=== PATIENT | male | born 1955 | race African-American/Black ===

== ENCOUNTER 2018-08-25 11:50 | Inpatient (IN) ==
[2018-08-25] MEDS ORDERED: LASIX IV ONE (16:14)
--- NOTE | 2018-08-25 17:03 | Diag Imaging Result Doc PS360 ---
EXAM: CHEST-2 VIEWS INDICATION: edema TECHNIQUE: 2 views COMPARISON: 08/16/2018 FINDINGS: The right pleural effusion has increased during the interval. It is now moderate to large in size. There is worsened atelectasis and/or infiltrate at the right lung base. No other new consolidations are identified. Cardiac silhouette is stable. IMPRESSION: Interval redevelopment of the right pleural effusion with adjacent atelectasis and/or infiltrate. Electronically signed by Matthew Loyd 08/25/2018 5:01 PM
[2018-08-25 17:15] LABS: BASO# 0.01 X1000 (0.0-0.2); BASO% 0.2 % (0.0-0.8); EOS# 0.03 X1000 (0.0-0.7); EOS% 0.6 % (0.0-10.0); HEMATOCRIT 39.6 % (42.0-52.0); HEMOGLOBIN 12.4 g/dL (14.0-18.0); LYMPH# 1.21 X1000 (1.2-3.4); LYMPH% 25.5 % (20.5-51.1); MCH 28.5 PG (27-31); MCHC 31.3 g/dL (33-37); MONO% 10.5 % (1.7-9.3); MPV 11.1 FL (7.4-10.4); NEUT% 63.2 % (42.2-75.2); PLT 203 X1000 (130-400); RBC 4.35 XMIL (4.7-6.1); RDW 17.4 % (11.5-14.5); WBC 4.75 X1000 (4.8-10.8)
[2018-08-25 17:35] LABS: ALB/GLOB RATIO 0.6; ALBUMIN 2.7 g/dL (3.5-5.0); CALCIUM 8.6 mg/dL (8.8-10.2); POTASSIUM 4.3 mmol/L (3.5-5.1); TOTAL BILIRUBIN 0.55 mg/dL (0.20-1.00); TOTAL PROTEIN 7.2 g/dL (6.3-8.3)
[2018-08-25 21:09] LABS: INR 0.98; PROTIME 13.8 Seconds (11.0-16.0)
[2018-08-25 21:11] LABS: MAGNESIUM 2.5 mg/dL (1.5-2.7)
[2018-08-25 21:12] LABS: HEMOGLOBIN A1C 6.4 % (4.8-6.0)
[2018-08-25 21:20] LABS: PTT 46.3 Seconds (22.3-41.8)
--- NOTE | 2018-08-25 22:46 | HISTORY AND PHYSICAL ---
CHIEF COMPLAINT: Swelling in lower extremities. HISTORY OF PRESENT ILLNESS: Patient is a 62-year-old male who presented to [facility] Emergency Department noting he is having increased bilateral lower extremity edema. Unfortunately Mr. Stewart is an extremely poor historian, very difficult to answer the questions that were asked. Does states he has been having swelling off and on since his cardiac arrest months ago. Notes that he was seen on the for swelling but states that it has gotten worse. States he was on Lasix but thinks Dr. Quintanilla stopped this 2 or 3 weeks ago. Is unclear as to when the swelling got worse, unclear if he had swelling when he was on Lasix, unclear how much worse the swelling has gotten although he does state that now he has shortness of breath with activity, does appears though he is having orthopnea and unable to lie flat in the bed as when asked a question he said shoo man. REVIEW OF SYSTEMS: Positive shortness of breath, increased work of breathing, dyspnea on exertion, extreme swelling in his bilateral lower extremities to above his knee. Denies any fevers, chills, denies cough, congestion, denies chest pain, palpitations. Denies abdominal pain, diarrhea, nausea, vomiting, dysuria, frequency, urgency. Denies melena, hematochezia, hemoptysis, hematemesis. Does not check his weight on any regular basis. ALLERGIES: No known drug allergies. MEDICATIONS: Atorvastatin 80 at bedtime, Brilinta 90 b.i.d., insulin, hydralazine, isosorbide ER 60 mg daily, albuterol, aspirin, Lasix 40, Coreg 12.5 although unclear as to when he actually took any of these. FAMILY HISTORY: Noncontributory. SOCIAL HISTORY: Patient stopped smoking greater than year ago. Does have a history of alcohol abuse although states he does not drink currently. PHYSICAL EXAM: Temperature 97.3, pulse 89, respiratory 20, BP 147/86. GENERAL: Patient is awake, alert, currently he is in no respiratory distress, he is quite pleasant to talk with, he is sitting up in the chair. HEENT: Normocephalic. NECK: Supple. CV: Regular rate. No murmurs. CHEST: Decreased breath sounds bilaterally. Positive rhonchi throughout, no wheezing. ABDOMEN: Soft, nondistended, nontender. EXTREMITIES: Moves all extremities well. He has 3+ pitting edema bilateral lower extremities to his midthigh. SKIN: Warm, dry. LABS: CBC essentially normal. CMP with a BUN at 31, creatinine 2.0, glucose 212. Chest x-ray demonstrates a right pleural effusion. ASSESSMENT: 1. Congestive heart failure with exacerbation with marked edema in his lower extremities. 2. Diabetes. 3. Known coronary artery disease . 4. Marked swelling his lower extremities. PLAN: We will admit patient the hospital, place on sliding scale insulin, will restart his home medications once the doses have been confirmed exactly what he is taking. Will place him on Lasix and will follow. Further orders as needed. cc: Lio Sunshine MD
[2018-08-25] MEDS ORDERED: ZOFRAN IV PRN (22:54)
[2018-08-25] MEDS ORDERED: TYLENOL PO PRN (22:54)
[2018-08-25] MEDS: LASIX IV SCH (23:41)
[2018-08-26] MEDS ORDERED: ASPIRIN PO ONE (02:41)
[2018-08-26] MEDS ORDERED: LOVENOX 1 MG/KG SUBQ SCH (02:45)
[2018-08-26 03:34] LABS: BASO# 0.01 X1000 (0.0-0.2); BASO% 0.2 % (0.0-0.8); EOS# 0.04 X1000 (0.0-0.7); EOS% 0.8 % (0.0-10.0); HEMATOCRIT 36.4 % (42.0-52.0); HEMOGLOBIN 11.2 g/dL (14.0-18.0); LYMPH% 30.5 % (20.5-51.1); MCH 27.8 PG (27-31); MCHC 30.8 g/dL (33-37); MCV 90.3 FL (81-99); MONO# 0.56 X1000 (0.11-0.59); MONO% 10.7 % (1.7-9.3); MPV 11.1 FL (7.4-10.4); NEUT# 3.03 X1000 (1.4-6.5); NEUT% 57.8 % (42.2-75.2); PLT 212 X1000 (130-400); RBC 4.03 XMIL (4.7-6.1); RDW 17.2 % (11.5-14.5); WBC 5.24 X1000 (4.8-10.8)
[2018-08-26 03:56] LABS: ALB/GLOB RATIO 0.8; ALBUMIN 2.7 g/dL (3.5-5.0); CALCIUM 8.1 mg/dL (8.8-10.2); CREATININE 2.3 mg/dL (0.7-1.2); POTASSIUM 4.4 mmol/L (3.5-5.1); TOTAL BILIRUBIN 0.52 mg/dL (0.20-1.00); TOTAL PROTEIN 6.2 g/dL (6.3-8.3)
[2018-08-26] MEDS: LOVENOX SUBQ SCH ×2 (05:00→20:47)
[2018-08-26] MEDS: HUMALOG SUBQ SCH ×4 (06:35→20:48)
--- NOTE | 2018-08-26 08:37 | EKG Report ---
Test Performed on : 08/26/2018 01:54:40 AM Test Reason : Elevated Troponin, Poss. NSTEMI Blood Pressure : / mmHG Vent. Rate : 088 BPM Atrial Rate : 088 BPM P-R Int : 106 ms QRS Dur : 112 ms QT Int : 404 ms P-R-T Axes : 006 -07 212 degrees QTc Int : 488 ms Sinus rhythm. with short [place] Voltage criteria for left ventricular hypertrophy Cannot rule out Inferior infarct , age undetermined ST & T wave abnormality, consider lateral ischemia Abnormal ECG When compared with ECG of 16-AUG-2018 13:14, (Unconfirmed) T wave inversion more evident in Inferior leads Confirmed by Devaughn RAYMOND, Randall Darnell ([id number]) on 08/26/2018 1:12:37 PM
--- NOTE | 2018-08-26 09:42 | PROGRESS NOTE ---
DATE: 08/26/2018 OVERNIGHT EVENTS: Mr. Stewart was admitted for worsening bilateral lower extremity edema and shortness of breath on exertion, who was admitted for intravenous diuresis for acute exacerbation of chronic systolic congestive heart failure. He did not have chest pain or palpitation on admission. Overnight when his blood tests were drawn, his troponins came out to be elevated to 8. Repeat troponin 3 hours later was 7. During this entire episode, he did not have chest pain. He was given 325 mg of aspirin and was started on therapeutic doses of enoxaparin. SUBJECTIVE: In the morning when I saw the patient, he is lying in the bed comfortably. Denies any chest pain, palpitation. He feels a little short of breath when he tries to do physical exertion. Otherwise, denies shortness of breath. He is most worried about his lower extremity edema. He states that he had multiple thoracenteses in the past; the most recent one was 1 week ago. Since then, he denies any chest pain or palpitation. However, he did have an episode of nausea one time. We discussed about his elevated troponin and, considering his previous history of heart attack, we discussed with him about transferring him to [facility]. I answered all of his questions. OBJECTIVE: Vital signs: Temperature 99.4 degrees, pulse 86, blood pressure 143 /93, saturating 100% on room air. General examination: Physical examination reveals he does not appear in any acute distress. Appears a little tachypneic. Ears/nose/throat: Oral cavity is moist. Lungs: Air entry bilaterally equal in suprascapular region. Significantly decreased air entry in the right infrascapular region. Cardiovascular: S1, S2 normal. No murmur, rub, or gallop. Abdomen: Soft, nontender. Extremities: Edema affecting bilateral lower extremities 3 + extending up to the distal thighs. LABS: Suggestive of no leukocytosis. Hemoglobin, hematocrit, and platelets within acceptable range. Normal coagulation. Normal chemistry, except baseline chronic kidney disease stage III. Elevated troponins 8.1 on initial troponin, going down to 7.1 on repeat troponin examination. X-RAYS: EKG: At nighttime, the EKG did have anterolateral T-wave inversions which were more or less similar to previous EKG, which were obtained in March and May of this year. However, I could see new Q-waves in lead 3, which I did not see in the previous EKG when I compared. ASSESSMENT AND PLAN: 1. Acute on chronic systolic congestive heart failure due to dietary indiscretion, suspected medication noncompliance and inadequate Lasix dosing. Considering his elevated troponin, he might have had myocardial infarction, but currently the Q-wave suggests that his infarction might have become complete. Continue intravenous Lasix with close input and output monitoring. I will start his home carvedilol. 2. History of coronary artery disease, non-ST segment elevation myocardial infarction in 2016 and right coronary artery stent in July 2017 with now elevated troponins and Q waves in lead 3. This could be in the setting of acute coronary syndrome that might have happened recently. Continue patient on aspirin, high-dose statin, and enoxaparin therapeutic doses. Cardiology has been consulted. I will appreciate recommendation about starting Brilinta in future, which is his home medication. 3. History of insulin-dependent diabetes mellitus. Continue fingersticks, close blood sugar monitoring, and add sliding scale insulin as needed. 4. Recurrent right-sided pleural effusion. Continue intravenous Lasix. Depending on his course, will consult surgical team to see if he could be a candidate for surgical intervention considering his multiple recurrent pleural effusions on the right side. 5. Hyperlipidemia. Continue high-dose statin. 6. Hypertension. Continue Coreg. I will add his home isosorbide and hydralazine as tolerated. 7. CKD stage 3: Aware. Follow up frequent BMP. 7. Disposition: Patient remains inside the hospital. I will transfer patient to [facility]. Plan of care discussed with the patient. All of his questions have been answered. cc: MD PILO Marcus
[2018-08-26] MEDS: LIPITOR PO SCH ×2 (09:53→10:03)
[2018-08-26] MEDS: COREG PO SCH ×2 (09:53→20:47)
[2018-08-26] MEDS: ASPIRIN PO SCH (09:53)
[2018-08-26] MEDS: LASIX IV SCH ×2 (11:31→20:50)
--- NOTE | 2018-08-26 14:06 | CARDIOLOGY CONSULTATION ---
DATE: 08/26/2018 CHIEF COMPLAINT ON PRESENTATION: Shortness of breath. HISTORY OF PRESENT ILLNESS: Mr. Stewart is a 62-year-old black male with a history of ischemic cardiomyopathy. He is an extremely difficult patient to question. It seems that this has been going off and on for years but has worsened over the last few days. Per evaluation of the patient's history, he has not been compliant with his medications. He denies any overt orthopnea. He has not had any recent bouts of any chest pain. He seems to endorse some history of a cardiac arrest but I cannot find it on review of our notes in the office. PAST MEDICAL HISTORY: 1. Coronary disease. His last cardiac catheterization was in July of 2017 demonstrating a left main 30% lesion, LAD had a mid 50% lesion, distal 50% lesion, circumflex 20% lesion, marginal 60%, and RCA was a dominant vessel with an in-stent stenosis in the mid segment that was treated with a PCI at the time. 2. Ischemic cardiomyopathy. Most recent ejection fraction demonstrated in the 20 to 25% range. 3. Pneumonia. 4. Hypertension. 5. Hyperlipidemia. 6. Diabetes. 7. Tobacco abuse. 8. Chronic kidney disease. 9. Alcohol abuse. 10. Peripheral vascular disease. 11. Long history of noncompliance. SOCIAL HISTORY: Quit smoking greater than a year ago. Reportedly he is not currently drinking alcohol. FAMILY HISTORY: Significant for hypertension. REVIEW OF SYSTEMS: A 10 system review of systems is negative except for those things mentioned in HPI. PHYSICAL EXAMINATION: Vital signs: The patient is afebrile. His heart rate is 83. His blood pressure is 116/65. General: He is in no acute distress. HEENT: Oropharynx is moist. He has poor dentition. His eye examination shows pink conjunctivae, white sclerae. Neck: Examination shows no obvious thyromegaly or thyroid tenderness. Cardiovascular: He sounds to be in a regular rate and rhythm. He has no obvious murmurs. He has marked bilateral lower extremity edema and warm and well perfused lower extremities. Chest: Clear bilaterally with the exception of reduced breath sounds in the right base. Abdomen: Soft, nontender, nondistended. He has no obvious organomegaly. Skin: Warm and dry throughout without any rashes. Neurological: He is moving all extremities well. He has no lateralizing deficits. Psychiatric: He is alert, oriented, pleasant. Normal mood and affect. PERTINENT DATA: His chest x-ray shows interval redevelopment of a significant right-sided pleural effusion. His electrocardiogram previously at his office visit in June of 2018 demonstrated sinus rhythm, rate of 64 beats per minute. Diffuse ST-segment changes throughout. No clear evidence of significant Q-waves. His most recent EKG suggested inferior Q-waves with again diffuse ST-T segment changes. No ST elevation was identified. His EKG from August 16 demonstrates again Q-waves inferiorly. ST-segment changes diffusely. His lab data demonstrates a white count of 5.2, hematocrit 36, platelet count of 212,000. His sodium is 140, potassium 4.4, BUN 32, creatinine is 2.3. His troponin initially was 8.17 and since has come down to 6.1. He did have an enzyme of 0.068 back in July. His proBNP is greater than 35,000. ASSESSMENT: Mr. Stewart is a 62-year-old black male who was an extremely difficult historian with an ischemic cardiomyopathy. PLAN: He presents with medication noncompliance, no complaints of chest pain, and an EKG that does not appear to have changed much since his last 1 in the hospitalization. His lab abnormalities suggest florid volume overload. We have reinstitute his medications. We have limited I O data at this time but we will continue him on his current med regimen. I agree with having him on Lovenox as he currently is on. I would continue on aspirin, statin, and the Coreg. We will check an echo tomorrow if not already done. We will try to diurese the patient and consider potential re-ischemia evaluation, likely with a nuclear scan initially. cc: Ld Ortiz MD
[2018-08-26] MEDS: APRESOLINE PO SCH ×2 (14:11→17:16)
[2018-08-26] MEDS: MIRALAX PO SCH (20:47)
[2018-08-27] MEDS: LASIX IV SCH ×2 (01:38→22:07)
[2018-08-27 05:42] LABS: CREATININE 2.3 mg/dL (0.7-1.2); POTASSIUM 4.2 mmol/L (3.5-5.1)
[2018-08-27] MEDS: HUMALOG SUBQ SCH ×4 (06:15→22:09)
[2018-08-27] MEDS: COREG PO SCH ×2 (08:36→22:08)
[2018-08-27] MEDS: APRESOLINE PO SCH ×3 (08:36→16:51)
[2018-08-27] MEDS: ASPIRIN PO SCH (08:36)
[2018-08-27] MEDS: LIPITOR PO SCH (08:37)
[2018-08-27] MEDS: MIRALAX PO SCH ×2 (08:37→22:09)
[2018-08-27] MEDS: LOVENOX SUBQ SCH ×2 (08:37→22:08)
[2018-08-27] MEDS ORDERED: LASIX IV SCH ×2 (11:30)
--- NOTE | 2018-08-27 11:57 | PROGRESS NOTE ---
DATE: 08/27/2018 OVERNIGHT: No acute events. His troponins were trending down. He did not have acute event. Cardiology had evaluated the patient, and it was suggested that he was on an appropriate regimen. SUBJECTIVE: He is denying any chest pain. His shortness of breath is a little better. He did not collect his urine appropriately, and he might have not appropriate urine charting. We discussed about his heart condition, possible heart attack intervention. I answered all of his questions. OBJECTIVE: Vital Signs: Temperature 97.6, pulse 69, blood pressure 120/60, saturating 100% on room air. PHYSICAL EXAMINATION: He does not appear in any acute distress. Not tachypneic. Oral cavity is moist. No pallor, cyanosis, clubbing or icterus. Air entry is bilaterally equal in suprascapular region significantly decreased air entry in the right infrascapular region. Cardiovascular: S1, S2 normal. No murmur, rub, or gallop. Abdomen soft, nontender. Extremities: Edema affecting the bilateral lower extremities up to distal thigh. LABORATORY DATA: Labs today suggestive of normal electrolytes, stable BUN and creatinine and what appears to be CKD stage 3. No new imaging today. ASSESSMENT AND PLAN: 1. [id number] systolic congestive heart failure due to dietary indiscretions. Suspected medication noncompliance, inadequate Lasix dosing, suspected new acute coronary syndrome event. Continue intravenous Lasix with close input and output monitoring. He did not have good urine output yesterday, and I am going to increase his Lasix dosing in frequency today and will follow up BMP tomorrow. 2. History of coronary artery disease, non-segment elevation myocardial infarction in 2016 and right coronary artery stent in July, with elevated troponin on presentation and Q- waves in lead III could be in the setting off an ischemic acute coronary syndrome event before hospitalization. Continue aspirin, high-dose statin, enoxaparin at therapeutic doses. Cardiology on board. We appreciate recommendation about restarting Brilinta infusion. 3. History of insulin-dependent diabetes mellitus. Continue fingersticks, close blood sugar monitoring and sliding scale insulin. 4. Recurrent right pleural effusion. Continue intravenous Lasix. I will follow up with chest x- ray on 08/28/2017. If he does not respond to intravenous Lasix, I will consider surgical consultation considering his recurrent pleural effusion to see if would need further surgical intervention. 5. Hyperlipidemia. Continue high-dose statin. 6. Hypertension. Continue Coreg and hydralazine. I will add isosorbide as tolerated. 7. Chronic kidney disease, stage 3, aware. Follow up frequent BMP. It could be related to long- standing hypertension and diabetes and follow up with hemoglobin A1c. Apparently, the patient gave a vague history which could suggest suspected renal artery stenosis. 8. Severe peripheral artery disease with significant decreased bilateral radial pulses. He also had bilateral lower extremity edema. So, pedal pulses could not be assessed. Continue aspirin and statin. DISPOSITION: Patient remains inside [facility]. cc: Jaime Greene MD
--- NOTE | 2018-08-27 14:07 | CARDIOLOGY PROGRESS NOTE ---
DATE: 08/27/2018 SUBJECTIVE: Mr. Stewart continues to complain of shortness of breath as well as lower extremity edema. PHYSICAL EXAMINATION: Vital Signs: He is afebrile. Heart rate is 68. His blood pressure is 126/72. General: He is in no acute distress. Cardiovascular: He sounds to be in a regular rate and rhythm. He has no obvious murmurs. His neck veins do appear distended. He has 2+ bilateral lower extremity edema and warm and well perfused lower extremities. Chest/Lungs: His chest exam has reduced breath sounds at the bases. No increased work of breathing. PERTINENT DATA: Sodium 141, potassium 4.2, BUN 37, creatinine 2.3 which is roughly stable from yesterday. ASSESSMENT: Mr. Stewart is a 62-year-old male with ischemic cardiomyopathy. PLAN: I will give him a 5 mg dose of metolazone in the morning. Reduce his Lasix to b.i.d. dosing. In addition, I have also added back in his ISDN at 10 t.i.d. We will ensure he has laboratories in the morning including a BMP and a proBNP as well as a magnesium. We will check his lipids. I will order a rest perfusion scan in the morning and try to compare this to other studies with his. cc: Ld Ortiz MD
--- NOTE | 2018-08-27 14:21 | ECHO REPORT ---
ORDER DATE: 08/27/2018 INDICATION: Congestive heart failure. FINDINGS: 1. The right atrium appears moderately enlarged at 5.1 cm. 2. Mild tricuspid regurgitation. RV systolic pressure of 43 mmHg. 3. Mild right ventricular enlargement with moderate right ventricular systolic dysfunction. 4. Mild pulmonic insufficiency. 5. Severe left atrial enlargement with volume index of 47. 6. No mitral valve prolapse. Mild mitral regurgitation. 7. Left ventricle was dilated with an end-diastolic dimension of 6 cm. Mild left ventricular hypertrophy with a posterior and interventricular septal wall thickness of 1.4 and 1.3 cm respectively. Severe reduction in LV systolic function with an estimated EF in the 15% to 20% range. 8. There is severe global hypokinesis. 9. Aortic valve opens well. It is trileaflet. No evidence of stenosis or insufficiency. 10. Aorta appears normal on visualized segments. 11. No pericardial effusion seen. cc: Ld Ortiz MD
[2018-08-27] MEDS: ISORDIL PO SCH ×2 (16:51→16:52)
--- NOTE | 2018-08-27 19:52 | PROGRESS NOTE ---
DATE: 08/27/2018 SUBJECTIVE: I was informed that Mr. Stewart has not been collecting his urine in the urinal and had been going inside the bathroom so we have not been able to monitor his urine output. I was also informed that there has been bedcrunch and however suggested if any of my patients was stable I should transfer them out of [facility]. Mr. Stewart has not had any telemetry events since his admission, has been almost 36 hours. He denies any chest pain or shortness of breath. He is on a stable regimen and hemodynamically stable, so I will transfer him out of [facility] to medical floor with telemetry. cc: Jaime Greene MD MTDD
[2018-08-28] MEDS: HUMALOG SUBQ SCH ×4 (06:27→20:58)
--- NOTE | 2018-08-28 06:57 | Diag Imaging Result Doc PS360 ---
EXAM: CHEST-PORTABLE HISTORY: Follow up right pleural effusion TECHNIQUE: Portable chest, single view COMPARISON: 08/25/2018 FINDINGS: There is a moderate-sized right-sided pleural effusion. There are infiltrates and atelectasis within the right lung. The left lung remains clear. Heart is borderline mildly prominent. No left pleural effusion. IMPRESSION: Mild worsening in the infiltrates and atelectasis within the right lung with a moderate-sized pleural effusion. Electronically signed by Juan Henderson 08/28/2018 6:55 AM
[2018-08-28 07:41] LABS: CALCIUM 8.8 mg/dL (8.8-10.2); CREATININE 2.4 mg/dL (0.7-1.2); MAGNESIUM 2.1 mg/dL (1.5-2.7); POTASSIUM 4.1 mmol/L (3.5-5.1)
[2018-08-28 08:51] LABS: HDL 31 mg/dL (35-55); TRIGLYCERIDES 117 mg/dL (39-160); VLDL 23 mg/dL
[2018-08-28] MEDS ORDERED: ZAROXOLYN PO SCH (09:00)
[2018-08-28 09:36] LABS: CHOLESTEROL 181 mg/dL (0-200); LDL 126 mg/dL
[2018-08-28 09:39] LABS: RISK RATIO 5.83
--- NOTE | 2018-08-28 11:42 | EKG Report ---
Test Performed on : 08/26/2018 07:36:42 AM Test Reason : Elevated Troponin,CHF Blood Pressure : / mmHG Vent. Rate : 087 BPM Atrial Rate : 087 BPM P-R Int : 104 ms QRS Dur : 110 ms QT Int : 388 ms P-R-T Axes : 027 -04 244 degrees QTc Int : 466 ms Sinus rhythm. with short [place] Voltage criteria for left ventricular hypertrophy ST & T wave abnormality, consider inferolateral ischemia Abnormal ECG When compared with ECG of 26-AUG-2018 07:31, (Unconfirmed) No significant change was found Confirmed by Gucci RAYMOND, Jamal Oakley ([id number]) on 08/28/2018 7:14:56 PM
--- NOTE | 2018-08-28 13:38 | Diag Imaging Result Doc PS360 ---
EXAM: US THORACENTESIS W/IMAGE GUIDE HISTORY: large R pleural effusion TECHNIQUE: Ultrasound-guided thoracentesis COMPARISON: None. FINDINGS: Prior to the procedure I discussed the risk and benefits with the patient. Primary risks include bleeding, infection, and pneumothorax. Questions were answered. Consent was given. The permit was signed. Ultrasound was used to localize the largest fluid collection in the right chest. This area was cleaned and draped in the normal fashion. Lidocaine was used as a local anesthetic. Needle and catheter were advanced into the fluid collection on the first attempt without difficulty. The needle was withdrawn. The catheter was hooked to hand suction. Approximately 1.5 L of straw-colored fluid were withdrawn without difficulty. The catheter was then withdrawn. No immediate postprocedural complications. IMPRESSION: Ultrasound-guided thoracentesis with no immediate complication. Electronically signed by Juan Henderson 08/28/2018 1:36 PM
[2018-08-28] MEDS: APRESOLINE PO SCH ×3 (13:42→17:34)
[2018-08-28] MEDS: ISORDIL PO SCH ×2 (13:42→13:49)
--- NOTE | 2018-08-28 13:46 | Diag Imaging Result Doc PS360 ---
EXAM: CHEST-2 VIEWS HISTORY: POST RIGHT THORA TECHNIQUE: Inspiratory and expiratory chest, two views COMPARISON: 5:40 AM FINDINGS: Interval decrease in the size of the right-sided pleural effusion following the thoracentesis. No pneumothorax. There is atelectasis and/or infiltrates which remain in the right lung base. The left lung remains clear. IMPRESSION: No postprocedural pneumothorax. Electronically signed by Juan Henderson 08/28/2018 1:43 PM
[2018-08-28] MEDS: COREG PO SCH ×2 (13:48→20:57)
[2018-08-28] MEDS: ASPIRIN PO SCH (13:48)
[2018-08-28] MEDS: LOVENOX SUBQ SCH ×2 (13:49→20:57)
[2018-08-28] MEDS: MIRALAX PO SCH ×2 (13:49→20:57)
[2018-08-28] MEDS: LIPITOR PO SCH (13:49)
[2018-08-28] MEDS: LASIX IV SCH ×2 (14:29→20:57)
[2018-08-28 15:59] LABS: LDH BODY FLUID 104 U/L; TOTAL PROT BODY FLUID 1.2 g/dL
--- NOTE | 2018-08-28 16:10 | Diag Imaging Result Document ---
PROCEDURE NAME: MYOCARDIAL PERFU SCAN, REST - 08/28/2018 RESTING MYOCARDIAL PERFUSION SCAN: TECHNIQUE AND FINDINGS: 36.7 mCi of Cardiolite was injected. Gated SPECT images were obtained in standard views. Images reveal left ventricle is dilated. There is a large-sized defect in the inferior wall, inferoapical wall, inferolateral and inferoseptal wall. Left ventricular ejection fraction by gated SPECT was 20%. There is global hypokinesis. CONCLUSIONS: Dilated left ventricle. This is a resting myocardial perfusion scan with large- sized defect, severe grade, in the inferior wall, inferoseptal, inferolateral and inferoapical wall. Left ventricular ejection fraction 20%. cc: MD Ld Ortega MD
--- NOTE | 2018-08-29 04:32 | CARDIOLOGY PROGRESS NOTE ---
DATE: 08/28/2018 SUBJECTIVE: Mr. Stewart reports he feels better. He underwent a right-sided thoracentesis today with removal of around a liter and a half. He has no complaints of chest pain. PHYSICAL EXAMINATION: Vital signs: He is afebrile. Heart rate is 72, blood pressure 118/70. His intake and output continues to be negative, but there is some question of accuracy as the patient has not had good recording of his oral intake nor has he had adequate output recording. General: He is in no acute distress. Cardiovascular: He sounds to be in a regular rate and rhythm. He has no obvious murmurs. He has no S3. He has marked bilateral lower extremity edema. He continues to appear to have elevation of his JVP. He has warm and well perfused extremities. Chest exam: Notable for mild reduction in breath sounds on the right base although they appear somewhat improved. He has no increased work of breathing. Abdomen: Soft, nontender. PERTINENT DATA: Sodium 137 potassium 4.1, BUN 37, creatinine 2.4. ProBNP is 31 ,009, which is down from his initial greater than 35,000. ASSESSMENT: Mr. Stewart is a 62-year-old gentleman with ischemic cardiomyopathy. PLAN: The patient seems to be diuresing, however, our ability to assess this is somewhat compromised secondary to the patient's uncooperativeness with measuring his intake and output. His proBNP does seem to be coming down. We have made significant adjustments in his medications with the advancement of his ISDN and hydralazine. Also, the patient was not compliant with these medications, so likely we are initiating essentially new medications for him at this time. We will continue to check his labs. A BMP has been ordered for the morning. I will recheck a proBNP as well as a magnesium. cc: Ld Ortiz MD [facility]
[2018-08-29] MEDS: HUMALOG SUBQ SCH ×5 (06:01→21:28)
[2018-08-29 07:50] LABS: CALCIUM 8.5 mg/dL (8.8-10.2); CREATININE 2.3 mg/dL (0.7-1.2); MAGNESIUM 1.9 mg/dL (1.5-2.7); TOTAL PROTEIN 5.5 g/dL (6.3-8.3)
[2018-08-29] MEDS: LOVENOX SUBQ SCH (08:39)
[2018-08-29] MEDS: APRESOLINE PO SCH ×3 (08:39→17:06)
[2018-08-29] MEDS: LIPITOR PO SCH (08:39)
[2018-08-29] MEDS: COREG PO SCH ×2 (08:40→21:36)
[2018-08-29] MEDS: ISORDIL PO SCH ×3 (08:40→17:06)
[2018-08-29] MEDS: LASIX IV SCH ×2 (08:40→21:37)
[2018-08-29] MEDS: ASPIRIN PO SCH (08:40)
[2018-08-29] MEDS: MIRALAX PO SCH ×2 (08:40→21:37)
--- NOTE | 2018-08-29 08:58 | PROGRESS NOTE ---
DATE: 08/28/2018 INTERVAL HISTORY: The patient with some diuresis on high-dose Lasix. Some difficulty measuring intake and output as the patient has not been compliant with using the urinal. Discussed with patient. Still some dyspnea especially with activity, but does seem to be improving slowly. Cardiology following and planning for perfusion scan today. Given ongoing large volume pleural effusion, also planning on thoracentesis later today. No new complaints. No acute events overnight. REVIEW OF SYSTEMS: A 12-point review of systems is negative except as per interval history. LABORATORY DATA: BUN 37, creatinine 2.4, glucose 128. BNP 31,000. Basic metabolic panel, otherwise, unremarkable. IMAGING: Chest x-ray showing [id number] right pleural effusion and slight worsening of atelectasis in the right lung. VITAL SIGNS: T-max 98.7, pulse 70, blood pressure 124/69, O2 sat 99% on room air. PHYSICAL EXAMINATION: General: In no acute distress. HEENT: Normocephalic, atraumatic, moist mucous membranes. No cervical adenopathy. Cardiovascular: Regular rate and rhythm. No rubs or gallops noted. Pulmonary: Good air entry. Decreased at the right base, otherwise, largely clear. Abdomen soft, nontender, nondistended. Bowel sounds positive. Extremities: Peripheral pulses decreased but intact. Significant bilateral lower extremity edema remains. Neurologic: Cranial nerves 2-12 grossly intact. No focal motor or sensory deficits. Psychiatric: Normal mood and affect. Asleep but easily arousable and oriented x3. Skin: No new rashes or lesions noted. ASSESSMENT AND PLAN: 1. [id number] congestive heart failure, likely with medical noncompliance. Given significant elevated troponin on admission may also have had a new cardiac event. Going for continuing Lasix and going for perfusion scan today to clarify status and determine the need for cardiac cath. 2. Coronary artery disease, Non-ST elevation myocardial infarction. Patient with elevated troponin on presentation, which did trend down. Continuing aspirin, statin, Lovenox. Cardiology is on board and planning for perfusion testing to determine the need for further intervention. 3. Diabetes, reasonable control. Sugars were all on current sliding scale insulin. Continue to monitor. 4. Right pleural effusion related to systolic congestive heart failure. A little improvement with Lasix. We will get a thoracentesis today, primarily for therapeutic relief. 5. Hyperlipidemia. Continue statin. 6. Hypertension, reasonable control with Coreg, hydralazine, isosorbide dinitrate and Lasix. 7. Chronic kidney disease, 3, bordering on 4. Some slight up trend in creatinine but, overall, pretty stable. Continue to monitor kidney function in a setting of progressive diuresis. 8. Peripheral arterial disease. Continue aspirin and statin as above. 9. Deep venous thrombosis prophylaxis; Lovenox.
--- NOTE | 2018-08-29 21:08 | PROGRESS NOTE ---
DATE: 08/29/2018 INTERVAL HISTORY: The patient with some further diuresis. Dyspnea largely resolved and saturating well on room air. Still some lower extremity edema but states this is markedly improved from previous. No new complaints, no acute events overnight. Status post successful right thoracentesis yesterday with 1.5 L out. REVIEW OF SYSTEMS: Twelve point review of systems negative except as per interval history. LABS: Bicarb 23, BUN 38, creatinine 2.3, glucose 135, alkaline phosphatase 282, total protein 5.5, pleural fluid total protein 1.2, pleural fluid LDH 104, serum LDH 282. VITALS: T-max 98.7 degrees, pulse 75, respirations 20, blood pressure 132/78, O2 saturation 99% on room air. PHYSICAL EXAMINATION: General: No acute distress. Vitals as above. HEENT: Normocephalic, atraumatic. Moist mucous membranes. No cervical adenopathy. Cardiovascular: Regular rate and rhythm. No murmur, murmurs, rubs, or gallops noted. Pulmonary: Good air entry, still slightly decreased at right base but much less than previous otherwise clear to auscultation. Abdomen: Soft, nontender, nondistended. Bowel sounds positive. Extremities: Peripheral pulses decreased but intact, bilateral lower extremity edema 1 to 2+ unchanged. Neurologic: Cranial nerves 2-12 grossly intact. No focal motor sensory deficits. Psychiatric: Normal mood and affect. Awake, alert, oriented x3. Skin: No new rashes or lesions noted. ASSESSMENT AND PLAN: 1. Acute on systolic congestive heart failure likely medical noncompliance. Significantly elevated troponin on admission. Perfusion scan yesterday showing significant defect but previous scan not available to me. Awaiting cardiology evaluation of current versus previous scan to see if any further evaluation or treatment is needed for this. Acute congestive heart failure essentially resolved at this point, still some changes on x-ray but oxygenating well. Dyspnea essentially resolved and lower extremity edema markedly improved. Likely approaching maximum benefit of hospitalization at this point. Awaiting final Cardiology recs. 2. Coronary artery disease, non-ST segment elevation myocardial infarction: Patient with elevated troponin on admission which did trend down, continuing aspirin, statin, Lovenox. Awaiting final Cardiology recs as above. 3. Diabetes reasonable control of glucose on current sliding scale insulin, continue to monitor. 4. Right pleural effusion: Related to congestive heart failure as above. Status post thoracentesis 08/28/2018 with 1.5 L removed, pleural fluid studies consistent with transudate which is consistent with his heart failure. 5. Hyperlipidemia. Continue statin. 6. Hypertension reasonable control with Coreg, hydralazine, isosorbide and Lasix. 7. Chronic kidney disease 3 border on 4 very slight up trend in creatinine but overall stable, continue monitoring kidney function. 8. Peripheral arterial disease, continue aspirin and statin as above. 9. Deep vein thrombosis prophylaxis Lovenox. 10. Disposition. Respiratory status stable, lower extremity edema markedly improved, pleural effusion drained. Plan for discharge home once he is cleared by Cardiology.
[2018-08-30] MEDS: HUMALOG SUBQ SCH ×4 (05:20→21:56)
[2018-08-30] MEDS: ULTRAM PO PRN (08:26)
[2018-08-30] MEDS: LIPITOR PO SCH (08:26)
[2018-08-30] MEDS: PLAVIX PO SCH (08:26)
[2018-08-30] MEDS: COREG PO SCH ×2 (08:26→22:58)
[2018-08-30] MEDS: ISORDIL PO SCH ×3 (08:26→16:28)
[2018-08-30] MEDS: APRESOLINE PO SCH ×3 (08:26→16:29)
[2018-08-30] MEDS: LASIX IV SCH (08:27)
[2018-08-30] MEDS: MIRALAX PO SCH ×2 (08:28→21:56)
[2018-08-30] MEDS ORDERED: LOVENOX SUBQ SCH (09:00)
[2018-08-30] MEDS: ASPIRIN PO SCH (09:27)
[2018-08-30 10:11] LABS: CALCIUM 8.5 mg/dL (8.8-10.2); CREATININE 2.5 mg/dL (0.7-1.2)
--- NOTE | 2018-08-30 10:12 | Diag Imaging Result Doc PS360 ---
EXAM: CHEST-2 VIEWS 08/30/2018 HISTORY: dyspnea, pleural effusion TECHNIQUE: PA and lateral chest COMMENT: There is elevation of the left hemidiaphragm and blunting the costophrenic angle which may indicate pleural effusion. The atelectasis present in the right middle and lower lobes at the time the previous examination of 08/28/2018 has diminished. The left lung is stable in appearance. The heart size is at the upper limits of normal. IMPRESSION: Improved right basilar atelectasis. Right pleural effusion. Electronically signed by Chan Abdi 08/30/2018 10:10 AM
[2018-08-30] MEDS ORDERED: LIDODERM TOP ONE (10:40)
--- NOTE | 2018-08-30 12:23 | PROGRESS NOTE ---
DATE: 08/30/2018 SUBJECTIVE: This patient has been complaining of nose bleed. I have stopped the Lovenox but I will continue with aspirin and Plavix since this patient has an ischemic cardiomyopathy, non- STEMI. Cardiology department on board. I have requested to the nurse to notify the Cardiology aitchbone breaker today about the nosebleed. On the other hand, I will continue with the same management. He is complaining of back pain. He got a thoracentesis done on 08/28/2018 and that area is sore. I will put a patch of lidocaine and I will continue with the tramadol. OBJECTIVE: Vital Signs: Temperature 97.5 degrees, pulse 60, respiratory rate 18, blood pressure 109/48, oxygen saturation 100% on room air. HEENT: Head normocephalic. No trauma. PERRLA. Neck: Supple. No JVD. No masses. Central trachea. Chest: Clear to auscultation. Some crepitus and rales at the bases, mostly on the right side. Abdomen: Soft, nontender, nondistended. No hepatosplenomegaly. Extremities: 2+ lower extremity edema. No clubbing. No cyanosis. Neurological: The patient is alert and oriented x3. No focal deficits. LABORATORY: Sodium 134, potassium 4, chloride 97, bicarbonate 27, BUN 41, creatinine 2.5, glucose 109, calcium 8.5. ProBNP 24,278. ASSESSMENT AND PLAN: 1. Acute on chronic systolic heart failure likely due to medical noncompliance. We will continue with the same management. Cardiology Department on board. Continue with diuresis. We have been getting a negative balance for the past few days, ProBNP lower compared with admission but still elevated at 24,000. 2. Ischemic cardiomyopathy, likely non ST elevation myocardial infarction. Continue this patient on Plavix, aspirin, and statin. I will continue following the Cardiology recommendations. 3. Type 2 diabetes. Continue with the same management of sliding scale insulin and pattern of blood sugar. 4. Right pleural effusion status post thoracentesis on 08/28/2018, 1.5 L of fluid has been removed. This is a transudate which is consistent with heart failure. He is complaining of pain in the area of the thoracentesis. I will put a patch of lidocaine. 5. Hyperlipidemia. Continue with statins. 6. Hypertension. Continue with same management. 7. Chronic kidney disease, stage 3 to 4. Continue to monitor. He is getting diuretics. We will monitor this closely. 8. Peripheral arterial disease. Continue with aspirin, Plavix. 9. Deep vein thrombosis prophylaxis. I will hold the Lovenox because this patient is having a nose bleed. I will continue aspirin and Plavix. 10. Nosebleed. Will hold the Lovenox and put some pressure in that area and at the moment of my physical exam, it has already stopped. DISPOSITION: He seems to be getting better. We will continue following the recommendation of Cardiology Department and I will discharge this patient home once he is cleared by Cardiology. cc: Rigo Franco MD
--- NOTE | 2018-08-30 16:59 | PROGRESS NOTE ---
DATE: 08/30/2018 SUBJECTIVE: Patient continues without shortness of breath or chest discomfort on room air. He has been bothered with nose bleed today. Lovenox has been discontinued. He relates some problems with left lower extremity edema prior to coming into the hospital. There has been no angina or chest pain. Chief complaint has been pretty much shortness of breath prior to coming to the hospital. OBJECTIVE: Blood pressure 107/80, heart rate 70, oxygen saturation 100% on room air. There is no significant jugular venous distention.Chest: Reveals significant diminished breath sounds in the right base and minimally diminished breath sounds in the most basal part of the left posterior chest. Cardiac: Reveals a regular rate and rhythm without appreciable murmur or gallop. Extremities: Demonstrate mild edema a little worse on the left side. LABORATORY DATA: Includes sodium 134, potassium 4.0, chloride 97, carbon dioxide 27, BUN 41, creatinine 2.5, glucose 109. Repeat chest x-ray today shows elevated right hemidiaphragm suspicious for subpulmonic effusion on the right. Mild cardiomegaly demonstrated. IMPRESSION: 1. Acute on chronic systolic heart failure with prominent pleural effusions mostly on the right side which has been recurrent. Patient improved with diuresis and thoracentesis. 2. Ischemic cardiomyopathy, severe. 3. Lower extremity swelling, rule out DVT. 4. Type 2 diabetes mellitus. 5. Hypertension. 6. Hyperlipidemia. 7. Chronic kidney disease stage 3 to stage 4. RECOMMENDATIONS: 1. Continue diuresis at more cautious rate. 2. Venous Doppler study of the lower extremities. 3. Pulmonary toilet/incentive spirometry. 4. Noncontrast chest CT scan tomorrow to further assess unresolved pleural effusion and unrelenting atelectasis of right lower lung segments. cc: Eldon Robins MD
--- NOTE | 2018-08-30 17:54 | Diag Imaging Result Doc PS360 ---
EXAM: CT THORAX W/O CONTRAST 08/30/2018 HISTORY: persistent atelectasis right lower lobe TECHNIQUE: This exam was performed using automated exposure control, adjustment of mA or kV according to patient size, and/or use of iterative reconstruction technique. COMMENT: There is a large pleural effusion on the right. This was also the case on 04/17/2018. The pleural effusion which was present on the left side is essentially resolved. The appearance of the mediastinum has not changed significantly since the previous study. There is somewhat improved atelectasis of the right lower lobe and a markedly improved atelectasis in the right middle lobe. There is a groundglass opacity demonstrated best on image 34 in the right upper lobe which was not clearly present on the previous examination. This is associated with a small nodular opacity on image 33. There is also groundglass opacity in the left upper lobe on image 36, also not present at the time the previous study, and focal emphysematous change laterally in the left upper lobe which was present at the time the previous study. There is some groundglass opacity on image 53 in the superior segment of the left lower lobe which was not previously present. There is improved atelectasis in the posterior costophrenic sulcus of the left lower lobe. IMPRESSION: Improved right pleural effusion and right middle and lower lobe atelectasis. New groundglass opacities bilaterally which may indicate minimal pneumonia. Advise follow-up CT examination in six months. Electronically signed by Chan Abdi 08/30/2018 5:52 PM
[2018-08-31] MEDS: HUMALOG SUBQ SCH ×4 (06:02→20:57)
[2018-08-31 07:18] LABS: BASO# 0.01 X1000 (0.0-0.2); BASO% 0.2 % (0.0-0.8); EOS# 0.04 X1000 (0.0-0.7); EOS% 0.8 % (0.0-10.0); HEMATOCRIT 27.6 % (42.0-52.0); HEMOGLOBIN 8.4 g/dL (14.0-18.0); LYMPH# 1.32 X1000 (1.2-3.4); LYMPH% 26.7 % (20.5-51.1); MCH 27.4 PG (27-31); MCHC 30.4 g/dL (33-37); MCV 89.9 FL (81-99); MONO# 0.64 X1000 (0.11-0.59); MONO% 12.9 % (1.7-9.3); MPV 11.6 FL (7.4-10.4); NEUT# 2.94 X1000 (1.4-6.5); NEUT% 59.4 % (42.2-75.2); PLT 183 X1000 (130-400); RBC 3.07 XMIL (4.7-6.1); RDW 16.8 % (11.5-14.5); WBC 4.95 X1000 (4.8-10.8)
[2018-08-31 07:45] LABS: CREATININE 2.7 mg/dL (0.7-1.2); MAGNESIUM 1.9 mg/dL (1.5-2.7); POTASSIUM 3.9 mmol/L (3.5-5.1)
[2018-08-31] MEDS ORDERED: LIDODERM TOP ONE (08:21)
--- NOTE | 2018-08-31 09:30 | PROGRESS NOTE ---
DATE: 08/31/2018 SUBJECTIVE: This patient is feeling a little bit better. He had some nosebleed yesterday during the day but not during the night or today. I will continue with the same management Cardiology department on board. They have adjusted some of the medications including his Lasix. OBJECTIVE: Vital Signs: Temperature 98.4 degrees, pulse 80, respiratory rate 14, blood pressure 116/67, oxygen saturation 100% on room air. HEENT: Head normocephalic. No trauma. PERRLA. Neck: Supple. No JVD. No masses. Central trachea. Chest: Clear to auscultation. Some crepitus and rales at the bases, mostly on the right side. Abdomen: Soft, nontender, nondistended. No hepatosplenomegaly. Extremities: There is 1+ lower extremity edema. No clubbing. No cyanosis. Neurological Examination: Alert and oriented x3. No focal deficits. Laboratory: WBC 4.9, hemoglobin 8.4, hematocrit 27.6, platelets 183,000. Sodium 139, potassium 3.9, chloride 101, bicarbonate 28, BUN 46, creatinine 2.7, glucose 136, calcium 8, magnesium 1.9. ASSESSMENT AND PLAN: 1. Acute on chronic systolic heart failure, likely due to medical noncompliance. Continue with the same management. Cardiology department on board. Continue with diuresis which has been decreased a little bit due to his kidney dysfunction. 2. Ischemic cardiomyopathy, likely non-ST elevation myocardial infarction. Continue with Plavix, aspirin, and statin. Continue following cardiology recommendations. 3. Type 2 diabetes. Continue with the same management, sliding-scale insulin and pattern of blood sugar. 4. Right pleural effusion, status post thoracentesis on 08/28/2018. There has 1.5 L of fluid removed, likely transudate. I will continue using a lidocaine patch at the thoracentesis area due to pain. 5. Hyperlipidemia. Continue with statins. 6. Hypertension. Continue with the same management. Stable. 7. Chronic kidney disease stage 3 to 4. Continue to monitor. He is getting diuretics. We need to monitor this closely. The dose of the diuretics has been decreased, and the BUN and creatinine increased a little bit compared with yesterday. Urine output has been stable though. 8. Peripheral arterial disease. Continue with aspirin and Plavix. 9. Deep vein thrombosis prophylaxis. I held his Lovenox because this patient has been having a nosebleed. The hemoglobin dropped to 8.4 down from 11. We will continue to monitor this patient closely. 10. Nosebleed. No bleeding during the night or during the day today. We will monitor this closely. cc: Rigo Franco MD
[2018-08-31] MEDS: PLAVIX PO SCH (11:07)
[2018-08-31] MEDS: LIPITOR PO SCH (11:07)
[2018-08-31] MEDS: ISORDIL PO SCH ×3 (11:07→16:58)
[2018-08-31] MEDS: ASPIRIN PO SCH (11:07)
[2018-08-31] MEDS: LEVAQUIN PO SCH (11:07)
[2018-08-31] MEDS: APRESOLINE PO SCH ×3 (11:07→16:58)
[2018-08-31] MEDS: COREG PO SCH ×2 (11:08→21:54)
[2018-08-31] MEDS: ULTRAM PO PRN (11:08)
[2018-08-31] MEDS: MIRALAX PO SCH ×2 (11:11→20:58)
[2018-08-31] MEDS: LASIX IV SCH (11:11)
[2018-09-01] MEDS: HUMALOG SUBQ SCH ×4 (05:59→21:33)
[2018-09-01 07:09] LABS: BASO# 0.01 X1000 (0.0-0.2); BASO% 0.2 % (0.0-0.8); EOS# 0.04 X1000 (0.0-0.7); EOS% 0.8 % (0.0-10.0); HEMATOCRIT 27.2 % (42.0-52.0); HEMOGLOBIN 8.2 g/dL (14.0-18.0); LYMPH# 1.13 X1000 (1.2-3.4); LYMPH% 23.2 % (20.5-51.1); MCH 27.2 PG (27-31); MCHC 30.1 g/dL (33-37); MCV 90.1 FL (81-99); MONO# 0.66 X1000 (0.11-0.59); MONO% 13.6 % (1.7-9.3); MPV 11.7 FL (7.4-10.4); NEUT# 3.03 X1000 (1.4-6.5); NEUT% 62.2 % (42.2-75.2); PLT 161 X1000 (130-400); RBC 3.02 XMIL (4.7-6.1); RDW 16.4 % (11.5-14.5); WBC 4.87 X1000 (4.8-10.8)
[2018-09-01 08:07] LABS: CALCIUM 8.4 mg/dL (8.8-10.2); CREATININE 2.5 mg/dL (0.7-1.2); POTASSIUM 4.1 mmol/L (3.5-5.1)
[2018-09-01] MEDS: LASIX IV SCH (08:14)
[2018-09-01] MEDS: ULTRAM PO PRN (08:15)
[2018-09-01] MEDS: ASPIRIN PO SCH (08:15)
[2018-09-01] MEDS: LEVAQUIN PO SCH (08:15)
[2018-09-01] MEDS: PLAVIX PO SCH (08:15)
[2018-09-01] MEDS: APRESOLINE PO SCH ×3 (08:15→17:20)
[2018-09-01] MEDS: LIPITOR PO SCH (08:15)
[2018-09-01] MEDS: COREG PO SCH ×2 (08:15→21:26)
[2018-09-01] MEDS: ISORDIL PO SCH ×3 (08:15→17:21)
[2018-09-01] MEDS: MIRALAX PO SCH ×2 (08:16→21:26)
[2018-09-01] MEDS ORDERED: AFRIN NASAL SPRAY NAS ONE (15:14)
--- NOTE | 2018-09-01 15:55 | PROGRESS NOTE ---
DATE: 09/01/2018 SUBJECTIVE: This patient is still having nosebleed, yesterday he did not have any bleeding but today he started having again, I think he started bleeding 3 or 4 days ago on and off. He was on Lovenox which has been on hold and will continue treating this patient with aspirin and Plavix which of course can be causing this problem. In the other hand this patient has an ischemic cardiomyopathy likely a NSTEMI and we need to continue with Plavix and aspirin as soon as we can, will request an evaluation by ENT to see if we can cauterize the vessel, the case has been discussed with the upper cutter machine nurse practitioner. OBJECTIVE: Vital Signs: Temperature 98.4 degrees, pulse 77, respiratory rate 16, blood pressure 112/57, oxygen saturation 97 on room air. HEENT: Head normocephalic. No trauma. PERRLA. There is blood coming out from his nose. Neck supple. No JVD. Central trachea. Chest: Clear to auscultation. Some crepitus at the bases with some rales as well mostly on the right side. Abdomen: Soft, nontender, nondistended. No hepatosplenomegaly. Extremities: 1 to 2+ lower extremity edema. No clubbing. No cyanosis. Neurological: The patient is alert and oriented x3. No focal deficits. LABORATORY: WBC 4.8, hemoglobin 8.2, hematocrit 27.2, platelets 161,000, sodium 136, potassium 4.1, chloride 98, bicarbonate 27, BUN 40, creatinine 2.5, glucose 181, calcium 8.4. ProBNP 20,844. ASSESSMENT AND PLAN: 1. Acute on chronic systolic heart failure likely due to medical noncompliance. Continue to monitor, Cardiology Department on board. Due to his continuous nosebleed I have placed on hold the aspirin and Plavix, I already put on hold the Lovenox, I have requested an evaluation by ENT. 2. Ischemic cardiomyopathy, likely known non-ST segment elevation myocardial infarction . Like I mentioned before I will stop the Plavix and aspirin, continue with statins, he is having a nosebleed that has been having this problem for a few days. 3. Nosebleed, he stopped bleeding yesterday and I think he has been bleeding for 3 or 4 days now, he started bleeding again today and the aspirin and Plavix has been held today, I held the Lovenox 2 or 3 days ago as well, the problem is that this patient has a ischemic cardiomyopathy and likely we need to put this patient back on antiplatelet medication. 4. Right pleural effusion status post thoracentesis on 08/28/2018, 1.5 L fluid has been removed likely transudate, I have placed this patient on lidocaine patch at the thoracentesis area due to pain. 5. Type 2 diabetes. Continue with same management. Sliding-scale insulin and pattern of blood sugar. 6. Hyperlipidemia. Continue with statins. 7. Hypertension. Continue with same management, stable. 8. Chronic kidney disease stage 3 to 4, continue to monitor. He is getting diuretics, BUN and creatinine looks a little bit better compared with yesterday. Will monitor the urine output. 9. Peripheral arterial disease, will continue to monitor, we are holding aspirin and Plavix for now due to nosebleed. 10. Deep vein thrombosis prophylaxis. I have placed this patient on SCDs. cc: Rigo Franco MD
[2018-09-01] MEDS: LIDODERM TOP SCH (16:23)
--- NOTE | 2018-09-01 18:57 | CARDIOLOGY PROGRESS NOTE ---
DATE: 09/01/2018 SUBJECTIVE: Mr. Stewart reports no issues with chest pain. His shortness of breath has improved. He is not having any orthopnea. His lower extremity edema has improved. He has developed a nose bleed which has been nagging going on for several hours today he received some Afrin nasal spray for. PHYSICAL: Afebrile. Heart rate 77, blood pressure 112/57. General: He is in no acute distress. Cardiovascular: He sounds to be in a regular rate and rhythm. He does not have any murmurs. He has 1+ bilateral lower extremity edema and warm, well perfused extremities. That has improved significantly since last I saw him on Saturday. His chest exam sounds clear. He has no increased work of breathing. Abdomen: Soft, nontender. HEENT: He has dried blood in his left naris along with multiple bloods splatters over his hospital gown. PERTINENT DATA: White count 4.8, hematocrit 27, platelet count is 161,000. His sodium is 136, potassium 4.1, BUN 40, creatinine 2.5. His proBNP is 20,000 which is down from greater than 35,000 at presentation. ASSESSMENT: Mr. Stewart is a 62-year-old gentleman with a history of systolic heart failure. PLAN: At this point from a cardiovascular standpoint, I believe he is on appropriate therapy. He is on Lasix 80 mg IV daily. In addition, his home medications have been restarted and titrated up. I believe a appropriate home discharge regimen would be what he currently is on in addition to up titrating his Lasix to 80 mg orally daily. I believe it would be reasonable to continue to hold aspirin and Plavix based on his recent nosebleed. He did have a PCI done 1 year ago and has exceeded his time requiring continuous Plavix so continued holding of the medication would be reasonable. We will check a BMP and a proBNP in the morning. If these are reasonable then I think it would be okay for him to be discharged and continue recovering at home with continued diuresis and hopefully he continues to adhere to his medication regimen. cc: Ld Ortiz MD
--- NOTE | 2018-09-01 19:07 | PROVIDER DOCUMENTATION ---
This chart was entered by Lis Velez Scribe, acting as scribe for Obey Grijalva MD. HPI-General Adult - General Chief Complaint: Edema Stated Complaint: EDEMA Time Seen by Provider: 08/25/18 15:54 Source: patient Allergies/Adverse Reactions: Patient Allergies Allergy/AdvReac Type Severity Reaction Status Date / Time No Known Allergies Allergy Verified 08/16/18 13:58 Home Medications: Home Medication List Medication Instructions Recorded Confirmed Last Taken Type Atorvastatin Calcium 80 mg PO HS 02/25/16 08/25/18 06/04/18 20:00 History Ticagrelor [Brilinta] 90 mg PO BID 02/25/16 08/25/18 06/05/18 07:00 History Hum Insulin NPH/Reg Insulin Hm 8 unit SQ HS 01/29/18 08/25/18 06/04/18 20:00 History [Novolin 70-30 100 Unit/ml Vial] Hydralazine [Apresoline] 100 mg PO TID 01/29/18 08/25/18 06/05/18 07:00 History Isosorbide Dinitrate [Isosorbide 60 mg PO DAILY 01/29/18 08/25/18 06/05/18 07: 00 History Dinitrate ER] Albuterol 2.5MG/Ipratrop 0.5MG 3 ml INH Q4H PRN PRN #20 neb 04/22/18 08/25/18 Unknown Rx [Duoneb (A & A)] Aspirin 81 mg PO DAILY chewtab 04/22/18 08/25/18 06/05/18 07:00 Rx Folic Acid 1 mg PO DAILY tablet 04/22/18 08/25/18 06/05/18 07:00 Rx Furosemide 40 mg PO DAILY #90 tab 04/22/18 08/25/18 06/05/18 07:00 Rx Polyethylene Glycol 3350 [Miralax] 17 gm PO BID powder, packet 04/22/1806/05/18 07:00 Rx Benzonatate [Tessalon] 100 mg PO TID@0900,1500,2100 #15 06/12/18 08/25/18 Unknown Rx cap Carvedilol 12.5 mg PO BID #60 tab 10/18/18 12/31/18 Unknown Rx - History of Present Illness -Gen Adult Nature of Presenting Problems: 62 y/o male presents to ED with bilateral lower extremity edema. Pt reports he has been having this problem since his cardiac arrest months ago. Pt states he was seen on 08/15/18 for swelling and it has only returned since then. Pt is alert and oriented. Location of Pain/Injury: reports: lower extremity Pain Radiation: reports: no radiation Quality of Pain: reports: fullness Severity: reports: moderate Onset/Duration: reports: unsure Timing: reports: still present Context/Activities at Onset: reports: none Modifying Factors: improves with: nothing Associated Symptoms: reports: other (bilateral lower extremity edema) Similar Symptoms Previously?: Yes Recently seen or treated by another doctor?: Yes (08/15/18 for same) Review of Systems - Adult - REVIEW OF SYSTEMS - ADULT Constitutional: denies: chills, fever Eyes: reports: no symptoms reported Ears, Nose, Mouth & Throat: reports: no symptoms reported Cardiovascular: denies: chest pain, palpitations Respiratory: denies: cough, shortness of breath Gastrointestinal: denies: abdominal pain, diarrhea, nausea, vomiting Genitourinary: reports: no symptoms reported Musculoskeletal: reports: other (bilateral lower extremity edema). denies: back pain, joint pain Integumentary: reports: no symptoms reported Neurological: denies: dizziness/vertigo, seizure Psychiatric: reports: no symptoms reported Endocrine: reports: no symptoms reported Hematologic/Lymphatic: reports: no symptoms reported Allergic/Immunologic: reports: no symptoms reported All Other Systems: Reviewed and Negative Past History - Adult - PAST MEDICAL HISTORY-ADULT Review of Records: reports: Old Records Reviewed, Nursing Assessment Review, Medications Reviewed Major Childhood Illnesses: reports: denies history Cardiovascular: reports: CAD, CHF, HTN, hyperlipidemia Respiratory: reports: denies history, COPD Gastrointestinal: reports: denies history Obstetrical/Gynecological: reports: denies history Genitourinary: reports: denies history Musculoskeletal: reports: denies history Neurological: reports: denies history, CVA Endocrine/Immune: reports: Diabetes Other Conditions: reports: denies history - PRIOR SURGERIES/PROCEDURES Surgical/Procedure History: reports: appendectomy, CABG, cholecystectomy, cardiac stent - IMMUNIZATION STATUS Childhood Immunizations: See Nurse Assessment Flu Vaccine: See Nurse Assessment - FAMILY HISTORY Family History: reviewed, not pertinent - SOCIAL HISTORY Smoking: quit greater than 1 year Substance Use: none presently/history of abuse, alcohol Alcohol Use Frequency: sober (former use) Living Situation: family Physical Exam-General - PHYSICAL EXAM-ADULT Initial Vital Signs Reviewed: Yes - CONSTITUTIONAL General Appearance: appears well, alert, no apparent distress - EYES Eyes: PERRL/EOMI, pink conjunctivae - HEAD, EARS, NOSE, MOUTH & THROAT HENMT: normocephalic/atraumatic, moist mucous membranes, normal ENT inspection - NECK Neck: non-tender, full range of motion - RESPIRATORY Respiratory: chest non-tender, lungs clear, normal breath sounds - CARDIOVASCULAR Cardiovascular: normal peripheral pulses, regular rate, rhythm - GASTROINTESTINAL (ABDOMEN) Abdominal Exam: normal bowel sounds, soft, tenderness (epigastric) - MUSCULOSKELETAL Back Exam: normal inspection, no CVA tenderness Extremity: normal range of motion, non-tender, normal gait, swelling (3 plus pitting edema of bilateral lower extremities up to mid thigh), other (fungus to soles of feet) - SKIN Integumentary: normal color, warm/dry - NEUROLOGIC Neurologic: grossly normal - PSYCHIATRIC Psych/Mental Status: normal mood/affect, normal thought content, normal thought process Progress - PLAN OF CARE/RESULTS Progress/Plan/Lab Results: Vital Signs - 8 hr 08/25/18 12:22 Temperature 97.3 F L Pulse Rate 89 Respiratory Rate 20 Blood Pressure 147/86 Laboratory Tests 08/25/18 08/25/18 16:37 17:08 WBC 4.75 L RBC 4.35 L Hgb 12.4 L Hct 39.6 L MCV 91.0 MCH 28.5 MCHC 31.3 L RDW Std Deviation 17.4 H Plt Count 203 MPV 11.1 H Immature Gran % (Auto) 0.0 Neut % (Auto) 63.2 Lymph % (Auto) 25.5 [place] % (Auto) 10.5 H Eos % (Auto) 0.6 Baso % (Auto) 0.2 Immature Gran # (Auto) 0.00 Neut # (Auto) 3.00 Lymph # (Auto) 1.21 [place] # (Auto) 0.50 Eos # (Auto) 0.03 Baso # (Auto) 0.01 Sodium 141 Potassium 4.3 Chloride 102 Carbon Dioxide 26 Anion Gap 13 BUN 31 H Creatinine 2.0 H Estimated GFR/1.73 m2 41 BUN/Creatinine Ratio 16 Glucose 212 H Calculated Osmolality 294 Calcium 8.6 L Total Bilirubin 0.55 AST 28 ALT 81 H Alkaline Phosphatase 153 H Total Protein 7.2 Albumin 2.7 L Globulin 4.5 Albumin/Globulin Ratio 0.6 Result Diagrams: 09/01/18 06:37 09/01/18 06:37 - XRAY 1 XRAY Study: Chest Impression: Abnormal (FINDINGS: The right pleural effusion has increased during the interval. It is now moderate to large in size. There is worsened atelectasis and/or infiltrate at the right lung base. No other new consolidations are identified. Cardiac silhouette is stable. IMPRESSION: Interval redevelopment of the right pleural effusion with adjacent atelectasis and/or infiltrate. Electronically signed by Matthew Loyd 08/25/2018 5:01 PM) - CONSULTS/PCP/HOSPITALIST Notification #1 *Consult/PCP/Hospitalist*: Dr Greene Time Discussed: 18:38 (cont with IV diuresis ) Consult Disposition: Admit Departure - Departure Date of Disposition Decision: 08/25/18 Time of Disposition Decision: 18:39 DIAGNOSIS: Lower extremity edema Disposition: ADMITTED INPATIENT 09 Certified Medical Emergency: Emergent Condition: Fair - Critical Care Note This patient required my direct & personal management of CC.: No Attestation - Physician/ EUGENIO Attestation Patient care was provided by Advanced Practice Provider:: No The physician spent face to face time with patient:: Yes Advanced Practice Provider documentation review:: Supervising physician onsite and consulted in the evaluation and care of this patient. The physician did have a face to face encounter with the patient. This chart was documented by the indicated scribe, (Lis Velez Scribe) and accurately reflects the services I performed and decisions made by me, Obey Grijalva MD, as attested by the provider's signature.
[2018-09-02 07:59] LABS: CREATININE 2.3 mg/dL (0.7-1.2); MAGNESIUM 1.7 mg/dL (1.5-2.7); POTASSIUM 4.2 mmol/L (3.5-5.1)
[2018-09-02] MEDS: HUMALOG SUBQ SCH ×4 (08:09→23:11)
[2018-09-02] MEDS: LIDODERM TOP SCH (08:53)
[2018-09-02] MEDS: ISORDIL PO SCH ×3 (08:54→17:31)
[2018-09-02] MEDS: COREG PO SCH ×2 (08:54→20:11)
[2018-09-02] MEDS: APRESOLINE PO SCH ×5 (08:54→17:33)
[2018-09-02] MEDS: LASIX IV SCH (08:54)
[2018-09-02] MEDS: LEVAQUIN PO SCH (08:54)
[2018-09-02] MEDS: LIPITOR PO SCH (08:54)
[2018-09-02] MEDS: MIRALAX PO SCH ×2 (08:55→20:11)
[2018-09-02] MEDS ORDERED: SAMSCA PO ONE (09:10)
--- NOTE | 2018-09-02 13:04 | PROGRESS NOTE ---
DATE: 09/02/2018 SUBJECTIVE: Today, this patient seems to be feeling a little bit better. He is not having any nasal bleed. Yesterday, the ENT doctor evaluated this patient and did a procedure at the bedside. The aspirin and Plavix has been stopped. Cardiology department following this patient closely. OBJECTIVE: Vital Signs: Temperature 98.1 degrees, pulse 84, respiratory rate 20, blood pressure 138/71, oxygen saturation 99 on room air. HEENT: Head normocephalic. No trauma. PERRLA. Neck: Supple. No JVD. No masses. Central trachea. Chest: Clear to auscultation. Some crepitus at the bases with some rales at the bases, mostly on the right side. Abdomen: Soft, nontender, nondistended. No hepatosplenomegaly. Extremities: One to 2+ lower extremity edema. No clubbing. No cyanosis. Neurological: The patient is alert and oriented x3. No focal deficits. LABORATORY: Sodium 133, potassium 4.2, chloride 97, bicarbonate 27, BUN 38, creatinine 2.3, glucose 149, calcium 9. BNP 24,148. ASSESSMENT AND PLAN: 1. Acute on chronic systolic heart failure likely due to medical noncompliance, continue to monitor. He is getting diuretics. Cardiology on board. 2. Ischemic cardiomyopathy likely due to an [id number] myocardial infarction. Aspirin and Plavix has been stopped because of the nosebleed. Cardiology department on board. We will follow their recommendations. 3. Nosebleed, as above. 4. Right pleural effusion status post thoracentesis on 08/28/2018, 1.5 L of fluid has been removed, and this is likely a transudate. I have placed this patient on lidocaine patch at the thoracentesis area due to pain. 5. Type 2 diabetes, controlled. 6. Hyperlipidemia. Continue with statins. 7. Hypertension, stable. 8. Chronic kidney disease, stage 3 to 4. Continue to monitor. BUN and creatinine has been stable for the past few days. 9. Peripheral arterial disease. Continue to monitor. We are holding aspirin and Plavix for now, due to nosebleed. 10. Deep venous thrombosis prophylaxis. Continue with sequential compression devices. cc: Rigo Franco MD
--- NOTE | 2018-09-02 13:12 | Extremity Venous Study ---
PROCEDURE NAME: Venous U/S Bilateral Legs - 08/30/2018 BILATERAL LOWER EXTREMITY VENOUS ULTRASOUND: TENTERER: Julienne. REQUESTING PHYSICIAN: Gavin. INDICATIONS: Edema and pain in the legs. COMPARISON: 07/31/2013. FINDINGS: The deep and superficial veins of the bilateral lower extremities are visualized along their course. All veins appeared compressible with forward flow and no evidence of intraluminal thrombus. SUMMARY: No deep or superficial venous thrombosis seen in the bilateral lower extremities. cc: MD Eldon Reinoso MD
[2018-09-02] MEDS: ULTRAM PO PRN (20:11)
[2018-09-03] MEDS: HUMALOG SUBQ SCH ×2 (06:35→11:33)
[2018-09-03 07:47] LABS: BASO# 0.01 X1000 (0.0-0.2); BASO% 0.1 % (0.0-0.8); EOS# 0.01 X1000 (0.0-0.7); EOS% 0.1 % (0.0-10.0); HEMATOCRIT 27.2 % (42.0-52.0); HEMOGLOBIN 8.3 g/dL (14.0-18.0); LYMPH# 0.78 X1000 (1.2-3.4); LYMPH% 10.9 % (20.5-51.1); MCH 27.5 PG (27-31); MCHC 30.5 g/dL (33-37); MCV 90.1 FL (81-99); MONO# 1.09 X1000 (0.11-0.59); MONO% 15.2 % (1.7-9.3); MPV 11.4 FL (7.4-10.4); NEUT# 5.28 X1000 (1.4-6.5); NEUT% 73.7 % (42.2-75.2); PLT 162 X1000 (130-400); RBC 3.02 XMIL (4.7-6.1); RDW 16.4 % (11.5-14.5); WBC 7.17 X1000 (4.8-10.8)
--- NOTE | 2018-09-03 07:54 | Diag Imaging Result Doc PS360 ---
EXAM: CHEST-PORTABLE INDICATION: dyspnea TECHNIQUE: One view COMPARISON: 08/30/2018 FINDINGS: There has been an increase in size of the small right pleural effusion since the previous study. There is increasing opacity at the right lower lung zone suggesting worsening atelectasis and/or infiltrate. There is minimal linear atelectasis at the left costophrenic angle. There is stable cardiomegaly. IMPRESSION: Increasing small right pleural effusion with worsening adjacent atelectasis and/or infiltrate. Electronically signed by Matthew Loyd 09/03/2018 7:51 AM
[2018-09-03 08:09] LABS: CALCIUM 9.1 mg/dL (8.8-10.2); CREATININE 2.2 mg/dL (0.7-1.2); POTASSIUM 4.4 mmol/L (3.5-5.1)
[2018-09-03] MEDS ORDERED: SAMSCA PO ONE (08:38)
[2018-09-03 08:43] VITALS: BP 129/76
[2018-09-03] MEDS ORDERED: LASIX IV SCH (09:00)
[2018-09-03] MEDS: MIRALAX PO SCH (09:26)
[2018-09-03] MEDS: LIDODERM TOP SCH (09:26)
[2018-09-03] MEDS: APRESOLINE PO SCH (09:27)
[2018-09-03] MEDS: COREG PO SCH (09:27)
[2018-09-03] MEDS: ISORDIL PO SCH (09:27)
[2018-09-03] MEDS: LIPITOR PO SCH (09:27)
[2018-09-03] MEDS: LEVAQUIN PO SCH (09:27)
--- NOTE | 2018-09-04 05:38 | DISCHARGE SUMMARY ---
ADMISSION DATE: 08/25/2018 DISCHARGE DATE: 09/03/2018 DISCHARGE DIAGNOSES: 1. Acute on chronic systolic heart failure. 2. Severe ischemic cardiomyopathy with elevated troponins and likely [id number] myocardial infarction. 3. Nosebleed. 4. Right pleural effusion, status post thoracentesis on 08/28/2018. 5. Type 2 diabetes. 6. Hyperlipidemia. 7. Hypertension. 8. Chronic kidney disease, stage 3 to 4. 9. Peripheral arterial disease. HOSPITAL COURSE: A 62-year-old male presented to [facility] emergency department on 08/25/2018. Patient admitted because of a swelling in the lower extremities. Unfortunately, Mr. Stewart is an extremely poor historian and very difficult to answer the questions that were asked. He states that he has been having swelling on and off since his cardiac arrest months ago, and has been progressively getting worse. States that he was on Lasix, but he thinks Dr. Quintanilla has stopped this medication 2 or 3 before of admission. Like I said, he is a poor historian. It does appear though, he is having orthopnea and unable to lie flat in bed. He was admitted because of CHF exacerbation with marked edema in the lower extremities, diabetes, known history of coronary artery disease, and he was hospitalized. We basically restarted his home medications. Cardiology Department was consulted, and the plan from Cardiology in this patient with medication noncompliance and not complaining of chest pain, and in an EKG that does not appear to have changed much since his previous hospitalization, abnormalities suggesting an increase of fluid overload, they arranged to institute his medications, limited in and out, continue with anticoagulation, aspirin, statin, and Coreg. Basically, the plan was to diurese this patient and consider for potential re-ischemia evaluation. Echocardiogram was echocardiogram was performed, and showed a severe left ventricular systolic function with an estimated ejection fraction of 15% to 20% range, also right ventricular pressure of 43 mmHg, severe left atrial enlargement, mild right ventricular enlargement, with moderate right ventricular systolic dysfunction. So we will continue with diuresis. We tried to maximize his medical management. X-ray showed a right pleural effusion, and a thoracentesis was performed on 08/28/2018, where around 1.5 L of fluid has been removed. Patient has been improving on a daily basis. His troponin and proBNP were elevated. Kidney function has been always at baseline. Re-evaluated multiple times by Cardiology Department, and he was placed on aspirin, Plavix, and also low dose of Lovenox. But at some point of his hospitalization, he started having severe nosebleeds to the point that we called the ENT to handle that at the bedside. All of the treatments including Plavix, aspirin, and Lovenox was held and since he did have a PCI done 1 year ago and has exceeded his time requiring continuous Plavix, we decided to stop it and continue with just aspirin upon discharge. His nosebleed improved after being treated by the ENT doctor. Today, this patient is feeling much better. He is able to lay flat completely without symptoms. He still has some lower extremity swelling, but compared with admission, is much better. So he will be discharged home and hopefully, he will be more compliant with the medications. He needs to follow up with Dr. Ortiz on 10/06/2018 at 10:30 a.m. Also follow with his primary care physician on 09/22/2018. This has been explained to the patient. This has been already set up. At the moment of discharge, this patient was tolerating, p.o. ambulating, and completely alert and oriented x3. PHYSICAL EXAM: Vital signs: Temperature 98.6 degrees, pulse 75, respiratory rate 14, blood pressure 129/76, oxygen saturation 99 on room air. HEENT: Head normocephalic. No trauma. PERRLA. Neck: Supple. No JVD. Central trachea. Chest: Some rales at the bases. Decreased breath sounds, also mostly on the right side. Cardiovascular: RRR. First sound is present. Abdomen: Soft, nontender, and nondistended. No hepatosplenomegaly. Extremities: 2+ lower extremity edema. No clubbing. No cyanosis. Neurological: The patient is alert and oriented x3. No focal deficits. LABORATORY: WBC 7.1, hemoglobin 8.3, hematocrit 27.2, platelets 162,000. Sodium 133, potassium 4.4, chloride 96, bicarbonate 26, BUN 36, creatinine 2.2, glucose 193, calcium 9.1. DISCHARGE MEDICATIONS: MiraLAX 17 grams p.o. b.i.d., hydralazine 100 mg p.o. t.i.d. Novolin 70/30 at 8 units subcutaneous at bedtime, folic acid 1 mg p.o. daily, carvedilol 12.5 mg p.o. b.i.d., atorvastatin 80 mg p.o. at bedtime, aspirin 81 mg p.o. daily, tramadol 50 mg p.o. b.i.d. as needed, isosorbide dinitrate 20 mg p.o. t.i.d., furosemide 80 mg p.o. daily, and DuoNeb 3 mL inhaler every 4 hours as needed for shortness of breath. TIME DISCHARGING THIS PATIENT: 45 minutes. cc: Rigo Franco MD
[2018-09-04] MEDS ORDERED: LASIX PO SCH (09:00)
== END 2018-09-03 14:17 | disposition home health service (06) | DRG 280 ==
LOC: ED 11:50 → 4N 21:20 → SUATTDRO 21:20 → 3S 08-26 09:28 → 3N 08-27 18:14
PROVIDERS: ATTEND Internal Medicine
CPT/HCPCS: 32421; 32555; 71010; 71020; 71045; 71046; 71250; 78451; 80048; 80053; 80061; 82550; 82948; 83036; 83615; 83735; 83880; 84155; 84157; 84443; 84484; 85025; 85610; 85730; 87070; 93005; 93010; 93306; 93970; 94761; 94799; 99285; A9270; A9500; J1650; J1815; J1940; XXXXX

== ENCOUNTER 2018-10-02 11:13 | Inpatient (IN) ==
[2018-10-02] MEDS ORDERED: LASIX IV ONE (13:06)
[2018-10-02] MEDS ORDERED: PROTONIX 80 MG in NS 80 ML IV ONE (13:06)
--- NOTE | 2018-10-02 13:09 | EKG Report ---
Test Performed on : 10/02/2018 11:57:16 AM Test Reason : shortness of breath Blood Pressure : / mmHG Vent. Rate : 080 BPM Atrial Rate : 080 BPM P-R Int : 122 ms QRS Dur : 108 ms QT Int : 420 ms P-R-T Axes : 002 -29 179 degrees QTc Int : 484 ms Sinus rhythm. with occasional premature ventricular complexes. Inferior infarct , age undetermined ST & T wave abnormality, consider lateral ischemia Abnormal ECG When compared with ECG of 26-AUG-2018 07:36, premature ventricular complexes. are now present Inferior infarct is now present T wave inversion no longer evident in Inferior leads T wave inversion more evident in Lateral leads Unconfirmed Result
--- NOTE | 2018-10-02 13:32 | Diag Imaging Result Doc PS360 ---
EXAM: CHEST-PORTABLE INDICATION: sob TECHNIQUE: One view COMPARISON: 09/03/2018 FINDINGS: The right basilar pleural effusion seen on the previous study is again identified. It appears to have increased in size. It is at least moderate in size on the current study. There is adjacent atelectasis and/or infiltrate at the right lung base similar to the previous study. The left lung appears to be clear. There is stable cardiomegaly. IMPRESSION: Left basilar pleural effusion with adjacent atelectasis and/or infiltrate that appears to have increased during the interval. Electronically signed by Matthew Loyd 10/02/2018 1:29 PM
[2018-10-02] MEDS ORDERED: PROTONIX 80 MG in NS 80 ML IV SCH (14:00)
[2018-10-02 14:49] LABS: BASO# 0.01 X1000 (0.0-0.2); BASO% 0.2 % (0.0-0.8); EOS# 0.01 X1000 (0.0-0.7); EOS% 0.2 % (0.0-10.0); HEMATOCRIT 37.4 % (42.0-52.0); HEMOGLOBIN 11.6 g/dL (14.0-18.0); LYMPH# 1.18 X1000 (1.2-3.4); LYMPH% 25.6 % (20.5-51.1); MCH 27.2 PG (27-31); MCV 87.6 FL (81-99); MONO# 0.44 X1000 (0.11-0.59); MONO% 9.5 % (1.7-9.3); MPV 11.6 FL (7.4-10.4); NEUT# 2.97 X1000 (1.4-6.5); NEUT% 64.5 % (42.2-75.2); PLT 236 X1000 (130-400); RBC 4.27 XMIL (4.7-6.1); RDW 19.5 % (11.5-14.5); WBC 4.61 X1000 (4.8-10.8)
[2018-10-02 14:54] LABS: INR 1.1; PROTIME 15.1 Seconds (11.0-16.0)
[2018-10-02 14:56] LABS: PTT 53.6 Seconds (22.3-41.8)
[2018-10-02 15:09] LABS: ALB/GLOB RATIO 0.7; ALBUMIN 2.9 g/dL (3.5-5.0); CREATININE 2.1 mg/dL (0.7-1.2); POTASSIUM 4.8 mmol/L (3.5-5.1); TOTAL BILIRUBIN 0.56 mg/dL (0.20-1.00); TOTAL PROTEIN 6.9 g/dL (6.3-8.3)
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
--- NOTE | 2018-10-02 18:46 | HISTORY AND PHYSICAL ---
ADDENDUM: This is an addendum to the history and physical dictated by the nurse practitioner. In brief Mr. Stewart is a 62-year-old man with a previous history of coronary artery disease, myocardial infarction, congestive heart failure with reduced EF, medical non- compliance, multiple admissions for acute heart failure exacerbation, comes in with complaints of bilateral lower extremity swelling and inability to walk. In the emergency room he was found to have an SpO2 of 86%. However, at the time of my evaluation, he was breathing more than 90% SpO2 on 2 L and was not in any acute distress. On physical exam S1, S2 was normal without murmur, rub, or gallop. He did have decreased air entry in the right lower lobe and bilateral lower extremity swelling, extending up to bilateral thighs. My plan is to start him on intravenous Lasix. Continue his home aspirin, statin , carvedilol, and hydralazine. He had an extensive workup done recently including extremity venous study, thoracenteses, and myocardial perfusion with echocardiogram, in which it was found that he had severe LV dysfunction with an estimated ejection fraction of 15 to 20%. So, I will admit him in the telemetry unit and start him on IV diuretics. cc: Jaime Greene MD MTDKarishma
--- NOTE | 2018-10-02 19:11 | HISTORY AND PHYSICAL ---
FUN HOUSE ATTENDANT: Dr. Ld Ortiz. CHIEF COMPLAINT: Shortness of breath and worsening edema. HISTORY OF PRESENT ILLNESS: Mr. Stewart is a 62-year-old male who is well known to our service. He has a history of severe ischemic cardiomyopathy, systolic congestive heart failure, ckd and recurrent pleural effusion. He also has a history of polysubstance dependence and medical noncompliance. He presents to our facility today with complaints of progressive dyspnea and lower extremity edema since his last admission, roughly one month ago. He denies any chest pain, fever or chills or cough with mucopurulent sputum production. He reports compliance with his medications. His cardiac workup last month revealed an EF of 20%, stress test was negative for active ischemia (large, fixed defect was noted). He also had a thoracentesis done which was largely transudative. Today, when he got to the ER, his chest x-ray showed right basilar pleural effusion with adjacent atelectasis, which appears to have increased since the last admission. Lab work is unremarkable for anything acute and his vitals are stable. Will admit him for further treatment and evaluation. PAST MEDICAL HISTORY: 1. Severe ischemic cardiomyopathy / systolic CHF with ejection fraction of 20%. 3. Severe coronary artery disease. 4. Hypertension. 5. Hyperlipidemia. 6. Type 2 diabetes. 7. Medical noncompliance. 8. Polysubstance dependence with a history of positive cocaine drug screens on multiple occasions. PAST SURGICAL HISTORY: He has had right foot surgery, coronary stenting on multiple occasions, thoracentesis. SOCIAL HISTORY: He smokes a cigarette per day, per his report. He was very avoidant when talking about alcohol and drugs. FAMILY HISTORY: Significant for CAD. ALLERGIES: No known drug allergies. HOME MEDICATIONS: Have not been reconciled at this time, but a list of discharge medications from last medication shows tramadol 50 mg twice a day, Isordil 20 mg three times a day, atorvastatin 80 mg at bedtime, hydralazine 100 mg p.o. three times a day, insulin Novolin 70/30 8 units subcutaneously at bedtime, folic acid 1 mg daily, polyethylene glycol 17 grams twice a day, aspirin 81 mg daily, Albuterol inhaled as needed, carvedilol 12.5 mg twice daily , Lasix 80 mg daily. REVIEW OF SYSTEMS: A 14-point review of systems obtained and found to be negative with the exception of the HPI. PHYSICAL EXAMINATION: VITAL SIGNS: Blood pressure is 137/84, heart rate 82, respiratory rate 21, O2 saturation 86% on room air, and temperature is 97.1. GENERAL: This is a well developed, well nourished, male lying in hospital bed in no acute distress. NEUROLOGIC: He is awake, alert, and oriented. Follows commands without focal deficits. HEENT: The head is atraumatic and normocephalic. His pupils are equal, round, and reactive to light. Oral mucosa is moist. NECK: Trachea is midline. There is no JVD. CHEST: Diminished over the right lung base. CV: Regular rate. S1, S2 is noted. GI: Soft and nondistended. Nontender. Bowel sounds are positive. EXTREMITIES: 2+ pitting edema with diminished pulses bilaterally. IMAGING: Chest x-ray shows large right pleural effusion and stable cardiomegaly. EKG shows sinus rhythm with PVCs and diffuse nonspecific ST and T changes. LABORATORY DATA: WBC 4.61, hemoglobin 11.6, hematocrit 37.4, platelet count 236 ,000. INR 1.1. Sodium 138, potassium 4.8, chloride 102, CO2 21, anion gap 15, BUN 36, creatinine 2.1, glucose 181, calcium 9, AST 17, ALT 21, alkaline phosphatase 165, proBNP greater than 35,000. Albumin 2.9. Alcohol level 0. ASSESSMENT AND PLAN: 1. Acute on chronic systolic heart failure/ CAD / ICMP: We will admit the patient with intravenous diuresis. Trend enzymes. Continue all of his home medications. Follow strict ins and outs, daily weights. We will continue ASA, beta surya and statin, monitor telemetry. 2. Significant Pleural Effusion: Likely transudative due to CHF, will try to diurese him, if that is insufficient, he may need repeat thoracentesis. 3. Chronic kidney disease, stage 3 to 4: Baseline creatinine noted. Will continue to monitor. 4. Diabetes mellitus: Add PBS, sliding scale insulin. 5. Anemia: Will make sure his iron studies are up to date, treat accordingly. 6. Polysubstance dependence/medical noncompliance: We have advised the patient the importance of continuing with his medical treatment as prescribed by his grant writer, taking his medications, avoiding excessive sodium and fluids. We have also explained to him the extensive risk with alcohol, tobacco, and drug use. Deep venous thrombosis prophylaxis with sequential compressive devices. Apparently the patient had a significant nosebleed last month. Further recommendations to follow. Dictated by CLAY Hernandez for Jaime Greene MD cc: CLAY Hernandez MD I agree with most of the components of history, physical, assessment and plan. A separate addendum has been dictated. MTDKarishma
[2018-10-02] MEDS: LIPITOR PO SCH (20:50)
[2018-10-02] MEDS: COREG PO SCH (20:51)
[2018-10-02] MEDS: APRESOLINE PO SCH (20:51)
[2018-10-02 22:33] LABS: URINE SOURCE CLEAN CATCH
[2018-10-02 22:49] LABS: UR AMPHETAMINES QUAL NONE DETECTED (NONE DETECT); UR BARBITUATES QUAL NONE DETECTED (NONE DETECT); UR BENZODIAZEPIN QUAL NONE DETECTED (NONE DETECT); UR CANNABINOIDS QUAL NONE DETECTED (NONE DETECT); UR COCAINE QUAL PRESUMPTIVE POSITIVE (NONE DETECT); UR METHADONE QUAL NONE DETECTED (NONE DETECT); UR OPIATES QUAL NONE DETECTED (NONE DETECT); UR OXYCODONE QUAL NONE DETECTED (NONE DETECT); UR PCP QUAL NONE DETECTED (NONE DETECT)
[2018-10-02 23:13] LABS: BILIRUBIN URINE NEGATIVE (NEGATIVE); BLOOD URINE SMALL (NEGATIVE); COLOR YELLOW; GLUCOSE URINE NEGATIVE (NEGATIVE); KETONE URINE NEGATIVE (NEGATIVE); LEUKOCYTES URINE NEGATIVE (NEGATIVE); NITRITE URINE NEGATIVE (NEGATIVE); PROTEIN URINE 200 mg/dL (NEGATIVE); SP GRAVITY URINE 1.002; TURBIDITY URINE CLEAR (CLEAR); UR EPITHELIAL CELLS <10 /HPF (<10); URINE BACTERIA NEGATIVE /HPF; URINE RBC <10 /HPF (<10); URINE WBC <10 /HPF (<10); UROBILINOGEN URINE NORMAL (NORMAL)
[2018-10-03] MEDS: PRILOSEC PO SCH (06:02)
[2018-10-03 06:05] LABS: HEMATOCRIT 34.1 % (42.0-52.0); HEMOGLOBIN 10.4 g/dL (14.0-18.0); MCHC 30.5 g/dL (33-37); MCV 88.6 FL (81-99); MPV 11.3 FL (7.4-10.4); RBC 3.85 XMIL (4.7-6.1); RDW 19.5 % (11.5-14.5); WBC 4.71 X1000 (4.8-10.8)
[2018-10-03 06:39] LABS: CALCIUM 8.5 mg/dL (8.8-10.2); CREATININE 2.3 mg/dL (0.7-1.2); MAGNESIUM 1.9 mg/dL (1.5-2.7); POTASSIUM 4.5 mmol/L (3.5-5.1)
[2018-10-03] MEDS ORDERED: LASIX IV SCH (09:00)
[2018-10-03] MEDS: LASIX IV SCH ×2 (09:24→21:23)
[2018-10-03] MEDS: NICODERM PATCH TD SCH (09:25)
[2018-10-03] MEDS: APRESOLINE PO SCH ×3 (09:25→21:24)
[2018-10-03] MEDS: COREG PO SCH ×2 (09:25→21:24)
[2018-10-03] MEDS: ASPIRIN PO SCH (09:25)
--- NOTE | 2018-10-03 14:08 | PROGRESS NOTE ---
DATE: 10/03/2018 INTERVAL HISTORY: No acute overnight events. He is unclear if his urine was collected appropriately or not, but is only charted to be 600 mL. His urine toxicology was positive for cocaine. SUBJECTIVE: The patient continues to have bilateral lower extremity swelling. He has not been able to walk because of the extreme swelling of his lower extremities. We discussed about stopping cocaine use. I answered all of his questions currently. PHYSICAL EXAMINATION: General: Does not appear in any acute distress. Oral cavity is moist. Air entry bilaterally equal with decreased air entry in right infrascapular region. No wheeze or rhonchi. No crackles. Vitals: Detect temperature of 98.3 degrees, pulse 74, blood pressure 120/88, saturating 98% on room air. Cardiovascular: S1, S2 normal. No rub or gallop or murmur. Abdomen: Soft, nontender, bilateral lower extremity edema extending up to distal thighs. LABORATORIES: Suggestive of acceptable range of hemoglobin, hematocrit, and platelet count. Normal electrolytes. Chronic kidney disease stage 3. Blood sugars have been in acceptable range largely. His troponins were showing that trend. MICROBIOLOGY: Stool occult blood test was negative. Influenza screen on admission was negative. ASSESSMENT AND PLAN: 1. Acute on chronic congestive systolic heart failure, because of ischemic cardiomyopathy and history of coronary artery disease with ejection fraction of only 15 to 20 percent based on echo in August 2018. Continue intravenous Lasix at 60 mg IV b.i.d. dosing and adjust dose according to urine output and kidney function. Continue home aspirin, high-dose statin, carvedilol and hydralazine. 2. History of essential hypertension. Continue carvedilol, hydralazine. Increase hydralazine dose and add isosorbide as tolerated. 3. History of chronic constipation. Continue MiraLAX, home medication. 4. Substance use disorder. Cocaine use disorder. Extensively counseled him about adverse effect of cocaine on his cardiovascular health and health in general and I answered all of his questions. I encouraged him to quit and also seek medical attention outpatient to help him quit. 5. Normocytic anemia. Fecal occult blood test negative. I will just monitor it. 6. History of insulin-dependent diabetes mellitus type 2. Continue current sliding scale insulin dose. 7. Chronic kidney disease stage 3, aware. We will monitor with frequent CBC, BMP. 8. Disposition. Patient remains inside the hospital for intravenous diuresis. I tried to reach out to his mother who is a surrogate decision maker, next of kin. However, the contact information does not seem to be correct. I have informed the nursing team about getting the correct contact information. cc: Jaime Greene MD
[2018-10-03] MEDS: MIRALAX PO SCH ×2 (15:10→21:23)
[2018-10-03] MEDS: LIPITOR PO SCH (21:23)
[2018-10-04] MEDS: PRILOSEC PO SCH (06:23)
[2018-10-04 06:59] LABS: CALCIUM 8.5 mg/dL (8.8-10.2); MAGNESIUM 1.8 mg/dL (1.5-2.7); POTASSIUM 4.3 mmol/L (3.5-5.1)
[2018-10-04 07:03] LABS: HEMATOCRIT 31.6 % (42.0-52.0); HEMOGLOBIN 9.5 g/dL (14.0-18.0); MCH 27.1 PG (27-31); MCHC 30.1 g/dL (33-37); MCV 90.3 FL (81-99); MPV 11.3 FL (7.4-10.4); RBC 3.5 XMIL (4.7-6.1); RDW 19.8 % (11.5-14.5); WBC 4.18 X1000 (4.8-10.8)
[2018-10-04] MEDS: LASIX IV SCH ×3 (08:27→16:48)
[2018-10-04] MEDS: COREG PO SCH ×2 (08:27→21:14)
[2018-10-04] MEDS: APRESOLINE PO SCH ×3 (08:28→21:14)
[2018-10-04] MEDS: FOLIC ACID PO SCH (08:28)
[2018-10-04] MEDS: ASPIRIN PO SCH (08:28)
[2018-10-04] MEDS: NICODERM PATCH TD SCH (08:28)
[2018-10-04] MEDS: MIRALAX PO SCH ×2 (08:29→21:14)
--- NOTE | 2018-10-04 09:38 | Diag Imaging Result Doc PS360 ---
CHEST-PORTABLE - 10/04/2018 INDICATION: Follow up right pleural effusion COMPARISON: 10/02/2018 FINDINGS: There is worsening infiltrate or atelectasis in the right upper lobe. Stable moderate right basilar pleural effusion with adjacent infiltrate. Stable cardiomegaly and pulmonary vascular congestion. Heart size remains enlarged. IMPRESSION: Worsening atelectasis or infiltrate in the right upper lobe. Electronically signed by Power Peralta 10/04/2018 9:36 AM
--- NOTE | 2018-10-04 13:17 | PROGRESS NOTE ---
DATE: 10/04/2018 INTERVAL HISTORY: No overnight events. SUBJECTIVE: Patient is feeling the same. Has been complaining of bilateral lower extremity pain. I discussed with him that I am ordering physical therapy evaluation and he should start moving around. I also discussed with him about lung x-ray and lung exam findings. I answered all of his questions. He is denying chest pain. He is denying undue shortness of breath, except mild shortness of breath. However, he has been pretty much bed ridden. Denies nausea, vomiting, abdominal pain. Continues to have lower extremity edema. OBJECTIVE: Vital Signs: Temperature 98, pulse 69, respiratory rate 16, blood pressure of 130/78, saturating 90 to 99 percent on room air. General: On physical examination, he does not appear in any acute distress. HEENT: Oral cavity is moist. Lungs: Decreased air entry in right infrascapular region which is more decreased than previous examination. No wheeze or rhonchi. Adequate air entry on left hemithorax. Abdomen: Soft, right upper quadrant tenderness, likely because of congestive hepatitis and congestive hepatomegaly. Bowel sounds active. Extremities: Bilateral lower extremities edema upto knees. Neck: He has marked jugular venous distention. Skin: He has edema extending up to the thighs. LABS: Influenza screen has been negative. Stool occult blood test has been negative. Imaging: Chest x-ray read is pending. On my evaluation, he has worsening edema and right hemithorax as compared to previous. He has persistent right sided pleural effusion which appears worse to me. ASSESSMENT AND PLAN: 1. Acute on chronic congestive systolic heart failure, because of ischemic cardiomyopathy and history of coronary artery disease. Has ejection fraction of about 15 to 20 percent in August 2018. Continue intravenous Lasix 60 mg IV b.i.d. with close monitoring of input, output, kidney function. Continue home aspirin, high-dose statin, carvedilol and hydralazine. 2. History of essential hypertension. Continue carvedilol, hydralazine and add isosorbide as tolerated. 3. Right-sided pleural effusion with worsening edema, likely because of his systolic heart failure. He has had multiple thoracenteses. The most recent one in August 2018 was suggestive of transudative effusion. He is not in any respiratory compromise. I will keep a close eye over it and accordingly we will consult Pulmonology about need for repeat thoracentesis versus need for surgical procedure in the future. 4. Continue MiraLAX for chronic constipation, sliding scale insulin for history of insulin- dependent diabetes mellitus. 5. History of anemia of chronic disease. Continue patient on folic acid. 6. Polysubstance use disorder. Continue nicotine patch. I counseled patient against use of any substances. 7. Chronic kidney disease stage 3, aware. Monitor CBC, BMP frequently. 8. Disposition: Patient remains inside the hospital for management of his heart failure. Plan of care were discussed with him. All of his questions have been answered. I had updated nursing team about updating his mother's contact information and chart. cc: Jaime Greene MD MTDD
[2018-10-04] MEDS: HUMALOG SUBQ SCH ×3 (17:00→22:52)
[2018-10-04] MEDS: LIPITOR PO SCH (21:14)
[2018-10-05] MEDS: PRILOSEC PO SCH (06:25)
[2018-10-05 06:52] LABS: HEMATOCRIT 33.9 % (42.0-52.0); HEMOGLOBIN 10.3 g/dL (14.0-18.0); MCH 27.1 PG (27-31); MCHC 30.4 g/dL (33-37); MCV 89.2 FL (81-99); MPV 11.8 FL (7.4-10.4); RBC 3.8 XMIL (4.7-6.1); RDW 19.9 % (11.5-14.5); WBC 4.02 X1000 (4.8-10.8)
[2018-10-05 07:13] LABS: CALCIUM 8.1 mg/dL (8.8-10.2); CREATININE 2.1 mg/dL (0.7-1.2); MAGNESIUM 1.8 mg/dL (1.5-2.7); POTASSIUM 4.4 mmol/L (3.5-5.1)
--- NOTE | 2018-10-05 07:59 | Diag Imaging Result Doc PS360 ---
CHEST-1 VIEW - 10/05/2018 INDICATION: Follow up right pleural effusion COMPARISON: 10/04/2018 FINDINGS: There has been improvement in the right upper lobe opacification probably atelectasis. There has been decrease in the right basilar pleural effusion with improved aeration of the lung bases. The left lung remains clear. Heart size and pulmonary vascularity remains somewhat enlarged. IMPRESSION: Significantly improved aeration of the right lung with decrease in the right pleural effusion. Electronically signed by Power Peralta 10/05/2018 7:57 AM
[2018-10-05] MEDS: HUMALOG SUBQ SCH ×4 (08:16→22:08)
[2018-10-05] MEDS: COREG PO SCH ×2 (09:56→22:08)
[2018-10-05] MEDS: FOLIC ACID PO SCH (09:56)
[2018-10-05] MEDS: ASPIRIN PO SCH (09:56)
[2018-10-05] MEDS: LASIX IV SCH ×3 (09:56→16:41)
[2018-10-05] MEDS: APRESOLINE PO SCH ×3 (09:56→22:08)
[2018-10-05] MEDS: MIRALAX PO SCH ×2 (09:57→22:09)
[2018-10-05] MEDS: NICODERM PATCH TD SCH (09:57)
--- NOTE | 2018-10-05 13:31 | PROGRESS NOTE ---
DATE: 10/05/2018 INTERVAL HISTORY: Yesterday night, the patient had fallen down when he went to the bathroom at around midnight to have a bowel movement. When he was trying to get up, his legs gave out. He did not lose consciousness. Did not hit his head. He was helped by the tech to come back to the bed. I strongly advise him that he should not come out of bed without anyone's help. I discussed with him about better chest x-ray finding. I discussed with her about stopping polysubstance. The patient's sister is at bedside. Plan of care was discussed with her. VITALS: Currently, vitals reveal temperature 98.1 degrees, pulse 67 per minute , blood pressure 135/79, saturating 99% on room air. PHYSICAL EXAMINATION: General: Does not appear in any acute distress. HEENT: Oral cavity is moist. Lungs: Decreased air entry in right infrascapular region, better than yesterday. No wheeze or rhonchi. Adequate air entry. Left hemithorax. Heart: S1, S2 normal. No murmur, rub, or gallop. Abdomen: Soft, nontender. Bowel sounds are active. Extremities: Bilateral lower extremity edema extending up to knees. He has marked jugular venous distention. He has edema extending up to the thighs. Input and output suggests -1.7 L yesterday, -1.3 L today so far. LABS: Suggestive of acceptable range of hemoglobin, hematocrit, and platelet. Normal electrolytes. Chronic kidney disease stage III. Blood sugars in acceptable range. MICROBIOLOGY: No new microbiological data. IMAGING: Suggests improved aeration of the right lung as compared to yesterday. ASSESSMENT AND PLAN: 1. Acute on chronic congestive systolic heart failure because of ischemic cardiomyopathy and history of coronary artery disease with ejection fraction of 20% in August 2018. Continue intravenous Lasix at increased dose of 60 mg intravenous three times a day with close monitoring of input and output and kidney function. Continue home aspirin, high-dose statin, carvedilol, hydralazine. 2. History of essential hypertension. Continue carvedilol, hydralazine and isosorbide will be added as tolerated. 3. Recurrent Right-sided pleural effusion. Previous pleural fluid studies in August had suggested transudative effusion. This is likely because of acute systolic congestive heart failure exacerbation. Continue intravenous Lasix. He does not have any respiratory compromise. Depending on his course, I might consider thoracenteses in future or will consider consulting Pulmonology for definitive surgical procedure considering this is recurrent. 4. Chronic constipation. Continue MiraLAX and continue sliding scale insulin for insulin- dependent diabetes mellitus. 5. Continue folic acid for history of anemia of chronic disease. Continue nicotine patch for tobacco abuse. 6. Cocaine abuse and Polysubstance use disorder. I counseled patient against that. 7. Chronic kidney disease stage III, aware. 8. Disposition: I will have physical therapy evaluate the patient. The patient remains inside the hospital for need for intravenous diuresis. Plan of care was discussed with him and his sister at bedside. All of their questions have been answered adequately. cc: Jaime Greene MD MTDD
[2018-10-05] MEDS: LIPITOR PO SCH (22:08)
[2018-10-06] MEDS: PRILOSEC PO SCH ×2 (05:36→07:29)
[2018-10-06 06:39] LABS: HEMATOCRIT 32.2 % (42.0-52.0); HEMOGLOBIN 9.7 g/dL (14.0-18.0); MCH 27.4 PG (27-31); MCHC 30.1 g/dL (33-37); MPV 11.5 FL (7.4-10.4); RBC 3.54 XMIL (4.7-6.1); WBC 5.03 X1000 (4.8-10.8)
[2018-10-06 07:01] LABS: CALCIUM 8.9 mg/dL (8.8-10.2); CREATININE 2.6 mg/dL (0.7-1.2); MAGNESIUM 1.7 mg/dL (1.5-2.7); POTASSIUM 4.1 mmol/L (3.5-5.1)
[2018-10-06] MEDS: HUMALOG SUBQ SCH ×4 (07:29→22:34)
[2018-10-06] MEDS: ASPIRIN PO SCH (09:39)
[2018-10-06] MEDS: MIRALAX PO SCH ×2 (09:39→22:33)
[2018-10-06] MEDS: APRESOLINE PO SCH ×3 (09:39→22:33)
[2018-10-06] MEDS: FOLIC ACID PO SCH (09:39)
[2018-10-06] MEDS: LASIX IV SCH ×3 (09:39→17:42)
[2018-10-06] MEDS: COREG PO SCH ×2 (09:39→22:33)
[2018-10-06] MEDS: NICODERM PATCH TD SCH (09:40)
--- NOTE | 2018-10-06 16:56 | PROGRESS NOTE ---
DATE: 10/06/2018 INTERVAL HISTORY: No acute overnight events. SUBJECTIVE: The patient is a poor historian. However, he denies chest pain. His shortness of breath is not present at rest. He is complaining of left-sided foot pain, which has been ongoing for a few days, and he thinks that he is not able to put his foot down because of that. We discussed about his kidney function and need of more Lasix and more diuresis. I answered all of his questions. OBJECTIVE: Vital Signs: Temperature 97.9 degrees. Pulse is reported to be 41. However, his pulse has mostly been in the 70s to 60s. Blood pressure 137/83. Saturating 95% on room air. General: He does not appear in any acute distress. Input and output suggests he was -700 mL yesterday. HEENT: Oral cavity is moist. Neck: He has jugular venous distention. Lungs: Decreased air entry in the right infrascapular region. No wheeze or rhonchi. Adequate air entry on the left hemithorax. Cardiovascular: S1, S2 normal. No murmur or gallop. Abdomen: Soft, nontender. Extremities: Bilateral lower extremity edema extending up to the thighs. LABORATORY DATA: Labs suggestive of stable hemoglobin, hematocrit, and platelet count. Normal electrolytes. Elevated BUN and creatinine. Hyperglycemia in acceptable range. No microbiological data. DIAGNOSTIC STUDIES: No new imaging. ASSESSMENT AND PLAN: 1. Acute on chronic congestive systolic heart failure because of ischemic cardiomyopathy and history of coronary artery disease with ejection fraction of 20% in August 2018. Cause of current exacerbation is the patient's noncompliance with medication and continued use of recreational substances. Continue intravenous Lasix and add metolazone. Continue close input and output monitoring and kidney function. Continue home aspirin, high-dose statin, carvedilol, and hydralazine. Follow up proBNP, daily weight, and chest x-ray 2. Essential hypertension. Continue carvedilol and hydralazine. Add isosorbide as tolerated. 3. Recurrent right-sided pleural effusion. Previous pleural fluid studies in August had suggested transudative effusion, and cytology in March 2018 was negative for malignancy. This is likely related to acute systolic congestive heart failure exacerbation. Follow up with serial chest x-ray and depending on his course, he may need future thoracenteses. Currently stable. 4. Chronic constipation. Continue MiraLAX. 5. Continue sliding scale insulin for insulin-dependent diabetes mellitus. 6. Continue folic acid for anemia of chronic disease. 7. Continue nicotine patch for tobacco abuse. 8. Chronic kidney disease stage 3. Follow up with frequent BMP. 9. Cocaine use and polysubstance use disorder. I had counseled the patient against use of these substances. 10. Left foot pain. I will get an x-ray of his left foot tomorrow. cc: Jaime Greene MD
[2018-10-06] MEDS: LIPITOR PO SCH (22:33)
[2018-10-07] MEDS: PRILOSEC PO SCH (06:22)
[2018-10-07] MEDS: HUMALOG SUBQ SCH ×4 (06:48→21:39)
[2018-10-07 07:45] LABS: CALCIUM 7.9 mg/dL (8.8-10.2); CREATININE 2.7 mg/dL (0.7-1.2)
--- NOTE | 2018-10-07 07:50 | Diag Imaging Result Doc PS360 ---
FOOT 2 VIEWS LEFT - 10/07/2018 INDICATION: Rule out metatarsal fracture. TECHNIQUE: COMPARISON: 03/09/2015 FINDINGS: There is a new bony erosion at the distal tip of the great toe, involving the tuft of the distal phalanx. No metatarsal fractures. There is some pedal edema. There is mild vascular disease.. IMPRESSION: New bony erosion at the tip of the great toe consistent with chronic trauma, avascular necrosis, or osteomyelitis. Correlate clinically. Electronically signed by Power Peralta 10/07/2018 7:48 AM
--- NOTE | 2018-10-07 07:53 | Diag Imaging Result Doc PS360 ---
CHEST-1 VIEW - 10/07/2018 INDICATION: Follow up right pleural effusion COMPARISON: 10/05/2018 FINDINGS: There is little change in the moderate right basilar pleural effusion. Stable cardiomegaly. Stable pulmonary vascular congestion. There is some worsening infiltrate or atelectasis in the right upper lobe. IMPRESSION: Worsening infiltrate or atelectasis in the right upper lobe. Electronically signed by Power Peralta 10/07/2018 7:51 AM
[2018-10-07] MEDS ORDERED: ZAROXOLYN PO ONE (08:26)
[2018-10-07] MEDS: MIRALAX PO SCH ×2 (09:32→21:39)
[2018-10-07] MEDS: FOLIC ACID PO SCH (09:32)
[2018-10-07] MEDS: NICODERM PATCH TD SCH (09:32)
[2018-10-07] MEDS: LASIX IV SCH ×3 (09:32→16:56)
[2018-10-07] MEDS: ASPIRIN PO SCH (09:32)
[2018-10-07] MEDS: APRESOLINE PO SCH ×3 (09:32→21:38)
[2018-10-07] MEDS: COREG PO SCH ×2 (09:32→21:38)
[2018-10-07] MEDS: LIPITOR PO SCH (21:38)
[2018-10-08 06:28] LABS: EOS# 0.02 X1000 (0.0-0.7); EOS% 0.4 % (0.0-10.0); HEMATOCRIT 33.8 % (42.0-52.0); HEMOGLOBIN 10.1 g/dL (14.0-18.0); LYMPH# 1.31 X1000 (1.2-3.4); LYMPH% 23.1 % (20.5-51.1); MCH 26.9 PG (27-31); MCHC 29.9 g/dL (33-37); MCV 89.9 FL (81-99); MONO# 0.66 X1000 (0.11-0.59); MONO% 11.6 % (1.7-9.3); MPV 11.6 FL (7.4-10.4); NEUT# 3.68 X1000 (1.4-6.5); NEUT% 64.9 % (42.2-75.2); PLT 139 X1000 (130-400); RBC 3.76 XMIL (4.7-6.1); RDW 19.9 % (11.5-14.5); WBC 5.67 X1000 (4.8-10.8)
[2018-10-08] MEDS: PRILOSEC PO SCH (06:34)
[2018-10-08] MEDS: HUMALOG SUBQ SCH ×4 (06:34→22:30)
[2018-10-08] MEDS: FOLIC ACID PO SCH (08:46)
[2018-10-08] MEDS: APRESOLINE PO SCH ×3 (08:46→22:27)
[2018-10-08] MEDS: COREG PO SCH ×2 (08:46→22:27)
[2018-10-08] MEDS: MIRALAX PO SCH ×2 (08:46→22:30)
[2018-10-08] MEDS: LASIX IV SCH ×4 (08:46→16:17)
[2018-10-08] MEDS: NICODERM PATCH TD SCH (08:46)
[2018-10-08] MEDS: ASPIRIN PO SCH (08:46)
[2018-10-08] MEDS ORDERED: ZAROXOLYN PO ONE (12:10)
--- NOTE | 2018-10-08 12:43 | PROGRESS NOTE ---
DATE: 10/08/2018 INTERVAL HISTORY: No acute overnight events. His foot x-ray yesterday had suggested chronic trauma or suspected osteomyelitis. However, his foot pain that he is pointing towards is at the fifth metatarsal bone rather than the first phalanx. We discussed about continuing plan. We discussed about getting a chest x-ray. I answered all of his questions. He does not appear to be in any acute distress. VITALS: Temperature 98.2 degrees, pulse 78, blood pressure 135/79, respiratory rate of 20, saturating 99% on room air. Input and output suggests yesterday -4 L. Today, it has been -2 L. PHYSICAL EXAMINATION: General: Does not appear in acute distress. Oral cavity moist. Jugular venous distention is present. Respiratory: Decreased air entry, right infrascapular region, without wheeze and rhonchi. Adequate air entry on left hemithorax. Cardiovascular: S1, S2 normal. No murmur, rub, or gallop. Jugular venous distention is present of about 10 cm. Abdomen: Soft, nontender. Extremities: Bilateral lower extremity edema extending up to the thigh is decreasing. His daily weight suggests progressively declining trend. LABS: No new labs today. I will follow up with [facility] tomorrow. DIAGNOSTIC IMAGING: Chest x-ray yesterday had suggested worsening infiltrate or atelectasis of right upper lobe. Foot x-ray yesterday had suggested bony erosion of the tip of the great toe, consistent with chronic trauma, avascular necrosis, or osteomyelitis. ASSESSMENT AND PLAN: 1. Acute on chronic congestive systolic heart failure because of ischemic cardiomyopathy and history of coronary artery disease with ejection fraction of 20% on a August 2018 echocardiogram. Because this patient is noncompliant with home medications and continued use of recreational substances, continue intravenous Lasix and add metolazone according to daily kidney function. Continue close input and output monitoring and kidney function. Continue home aspirin, high-dose statin, carvedilol, hydralazine. He continues to have very high proBNP. 2. Essential hypertension. Continue carvedilol and hydralazine. I will add isosorbide in the future as tolerated. 3. Recurrent right pleural effusion with pleural fluid analysis in August suggestive of transudative effusion and cytology in March 2018 was negative for malignancy , likely related to his acute systolic congestive heart failure exacerbation. He is not in any acute distress and depending on his course, I will consider getting additional chest x-ray. He may need future thoracenteses and pulmonology consult for evaluation. 4. Continue MiraLAX for chronic constipation, sliding scale insulin for history of insulin- dependent diabetes mellitus, folic acid for anemia of chronic disease, nicotine patch for tobacco abuse. 5. Chronic kidney disease stage 3 appears to be stable. Follow up with [facility] tomorrow. 6. Cocaine use and polysubstance use disorder. I have already counseled him multiple times about stopping these substances. 7. Chronic left foot pain. X-ray suggests bony erosion on the left great toe. However, the patient's tenderness is on the left fifth metatarsal base. I will consult orthopedics since the patient has not been able to ambulate because of that pain. 8. Disposition. The patient remains inside the hospital for continued need of intravenous Lasix. Plan of care was discussed with him. My goal is to decrease his left lower extremity swelling so as to facilitate his ambulation. At that point, I will consider changing his Lasix to oral and discharge him. I anticipate discharge later during the week. cc: Jaime Greene MD MTDD
--- NOTE | 2018-10-08 21:40 | CONSULTATION ---
DATE OF CONSULTATION: 10/08/2018 REASON FOR CONSULTATION: Left foot pain. HISTORY OF PRESENT ILLNESS: Mr. Castro is a 62-year-old male with a past medical history of diabetes mellitus type 2, peripheral neuropathy, heart failure, primary essential hypertension, chronic constipation, chronic kidney disease stage 3, polysubstance abuse, and chronic left foot pain. The patient was originally admitted for an acute on chronic systolic heart failure exacerbation. Apparently, he was requiring large doses of IV Lasix. He still does have a lot of lower extremity swelling. While he has been in the hospital, he has been complaining of some chronic left foot pain. He states that this has been bothering him for over a year, but over the last several days it has really increased. It has started to affect his ability to walk. Looking back, it does look like he has had some chronic osteo at some point of the great toe. However, this is not where his pain is. Mr. Stewart is starting to really have some trouble mobilizing so Orthopedics was consulted for management of the left foot pain. PAST MEDICAL HISTORY: 1. Severe ischemic cardiomyopathy. 2. Systolic congestive heart failure with ejection fraction of 20%. 3. Severe coronary artery disease. 4. Primary essential hypertension. 5. Hyperlipidemia. 6. Type 2 diabetes. 7. Polysubstance abuse. PAST SURGICAL HISTORY: 1. Right foot surgery. 2. Coronary stenting. 3. Thoracentesis. SOCIAL HISTORY: He does smoke about a pack of cigarettes a day for multiple years. He denies alcohol use; however, he does admit to some polysubstance abuse. FAMILY HISTORY: Noncontributory. ALLERGIES: No known drug allergies. HOME MEDICATIONS: Atorvastatin 80 mg at bedtime, Apresoline 100 mg p.o. t.i.d., Humalog insulin NPH 8 units subcu h.s., folic acid 1 mg p.o. daily, MiraLAX 17 g p.o. b.i.d., aspirin 81 mg daily, Coreg 12.5 mg p.o. b.i.d., Ultram 50 mg p.o. b.i.d., Imdur 20 mg p.o. t.i.d., Lasix 80 mg p.o. daily, albuterol 3 mL inhaled q.4 hours p.r.n. REVIEW OF SYSTEMS: A 10-point review of systems completed and negative, except what was mentioned in the HPI. PHYSICAL EXAMINATION: Current Vital Signs: Temperature is 98.2, pulse 83, respirations 20, blood pressure is 129/71, he is 100% on room air. General: This is a 62-year-old male in no acute distress. He is complaining of left foot pain. Neurologic: He is alert and orient x 3 with no focal deficits. HEENT: Head is atraumatic, normocephalic. Pupils are equal, round, reactive to light. Cardiovascular: Regular rate and rhythm. Pulmonary: Breathing is even and nonlabored. Abdomen: Appears nondistended. Extremities: Left lower extremity exam: There are no skin ulcerations or abrasions. He does have very dry skin. He is very tender plantarly under the 5th metatarsal. There is a callus there. I do not feel any area of fluctuance that might suggest an abscess or anything. He does have significant edema to the foot. This is bilateral to both lower extremities. He does have decreased sensation to the foot, but he can feel. He has a 1+ pedal pulse. IMAGING: A foot x-ray shows some chronic changes to the great toe. I do not see anything at the 5th metatarsal. I do not see any fractures. ASSESSMENT: Left foot pain. PLAN: Mr. Stewart does have an area of callus plantarly at the 5th metatarsal. I do think this is a pressure area for him. There is a little bit of a callus. There is really nothing to debride. Since he is having some much pain with ambulating, I am going to try and put him in an orthopedic boot to see if this can calm things down. We will do this for a couple of weeks to see if we can calm things down. Eventually, we need to work toward getting him some diabetic shoes as well as diabetic accommodative inserts. I think if we can help off-load that area under the 5th metatarsal that could really help his pain. He may begin some sort of stress reaction over there as well just from the way he walks. If we cannot improve his pain with the boot, we may end up getting an MRI just to rule out any sort of stress fracture type picture. We will get him the boot today and he can follow up with Dr. Erwin in the office once he is discharged from the hospital. Should you need anything else, we would be happy to see him in house. Dictated by CLAY Mazariegos for Rui Tineo MD cc: LCAY Mazariegos MD
[2018-10-08] MEDS: LIPITOR PO SCH (22:27)
[2018-10-09] MEDS: HUMALOG SUBQ SCH ×3 (07:12→17:20)
[2018-10-09] MEDS: PRILOSEC PO SCH (07:12)
--- NOTE | 2018-10-09 07:15 | Diag Imaging Result Doc PS360 ---
EXAM: CHEST-1 VIEW INDICATION: Follow up right pleural effusion TECHNIQUE: One view COMPARISON: 10/07/2018 FINDINGS: The right pleural effusion and adjacent atelectasis and/or infiltrate at the right lung base is approximately stable. Pulmonary venous congestion is stable. No new consolidation is identified. Cardiac silhouette is stable. IMPRESSION: Stable chest. Electronically signed by Matthew Loyd 10/09/2018 7:13 AM
[2018-10-09 07:41] LABS: CALCIUM 8.5 mg/dL (8.8-10.2); CREATININE 2.4 mg/dL (0.7-1.2); POTASSIUM 3.9 mmol/L (3.5-5.1)
[2018-10-09] MEDS: LASIX IV SCH ×3 (09:24→17:16)
[2018-10-09] MEDS: COREG PO SCH (09:24)
[2018-10-09] MEDS: ASPIRIN PO SCH (09:24)
[2018-10-09] MEDS: FOLIC ACID PO SCH (09:24)
[2018-10-09] MEDS: APRESOLINE PO SCH ×2 (09:24→14:54)
[2018-10-09] MEDS: MIRALAX PO SCH (09:24)
[2018-10-09] MEDS: NICODERM PATCH TD SCH (09:25)
[2018-10-09] MEDS: DUONEB (A & A) INH PRN (16:02)
--- NOTE | 2018-10-09 19:49 | PROGRESS NOTE ---
DATE: 10/09/2018 SUBJECTIVE: The patient has no focal complaints. OBJECTIVE: Vital Signs: Blood pressure is 131/84, heart rate of 86, respiratory rate of 20, temperature 98.8, 96% on room air. Cardiovascular: Regular rate and rhythm. Pulmonary: Bilateral breath sounds. Clear to auscultation. Gastrointestinal: Soft, nontender, nondistended. Bowel sounds are positive. Extremities: Still have 1 to 2+ edema, worse on the left than the right. LABORATORY DATA: BUN and creatinine are 43 and 2.4, which is kind of close to baseline for him. PROBLEM LIST: 1. Acute systolic congestive heart failure exacerbation, EF around 20% with issues of noncompliance and illicit substances. He uses cocaine, which he is 62 and has heart failure, which is just a lethal combination. In any case, he is on multiple medicines. He is on very high dose Lasix and has been for several days and still diuresing. We will continue to follow. 2. He had plain films which showed possibly a new area of osteo, which I am not sure, I think they consulted Dr. Erwin and they have evaluated him, but we will continue to follow. I am not sure if they completely focused. We will have to have a discussion real quick about that. We may just get a bone scan and call it a day. We will do that tomorrow. 3. Disposition: I think he may need another day or two of diuresis. We will continue to follow. cc: Allen Miranda MD
[2018-10-10] MEDS: COREG PO SCH ×3 (00:59→23:33)
[2018-10-10] MEDS: LIPITOR PO SCH ×2 (00:59→23:33)
[2018-10-10] MEDS: MIRALAX PO SCH ×3 (00:59→23:46)
[2018-10-10] MEDS: APRESOLINE PO SCH ×4 (00:59→23:33)
[2018-10-10] MEDS: HUMALOG SUBQ SCH ×5 (00:59→23:34)
[2018-10-10] MEDS: PRILOSEC PO SCH (07:34)
[2018-10-10 07:42] LABS: BASO# 0.01 X1000 (0.0-0.2); BASO% 0.2 % (0.0-0.8); EOS# 0.03 X1000 (0.0-0.7); EOS% 0.5 % (0.0-10.0); HEMOGLOBIN 8.5 g/dL (14.0-18.0); LYMPH# 1.12 X1000 (1.2-3.4); LYMPH% 18.8 % (20.5-51.1); MCH 26.6 PG (27-31); MCHC 30.4 g/dL (33-37); MCV 87.5 FL (81-99); MONO# 0.92 X1000 (0.11-0.59); MONO% 15.5 % (1.7-9.3); NEUT# 3.87 X1000 (1.4-6.5); PLT 116 X1000 (130-400); RDW 19.2 % (11.5-14.5); WBC 5.95 X1000 (4.8-10.8)
[2018-10-10 08:05] LABS: CALCIUM 8.6 mg/dL (8.8-10.2); CREATININE 2.4 mg/dL (0.7-1.2); POTASSIUM 3.6 mmol/L (3.5-5.1)
[2018-10-10] MEDS: ASPIRIN PO SCH (09:28)
[2018-10-10] MEDS: NICODERM PATCH TD SCH (09:28)
[2018-10-10] MEDS: LASIX IV SCH ×3 (09:28→16:37)
[2018-10-10] MEDS: FOLIC ACID PO SCH (09:28)
--- NOTE | 2018-10-10 13:21 | PROGRESS NOTE ---
DATE: 10/10/2018 SUBJECTIVE: Mr. Stewart got the 1st part of his 3 phase bone scan today. He has complained of pain mainly underneath that 5th metatarsal head area and 5th metatarsal shaft, that is where most of his pain is. He gives a history of infection in the great toe last year. He was seeing Dr. Mascorro for that and he says that it was cleared up some. He is still a little bit sensitive there but not much at all. He says it has not drained in months. OBJECTIVE: Left lower extremity exam, he really does not have much tenderness to palpation at all to the great toe. There are no open areas to the great toe. He has got a lot of dry skin all over the whole foot ankle and leg. He has got tenderness palpation underneath that 5th metatarsal head and shaft. There is not really any swelling in that area. No skin, ulcerations or abrasions anywhere. RADIOGRAPHS: Two view left foot shows some bony erosion of the distal phalanx of the great toe. ASSESSMENT: Left foot pain. PLAN: I discussed with Mr. Stewart about his foot. That great toe he is not really having any pain on it at this point. He has had a history of infection there in the past but it sounds like it has cleared up. That was treated by Dr. Mascorro. Most his pain now is under this 5th metatarsal which may end up being a stress reaction. I think he is getting pain from overloading, so we are going to use the boot on that side when he is up and walking. We will see how everything turns out from the three-phase bone scan and he will follow up with me in clinic when he is out of the hospital. cc: Delfino Erwin MD
--- NOTE | 2018-10-10 15:05 | Diag Imaging Result Doc PS360 ---
EXAM: 3 PHASE BONE SCAN INDICATION: r/o osteo TECHNIQUE: 27.8 mCi of technetium 99 MDP was administered intravenously and three phase images of the feet were obtained in usual fashion post administration. COMPARISON: Plain radiograph of the left foot dated 10/07/2018. No prior bone scan is available for comparison. FINDINGS: There is no abnormal uptake associated with the left great toe to correspond to the erosion seen on the recent plain radiograph indicating that it is chronic. There is mild increased activity at the undersurface of both calcanei, more prominent on the right, that probably relates to mild calcaneal bone spurring. No other significant abnormal uptake is appreciated. IMPRESSION: Minimal increased uptake associated with the calcanei that probably relates to mild bone spurring. No abnormal uptake is associated with the great toes. Electronically signed by Matthew Loyd 10/10/2018 3:03 PM
--- NOTE | 2018-10-10 18:48 | PROGRESS NOTE ---
DATE: 10/10/2018 SUBJECTIVE: The patient is kind of semi-sleeping but no major complaints. OBJECTIVE: Vital Signs: Blood pressure 132/66, heart rate of 81, respiratory rate 18, temperature 98.3 degrees 98% on room air. Cardiovascular: Regular rate and rhythm. Pulmonary: Bilateral breath sounds. Clear to auscultation. Gastrointestinal: Abdominal was soft, nontender, nondistended. He still has some edema 1+ in both legs. LABORATORY DATA: White count is 5, hemoglobin and hematocrit 8 and 28, platelets 116,000. Creatinine is 2.4. Bone scan did not show osteomyelitis. ASSESSMENT/PLAN: 1. Left foot swelling. History of infection but there is no osteo. There may be a stress fracture, but again no evidence of stress fracture based on the bone scan either. Abnormal uptake is in the calcaneus but is felt to be chronic. They were recommending a boot as an outpatient. Follow up with Orthopedics. At this point, there is really no other treatment options. PT, today, he refused to participate in. 2. Heart failure, congestive heart failure exacerbation with poor compliance. He is on Lasix. I think we will probably discharge him on 80 b.i.d. I may just go ahead and convert him to that, cut down to b.i.d. on his Lasix and then discharge on 80 b.i.d. His renal insufficiency is stable. He seems to be doing okay from that standpoint. We will just encourage compliance. 3. Hypertension appears to be stable on current medications. 4. Pleural effusion is overall stable as well. He had a pretty decent which I think he has actually underwent thoracentesis but did not show significant change. Now it is definitely decreased in size from the 12th. There is definitely less evidence of effusions so I think the diuresis is working. 5. Constipation. We will continue bowel regimen. 6. Chronic renal failure stage 3. Kidney function has been stable despite diuresis. DISPOSITION: We will continue diuresis and follow. Hopefully discharge in the next 1 to 2 days pending his clinical status. cc: Allen Miranda MD
[2018-10-11] MEDS: PRILOSEC PO SCH (06:26)
[2018-10-11] MEDS: HUMALOG SUBQ SCH ×4 (06:27→23:21)
[2018-10-11 06:32] LABS: BASO# 0.01 X1000 (0.0-0.2); BASO% 0.1 % (0.0-0.8); EOS# 0.02 X1000 (0.0-0.7); EOS% 0.3 % (0.0-10.0); HEMATOCRIT 30.5 % (42.0-52.0); HEMOGLOBIN 9.3 g/dL (14.0-18.0); LYMPH# 0.98 X1000 (1.2-3.4); LYMPH% 14.1 % (20.5-51.1); MCH 26.6 PG (27-31); MCHC 30.5 g/dL (33-37); MCV 87.4 FL (81-99); MONO# 1.14 X1000 (0.11-0.59); MONO% 16.4 % (1.7-9.3); MPV 12.4 FL (7.4-10.4); NEUT# 4.82 X1000 (1.4-6.5); NEUT% 69.1 % (42.2-75.2); PLT 133 X1000 (130-400); RBC 3.49 XMIL (4.7-6.1); RDW 19.4 % (11.5-14.5); WBC 6.97 X1000 (4.8-10.8)
[2018-10-11 06:53] LABS: CALCIUM 8.3 mg/dL (8.8-10.2); CREATININE 2.2 mg/dL (0.7-1.2); MAGNESIUM 1.5 mg/dL (1.5-2.7); POTASSIUM 3.4 mmol/L (3.5-5.1)
[2018-10-11] MEDS: APRESOLINE PO SCH ×3 (09:24→23:16)
[2018-10-11] MEDS: FOLIC ACID PO SCH (09:24)
[2018-10-11] MEDS: ASPIRIN PO SCH (09:24)
[2018-10-11] MEDS: NICODERM PATCH TD SCH (09:25)
[2018-10-11] MEDS: COREG PO SCH ×2 (09:25→23:16)
[2018-10-11] MEDS: LASIX IV SCH ×2 (09:25→23:16)
[2018-10-11] MEDS: MIRALAX PO SCH ×2 (09:27→23:17)
[2018-10-11] MEDS: DUONEB (A & A) INH PRN (16:27)
[2018-10-11] MEDS ORDERED: KLOR-CON PO ONE (16:53)
--- NOTE | 2018-10-11 19:14 | PROGRESS NOTE ---
DATE: 10/11/2018 SUBJECTIVE: The patient has no major complaints. He feels he cannot bear weight on his foot, but there is no evidence of fracture. We did a bone scan looking for osteoporosis, and that was really unremarkable. There is just no evidence of infection or fracture, but he claims he still cannot bear weight. I am not sure if this may be some sort of neuropathy. I am going to start a little bit of Neurontin. That may help a bit. ASSESSMENT: 1. Left foot swelling. We will continue the boot. Orthopedics will continue to follow. He does have heart failure which we are addressing, but he is stable for discharge. 2. Heart failure, congestive heart failure, systolic. We will continue Lasix and follow closely. Renal function is stable. 3. Pleural effusion, improving with diuresis. We will continue to monitor. 4. Constipation. He is on a bowel regimen. 5. Chronic renal failure stage 3. We will continue to monitor while on diuretics. DISPOSITION: I think he is probably okay to go home soon. Will anticipate discharge tomorrow. I am going to check a venous Doppler just to be complete, make sure there is nothing from that perspective going on, although curiously, he is not on any antiplatelet medication. We will continue to follow. cc: Allen Miranda MD
[2018-10-11] MEDS: LIPITOR PO SCH (23:16)
[2018-10-11] MEDS: NEURONTIN PO SCH (23:20)
[2018-10-12] MEDS: LOVENOX SUBQ SCH (06:26)
[2018-10-12 06:40] LABS: BASO# 0.01 X1000 (0.0-0.2); BASO% 0.1 % (0.0-0.8); EOS# 0.01 X1000 (0.0-0.7); EOS% 0.1 % (0.0-10.0); HEMATOCRIT 29.5 % (42.0-52.0); HEMOGLOBIN 8.9 g/dL (14.0-18.0); LYMPH# 1.21 X1000 (1.2-3.4); LYMPH% 17.4 % (20.5-51.1); MCH 26.5 PG (27-31); MCHC 30.2 g/dL (33-37); MCV 87.8 FL (81-99); MONO# 0.92 X1000 (0.11-0.59); MONO% 13.2 % (1.7-9.3); MPV 11.8 FL (7.4-10.4); NEUT% 69.2 % (42.2-75.2); PLT 147 X1000 (130-400); RBC 3.36 XMIL (4.7-6.1); RDW 19.4 % (11.5-14.5); WBC 6.95 X1000 (4.8-10.8)
[2018-10-12] MEDS: PRILOSEC PO SCH (06:53)
[2018-10-12] MEDS: HUMALOG SUBQ SCH ×4 (06:54→22:44)
[2018-10-12 07:08] LABS: CALCIUM 8.6 mg/dL (8.8-10.2); CREATININE 2.5 mg/dL (0.7-1.2); POTASSIUM 3.6 mmol/L (3.5-5.1)
[2018-10-12] MEDS: DUONEB (A & A) INH PRN ×3 (08:35→16:21)
[2018-10-12] MEDS: LASIX IV SCH ×2 (10:04→22:45)
[2018-10-12] MEDS: NEURONTIN PO SCH ×2 (10:04→22:44)
[2018-10-12] MEDS: MIRALAX PO SCH ×2 (10:04→22:44)
[2018-10-12] MEDS: APRESOLINE PO SCH ×3 (10:04→22:43)
[2018-10-12] MEDS: COREG PO SCH ×2 (10:04→22:43)
[2018-10-12] MEDS: FOLIC ACID PO SCH (10:04)
[2018-10-12] MEDS: ASPIRIN PO SCH (10:04)
[2018-10-12] MEDS: NICODERM PATCH TD SCH (10:05)
--- NOTE | 2018-10-12 16:20 | Diag Imaging Result Doc PS360 ---
EXAM: CHEST-PORTABLE - 10/12/2018 HISTORY: dyspnea TECHNIQUE: Portable chest COMPARISON: 10/09/2018 FINDINGS: There is dense right basilar opacity likely represents some combination of pleural fluid and atelectasis similar to the prior exam. The more ill-defined right mid to lower lung opacity has decreased compared to the prior exam. The left lung remains mostly clear. There is no pneumothorax identified. The right heart border is largely obscured the heart size appears grossly stable. IMPRESSION: Overall mild improvement on the right compared to prior. Electronically signed by Jony Jc 10/12/2018 4:18 PM
--- NOTE | 2018-10-12 17:27 | PROGRESS NOTE ---
DATE: 10/12/2018 SUBJECTIVE: Patient has no major complaints. He is still very short of breath. In any case, the patient has been stabilized. OBJECTIVE DATA: Vital Signs: Blood pressure is 130/75, heart rate of 87, respiratory rate 16, temperature 97.8, 100% on room air. Cardiovascular: Regular rate and rhythm. Pulmonary: Bilateral breath sounds. Clear to auscultation. Gastrointestinal: Soft, nontender, nondistended. Bowel sounds are positive. Extremity: No clubbing or cyanosis. Lymphatic: No peripheral edema. Neurologic: Nonfocal. LABORATORY DATA: White count is 6, hemoglobin and hematocrit 8 and 29, platelets 147,000. BUN and creatinine are 49 and 2.5. PROBLEM LIST: 1. Left foot swelling, pain, still very unclear, but he does not have any evidence of any major issues. He does have some blackened discoloration of his toes, which I am not sure if that is considering to be ischemia. I am just going to make sure he does not have significant PVD prior to discharge. Supposedly did a Doppler today, but I am not sure if that has been completed yet. In any case, there is no evidence of fracture or osteo at this time. 2. Congestive heart failure, acute CHF. He is on IV Lasix. Renal function is stable. He is slowly improving. 3. Persistent right pleural effusion. Unclear if this is loculated. The last time he underwent thoracentesis was in August, but he has had separate in March, May, July and August, and it is fairly recurrent. His fluid looks a little bit better today, but it is still persistent infiltrate at the right. Will pursue CT and Pulmonary consult. Clinically, he is improved. As far as I can tell, I cannot see if clearly been seen by a vial gauger. 4. Disposition: Anticipate he can go home. We will continue to follow. cc: Allen Miranda MD
[2018-10-12] MEDS: LIPITOR PO SCH (22:43)
[2018-10-13] MEDS: PRILOSEC PO SCH (06:43)
[2018-10-13 06:45] LABS: BASO# 0.01 X1000 (0.0-0.2); BASO% 0.2 % (0.0-0.8); EOS# 0.05 X1000 (0.0-0.7); EOS% 0.9 % (0.0-10.0); HEMATOCRIT 30.8 % (42.0-52.0); HEMOGLOBIN 9.2 g/dL (14.0-18.0); LYMPH# 1.25 X1000 (1.2-3.4); LYMPH% 22.1 % (20.5-51.1); MCH 26.3 PG (27-31); MCHC 29.9 g/dL (33-37); MONO# 0.71 X1000 (0.11-0.59); MONO% 12.5 % (1.7-9.3); MPV 11.4 FL (7.4-10.4); NEUT# 3.64 X1000 (1.4-6.5); NEUT% 64.3 % (42.2-75.2); PLT 150 X1000 (130-400); RDW 19.5 % (11.5-14.5); WBC 5.66 X1000 (4.8-10.8)
[2018-10-13] MEDS: LOVENOX SUBQ SCH (06:45)
[2018-10-13] MEDS: HUMALOG SUBQ SCH ×4 (06:47→22:48)
[2018-10-13 07:15] LABS: CALCIUM 8.9 mg/dL (8.8-10.2); CREATININE 2.5 mg/dL (0.7-1.2); POTASSIUM 3.7 mmol/L (3.5-5.1)
--- NOTE | 2018-10-13 08:18 | Diag Imaging Result Doc PS360 ---
CT THORAX W/O CONTRAST - 10/13/2018 INDICATION: persistent effusion COMPARISON: 08/30/2018 FINDINGS: There is been slight increase in the moderately large right pleural effusion that is probably about 60% of the hemithorax. There is some collapse of the right lung base. There is moderate cardiomegaly. Trace pericardial effusion. The left lung is well-expanded and clear with no effusion. There is mild COPD. There are couple of small stones in the kidneys. Otherwise upper abdominal images are unremarkable. There is moderate body wall edema. There are moderate degenerative changes of the spine. No acute or suspicious bony lesion. IMPRESSION: Increase in size of the right pleural effusion. Other findings are stable. This exam was performed using automated exposure control, adjustment of mA or kV according to patient size, and/or use of iterative reconstruction technique Electronically signed by Power Peralta 10/13/2018 8:15 AM
[2018-10-13] MEDS: COREG PO SCH ×2 (10:03→22:13)
[2018-10-13] MEDS: NEURONTIN PO SCH ×2 (10:03→22:12)
[2018-10-13] MEDS: ASPIRIN PO SCH (10:03)
[2018-10-13] MEDS: APRESOLINE PO SCH ×3 (10:03→22:13)
[2018-10-13] MEDS: MIRALAX PO SCH ×2 (10:03→22:20)
[2018-10-13] MEDS: FOLIC ACID PO SCH (10:03)
[2018-10-13] MEDS: LASIX IV SCH ×2 (10:03→22:13)
--- NOTE | 2018-10-13 13:33 | PROGRESS NOTE ---
DATE: 10/13/2018 SUBJECTIVE: This morning Mr. Stewart referred to be doing fairly okay. He was actually lying very comfortably in his bed. He denies any complaints. OBJECTIVE: Vitals: Blood pressure is 120/61, pulse is 83, respiration is 15, temperature is 98.6 degrees, the patient was saturating 100% on room air. General: Mr. Stewart 62-year-old gentleman he was in bed, no distress. Mucosa is pink and moist. Anicteric. Acyanotic. Neck: Supple. There is positive JVD. Chest: Air entry is bilaterally reduced, more so to the left posterior lung field. There is diffuse bilateral crackles. Cardiovascular: Regular rate and rhythm. There is a questionable S3. Abdomen: Soft, nontender. Bowel sounds present. Extremities: About 2 to 3+ pedal edema. PEDIATRICIAN/MEDICAL DOCTOR: Patient is awake, alert, and oriented. LABORATORY DATA: WBC is 5.66, hemoglobin is 9.2, platelet count of 150,000. Sodium is 138, potassium is 3.7, chloride 94, bicarb is 30, creatinine is 2.5 which is fairly patient baseline. CURRENT MEDICATIONS: Have also been reviewed. 1. Patient is on aspirin 81 mg daily. 2. Atorvastatin 80 mg at bedtime. 3. Carvedilol 12.5 b.i.d. 4. Lovenox. 5. Folic acid 1 mg daily. 6. Furosemide 60 mg IV b.i.d. 7. Gabapentin 300 b.i.d. 8. Hydralazine 50 mg 3 times per day. 9. Omeprazole 40 mg daily. 10. Tramadol. IMAGING STUDIES: A CT scan of the chest shows increase in size of the right pleural effusion. ASSESSMENT: 1. Hypoxemic respiratory failure on presentation secondary to pulmonary edema and pleural effusions currently improving. 2. Bilateral pleural effusion left more than right secondary to congestive heart failure. Will continue with the diuretic therapy. 3. Congestive heart failure with ejection fraction of 15 to 20 percent. Cardiology is on board. Recent echocardiogram shows global hypokinesis. 4. Dilated ischemic cardiomyopathy. 5. Severe peripheral vascular disease. Still pending the official report on the arterial ultrasound but from preliminary report it appears this is severe. We will wait for the report and then get vascular surgeon on board. 6. Bilateral feet swelling left more than right. I think this is just due to the general anasarca from the congestive heart failure. Doppler was negative for any clots. cc: Sanjay Cronin MD
--- NOTE | 2018-10-13 19:09 | CONSULTATION ---
DATE OF CONSULTATION: 10/13/2018 REQUESTING PROVIDER: Allen Miranda MD REASON FOR CONSULTATION: Persistent pleural effusion. HISTORY OF PRESENT ILLNESS: This is a 62-year-old male with a medical history of severe ischemic cardiomyopathy, systolic congestive heart failure, severe coronary artery disease, recurrent right pleural effusion, chronic cough secondary to chronic bronchitis, chronic kidney disease, hypertension, hyperlipidemia, diabetes, tobacco abuse, polysubstance abuse and medical noncompliance. He presented to the ER on 10/02/2018 with fluid overload, rectal bleeding, and acute hypoxemic respiratory failure. Chest x-ray in the ER revealed worsened moderate left basilar pleural effusion with adjacent atelectasis +/- infiltrate. He has been admitted with congestive heart failure exacerbation and significant pleural effusion. At the time of my examination, the patient is lying quietly in bed with a blanket covering him from head to toe. He becomes agitated as the nurse wakes him up for medication. He reports chronic ongoing shortness of breath with exertion, paroxysmal nocturnal dyspnea and cough. He denies wheezing, fever, chills, chest pain or palpitation. PAST MEDICAL AND SURGICAL HISTORY: 1. Severe ischemic cardiomyopathy. 2. Systolic congestive heart failure. Biventricular, right greater than left, with recurrent right pleural effusion and peripheral edema and elevated neck veins. Left ventricular ejection fraction of 15 to 20 percent with global setting of high hypokinesis. 3. Severe coronary artery disease status post coronary stent stenting x5 4. recurrent right pleural effusion status post thoracocentesis x4 since 2018 with 1.5 L to 2.1 L of fluid removed separately. Last thoracentesis on 08/28/2018. 5. Chronic cough secondary to chronic bronchitis. 6. Chronic kidney disease, stage 3 to 4. 7. Hypertension. 8. Hyperlipidemia. 9. Diabetes mellitus type 2, insulin dependent. 10. Tobacco abuse, chronic and ongoing. 11. Polysubstance abuse. 12. Medical noncompliance. 13. Right foot surgery. SOCIAL HISTORY: The patient lives with family. He reports he used to smoke about 1 pack per day for many years and has been weaning down a lot in the past year. He drinks alcohol occasionally. He has history of polysubstance abuse. FAMILY HISTORY: Positive for coronary artery disease. ALLERGIES: No known drug allergies. REVIEW OF SYSTEMS: A 10 point review of systems was conducted and the pertinent was listed within the HPI, otherwise noncontributory. PHYSICAL EXAMINATION: Vital Signs: Temperature 98.2 degrees, blood pressure 136/87, pulse 78, respiratory rate 17, oxygen saturation 97% at room air. General: Chronic ill appealing, malnourished, older than stated age, lying in bed with a blanket/towel from head to toe. The patient is agitated as the nurse wakes him up for medicines. HEENT: Atraumatic trachea midline. Mucosa pink and slightly dry. Respiratory: Chest expansion equal bilaterally. Diminished breathing sounds bibasilarly with early inspiratory crackles on the right middle and right lower lung zones. Cardiovascular: Regular rate and rhythm without murmur. Gastrointestinal: Bowel sounds normoactive in all 4 quadrants. Soft, nontender, nondistended. Extremities: Pedal edema 2 to 3+ bilaterally with left lower extremity worse than right lower extremity. Left lower extremity cool and tender on touch. Dorsalis pedis 1+ bibasilarly. Neurologic : The patient is alert and oriented x3. Answers questions appropriately. LABORATORY DATA: White blood cells 5.66, hemoglobin 9.2, hematocrit 30.8, platelet 150,000. Sodium 138, potassium 3.7, chloride 94, carbon dioxide 30, BUN 47, creatinine 2.5, glucose 152. IMAGING DATA: CT thorax without contrast revealed increase in size of the right pleural effusion. Otherwise, other findings stable. ASSESSMENT: This is a 62-year-old male with medical history of severe ischemic cardiomyopathy, systolic congestive heart failure, severe coronary artery disease, recurrent right pleural effusion, chronic cough, chronic bronchitis, chronic kidney disease, hypertension, hyperlipidemia, diabetes mellitus type 2 tobacco abuse, polysubstance abuse and medical noncompliance. He has been admitted since 10/02/2018 with congestive heart failure exacerbation and recurrent significant pleural effusion. He is clinically improving. He is consulted with us for further evaluation and management of persistent significant right pleural effusion: 1. Hypoxemic respiratory failure, improving, currently tolerates room air. 2. Congestive heart failure exacerbation. 3. Persistent significant right pleural effusion. The patient has been on very high dose Lasix daily since admission. CT today shows slight increase in the moderately large right pleural effusion that is probably around about 60% of the hemithorax. There is some collapse of the right lung base. The left lung is well expanded and clear with no effusion. Pleural fluid analyses in August 2018 suggestive of transudative fluid. 4. left foot swelling and pain. PLAN: 1. Continue diuretic and bronchodilators. 2. Continue physical therapy. Encourage deep breath and cough. 3. Chest CT done today; will evaluate the need to repeat thoracentesis or other more definitive surgical procedure. 4. Supplemental oxygen as needed. 5. Follow up with chest x-ray and BNP. 6. Continue GI and DVT prophylaxis. Thank you for the courtesy of this consultation. Dictated by CLAY Mcneal for Gayla Mccracken MD cc: CLAY Mcneal MD [facility]
[2018-10-13] MEDS: LIPITOR PO SCH (22:13)
[2018-10-14] MEDS: HUMALOG SUBQ SCH ×4 (06:59→22:57)
[2018-10-14 07:00] LABS: BASO# 0.01 X1000 (0.0-0.2); BASO% 0.1 % (0.0-0.8); EOS# 0.03 X1000 (0.0-0.7); EOS% 0.4 % (0.0-10.0); HEMOGLOBIN 8.6 g/dL (14.0-18.0); LYMPH# 0.93 X1000 (1.2-3.4); LYMPH% 12.3 % (20.5-51.1); MCH 26.1 PG (27-31); MCHC 29.7 g/dL (33-37); MCV 88.1 FL (81-99); MONO% 11.9 % (1.7-9.3); MPV 11.7 FL (7.4-10.4); NEUT# 5.71 X1000 (1.4-6.5); NEUT% 75.3 % (42.2-75.2); PLT 155 X1000 (130-400); RBC 3.29 XMIL (4.7-6.1); RDW 19.5 % (11.5-14.5); WBC 7.58 X1000 (4.8-10.8)
[2018-10-14] MEDS: LOVENOX SUBQ SCH (07:00)
[2018-10-14] MEDS: PRILOSEC PO SCH (07:00)
[2018-10-14 07:20] LABS: ALB/GLOB RATIO 0.5; ALBUMIN 2.3 g/dL (3.5-5.0); CALCIUM 8.5 mg/dL (8.8-10.2); CREATININE 2.8 mg/dL (0.7-1.2); POTASSIUM 3.9 mmol/L (3.5-5.1); TOTAL BILIRUBIN 0.33 mg/dL (0.20-1.00); TOTAL PROTEIN 6.9 g/dL (6.3-8.3)
[2018-10-14] MEDS: ASPIRIN PO SCH (10:04)
[2018-10-14] MEDS: NEURONTIN PO SCH ×2 (10:04→22:56)
[2018-10-14] MEDS: APRESOLINE PO SCH ×3 (10:04→22:58)
[2018-10-14] MEDS: COREG PO SCH ×2 (10:04→22:56)
[2018-10-14] MEDS: FOLIC ACID PO SCH (10:04)
[2018-10-14] MEDS: LASIX IV SCH ×2 (10:05→22:56)
[2018-10-14] MEDS: MIRALAX PO SCH ×2 (10:10→22:56)
[2018-10-14] MEDS: LEVAQUIN 500 MG/D5W 500 MG/100 ML IVPB IV SCH (16:00)
--- NOTE | 2018-10-14 16:13 | PROGRESS NOTE ---
DATE: 10/14/2018 SUBJECTIVE: Today Mr. Stewart refers to be doing fairly okay. He actually denies any complaint. OBJECTIVE: Vital signs: Blood pressure is 101/57, pulse is 88, respiration is 20, temperature is 99.4 degrees. The patient was saturating 97% on room air. However, his temperature was 100.9. General: Mr. Stewart is a 62-year-old gentleman. He was in bed, not in any cardiopulmonary distress. HEENT: Mucosa is pink and moist. Anicteric. Acyanotic. Neck: Supple. The patient also is positive for JVD. Chest: Air entry is bilaterally reduced. There are still some posterior crackles diffusely. Cardiovascular: Regular rate and rhythm. Abdomen: Soft, slightly distended, but nontender. Extremities: About 1+ pedal edema. Central nervous system: Patient is awake, alert, and oriented. DIAGNOSTIC STUDIES: WBC is 7.59, hemoglobin is 8.6, platelet count of 155. Chemistry is also reviewed. Creatinine is 2.8. The patient's baseline is around that same number. There are no imaging studies today. MEDICATION: I have reviewed the patient's current medication list as well. ASSESSMENT: 1. Acute hypoxemic respiratory failure on presentation secondary to pulmonary edema and pleural effusion. Continues to improve. 2. Bilateral pleural effusion, left greater than right. We think it is all related to congestive heart failure. The patient is on diuretic therapy. 3. Congestive heart failure in exacerbation with ejection fraction of 15% to 20%. Cardiology is on board. Recent echocardiogram shows global hypokinesis. 4. Severe dilated ischemic cardiomyopathy. We will continue with beta surya, statin, and aspirin. 5. Severe peripheral vascular disease. Noted. 6. Mild fever of unclear source, presumed that the pleural effusion could potentially be infected. I am not sure. We will repeat a chest x-ray. Patient's white cell count seems to be normal. Other parameters in terms of his vitals are stable, so I will repeat a chest x-ray and then go from there. Pulmonary has prophylactically started the patient on antibiotics. cc: Sanjay Cronin MD
[2018-10-14] MEDS: LIPITOR PO SCH (22:56)
[2018-10-15 06:18] LABS: BASO# 0.01 X1000 (0.0-0.2); BASO% 0.2 % (0.0-0.8); EOS# 0.02 X1000 (0.0-0.7); EOS% 0.3 % (0.0-10.0); HEMATOCRIT 28.2 % (42.0-52.0); HEMOGLOBIN 8.4 g/dL (14.0-18.0); LYMPH# 1.24 X1000 (1.2-3.4); LYMPH% 18.6 % (20.5-51.1); MCHC 29.8 g/dL (33-37); MCV 87.3 FL (81-99); MONO# 0.86 X1000 (0.11-0.59); MONO% 12.9 % (1.7-9.3); MPV 11.2 FL (7.4-10.4); NEUT# 4.52 X1000 (1.4-6.5); PLT 157 X1000 (130-400); RBC 3.23 XMIL (4.7-6.1); RDW 19.6 % (11.5-14.5); WBC 6.65 X1000 (4.8-10.8)
[2018-10-15 06:35] LABS: ALBUMIN 2.2 g/dL (3.5-5.0); CALCIUM 8.4 mg/dL (8.8-10.2); PHOSPHORUS 3.9 mg/dL (2.7-4.5); POTASSIUM 3.8 mmol/L (3.5-5.1)
[2018-10-15] MEDS: HUMALOG SUBQ SCH ×4 (06:53→23:06)
[2018-10-15] MEDS: PRILOSEC PO SCH (06:53)
[2018-10-15] MEDS: LOVENOX SUBQ SCH (06:54)
--- NOTE | 2018-10-15 08:08 | Diag Imaging Result Doc PS360 ---
CHEST-2 VIEWS - 10/15/2018 INDICATION: hypoxia COMPARISON: 10/12/2018 FINDINGS: There is stable opacification of the right lung base most likely a moderately large pleural effusion. This occupies about 40-50% of the right hemithorax. There is cardiomegaly and pulmonary vascular congestion similar to prior. No significant infiltrates on the left side. IMPRESSION: No change from prior. Moderate right basilar pleural effusion. Electronically signed by Power Peralta 10/15/2018 8:06 AM
[2018-10-15] MEDS: FOLIC ACID PO SCH (09:49)
[2018-10-15] MEDS: COREG PO SCH ×2 (09:49→23:08)
[2018-10-15] MEDS: APRESOLINE PO SCH ×3 (09:49→23:08)
[2018-10-15] MEDS: LASIX IV SCH (09:49)
[2018-10-15] MEDS: NEURONTIN PO SCH ×2 (09:50→23:08)
[2018-10-15] MEDS: MIRALAX PO SCH ×2 (09:50→23:07)
[2018-10-15] MEDS: LEVAQUIN 500 MG/D5W 500 MG/100 ML IVPB IV SCH (09:50)
[2018-10-15] MEDS: ALBUMIN 25% IV SCH (11:00)
[2018-10-15] MEDS: ULTRAM PO PRN ×2 (16:49→23:07)
--- NOTE | 2018-10-15 17:09 | PROGRESS NOTE ---
DATE: 10/15/2018 SUBJECTIVE: This morning Mr. Stewart refers to be doing fairly okay. Still has some residual shortness of breath, but otherwise no major problem. OBJECTIVELY: Vitals: Blood pressure is 120/77, pulse is 61, respirations 18, temperature is 98.3 degrees. General: Mr. Stewart is a 62-year-old gentleman. He was in bed. No distress. HEENT: Mucosa is pink and moist. Anicteric. Acyanotic. Neck: Supple. There is positive JVD. Chest: Air entry is bilaterally reduced, some crackles posteriorly. Cardiovascular: Regular rate and rhythm. No murmurs, no rubs, no gallops. Gastrointestinal: Abdomen is soft, slightly distended but nontender. Bowel sounds present. Extremities: About 2+ pedal edema. Central nervous system: Patient is awake, alert, and oriented. Total intake and output: Urine output was 800. The patient is still negative balance of 10, 348. Weight: His weight is 176 from 203 on admission. LABORATORY DATA: WBC is 6.65, hemoglobin is 8.4, platelet count of 157,000. Chemistry is also reviewed, creatinine is up to 3.0, BUN is 67, the patient's albumin is 3.3. ASSESSMENT: 1. Acute hypoxemic respiratory failure on presentation secondary to pulmonary edema and pleural effusion. The patient continues to be improving. 2. Bilateral pleural effusion, right greater than left, likely due to congestive heart failure. We are going to continue with the diuretic therapy at the lower dose. The patient has indication for thoracentesis. 3. Acute on chronic congestive heart failure with ejection fraction of 15% to 20 %. Cardiology is on board. 4. Severe dilated ischemic cardiomyopathy. We will continue with the patient's current medications, including beta surya, statin, and aspirin. 5. Severe peripheral vascular disease. Noted. 6. Fever of unclear source, resolved. 7. Acute on chronic renal failure, presumably cardiorenal in etiology. Creatinine continues to climb up. Patient's albumin is low. He is currently over 10,000 mL fluid behind. I think we probably might have reduced the intravascular volume and compromised the kidneys more. We would therefore reduce the dose of the Lasix and give the patient albumin to help with the intravascular space volume. cc: MD PILO Isabel
[2018-10-15] MEDS: LIPITOR PO SCH (23:08)
[2018-10-16] MEDS: ULTRAM PO PRN ×2 (05:11→11:49)
[2018-10-16] MEDS: HUMALOG SUBQ SCH ×4 (06:52→21:58)
[2018-10-16] MEDS: PRILOSEC PO SCH (06:53)
[2018-10-16 06:55] LABS: INR 1.11; PROTIME 15.2 Seconds (11.0-16.0)
[2018-10-16 06:57] LABS: PTT 59.3 Seconds (22.3-41.8)
[2018-10-16 07:12] LABS: CALCIUM 9.7 mg/dL (8.8-10.2); CREATININE 3.5 mg/dL (0.7-1.2); POTASSIUM 4.4 mmol/L (3.5-5.1)
[2018-10-16] MEDS: ALBUMIN 25% IV SCH (08:33)
[2018-10-16] MEDS: COREG PO SCH ×2 (08:34→21:26)
[2018-10-16] MEDS: LASIX IV SCH (08:34)
[2018-10-16] MEDS: APRESOLINE PO SCH ×3 (08:35→21:25)
[2018-10-16] MEDS: NEURONTIN PO SCH ×2 (08:35→21:26)
[2018-10-16] MEDS: FOLIC ACID PO SCH (08:35)
[2018-10-16] MEDS: MIRALAX PO SCH ×2 (08:35→21:26)
[2018-10-16] MEDS: LEVAQUIN 500 MG/D5W 500 MG/100 ML IVPB IV SCH (08:35)
--- NOTE | 2018-10-16 11:19 | Diag Imaging Result Doc PS360 ---
CHEST-2 VIEWS - 10/16/2018 INDICATION: POST THORACENTESIS INSPIRATION/EXPIRATION COMPARISON: 10/15/2018 FINDINGS: There has been successful drainage of the right basilar pleural effusion. There is no pneumothorax. There is cardiomegaly and pulmonary vascular congestion. IMPRESSION: No complication. Electronically signed by Power Peralta 10/16/2018 11:16 AM
--- NOTE | 2018-10-16 11:34 | Diag Imaging Result Doc PS360 ---
US THORACENTESIS W/IMAGE GUIDE - 10/16/2018 INDICATION: Diagnostic and therapeutic TECHNIQUE: The risks and benefits of the procedure were discussed with the patient. All questions were answered. Written and verbal informed consent was obtained. Overlying skin was prepped and draped in sterile fashion. Anesthesia was achieved with injection of 10 cc of 1% lidocaine. COMPARISON: CT from 10/13/2018 FINDINGS: The right basilar pleural effusion was successfully drained. 1.9 L was removed. The patient reported no symptoms. Postprocedural chest x-rays were normal. IMPRESSION: Successful and uncomplicated ultrasound-guided right thoracentesis. Electronically signed by Power Peralta 10/16/2018 11:32 AM
--- NOTE | 2018-10-16 11:54 | Diag Imaging Result Doc PS360 ---
US RENAL 2 (RETROPER) COMPLETE - 10/16/2018 INDICATION: obdulia/arf TECHNIQUE: COMPARISON: 02/03/2018 FINDINGS: The kidneys are diffusely hyperechogenic compatible with chronic medical renal disease. No obstruction. There is a right renal cyst measuring 4 cm. There is a nonobstructing stone in the upper pole of the left kidney measuring 9 x 4 mm. There is a trace amount of free fluid in the pelvis. The urinary bladder is collapsed and otherwise unremarkable. IMPRESSION: 1. No renal obstruction. Hyperechoic kidneys compatible with chronic medical renal disease. 2. Right renal cyst. 3. Nonobstructing left renal stone. 4. Trace free fluid in the pelvis. Electronically signed by Power Peralta 10/16/2018 11:51 AM
[2018-10-16 12:02] LABS: BODY FLUID SOURCE PLEURAL FLUID
[2018-10-16 12:03] LABS: SPECIMEN PLEURAL FLUID
[2018-10-16 12:17] LABS: WBC BF 144 /cumm
[2018-10-16 12:18] LABS: AMYLASE BODY FLUID 99 U/L; GLUCOSE BODY FLUID 216 mg/dL; LDH BODY FLUID 76 U/L; TOTAL PROT BODY FLUID 1.9 g/dL
[2018-10-16 12:46] LABS: MONOS 66 %; POLYS 34 %
--- NOTE | 2018-10-16 16:17 | PROGRESS NOTE ---
DATE: 10/16/2018 SUBJECTIVE: This morning Mr. Stewart refers to be doing fairly okay. Denies any complaints OBJECTIVE: Vitals: Blood pressure is 117/71, pulse is 74, respirations 18, temperature 97.6 degrees, the patient was saturating about 97% on room air. General: Mr. Stewart is a 62-year-old gentleman. He is in bed. He is not in any cardiopulmonary distress. HEENT: Mucosa is pink and moist. Anicteric. Acyanotic. Neck: Neck is supple. There is still positive JVD. Chest: Air entry is bilaterally reduced. There are crackles posteriorly. Cardiovascular: Regular rate and rhythm. No murmurs, no rubs, no gallops. Gastrointestinal: Abdomen is soft, nontender. Bowel sounds present. Extremities: About 2+ pedal edema bilateral. Central nervous system: Patient is awake, alert, and oriented. Intake and output: Urine output was 200. The patient is still negative balance of 9788. He did have some a thoracentesis done this morning, and 1.9 L was removed from the right hemithorax. DIAGNOSTIC STUDIES: Gram stain from the fluid only shows few white cells. The fluid analysis is consistent with a transudative fluid. ASSESSMENT: 1. Acute hypoxemic respiratory failure on presentation secondary to pulmonary edema and pleural effusion. Patient is improving. 2. Bilateral pleural effusions, right greater than left. Patient is now status post right-side thoracentesis, and 1.9 L was removed. Fluid analysis is consistent with a transudative fluid, which we think is due to the congestive heart failure. 3. Acute on chronic systolic heart failure with ejection fraction of 15% to 20%. Cardiology is on board. 4. Severe dilated ischemic cardiomyopathy, stable. 5. Severe peripheral vascular disease. Noted. 6. Acute on chronic renal failure, presumably cardiorenal in etiology. The patient is still with fluid about 2+ fluid overload in the lower extremities. However, the creatinine continues to go up. His albumin is about 2.2, so we are going to give him some albumin to help pull some of the fluid into the intravascular space. I have also ordered a renal ultrasound and renal urinary studies and will get Nephrology to see him. cc: Sanjay Cronin MD
--- NOTE | 2018-10-16 16:19 | VASCULAR LAB ---
PROCEDURE NAME: Arterial Bilateral Legs - 10/13/2018 REFERRING PHYSICIAN: Liam Miranda MD. INDICATIONS: Bilateral lower extremity claudication. The patient has known coronary artery disease. He is a diabetic and has high blood pressure. FINDINGS: Systolic brachial blood pressure on the right is 117 mmHg, on the left 126 mmHg. Right high thigh 250 mmHg, left high thigh 91 mmHg. Right low thigh 162 mmHg. Left low thigh 63 mmHg. Right calf 82 mmHg. Left calf 56 mmHg. Right ankle 87 mmHg. Left ankle 57 mmHg. There is diminished pulsatile flow in both feet left worse than right. There is diminished pulsatile flow in the right great toe. There is no pulsatile flow in the left great toe. At rest, the right ankle-brachial index is 0.69. Left ankle-brachial index is 0.45. INTERPRETATION: Significant bilateral femoral popliteal arterial disease left worse than right, which is severe enough to cause claudication symptoms. cc: MD Allen Downing MD
--- NOTE | 2018-10-16 16:41 | NEPHROLOGY CONSULTATION ---
DATE: 10/16/2018 REASON FOR ADMISSION: Increased work of breathing with worsening edema. REASON FOR CONSULT: Acute kidney injury on chronic kidney disease stage 3. CONSULTING PHYSICIAN: Sanjay Cronin MD HISTORY OF PRESENT ILLNESS: Mr. Stewart is a 62-year-old male, who has actually been seen by our practice in the past during a previous hospitalization on 01/29. At that time, he had the same presenting symptoms of shortness of breath with acute on chronic congestive heart failure, COPD, and CKD stage 3. The patient at that time had been followed by Cardiology, noted to be noncompliant, continued to smoke, had a history of vascular disease with a history of myocardial infarction, coronary artery stenting, and cardiomyopathy with systolic congestive heart failure and pulmonary hypertension. During this hospitalization, it revealed that his last ejection fraction was 20% performed by Cardiology. He had had a previous stress test that was negative for any active ischemia. He does have a fixed defect that was noted. The patient has had 2 thoracenteses, one performed this a.m., another performed prior to his admission, showing largely transudative. In the emergency room on admission, chest x-ray showed that he had right basilar pleural effusions with adjacent atelectasis. Current chest x-ray shows that this has not improved. The patient had a thoracentesis this a.m., CT guided. No specific drainage noted on the report. The patient is slightly confused, more than likely possibly secondary to having some sedation for his a.m. procedure when seen. He is a poor historian. He does relate that he has continued lower extremity swelling. This is from lower extremity up into the hip region. He does not complain of any increased work of breathing, though he is on oxygen. He denies any chest pain, nonspecific to nausea/ vomiting, or diarrhea. During his hospitalization , patient has had a consult with Pulmonary secondary to his continued right pleural effusion that had worsened, over 60% of his hemothorax on the right. He had a consult per Dr. Erwin for complains of 5th metatarsal pain. The patient had a renal ultrasound this morning. This has not been completed or interpreted at the time, though current readings now indicate no measurement of the right, though there is a 4 cm cyst present, left measuring 9 with a nonobstructing small stone in the mid upper pole. PAST MEDICAL HISTORY: Positive for hypertension, coronary artery disease, NV with stenting, hyperlipidemia, diabetes mellitus type 2, systolic heart failure, COPD, chronic smoker, possible chronic kidney disease stage 3, hyperlipidemia, polysubstance dependence with a history of positive cocaine drug use documented on multiple occasions, and medical noncompliance. He also has a noted ejection fraction of 20% per Dr. Ortiz. PAST SURGICAL HISTORY: Right foot surgery per Dr. Pride, coronary artery stenting with multiple occasions, and a thoracentesis in the past, now most recent as of this a.m. SOCIAL HISTORY: Unable to determine if patient lives with family. Continues to smoke. Previous documentation states that he is retired. No alcohol or illicit drug use recent. CURRENT ALLERGIES: Listed as no known drug allergies. HOME MEDICATIONS: Have yet to be reconciled, though it appears that he has been on tramadol, Isordil, atorvastatin, hydralazine, Novolin, folic acid, polyethylene glycol, aspirin, albuterol inhaler, carvedilol, Lasix. REVIEW OF SYSTEMS: Times 10, best obtained per patient and per previous several charts and consults during this admission. VITAL SIGNS: The patient's most recent vital signs temperature 98.7 degrees, blood pressure 113/65, heart rate 80. He is currently on room air, last recorded saturation is 94% INTAKE AND OUTPUT: He has had 1060 in, 200 mL out to void. DIAGNOSTIC STUDIES: Patient has pleural fluid to be evaluated. Sodium is 134, potassium 4.4, chloride 92, CO2 of 31, BUN 73, creatinine is 3.5 , glucose of 193, the patient has an anion gap of 11, calcium of 9.7. Previous albumin of 2.2 yesterday. White count yesterday was 6.65 with a hemoglobin of 8.4, platelet count 157,000. Urinalysis on admission was small hematuria and proteinuria, negative for leukocytes. His pro-time this morning was 15.2 with an INR of 1.11, PTT of 59.3. We currently have urine electrolytes pending. PHYSICAL EXAMINATION: General: This is a 62-year-old male, resting quietly in bed. He is somewhat confused. He is a poor historian. Skin: Warm and dry. HEENT: Normocephalic, atraumatic. Conjunctiva is pale. He has LYNDA. Mucous membranes are dry. Neck: Supple. Trachea midline. Unable to determine JVD in his upright positioning. Cardiovascular: He has regular rate and rhythm. No murmur or gallop was appreciated. Lungs: Basically clear to auscultation bilateral. Poor inspiratory effort. He is on room air. Abdomen: Slightly distended. Positive bowel sounds. No tenderness on palpation. Genitourinary: Not inspected. Patient has been voiding adequate amount. Extremities: The patient has 2+ edema up into the mid hip region. Neurological: He is awake and alert to person. ASSESSMENT AND PLAN: 1. Acute kidney injury. The patient has had multiple CT scans and an MRI during his hospitalization, it appears without contrast, except for his MRI. He continues with lower extremity swelling. He has been receiving Lasix daily since his admission. No improvement to his lower extremity edema. Urine electrolytes are currently pending. No indications of mass or hydronephrosis on his renal ultrasound. He is currently on renal dosed antibiotics. We will continue to observe patient's labs, monitoring his intake and output, and await pending findings of his urine electrolytes. No indications for intervention at this time. 2. Electrolytes and acid-base balance. These are acceptable. 3. Anemia. This is stable. 4. Status post thoracentesis. Pleural fluid is still pending. To be monitored by the primary care and Pulmonology. I would like to thank you for allowing us to follow with this patient. Dictated by CLAY Gary for Baron Lemon MD cc: CLAY Gary MD [facility]
--- NOTE | 2018-10-16 17:25 | Extremity Venous Study ---
PROCEDURE NAME: Venous U/S Left Leg - 10/13/2018 STUDY: Left lower extremity venous duplex, and color flow imaging study using the GE vivid E9 ultrasound System with a 9L-D transducer. REFERRING PHYSICIAN: Allen Miranda MD AGE/SEX: A 62-year-old male. SOLUTION ANALYST: Honey Alonso RVT. INDICATIONS: Left lower extremity pain and edema suggestive of deep venous thrombosis. FINDINGS: The left common femoral vein and its branches, deep and superficial femoral veins were satisfactorily imaged. They had flow through them and were compressible. Left popliteal vein and the deep veins below the left knee were all compressible and had flow through them. The superficial veins of the left lower extremity were compressible throughout their length. INTERPRETATION: No evidence of acute deep or superficial venous thrombosis left lower extremity. cc: MD Allen Downing MD
[2018-10-16] MEDS: DUONEB (A & A) INH PRN (19:17)
[2018-10-16] MEDS: LIPITOR PO SCH (21:25)
[2018-10-17] MEDS: ULTRAM PO PRN ×3 (05:12→20:15)
[2018-10-17 06:31] LABS: ALBUMIN 2.9 g/dL (3.5-5.0); CALCIUM 9.3 mg/dL (8.8-10.2); CREATININE 3.8 mg/dL (0.7-1.2); PHOSPHORUS 5.1 mg/dL (2.7-4.5); POTASSIUM 4.5 mmol/L (3.5-5.1)
[2018-10-17] MEDS: HUMALOG SUBQ SCH ×4 (06:31→17:14)
[2018-10-17] MEDS: LOVENOX SUBQ SCH (06:44)
[2018-10-17] MEDS: PRILOSEC PO SCH (06:44)
[2018-10-17 07:06] LABS: UR CREAT RANDOM 102.2 mg/dL (14-26); UR SODIUM < 10 mmoll; UR UREA NITROGEN RANDOM 362 mg/dL
[2018-10-17] MEDS: DUONEB (A & A) INH PRN ×2 (07:44→15:43)
[2018-10-17] MEDS: ALBUMIN 25% IV SCH (08:15)
[2018-10-17] MEDS: COREG PO SCH ×2 (08:26→20:18)
[2018-10-17] MEDS: NEURONTIN PO SCH ×2 (08:26→20:14)
[2018-10-17] MEDS: FOLIC ACID PO SCH (08:26)
[2018-10-17] MEDS: APRESOLINE PO SCH ×3 (08:26→20:18)
[2018-10-17] MEDS: ASPIRIN PO SCH (09:20)
[2018-10-17] MEDS: LEVAQUIN 250 MG/D5W 250 MG/50 ML IVPB IV SCH (10:19)
[2018-10-17 11:00] LABS: UR CREAT RANDOM 108.3 mg/dL (14-26)
[2018-10-17 11:04] LABS: UR PROT RANDOM 528.4 mg/dL
[2018-10-17 11:41] LABS: MAGNESIUM 1.5 mg/dL (1.5-2.7)
[2018-10-17] MEDS: MIRALAX PO SCH ×2 (12:21→20:19)
[2018-10-17] MEDS ORDERED: MAGNESIUM SULFATE 4 GM/S.W.I. 4 GM/100 ML IVPB IV ONE (14:24)
[2018-10-17] MEDS: ISORDIL PO SCH ×2 (14:42→20:16)
[2018-10-17] MEDS: COLCRYS PO SCH ×2 (14:50→20:15)
--- NOTE | 2018-10-17 15:36 | PROGRESS NOTE ---
DATE: 10/17/2018 SUBJECTIVE: This morning Mr. Stewart refers to be doing fairly okay. He was complaining that he has not been making adequate urine since his Lasix was discontinued. OBJECTIVE: Vital signs: Blood pressure is 133/93, pulse is 71, respiration is 20, temperature is 98.1 degrees. General exam: Mr. Stewart is a 72-year-old gentleman. He is in bed in no distress. HEENT: Mucosa is pink and moist. Anicteric. Acyanotic. Neck: Supple. There is positive JVD. Chest: Air entry is bilaterally reduced. There are still some crackles posteriorly. Cardiovascular: Regular rate and rhythm. No murmurs, no rubs, no gallops. GI: Abdomen is soft, minimally distended, but nontender. There is no hepatosplenomegaly. Extremities: 2+ pedal edema. 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 LABORATORY DATA: Sodium is 131, potassium is 4.5, chloride is 90, bicarbonate is 24. BUN has gone up to 79, creatinine is 3.8. Urine sodium is less than 10. ASSESSMENT: 1. Acute hypoxemic respiratory failure on presentation secondary to pulmonary edema and pleural effusion. The patient is status post right thoracentesis. Breathing has significantly improved. 2. Bilateral pleural effusions, right greater than left. The patient is status post right-sided thoracentesis, 1.9 liters was removed. Fluid analysis is consistent with transudative fluid secondary to congestive heart failure. 3. Acute on chronic systolic heart failure ejection fraction of 15 to 20 percent. Cardiology is on board. The patient is on Isordil with hydralazine, carvedilol. 4. Severe dilated ischemic cardiomyopathy noted. 5. Acute on chronic renal failure, presumably cardiorenal in etiology. However, renal function continues to be worsened. Patient's urine sodium is less than 10, which is indicative of prerenal or intravascular depletion likely due to over diuresis. Patient is currently negative balance, over 9000. Diuretic therapy has been withheld by Nephrology today. The patient continues to be on albumin. cc: Sanjay Cronin MD
--- NOTE | 2018-10-17 16:30 | NEPHROLOGY PROGRESS NOTE ---
DATE: 10/17/2018 SUBJECTIVE: He states he is not much better today, lying in bed. No nausea or vomiting. Shortness of breath is minimal at this point. He still has pain in the chest. OBJECTIVE: Blood pressure is 124/79, heart rate 80, respirations 16, afebrile. Intake is 500 mL, output 800 mL. Chronically ill-appearing man in no acute distress. I am not able to appreciate his neck veins. Trachea is midline. Heart is regular, distant. Lungs are equal. No crackles appreciated. Abdomen is soft, nontender. Bowel sounds present. Extremities with 2+ edema. No clubbing or cyanosis. IMPRESSION: Acute kidney injury overlying chronic kidney disease. Baseline creatinine is approximately 2.5, and this is worsened with diuresis. He still has some evidence of volume overload today. He is some albuminemia and has proteinuria as well, at least by dipstick this morning. We will perform a spot urine to creatinine ratio. I will put his diuretics on hold. I have discussed the case with Dr. Palencia, and he will decide whether the patient is a candidate for any further therapy from a Cardiology standpoint. cc: Baron Lemon MD
--- NOTE | 2018-10-17 19:58 | CARDIOLOGY CONSULTATION ---
DATE: 10/17/2018 REQUESTING PHYSICIANS: Nephrology service and the hospitalists. REASON FOR CONSULTATION: Congestive heart failure, advanced. CHIEF COMPLAINT: Swelling and dyspnea, pain in the right side, and pain in the legs. HISTORY OF PRESENT ILLNESS: Mr. Stewart is an unfortunate 62-year-old black male who is normally followed by Dr. Mcdonald from Internal Medicine and Dr. Quintanilla from Cardiology. He was seen last time by Dr. Quintanilla on 07/11/2018. This patient has been admitted to the hospital twice on August 25 through September 03, and then on October 02 until this time, when I just got consulted. The patient presented on October 02 to the ER with increasing dyspnea and swelling of the legs. They found that he has a large right pleural effusion, and during this admission they have performed thoracentesis, removing yesterday about 1.9 L of fluid. The patient has been treated with diuretics, and during this admission he has developed progressive azotemia with a BUN that started at 36 at the time of admission on the , and today, October 17, is 79 mg/dL. His creatinine had started out on the day of admission at 2.1 and right now is 3.8. The patient is sitting upright. He is talking without any distress. His main issue is that his legs are still swollen, and he is not comfortable about that. He is also having some pain in the right side of the chest after they did the thoracentesis. His past history is basically very extensive. He has had myocardial infarctions, and he has had coronary artery disease. He has required intervention in 2013, when they put a stent in the right coronary artery. The LAD and circumflex were free of any critical lesions. Then he had re- stenosis in May 2015, and they had to go back in and do another intervention. His imaging studies have shown that his ejection fraction is very low in the 20% to 25% range. He has an extensive inferior defect. He has a history of chronic kidney disease. He has diabetes mellitus type 2, hypertension and hyperlipidemia. He has had surgical procedures in the past, including cholecystectomy, hemorrhoid surgery, cyst removal and toe surgery. SOCIAL HISTORY: He is and lives by himself; however, 1 daughter goes to see him often. The patient has been found to have been using cocaine on several of his hospital admissions, including the current one. He is on disability. REVIEW OF SYSTEMS: He has had multiple hospital admissions for exacerbation of heart failure throughout the course of 2018: Between January 29 and February 03, April 17 through April 22, and then June 05 through June 12 with heart failure, and then the last 2 admissions within the past 6 weeks. The patient is really having issues with medical compliance. He has limited financial resources to purchase his medications. He also lives by himself, and he is not very well into following the medical regimen strictly. He has not had any recent bouts of angina pectoris, syncope or palpitations. PHYSICAL EXAMINATION: VITAL SIGNS: Today blood pressure is 120/82, temperature 98.1, pulse 78, respirations 20. GENERAL: He is awake, alert and oriented. HEENT: Shows prominent jugular venous distention all the way up to the angle of the jaw. CHEST: Diminished breath sounds especially in the right lung with dullness to percussion. CARDIOVASCULAR: Heart sounds regular and rhythmic. There is a question of a 3rd heart sound. DIAGNOSTICS: The EKG that they did on the , the only one that we have in the chart, shows sinus rhythm with PACs with diffuse T-wave abnormality. His most recent chest x-ray that was done after the thoracentesis shows no pneumothorax, cardiomegaly with pulmonary congestion. His hemoglobin is 8.4. White cell count is 2350. His magnesium last time it was checked was 1.5. This was on the . IMPRESSION: 1. Patient with advanced class IV congestive heart failure. He is decompensated. He is probably in a [id number] state. 2. Severe coronary heart disease. Previous stent and myocardial infarction to right coronary artery. 3. Medical noncompliance and use of cocaine. 4. Diabetes mellitus type 2. 5. History of hypertension. 6. History of hyperlipidemia. RECOMMENDATIONS: At this point in time we will try to make some adjustments to his medications, including cutting down on carvedilol and putting him on a combination of isosorbide dinitrate with hydralazine. This patient's prognosis is really very poor, especially because of the use of cocaine, which is essentially a deadly habit for this patient. He really needs to be counseled intensively and maybe get a wellness specialist to help him deal with it. We will give further recommendations depending on his clinical course. cc: Irwin Palencia MD
[2018-10-17] MEDS: LIPITOR PO SCH (20:14)
--- NOTE | 2018-10-17 23:55 | PULMONOLOGY PROGRESS NOTE ---
DATE: 10/17/2018 SUBJECTIVE: Patient is awake, alert, and conversant. He reports he feels better. He appears to be fluid positive over the last 24 hours. OBJECTIVE: Vital Signs: The patient has been afebrile for the last 24 hours. Blood pressure 146/72, heart rate 82, respiratory rate 18, oxygen saturation 96% on room air. HEENT: Pupils are equal and reactive. Oropharynx appears clear. Neck: Is supple. Chest: Reveals good air entry bilaterally without wheezing or rhonchi. Cardiac: S1-S2 . Abdomen: Is soft. Extremities: Without edema. LABORATORIES: Chest x-ray post thoracentesis reveals good drainage. Pleural fluid cultures are negative. Cytology is pending. Pleural fluid is transudative. IMPRESSION: 62-year-old with renal failure, cardiomyopathy with severe reduction in systolic ejection fraction, transudative pleural effusions. RECOMMENDATIONS: 1. Continue to manage heart failure and renal failure. 2. Following along with you. cc: Evan Del Rosario MD
[2018-10-18] MEDS: HUMALOG SUBQ SCH ×6 (00:25→22:39)
[2018-10-18] MEDS: LOVENOX SUBQ SCH (06:16)
[2018-10-18] MEDS: PRILOSEC PO SCH (06:17)
[2018-10-18 07:21] LABS: ALBUMIN 3.1 g/dL (3.5-5.0); CALCIUM 9.5 mg/dL (8.8-10.2); CREATININE 4.2 mg/dL (0.7-1.2); PHOSPHORUS 5.5 mg/dL (2.7-4.5); POTASSIUM 4.2 mmol/L (3.5-5.1)
[2018-10-18] MEDS: DUONEB (A & A) INH PRN ×2 (08:30→16:19)
[2018-10-18] MEDS: MIRALAX PO SCH ×2 (10:11→22:43)
[2018-10-18] MEDS: COREG PO SCH ×2 (10:14→22:40)
[2018-10-18] MEDS: ISORDIL PO SCH ×3 (10:14→22:40)
[2018-10-18] MEDS: ASPIRIN PO SCH (10:14)
[2018-10-18] MEDS: NEURONTIN PO SCH ×2 (10:14→22:40)
[2018-10-18] MEDS: COLCRYS PO SCH ×2 (10:14→22:39)
[2018-10-18] MEDS: APRESOLINE PO SCH ×3 (10:15→22:40)
[2018-10-18] MEDS: LEVAQUIN 250 MG/D5W 250 MG/50 ML IVPB IV SCH (10:15)
[2018-10-18] MEDS: FOLIC ACID PO SCH (10:15)
--- NOTE | 2018-10-18 10:33 | Diag Imaging Result Doc PS360 ---
EXAM: FOOT COMPLETE LEFT HISTORY: left foot pain and swelling TECHNIQUE: Left foot, three views COMPARISON: 10/07/2018 FINDINGS: Bone erosion to the distal portion of the distal phalanx of the great toe. Mild narrowing to the first metatarsal phalangeal joint. Tiny inferior calcaneal bone spur. No fracture. No dislocation. IMPRESSION: No interval change. Electronically signed by Juan Henderson 10/18/2018 10:31 AM
--- NOTE | 2018-10-18 13:53 | PROGRESS NOTE ---
DATE: 10/18/2018 SUBJECTIVE: This morning Mr. Stewart referred to be doing for the most part the same time. He complains of some pain in the feet. He also looks remarkably swollen. OBJECTIVE: Vital signs: Blood pressure is 118/62, pulse is 76, respirations 16, temperature is 98.3 degrees. The patient is saturating 95% on room air. General: Mr. Stewart is a 62-year-old male. He is in bed. He is not in any cardiopulmonary distress. Mucosa is pink and moist. Anicteric. Acyanotic. Neck: Supple. Positive JVD. Chest: Air entry is bilaterally reduced. There are some crackles in both posterior lung rawls. Cardiovascular: Regular rate and rhythm. No murmurs, no rubs, no gallops. GI: Abdomen is soft, distended, minimally tender in the right upper quadrant. There is positive hepatojugular reflex. There is fluid around the lateral aspect of the abdominal wall. Extremities: About 3+ pedal edema bilateral. 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 LABORATORY DATA: Sodium is 131, potassium is 4.2, chloride is 89, bicarb is 21, BUN went up to 86, creatinine is up to 4.2. A1c 7.0. Phosphorus is elevated. CURRENT MEDICATIONS: Have also been reviewed. X-ray of the foot, which was done this morning, shows no interval change. The patient's current medications have also been reviewed. ASSESSMENT: 1. Acute hypoxemic respiratory failure on presentation secondary to pulmonary edema and pleural effusion. Patient is status post right thoracentesis 1.9. Fluid was removed. Breathing seems to be slightly better. He is currently not on any oxygen therapy. He is breathing ambient air. 2. Bilateral pleural effusions, right greater than left. Fluid analysis is suggestive of transudative fluid secondary to congestive heart failure. 3. Acute on chronic systolic heart failure, ejection fraction of 15% to 20%. The patient is currently on heart medications. Cardiology is on board. 4. Severe dilated ischemic cardiomyopathy. 5. Acute on chronic renal failure. The patient's urine output has been remarkably marginal. Diuretics have been withheld. He is currently negative balance of [id number]. However, he still looks fluid overloaded. The patient is being evaluated by both Cardiology and Nephrology. We are going to put in a Diallo catheter to have more precise urine output. The patient did have a kidney ultrasound which did not show any obstruction. There was hyperechoic kidneys compatible with chronic renal disease, unsure if this is just the continued worsening of patient's renal disease. 6. Hyperuricemia. At this point, Mr. Stewart is not complaining of any acute joint pains. He, however, did refer for some discomfort under the foot bottom. I see he has been started on colchicine by Cardiology team. We will follow along. cc: Sanjay Cronin MD
--- NOTE | 2018-10-18 14:56 | CONSULTATION ---
DATE OF CONSULTATION: 10/18/2018 CHIEF COMPLAINT: Left foot pain. HISTORY OF PRESENT ILLNESS: This is a 62-year-old male, who has been having some left foot pain and swelling. He is talking of difficulty with ambulation. PAST MEDICAL HISTORY, PAST SURGICAL HISTORY, MEDICINES, ALLERGIES: See admission history and physical. ROS: Positive for left foot pain. All others negative. PHYSICAL EXAMINATION: General: Reveals a well-developed, well-nourished male. He is alert, oriented, and cooperative with exam. Extremities: Exam of his leg does reveal swelling, tenderness over his foot. There is no crepitus. His foot appears neurovascularly intact. ASSESSMENT: Left foot swelling and pain. PLAN: We will get x-rays of his foot and re-evaluate him once those are obtained. cc: Crow Augustine MD MTDD
--- NOTE | 2018-10-18 15:00 | NEPHROLOGY PROGRESS NOTE ---
DATE: 10/18/2018 SUBJECTIVE: He thinks he may be hallucinating. He describes seeing things and limb movement during sleep. OBJECTIVE: Vital Signs: Blood pressure 103/78, heart rate recorded at 30 but was not 30 at the time of my exam, respirations 16, afebrile. Generally: No acute distress. Skin: Warm and dry. Neck: Neck veins are distended. Trachea is midline. Heart: Regular with a gallop. Lungs: Have equal breath sounds. No crackles. Abdomen: Soft, nontender. Extremities: Have 2+ edema. No clubbing or cyanosis. IMPRESSION AND PLAN: Acute kidney injury secondary to prerenal factors and diuretic use. He is on a diuretic holiday. Urine output has fallen. He is in positive fluid balance in the last 24 hours but overall net negative 8.7 L. Continue to hold Lasix if okay with Cardiology. cc: Baron Lemon MD
[2018-10-18] MEDS: LIPITOR PO SCH (22:40)
[2018-10-18] MEDS: ZYLOPRIM PO SCH (22:40)
[2018-10-18] MEDS: ULTRAM PO PRN (22:50)
[2018-10-18] MEDS ORDERED: TUMS PO ONE (23:35)
[2018-10-19 06:53] LABS: BASO# 0.01 X1000 (0.0-0.2); BASO% 0.2 % (0.0-0.8); EOS# 0.02 X1000 (0.0-0.7); EOS% 0.4 % (0.0-10.0); HEMATOCRIT 24.7 % (42.0-52.0); HEMOGLOBIN 7.7 g/dL (14.0-18.0); LYMPH# 0.82 X1000 (1.2-3.4); LYMPH% 17.1 % (20.5-51.1); MCH 26.1 PG (27-31); MCHC 31.2 g/dL (33-37); MCV 83.7 FL (81-99); MONO# 0.61 X1000 (0.11-0.59); MONO% 12.7 % (1.7-9.3); MPV 11.9 FL (7.4-10.4); NEUT# 3.33 X1000 (1.4-6.5); NEUT% 69.6 % (42.2-75.2); PLT 131 X1000 (130-400); RBC 2.95 XMIL (4.7-6.1); WBC 4.79 X1000 (4.8-10.8)
[2018-10-19] MEDS: PRILOSEC PO SCH (06:56)
[2018-10-19] MEDS: LOVENOX SUBQ SCH (06:56)
[2018-10-19] MEDS: HUMALOG SUBQ SCH ×4 (06:56→23:33)
[2018-10-19 06:59] LABS: URINE SOURCE CATH
[2018-10-19 07:41] LABS: CALCIUM 9.2 mg/dL (8.8-10.2); CREATININE 4.4 mg/dL (0.7-1.2); POTASSIUM 4.5 mmol/L (3.5-5.1)
[2018-10-19] MEDS: DUONEB (A & A) INH PRN (07:47)
[2018-10-19 07:51] LABS: BILIRUBIN URINE NEGATIVE (NEGATIVE); BLOOD URINE MODERATE (NEGATIVE); COLOR ORANGE; GLUCOSE URINE NEGATIVE (NEGATIVE); KETONE URINE NEGATIVE (NEGATIVE); LEUKOCYTES URINE TRACE (NEGATIVE); NITRITE URINE NEGATIVE (NEGATIVE); PROTEIN URINE 600 mg/dL (NEGATIVE); SP GRAVITY URINE 1.013; TURBIDITY URINE TURBID (CLEAR); UR EPITHELIAL CELLS <10 /HPF (<10); URINE BACTERIA NEGATIVE /HPF; URINE RBC TNTC /HPF (<10); URINE WBC <10 /HPF (<10); UROBILINOGEN URINE NORMAL (NORMAL)
[2018-10-19 08:10] LABS: RETIC% 0.93 % (0.8-2.1); RETIC-HE 22.8 PG (28.2-36.6)
[2018-10-19 08:22] LABS: CALCIUM 8.6 mg/dL (8.8-10.2)
[2018-10-19 08:24] LABS: IRON SATURATION 16 %; TIBC 174 ug/dL; TOTAL IRON 28 ug/dL (53-167); UNBOUND IRON 146 ug/dL (112-346)
[2018-10-19 08:43] LABS: FERRITIN 594 ng/mL (30-400)
[2018-10-19] MEDS: ZYLOPRIM PO SCH ×2 (09:41→23:29)
[2018-10-19] MEDS: APRESOLINE PO SCH ×2 (09:41→16:17)
[2018-10-19] MEDS: ISORDIL PO SCH ×3 (09:41→23:29)
[2018-10-19] MEDS: COLCRYS PO SCH ×2 (09:41→23:29)
[2018-10-19] MEDS: COREG PO SCH ×2 (09:41→23:29)
[2018-10-19] MEDS: ASPIRIN PO SCH (09:41)
[2018-10-19] MEDS: FOLIC ACID PO SCH (09:41)
[2018-10-19] MEDS: MIRALAX PO SCH ×2 (09:42→23:33)
[2018-10-19] MEDS: NEURONTIN PO SCH ×2 (09:44→23:29)
--- NOTE | 2018-10-19 10:10 | Diag Imaging Result Doc PS360 ---
EXAM: CHEST-2 VIEWS - 10/19/2018 HISTORY: abnormal exam TECHNIQUE: Chest two views COMPARISON: 10/16/2018 FINDINGS: There is increased opacity at the lower right chest. The prior. This may relate to moderate pleural effusion or possibly a smaller right pleural effusion with elevation of the right hemidiaphragm. There is a tiny left pleural effusion. There is mild prominence of vascular markings. There is no pneumothorax identified. The right heart border is largely obscured the heart size appears grossly stable. IMPRESSION: Moderate pleural effusion versus smaller pleural effusion with elevated hemidiaphragm on the right. Electronically signed by Jony Jc 10/19/2018 10:08 AM
--- NOTE | 2018-10-19 12:05 | PROGRESS NOTE ---
DATE: 10/19/2018 SUBJECTIVE: Patient continues without shortness of breath on room air. There has been no chest pain. He reports discomfort in both feet related to swelling. OBJECTIVE: Vital Signs: Blood pressure 125/88, heart rate 103, oxygen saturation 93% to 97% on room air. Neck: Jugular venous distention is prominent, consistent with significantly elevated central venous pressure. Lungs: Auscultation chest reveals diminished breath sounds in the right base posteriorly to about [facility] up. No rales could be appreciated. Cardiac: Reveals a regular rate and rhythm without appreciable murmur or gallop. Extremities: Demonstrate moderate pretibial pitting edema. LABORATORY DATA: Includes a white blood cell count 4.79, hematocrit 24.7, hemoglobin 7.7, platelet count 131,000. Sodium 127, potassium 4.5, chloride 86, carbon dioxide 23, BUN 91, creatinine 4.4, glucose 193. IMPRESSION: 1. Acute on chronic systolic heart failure. The patient continues to manifest markedly elevated central venous pressure with reaccumulation of right pleural effusion despite recent thoracentesis, and significant pedal edema. 2. Severe ischemic cardiomyopathy. 3. Acute on chronic renal failure. 4. Diabetes mellitus, type 2. 5. Hypertension. 6. Hyperlipidemia. RECOMMENDATIONS: 1. Continue Coreg at current dose. 2. We will gently increase hydralazine further as tolerated. 3. The patient currently on Lasix holiday per Nephrology. It appears that his renal function is not any better, and he manifests evidence of significant volume overload. Volume removal might help if he does have a component of cardiorenal syndrome; however, I suspect that he has crossed the threshold of requiring dialysis. cc: Eldon Robins MD
--- NOTE | 2018-10-19 13:18 | PROGRESS NOTE ---
DATE: 10/19/2018 SUBJECTIVE: Lyndon Stewart is a patient I am seeing for left foot pain. Dr. Tineo saw him earlier in the month. OBJECTIVE: On physical exam, it is unchanged from yesterday. RADIOLOGY DATA: His x-rays are unchanged from his previous consultation by Dr. Tineo. ASSESSMENT: Stable left foot. PLAN: He will continue the postoperative care as outlined in Dr. Tineo note. We will be available as needed. cc: Crow Augustine MD
[2018-10-19] MEDS ORDERED: VITAMIN D PO SCH (14:15)
--- NOTE | 2018-10-19 14:54 | PROGRESS NOTE ---
DATE: 10/19/2018 SUBJECTIVE: This morning Mr. Stewart refers to be doing fairly the same. He complains to be slightly weaker than days before. OBJECTIVE: Vital signs: Blood pressure is 124/88, pulse is 103, respirations 20, temperature 98.8 degrees. The patient was saturating about 93 to 97 on room air. General: Mr. Stewart is a 62- year-old gentleman. He is in bed, no distress. HEENT: Mucosa is pink and moist. Anicteric. Acyanotic. Neck: Supple. Chest: Good air entry bilaterally. There are still some crackles posteriorly. Cardiovascular: Regular rate and rhythm. No murmurs. No rubs. No gallops. GI: Abdomen is soft, distended, minimally tender in the right upper quadrant. There is positive hepatojugular reflux. There is also positive JVD. There is fluid at the lateral aspect of the abdominal wall. Extremities: About 3+ pedal edema extending all the way to the thighs. L[employer] SU[employer] SPECIALIST: Patient is awake, alert, oriented. He seems to have asterixis. His mentation this morning seems to be a little slower in response to days before. LABORATORY DATA: WBC is 4.79, hemoglobin is 7.7, platelet count of 131,000. Chemistry is also reviewed. Sodium is 127, potassium is 4.5, chloride is 87, bicarb is 23, BUN is up to 91, creatinine is 4.4, BUN creatinine ratio is 21, calcium is 8.6, phosphorus is 6.0, ferritin level is 594. Vitamin D is less than 5. A chest x-ray this morning shows moderate pleural effusion versus small pleural effusion with elevated hemidiaphragm. ASSESSMENT: 1. Acute hypoxemic respiratory failure on presentation secondary to pulmonary edema and pleural effusion. The patient got a right-sided thoracentesis, 1.9 L was removed from the right lung on October 16, 2018. However, x-ray this morning continues to show reaccumulation. 2. Bilateral pleural effusion, right greater than left. Fluid analysis is suggestive of transudative fluid secondary to congestive heart failure. This seems to have reaccumulated after the thoracentesis. 3. Acute on chronic systolic heart failure, ejection fraction of 15% to 20%. Cardiology is on board. We will continue titrating his medication for optimum cardiac management. 4. Severe dilated ischemic cardiomyopathy, noted. 5. Acute on chronic renal failure. Patient's creatinine continues to worsen, as well as the BUN. His urine output was just marginal, 500 yesterday. Diuretics continue to be on hold. The patient still has a lot of fluid in the lower extremities. He seems to be slightly slower in his mentation and there is asterixis which is concerning that the patient is getting near the need for dialysis. We will wait for Nephrology to evaluate the patient and then go from there. 6. Hyperuricemia. The patient is on allopurinol. Cardiology had started the patient on colchicine. However, with the worsening of his renal function, I think the doses need to be readjusted. We will wait for them to evaluate the patient and make it accordingly. 7. Left foot pain. This has been evaluated by Orthopedics. X-ray of the foot yesterday shows mild narrowing to the first metatarsophalangeal joint. I think this is all musculoskeletal pain. We will continue addressing with adequate pain management and physical therapy. Orthopedics is on board. PLAN: So in general, Mr. Stewart is a 62-year-old gentleman who is known to have advanced, severe dilated ischemic cardiomyopathy. He was discharged from the hospital early last month and came back on October 02, 2018 mainly because of shortness of breath and worsening edema. Today is day 17 in the hospital. Mr. Stewart was making adequate urine with diuretic therapy. However, his kidney function has continued to decline throughout the hospital stay, to the point where today his BUN is 91 and his creatinine is up to 4.4, has marginal oliguric picture urine output. He is being evaluated by multiple subspecialties. We are pending Nephrology and Cardiology evaluation today. I think Mr. Stewart is heading towards probable renal replacement sooner than we thought. We will await Nephrology's recommendations. Disposition is going to depend on the rest of his hospital course. cc: Sanjay Cronin MD
[2018-10-19] MEDS: PHOSLO PO SCH (16:18)
--- NOTE | 2018-10-19 18:32 | PULMONOLOGY PROGRESS NOTE ---
DATE: 10/19/2018 SUBJECTIVE: The patient reports mild dyspnea on exertion. He is without other complaints. OBJECTIVE: Vital signs: BP 125/88, heart rate 103, respiratory rate 20, oxygen saturation 93% on room air. HEENT: Pupils are equal and reactive. Oropharynx is clear. Neck: Supple. Chest: Reveals decreased breath sounds right base. Cardiac exam: S1, S2. Regular rate and rhythm. Abdomen: Soft with good bowel sounds. Extremities: Reveal 2+ pretibial edema. LABORATORIES: Chest x-ray reveals reaccumulation of fluid in the right hemithorax. IMPRESSIONS: This is a 62-year-old with: 1. Recurrent transudative pleural effusion. 2. Cardiomyopathy with severe reduction in ejection fraction. 3. Renal failure. RECOMMENDATIONS: 1. I agree with plans for fluid restriction and diuretics as you are doing. 2. Prognosis is guarded with significant heart and kidney dysfunction. cc: Evan Del Rosario MD
[2018-10-19] MEDS: LIPITOR PO SCH (23:29)
[2018-10-20] MEDS: APRESOLINE PO SCH ×4 (04:17→21:50)
[2018-10-20] MEDS: PRILOSEC PO SCH (06:13)
[2018-10-20] MEDS: LOVENOX SUBQ SCH (06:13)
[2018-10-20 06:14] LABS: BASO# 0.01 X1000 (0.0-0.2); BASO% 0.2 % (0.0-0.8); EOS# 0.05 X1000 (0.0-0.7); HEMATOCRIT 24.9 % (42.0-52.0); HEMOGLOBIN 7.8 g/dL (14.0-18.0); IMM GRAN# 0.04 X1000 (0.0-0.04); IMM GRAN% 0.8 % (0.0-0.5); LYMPH# 0.93 X1000 (1.2-3.4); LYMPH% 18.6 % (20.5-51.1); MCHC 31.3 g/dL (33-37); MONO# 0.66 X1000 (0.11-0.59); MONO% 13.2 % (1.7-9.3); MPV 11.9 FL (7.4-10.4); NEUT% 66.2 % (42.2-75.2); PLT 124 X1000 (130-400); RDW 18.8 % (11.5-14.5); WBC 4.99 X1000 (4.8-10.8)
[2018-10-20] MEDS: HUMALOG SUBQ SCH ×4 (06:30→23:31)
[2018-10-20 06:52] LABS: CREATININE 4.5 mg/dL (0.7-1.2); PHOSPHORUS 5.9 mg/dL (2.7-4.5); POTASSIUM 4.3 mmol/L (3.5-5.1)
[2018-10-20] MEDS: COLCRYS PO SCH ×2 (08:26→21:50)
[2018-10-20] MEDS: ZYLOPRIM PO SCH ×2 (08:26→21:50)
[2018-10-20] MEDS: PHOSLO PO SCH ×3 (08:26→16:13)
[2018-10-20] MEDS: FOLIC ACID PO SCH (08:26)
[2018-10-20] MEDS: ASPIRIN PO SCH (08:26)
[2018-10-20] MEDS: NEURONTIN PO SCH ×2 (08:26→21:50)
[2018-10-20] MEDS: COREG PO SCH ×2 (08:26→21:50)
[2018-10-20] MEDS: ISORDIL PO SCH ×3 (08:26→21:50)
[2018-10-20] MEDS: MIRALAX PO SCH ×2 (08:27→23:32)
--- NOTE | 2018-10-20 14:40 | NEPHROLOGY PROGRESS NOTE ---
DATE: 10/20/2018 SUBJECTIVE: Patient is sitting up in bed. He is complaining that no one has done anything about his left foot that is causing him pain. He states he understands that he has fluid on. He had a Diallo placed last night. OBJECTIVE: Vital Signs: Temperature 98.8 degrees, pulse 81, respiratory rate 20, blood pressure 136/69. Intake and output: Intake 168 mL. Output 725 mL. General: A middle-aged gentleman, sitting up in bed. Awake and alert. He is in no acute distress, although he is somewhat aggravated. HEENT: Normocephalic, atraumatic. LYNDA. Oral mucosa moist. Neck : Supple. He has positive JVD. Cardiovascular: Regular rate and rhythm. Gallop noted. Pulmonary: Clear bilaterally. No wheeze or rhonchi. No rales. Abdomen: Soft. Positive bowel sounds. Genitourinary: He has 2+ edema. He does have some wrinkling to the skin noted. The sole of the left foot has coarse calluses to it. He does have some vascular changes noted bilateral lower extremities. Integumentary: Skin is warm and dry otherwise. LABORATORY DATA: WBC of 4.9, hemoglobin 7.8. Sodium 128 potassium 4.3, CO2 of 23, creatinine 4.5 (4.4), BUN 93 (91), albumin 3.0. ASSESSMENT AND PLAN: 1. Acute kidney injury secondary to prerenal factors and diuretics. The patient does remain on a diuretic holiday. He did make almost 1 L urine yesterday. He had a Diallo catheter. He has greater than 500 mL out already this morning. The patient has no indications for intervention, other than his current treatment plan. We will continue to follow closely. 2. Pain to the foot. He is being followed by Orthopedics. Dictated by CLAY Waldron for Baron Lemon MD Face to face encounter, data reviewed, discussed with Pradeep Kiran on 10/20/18. I agree with the above assessment and plan of care. cc: Baron Lemon MD [facility]
--- NOTE | 2018-10-20 16:07 | PROGRESS NOTE ---
DATE: 10/20/2018 INTERVAL HISTORY: The patient's dyspnea largely resolved. Now off oxygen. Complaining of some left foot pain, which is largely chronic and imaging showing only arthritis. REVIEW OF SYSTEMS: A 12 point review of systems was negative except as per Interval History. LABORATORY DATA: WBC 4.9, hemoglobin 7.8, hematocrit 24.9, platelets 124,000. Sodium 128, potassium 4.3, chloride 88, bicarbonate 23, BUN 93, creatinine 4.5, glucose 158, albumin 3.0. Phosphorus 5.9. A1c 7.0 VITALS: T-max 98.8, pulse 81, respirations 20, blood pressure 136/69, O2 saturation 98% on room air. PHYSICAL EXAMINATION: General: No acute distress. Vitals: As above. HEENT: Normocephalic, atraumatic. Moist mucous membranes. Neck: No cervical adenopathy. Cardiovascular: Regular rate and rhythm. No murmurs, rubs, or gallops. Pulmonary: Largely clear to auscultation bilaterally with only very faint basilar crackles posteriorly. Abdomen: Soft, nontender, nondistended. Bowel sounds positive. Extremities: Peripheral pulses decreased, but intact. Still with 3+ lower extremity edema bilaterally. Neurological: Cranial nerves grossly intact. No focal deficits identified. Psychiatric: Initially asleep, but was arousable, and after a few moments became coherent, oriented x3. Normal mood and affect. ASSESSMENT AND PLAN: 1. Acute hypoxic respiratory failure secondary to acute on chronic systolic congestive heart failure: Last known ejection fraction 15-20. Patient presented with some fairly mild pulmonary edema, effusions, and O2 saturation down to 86%. The patient is status post right- sided thoracentesis with almost 2 L removed. Was initially dialyzed aggressively with improvement in respiratory status, but has had worsening acute kidney injury on CKD 3. The patient has been on diuretic holiday for the last few days, but creatinine has continued to increase slowly. No urgent need for dialysis, but suspect he will end up needing dialysis in the near future. Continue to monitor respiratory status off of diuretics. 2. Dilated ischemic cardiomyopathy. Noted. 3. Acute kidney injury (JOURDAN) on chronic kidney disease (CKD) stage 3. Creatinine worsening as above. Remains off diuretics. Awaiting further Nephrology recommendations. 4. Hyperuricemia. Continue allopurinol. If kidney function continues to worsen, then may need to decrease to daily but okay for now. 5. Left foot pain. X-ray just showed arthritis. No major pathology. No erythema or evidence of infection. We will treat symptomatically. 6. Deep vein thrombosis (DVT) prophylaxis. Meir.
[2018-10-20] MEDS: LIPITOR PO SCH (21:50)
[2018-10-21] MEDS: ULTRAM PO PRN (05:47)
[2018-10-21] MEDS: PRILOSEC PO SCH ×2 (05:48→05:59)
[2018-10-21] MEDS: LOVENOX SUBQ SCH (05:51)
[2018-10-21] MEDS: HUMALOG SUBQ SCH ×3 (06:08→16:04)
[2018-10-21 07:16] LABS: ALBUMIN 3.1 g/dL (3.5-5.0); CALCIUM 8.4 mg/dL (8.8-10.2); CREATININE 4.6 mg/dL (0.7-1.2); PHOSPHORUS 5.2 mg/dL (2.7-4.5); POTASSIUM 3.7 mmol/L (3.5-5.1)
[2018-10-21] MEDS: FOLIC ACID PO SCH (08:23)
[2018-10-21] MEDS: COREG PO SCH (08:23)
[2018-10-21] MEDS: NEURONTIN PO SCH (08:24)
[2018-10-21] MEDS: ASPIRIN PO SCH (08:24)
[2018-10-21] MEDS: ZYLOPRIM PO SCH (08:24)
[2018-10-21] MEDS: PHOSLO PO SCH ×3 (08:25→16:01)
[2018-10-21] MEDS ORDERED: COLCRYS PO SCH (09:00)
[2018-10-21] MEDS: APRESOLINE PO SCH ×2 (09:11→16:00)
[2018-10-21] MEDS: ISORDIL PO SCH ×2 (09:12→16:00)
[2018-10-21 11:01] LABS: UR AMPHETAMINES QUAL NONE DETECTED (NONE DETECT); UR BARBITUATES QUAL NONE DETECTED (NONE DETECT); UR BENZODIAZEPIN QUAL NONE DETECTED (NONE DETECT); UR CANNABINOIDS QUAL NONE DETECTED (NONE DETECT); UR COCAINE QUAL NONE DETECTED (NONE DETECT); UR METHADONE QUAL NONE DETECTED (NONE DETECT); UR OPIATES QUAL NONE DETECTED (NONE DETECT); UR OXYCODONE QUAL NONE DETECTED (NONE DETECT); UR PCP QUAL NONE DETECTED (NONE DETECT)
[2018-10-21] MEDS: MIRALAX PO SCH (11:25)
[2018-10-21 12:04] VITALS: BP 133/71
--- NOTE | 2018-10-21 13:07 | NEPHROLOGY PROGRESS NOTE ---
DATE: 10/21/2018 SUBJECTIVE: The patient is sitting up in bed. He has a nosebleed. He remains somewhat agitated. OBJECTIVE: Vital Signs: Temperature 98.3 degrees, pulse 79, respiratory rate 20, blood pressure 110/71. Intake 864 mL, output 1.7 L. General: This is a middle-aged gentleman , sitting up in bed. He is in no acute distress. HEENT: Normocephalic. LYNDA. Oral mucosa is moist. He has a nosebleed, primarily from the left naris. Neck: Supple. He has some trace JVD. Cardiovascular: Regular rate and rhythm with a gallop. Pulmonary: Clear bilaterally. He is currently on room air. There is no increased work of breathing. Abdomen: Soft with positive bowel sounds. : He continues with 2+ edema, although this does appear softer than yesterday. Integumentary: Skin is warm and dry. Vascular changes noted to bilateral lower extremities. LABORATORY DATA: Sodium 129, potassium 3.7, CO2 of 22, BUN 93, creatinine 4.6 ( 4.5). Phosphorus 5.2. Albumin 3.1. ASSESSMENT AND PLAN: 1. Acute kidney injury secondary to prerenal issues and diuretic requirements. The patient is in negative fluid territory overnight. He does remain on a diuretic holiday and fluid restriction. Renal function with no significant change. I will continue to monitor closely. 2. Electrolytes and acid-base balance and hyponatremia. His sodium had reached 127 on 10/19/2018. It is slowly climbing. It is 129 today. Continue to monitor. 3. Hyperuricemia. He remains on allopurinol at appropriate dose. Will not change this at this time. Dictated by CLAY Waldron for Baron Lemon MD Face to face encounter, data reviewed, discussed with Pradeep Kiran on 10/21/18. I agree with the above assessment and plan of care. cc: MD PILO Marcum
--- NOTE | 2018-10-22 06:11 | DISCHARGE SUMMARY ---
ADMISSION DATE: 10/02/2018 DISCHARGE DATE: 10/21/2018 CONSULTATIONS: 1. Dr. Mccracken with Pulmonology. 2. Dr. Palencia with Cardiology. 3. Dr. Augustine with Orthopedics. 4. Dr. Lemon with Nephrology. PERTINENT PROCEDURES: 1. Initial chest x-ray showed left basilar pleural effusion with adjacent atelectasis and/or infiltrates that appears to be increased during interval. 2. Foot x-ray showed new bony erosion at the tip of the great toe consistent with chronic trauma, avascular necrosis or osteomyelitis. 3. Nuclear bone scan showed minimal increased uptake associated with calcanei that probably relates to mild bone spurring. 4. Extremity venous Doppler showed no evidence of acute deep or superficial venous thrombosis to the left lower extremity. 5. Chest CT increase in the size of the right pleural effusion. 6. Arterial study showed significant bilateral femoral popliteal arterial disease, left is worse than right, which is severe enough to cause claudication symptoms. 7. Ultrasound-guided thoracentesis where they removed 1.9 L. 8. Renal ultrasound showed no renal obstructive obstruction. Right renal cyst nonobstructing. Left renal stone, trace free fluid in the pelvis. 9. Final chest x-ray showed moderate pleural effusions versus smaller pleural effusions with elevated hemidiaphragm on the right. DISCHARGE DIAGNOSES: 1. Acute hypoxemic respiratory failure secondary to acute on chronic systolic congestive heart failure with last known EF 15 to 20 percent. The patient presented with mild pulmonary edema and bilateral effusions. O2 saturations that were 86%. He is status post right-sided thoracentesis where 1.9 L were removed. He was initially dialyzed aggressively with improvement in his respiratory status, but then continued having worsening acute kidney injury. He was initially aggressively diuresed with improvement in respiratory status, but have worsening of acute kidney injury on chronic kidney disease stage 3. The patient has been on a diuretic holiday for the last few days. His creatinine has continued to increase slowly. He has had no urgent need for dialysis, but they suspect he will end up needing dialysis in the near future. He remains in negative fluid territory, and will be on a diuretic holiday as well as fluid restriction. 2. Acute kidney injury on chronic kidney disease. Again, he remains on a diuretic holiday as well as fluid restriction. He will continue to be monitored closely by Nephrology. His electrolytes and acid base are stable. He has had some hyponatremia that is slowly climbing up. 3. Dilated ischemic cardiomyopathy aware. 4. Hyperuricemia. Patient will continue on Allopurinol. 5. Left foot pain. X-ray just shows arthritis. No major pathology. He was evaluated by Dr. Augustine with Orthopedics. 6. Bilateral pleural effusions, right greater than left and status post right thoracentesis. HOSPITAL COURSE: Briefly, Mr. Stewart is a 62-year-old gentleman who is known to have advanced severe dilated ischemic cardiomyopathy. He was discharged from the hospital early last month. He came back on 10/02 mainly because of shortness of breath and worsening edema. He came back on 10/02 mainly because of shortness of breath and worsening edema. However, his kidney function continued to decline throughout his hospital stay secondary to aggressive diuresis. He has been evaluated by multiple subspecialty including Orthopedics, Nephrology, and Cardiology. He was continued on his Coreg and increased his hydralazine as tolerated. He had to be placed on a Lasix holiday per Nephrology given his worsening renal function and continued on fluid restrictions. He did have some reaccumulation of his fluid despite his thoracentesis as well as aggressive diuretics. He has no urgent need for dialysis, but they suspect he will end up needing dialysis in the near future. He will continue to be monitored by Nephrology as well as Cardiology, and will resume p.o. Lasix at home. Continue strict input and output, and daily weights. VITAL SIGNS: Temperature is 97.5 degrees, heart rate 76, respirations 20, blood pressure 133/71, and O2 is 100% on room air. DISCHARGE DIET: Healthy heart 1200 mL fluid restriction. DISCHARGE MEDICATIONS: 1. Rosuvastatin calcium 80 mg p.o. at bedtime. 2. Novolin 70/30 8 units subcutaneous at bedtime. 3. DuoNeb 3 mL inhaled q.4 hours p.r.n. 4. Zyloprim 100 mg p.o. b.i.d. 5. Aspirin 81 mg p.o. daily. 6. PhosLo 667 mg p.o. t.i.d. 7. Carvedilol 12.5 mg p.o. b.i.d. 8. Colcrys 0.3 mg p.o. daily. 9. Vitamin D 38753 units p.o. 7 days. 10. Folic Acid 1 mg p.o. daily. 11. Lasix 80 mg p.o. daily. 12. Neurontin 100 mg p.o. b.i.d. 13. Apresoline 75 mg p.o. t.i.d. 14. Isosorbide dinitrate 60 mg p.o. 3 times a day. 15. MiraLAX 17 g p.o. b.i.d. 16. Ultram 50 mg p.o. b.i.d. p.r.n. FOLLOWUP: Mr. Stewart is being discharged home with self care. He is to take all medications as prescribed. He is to continue to follow up with Dr. Lemon, cardiology and his PCP Dr. Mcdonald. He can return to the ED or call 911 for any worsening of symptoms. Dictated by CLAY Riley for Ezio Rodriguez MD Addendum: Patient seen and examined by myself. Agree with CLAY note. It reflects my assessment and plan. Patient is being discharged from hospital in stable condition. Will be seen by primary care physician in a week. cc: MD Irwin Gallagher MD Reginald D. Gladish, MD Dr. Ball Cesar Garcia-Rodriguez, MD MTDD
== END 2018-10-21 16:41 | disposition home health service (06) | DRG 291 ==
LOC: ED 11:13 → 4N 18:23 → SUATTDRO 18:23
PROVIDERS: ATTEND Internal Medicine
CPT/HCPCS: 32421; 32555; 71010; 71020; 71045; 71046; 71250; 73620; 73630; 76770; 78315; 80048; 80053; 80069; 80101; 80301; 80307; 80320; 80324; 80345; 80346; 80353; 80358; 80361; 80365; 81001; 82055; 82150; 82270; 82306; 82310; 82550; 82570; 82607; 82728; 82746; 82945; 82948; 83036; 83540; 83550; 83615; 83735; 83880; 83970; 83986; 83992; 84100; 84156; 84157; 84300; 84484; 84540; 84550; 85025; 85027; 85045; 85610; 85730; 86850; 86900; 86901; 87070; 87088; 87102; 87116; 87147; 87205; 87206; 87275; 87276; 87804; 88112; 88305; 89050; 89051; 93005; 93923; 93971; 94640; 94761; 94799; 96365; 96375; 97162; 97530; 99284; A9270; A9503; C9113; G0431; G0434; G0479; G0480; G6040; J1650; J1815; J1940; J1956; J3475; P9047; S0164; XXXXX

== ENCOUNTER 2018-11-05 13:00 | Inpatient (IN) ==
[2018-11-05] MEDS ORDERED: SOLU-MEDROL IV ONE (14:53)
[2018-11-05] MEDS ORDERED: DUONEB (A & A) INH ONE (14:53)
--- NOTE | 2018-11-05 14:59 | EKG Report ---
Test Performed on : 11/05/2018 2:11:03 PM Test Reason : SOB Blood Pressure : / mmHG Vent. Rate : 098 BPM Atrial Rate : 098 BPM P-R Int : 138 ms QRS Dur : 108 ms QT Int : 366 ms P-R-T Axes : 035 -30 189 degrees QTc Int : 467 ms Normal sinus rhythm. Left axis deviation Inferior infarct (cited on or before 02-OCT-2018) ST & T wave abnormality, consider lateral ischemia Abnormal ECG When compared with ECG of 02-OCT-2018 11:57, (Unconfirmed) premature ventricular complexes. are no longer present Unconfirmed Result
--- NOTE | 2018-11-05 15:27 | Diag Imaging Result Doc PS360 ---
EXAM: CHEST-1 VIEW INDICATION: SOB, abdominal distention, hx of CHF TECHNIQUE: One view COMPARISON: 10/19/2018 FINDINGS: There is stable elevation of the right hemidiaphragm. There is a small to moderate-sized right pleural effusion with adjacent right basilar atelectasis and/or infiltrate. Is similar to the previous study. The left costophrenic angle is out of the [id number]. The cardiac silhouette is prominent but stable. IMPRESSION: Right basilar atelectasis and/or infiltrate and suggestion of a pleural effusion. Electronically signed by Matthew Loyd 11/05/2018 3:25 PM
[2018-11-05 15:29] LABS: BASO# 0.01 X1000 (0.0-0.2); BASO% 0.2 % (0.0-0.8); EOS# 0.06 X1000 (0.0-0.7); EOS% 1.1 % (0.0-10.0); HEMATOCRIT 29.2 % (42.0-52.0); HEMOGLOBIN 8.4 g/dL (14.0-18.0); LYMPH# 1.62 X1000 (1.2-3.4); LYMPH% 28.8 % (20.5-51.1); MCH 26.2 PG (27-31); MCHC 28.8 g/dL (33-37); MONO# 0.57 X1000 (0.11-0.59); MONO% 10.1 % (1.7-9.3); NEUT# 3.37 X1000 (1.4-6.5); NEUT% 59.8 % (42.2-75.2); PLT 194 X1000 (130-400); RBC 3.21 XMIL (4.7-6.1); RDW 22.4 % (11.5-14.5); WBC 5.63 X1000 (4.8-10.8)
[2018-11-05 15:46] LABS: URINE SOURCE CLEAN CATCH
[2018-11-05 15:49] LABS: BILIRUBIN URINE NEGATIVE (NEGATIVE); BLOOD URINE SMALL (NEGATIVE); COLOR YELLOW; GLUCOSE URINE NEGATIVE (NEGATIVE); KETONE URINE NEGATIVE (NEGATIVE); LEUKOCYTES URINE NEGATIVE (NEGATIVE); NITRITE URINE NEGATIVE (NEGATIVE); PH URINE 6.5; PROTEIN URINE 600 mg/dL (NEGATIVE); SP GRAVITY URINE 1.014; TURBIDITY URINE CLEAR (CLEAR); UROBILINOGEN URINE NORMAL (NORMAL)
[2018-11-05 15:50] LABS: UR EPITHELIAL CELLS <10 /HPF (<10); URINE BACTERIA NEGATIVE /HPF; URINE WBC <10 /HPF (<10)
[2018-11-05 15:53] LABS: ALLEN TEST NO; BE 0.1 mmoll (-3.0-3.0); BLOOD TYPE ARTERIAL; METHB 0.9 % (0.0-1.5); O2(CT) 11.8 mL/dL (15.0-23.0); O2HB 95.8 % (95.0-99.0); PCO2(98.6) 39 mmHg (35-45); PO2(98.6) 146 mmHg (60-100); SAMPLE BLOOD; SAO2 100.3 % (95.0-100.0); THB 8.5 g/dL (11.5-17.4); pH(98.6) 7.41 (7.35-7.45)
[2018-11-05] MEDS ORDERED: LASIX IV ONE (15:54)
[2018-11-05 15:56] LABS: MODALITY CANNULA
[2018-11-05 15:59] LABS: ALB/GLOB RATIO 0.8; ALBUMIN 3.2 g/dL (3.5-5.0); CALCIUM 8.6 mg/dL (8.8-10.2); CREATININE 2.2 mg/dL (0.7-1.2); MAGNESIUM 1.8 mg/dL (1.5-2.7); POTASSIUM 5.9 mmol/L (3.5-5.1); TOTAL BILIRUBIN 0.39 mg/dL (0.20-1.00); TOTAL PROTEIN 7.2 g/dL (6.3-8.3)
[2018-11-05] MEDS ORDERED: KAYEXALATE PO ONE (16:26)
[2018-11-05] MEDS ORDERED: ALBUTEROL 0.5% INH CONC FOR HYPERKALEMIA INH ONE (16:26)
[2018-11-05] MEDS ORDERED: LASIX ONE (16:29)
--- NOTE | 2018-11-05 17:21 | PROVIDER DOCUMENTATION ---
This chart was entered by Lis Velez Scribe, acting as scribe for Sam Mitchell CRNP. HPI-Respiratory General - General Chief Complaint: Shortness of Breath Stated Complaint: SOB, CHF, Edema Time Seen by Provider: 11/05/18 14:34 Source: patient Allergies/Adverse Reactions: Patient Allergies Allergy/AdvReac Type Severity Reaction Status Date / Time No Known Allergies Allergy Verified 10/02/18 12:44 Home Medications: Home Medication List Medication Instructions Recorded Confirmed Last Taken Type Atorvastatin Calcium 80 mg PO HS 02/25/16 10/02/18 06/04/18 20:00 History Hum Insulin NPH/Reg Insulin Hm 8 unit SQ HS 01/29/18 10/02/18 06/04/18 20:00 History [Novolin 70-30 100 Unit/ml Vial] Aspirin 81 mg PO DAILY chewtab 04/22/18 10/02/18 06/05/18 07:00 Rx Folic Acid 1 mg PO DAILY tablet 04/22/18 10/02/18 06/05/18 07:00 Rx Polyethylene Glycol 3350 [Miralax] 17 gm PO BID powder, packet 04/22/18 10/02/18 06/05/18 07:00 Rx Carvedilol 12.5 mg PO BID #60 tab 06/12/18 10/02/18 Unknown Rx Albuterol 2.5MG/Ipratrop 0.5MG 3 ml INH Q4H PRN PRN #30 neb 09/03/18 10/02/18 Unknown Rx [Duoneb (A & A)] Furosemide 80 mg PO DAILY #90 tab 09/03/18 10/02/18 Unknown Rx Tramadol [Ultram] 50 mg PO BID PRN PRN #20 tab 09/03/18 10/02/18 Unknown Rx Allopurinol [Zyloprim] 100 mg PO BID #60 tab 10/21/18 Unknown Rx Calcium Acetate [Phoslo] 667 mg PO TID CC #90 tab 10/21/18 Unknown Rx Colchicine [Colcrys] 0.3 mg PO DAILY #60 tab 10/21/18 Unknown Rx Ergocalciferol (Vitamin D2) 50,000 unit PO Q7D #30 cap 10/21/18 Unknown Rx [Vitamin D] Gabapentin [Neurontin] 100 mg PO BID #60 cap 10/21/18 Unknown Rx Hydralazine [Apresoline] 75 mg PO 0900,1500,2100 #90 tab 10/21/18 Unknown Rx Isosorbide Dinitrate [Isordil] 60 mg PO 0900,1500,2100 #90 tab 10/21/18 Unknown Rx - History of Present Illness-Resp Nature of Presenting Problem: 62 y/o male presents to ED with SOB, bilateral lower leg swelling, and abdominal swelling that began today. Pt reports he was discharged from the hospital 1 week ago. Pt is alert and oriented and non-toxic in appearance. Den ies chest pain, fever, or SOB. Quality of Pain: reports: none Severity in ED: reports: mild Onset/Duration: reports: unsure Timing: reports: still present Context: reports: other (CHF) Exposure: reports: other (CHF) Cough Quality/Degree: reports: no cough Episode Frequency: chronic episodes (CHF) Current Respiratory Medication Therapy: Initiated see nurses note Modifying Factors: improves with: nothing Associated Symptoms: reports: shortness of breath, short of breath, other (leg swelling; abdominal bloating) Similar Symptoms Previously?: No Recently seen or treated by another doctor?: No Review of Systems - Adult - REVIEW OF SYSTEMS - ADULT Constitutional: denies: chills, fever Eyes: reports: no symptoms reported Ears, Nose, Mouth & Throat: reports: no symptoms reported Cardiovascular: denies: chest pain, palpitations Respiratory: reports: shortness of breath. denies: cough Gastrointestinal: reports: other (abdominal bloating). denies: abdominal pain, diarrhea, nausea, vomiting Genitourinary: reports: no symptoms reported Musculoskeletal: reports: other (leg swelling). denies: back pain, joint pain Integumentary: reports: no symptoms reported Neurological: denies: dizziness/vertigo, seizure Psychiatric: reports: no symptoms reported Endocrine: reports: no symptoms reported Hematologic/Lymphatic: reports: no symptoms reported Allergic/Immunologic: reports: no symptoms reported All Other Systems: Reviewed and Negative Past History - Adult - PAST MEDICAL HISTORY-ADULT Review of Records: reports: Old Records Reviewed, Nursing Assessment Review, Medications Reviewed Major Childhood Illnesses: reports: denies history Cardiovascular: reports: CAD, CHF, HTN, hyperlipidemia Respiratory: reports: denies history, COPD Gastrointestinal: reports: denies history Obstetrical/Gynecological: reports: denies history Genitourinary: reports: denies history Musculoskeletal: reports: denies history Neurological: reports: CVA Endocrine/Immune: reports: Diabetes Other Conditions: reports: denies history - PRIOR SURGERIES/PROCEDURES Surgical/Procedure History: reports: appendectomy, CABG, cholecystectomy, cardiac stent - IMMUNIZATION STATUS Childhood Immunizations: See Nurse Assessment Flu Vaccine: See Nurse Assessment - FAMILY HISTORY Family History: reviewed, not pertinent - SOCIAL HISTORY Smoking: quit less than 1 year Substance Use: none presently/history of abuse, alcohol Alcohol Use Frequency: sober (former use) Living Situation: family Physical Exam-General - PHYSICAL EXAM-ADULT Initial Vital Signs Reviewed: Yes - CONSTITUTIONAL General Appearance: alert, mild distress. negative: lethargic, slow to respond - EYES Eyes: PERRL/EOMI, pink conjunctivae - HEAD, EARS, NOSE, MOUTH & THROAT HENMT: normocephalic/atraumatic, moist mucous membranes, normal ENT inspection - NECK Neck: non-tender, full range of motion, supple, normal inspection - RESPIRATORY Respiratory: chest non-tender, lungs clear, no pleuratic chest pain, no respiratory distress, no accessory muscle use, other (Lung sounds diminshed bilaterally.) - CARDIOVASCULAR Cardiovascular: normal peripheral pulses, regular rate, rhythm, no gallop, no murmur, JVD, other (3+ pitting edema bilateral lower extremities noted on exam. Legs not weeping at this time.) - GASTROINTESTINAL (ABDOMEN) Abdominal Exam: normal bowel sounds, soft, no organomegaly, distended, tender ness (diffuse) - MUSCULOSKELETAL Back Exam: normal inspection, no CVA tenderness Extremity: normal range of motion, non-tender, normal capillary refill, swelling (bilateral lower extremities). negative: calf tenderness, slow capillary refill Peripheral Pulses: radial (R): 3+, radial (L): 3+, dorsalis-pedis (R): 2+, dorsalis-pedis (L): 2+ - SKIN Integumentary: normal color, warm/dry. negative: cyanosis, diaphoresis, jaundice, mottled, pallor - NEUROLOGIC Neurologic: grossly normal, no motor/sensory deficits - PSYCHIATRIC Psych/Mental Status: normal mood/affect, normal thought content, normal thought process, oriented x 3 - HEART Score HEART Score: History: Moderately Suspicious HEART Score: ECG: Non-Specific Repolarization Disturbance/LBBB/PM HEART Score: Age: 45-65 Years HEART Score: Risk Factors for Atherosclerotic Disease: > or = 3 Risk Factors or History of Atherosclerotic Disease HEART Score: Troponin: < or = Normal Limit Total HEART Score:: 5 Progress - PLAN OF CARE/RESULTS Progress/Plan/Lab Results: Vital Signs - 8 hr 11/05/18 13:27 11/05/18 13:32 11/05/18 14:30 Temperature 97.4 F L Pulse Rate 110 H 98 H 98 H Respiratory Rate 23 19 23 Blood Pressure 152/93 152/93 O2 Sat by Pulse Oximetry 100 11/05/18 14:40 11/05/18 15:40 11/05/18 15:47 Temperature Pulse Rate 98 H 97 H 98 H Respiratory Rate 29 H 15 28 H Blood Pressure O2 Sat by Pulse Oximetry 100 Laboratory Results - last 24 hr 11/05/18 11/05/18 11/05/18 13:29 14:20 14:20 WBC RBC Hgb Hct MCV MCH MCHC RDW Std Deviation Plt Count MPV Immature Gran % (Auto) Neut % (Auto) Lymph % (Auto) [place] % (Auto) Eos % (Auto) Baso % (Auto) Immature Gran # (Auto) Neut # (Auto) Lymph # (Auto) [place] # (Auto) Eos # (Auto) Baso # (Auto) Specimen Type Sample Site pH pCO2 pO2 HCO3 Base Excess Oxyhemoglobin ABG O2 Sat (Calculated) ABG O2 Saturation ABG Carboxyhemoglobin ABG Methemoglobin Randall Test A-a O2 Difference Total Hemoglobin Lactate Liter Flow Blood Gas Modality FiO2 % Sodium 144 Potassium 5.9 H Chloride 109 H Carbon Dioxide 22 L Anion Gap 13 BUN 38 H Creatinine 2.2 H Estimated GFR/1.73 m2 37 BUN/Creatinine Ratio 17 Glucose 148 H Calculated Osmolality 299 Calcium 8.6 L Magnesium 1.8 Total Bilirubin 0.39 AST 21 ALT 19 Alkaline Phosphatase 203 H Creatine Kinase 84 Troponin T 0.082 Ebq-S-[id number] Pept Total Protein 7.2 Albumin 3.2 L Globulin 4.0 Albumin/Globulin Ratio 0.8 Urine Source CLEAN CATCH Urine Color YELLOW Urine Turbidity CLEAR Urine pH 6.5 Ur Specific [place] 1.014 Urine Protein 600 A Ur Glucose (Stick) NEGATIVE Ur Ketones (Stick) NEGATIVE Urine Blood SMALL A Urine Nitrite NEGATIVE Urine Bilirubin NEGATIVE Urobilinogen Dipstick NORMAL Urine Leukocytes NEGATIVE Urine WBC (Auto) <10 Urine RBC (Auto) 10-20 A U Epithel Cells (Auto) <10 Urine Bacteria (Auto) NEGATIVE 11/05/18 11/05/18 11/05/18 14:20 14:20 14:45 WBC 5.63 RBC 3.21 L Hgb 8.4 L Hct 29.2 L MCV 91.0 MCH 26.2 L MCHC 28.8 L RDW Std Deviation 22.4 H Plt Count 194 MPV 12.0 H Immature Gran % (Auto) 0.0 Neut % (Auto) 59.8 Lymph % (Auto) 28.8 [place] % (Auto) 10.1 H Eos % (Auto) 1.1 Baso % (Auto) 0.2 Immature Gran # (Auto) 0.00 Neut # (Auto) 3.37 Lymph # (Auto) 1.62 [place] # (Auto) 0.57 Eos # (Auto) 0.06 Baso # (Auto) 0.01 Specimen Type ARTERIAL Sample Site L BRACHIAL pH 7.41 pCO2 39 pO2 146 H HCO3 25.0 Base Excess 0.1 Oxyhemoglobin 95.8 ABG O2 Sat (Calculated) 11.8 L ABG O2 Saturation 100.3 H ABG Carboxyhemoglobin 3.60 H ABG Methemoglobin 0.9 Randall Test NO A-a O2 Difference 19.0 Total Hemoglobin 8.5 L Lactate 0.90 Liter Flow 2.5 Blood Gas Modality [place] FiO2 % 30.0 Sodium Potassium Chloride Carbon Dioxide Anion Gap BUN Creatinine Estimated GFR/1.73 m2 BUN/Creatinine Ratio Glucose Calculated Osmolality Calcium Magnesium Total Bilirubin AST ALT Alkaline Phosphatase Creatine Kinase Troponin T [id number]-Mypnnvvjlef Pept > 77414 H Total Protein Albumin Globulin Albumin/Globulin Ratio Urine Source Urine Color Urine Turbidity Urine pH Ur Specific [place] Urine Protein Ur Glucose (Stick) Ur Ketones (Stick) Urine Blood Urine Nitrite Urine Bilirubin Urobilinogen Dipstick Urine Leukocytes Urine WBC (Auto) Urine RBC (Auto) U Epithel Cells (Auto) Urine Bacteria (Auto) Orders Category Date Time Status Cardiac Monitoring DIRECTED Care 11/05/18 14:53 Active Vital Signs Order Q30M Care 11/05/18 14:53 Active CHEST-1 VIEW [RAD] Stat Exams 11/05/18 14:53 Completed ABG [RESP] Routine Lab 11/05/18 14:45 Completed CBC WITH DIFF [HEME] Stat Lab 11/05/18 14:20 Completed CK PROFILE [SP CHEM] Stat Lab 11/05/18 14:20 Completed COMPREHENSIVE METABOLIC PANEL [CHEM] Stat Lab 11/05/18 14:20 Completed MAGNESIUM [CHEM] Stat Lab 11/05/18 14:20 Completed PRO B-NATRIURETIC PEPTIDE Stat Lab 11/05/18 14:20 Completed TROPONIN T Stat Lab 11/05/18 14:20 Completed UA NIMS W/REFLEX CULT [URINALYSIS] Stat Lab 11/05/18 13:29 Completed Albuterol 0.5% INH Conc [Albuterol 0.5% INH Conc For Med 11/05/18 16:26 Discontinued Hyperkalemia] 25 mg INH NOW ONE Albuterol 2.5MG/Ipratrop 0.5MG [Duoneb (A & A)] Med 11/05/18 14:53 Discontinued 3 ml INH NOW ONE Furosemide [Lasix] Med 11/05/18 16:29 Discontinued 40 mg .ROUTE .STK-MED ONE Furosemide [Lasix] Med 11/05/18 15:54 Discontinued 40 mg IV NOW ONE Methylprednisolone Sod Succ [Solu-Medrol] Med 11/05/18 14:53 Discontinued 125 mg IV NOW ONE Sodium Polystyrene [Kayexalate] Med 11/05/18 16:26 Discontinued 15 gm PO NOW ONE Aerosol Treatments Routine Oth 11/05/18 14:53 Completed Aerosol Treatments Routine Oth 11/05/18 16:27 Completed Aerosol Treatments Stat Oth 11/05/18 14:53 Completed Aerosol Treatments Stat Oth 11/05/18 16:27 Completed EKG [EKG] Stat Ther 11/05/18 14:51 Draft Anemia stable as compared to prior. 1633- Admitting HPS paged. 1708- HPS re-paged for admission. 1719- Spoke with Clarita and discussed possibility of pneumonia versus edema due to CHF on chest x ray. Pt denies cough or fever, WBC count wnl. Will not order blood cultures or abx at this time. Result Diagrams: 11/05/18 14:20 11/05/18 14:20 - EKG 1 Time of EKG reading by physician:: 14:11 EKG Read and Signed by:: Rui Koehler EKG Interpretation (*Must complete 3 of following elements*): Abnormal Rate: 98 Rhythm: NSR [place]: normal QRS: other (inferior infarct) OR Interval: normal ST Wave: non-specific ST changes (consider lateral ischemia) - XRAY 1 XRAY Study: Chest Impression: Abnormal (FINDINGS: There is stable elevation of the right hemidiaphragm. There is a small to moderate-sized right pleural effusion with adjacent right basilar atelectasis and/or infiltrate. Is similar to the previous study. The left costophrenic angle is out of the [id number]. The cardiac silhouette is prominent but stable. IMPRESSION: Right basilar atelectasis and/or infiltrate and suggestion of a pleural effusion. Electronically signed by Matthew Loyd 11/05/2018 3:25 PM) - CONSULTS/PCP/HOSPITALIST Notification #1 *Consult/PCP/Hospitalist*: CLAY Otto for hospitalist Time Discussed: 17:15 Consult Disposition: Admit (No further orders recommended at this time.) Departure - Departure Date of Disposition Decision: 11/05/18 Time of Disposition Decision: 17:20 DIAGNOSIS: SOB (shortness of breath), Abdominal distention, Hypoxia CHF exacerbation Qualifiers: Heart failure type: unspecified Qualified Code(s): I50.9 - Heart failure, unspecified Edema Qualifiers: Edema type: unspecified Qualified Code(s): R60.9 - Edema, unspecified Disposition: ADMITTED INPATIENT 09 Certified Medical Emergency: Emergent Condition: Stable Referrals and Follow-Ups: Sanchez Mcdonald MD [Primary Care Provider] - - Critical Care Note This patient required my direct & personal management of CC.: No Attestation - Physician/ EUGENIO Attestation Patient care was provided by Advanced Practice Provider:: Yes Advanced Practice Provider:: Sam Mitchell Advanced Practice Provider documentation review:: The Mid-level provider documentation, treatment plan and medical decision making was reviewed by the physician who agrees with all treatment and medical decision making by the [facility]. The physician spent face to face time with patient:: No Advanced Practice Provider documentation review:: Supervising physician onsite and consulted in the evaluation and care of this patient. The physician did not have a face to face encounter with the patient. This chart was documented by the indicated scribe, (Lis Velez Scribe) and accurately reflects the services I performed and decisions made by me, Sam Mitchell CRNP, as attested by the provider's signature.
--- NOTE | 2018-11-05 19:19 | Diag Imaging Result Doc PS360 ---
CT THORAX W/O CONTRAST - 11/05/2018 INDICATION: sob; right pleural effusion COMPARISON: 10/13/2018 FINDINGS: There has been increase in size of the right pleural effusion which is rather large, measuring about 7.8 cm in depth at the ryan. There is severe cardiomegaly. Anemia is present. There is severe body wall edema. There is a trace left pleural effusion. There is mild interstitial pulmonary edema. There are moderate degenerative changes of the spine. No acute or suspicious bony lesion. IMPRESSION: 1. Slight increase in size of the large right pleural effusion. 2. Cardiomegaly and interstitial pulmonary edema. Trace left pleural effusion. Severe body wall edema. This exam was performed using automated exposure control, adjustment of mA or kV according to patient size, and/or use of iterative reconstruction technique Electronically signed by Power Peralta 11/05/2018 7:17 PM
[2018-11-05 19:27] LABS: UR AMPHETAMINES QUAL NONE DETECTED (NONE DETECT); UR BARBITUATES QUAL NONE DETECTED (NONE DETECT); UR BENZODIAZEPIN QUAL NONE DETECTED (NONE DETECT); UR CANNABINOIDS QUAL NONE DETECTED (NONE DETECT); UR COCAINE QUAL NONE DETECTED (NONE DETECT); UR METHADONE QUAL NONE DETECTED (NONE DETECT); UR OXYCODONE QUAL NONE DETECTED (NONE DETECT); UR PCP QUAL NONE DETECTED (NONE DETECT)
[2018-11-05 19:39] LABS: UR OPIATES QUAL NONE DETECTED (NONE DETECT)
[2018-11-05] MEDS: ROCEPHIN 1 GM in NS 50 ML IV SCH (20:10)
--- NOTE | 2018-11-05 21:23 | HISTORY AND PHYSICAL ---
PRIMARY CARE PROVIDER: Dr. Sanchez Mcdonald. PRIMARY TANBARK LABORER: Dr. Ld Ortiz. CHIEF COMPLAINT: Shortness of breath and worsening swelling of the abdomen and lower extremities. HISTORY OF PRESENT ILLNESS: Mr. Lyndon Stewart is a 62-year-old male with a medical history of severe ischemic cardiomyopathy and an ejection fraction of 15% to 20% per echocardiogram from August 2018, severe coronary artery disease, hypertension, hyperlipidemia, diabetes mellitus, medical noncompliance, history of cocaine abuse, and frequent thoracentesis of a right pleural effusion. He now presents with the same complaints that he presented with back in September of shortness of breath and worsening swelling in his abdomen and lower extremities. He states that he is not a person that weighs himself daily, but according to him he says he has gained 8-10 pounds over the last 2-3 days. Description of food that he takes in tends to be higher in sodium, like sausage and potato soup. He claims he is taking his medications as prescribed. He has not followed up with any physician since discharge. He has to sit in a chair for sleep at night. He does say he has a nonproductive cough with fever and chills. Although white blood cell count is normal, there is imaging that could question some infiltrates in the right base. Will admit to the medical floor with acute congestive heart failure and right pleural effusion that is back. Will consult Cardiology. He did have some mild hypoxemia with O2 saturation in the 86% range on room air, and was placed on 2 liters nasal cannula, which brought him back up to the 90s on his saturation. He is sitting comfortably in bed. He previously was sitting on the side of the bed after having a bowel movement. He does have JVD, a significant amount of edema in the abdomen and lower extremities, and he has decreased breath sounds on the right, so we will admit to monitor and treat. PAST MEDICAL HISTORY: 1. Severe ischemic cardiomyopathy with systolic congestive heart failure and ejection fraction of 25% to 20%. 2. Severe CAD. 3. Hypertension. 4. Hyperlipidemia. 5. Diabetes mellitus type 2. 6. Medical noncompliance. 7. History of cocaine abuse. 8. Recurrent right pleural effusions that have required thoracenteses. 9. Gout. 10.Folic acid deficiency. 11.Constipation. 12.COPD. 13.CKD stage 3. PAST SURGICAL HISTORY: 1. Multiple thoracenteses. In reviewing how many, he had one in March 2018, May 2018, July 2018, August 2018, and again in September 2018. 2. Coronary stenting on multiple occasions. 3. Right foot surgery. SOCIAL HISTORY: He quit smoking in 2018. Prior to that he smoked 1 pack per day for several years. Denies alcohol or illicit drug use. FAMILY HISTORY: Positive for CAD. ALLERGIES: No known drug allergies. HOME MEDICATIONS: Not fully verified, but what is listed from September discharge was: 1. Atorvastatin 80 mg p.o. nightly. 2. NovoLog 70/30, 8 units subcutaneously nightly. 3. Apresoline 75 mg p.o. t.i.d. 4. Aspirin 81 mg p.o. daily. 5. Coreg 12.5 p.o. twice daily. 6. Colchicine 0.3 mg p.o. daily. 7. Albuterol/Atrovent nebulizers every 4 hours p.r.n. 8. Folic acid 1 mg p.o. daily. 9. Furosemide 80 mg p.o. daily. 10.Isosorbide dinitrate 60 mg p.o. 3 times a day. 11.MiraLAX 17 grams p.o. twice daily 12.Neurontin 100 mg p.o. twice daily 13.Phos-Lo 667 mg p.o. t.i.d. 14.Ultram 50 mg p.o. twice daily p.r.n. 15.Vitamin D2 at 50,000 units p.o. every 7 days. 16.Allopurinol 100 mg p.o. twice daily. REVIEW OF SYSTEMS: A 14-point review of systems was completed and was all negative except for those mentioned above in the HPI. He is difficult to get information from. PHYSICAL EXAMINATION: VITAL SIGNS: Temperature 97.4, heart rate 98, respiratory rate 15, blood pressure 152/93, O2 saturation 100% on 2.5 L nasal cannula. GENERAL: Mr. Lyndon Stewart is a 62-year-old male. He is in no acute distress. He is able to answer questions appropriately. HEENT: Atraumatic, normocephalic. Pupils equal, round, and reactive to light. Extraocular movements intact. Mucous membranes are moist. NECK: Trachea midline. CARDIOVASCULAR: S1 and S2, regular rate and rhythm. No rubs, gallops or murmurs. He has +1 dorsalis pedis pulses plus radial pulses. Positive JVD. Negative for carotid bruits. He has lower extremity edema that is about a 3, also with abdomen edema as well. PULMONARY: Clear to auscultate. Mild fine crackles in the bases. Decreased in the right base anteriorly with mild shortness of breath with speech, tolerating 2.5 L. GI: Soft and tender in all four quadrants to palpation. Positive bowel sounds x4. EXTREMITIES: Moves all four extremities equally. Decreased range of motion. Decreased strength, but generalized has more of a 4 strength in all extremities, almost to 5. NEUROLOGIC: Alert and oriented x3. Follows commands. Decreased sensory in the lower extremities. SKIN: Warm, dry and intact. Peeling feet and a little bit of ooze on the left vazquez. LABORATORY DATA: White blood cells 5000, hemoglobin 8, hematocrit 29, platelet count 194. ABGs on 2.5 L showed a pH of 7.41, pCO2 of 39, pO2 of 146, bicarb 25, base excess 0.1, saturation 100%. Lactate 0.9. Sodium 144, potassium 5.9, BUN 38, creatinine 2.2, glucose 148. Calcium 8.6, magnesium 1.8. Bilirubin 0.39, AST 21, ALT 19. CK 84, troponin 0.082, ProBNP greater than 35,000. Albumin 3.2. Urinalysis: 600 protein, small blood, 10-20 red blood cells. IMAGING: Chest x-ray: Right basilar atelectasis and/or infiltrates, and has a pleural effusion that is moderate in size. EKG: Normal sinus rhythm, rate 98, QTc 467. ASSESSMENT/PLAN: 1. Acute on chronic systolic congestive heart failure with severe ischemic cardiomyopathy and an ejection fraction of 15% to 20%, in combination with noncompliance with diet and possibly even medication. Continues to have a right pleural effusion. He has received 40 of IV Lasix in the emergency room. Will continue with 40 IV twice a day. Will consult Cardiology. Decrease his beta surya from Coreg 12.5 to 6.25 twice a day. 2. History of severe coronary artery disease but denies any chest pain. 3. Recurrent right pleural effusion with multiple thoracenteses. Chest x-ray shows a moderate size. Will get a chest CT to fully evaluate if there is a need for thoracentesis. 4. Mild hypoxemic respiratory failure/insufficiency with history of chronic obstructive pulmonary disease. No home O2. Saturations were mid-80s on room air, and improved immediately with oxygen. He does complain of some subjective fever and chills, although white count is normal. There are some questionable infiltrates, so we will go ahead and do Rocephin. Will end nebulizers. I will consult Dr. Mccracken, as he does continue to have a recurrent pleural effusion on the right. 5. Hypertension. Continue medications. 6. Hyperlipidemia. Continue statin. 7. Diabetes mellitus type 2. Will do pattern blood glucoses and sliding-scale insulin. 8. Chronic kidney disease stage 3. Creatinine is 2.2, which is actually better than September, when he was up in the 4s. He was followed by Dr. Lemon at that time. Will continue to monitor. 9. Hyperkalemia. Again got Lasix. He also got Kayexalate, and will do a potassium recheck later. 10.Folic acid deficiency. Continue with folic acid. 11.Gout. Continue colchicine and allopurinol. May have to stop it given the kidney function, if it worsens. 12.Constipation history. He has been on MiraLAX, and he actually had a bowel movement on admission. 13.Had a new bony erosion at the tip of the great toe consistent with chronic trauma, avascular necrosis or osteomyelitis on his last visit. This is not evident now on the left foot, but he was seen by Orthopaedics, Dr. Augustine, on his last admission for it. 14.Deep venous thrombosis prophylaxis, heparin 5000 units subcutaneously twice a day. Dictated by CLAY Resendiz for Vipin Zhao MD cc: CLAY Resendiz MD Hiteshri S. Bhavsar, MD Peter Johnson, MD Patient seen and examined . I agree with the assessment and plan of the CLAY. Dr. Zhao. [facility]
[2018-11-05] MEDS ORDERED: INSULIN PEN NEEDLES ONE (22:10)
[2018-11-05] MEDS: MIRALAX PO SCH (22:25)
[2018-11-05] MEDS: ZYLOPRIM PO SCH (22:26)
[2018-11-05] MEDS: APRESOLINE PO SCH (22:26)
[2018-11-05] MEDS: COREG PO SCH (22:26)
[2018-11-05] MEDS: ISORDIL PO SCH (22:26)
[2018-11-05] MEDS: LIPITOR PO SCH (22:27)
[2018-11-05] MEDS: NEURONTIN PO SCH (22:27)
[2018-11-05] MEDS: LASIX IV SCH (22:27)
[2018-11-05] MEDS: HEPARIN SUBQ SCH (22:27)
[2018-11-05] MEDS: HUMULIN 70/30 SUBQ SCH (22:27)
[2018-11-05] MEDS: VITAMIN D PO SCH (22:27)
[2018-11-05] MEDS: HUMULIN R SUBQ SCH (22:28)
[2018-11-05] MEDS: DUONEB (A & A) INH SCH (22:51)
[2018-11-05] MEDS: PULMICORT INH SCH (22:52)
[2018-11-06] MEDS: DUONEB (A & A) INH SCH ×4 (03:15→22:56)
[2018-11-06] MEDS: ULTRAM PO PRN (03:21)
[2018-11-06] MEDS: HUMULIN R SUBQ SCH ×4 (06:46→21:01)
--- NOTE | 2018-11-06 07:38 | EKG Report ---
Test Performed on : 11/06/2018 07:22:41 AM Test Reason : chf Blood Pressure : / mmHG Vent. Rate : 079 BPM Atrial Rate : 079 BPM P-R Int : 110 ms QRS Dur : 108 ms QT Int : 420 ms P-R-T Axes : 009 -18 198 degrees QTc Int : 481 ms Sinus rhythm. with short OK Cannot rule out Inferior infarct (cited on or before 02-OCT-2018) T wave abnormality, consider lateral ischemia Abnormal ECG When compared with ECG of 05-NOV-2018 14:11, (Unconfirmed) No significant change was found Unconfirmed Result
[2018-11-06 08:02] LABS: INR 1.14; PROTIME 15.5 Seconds (11.0-16.0)
[2018-11-06 08:03] LABS: PTT 55.5 Seconds (22.3-41.8)
[2018-11-06 08:19] LABS: EOS# 0.04 X1000 (0.0-0.7); EOS% 1.1 % (0.0-10.0); HEMATOCRIT 28.6 % (42.0-52.0); HEMOGLOBIN 8.1 g/dL (14.0-18.0); LYMPH# 0.56 X1000 (1.2-3.4); LYMPH% 15.8 % (20.5-51.1); MCH 25.9 PG (27-31); MCHC 28.3 g/dL (33-37); MCV 91.4 FL (81-99); MONO# 0.12 X1000 (0.11-0.59); MONO% 3.4 % (1.7-9.3); MPV 11.7 FL (7.4-10.4); NEUT# 2.82 X1000 (1.4-6.5); NEUT% 79.7 % (42.2-75.2); PLT 163 X1000 (130-400); RBC 3.13 XMIL (4.7-6.1); RDW 22.4 % (11.5-14.5); WBC 3.54 X1000 (4.8-10.8)
[2018-11-06 08:20] LABS: ALB/GLOB RATIO 0.8; CALCIUM 8.9 mg/dL (8.8-10.2); CREATININE 2.2 mg/dL (0.7-1.2); MAGNESIUM 1.6 mg/dL (1.5-2.7); TOTAL BILIRUBIN 0.41 mg/dL (0.20-1.00)
[2018-11-06] MEDS: ISORDIL PO SCH ×3 (08:27→20:57)
[2018-11-06] MEDS: PHOSLO PO SCH ×3 (08:27→17:30)
[2018-11-06] MEDS: COLCRYS PO SCH (08:27)
[2018-11-06] MEDS: COREG PO SCH ×2 (08:28→20:58)
[2018-11-06] MEDS: NEURONTIN PO SCH ×2 (08:29→21:01)
[2018-11-06] MEDS: ZYLOPRIM PO SCH ×2 (08:29→20:58)
[2018-11-06] MEDS: APRESOLINE PO SCH ×3 (08:30→20:58)
[2018-11-06] MEDS: ASPIRIN PO SCH (08:30)
[2018-11-06] MEDS: HEPARIN SUBQ SCH ×2 (08:31→20:56)
[2018-11-06] MEDS: FOLIC ACID PO SCH (08:31)
[2018-11-06 08:48] LABS: LYMPHS 28 % (21-51); SEGS 72 % (42-75)
[2018-11-06 09:07] LABS: POTASSIUM 5.6 mmol/L (3.5-5.1)
--- NOTE | 2018-11-06 09:37 | Diag Imaging Result Doc PS360 ---
CHEST-2 VIEWS - 11/06/2018 INDICATION: sob; chf COMPARISON: 11/05/2018 FINDINGS: There is a moderately large right basilar pleural effusion essentially stable from prior. No new findings. IMPRESSION: Moderately large right basilar pleural effusion. Electronically signed by Power Peralta 11/06/2018 9:35 AM
[2018-11-06] MEDS ORDERED: KAYEXALATE PO ONE ×2 (09:47→13:25)
[2018-11-06] MEDS: MIRALAX PO SCH ×2 (10:08→21:02)
[2018-11-06] MEDS: PULMICORT INH SCH ×2 (11:05→22:57)
[2018-11-06] MEDS: LASIX IV SCH ×2 (11:59→20:56)
--- NOTE | 2018-11-06 13:44 | PROGRESS NOTE ---
DATE: 11/06/2018 SUBJECTIVE: The patient is resting comfortable in bed. Not in any obvious distress. OBJECTIVE: Vital Signs: Temperature is 98.4 degrees, pulse 77, respiratory rate is 17, blood pressure is 132/66, oxygen pressure is 99%. HEENT: Atraumatic, normocephalic. Neck: She has jugular venous distention. Cardiovascular: S1, S2. Respiratory System: Clear to auscultation. Abdomen: Full, distended. No masses felt. Extremities: She has 2 to 3+ edema in both lower extremities. Central Nervous System: No obvious focal deficit noted. LABS: WBC is 3.54, hematocrit 28.6, with a platelet count of 160,000. Sodium is 141, potassium 5.6, chloride is 102, bicarb is 23, BUN is 40, creatinine is 2.2. IMAGING: X-ray chest shows a moderately large right basilar pleural effusion. ASSESSMENT AND PLAN: 1. Acute systolic congestive heart failure. Maintain patient on diuretics. Monitor intakes and outputs as well as daily weights. Cardiology already consulted. 2. Coronary artery disease. Asymptomatic. Continue aspiri, beta surya with statin. 3. Right pleural effusion. Consult with Pulmonology. 4. Hypertension. Continue current regimen. 5. Hyperlipidemia. Continue statin. 6. Diabetes mellitus type 2. Monitor blood sugar levels. Maintain patient on sliding scale insulin. 7. Chronic kidney disease. Consult with Nephrology. 8. Hyperkalemia. Will give a dose of Kayexalate now and repeat potassium level. 9. Folic acid deficiency. Continue folate. 10. Gout. Maintain patient on allopurinol with dose adjusted for renal function. 11. Deep vein thrombosis prophylaxis. Heparin. cc: Vipin Zhao MD [facility]
[2018-11-06] MEDS ORDERED: DOBUTAMINE 500/D5W 500 MG/250 ML IV.SOLN IV SCH (14:00)
--- NOTE | 2018-11-06 14:51 | CARDIOLOGY CONSULTATION ---
DATE: 11/06/2018 SUBJECTIVE: Patient is admitted with congestive heart failure. He has severe LV dysfunction, ejection fraction of 15 to 20 percent. He was recently admitted and discharged. He has undergone thoracentesis right-sided as well. Patient comes with complaints of increasing shortness of breath, pedal edema and orthopnea. The patient was admitted. He has history of noncompliance as well. However he has gained about 8 to 10 pounds in weight. He also has been noncompliant as far as his sodium intake is concerned. However he states that he has been taking his medications regularly. He denies chest pain, complains of significant shortness of breath. Since being admitted to the hospital he has improved. He does not complain of any palpitations. There is no dizziness or syncope. PAST MEDICAL HISTORY: 1. Severe ischemic cardiomyopathy ejection fraction of 20% to 25%. 2. Coronary artery disease, PCI and drug-eluting stent to the right coronary artery 08/07/2017. 3. Old myocardial infarction. 4. Thoracentesis right-sided 2 L removed. 5. Hypertension. 6. Hyperlipidemia. 7. Diabetes. 8. Chronic renal insufficiency. 9. Peripheral vascular disease, history of stenting to the right superficial femoral artery. 10. The patient has multiple paracentesis in March 2018, May 2018, July 2018, August and September 2018. 11. He quit smoking 2017, used to smoke a pack of cigarettes for many years. HOME MEDICATIONS: Insulin 70/30, 8 units at night, hydralazine 75 mg p.o. t.i.d., aspirin 81, Coreg 12.5 b.i.d., colchicine 0.3, Lasix 80 mg a day, isosorbide dinitrate 60 t.i.d., Ultram, vitamin D, allopurinol. REVIEW OF SYSTEMS: Fourteen point review of system was done.GI: There is no history of nausea, vomiting, diarrhea. There is no history of hematemesis or melena. Central nervous system: No focal weakness to suggest a CVA or TIA. Her blood pressure was 150/90. Jugular venous pressure was elevated. First and second heart sounds were heard. There was S3 gallop. Respiratory: Dullness right side with inspiratory crackles. Abdomen: Obese, soft. There was no guarding or rigidity. Bowel sounds were heard. Central nervous system: Alert, oriented and was moving all 4 extremities. Extremities: Revealed bilateral pitting edema up to his knees. DATA: Chest CT revealed large right pleural effusion in addition to heart failure. ASSESSMENT AND PLAN: Mr. Lyndon Stewart is 62-year-old -Chinese gentleman with ischemic cardiomyopathy, recurrent congestive heart failure, hypertension, diabetes coronary artery disease status post stent placement to right coronary artery in the past comes in with complaints of increasing pedal edema, orthopnea and anasarca. The patient has chronic renal insufficiency as well. Creatinine around 2. PLAN: 1. We will set him up for a thoracentesis of his right pleural effusion. 2. As far as medications are concerned, he is on Coreg 12.5 mg, in addition to hydralazine 75 t.i.d. and isosorbide dinitrate. We have not added NAM inhibitors in the past given his chronic renal insufficiency. However I will try him on Entresto and we will see what his renal function does. If his renal function is stable we will continue that. 3. He is on Lasix 80 mg twice a day. I have not made any changes at the present time. 4. Diabetes, continue with his current medications. 5. He has severe nonischemic cardiomyopathy. His electrocardiogram revealed normal sinus rhythm, nonspecific ST-T changes. There was no acute changes to suggest ischemia or infarction. There was no change from previous electrocardiogram. The patient will be a candidate for automatic implanted cardioverter-defibrillator placement as an outpatient. cc: Joseph Quintanilla MD
[2018-11-06] MEDS: ENTRESTO 24 MG-26 MG TABLET PO SCH ×2 (15:18→20:58)
[2018-11-06 15:53] LABS: UR CREAT RANDOM 65.2 mg/dL (14-26); UR PROT RANDOM 235.8 mg/dL
--- NOTE | 2018-11-06 16:17 | NEPHROLOGY CONSULTATION ---
DATE: 11/06/2018 REASON FOR ADMISSION: Increased work of breathing with lower extremity swelling and abdominal distention. REASON FOR CONSULTATION: Acute kidney injury with decreased urinary output with chronic kidney disease stage III. CONSULTING PHYSICIAN: Dr. Zhao. HISTORY OF PRESENT ILLNESS: Mr. Stewart is a 62-year-old male, who had been seen by our practice on his last 2 admissions in August and September. The patient was subsequently discharged at the end of September. He was admitted with ischemic cardiomyopathy and ejection fraction of 15 to 20 percent on an echocardiogram from August's admission of 2018. The patient had problems with increased work of breathing, worsening of swelling in his abdomen and lower extremities. He has been unable to weigh himself, though it appears that he has gained 8 to 10 pounds again leading to his current admission. His description of food on his previous history stated that he eats a lot of foods containing high sodium and potassium. States that he is taking his medications. He does not have any family members in the room at this time. He is slightly confused as to most recent events. He has a family friend who is at the bedside. The patient is denying any chest pain, no increased work of breathing. He denies any nausea, vomiting, or diarrhea. Patient has received 1 dose of Kayexalate already during his hospitalization for hyperkalemia. He has not had any urine output, except 100 mL documented according to his nurse. His most recent labs indicate his creatinine is at 2.2, which is close to his baseline over the last 6 months. He does have a BNP greater than 35,000. Cardiology has been consulted. They have set up for a thoracentesis in the a.m. on the right side. The patient is known to have severe LV dysfunction. He does have 2+ to 3+ lower extremity edema, positive JVD. PAST MEDICAL HISTORY: Positive for hypertension, coronary artery disease, ND with stenting, hyperlipidemia, diabetes mellitus type 2, systolic heart failure, diastolic heart failure, COPD, chronic smoker, possible chronic kidney disease stage III, baseline creatinine of 2.2 over the last 6 months. He has a history of polysubstance dependence with a history of positive cocaine drug documentation on previous admissions. He has medical noncompliance documented on previous admissions. Last ejection fraction was 15 [address] Ortiz in 2018. PAST SURGICAL HISTORY: Right foot surgery per Dr. Pride, coronary artery stenting with multiple occasions, and a thoracentesis in the past. Most recently it was done on 10/16/2018. SOCIAL HISTORY: We are unable to determine if he lives with family. His friend, who is at his bedside, states that she is attempting to get hold of his family members to assist with his care. He does have a mother according to the family member, but she has not been up to see him at this time. He continues to smoke. Previous documentation that he is retired. No alcohol. Positive illicit drug use has been mentioned on previous admissions. CURRENT ALLERGIES: Listed as no known drug allergies. PREVIOUS HOME MEDICATIONS: Though this has not been yet reconciled, it is tramadol, Isordil, atorvastatin, hydralazine, Novolin, folic acid, polyethylene glycol, aspirin, albuterol inhaler, carvedilol and Lasix. The patient has received an extra dose of Lasix and has been started back on his Coreg. He is to be sent to [facility]. REVIEW OF SYSTEMS: Unable to obtain from patient. Patient is confused as to most recent events. He does state that he has had a stenting to his kidneys in the past, though none of this is mentioned. More than likely he is confused with his cardiac status. Currently denies chest pain, increased work of breathing. Positive for lower extremity swelling. Negative for nausea, vomiting, or diarrhea. No fever or chills that he is aware of. THE PATIENT'S MOST RECENT VITAL SIGNS: His last temperature 98.4 degrees, blood pressure 132/66, heart rate 77, respirations are 17. He is on 3 L nasal cannula; last recorded saturation is 99%. Again, patient has 200 mL out today; so far only 80 mL in the last 24 hours documented this a.m. THE PATIENT'S MOST RECENT LABS: Sodium 141, potassium 5.6, chlorides are at 106, CO2 is 23. BUN 40, creatinine 2.2, glucose of 152. His anion gap is 12. His calcium is 8.9, magnesium 1.6, albumin is 3. BNP greater than 35,000. Troponin is normal. Negative creatine kinase for MB. The patient has a white count of 3.54, hemoglobin 8.1, hematocrit 28.6, with a platelet count of 163. His pro time is 15.5, INR 1.14, PTT 55.5. ABGs yesterday afternoon upon admission showed a pH of 7.4, CO2 39, PO2 146, bicarbonate 25 on 2.5 L. Urinalysis is positive for proteinuria, positive for hematuria, negative for leukocytes. Toxicology shows none detected on urinalysis. X-RAYS: The patient has had a chest x-ray this a.m. indicating moderate to large right basilar pleural effusion with a scheduled thoracentesis in the a.m. The patient had a chest CT without contrast indicating slight increase in size of the large right pleural effusion, cardiomegaly, interstitial pulmonary edema, trace left pleural effusion, severe body wall edema. Renal ultrasound is currently pending. The patient has an echocardiogram that is currently pending. PHYSICAL EXAMINATION: General: This is a 62-year-old male. He is sitting up in bed. He appears chronically ill. There is no acute distress noted. Skin: Warm and dry. HEENT: He is normocephalic, atraumatic. Conjunctiva is pale and slightly reddened. Mucous membranes are dry. Neck: Supple. Trachea midline. He has positive JVD. Cardiovascular: Regular rate and rhythm. S1, S2 noted. Possible systolic murmur. He does have 2 to 3+ lower extremity edema up into the abdominal wall. Pulmonary: Clear to auscultation anterior. Equal excursion. Fine crackles posterior bases. He is on O2. Right is greater than left. Abdomen: This is slightly distended, nontender. Positive bowel sounds. Genitourinary: Not inspected. Patient has had minimal urine out. We will place a Diallo catheter to assist with his total fluid volume. Neurological: Patient is confused today to most recent events. This has been clarified with his family friend who is at his bedside. Integumentary: Warm and dry. He does have some abrasion with some bruising noted to his left vazquez. ASSESSMENT AND PLAN: 1. Acute on chronic kidney disease. The patient is actually close to his historical baseline, though he has had decreased urinary output since his admission. We will place a Diallo catheter. We will check urine electrolytes. We will determine if this is more than likely prerenal or intrarenal. Renal ultrasound is currently pending. There are no indications for intervention today. 2. Electrolytes. Patient is mildly hyperkalemic. He is receiving a second dose of Kayexalate at this time. There is lab ordered later to check his potassium level, followed by the primary care. 3. Acid-base balance. The patient is mildly hypoxemic. He has a history of respiratory failure insufficiency. He is currently on O2. Dr. Mccracken has been consulted. 4. Fluid volume overload. Again, we will place the patient's Diallo catheter in place. The patient is also scheduled for a right thoracentesis by Cardiology in the a.m. We will follow with current labs. I would like to thank you for allowing us to follow with this patient. Dictated by CLAY Gary for Baron Lemon MD cc: CLAY Gary MD
--- NOTE | 2018-11-06 16:31 | Diag Imaging Result Doc PS360 ---
US RENAL 2 (RETROPER) COMPLETE - 11/06/2018 INDICATION: decreased renal function TECHNIQUE: COMPARISON: 10/16/2018 FINDINGS: There is a small amount of ascites. The kidneys are hyperechoic similar to prior. Stable right renal cyst. No hydronephrosis. Urinary bladder is obscured. IMPRESSION: Very small amount of ascites. No change in the urinary tract. Electronically signed by Power Peralta 11/06/2018 4:29 PM
[2018-11-06 16:38] LABS: ALLEN TEST NO; BE 2.2 mmoll (-3.0-3.0); BLOOD TYPE ARTERIAL; HCO3-(ACT) 26.6 mmoll (20.0-26.0); O2(CT) 11.2 mL/dL (15.0-23.0); O2HB 95.8 % (95.0-99.0); PCO2(98.6) 39 mmHg (35-45); PO2(98.6) 87 mmHg (60-100); SAMPLE BLOOD; SAO2 98.5 % (95.0-100.0); THB 8.2 g/dL (11.5-17.4); pH(98.6) 7.44 (7.35-7.45)
[2018-11-06 16:39] LABS: MODALITY ROOM AIR
[2018-11-06] MEDS: TYLENOL PO PRN (17:29)
[2018-11-06] MEDS: ROCEPHIN 1 GM in NS 50 ML IV SCH (17:30)
--- NOTE | 2018-11-06 19:02 | CONSULTATION ---
DATE OF CONSULTATION: 11/06/2018 REQUESTING PROVIDER: CLAY Resendiz REASON FOR CONSULTATION: Recurrent and persistent right pleural effusion, hypoxia. HISTORY OF PRESENT ILLNESS: This is a 62-year-old male with an extensive medical history including severe ischemic cardiomyopathy; systolic congestive heart failure; severe coronary artery disease; recurrent right pleural effusion; COPD; chronic kidney disease; diabetes mellitus type 2; hypertension; hyperlipidemia; and gout. He presented to the ER yesterday with shortness of breath and worsening swelling of the abdomen and lower extremities. Initial workup in the ER revealed [id number] systolic congestive heart failure, recurrent right pleural effusion and mild hypoxemic respiratory failure. He has been admitted to the medical floor for further evaluation and management. At the time of my examination, the patient has been transferred to the [facility]. The patient is resting in bed comfortably with no acute respiratory distress noted. The patient is a poor historian. He apparently has a hard time to focus on answering my question, but keeps talking something else not related. He states he was feeling fine until yesterday morning. He does has cough. He is complaining of heart burn with discomfort in the mid-chest at this time. The nurse is in the room, too. He eventually gets agitated and keeps saying that I need pain medicine. PAST MEDICAL AND SURGICAL HISTORY: 1. Severe ischemic cardiomyopathy 2. Systolic congestive heart failure. Biventricular, right greater than left, with recurrent right pleural effusions, peripheral edema and elevated neck veins. Left ventricular EF of 15-20% based on echocardiogram on 08/27/2018. 3. Severe coronary artery disease with myocardial infarction multiple times status post coronary stenting x5. 4. Recurrent right pleural effusion status post thoracentesis 5 times since 04/21/2018; last thoracentesis on 10/16/2018 with 1.9L fluid withdrawn. 5. COPD 6. Chronic kidney disease, Stage III-IV 7. Diabetes mellitus type 2, insulin dependent 8. Hypertension 9. Hyperlipidemia 10. Gout 11. Folic acid deficiency 12. Tobacco abuse, chronic and ongoing 13. Polysubstance abuse with a history of positive cocaine drug screens on multiple occasions. 14. Medical noncompliance 15. Cholecystectomy 16. Hemorrhoid surgery 17. Cyst removal 18. Right foot surgery SOCIAL HISTORY: The patient lives with family. He used to smoke about 1 pack per day for many years and has been weaning down a lot in the past year. He drinks alcohol occasionally. He has history of polysubstance abuse. FAMILY HISTORY: Positive for coronary artery disease. ALLERGIES: No known drug allergies. REVIEW OF SYSTEMS: Difficult to be obtained. PHYSICAL EXAMINATION: Vital signs: Temperature 98.4 degrees, blood pressure 132/85, pulse 76, respiratory rate 17, oxygen saturation 100% on room air. General: Chronically ill appearing, malnourished, older than stated age, lying in bed. No acute distress noted. The patient is very easily agitated as the nurse is trying to give him medicine. HEENT atraumatic. Trachea midline. Mucosa pink and dry. Respiratory: Chest expansion equal bilaterally. Diminished breathing sounds bilaterally with crackles bibasilarly. Cardiovascular: Regular rate and rhythm without murmur. Gastrointestinal: Normoactive bowel sounds in 4 quadrants. Semi-firm, mildly distended, nontender. Extremities: Pedal edema 2+ bilaterally. BLE cool and tender on touch. Dorsalis pedis diminished bilaterally. Neurologic: Alert and oriented x3. Have trouble focusing on details; very easy to get anxious and agitated. LABORATORY DATA: White blood cells 7.54, hemoglobin 8.1, hematocrit 28.6, platelets 163,000. Sodium 141, potassium 5.6, chloride 106, carbon dioxide 23, BUN 40, creatinine 2.2, glucose 152. ProBNP over 45,000. PTT 55.5. ASSESSMENT: This is a 62-year-old male with an extensive medical history including severe ischemic cardiomyopathy; systolic congestive heart failure; severe coronary artery disease; recurrent right pleural effusion; COPD; chronic kidney disease; diabetes mellitus type 2; hypertension; hyperlipidemia; and gout. He has been admitted with acute systolic congestive heart failure, recurrent right pleural effusion, mild hypoxemic respiratory failure. 1. Respiratory distress. Improving; on room air now. 2. Yqahm-[id number] systolic congestive heart failure. 3. Recurrent right pleural effusion. 4. Yxbtd-jn-oldrick kidney disease. PLAN: 1. Continue supplemental oxygen as needed. 2. Continue diuretic, antibiotic and bronchodilators. 3. Start BiPAP at bedtime and as needed. 4. Thoracentesis in plan. 5. Follow up with chest x-ray, CBC, BMP and ABG. 6. Continue GI and DVT prophylaxis. 7. Further recommendations pending hospital course. Thank you for the courtesy of this consult. Dictated by CLAY Mcneal for Gayla Mccracken MD cc: CLAY Mcneal MD [facility]
[2018-11-06] MEDS: LIPITOR PO SCH (20:57)
[2018-11-06] MEDS: HUMULIN 70/30 SUBQ SCH (21:00)
[2018-11-07] MEDS: DUONEB (A & A) INH SCH ×4 (03:30→22:57)
[2018-11-07 05:55] LABS: BASO# 0.01 X1000 (0.0-0.2); BASO% 0.2 % (0.0-0.8); EOS# 0.02 X1000 (0.0-0.7); EOS% 0.3 % (0.0-10.0); HEMATOCRIT 28.3 % (42.0-52.0); HEMOGLOBIN 8.2 g/dL (14.0-18.0); LYMPH# 1.53 X1000 (1.2-3.4); LYMPH% 26.7 % (20.5-51.1); MCH 26.2 PG (27-31); MCV 90.4 FL (81-99); MONO# 0.45 X1000 (0.11-0.59); MONO% 7.9 % (1.7-9.3); MPV 11.4 FL (7.4-10.4); NEUT# 3.71 X1000 (1.4-6.5); NEUT% 64.9 % (42.2-75.2); PLT 179 X1000 (130-400); RBC 3.13 XMIL (4.7-6.1); RDW 22.4 % (11.5-14.5); WBC 5.72 X1000 (4.8-10.8)
[2018-11-07] MEDS: HUMULIN R SUBQ SCH ×4 (06:08→20:01)
[2018-11-07 06:45] LABS: ALB/GLOB RATIO 0.7; ALBUMIN 2.7 g/dL (3.5-5.0); CALCIUM 8.4 mg/dL (8.8-10.2); CREATININE 2.4 mg/dL (0.7-1.2); PHOSPHORUS 4.5 mg/dL (2.7-4.5); POTASSIUM 3.9 mmol/L (3.5-5.1); TOTAL BILIRUBIN 0.33 mg/dL (0.20-1.00); TOTAL PROTEIN 6.6 g/dL (6.3-8.3)
--- NOTE | 2018-11-07 06:52 | EKG Report ---
Test Performed on : 11/06/2018 5:22:05 PM Test Reason : CP Blood Pressure : / mmHG Vent. Rate : 081 BPM Atrial Rate : 081 BPM P-R Int : 110 ms QRS Dur : 102 ms QT Int : 424 ms P-R-T Axes : 014 -13 167 degrees QTc Int : 492 ms Sinus rhythm. with short NV with premature supraventricular complexes. Inferior infarct (cited on or before 02-OCT-2018) ST & T wave abnormality, consider lateral ischemia Abnormal ECG When compared with ECG of 06-NOV-2018 07:22, (Unconfirmed) premature supraventricular complexes. are now present Unconfirmed Result
--- NOTE | 2018-11-07 07:32 | Diag Imaging Result Doc PS360 ---
CHEST-1 VIEW - 11/07/2018 INDICATION: SOB COMPARISON: 11/06/2018 FINDINGS: Stable moderate to large right basilar pleural effusion. No infiltrates or change from prior. IMPRESSION: Right basilar pleural effusion. Electronically signed by Power Peralta 11/07/2018 7:29 AM
--- NOTE | 2018-11-07 08:46 | Diag Imaging Result Doc PS360 ---
US THORACENTESIS W/IMAGE GUIDE - 11/07/2018 INDICATION: recurrent large right pleural effusion, dyspnea TECHNIQUE: The risks and benefits of the procedure were discussed with the patient. All questions were answered. Written and verbal informed consent was obtained. Overlying skin was prepped and draped in sterile fashion. Anesthesia was achieved with injection of 10 cc of 1% lidocaine. COMPARISON: 11/05/2018 FINDINGS: The large right pleural effusion was drained without difficulty. 2 L was removed. The patient reported no symptoms from the procedure. IMPRESSION: Successful and uncomplicated ultrasound-guided right thoracentesis. Electronically signed by Power Peralta 11/07/2018 8:44 AM
[2018-11-07] MEDS: HEPARIN SUBQ SCH ×2 (09:45→20:00)
[2018-11-07] MEDS: FOLIC ACID PO SCH (09:45)
[2018-11-07] MEDS: COREG PO SCH ×2 (09:45→20:00)
[2018-11-07] MEDS: LASIX IV SCH ×2 (09:45→20:00)
[2018-11-07] MEDS: MIRALAX PO SCH ×2 (09:45→20:01)
[2018-11-07] MEDS: ISORDIL PO SCH (09:46)
[2018-11-07] MEDS: APRESOLINE PO SCH (09:46)
[2018-11-07] MEDS: ENTRESTO 24 MG-26 MG TABLET PO SCH ×2 (09:46→20:01)
[2018-11-07] MEDS: ZYLOPRIM PO SCH ×2 (09:46→20:00)
[2018-11-07] MEDS: ASPIRIN PO SCH (09:46)
[2018-11-07] MEDS: COLCRYS PO SCH (09:46)
[2018-11-07] MEDS: NEURONTIN PO SCH ×2 (09:46→20:00)
[2018-11-07] MEDS: PHOSLO PO SCH ×3 (09:48→17:16)
[2018-11-07] MEDS: PULMICORT INH SCH ×2 (09:55→22:56)
--- NOTE | 2018-11-07 09:58 | NEPHROLOGY PROGRESS NOTE ---
DATE: 11/07/2018 SUBJECTIVE: Patient is sitting up in bed eating breakfast. He is immediately status post thoracentesis to the right. OBJECTIVE: Vital Signs: Temperature 98 degrees, pulse 77, respiratory rate 17, blood pressure 122/67, intake 600 mL, output 1.5 L via catheter. General: This is a middle-aged gentleman sitting up in bed. He is awake and alert. He is in no acute distress. HEENT: Normocephalic, atraumatic. LYNDA. His oral mucosa is moist. Neck: Supple with trace JVD. Cardiovascular: Regular rate and rhythm with a murmur. Pulmonary: He is clear to the left. He has significantly decreased breath sounds on the right. Remains on O2 supplementation via nasal cannula. Abdomen: Soft, with positive bowel sounds. : Diallo catheter. Extremities: He has 2+ edema up to the thighs and waist. Integumentary: Skin is dry with abrasions noted. LAB DATA: WBC of 5.7, hemoglobin 8.2. Sodium 143, potassium 3.9, CO2 25, creatinine 2.4. ASSESSMENT AND PLAN: 1. Acute on chronic kidney disease. His baseline creatinine looks like it is somewhere between 2 and 2.5. He remains fairly stable. It is noted that he had Entresto started by Cardiology yesterday. We agree with this. We are acceptable with a modest increase in creatinine from a medication effect secondary to the cardiac benefit this patient will receive. The patient has excellent urine output at this time and no indications otherwise for intervention. Will continue to monitor closely. It is noted that he had significantly low fractional excretion of urea nitrogen (FEUN), so some of his issues may be prerenal secondary to his large pleural effusion with fluid just simply not being intravascularly present. 2. Electrolytes, acid-base balance. These are acceptable. Potassium is down to 3.9 today. 3. Fluid overload. Patient is in negative territory overnight. Continue on current treatment plan. Continue to follow closely. Dictated by CLAY Waldron for Baron Lemon MD cc: Baron Lemon MD
--- NOTE | 2018-11-07 12:00 | PROGRESS NOTE ---
DATE: 11/07/2018 SUBJECTIVE: The patient is resting comfortable in bed. Not in any obvious distress. OBJECTIVE: Vital Signs: Vital signs are as follows: Temperature 98 degrees, pulse 97, respiratory 17, blood pressure 122/67, oxygen saturation 99%. HEENT: Atraumatic, normocephalic. Cardiovascular system: S1, S2. Respiratory system: Good air entry bilaterally. Abdomen: Soft. Nontender. No masses felt. Extremities: Have 2+ to 3+ edema in the lower extremities. Central nervous system: No obvious focal deficits noted. LABS: WBC is 5.72, hematocrit is 28.3 with platelet count of 179. Sodium is 143, potassium 3.9, chloride is 105, bicarbonate 25. BUN is 45, creatinine is 2.48. X-RAYS: X-ray of the chest shows right basilar pleural effusion. ASSESSMENT AND PLAN: 1. Acute systolic heart failure. Continue diuretics. Monitor intakes and outputs, as well as daily weights. Cardiology following. 2. Coronary artery disease. Asymptomatic. Continue aspirin, beta surya, as well as a statin. 3. Right pleural effusion. Status post thoracocentesis. Pulmonology consulted. 4. Hypertension. Continue current regimen. 5. Hyperlipidemia. Continue statin. 6. Diabetes mellitus. Continue blood sugar monitoring, as well as sliding scale insulin. 7. Chronic kidney disease. Nephrology consulted. 8. Hyperkalemia. Resolved. 9. Folic acid deficiency. Continue folate replacement. 10. Gout. Maintain on allopurinol. Adjust dose for renal function. 11. Deep vein thrombosis prophylaxis. Heparin. cc: Vipin Zhao MD MTDD
[2018-11-07] MEDS: BIDIL PO SCH ×2 (15:56→20:00)
[2018-11-07] MEDS ORDERED: LASIX IV ONE (16:48)
[2018-11-07] MEDS: ROCEPHIN 1 GM in NS 50 ML IV SCH (17:16)
[2018-11-07] MEDS: LIPITOR PO SCH (20:01)
[2018-11-07] MEDS: HUMULIN 70/30 SUBQ SCH (20:01)
[2018-11-07] MEDS ORDERED: TUMS PO ONE (20:30)
[2018-11-08] MEDS: DUONEB (A & A) INH SCH ×4 (04:32→22:20)
[2018-11-08 05:33] LABS: ALBUMIN 2.3 g/dL (3.5-5.0); CREATININE 2.1 mg/dL (0.7-1.2); PHOSPHORUS 4.1 mg/dL (2.7-4.5); POTASSIUM 3.4 mmol/L (3.5-5.1)
[2018-11-08] MEDS: HUMULIN R SUBQ SCH ×4 (06:00→20:51)
[2018-11-08] MEDS: PROTONIX PO SCH (06:00)
[2018-11-08] MEDS: LASIX IV SCH ×3 (09:48→20:50)
[2018-11-08] MEDS: HEPARIN SUBQ SCH ×2 (09:48→20:50)
[2018-11-08] MEDS: COLCRYS PO SCH (09:49)
[2018-11-08] MEDS: BIDIL PO SCH ×3 (09:49→20:52)
[2018-11-08] MEDS: ENTRESTO 24 MG-26 MG TABLET PO SCH ×2 (09:49→20:50)
[2018-11-08] MEDS: MIRALAX PO SCH ×2 (09:49→20:49)
[2018-11-08] MEDS: FOLIC ACID PO SCH (09:49)
[2018-11-08] MEDS: NEURONTIN PO SCH ×2 (09:49→20:52)
[2018-11-08] MEDS: ASPIRIN PO SCH (09:49)
[2018-11-08] MEDS: ZYLOPRIM PO SCH ×2 (09:49→20:52)
[2018-11-08] MEDS: COREG PO SCH ×2 (09:49→20:52)
[2018-11-08] MEDS: PHOSLO PO SCH ×3 (09:51→16:16)
[2018-11-08] MEDS: PULMICORT INH SCH ×2 (10:16→20:35)
[2018-11-08] MEDS: ZOFRAN IV PRN (10:29)
[2018-11-08] MEDS ORDERED: ALBUMIN 25% IV ONE (12:26)
--- NOTE | 2018-11-08 12:54 | NEPHROLOGY PROGRESS NOTE ---
DATE: 11/08/2018 SUBJECTIVE: Patient is sitting up in bed. He states that his breathing is a little better today. OBJECTIVE: Vital Signs: Temperature 98.1 degrees, pulse 88, respiratory rate 15, blood pressure 114/64, intake 1.5 L, output 2.3 L. Also he had 2 L removed on thoracentesis yesterday. General: This is a middle-aged gentleman sitting up in bed in no acute distress. HEENT: Normocephalic, atraumatic. LYNDA. Oral mucosa moist. Neck: Supple. Trace JVD. Cardiovascular: Regular rate and rhythm with a murmur. Pulmonary: Continues with decreased breath sounds to the right. He is on room air today. Abdomen: Soft, with positive bowel sounds. : Not inspected. Extremities: 2+ edema. Integumentary: Skin is warm and dry. LAB DATA: Potassium 3.49, CO2 27, creatinine 2.1 (2.4). ASSESSMENT AND PLAN: 1. Acute on chronic kidney disease. Renal function remains in his historic baseline. He has some improvement with creatinine even with in the initiation of Entresto. No changes need to be made to his current treatment plan. It is noted he is on dobutamine and understand that this will likely be discontinued at the first of the week and see where his renal function and cardiac issues stand at that point. Cardiology following. Has albumin ordered today. 2. Fluid volume overload. Remains in negative territory. 3. Electrolytes, acid-base balance anemia. These have been stable. Dictated by CLAY Waldron for Baron Lemon MD cc: Baron Lemon MD [facility]
--- NOTE | 2018-11-08 14:22 | CARDIOLOGY PROGRESS NOTE ---
DATE: 11/08/2018 SUBJECTIVE: Mr. Stewart reports he feels a little bit better today. His shortness of breath has improved. PHYSICAL EXAMINATION: Vital Signs: Afebrile. Heart rate 85, blood pressure 118/62. His I's and O's are overall negative for the course of the hospitalization but he was only -720 mL yesterday, so far 550 mL today. General: No acute distress. Cardiovascular: He is in a regular rate and rhythm. He has distended neck veins, 2 to 3+ bilateral lower extremity edema. Warm and well perfused extremities. Chest: Exam is clear bilaterally. No increased work of breathing. Abdomen: Soft, nontender. PERTINENT DATA: His sodium is 144, potassium 3.4, BUN 46, creatinine is 2.1 which is relatively stable for him. His albumin level is 2.3. ASSESSMENT: Mr. Stewart is a 62-year-old gentleman with a history of chronic kidney disease, congestive heart failure. PLAN: I will continue him on the dobutamine for the time being. I have increased his Lasix to 60 IV q.8. We will continue to try to diurese him. Notably his albumin levels are on the low side. I will try to give him a little bit of albumin today too. We will continue him on the current medications other than those adjustments listed above. cc: Ld Ortiz MD
--- NOTE | 2018-11-08 15:08 | PROGRESS NOTE ---
DATE: 11/08/2018 SUBJECTIVE: Patient notes he is feeling a lot better. Still tired, fatigued, still short of breath with any activity. Still having swelling of lower extremities. Denies any chest pain, palpitations. PHYSICAL EXAMINATION: 98.1 degrees, pulse 88, respiratory 18, BP 114/64.General: Patient is awake. He is currently in no respiratory distress. Very pleasant to talk with. HEENT: Normocephalic. Neck: Supple. Cardiovascular: Regular rate. Chest: Decreased but equal breath sounds bilaterally. Abdomen: Soft, nondistended. Extremities: He has 2+ edema of bilateral lower extremities. The patient notes has improved. Neurologic: No focal neurologic changes. Skin: Warm dry no rashes. Neurologic: No focal neurologic changes. ASSESSMENT: 1. Acute systolic congestive heart failure, currently is on Entresto and seems to be improving. 2. Chronic renal failure. Creatinine baseline around 2 to 2.5. He appears to be at his baseline at 2.1. 3. Hypokalemia. 4. Pleural effusion. 5. Hyperlipidemia. 6. Hypertension. PLAN: We will continue patient in the hospital. Continue Entresto, symptomatic treatment and we will follow. cc: Lio Sunshine MD
--- NOTE | 2018-11-08 16:06 | PULMONOLOGY PROGRESS NOTE ---
DATE: 11/08/2018 SUBJECTIVE: The patient is awake, alert, and conversant. He is sitting in his bedside chair. He reports his shortness of breath has diminished. OBJECTIVE: Vital Signs: BP 118/62, heart rate 85, respiratory rate 16, oxygen saturation 99% on room air. HEENT: Pupils are equal and reactive. Oropharynx is clear. Neck: Supple. Chest: Reveals diminished breath sounds at the right base. Cardiac exam: S1, S2. Abdomen: Soft. Extremities: Reveal trace edema. LABORATORIES: Sodium 144, potassium 3.4, chloride 104 bicarbonate 27. BUN 46, creatinine 2.1. IMPRESSION: A 62 year old with recurrent pleural effusion which has been transudative in the past on 2 separate thoracenteses. He has had an additional thoracentesis this admission, severe ischemic cardiomyopathy with ejection fraction of 20 to 25 percent, acute on chronic renal disease, and fluid overload. RECOMMENDATIONS: 1. Continue to treat heart failure as outlined by Cardiology. 2. Attempt to maintain negative fluid balance. 3. Overall prognosis is guarded given recurrent admissions to the hospital with heart failure. cc: Evan Del Rosario MD
[2018-11-08] MEDS: ROCEPHIN 1 GM in NS 50 ML IV SCH (20:49)
[2018-11-08] MEDS: LIPITOR PO SCH (20:50)
[2018-11-08] MEDS: HUMULIN 70/30 SUBQ SCH (20:51)
[2018-11-09] MEDS: DUONEB (A & A) INH SCH ×4 (03:32→22:52)
[2018-11-09] MEDS: LASIX IV SCH ×4 (05:15→20:47)
[2018-11-09 05:54] LABS: ALBUMIN 2.5 g/dL (3.5-5.0); CREATININE 2.1 mg/dL (0.7-1.2); PHOSPHORUS 4.3 mg/dL (2.7-4.5); POTASSIUM 3.6 mmol/L (3.5-5.1)
[2018-11-09] MEDS: HUMULIN R SUBQ SCH ×4 (06:02→20:48)
[2018-11-09] MEDS: PROTONIX PO SCH (06:10)
[2018-11-09] MEDS: PULMICORT INH SCH ×2 (07:40→19:36)
[2018-11-09] MEDS: HEPARIN SUBQ SCH ×2 (08:03→20:48)
[2018-11-09] MEDS: PHOSLO PO SCH ×3 (08:03→17:17)
[2018-11-09] MEDS: NEURONTIN PO SCH ×2 (08:03→20:46)
[2018-11-09] MEDS: COLCRYS PO SCH (08:04)
[2018-11-09] MEDS: FOLIC ACID PO SCH (08:04)
[2018-11-09] MEDS: MIRALAX PO SCH ×3 (08:04→20:52)
[2018-11-09] MEDS: ZYLOPRIM PO SCH ×2 (08:04→20:47)
[2018-11-09] MEDS: COREG PO SCH ×2 (08:04→20:47)
[2018-11-09] MEDS: ASPIRIN PO SCH (08:04)
[2018-11-09] MEDS: BIDIL PO SCH ×3 (08:04→20:47)
[2018-11-09] MEDS: ENTRESTO 24 MG-26 MG TABLET PO SCH ×2 (08:11→20:47)
--- NOTE | 2018-11-09 13:20 | CARDIOLOGY PROGRESS NOTE ---
DATE: 11/09/2018 SUBJECTIVE: Mr. Stewart is sitting up in bed. He reports continued stable shortness of breath with continued significant lower extremity edema. OBJECTIVE: Vitals: Patient is afebrile. Heart rate of 87, his blood pressure is 133/67. Generally: He is in no acute distress. Cardiovascular: He sounds to be in a regular rate and rhythm. No obvious murmurs. He has marked bilateral lower extremity edema and warm and well- perfused extremities. Chest exam: Sounds clear bilaterally. No increased work of breathing. Abdomen: Soft, nontender. PERTINENT DATA: His sodium is 142, potassium 3.6, BUN 43, creatinine 2.1 which has been stable for several days. His proBNP is greater than 35,000. His input and output are more significantly negative over the last 24 hours at -1.5 L. ASSESSMENT: Mr. Stewart is a 62-year-old gentleman with a history of systolic heart failure. PLAN: We escalated his diuretics to 60 IV q.8 yesterday. I would recommend continuing on the dobutamine for the time being. His extremities are still markedly edematous and he continues to have significant distention of his neck veins. Does seem to be diuresing better on the current regimen. cc: Ld Ortiz MD
[2018-11-09] MEDS: TYLENOL PO PRN (14:01)
--- NOTE | 2018-11-09 15:24 | PROGRESS NOTE ---
DATE: 11/09/2018 SUBJECTIVE: Patient is resting comfortably in bed. Not in any obvious distress. OBJECTIVE: Vital Signs: Temperature 98.6 degrees, pulse 70, respiratory rate 16, blood pressure 130/67, oxygen saturation is 100%. HEENT: Head atraumatic and normocephalic. Cardiovascular System: S1 and S2. Respiratory System: Good air entry bilaterally. Abdomen: Soft, nontender. No masses felt. Extremities: He has 2+ edema in the lower extremities. Central Nervous System: No obvious focal deficit noted. Labs: Sodium 142, potassium 3.6, chloride 102, bicarb 28, BUN is 43, creatinine 2.1. ASSESSMENT AND PLAN: 1. Acute systolic heart failure. Continue diuretics. Monitor intakes and outputs, as well as daily weights. Cardiology following. 2. Coronary artery disease. Asymptomatic. Continue aspirin, beta surya, as well as a statin. 3. Right pleural effusion, status post thoracocentesis. Pulmonology was consulted. 4. Hypertension. Continue current regimen. 5. Hyperlipidemia. Continue statin. 6. Diabetes mellitus. Continue blood sugar monitoring as well as sliding scale insulin. 7. Chronic kidney disease. Follow up on renal function. Avoid nephrotoxic agents. Nephrology consulted. 8. Folic acid deficiency. Continue folate replacement. 9. Gout. Continue allopurinol. 10. Deep vein thrombosis prophylaxis. Heparin. cc: Vipin Zhao MD
--- NOTE | 2018-11-09 15:47 | PULMONOLOGY PROGRESS NOTE ---
DATE: 11/09/2018 SUBJECTIVE: The patient is awake, alert, and conversant. He denies shortness of breath at rest but does get short of breath with any movement. He is currently on a dobutamine drip and appears to be diuresing. He has been initiated on Entresto. OBJECTIVE: Vital Signs: BP 133/67, heart rate 87, respiratory rate 16, oxygen saturation 100%. HEENT: Pupils are equal and reactive. Oropharynx is clear. Neck: Supple with mild JVD. Chest: Reveals decreased breath sounds at the right base. Cardiac Examination: S1 and S2 without definite S3. Abdomen: Soft. Extremities: Reveal peripheral edema. Laboratories: BUN 43 which is stable, creatinine 2.1 which is stable. ProBNP is markedly elevated at greater than 35,000. IMPRESSION: A 62-year-old with systolic heart failure, transudative pleural effusion, dyspnea, acute on chronic renal failure with fluid overload. RECOMMENDATION: 1. Continue treatment for heart failure as outlined by cardiology. 2. We will follow up with a chest x-ray tomorrow morning. cc: Evan Del Rosario MD
[2018-11-09] MEDS: LIPITOR PO SCH (20:46)
[2018-11-09] MEDS: HUMULIN 70/30 SUBQ SCH (20:48)
[2018-11-09] MEDS: ROCEPHIN 1 GM in NS 50 ML IV SCH (20:48)
[2018-11-10] MEDS: DUONEB (A & A) INH SCH ×4 (03:25→22:55)
[2018-11-10] MEDS: PROTONIX PO SCH ×2 (05:16→06:27)
[2018-11-10] MEDS: LASIX IV SCH ×3 (05:17→20:31)
[2018-11-10 05:40] LABS: BASO# 0.01 X1000 (0.0-0.2); BASO% 0.3 % (0.0-0.8); EOS# 0.08 X1000 (0.0-0.7); HEMATOCRIT 25.7 % (42.0-52.0); HEMOGLOBIN 7.5 g/dL (14.0-18.0); LYMPH# 1.42 X1000 (1.2-3.4); LYMPH% 35.7 % (20.5-51.1); MCH 26.1 PG (27-31); MCHC 29.2 g/dL (33-37); MCV 89.5 FL (81-99); MONO% 12.6 % (1.7-9.3); MPV 10.8 FL (7.4-10.4); NEUT# 1.97 X1000 (1.4-6.5); NEUT% 49.4 % (42.2-75.2); PLT 176 X1000 (130-400); RBC 2.87 XMIL (4.7-6.1); WBC 3.98 X1000 (4.8-10.8)
[2018-11-10 05:50] LABS: ALBUMIN 2.4 g/dL (3.5-5.0); CALCIUM 7.9 mg/dL (8.8-10.2); CREATININE 2.5 mg/dL (0.7-1.2); PHOSPHORUS 3.5 mg/dL (2.7-4.5); POTASSIUM 3.8 mmol/L (3.5-5.1)
[2018-11-10] MEDS: HUMULIN R SUBQ SCH ×4 (06:27→20:30)
[2018-11-10] MEDS: COLCRYS PO SCH ×2 (07:37→08:04)
[2018-11-10] MEDS: MIRALAX PO SCH ×3 (07:37→20:25)
[2018-11-10] MEDS: COREG PO SCH ×3 (07:37→20:31)
[2018-11-10] MEDS: PHOSLO PO SCH ×3 (07:37→16:37)
[2018-11-10] MEDS: NEURONTIN PO SCH ×3 (07:37→20:31)
[2018-11-10] MEDS: HEPARIN SUBQ SCH ×3 (07:37→20:30)
[2018-11-10] MEDS: FOLIC ACID PO SCH ×2 (07:37→08:05)
[2018-11-10] MEDS: ASPIRIN PO SCH ×2 (07:38→08:04)
[2018-11-10] MEDS: ENTRESTO 24 MG-26 MG TABLET PO SCH ×3 (07:38→20:32)
[2018-11-10] MEDS: BIDIL PO SCH ×4 (07:38→20:31)
[2018-11-10] MEDS: ZYLOPRIM PO SCH ×3 (07:38→20:31)
--- NOTE | 2018-11-10 07:38 | Diag Imaging Result Doc PS360 ---
CHEST-PORTABLE - 11/10/2018 INDICATION: abnormal exam COMPARISON: 11/07/2018 FINDINGS: Stable cardiomegaly and pulmonary vascular congestion. There has been decrease in the right basilar pleural effusion which is now small in size. There is also decrease in the faint atelectasis at the right lung base. IMPRESSION: Improved aeration of the right lung base. Stable cardiomegaly and significant pulmonary vascular congestion. Electronically signed by Power Peralta 11/10/2018 7:35 AM
[2018-11-10] MEDS: PULMICORT INH SCH (11:18)
--- NOTE | 2018-11-10 11:57 | NEPHROLOGY PROGRESS NOTE ---
DATE: 11/10/2018 TIME SEEN: 0710 SUBJECTIVE: Mr. Stewart is resting quietly in bed. States that he is feeling much better. No increased work of breathing. OBJECTIVE: His most recent vital signs: Temperature 98.6 degrees, blood pressure 106/54, heart rate 86, respirations 18. He is on room air; last recorded saturation is 98%. Intake and output: The patient has had 850 in, 1650 out documented to Diallo catheter. LABORATORY DATA: Sodium is 146, potassium 3.8, chloride 107, CO2 of 27, BUN 44, creatinine 2.5, glucose 111, the patient's anion gap is 12, his calcium is 7.9, phosphorus 3.5, albumin is 2.4. White count 3.98, hemoglobin 7.5, hematocrit 25.7, platelet count is 176,000. PHYSICAL EXAMINATION: General: This is a 62-year-old male, resting quietly in bed. Skin: Warm and dry. HEENT: Normocephalic, atraumatic. Conjunctiva is pale. He has LYNDA. Mucous membranes are dry. Neck: Supple. Trachea midline. He does have positive JVD in the upright position. Cardiovascular: Regular rate and rhythm. S4 is present. Lungs: Clear to auscultation bilateral with equal excursion on room air. Abdomen: Soft, nontender. Positive bowel sounds. Genitourinary: Not inspected. Patient has had adequate urine output in response to his Lasix 60 mg every 8 hours. Extremities: Continues with 1+ edema. No clubbing or cyanosis. He does have some dry skin with some callus to his left outer aspect of his left foot. Integumentary: Warm and dry. Neurological: Alert to person and to place. ASSESSMENT AND PLAN: 1. Acute on chronic kidney disease. Patient's renal function has remained at his historical baseline. We will check a 24- hour urine. He does continue on his Entresto. Adequate urine output is documented. No indications for dialysis intervention. 2. Electrolytes and acid-base balance. These are acceptable. 3. Anemia. This is acceptable. 4. Fluid volume overload. The patient is in a negative fluid balance. I would like to thank you for allowing us to follow with this patient. Dictated by CLAY Gary for Baron Lemon MD Face to face encounter, data reviewed, discussed with Amaris Grissom on 11/10/18. I agree with the above assessment and plan of care. cc: CLAY Gary MD [facility]
--- NOTE | 2018-11-10 14:00 | PROGRESS NOTE ---
DATE: 11/10/2018 SUBJECTIVE: Patient resting comfortable in bed. Not in any obvious distress. OBJECTIVE: Vital signs: Temperature is 98.7 degrees, pulse 83, respirations 16, blood pressure 100/51, oxygen saturation 97%. HEENT: Atraumatic normocephalic. Neck: No jugular venous distention. Cardiovascular: S1, S2. Respiratory system: Has evidence of good air entry bilaterally. Abdomen: Soft, nontender. No masses felt. Extremities: Has about 2+ edema in both lower extremities. Central nervous system: No obvious focal deficit noted. LABORATORY DATA: WBC is 32.9, hematocrit 25.7 with a platelet count of 176,000. Sodium is 146, potassium 3.8, chloride is 107, bicarb 27, BUN is 44, creatinine 2.5. X-ray chest shows improved aeration right lung base. Stable cardiomegaly with significant pulmonary vascular condition. ASSESSMENT AND PLAN: 1. Acute systolic heart failure. Continue diuretics. Monitor intake and output and was as well as daily weights. Cardiology is following. 2. Coronary artery disease. The patient is asymptomatic. Continue aspirin and beta suyra, as well as statin. 3. Hypertension. Continue current antihypertensive regimen. 4. Hyperlipidemia. Continue statin. 5. Diabetes mellitus. Continue blood sugar monitoring as well as sliding scale insulin. 6. Acute kidney injury superimposed on chronic kidney disease. Follow up on renal function. Avoid nephrotoxic agent. Nephrology following. 7. Folic acid deficiency. Continue folate replacement. 8. Gout. Continue allopurinol. 9. Deep vein thrombosis prophylaxis. Heparin. cc: Vipin Zhao MD
[2018-11-10 14:15] LABS: IRON SATURATION 12 %; TIBC 200 ug/dL; TOTAL IRON 24 ug/dL (53-167); UNBOUND IRON 176 ug/dL (112-346)
[2018-11-10 14:28] LABS: FERRITIN 190 ng/mL (30-400)
[2018-11-10] MEDS: ROCEPHIN 1 GM in NS 50 ML IV SCH (20:31)
[2018-11-10] MEDS: HUMULIN 70/30 SUBQ SCH (20:31)
[2018-11-10] MEDS: LIPITOR PO SCH (20:31)
[2018-11-11] MEDS: PULMICORT INH SCH ×2 (00:23→10:52)
--- NOTE | 2018-11-11 01:06 | PULMONOLOGY PROGRESS NOTE ---
DATE: 11/10/2018 SUBJECTIVE: The patient reports his breathing has improved. He is without specific complaints today. OBJECTIVE: Vital Signs: The patient has been afebrile for the last 24 hours. He is on room air. BP 128/61, respiratory rate 12, oxygen saturation 95%. HEENT: Pupils are equal and reactive. Oropharynx is clear. Neck: Supple. Chest: Reveals diminished breath sounds right base. Cardiac: S1, S2. Abdomen: Soft. Extremities: Reveal trace to 1+ peripheral edema. LABORATORIES: Chest x-ray reveals cardiomegaly with mild vascular congestion with improved aeration at the right lung base. IMPRESSION: A 62-year-old with 1. Recurrent transudative pleural effusion. 2. Dyspnea on exertion. 3. Systolic heart failure. 4. Total body fluid overload. 5. Acute on chronic renal failure. RECOMMENDATIONS: 1. Continue Entresto for his heart failure. 2. Fluid restriction as ordered. 3. Follow up renal profile tomorrow morning. cc: Evan DelR osario MD
[2018-11-11] MEDS: LASIX IV SCH ×2 (03:28→04:31)
[2018-11-11] MEDS: DUONEB (A & A) INH SCH ×4 (04:01→22:50)
[2018-11-11] MEDS: HUMULIN R SUBQ SCH ×4 (06:19→22:44)
[2018-11-11] MEDS: PROTONIX PO SCH (06:33)
[2018-11-11 06:44] LABS: ALBUMIN 2.6 g/dL (3.5-5.0); CALCIUM 8.1 mg/dL (8.8-10.2); CREATININE 2.6 mg/dL (0.7-1.2); PHOSPHORUS 3.4 mg/dL (2.7-4.5); POTASSIUM 3.9 mmol/L (3.5-5.1)
[2018-11-11] MEDS ORDERED: LASIX IV SCH (07:11)
[2018-11-11] MEDS: LASIX 200 MG in NS 25 ML IV SCH ×3 (08:55→23:17)
[2018-11-11] MEDS: COREG PO SCH ×2 (08:56→23:04)
[2018-11-11] MEDS: MIRALAX PO SCH ×2 (08:56→23:02)
[2018-11-11] MEDS: ASPIRIN PO SCH (08:56)
[2018-11-11] MEDS: BIDIL PO SCH ×3 (08:56→23:03)
[2018-11-11] MEDS: FOLIC ACID PO SCH (08:56)
[2018-11-11] MEDS: NEURONTIN PO SCH ×2 (08:56→23:04)
[2018-11-11] MEDS: ZYLOPRIM PO SCH ×2 (08:56→23:04)
[2018-11-11] MEDS: COLCRYS PO SCH (08:57)
[2018-11-11] MEDS: PHOSLO PO SCH ×3 (09:00→17:26)
[2018-11-11] MEDS: HEPARIN SUBQ SCH ×2 (09:00→23:04)
--- NOTE | 2018-11-11 09:10 | NEPHROLOGY PROGRESS NOTE ---
DATE: 11/11/2018 TIME SEEN: 0645. SUBJECTIVE: Mr. Stewart is resting quietly in bed. His head of the bed is elevated. He states that he is breathing much better. OBJECTIVE: Vital Signs: His last set of vital signs, temperature 98.4 degrees, blood pressure 128/62, heart rate 87 respirations 16 he is on room air last recorded saturation is 99%. General: This is a 62-year-old male. He is currently resting in bed. He appears chronically ill, no acute distress. Skin: Warm and dry. HEENT: Normocephalic, atraumatic. Conjunctiva is pale. He has LYNDA. Mucous membranes are dry. Neck: Supple. Trachea midline. He does have positive JVD. Cardiovascular: He is regular rate and rhythm. He has an S4 that is present. Lungs: Clear to auscultation bilaterally. Equal excursion. He remains on room air. Abdomen: Soft, nontender, positive bowel sounds. Genitourinary: Diallo catheter is in place. The patient is complaining of some urine around his catheter. This was inspected. There is no wetness noted to the skin or in his bed. We have discussed that this may be pressure. Extremities: Patient does have 1+ lower extremity edema. No clubbing or cyanosis. Neurological: He is alert to person and place. INPUT AND OUTPUT: The patient has had 0 recorded in, he has had 2475 mL out to Diallo catheter. LABORATORY DATA: Sodium 144, potassium 3.9, chloride 107, CO2 28, BUN 48, creatinine 2.6, glucose 140. His anion gap is 9, calcium 8.1, phosphorus 3.4, albumin 2.6. White count 3.98, hemoglobin 7.5, hematocrit 25.7, platelet count is 176,000. ASSESSMENT AND PLAN: 1. Acute on chronic kidney disease. The patient creatinine remains at his historical baseline of 2.2 to 2.4. He continues to receive 60 mg of Lasix q.8 hours. He continues with JVD. Secondary to these findings we will increase his Lasix to 200 mg every 8 hours over the next 48 hours and evaluate if this is of any assistance or not. We have spoken to him in regards with possible dialysis on an outpatient basis to assist him with his fluid volume overload secondary to his frequency of admissions due to increased work of breathing and fluid volume overload. The patient is unsure of this at this time. 2. Electrolytes and acid-base balance. These are acceptable. 3. Anemia. This is low. We will defer to the primary care team. 4. Fluid volume overload. Again, the patient is in a negative fluid balance. We have discussed giving him 200 mg of Lasix q.8 hours and evaluating the patient's response. I would like to thank you for allowing us to follow with this patient. Dictated by CLAY Gary for Baron Lemon MD Face to face encounter, data reviewed, discussed with Amaris Grissom on 11/11/18. I agree with the above assessment and plan of care. cc: CLAY Gary MD [facility]
[2018-11-11] MEDS: ENTRESTO 24 MG-26 MG TABLET PO SCH ×2 (11:14→23:02)
--- NOTE | 2018-11-11 11:55 | PROGRESS NOTE ---
DATE: 11/11/2018 SUBJECTIVE: The patient is resting in bed not in any obvious distress. OBJECTIVE: Vital Signs: Temperature 98 degrees, pulse 90 respirations 18, blood pressure 142/61, and oxygen saturation is 96%. HEENT: Atraumatic and normocephalic. Cardiovascular: S1, S2. Respiratory: There is evidence of good air entry bilaterally. Abdomen: Soft and nontender. No masses felt. Extremities: 1 to 2+ edema present in both lower extremities. Central nervous system: No obvious focal deficit noted. LABORATORY DATA: Sodium 144, potassium 3.9, chloride 107, bicarb 28, BUN is 48, and creatinine is 2.6. Glucose is 140. Serum iron is 26. A chest x-ray on 11/10/2018 shows improved aeration in the right lung base. There is still evidence of cardiomegaly as well as a significant pulmonary vascular congestion. ASSESSMENT AND PLAN: 1. Acute systolic heart failure. Continue diuretics. Monitor intakes and outputs as well as daily weights. Cardiology is following. 2. Coronary artery disease. Asymptomatic. Continue aspirin , beta surya and statin. 3. Hypertension. Continue current antihypertensive regimen. 4. Hyperlipidemia. Continue statin. 5. Diabetes mellitus. Continue blood sugar monitoring as well as sliding scale insulin. 6. Acute kidney injury superimposed on chronic kidney disease. Follow up on renal function. Avoid nephrotoxic agents. Nephrology is following. 7. Folic acid deficiency. Maintain patient on fluid replacement. 8. Anemia of chronic disease. Follow up on hemoglobin and hematocrit. Transfuse packed red blood cells if needed. Replace iron as well as folate. 9. Gout. Continue allopurinol. 10. Deep vein thrombosis prophylaxis. Heparin. 11. Gastrointestinal prophylaxis. PPI. cc: Vipin Zhao MD [facility]
[2018-11-11] MEDS: ICAR-C PO SCH (12:20)
[2018-11-11] MEDS: ULTRAM PO PRN (15:00)
[2018-11-11 15:19] LABS: UR CREATININE 35.2 mg/dL (14-26); UR PROTEIN 60.5 mg/dL
[2018-11-11 15:57] LABS: UR CREATININE TOTAL 985.6 mg/24 (800-1800)
[2018-11-11 15:58] LABS: CREATININE 2.6 mg/dL (0.7-1.2)
[2018-11-11] MEDS: HUMULIN 70/30 SUBQ SCH (23:03)
[2018-11-11] MEDS: LIPITOR PO SCH (23:04)
[2018-11-12] MEDS: ULTRAM PO PRN ×2 (01:15→09:27)
[2018-11-12] MEDS: DUONEB (A & A) INH SCH ×4 (03:45→21:37)
[2018-11-12] MEDS: HUMULIN R SUBQ SCH ×4 (06:29→21:44)
[2018-11-12] MEDS: PROTONIX PO SCH (06:30)
[2018-11-12] MEDS: PULMICORT INH SCH ×3 (06:54→21:37)
[2018-11-12 07:18] LABS: ALBUMIN 2.5 g/dL (3.5-5.0); CALCIUM 8.4 mg/dL (8.8-10.2); CREATININE 2.4 mg/dL (0.7-1.2); POTASSIUM 3.7 mmol/L (3.5-5.1)
--- NOTE | 2018-11-12 08:51 | NEPHROLOGY PROGRESS NOTE ---
DATE: 11/12/2018 Seen 11/12/2018, time seen 06:45. SUBJECTIVE: Mr. Stewart is sitting up in bed. States that he felt like he has gone to the bathroom quite a bit though he has a Diallo catheter that is in place. He denies any increased work of breathing. OBJECTIVE: Vital Signs: Temperature is 98.7 degrees, blood pressure 141/71, heart rate is 92, respirations 18. He is currently on room air. Last recorded saturation 99%. He has had 870 in, 2095 out to Diallo catheter. LABS: His sodium is 140, potassium 3.7, chloride 103, CO2 26, BUN 50, creatinine 2.4, glucose is 125. His anion gap is 11. His calcium is 8.4, phosphorus 3, albumin is 2.5. The patient had a previous hemoglobin of 7.5 on the . PHYSICAL EXAM: General: This is a 62-year-old male. He is resting quietly in bed. He appears chronically ill with no acute distress. Skin: Warm and dry. HEENT: Normocephalic, atraumatic. Conjunctiva is pale pink. LYNDA. Mucous membranes are dry. Neck: Supple. Trachea midline. He does continue with positive JVD. Cardiovascular: Regular rate and rhythm. He has an S4 that is present. Lungs: Clear to auscultation anteriorly, equal excursion. He remains on room air. Abdomen: Soft, nontender, positive bowel sounds. Genitourinary: Diallo catheter is in place. Extremities: He continues with 2 to 3+ lower extremity edema up into the hip region. Neurological: He is alert and oriented x3. ASSESSMENT AND PLAN: 1. Acute on chronic kidney disease. Patient's BUN and creatinine have remained stable in spite of increasing his Lasix to 200 mg every 8 hours. Due to his modest urinary output, we will add Zaroxolyn 10 mg daily for next 48 hours and we will re-evaluate the patient's volume status. No indications for further intervention at this time. 2. Electrolytes and acid-base balance. These are acceptable. 3. Anemia, this is low. We will check a CBC on his labs in the morning. 4. Fluid volume overload. Patient remains on 200 mg of Lasix q.8 hours. We will add Zaroxolyn 10 mg daily and will re-evaluate in 48 hours to monitor his fluid volume status. I would like to thank you for allowing us to follow with this patient. Dictated by CLAY Gary for Baron Lemon MD Face to face encounter, data reviewed, discussed with Amaris Grissom on 11/12/18. I agree with the above assessment and plan of care. cc: CLAY Gary MD [facility]
[2018-11-12] MEDS: PHOSLO PO SCH ×4 (09:07→17:35)
[2018-11-12] MEDS: ENTRESTO 24 MG-26 MG TABLET PO SCH ×2 (09:07→21:45)
[2018-11-12] MEDS: ASPIRIN PO SCH (09:07)
[2018-11-12] MEDS: COLCRYS PO SCH (09:07)
[2018-11-12] MEDS: COREG PO SCH ×2 (09:07→21:45)
[2018-11-12] MEDS: NEURONTIN PO SCH ×2 (09:07→21:45)
[2018-11-12] MEDS: ICAR-C PO SCH (09:07)
[2018-11-12] MEDS: ZYLOPRIM PO SCH ×2 (09:08→21:45)
[2018-11-12] MEDS: HEPARIN SUBQ SCH ×2 (09:08→21:45)
[2018-11-12] MEDS: FOLIC ACID PO SCH (09:08)
[2018-11-12] MEDS: LASIX 200 MG in NS 25 ML IV SCH ×3 (09:08→23:18)
[2018-11-12] MEDS: BIDIL PO SCH ×3 (09:08→21:45)
[2018-11-12] MEDS: MIRALAX PO SCH ×2 (09:09→21:47)
[2018-11-12] MEDS: ZAROXOLYN PO SCH (09:27)
--- NOTE | 2018-11-12 13:51 | EKG Report ---
Test Performed on : 11/12/2018 1:45:27 PM Test Reason : Irregular heart rhythm Blood Pressure : / mmHG Vent. Rate : 092 BPM Atrial Rate : 092 BPM P-R Int : 106 ms QRS Dur : 108 ms QT Int : 376 ms P-R-T Axes : 012 -08 184 degrees QTc Int : 464 ms Sinus rhythm. with short [place] with frequent premature ventricular complexes. Inferior infarct (cited on or before 02-OCT-2018) ST & T wave abnormality, consider lateral ischemia Abnormal ECG When compared with ECG of 12-NOV-2018 13:44, (Unconfirmed) Previous ECG has undetermined rhythm, needs review Serial changes of Inferior infarct present Unconfirmed Result
--- NOTE | 2018-11-12 14:00 | PROGRESS NOTE ---
DATE: 11/12/2018 INTERVAL HISTORY: No acute events overnight. His vitals were unremarkable. SUBJECTIVE: The patient is denying any complaints. Continues to have anasarca. His monitor is on hold for which I have placed order to hook his monitor back. We discussed about his clinical condition, substance abuse, heart failure, and chronic kidney disease. The patient's mother and father at bedside. They have been told about the patient's condition including heart failure and chronic kidney disease, and multiple comorbidities. I counseled him about the fact that his condition is really critical. A lot of patients with chronic heart disease and chronic kidney disease, they are at increased risk of morbidity and mortality. All of their questions have been answered. VITAL SIGNS: Currently, vitals temperature 97.8 degrees, pulse 94, respiratory rate 18, blood pressure 137/61, and saturating 98% on room air.General: Does not appear in any acute distress. Oral cavity is moist. Air entry decreased in right infrascapular region. Adequate air entry on left hemithorax. Heart: S1, S2 normal. No murmur, rub, or gallop. Abdomen: Soft. Distended. Appears to have some ascites. Extremities: Bilateral lower extremity edema extending up to bilateral thighs. DIAGNOSTIC: His heart rhythm appears irregularly irregular at the moment. EKG on 11/06 showed to have a sinus rhythm so I am ordering an EKG to make sure he does not have atrial fibrillation. ASSESSMENT AND PLAN: 1. Acute on chronic systolic congestive heart failure with ejection fraction of 15 to 20 percent due to medication and dietary noncompliance complicated by chronic kidney disease stage 3 to stage 4. Continue intravenous Lasix 200 mg q.8 hours and metolazone as per Nephrology's recommendation. Continue carvedilol and Entresto. If the patient does not have adequate urine output, he may eventually need to go on dialysis. He currently does not appear to be in respiratory distress. 2. History of coronary artery disease and right coronary artery stent in the past. Continue aspirin, high-dose statin with hydralazine isosorbide dinitrate. 3. Chronic kidney disease stage 4 to stage 3. Continue him on management as per Nephrology team including calcium acetate. 4. Others: Continue albuterol ipratropium nebulization for shortness of breath with budesonide. Continue colchicine for history of gout. Continue iron carbonyl, ascorbic acid and folic acid for anemia of chronic disease. Continue gabapentin for chronic pain with tramadol. Continue insulin for history of insulin-dependent diabetes mellitus DISPOSITION: Patient remains inside the hospital as we manage, and he needs intravenous diuresis. Plan of care is discussed with the patient and his mother and father at bedside. All of their questions have been answered. cc: Jaime Greene MD MTDD
[2018-11-12] MEDS: VITAMIN D PO SCH ×2 (15:40→17:36)
[2018-11-12] MEDS: HUMULIN 70/30 SUBQ SCH (21:44)
[2018-11-12] MEDS: LIPITOR PO SCH (21:45)
--- NOTE | 2018-11-12 21:59 | PULMONOLOGY PROGRESS NOTE ---
DATE: 11/12/2018 SUBJECTIVE: The patient reports he has been having a good day. He denies shortness of breath. Ends and outs appear to be negative. OBJECTIVE: Vital signs: Blood pressure 117/58, heart rate 91, respiratory rate 18, oxygen saturation 94% on room air. HEENT: Pupils are equal and reactive. Oropharynx is clear. Neck: Supple. Chest: Reveals diminished breath sounds right base. Cardiac exam: S1, S2 without definite murmur or rub. Abdomen: Soft. Extremities: Reveal trace to 1+ peripheral edema. LABORATORIES: White blood count 3.98, hemoglobin 7.5, platelet count 176,000, sodium 140, potassium 3.7, chloride 103, bicarbonate 26, BUN 50, creatinine 2.4. IMPRESSION: A 62-year-old with: 1. Recurrent transudative effusion. 2. Dyspnea on exertion. 3. Systolic heart failure. 4. Total body fluid overload. 5. Acute on chronic renal failure, which is stable with current diuresis regimen. RECOMMENDATIONS: 1. Continue diuresis as tolerated. 2. Continue Entresto for heart failure. 3. Continue fluid restriction. 4. Follow up chest x-ray tomorrow morning. cc: Evan Del Rosario MD
[2018-11-13] MEDS: DUONEB (A & A) INH SCH ×4 (03:41→21:39)
[2018-11-13] MEDS: PROTONIX PO SCH ×2 (05:29→06:38)
[2018-11-13] MEDS: HUMULIN R SUBQ SCH ×4 (06:38→21:42)
[2018-11-13 06:42] LABS: BASO# 0.01 X1000 (0.0-0.2); BASO% 0.3 % (0.0-0.8); EOS# 0.11 X1000 (0.0-0.7); HEMOGLOBIN 7.7 g/dL (14.0-18.0); LYMPH# 1.61 X1000 (1.2-3.4); LYMPH% 43.4 % (20.5-51.1); MCH 26.8 PG (27-31); MCHC 29.6 g/dL (33-37); MCV 90.6 FL (81-99); MONO# 0.68 X1000 (0.11-0.59); MONO% 18.3 % (1.7-9.3); MPV 11.4 FL (7.4-10.4); PLT 155 X1000 (130-400); RBC 2.87 XMIL (4.7-6.1); RDW 21.7 % (11.5-14.5); WBC 3.71 X1000 (4.8-10.8)
[2018-11-13 07:03] LABS: ALBUMIN 2.6 g/dL (3.5-5.0); CALCIUM 8.8 mg/dL (8.8-10.2); CREATININE 2.5 mg/dL (0.7-1.2); MAGNESIUM 1.2 mg/dL (1.5-2.7); PHOSPHORUS 3.9 mg/dL (2.7-4.5); POTASSIUM 3.9 mmol/L (3.5-5.1)
--- NOTE | 2018-11-13 07:39 | Diag Imaging Result Doc PS360 ---
CHEST-2 VIEWS - 11/13/2018 INDICATION: abnormal exam COMPARISON: 11/10/2018 FINDINGS: There is continued increase in size of the right basilar pleural effusion which is now moderate in size. There is a trace left pleural effusion as well. The pulmonary vascular congestion however has resolved. Stable cardiomegaly. IMPRESSION: Mixed changes from prior. Electronically signed by Power Peralta 11/13/2018 7:36 AM
[2018-11-13] MEDS: ICAR-C PO SCH (08:18)
[2018-11-13] MEDS: COLCRYS PO SCH (08:18)
[2018-11-13] MEDS: ENTRESTO 24 MG-26 MG TABLET PO SCH ×2 (08:18→21:38)
[2018-11-13] MEDS: ZYLOPRIM PO SCH ×2 (08:18→21:38)
[2018-11-13] MEDS: COREG PO SCH ×2 (08:18→21:38)
[2018-11-13] MEDS: ASPIRIN PO SCH (08:18)
[2018-11-13] MEDS: HEPARIN SUBQ SCH ×2 (08:18→21:39)
[2018-11-13] MEDS: LASIX 200 MG in NS 25 ML IV SCH ×3 (08:18→23:51)
[2018-11-13] MEDS: PHOSLO PO SCH ×3 (08:18→16:40)
[2018-11-13] MEDS: NEURONTIN PO SCH ×2 (08:18→21:38)
[2018-11-13] MEDS: FOLIC ACID PO SCH (08:18)
[2018-11-13] MEDS: BIDIL PO SCH ×3 (08:19→21:38)
[2018-11-13] MEDS: ZAROXOLYN PO SCH (08:19)
[2018-11-13] MEDS: MIRALAX PO SCH ×2 (08:19→21:42)
[2018-11-13] MEDS: PULMICORT INH SCH ×2 (09:53→21:39)
[2018-11-13] MEDS: MAGNESIUM SULFATE 2 GM/S.W.I. 2 GM/50 ML IVPB IV SCH ×2 (10:42→14:37)
[2018-11-13] MEDS: MAG-OX PO SCH ×2 (10:43→21:38)
--- NOTE | 2018-11-13 15:08 | NEPHROLOGY PROGRESS NOTE ---
DATE: 11/13/2018 DATE AND TIME: Date seen , time seen 0645. SUBJECTIVE: Mr. Stewart is sitting up in bed. States that he is feeling just a little bit better. States that he is going to the bathroom quite frequently secondary to his increased Lasix. OBJECTIVE: Vital Signs: His most recent vital signs: His last temperature 98.3, blood pressure 126/56, heart rate 88, respirations 16. He is on room air. Last recorded saturation is 100%. He has had 1400 in, he has had 2300 out to void. LABS: Sodium is 143, potassium 3.9, chloride 103, CO2 28, BUN 51, creatinine 2.5, glucose is 109. The patient has an anion gap of 12. His calcium is 8.8, phosphorus 3.9, magnesium 1.2, with an albumin of 2.6. The patient has a white count of 3.71, hemoglobin 7.7, hematocrit 26, platelet count 155,000. PHYSICAL EXAMINATION: General: This is a 62-year-old male resting quietly in bed. He appears chronically ill. No acute distress. Skin: Warm and dry. HEENT: Normocephalic, atraumatic. Conjunctivae pale. He has LYNDA. Mucous membranes are dry. Neck: Supple. Trachea midline. He continues with positive JVD in the upright position. Cardiovascular: Regular rate and rhythm. He has an S4 present. Lungs: Clear to auscultation anterior. Equal excursion, now on room air. Abdomen: Soft, nontender. Positive bowel sounds. Genitourinary: Diallo catheter has been removed. Patient is voiding adequate amounts. Extremities: Continues with 2 to 3+ lower extremity edema. This is not changed over the last 2 to 3 days with his increased Lasix and addition of Zaroxolyn. This edema goes up into his hip regions. Neurologic: He is alert and oriented x 3. ASSESSMENT AND PLAN: 1. Acute on chronic kidney disease. Patient's BUN and creatinine have remained fairly stable in spite of the addition of Zaroxolyn to his Lasix regimen. He has had adequate urine output. We will continue to monitor. 2. Electrolytes, acid-base balance. These are acceptable. 3. Anemia. This is low, but stable. 4. Fluid volume overload. The patient has had a good response to his Lasix and Zaroxolyn, though no actual increase in comparison to the day before. He remains with positive JVD. He continues with lower extremity edema up into his mid hip region and his chest x-ray shows continued worsening of his pulmonary effusions. I would like to thank you for allowing us to follow with this patient. Dictated by CLAY Gary for Baron Lemon MD Face to face encounter, data reviewed, discussed with Amaris Grissom on 11/14/18. I agree with the above assessment and plan of care. cc: CLAY Gary MD [facility]
--- NOTE | 2018-11-13 15:59 | PROGRESS NOTE ---
DATE: 11/13/2018 INTERVAL HISTORY: There was one report of his heart rate being 40 in the chart. However, I called the telemetry, and I was informed there was no such event. The patient did have some disturbance in the leads, which might be recorded as a low heart rate. SUBJECTIVE: Patient feels the same. Denies worsening shortness of breath. He was able to work out with physical therapy and also come out of bed and walked through the hallway. However, he was feeling weak. OBJECTIVE: Vital Signs: Temperature 97.6 degrees, pulse of 89 per minute, respiratory rate 20 per minute, blood pressure 112/54, saturating 100% on room air. General: Does not appear in any acute distress. HEENT: Oral cavity is moist. Lungs: Air entry decreased in right infrascapular region, which is worse today than yesterday. Adequate air entry on left hemithorax. Heart: S1, S2 normal. No murmur, rub, or gallop. Abdomen: Soft, distended. He does have shifting dullness. Extremities: Bilateral lower extremity edema, extending up to bilateral distal thighs. Input and output: Suggest in the last 24 hours he had 2.3 L of urine with a minimal net negative of -1 L. LABORATORIES: Suggestive of WBC count of 3.7, hemoglobin of 7.7, platelet of 155,000. He does have elevated BUN and creatinine with chronic kidney disease in stage 3 to stage 4 level. I will follow up with a proBNP tomorrow. IMAGING: He got chest x-ray today, which suggests that his pleural effusion on the right side is worsening from previous examination. ASSESSMENT AND PLAN: 1. Acute on chronic systolic congestive heart failure with ejection fraction of 15% to 20% due to medication and dietary noncompliance, cocaine use disorder and cocaine abuse, chronic kidney disease (CKD) stage 3 to stage 4. Continue intravenous Lasix 200 mg IV q.8 h. with metolazone as per Nephrology recommendation. Continue carvedilol, Entresto, isosorbide dinitrate, and hydralazine with metolazone. He does not have any hemodynamic instability at the moment. 2. History of coronary artery disease status post right coronary artery stent in the past. Continue aspirin, high-dose statin. 3. Chronic kidney disease, stage 3 to stage 4, in the setting of possible hypertensive nephropathy or cardiorenal syndrome. Follow up with urine electrolytes. Nephrology on board. Continue calcium acetate for hyperphosphatemia and continue magnesium supplements for hypomagnesemia. 4. Recurrent right side transudative pleural effusion. Not in any respiratory distress. We will continue to monitor. Pulmonology on board. 5. Anemia of chronic disease. Continue iron carbonyl, ascorbic acid, and folic acid. 6. Others: Continue albuterol/ipratropium nebulization for shortness of breath with budesonide. Continue colchicine for gout. Continue gabapentin with tramadol for chronic pain. Continue insulin for history of insulin-dependent diabetes mellitus. DISPOSITION: Patient remains inside the hospital for need for intravenous diuresis. Plan of care discussed with the patient. All of his questions have been answered. cc: Jaime Greene MD
[2018-11-13] MEDS: LIPITOR PO SCH (21:38)
[2018-11-13] MEDS: HUMULIN 70/30 SUBQ SCH (21:38)
[2018-11-14] MEDS: DUONEB (A & A) INH SCH ×4 (04:37→21:17)
[2018-11-14] MEDS: PROTONIX PO SCH (06:25)
[2018-11-14] MEDS: HUMULIN R SUBQ SCH ×4 (06:43→21:26)
[2018-11-14 07:16] LABS: ALBUMIN 2.6 g/dL (3.5-5.0); CALCIUM 8.6 mg/dL (8.8-10.2); CREATININE 2.8 mg/dL (0.7-1.2)
[2018-11-14] MEDS: PULMICORT INH SCH ×2 (09:39→21:17)
[2018-11-14] MEDS: LASIX 200 MG in NS 25 ML IV SCH ×2 (11:26→18:05)
[2018-11-14] MEDS: ENTRESTO 24 MG-26 MG TABLET PO SCH ×2 (11:27→21:22)
[2018-11-14] MEDS: ZAROXOLYN PO SCH (11:27)
[2018-11-14] MEDS: ZYLOPRIM PO SCH ×2 (11:27→21:23)
[2018-11-14] MEDS: PHOSLO PO SCH ×3 (11:27→18:06)
[2018-11-14] MEDS: MAG-OX PO SCH ×2 (11:28→21:23)
[2018-11-14] MEDS: COLCRYS PO SCH (11:30)
[2018-11-14] MEDS: NEURONTIN PO SCH ×2 (11:31→21:22)
[2018-11-14] MEDS: ASPIRIN PO SCH (11:31)
[2018-11-14] MEDS: COREG PO SCH ×2 (11:31→21:23)
[2018-11-14] MEDS: ICAR-C PO SCH (11:31)
[2018-11-14] MEDS: FOLIC ACID PO SCH (11:32)
[2018-11-14] MEDS: HEPARIN SUBQ SCH ×2 (11:32→21:22)
[2018-11-14] MEDS: BIDIL PO SCH ×3 (11:32→21:23)
[2018-11-14] MEDS: MIRALAX PO SCH ×3 (11:33→21:22)
[2018-11-14] MEDS: ULTRAM PO PRN (11:41)
--- NOTE | 2018-11-14 15:03 | PROGRESS NOTE ---
DATE: 11/14/2018 INTERVAL HISTORY: No acute events overnight. The patient did have episode of hypoglycemia overnight with blood sugars in 60s. He was asymptomatic. He ate something, after which his hypoglycemia has improved. Discussed about his clinical findings. The patient's family including mother, father and significant other at bedside. I discussed with him about the patient's course and answered all of the questions. I discussed with them about increasing serum creatinine and persistently elevated proBNP. The patient denies any chest pain or shortness of breath. OBJECTIVE: Vital signs: Temperature 99.1 degrees, pulse 90, respiratory rate 18, blood pressure 100/62, saturating 96% on room air. General: On physical examination, he does not appear in any acute distress. Mouth: Oral cavity is moist. Lungs: Decreased air entry in the right infrascapular region. Adequate air entry on left hemithorax. Heart: S1, S2 normal. No murmur, rub or gallop. Abdomen: Soft, nondistended with shifting dullness. Extremities: Bilateral lower extremity edema extending up to thigh. Input and output suggest he had 1.5 L yesterday and only 200 mL so far charted. LAB DATA: Today suggestive of BUN of 57 and creatinine of 2.8. Blood sugars 205. His proBNP is still more than 35,000. MICROBIOLOGY: No new microbiological data. IMAGING: No new imaging, except chest x-ray yesterday which had suggested reaccumulation of right- sided pleural effusion. ASSESSMENT AND PLAN: 1. Acute on chronic systolic congestive heart failure with ejection fraction of 20% due to medication and dietary noncompliance. 2. Cocaine use disorder with cocaine abuse. 3. Chronic kidney disease stage III to stage IV. Continue intravenous Lasix 200 mg intravenous every 8 hours with metolazone as per Nephrology recommendation. Continue carvedilol, Entresto, isosorbide dinitrate and hydralazine. He is not in hemodynamic instability at the moment. He may eventually need hemodialysis with ultrafiltration considering his urine output has not been adequate considering his volume status. I will appreciate Nephrology recommendation. 4. History of coronary artery disease, status post right coronary artery stent in the past. Continue aspirin, high-dose statin. 5. Chronic kidney disease stage III to stage IV in the setting of hypertensive nephropathy, cardiorenal syndrome. Urine electrolytes suggest proteinuria of more than 1 gram, though it is in sub nephrotic range and elevated urine creatinine. Continue calcium acetate for hyperphosphatemia and magnesium supplements for hypomagnesemia. I will follow up with magnesium level tomorrow. 6. Recurrent right-sided transudative pleural effusion, not in any respiratory distress. I will avoid any thoracenteses since he is not in any distress. 7. Anemia of chronic disease. Continue iron carbonyl, ascorbic acid and folic acid. 8. Continue albuterol ipratropium nebulization for shortness of breath with budesonide, colchicine for gout, tramadol and gabapentin for chronic pain, insulin for history of insulin- dependent diabetes mellitus. DISPOSITION: The patient remains inside the hospital for need for intravenous diuretics. Plan has been discussed with the patient, his mother and father. All of their questions have been answered satisfactorily. I will continue heparin subcutaneous for DVT prophylaxis. cc: Jaime Greene MD
--- NOTE | 2018-11-14 18:07 | NEPHROLOGY PROGRESS NOTE ---
DATE: 11/14/2018 SUBJECTIVE: He is sitting up. He is in good spirits. He thinks his swelling is improving. Minimal shortness of breath. OBJECTIVE: Vital Signs: Blood pressure 93/49, heart rate 94, respiration 18, afebrile. Intake 1.4 L. Output 1.5 L. General: No acute distress. Chronically ill. Skin: Warm and dry. HEENT: Conjunctivae are pink. Oropharynx is dry. Neck: Neck veins are distended. Heart: Regular. No gallops. Lungs: Equal. No crackles. Abdomen: Soft, nontender. Distended. Bowel sounds present. Extremities: 2 to 3+ edema. No clubbing or cyanosis. IMPRESSION: Cardiorenal syndrome. His kidney function is essentially unchanged but his urine output is low despite aggressive diuretic therapy with 200 mg of Lasix 3 times daily and Zaroxolyn 10 mg daily. I had another long discussion with him regarding his kidney disease, his heart disease, and the role of his medications as well as dialysis in the management of his illness. We will continue his current treatment with a plan to consider dialysis on Saturday if he is not improved. cc: Baron Lemon MD
--- NOTE | 2018-11-14 18:27 | PULMONOLOGY PROGRESS NOTE ---
DATE: 11/14/2018 SUBJECTIVE: The patient reports he had a rough day yesterday due to hypoglycemia. He reports his shortness of breath is at baseline. OBJECTIVE: Vital Signs: The patient has been afebrile for the last 24 hours. BP 93/49, heart rate 94, respiratory rate 18, oxygen saturation 95% on room air. HEENT: Pupils are equal and reactive. Oropharynx is clear . Neck: Is supple. Chest: Reveals decreased breath sounds right base. Cardiac exam: S1-S2. Abdomen: Is soft. Extremities: Reveal trace edema. LABORATORIES: Chest x-ray reveals increasing effusion on the right with small effusion on the left. Vascular congestion has diminished. ProBNP is greater than 35,000. It has been greater than 35,000 during this entire hospitalization. Sodium 144, potassium 4.0, chloride 103, bicarbonate 28, BUN 57, creatinine 2.8. IMPRESSION: A 62-year-old with 1. Congestive heart failure, systolic in nature. 2. Recurrent transudative effusion. 3. Dyspnea on exertion. 4. Total body fluid over. 5. Acute on chronic renal insufficiency/renal failure with slight worsening in parameters. RECOMMENDATION: 1. Continue current medicines for heart failure. 2. Continue fluid restriction. 3. Thoracentesis p.r.n. If he requires frequent thoracentesis then a PleurX catheter might be considered. cc: Evan Del Rosario MD
[2018-11-14] MEDS: LIPITOR PO SCH (21:22)
[2018-11-14] MEDS: HUMULIN 70/30 SUBQ SCH (21:22)
[2018-11-14] MEDS ORDERED: INSULIN PEN NEEDLES ONE (21:44)
[2018-11-15] MEDS: LASIX 200 MG in NS 25 ML IV SCH ×3 (00:42→16:15)
[2018-11-15 00:53] LABS: URINE SOURCE VOIDED
[2018-11-15 00:59] LABS: BILIRUBIN URINE NEGATIVE (NEGATIVE); BLOOD URINE NEGATIVE (NEGATIVE); COLOR YELLOW; GLUCOSE URINE NEGATIVE (NEGATIVE); KETONE URINE NEGATIVE (NEGATIVE); LEUKOCYTES URINE NEGATIVE (NEGATIVE); NITRITE URINE NEGATIVE (NEGATIVE); PH URINE 5.5; PROTEIN URINE 30 mg/dL (NEGATIVE); TURBIDITY URINE CLEAR (CLEAR); UR EPITHELIAL CELLS <10 /HPF (<10); URINE BACTERIA NEGATIVE /HPF; URINE RBC <10 /HPF (<10); URINE WBC <10 /HPF (<10); UROBILINOGEN URINE NORMAL (NORMAL)
[2018-11-15 01:39] LABS: UR AMPHETAMINES QUAL NONE DETECTED (NONE DETECT); UR BARBITUATES QUAL NONE DETECTED (NONE DETECT); UR BENZODIAZEPIN QUAL NONE DETECTED (NONE DETECT); UR CANNABINOIDS QUAL NONE DETECTED (NONE DETECT); UR COCAINE QUAL NONE DETECTED (NONE DETECT); UR METHADONE QUAL NONE DETECTED (NONE DETECT); UR OPIATES QUAL NONE DETECTED (NONE DETECT); UR OXYCODONE QUAL NONE DETECTED (NONE DETECT); UR PCP QUAL NONE DETECTED (NONE DETECT)
[2018-11-15] MEDS ORDERED: NS 250 ML IV ONE (03:06)
[2018-11-15] MEDS: DUONEB (A & A) INH SCH ×3 (03:13→21:00)
[2018-11-15] MEDS ORDERED: NS 1,000 ML ONE (03:24)
[2018-11-15] MEDS ORDERED: DOPAMINE 800 MG/D5W 800 MG/500 ML IV.SOLN IV SCH (04:15)
[2018-11-15] MEDS: PROTONIX PO SCH (06:22)
[2018-11-15] MEDS: HUMULIN R SUBQ SCH (06:22)
[2018-11-15 07:29] LABS: ALBUMIN 2.7 g/dL (3.5-5.0); CREATININE 3.1 mg/dL (0.7-1.2); PHOSPHORUS 4.5 mg/dL (2.7-4.5); POTASSIUM 4.2 mmol/L (3.5-5.1)
[2018-11-15 08:10] LABS: BASO# 0.02 X1000 (0.0-0.2); BASO% 0.4 % (0.0-0.8); EOS% 1.8 % (0.0-10.0); HEMATOCRIT 25.2 % (42.0-52.0); HEMOGLOBIN 7.4 g/dL (14.0-18.0); LYMPH% 32.7 % (20.5-51.1); MCHC 29.4 g/dL (33-37); MCV 88.4 FL (81-99); MONO# 0.65 X1000 (0.11-0.59); MONO% 11.8 % (1.7-9.3); MPV 10.9 FL (7.4-10.4); NEUT# 2.94 X1000 (1.4-6.5); NEUT% 53.3 % (42.2-75.2); PLT 151 X1000 (130-400); RBC 2.85 XMIL (4.7-6.1); RDW 21.5 % (11.5-14.5); WBC 5.51 X1000 (4.8-10.8)
[2018-11-15] MEDS: ICAR-C PO SCH (08:39)
[2018-11-15] MEDS: COREG PO SCH ×2 (08:39→20:56)
[2018-11-15] MEDS: COLCRYS PO SCH (08:39)
[2018-11-15] MEDS: ZAROXOLYN PO SCH (08:39)
[2018-11-15] MEDS: PHOSLO PO SCH ×3 (08:39→16:15)
[2018-11-15] MEDS: NEURONTIN PO SCH ×2 (08:39→20:57)
[2018-11-15] MEDS: MAG-OX PO SCH ×2 (08:40→20:58)
[2018-11-15] MEDS: ASPIRIN PO SCH (08:40)
[2018-11-15] MEDS: ZYLOPRIM PO SCH ×2 (08:40→20:57)
[2018-11-15] MEDS: FOLIC ACID PO SCH (08:40)
[2018-11-15] MEDS: HEPARIN SUBQ SCH ×2 (08:40→20:56)
[2018-11-15] MEDS: ENTRESTO 24 MG-26 MG TABLET PO SCH ×2 (08:41→20:57)
[2018-11-15] MEDS: MIRALAX PO SCH ×2 (08:41→20:58)
--- NOTE | 2018-11-15 09:30 | Diag Imaging Result Doc PS360 ---
EXAM: CT HEAD W/O CONTRAST INDICATION: AMS TECHNIQUE: This exam was performed using automated exposure control, adjustment of mA or kV according to patient size, and/or use of iterative reconstruction technique. COMPARISON: None. FINDINGS: There is mild diffuse brain atrophy. There is patchy low attenuation in the periventricular and subcortical white matter suggesting at least moderate microangiopathy. There is no definite acute infarct given the limited sensitivity of CT versus MRI. There is no discrete intracranial mass, mass effect, or intracranial hemorrhage. The surrounding soft tissues and bony structures are essentially unremarkable. IMPRESSION: Chronic appearing changes as described. No definite acute intracranial pathology by CT. Electronically signed by Matthew Loyd 11/15/2018 9:27 AM
[2018-11-15] MEDS: PULMICORT INH SCH ×2 (09:52→21:00)
--- NOTE | 2018-11-15 10:29 | PROGRESS NOTE ---
DATE: 11/15/2018 INTERVAL HISTORY: Overnight, the patient had started becoming more confused. His blood pressure was hypotensive with systolic blood pressure of 78, diastolic of 36. The patient was confused and he was telling that he is not feeling good. Considering his profound hypotension, a dopamine drip was ordered and patient was transferred to ICU. CT scan and EKG where ordered and the patient was transferred to ICU. However, he was never started on dopamine drip because the patient's blood pressure had normalized by the time he reached ICU. CT scan head was unremarkable for any acute pathology. EKG had suggested sinus rhythm. He did have old ST changes with frequent premature ventricular contractions. OBJECTIVE: General: Patient is feeling fine in the morning. Denies chest pain, shortness of breath, palpitation and dizziness. He is alert oriented x3. We discussed about possible hypotension contributing to his altered mental status and multiple medications contributing to his hypotension. I answered all of his questions currently. Vital signs: Temperature of 99 degrees, pulse of 104, respiratory rate 12, blood pressure 110/76, saturating 91% on room air. PHYSICAL EXAMINATION: General: Does not appear in any acute distress. Oral cavity is moist. Lungs: Decreased air entry in right infrascapular region. No wheeze or rhonchi. Adequate air entry on left hemithorax without wheeze, rhonchi, or crackles. Cardiovascular: S1, S2 normal. On monitor he had frequent premature ventricular contractions. No murmur, rub, or gallop. Abdomen: Soft, distended with shifting dullness. Extremities: Bilateral lower extremity edema extending up to thigh. Input and output suggests that he had only 4.75 mL urine charted. He has had a bowel movement yesterday. LABORATORY DATA: Suggestive of hemoglobin of 7.4, platelet of 151,000. Normal electrolytes, elevated BUN and creatinine with chronic kidney disease stage 4, which is which has been worsening since his admission due to Lasix. His blood sugars are mostly in acceptable range currently, except a blood sugar of 79. He his troponin has been showing flat trend with 0.09 of 1st troponin. The next troponin was 0.08. His urine toxicology analysis was repeated overnight which did not detect any recreational substances. ASSESSMENT AND PLAN: 1. Acute encephalopathy. This was likely in the setting of hypotension. It is resolved now. CT scan head was unremarkable. EKG had old ST changes with frequent premature ventricular contractions. Troponins have been negative. Continue to monitor patient inside ICU for another 24 hours. 2. Profound hypotension, symptomatic, likely in the setting of multiple antihypertensive and diuretic drugs. I stopped Isosorbide/hydralazine. Continue him on carvedilol, furosemide, metolazone, and Entresto. He didn't actually require Dopamine. 3. Acute on chronic systolic congestive heart failure with ejection fraction of 20%. His acute exacerbation is likely in the setting of medication and dietary noncompliance and intermittent cocaine abuse. Continue Lasix at current dose of 200 mg intravenous q.8 hours with metolazone. He would likely require hemodialysis with ultrafiltration considering his profound volume overload. Currently, he is not in respiratory distress. 4. Chronic kidney disease stage II I to stage IV due to hypertensive and diabetic nephropathy with cardiorenal syndrome. Continue diuretic as per Nephrology recommendation. Continue calcium acetate for hyperphosphatemia and daily magnesium supplement. 5. History of coronary artery disease status post right coronary artery stent in the past. Continue aspirin, high-dose statin. 7. Recurrent right-sided transudative pleural effusion, currently not in any respiratory distress. Follow up with chest x-ray on October 20, he may eventually need a PleurX catheter considering he has been requiring multiple thoracenteses. 8. Anemia of chronic kidney disease. Continue iron carbonyl, ascorbic acid and folic acid. 9. Others. Continue albuterol ipratropium nebulization for shortness of breath with budesonide, colchicine for gout, tramadol and gabapentin for chronic pain, decrease the dose of insulin considering his hypoglycemic episodes. DISPOSITION: More than 30 minutes of critical care time was spent in taking care of this patient. The patient was profoundly hypotensive and was started was ordered dopamine drip. I will monitor him in ICU for 24 hours to make sure his blood pressure remains stable and his mental status remains stable. All of his questions have been answered. Yesterday I had discussed plan of care with the patient's mother and father at bedside. cc: Jaime Greene MD MTDD
[2018-11-15] MEDS: HUMALOG SUBQ SCH ×4 (10:50→20:55)
--- NOTE | 2018-11-15 15:24 | PULMONOLOGY PROGRESS NOTE ---
DATE: 11/15/2018 INTERIM HISTORY: Patient was transferred down to the ICU for confusion. He currently is awake, alert, conversant, and does not appear significantly different at this juncture than he did yesterday or the day before. OBJECTIVE: PHYSICAL EXAMINATION: General: Reveals a well-developed, well-nourished black male who is conversant with slightly pressured speech, in no distress bleed. Vital signs: blood pressure 101/64, heart rate 83, respiratory rate 22, oxygen saturation 94% on room air. HEENT: Pupils are equal and reactive. Oropharynx appears clear. Neck: Supple. Chest: Reveals diminished breath sounds, right base. Cardiac Exam: S1, S2. Abdomen: Soft. Extremities: Reveal trace edema. LABORATORY DATA: CT scan of the brain without acute changes. White blood count 5.51, hemoglobin 7.4, platelet count 151,000. Sodium 139, potassium 4.2, chloride 97, bicarbonate 29, BUN 63, creatinine 3.1. IMPRESSION: A 62-year-old with: 1. Congestive heart failure, systolic. 2. Recurrent transudative effusion. 3. Transient altered mental status, possible related to hypotension. 4. Total body fluid overload. RECOMMENDATION: 1. Continue to diurese if tolerated per Nephrology recommendation. 2. Dialysis is being considered for cardiorenal syndrome. 3. Overall prognosis is guarded to poor. cc: Evan Del Rosario MD
--- NOTE | 2018-11-15 19:37 | CARDIOLOGY PROGRESS NOTE ---
DATE: 11/15/2018 CHIEF COMPLAINT: Confusion, shortness of breath, hypotension. SUBJECTIVE: Mr. Stewart had an episode of confusion last night on the 4th floor. Then he complained of chest pain. His blood pressure dropped. They became concerned and decided to bring the patient to the ICU for observation. Over here, he has stabilized. They were thinking about putting him on dopamine; however, they never started it. OBJECTIVE: Vital Signs: Now his blood pressure is back up to 126/58. His pulse is 82. He has trigeminy/PVCs. Respirations 13. His temperature is 98.4. General: He is not in any discomfort. HEENT: Unremarkable. Chest: Diminished breath sounds at bases. No rales. Cardiovascular: Heart sounds regular with PVCs or extrasystoles. Abdomen: Nontender. Extremities: Showed no edema. Neurological: Follows commands. Move all 4 extremities. BLOOD WORK: Sodium 139, potassium 4.2, BUN 63, creatinine 3.1. His hemoglobin is 7.4, hematocrit 25.2, white cell count 5,510, platelet count 151,000. IMPRESSION: 1. Patient who has chronic systolic heart failure. 2. Hypotension. 3. Chronic kidney disease. 4. Severe coronary heart disease with previous stent to right coronary artery. 5. Peripheral vascular disease. 6. Diabetes mellitus. RECOMMENDATIONS: At this time the patient appears to be stable. The reason for the chest pain and the hypotension is unclear. His troponin levels are really for the most part unchanged. His troponins were 0.082 and 0.057 on November 05 and . Then last night at 3:20 in the morning it was 0.099 and then 0.084. No big change. His 12-lead ECG shows sinus rhythm with PVCs, T-wave inversion in lateral leads, which has been present before. There is really no significant change on his EKG. His most recent chest x-ray from the showed mixed changes, bibasilar pleural effusions, and trace left pleural effusion. Head CT yesterday showed chronic-appearing changes. At this time we do not have any specific suggestions. We can put on hold the isosorbide dinitrate and hydralazine as long as his blood pressure is low. I agree with observation for the next 24 hours in the ICU, and then he can go back to the 3rd or 4th floor to continue his progress and management. cc: Irwin Palencia MD
[2018-11-15] MEDS: LIPITOR PO SCH (20:57)
[2018-11-15] MEDS ORDERED: HUMULIN 70/30 SUBQ SCH (21:00)
--- NOTE | 2018-11-15 21:52 | NEPHROLOGY PROGRESS NOTE ---
DATE: 11/15/2018 SUBJECTIVE: He was moved down to the intensive care unit because of altered mental status. Today he is awake, alert, appropriate and interacts with me. OBJECTIVE: Vital Signs: Blood pressure 92/52, heart rate 89, respirations 16, afebrile. Intake 400 mL, output 475 mL. General: No acute distress. Skin: Warm and dry. Neck: Neck veins are distended. Heart: Regular. Lungs: Equal. Extremities: Have 3+ edema. No clubbing or cyanosis. IMPRESSION: Cardiorenal syndrome. No improvement. Continue furosemide and metolazone. We will make a decision about dialysis on Saturday. cc: Baron Lemon MD
[2018-11-16] MEDS: LASIX 200 MG in NS 25 ML IV SCH ×4 (00:39→23:04)
[2018-11-16] MEDS: DUONEB (A & A) INH SCH ×5 (03:42→21:51)
[2018-11-16] MEDS: HUMALOG SUBQ SCH ×4 (06:08→21:57)
[2018-11-16] MEDS: PROTONIX PO SCH (06:13)
[2018-11-16 07:31] LABS: ALBUMIN 2.8 g/dL (3.5-5.0); CALCIUM 8.7 mg/dL (8.8-10.2); CREATININE 2.8 mg/dL (0.7-1.2); PHOSPHORUS 4.2 mg/dL (2.7-4.5); POTASSIUM 4.3 mmol/L (3.5-5.1)
--- NOTE | 2018-11-16 07:54 | Diag Imaging Result Doc PS360 ---
EXAM: CHEST-PORTABLE INDICATION: abnormal exam TECHNIQUE: One view COMPARISON: 11/13/2018 FINDINGS: The moderate-sized right pleural effusion on the right with adjacent atelectasis and/or infiltrate is stable. The trace left effusion has grossly resolved by plain radiograph. No new consolidation appreciated. Cardiac silhouette is stable. IMPRESSION: Gross resolution of the trace left effusion. The larger right effusion is essentially stable. Electronically signed by Matthew Loyd 11/16/2018 7:51 AM
[2018-11-16] MEDS: HEPARIN SUBQ SCH ×3 (08:42→21:57)
[2018-11-16] MEDS: PHOSLO PO SCH ×3 (08:43→16:49)
[2018-11-16] MEDS: MAG-OX PO SCH ×3 (08:43→21:57)
[2018-11-16] MEDS: ASPIRIN PO SCH (08:43)
[2018-11-16] MEDS: ZYLOPRIM PO SCH ×3 (08:43→21:57)
[2018-11-16] MEDS: COREG PO SCH ×3 (08:43→21:56)
[2018-11-16] MEDS: ZAROXOLYN PO SCH (08:43)
[2018-11-16] MEDS: ICAR-C PO SCH (08:43)
[2018-11-16] MEDS: COLCRYS PO SCH (08:43)
[2018-11-16] MEDS: NEURONTIN PO SCH ×3 (08:43→21:57)
[2018-11-16] MEDS: FOLIC ACID PO SCH (08:43)
[2018-11-16] MEDS: ENTRESTO 24 MG-26 MG TABLET PO SCH ×3 (08:44→21:56)
[2018-11-16] MEDS: MIRALAX PO SCH ×3 (08:44→21:57)
--- NOTE | 2018-11-16 10:29 | PROGRESS NOTE ---
DATE: 11/16/2018 INTERVAL HISTORY: No acute events overnight. SUBJECTIVE: The patient is feeling fine. Denies any complaints. We again discussed with him about his heart failure, kidney dysfunction. I answered all of his questions. We discussed with him about Nephrology planning potentially dialysis catheter, and the decision will be made on Saturday. OBJECTIVE: Current Vital Signs: Temperature 98.2 degrees, pulse 90 per minute, blood pressure 120/67, saturating 94% on room air, respiratory rate of 12. General: Does not appear in any acute distress. No pallor, cyanosis, clubbing, or icterus. HEENT: Oral cavity moist. Lungs: Air entry decreased in right infrascapular region with mild inspiratory crackles. No wheeze or rhonchi. Heart: S1, S2 normal. No murmur, rub, or gallop. His PVCs are significantly diminished on monitor today. Abdomen: Soft, distended with distinct dullness. Extremities: He had decreased radial pulses bilaterally. Bilateral lower extremity edema extending up to thigh level. Input and output suggest he is making minimal amount of urine. LABORATORY DATA: Labs today are suggestive of BUN of 66, creatinine of 2.8, with what appears to be CKD stage 4, acceptable range of hyperglycemia. His calcium is 8.7. His phosphorus was 4.2. He continues to have low albumin. MICROBIOLOGY: No data. IMAGING: Chest x-ray today suggests gross resolution of trace left pleural effusion. Large right effusion is essentially stable. ASSESSMENT AND PLAN: 1. 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 CT scan of head was unremarkable. Troponins were showing flat trend. Electrocardiogram did not have new ST-T changes. This was likely drug- induced hypotension because of multiple antihypertensive and diuretic medication causing his encephalopathy. 2. Acute on chronic systolic congestive heart failure with ejection fraction of 20%. His acute exacerbation is likely in the setting of medication and dietary noncompliance and intermittent cocaine abuse. Continue current dose of Lasix with metolazone. Nephrology on board, and the decision regarding dialysis will be made early next week. The patient is in agreement. 3. Chronic kidney disease stage 3 to stage 4 due to hypertensive and diabetic nephropathy with current cardiorenal syndrome, stable. Continue diuretics as per Nephrology. Plan for hemodialysis sometime next week according to Nephrology. Discussing with the patient. 4. Recurrent right-sided transudative pleural effusion in the setting of congestive heart failure, stable. The patient is not in any acute distress. 5. History of coronary artery disease, status post right coronary artery stent in the past. Continue aspirin, high-dose statin. 6. Anemia of chronic disease. Continue iron carbonyl, ascorbic acid, folic acid. Currently stable. 7. Others. Continue albuterol/ipratropium nebulization. Shortness of breath, budesonide for history of chronic obstructive pulmonary disease. Colchicine for gout. Tramadol and gabapentin for chronic pain. Currently, his blood sugars are better on only sliding scale insulin. 8. Disposition. I will transfer the patient out of the intensive care unit to routine medical floor. Plan of care discussed with him. All of his questions have been answered. cc: Jaime Greene MD MTDD
[2018-11-16] MEDS: PULMICORT INH SCH ×2 (11:23→20:33)
--- NOTE | 2018-11-16 11:31 | PULMONOLOGY PROGRESS NOTE ---
DATE: 11/16/2018 SUBJECTIVE: The patient is awake, alert, and conversant. He is anxious to leave the ICU. He remains reluctant to consider dialysis. OBJECTIVE: Vital Signs: Blood pressure 115/56, heart rate 93, respiratory rate 19 and unlabored. Oxygen saturation 93% on room air. HEENT: Pupils are equal and reactive. Oropharynx is clear. Neck: Supple. Chest: Reveals diminished breath sounds right base. Cardiac exam: S1-S2. Abdomen: Soft. Extremities: Reveal trace edema. LABORATORIES: Sodium 140, potassium 4.3, chloride 98, bicarbonate 29, BUN 26, creatinine 2.8, albumin 2.8. IMAGING: Chest x-ray reveals moderate right-sided pleural effusion with resolution of left-sided pleural effusion. Right-sided effusion is stable. IMPRESSION: A 62-year-old with: 1. Recurrent transudative pleural effusion. 2. Congestive heart failure which is systolic in nature. 3. Acute on chronic kidney disease. RECOMMENDATIONS: 1. Continue bronchial hygiene. 2. Continue to balance intake and output. 3. Overall prognosis is guarded to poor. cc: Evan Del Rosario MD
[2018-11-16] MEDS: LIPITOR PO SCH ×2 (19:53→21:57)
[2018-11-16] MEDS: ULTRAM PO PRN (19:53)
[2018-11-17] MEDS: ZOFRAN IV PRN (02:13)
[2018-11-17] MEDS: DUONEB (A & A) INH SCH ×4 (03:44→21:48)
[2018-11-17] MEDS: PROTONIX PO SCH (06:02)
[2018-11-17] MEDS: HUMALOG SUBQ SCH ×4 (06:06→22:00)
[2018-11-17 06:43] LABS: BASO# 0.01 X1000 (0.0-0.2); BASO% 0.2 % (0.0-0.8); EOS# 0.04 X1000 (0.0-0.7); EOS% 0.6 % (0.0-10.0); HEMATOCRIT 24.9 % (42.0-52.0); HEMOGLOBIN 7.3 g/dL (14.0-18.0); IMM GRAN# 0.02 X1000 (0.0-0.04); IMM GRAN% 0.3 % (0.0-0.5); LYMPH# 1.98 X1000 (1.2-3.4); LYMPH% 30.5 % (20.5-51.1); MCH 26.2 PG (27-31); MCHC 29.3 g/dL (33-37); MCV 89.2 FL (81-99); MONO# 0.81 X1000 (0.11-0.59); MONO% 12.5 % (1.7-9.3); MPV 10.6 FL (7.4-10.4); NEUT# 3.64 X1000 (1.4-6.5); NEUT% 55.9 % (42.2-75.2); PLT 143 X1000 (130-400); RBC 2.79 XMIL (4.7-6.1); RDW 21.3 % (11.5-14.5)
--- NOTE | 2018-11-17 08:14 | EKG Report ---
Test Performed on : 11/15/2018 03:13:29 AM Test Reason : chest pain Blood Pressure : / mmHG Vent. Rate : 089 BPM Atrial Rate : 089 BPM P-R Int : 080 ms QRS Dur : 110 ms QT Int : 422 ms P-R-T Axes : 084 004 226 degrees QTc Int : 513 ms Sinus rhythm. with short VA with frequent premature ventricular complexes. Cannot rule out Inferior infarct (cited on or before 02-OCT-2018) ST & T wave abnormality, consider lateral ischemia Prolonged QT Abnormal ECG When compared with ECG of 12-NOV-2018 13:45, No significant change was found Unconfirmed Result
[2018-11-17 08:40] LABS: ALBUMIN 2.9 g/dL (3.5-5.0); CALCIUM 9.4 mg/dL (8.8-10.2); CREATININE 3.2 mg/dL (0.7-1.2); PHOSPHORUS 4.9 mg/dL (2.7-4.5); POTASSIUM 4.7 mmol/L (3.5-5.1)
[2018-11-17] MEDS: LASIX 200 MG in NS 25 ML IV SCH ×2 (09:10→17:04)
[2018-11-17] MEDS: MIRALAX PO SCH ×2 (09:39→22:01)
[2018-11-17] MEDS: ZAROXOLYN PO SCH (09:42)
[2018-11-17] MEDS: PHOSLO PO SCH ×3 (09:42→17:04)
[2018-11-17] MEDS: ICAR-C PO SCH (09:42)
[2018-11-17] MEDS: COLCRYS PO SCH (09:43)
[2018-11-17] MEDS: ZYLOPRIM PO SCH ×2 (09:43→22:00)
[2018-11-17] MEDS: ASPIRIN PO SCH (09:44)
[2018-11-17] MEDS: FOLIC ACID PO SCH (09:44)
[2018-11-17] MEDS: NEURONTIN PO SCH ×2 (09:44→21:59)
[2018-11-17] MEDS: HEPARIN SUBQ SCH ×2 (09:44→22:00)
[2018-11-17] MEDS: ENTRESTO 24 MG-26 MG TABLET PO SCH ×2 (09:44→21:59)
[2018-11-17] MEDS: MAG-OX PO SCH ×2 (09:44→21:59)
[2018-11-17] MEDS: COREG PO SCH ×2 (09:44→22:00)
[2018-11-17] MEDS: PULMICORT INH SCH ×2 (10:56→21:48)
--- NOTE | 2018-11-17 11:38 | NEPHROLOGY PROGRESS NOTE ---
DATE: 11/17/2018 SUBJECTIVE: Patient is sitting up in bed. OBJECTIVE: Vital Signs: Temperature 98.9 degrees, pulse 85, respiratory rate 20, blood pressure 117/69. Intake and output: Intake 950 mL. Output 1.5 L. General: This is a middle-aged gentleman resting in bed. He is awake and alert. He is appropriate today. HEENT: Normocephalic, atraumatic. Oral mucosa moist. Neck: Supple with JVD. Cardiovascular: Regular rate and rhythm. Pulmonary: He has no increased work of breathing. He is clear bilaterally today. Genitourinary: Not inspected. Extremities: 2 to 3+ edema. Tender to touch. No clubbing or cyanosis. Integumentary: Skin is warm and dry. LABORATORY DATA: WBC of 6.5, hemoglobin 7.3. Chemistries yesterday: Sodium 140, potassium 4.3, CO2 of 29, creatinine 2.8 (3.1). ASSESSMENT AND PLAN: 1. Cardiorenal syndrome. His creatinine with ever so slight improvement, but really if you look at a trend overall, he has been fairly stable pretty much at this level over the weekend. 2. Urine output: He does remain in negative fluid territory by perhaps 0.5 L per day. We will continue his diuretics, and a further decision will be made later on today regarding whether we will need to utilize dialysis on this gentleman. Unfortunately, it is noted that he has an ejection fraction of 20%. Further orders to follow. 3. Electrolytes, acid-base balance, anemia. These have been stable. Anemia followed by primary. Transfuse as warranted. The patient will likely require diuretics with transfusions so he does not become overloaded again. I will discuss dialysis with him. Unfortunately it does not seem like his insight into his problem is adequate. rg Dictated by CLAY Waldron for Baron Lemon MD Face to face encounter, data reviewed, discussed with Pradeep Kiran on 11/17/18. I agree with the above assessment and plan of care. rg cc: Baron Lemon MD [facility]
--- NOTE | 2018-11-17 16:46 | PROGRESS NOTE ---
DATE: 11/17/2018 INTERVAL HISTORY: No acute events. The patient was transferred from ICU to routine medical floor. He did not have any acute overnight events. The patient is very sleepy right now. Does not appear in any distress. Denies new complaints. He states Nephrology is discussing about whether to get him on dialysis or not. OBJECTIVE: Vital Signs: Currently, temperature of 100.2 degrees, pulse of 83, respiratory rate 20, blood pressure 110/64. He is saturating 92% on room air. General: Not in any acute distress. HEENT: Oral cavity is moist. Lungs: Air entry bilaterally equal. No wheeze, rhonchi, or crackles. Cardiovascular: S1, S2 normal. No murmur, rub, or gallop. Abdomen: Soft. He has a bilateral flank tenderness. He also has shifting dullness. Respiratory: On referred examination, his air entry is significantly decreased in right infrascapular region with inspiratory crackles. Extremities: He has bilateral lower extremity edema extending up to thigh level. Genitourinary: Input and output suggests he is making inadequate urine with regards to the amount of edema he has. LABORATORY DATA: Suggestive of persistent normocytic anemia. Normal electrolytes except elevated BUN and creatinine. Acceptable range of hyperphosphatemia and acceptable range of blood sugars. ASSESSMENT AND PLAN: 1. Acute on chronic systolic congestive heart failure with ejection fraction of 20%, likely in the setting of medication and dietary noncompliance and intermittent cocaine use. Continue current dose of Lasix with metolazone as per Nephrology recommendation. Ongoing discussion about likely to initiate dialysis with microfiltration. 2. Chronic kidney disease stage III to stage IV due to hypertensive and diabetic nephropathy with current cardiorenal syndrome, stable. Plan as mentioned above. 3. Recurrent right-sided transudative pleural effusion in the setting of congestive heart failure, stable. The patient is not in any respiratory distress. He may need a repeat thoracentesis in the future. 4. History of coronary artery disease status post right coronary stent in the past with congestive heart failure due to ischemic cardiomyopathy. Continue aspirin, high-dose statin, carvedilol, and Entresto. 5. Anemia of chronic disease plus anemia related to frequent blood draws. Continue iron carbonyl, ascorbic acid, folic acid. Follow up with CBC. Will transfuse with a goal of keeping hemoglobin more than 7. We will appreciate Nephrology recommendation in he would be a candidate of erythropoietin pretty soon. 6. Others: His acute encephalopathy and profound hypotension contributing to acute encephalopathy on 11/15/2018, related to multiple antihypertensive medication has resolved; continue albuterol ipratropium nebulization with budesonide for history of chronic obstructive pulmonary disease; colchicine and allopurinol for gout; tramadol and gabapentin for chronic pain; sliding scale insulin for history of diabetes. 7. Disposition: The patient remains inside the hospital as the need for intravenous diuretic. Plan of care discussed with the patient. All of his questions have been answered. cc: Jaime Greene MD
[2018-11-17] MEDS: TYLENOL PO PRN (17:09)
[2018-11-17] MEDS: LIPITOR PO SCH (21:59)
[2018-11-18] MEDS: LASIX 200 MG in NS 25 ML IV SCH (00:47)
[2018-11-18] MEDS: DUONEB (A & A) INH SCH ×4 (03:21→23:30)
[2018-11-18] MEDS: PROTONIX PO SCH (06:20)
[2018-11-18] MEDS: HUMALOG SUBQ SCH ×4 (06:21→21:38)
[2018-11-18 06:44] LABS: ALBUMIN 2.8 g/dL (3.5-5.0); CALCIUM 9.6 mg/dL (8.8-10.2); CREATININE 3.2 mg/dL (0.7-1.2); PHOSPHORUS 4.7 mg/dL (2.7-4.5); POTASSIUM 4.8 mmol/L (3.5-5.1)
[2018-11-18] MEDS: ULTRAM PO PRN (06:47)
[2018-11-18] MEDS: TYLENOL PO PRN ×2 (06:47→23:32)
--- NOTE | 2018-11-18 07:28 | NEPHROLOGY PROGRESS NOTE ---
DATE: 11/18/2018 SUBJECTIVE: He is sitting up on the side of the bed, complaining of pain in the left chest. He has no cough. Shortness of breath is not significant. No other new symptoms. OBJECTIVE: Vital Signs: Temperature 100.4 degrees, blood pressure 105/69, heart rate 76, respirations 16. Intake 500 mL. Output 1.3 L. Physical Examination: General: Sitting up, in discomfort but no obvious distress. Skin: Warm and dry. HEENT: Conjunctivae are pale. Neck: Neck veins are not visible in the erect position. Heart: Regular. No gallops. Lungs: Equal. No crackles or wheezes. Abdomen: Soft, nontender. Bowel sounds present. Extremities: Have 1+ edema. No clubbing or cyanosis. IMPRESSION: 1. Chest pain. Low-grade fever. We will check a chest x-ray to exclude pneumonia. He is receiving symptomatic therapy for his pain. 2. Acute kidney injury. Cardiorenal syndrome. His labs are about the same today as yesterday. His exam looks better from a volume standpoint. I had another conversation with him last night about dialysis but it is not clear at all to me that he understands the implications of dialysis. I will stop his metolazone and change his Lasix to 80 mg by mouth twice a day, and observe his volume status. If we can avoid hemodialysis, I think that would be preferable. cc: Baron Lemon MD
[2018-11-18] MEDS: ENTRESTO 24 MG-26 MG TABLET PO SCH ×2 (08:10→21:28)
[2018-11-18] MEDS: PHOSLO PO SCH ×3 (08:11→17:26)
[2018-11-18] MEDS: MAG-OX PO SCH ×2 (08:11→21:28)
[2018-11-18] MEDS: ASPIRIN PO SCH (08:11)
[2018-11-18] MEDS: NEURONTIN PO SCH ×2 (08:11→21:29)
[2018-11-18] MEDS: ZYLOPRIM PO SCH ×2 (08:11→21:28)
[2018-11-18] MEDS: ICAR-C PO SCH (08:11)
[2018-11-18] MEDS: FOLIC ACID PO SCH (08:11)
[2018-11-18] MEDS: LASIX PO SCH ×2 (08:12→21:29)
[2018-11-18] MEDS: COREG PO SCH ×2 (08:12→21:37)
[2018-11-18] MEDS: MIRALAX PO SCH ×2 (08:13→21:29)
[2018-11-18] MEDS: COLCRYS PO SCH (08:22)
[2018-11-18] MEDS: HEPARIN SUBQ SCH ×2 (08:22→21:28)
[2018-11-18] MEDS: PULMICORT INH SCH ×2 (09:30→20:15)
--- NOTE | 2018-11-18 10:02 | EKG Report ---
Test Performed on : 11/18/2018 09:48:50 AM Test Reason : H/o CAD. Chest pain. Blood Pressure : / mmHG Vent. Rate : 073 BPM Atrial Rate : 073 BPM P-R Int : 114 ms QRS Dur : 116 ms QT Int : 406 ms P-R-T Axes : 014 -06 237 degrees QTc Int : 447 ms Normal sinus rhythm. Inferior infarct (cited on or before 02-OCT-2018) T wave abnormality, consider lateral ischemia Abnormal ECG When compared with ECG of 15-NOV-2018 03:13, premature ventricular complexes. are no longer present QT has shortened Unconfirmed Result
--- NOTE | 2018-11-18 11:59 | Diag Imaging Result Doc PS360 ---
EXAM: CHEST-2 VIEWS HISTORY: left chest pain, sob TECHNIQUE: Chest two views COMPARISON: 11/16/2018 FINDINGS: There is atelectasis and possibly infiltrates in the lower right lung. There is also a small to moderate-sized right pleural effusion and a small left pleural effusion. The heart remains enlarged. These findings are similar to the prior exam. No pulmonary edema on the current study. IMPRESSION: Decreased pulmonary edema, otherwise stable exam. Electronically signed by Juan Henderson 11/18/2018 11:57 AM
--- NOTE | 2018-11-18 12:56 | PROGRESS NOTE ---
DATE: 11/18/2018 INTERVAL HISTORY: Patient had a low-grade fever yesterday. He is also complaining of some chest pain for which I have ordered EKG and troponins. SUBJECTIVE: He is a little sleepy today. He has eaten his entire breakfast, does not appear in acute distress though. VITALS: Temperature 97.9 degrees, pulse 77, respiratory rate 20, blood pressure 111/68, saturating 95% on room air. PHYSICAL EXAMINATION: General: Arousable. Complaining of some chest pain. EKG and troponins are pending. Mouth: Oral cavity is moist. Lungs: Air entry decreased in right infrascapular region with inspiratory crackles; otherwise, no wheeze or rhonchi bilaterally. Adequate air entry on left hemithorax. Heart: S1, S2 normal. No murmur or gallop. Abdomen: Soft. Extremities: Bilateral flank dullness to percussion and shifting dullness. He has active bilateral lower extremity edema extending up to thigh level. Genitourinary: Input and output suggests that he had -600 mL yesterday, -800 mL today since. LABS: No CBC today. BMP suggestive of elevated BUN and creatinine with GFR in CKD stage IV range. Hyperglycemia. Troponin is 0.09. No new microbiological data. IMAGING: Chest x-ray had suggested slight decrease in pulmonary edema, right-sided pleural effusion. ASSESSMENT AND PLAN: 1. Acute on chronic systolic congestive heart failure with ejection fraction of 20% in the setting of medication and dietary noncompliance and intermittent cocaine use. Continue oral Lasix 80 mg twice daily as per Nephrology recommendation. Continue Entresto, carvedilol. 2. Chronic kidney disease stage IV due to hypertensive diabetic nephropathy with cardiorenal syndrome type 1. Diuretic plan as mentioned above. Continue calcium acetate for hyperphosphatemia and renally-dosed medication as per Nephrology recommendation. He has poor understanding of dialysis. However, with significant leg edema, his ambulation is significantly impaired. 3. Recurrent right-sided transudative pleural effusion in the setting of congestive heart failure. He is not in any respiratory distress. Chest x-ray detects stable right-sided pleural effusion. 4. History of coronary artery disease status post right coronary stent in the past with congestive heart failure due to ischemic cardiomyopathy. Continue aspirin, high-dose statin, magnesium. 5. Anemia of chronic disease plus anemia related to frequent blood draws. Continue iron carbonyl ascorbic acid with folic acid, transfused with goal of keeping hemoglobin more than 7. 6. Others. His acute encephalopathy and profound hypotension contributing to acute encephalopathy on November 15 related to multiple antihypertensive medication use has resolved; continue albuterol ipratropium nebulization and budesonide for history of chronic obstructive pulmonary disease; continue colchicine and allopurinol for gout; tramadol, gabapentin for chronic pain; sliding scale insulin for history of diabetes. 7. Disposition: Patient remains on telemetry unit. Continue physical therapy. Continue heparin subcutaneous for deep vein thrombosis prophylaxis. I will initiate discussion about long-term acute care facility for the patient. Plan of care is discussed with him. All of his questions have been answered. I will keep nephrology team in the loop as well. cc: Jaime Greene MD
[2018-11-18] MEDS: LIPITOR PO SCH (21:28)
[2018-11-19] MEDS: DUONEB (A & A) INH SCH ×4 (03:39→23:53)
[2018-11-19] MEDS: TYLENOL PO PRN (04:33)
[2018-11-19 06:22] LABS: BASO# 0.02 X1000 (0.0-0.2); BASO% 0.2 % (0.0-0.8); EOS# 0.04 X1000 (0.0-0.7); EOS% 0.4 % (0.0-10.0); HEMATOCRIT 24.5 % (42.0-52.0); HEMOGLOBIN 7.3 g/dL (14.0-18.0); IMM GRAN# 0.02 X1000 (0.0-0.04); IMM GRAN% 0.2 % (0.0-0.5); LYMPH# 1.45 X1000 (1.2-3.4); LYMPH% 13.5 % (20.5-51.1); MCH 26.1 PG (27-31); MCHC 29.8 g/dL (33-37); MCV 87.5 FL (81-99); MONO# 1.05 X1000 (0.11-0.59); MONO% 9.8 % (1.7-9.3); MPV 12.1 FL (7.4-10.4); NEUT# 8.13 X1000 (1.4-6.5); NEUT% 75.9 % (42.2-75.2); PLT 151 X1000 (130-400); WBC 10.71 X1000 (4.8-10.8)
[2018-11-19] MEDS: HUMALOG SUBQ SCH ×4 (06:30→21:23)
[2018-11-19] MEDS: PROTONIX PO SCH (06:30)
[2018-11-19 06:36] LABS: ALBUMIN 2.7 g/dL (3.5-5.0); CALCIUM 9.2 mg/dL (8.8-10.2); MAGNESIUM 2.5 mg/dL (1.5-2.7); PHOSPHORUS 4.7 mg/dL (2.7-4.5); POTASSIUM 5.1 mmol/L (3.5-5.1)
[2018-11-19] MEDS: HEPARIN SUBQ SCH ×2 (09:03→21:23)
[2018-11-19] MEDS: COLCRYS PO SCH (09:04)
[2018-11-19] MEDS: ZYLOPRIM PO SCH ×2 (09:04→21:22)
[2018-11-19] MEDS: NEURONTIN PO SCH ×2 (09:05→21:23)
[2018-11-19] MEDS: FOLIC ACID PO SCH (09:05)
[2018-11-19] MEDS: ICAR-C PO SCH (09:05)
[2018-11-19] MEDS: COREG PO SCH ×2 (09:05→21:23)
[2018-11-19] MEDS: MAG-OX PO SCH ×2 (09:05→21:22)
[2018-11-19] MEDS: LASIX PO SCH ×2 (09:05→21:22)
[2018-11-19] MEDS: ASPIRIN PO SCH (09:05)
[2018-11-19] MEDS: ENTRESTO 24 MG-26 MG TABLET PO SCH ×2 (09:05→21:23)
[2018-11-19] MEDS: PHOSLO PO SCH ×3 (09:06→16:37)
[2018-11-19] MEDS: MIRALAX PO SCH ×2 (09:06→21:24)
[2018-11-19] MEDS: PULMICORT INH SCH ×2 (11:45→20:00)
[2018-11-19] MEDS: VITAMIN D PO SCH (16:37)
--- NOTE | 2018-11-19 18:45 | NEPHROLOGY PROGRESS NOTE ---
DATE: 11/19/2018 SUBJECTIVE: Patient is sitting up in bed. He has been able to eat without difficulty today. OBJECTIVE: Vital Signs: Temperature 98.2 degrees, pulse 78, respiratory rate 18, blood pressure 120/60, intake 300 mL. Output 1 L. PHYSICAL EXAMINATION: General: This is a middle-aged gentleman sitting up in bed. No acute distress. HEENT: Normocephalic, atraumatic. LYNDA. Neck: Supple without JVD. Cardiovascular: Regular rate and rhythm without murmur or gallop. Pulmonary: He is clear bilaterally. Abdomen: Soft, with positive bowel sounds. Genitourinary: Not inspected. Extremities: No clubbing cyanosis. Does have edema. Integumentary: Skin is warm and dry otherwise. LABORATORY DATA: WBC of 10.7, hemoglobin 7.3, sodium 135, potassium 5.1. CO2 28, creatinine 4.0. ASSESSMENT AND PLAN: Acute kidney injury, cardiorenal syndrome. We have held his metolazone and we are changing his Lasix to oral. Again if we can avoid hemodialysis this would be preferable in this gentleman. I am not at all confident that he understands the implications of the decision facing us and he has not clearly stated that he accepts it. Dictated by CLAY Waldron for Baron Lemon MD Data reviewed, discussed with Pradeep Kiran on 11/19/18. I agree with the above assessment and plan of care. cc: Baron Lemon MD [facility]
--- NOTE | 2018-11-19 21:12 | PROGRESS NOTE ---
DATE: 11/19/2018 INTERVAL HISTORY: Patient continues to have low-grade fever. He is drowsy. Does not complain of anything new. He appears a little confused. Denies any chest pain or shortness of breath. He states he ate his entire meal today, but he speaks sometimes with sentences that do not make much sense to me. PHYSICAL EXAMINATION: Vital Signs:: Temperature 97.9, pulse 80, respiratory rate 18, blood pressure 105/49, saturating 93% on room air. General: Does not appear in any acute distress. He follows simple commands like opening mouth. Oral cavity is moist. No pallor, cyanosis, clubbing, or icterus except mild conjunctival pallor. Lungs: Air entry decreased in right inframammary and infrascapular regions with mild inspiratory crackles. No wheeze or rhonchi. Adequate air entry on left hemithorax. Cardiovascular: S1, S2 normal. No murmur, rub, or gallop. Abdomen: Soft. He has bilateral flank dullness to percussion with shifting dullness. He has active bowel sounds. Extremities: He has lower extremity edema extending up to thigh level. His input and output suggests that he made 1.7 L urine so far with -1.2 L output. Neurologic: He is drowsy but arousable to strong painful stimuli and strong verbal stimuli. He is engaging in meaningful conversation only shortly and again starts speaking something which may not be understood appropriately and clearly. He is redirectable. When I ask him if he is having any confusion, he says that he does not know, and he states he wants to sleep. LABS: Currently suggestive of normocytic anemia. Normal platelet count, hyponatremia, hypochloremia, increasing BUN and creatinine, in CKD stage 4 range. MICROBIOLOGY: Blood culture and urinalysis with reflex culture has been ordered. ASSESSMENT AND PLAN: 1. Acute encephalopathy. The patient does use a jargon which is a little hard for me to understand; however, his drowsiness and some confusion are concerning. He also has had low- grade fever. I will get urinalysis with reflex culture and blood culture, and if he has further fever spikes, will consider starting him on an empiric antibiotic. His examination is nonfocal. I also discussed with the Nephrology team about potential uremia contributing to his acute encephalopathy, which appears global at the moment. 2. Acute on chronic systolic congestive heart failure with ejection fraction of 20% in the setting of medication and dietary noncompliance and intermittent cocaine use. Continue current oral Lasix dose as per Nephrology recommendation with Entresto and carvedilol. 3. Chronic kidney disease stage 4 due to hypertensive and diabetic nephropathy with cardiorenal syndrome type 1. Diuretic plan as mentioned above. Continue calcium acetate for hyperphosphatemia and renal dose medications as per Nephrology. He has very poor understanding of dialysis; however, if uremia is contributing to his symptoms, he might end up on dialysis for short time. Nephrology recommendation will be appreciated, 4. Recurrent right-sided transudative pleural effusion in setting of congestive heart failure. He is not in any acute respiratory distress. His pleural effusion is stable. 5. History of coronary artery disease, status post right coronary artery stent in the past and ischemic cardiomyopathy. Continue aspirin, high-dose statin, and magnesium. 6. Anemia of chronic disease plus anemia related to frequent blood draws. Continue iron carbonyl, ascorbic acid, and folic acid and transfuse with a goal of hemoglobin more than 7. 7. Others. He did have an episode of acute encephalopathy on November 15 related to hypotension, requiring ICU admission for 24 hours; however, he got better after that and was transferred to the floor; continue albuterol ipratropium nebulization with budesonide for COPD; colchicine and allopurinol for gout; tramadol and gabapentin for chronic pain, and sliding scale insulin for history of diabetes. I would consider discontinuing some of his pain medications, considering acute encephalopathy. DISPOSITION: The patient remains on the telemetry unit for persistent bilateral lower extremity edema and inability to ambulate. If his mental status improves, then he may eventually be able to go to rehab; however, he is at high risk of readmission. He does not have good understanding of dialysis at the moment, and he has been previously noncompliant as well. Once his mental status improves, I would consider discussing the option of a long-term acute care facility. The palliative care team is also on board. Previously, I had discussed plan of care with the patient's mother and father extensively about 2 days ago. cc: Jaime Greene MD MTDKarishma
[2018-11-19] MEDS: LIPITOR PO SCH (21:23)
[2018-11-20] MEDS: DUONEB (A & A) INH SCH ×4 (03:52→23:51)
[2018-11-20] MEDS: HUMALOG SUBQ SCH ×5 (06:31→21:25)
[2018-11-20] MEDS: PROTONIX PO SCH (06:31)
[2018-11-20 07:27] LABS: ALBUMIN 2.8 g/dL (3.5-5.0); CALCIUM 9.2 mg/dL (8.8-10.2); CREATININE 4.2 mg/dL (0.7-1.2)
[2018-11-20] MEDS: PULMICORT INH SCH ×2 (08:23→23:50)
[2018-11-20] MEDS: COLCRYS PO SCH (08:54)
[2018-11-20] MEDS: MAG-OX PO SCH (08:55)
[2018-11-20] MEDS: ICAR-C PO SCH (08:55)
[2018-11-20] MEDS: LASIX PO SCH ×2 (08:55→21:23)
[2018-11-20] MEDS: PHOSLO PO SCH ×3 (08:55→17:07)
[2018-11-20] MEDS: ZYLOPRIM PO SCH (08:55)
[2018-11-20] MEDS: ENTRESTO 24 MG-26 MG TABLET PO SCH ×2 (08:55→21:22)
[2018-11-20] MEDS: FOLIC ACID PO SCH (08:56)
[2018-11-20] MEDS: MIRALAX PO SCH ×2 (08:56→21:24)
[2018-11-20] MEDS: COREG PO SCH ×2 (08:56→21:24)
[2018-11-20] MEDS: HEPARIN SUBQ SCH ×2 (11:03→21:23)
[2018-11-20] MEDS: ASPIRIN PO SCH (11:03)
[2018-11-20] MEDS ORDERED: RISPERDAL M-TAB PO ONE (17:31)
--- NOTE | 2018-11-20 17:47 | PROGRESS NOTE ---
DATE: 11/20/2018 SUBJECTIVE: Patient seems very agitated. He talks very rapidly. The sentences I think it makes sense, per se. He does seem alert, oriented, but he is talking "a mile a minute" just continuously and tangential thinking almost like a manic or hypomanic episode. OBJECTIVE: Vital signs: Blood pressure 120/70, heart rate of 88, respiratory rate 20, temperature is 100.6 degrees. Cardiovascular: Regular rate and rhythm. Pulmonary: Bilateral breath sounds diminished at the bases. Gastrointestinal: Soft, nontender, nondistended. Bowel sounds are positive. LABORATORY DATA: No white count today. Creatinine 4.2, which has steadily deteriorated since admission. PROBLEM LIST: 1. Encephalopathy. I am not sure if this is related to azotemia or infection. He is still having fevers. We may need to get a neurological or psychiatric evaluation if he is not much improved. I am going to start some Risperdal and follow. 2. Acute on chronic congestive heart failure (CHF). He is on medications per Renal service. I guess they are trying to avoid pursuing dialysis, but he is certainly worsening. 3. Acute on chronic renal failure. He is stage 4. His kidney function continues to deteriorate. Nephrology is going to follow. 4. Recurrent pleural effusion. We have been working on trying to diurese that, but now his kidney function has deteriorated. 5. Coronary artery disease (CAD). Aware. We will continue his medications and follow. DISPOSITION: We need to kind of sort out his mental status and his ability to take care of himself, so we are going to continue to monitor. cc: Allen Miranda MD
--- NOTE | 2018-11-20 18:58 | NEPHROLOGY PROGRESS NOTE ---
DATE: 11/20/2018 SUBJECTIVE: He is awake, alert, a little bit agitated. His answers are incongruent. OBJECTIVE: Blood pressure 115/56, heart rate 77, respirations 14, temperature 99.1 degrees. Intake 800 mL, output 2.2 L. On physical exam, no acute distress. Skin is warm and dry. Conjunctivae are pink. Neck veins are distended. Heart is regular, with a murmur. Lungs are equal. No crackles. Abdomen soft, nontender. Bowel sounds present. Extremities have 2+ edema. No clubbing or cyanosis. IMPRESSION AND PLAN: Cardiorenal syndrome. BUN and creatinine are rising slowly. Electrolytes and acid-base are acceptable. Volume status remains hypervolemic, but significantly improved. He is now on furosemide 80 mg b.i.d. by mouth. We will continue to observe. If he remains in negative fluid balance, I will decrease this dose tomorrow. No changes otherwise. cc: Baron Lemon MD
[2018-11-20 19:38] LABS: URINE SOURCE CLEAN CATCH
[2018-11-20 19:42] LABS: BILIRUBIN URINE NEGATIVE (NEGATIVE); BLOOD URINE NEGATIVE (NEGATIVE); COLOR YELLOW; GLUCOSE URINE NEGATIVE (NEGATIVE); KETONE URINE NEGATIVE (NEGATIVE); LEUKOCYTES URINE NEGATIVE (NEGATIVE); NITRITE URINE NEGATIVE (NEGATIVE); PH URINE 6.5; PROTEIN URINE 100 mg/dL (NEGATIVE); SP GRAVITY URINE 1.008; TURBIDITY URINE CLEAR (CLEAR); UROBILINOGEN URINE NORMAL (NORMAL)
[2018-11-20 19:45] LABS: UR EPITHELIAL CELLS <10 /HPF (<10); URINE BACTERIA NEGATIVE /HPF; URINE RBC <10 /HPF (<10); URINE WBC <10 /HPF (<10)
[2018-11-20 19:52] LABS: URINE YEAST NONE SEEN
[2018-11-20] MEDS: LIPITOR PO SCH (21:22)
--- NOTE | 2018-11-20 22:05 | PULMONOLOGY PROGRESS NOTE ---
DATE: 11/20/2018 SUBJECTIVE: Patient unfortunately had a nosebleed earlier, but it has now stopped. He reports his breathing is doing okay. OBJECTIVE: Vital signs: He is having some low-grade fevers to 100.6. Blood pressure 116/70, heart rate 88, respiratory rate 20, oxygen saturation 98% on room air. HEENT: Pupils are equal and reactive. Oropharynx appears clear. Neck: Supple. Chest: Reveals decreased breath sounds right base. Cardiac exam: Regular rate. Normal S1, normal S2. Abdomen: Soft. Extremities: Trace edema. LABORATORIES: Blood cultures are pending. Chemistry: Sodium 134, potassium 5.0, chloride 93, bicarbonate 92, creatinine 4.2. Urinalysis appears clear. IMPRESSION: A 62-year-old with: 1. Recurrent transudative effusion. 2. Systolic heart failure. 3. Acute on chronic kidney disease, low-grade fever, possible component of dementia/lexis. Previous CT scan of the brain 5 days ago revealed diffuse brain atrophy with moderate microangiopathy. RECOMMENDATIONS: 1. Followup chest x-ray tomorrow. Additional diuresis will appear limited. 2. Will obtain sinus x-rays in the morning. He may have acute sinusitis. 3. Consider repeat thoracentesis given new fever, but I think a thoracentesis induced empyema would be unlikely. cc: Evan Del Rosario MD
[2018-11-21] MEDS: DUONEB (A & A) INH SCH ×4 (03:44→22:25)
[2018-11-21] MEDS ORDERED: AYR NASAL SPRAY NAS PRN (03:50)
[2018-11-21] MEDS ORDERED: NS 500 ML IV SCH (04:45)
[2018-11-21] MEDS: RISPERDAL M-TAB PO SCH ×3 (06:03→21:25)
[2018-11-21] MEDS: PROTONIX PO SCH (06:03)
[2018-11-21] MEDS: HUMALOG SUBQ SCH ×4 (06:12→21:24)
[2018-11-21] MEDS: MIRALAX PO SCH ×2 (08:39→21:25)
[2018-11-21] MEDS: COLCRYS PO SCH (08:40)
[2018-11-21] MEDS: FOLIC ACID PO SCH (08:41)
[2018-11-21] MEDS: ENTRESTO 24 MG-26 MG TABLET PO SCH ×2 (08:41→21:25)
[2018-11-21] MEDS: COREG PO SCH ×2 (08:42→21:25)
[2018-11-21] MEDS: ICAR-C PO SCH (08:42)
[2018-11-21] MEDS: PHOSLO PO SCH ×3 (08:42→17:19)
[2018-11-21] MEDS: LASIX PO SCH (08:42)
[2018-11-21] MEDS: HEPARIN SUBQ SCH ×2 (08:45→21:26)
[2018-11-21] MEDS: ASPIRIN PO SCH (08:45)
--- NOTE | 2018-11-21 09:55 | NEPHROLOGY PROGRESS NOTE ---
DATE: 11/21/2018 SUBJECTIVE: He is very somnolent today. With physical, tactile, and verbal stimuli, he will say yes and no but does not lift his head or look at me. OBJECTIVE: Vital Signs: Blood pressure 111/52, heart rate 78, respirations 16, afebrile. Intake 1.9 L, output 1.2 L. General: No acute distress. Skin: Warm and dry. He has blood on his clothing. Neck: Neck veins are distended. Heart: Regular. Lungs: Have equal breath sounds, shallow, no crackles. Abdomen: Soft, nontender. Bowel sounds present. Extremities: 2+ edema. No clubbing or cyanosis. IMPRESSION: Cardiorenal syndrome. Labs are still pending for today. His fluid balance has been net negative until the last 24 hours. He is on p.o. Lasix only at this time. I am going to go ahead and decrease that dose to once daily. His altered mental status is not likely related to his kidney disease. He is having acute blood loss that may explain some of those changes. Blood pressure is acceptable however. cc: Baron Lemon MD
--- NOTE | 2018-11-21 10:13 | Diag Imaging Result Doc PS360 ---
EXAM: SINUSES HISTORY: fever and nose bleed TECHNIQUE: Three views COMPARISON: None. FINDINGS: No sinus opacification. No air-fluid levels. No mucosal thickening. IMPRESSION: No sinusitis. Electronically signed by Juan Henderson 11/21/2018 10:11 AM
--- NOTE | 2018-11-21 10:18 | Diag Imaging Result Doc PS360 ---
EXAM: CHEST-2 VIEWS HISTORY: abnormal exam TECHNIQUE: Chest two views COMPARISON: 11/18/2018 FINDINGS: There are infiltrates and atelectasis in the mid and lower right lung. The heart remains enlarged with central vascular distention. There is a small to moderate-sized right pleural effusion with a small left pleural effusion. IMPRESSION: No interval improvement. Electronically signed by Juan Henderson 11/21/2018 10:15 AM
[2018-11-21 10:33] LABS: BASO# 0.01 X1000 (0.0-0.2); BASO% 0.1 % (0.0-0.8); EOS# 0.09 X1000 (0.0-0.7); EOS% 1.2 % (0.0-10.0); HEMATOCRIT 25.5 % (42.0-52.0); HEMOGLOBIN 7.8 g/dL (14.0-18.0); LYMPH# 1.17 X1000 (1.2-3.4); LYMPH% 15.3 % (20.5-51.1); MCH 26.8 PG (27-31); MCHC 30.6 g/dL (33-37); MCV 87.6 FL (81-99); MONO# 0.93 X1000 (0.11-0.59); MONO% 12.1 % (1.7-9.3); MPV 11.1 FL (7.4-10.4); NEUT# 5.47 X1000 (1.4-6.5); NEUT% 71.3 % (42.2-75.2); PLT 149 X1000 (130-400); RBC 2.91 XMIL (4.7-6.1); RDW 19.9 % (11.5-14.5); WBC 7.67 X1000 (4.8-10.8)
[2018-11-21] MEDS: PULMICORT INH SCH ×2 (11:00→22:25)
[2018-11-21 11:01] LABS: CALCIUM 8.6 mg/dL (8.8-10.2); CREATININE 3.7 mg/dL (0.7-1.2)
--- NOTE | 2018-11-21 17:13 | PULMONOLOGY PROGRESS NOTE ---
DATE: 11/21/2018 SUBJECTIVE: The patient is awake, alert, and conversant, although it is sometimes difficult to follow his logic. The patient is not does not have a nosebleed this morning. He denies dyspnea. He does state "what are we going to do today." OBJECTIVE: Vital Signs: he patient is has been afebrile since 4 p.m. yesterday afternoon. Blood pressure 126/73, heart rate 80, respiratory rate 18, oxygen saturation 94% on 2 L per nasal cannula. HEENT: Pupils are equal and reactive. Oropharynx is clear. Neck: Supple. Chest: Reveals decreased breath sounds right base. Cardiac: S1-S2. Abdomen: Soft. Extremities: Reveal trace edema. IMAGING: Sinus x-rays reveal no evidence of acute sinusitis. Chest x-ray reveals atelectasis/effusion right base with mild vascular distention without change from 11/18/2017. LABORATORIES: White blood count 7.67, hemoglobin 7.8, platelet count 149,000. Sodium 136, potassium 5.0, chloride 93, bicarbonate 30, BUN 94, creatinine 3.7. IMPRESSION: A 62-year-old with: 1. Hypoxemic respiratory failure. 2. Systolic heart failure. 3. Acute on chronic kidney disease. 4. Nose bleed with resolution. 5. Possible component of dementia/lexis. RECOMMENDATIONS: 1. Continue fluid management per Nephrology. 2. Hold additional thoracentesis unless he develops fevers or increasing shortness of breath. 3. Prognosis is guarded with both heart and kidney disease and the cardiorenal syndrome. cc: Evan Del Rosario MD
--- NOTE | 2018-11-21 18:13 | PROGRESS NOTE ---
DATE: 11/21/2018 SUBJECTIVE: Patient has no focal complaints. OBJECTIVE: Blood pressure is 112/58, heart rate 77, respiratory rate of 18, temperature 98.4 degrees, 97% on 3 L. A little bit of fever yesterday, 100.5, 100.6. Major issue is that he started having significant epistaxis. His hemoglobin and hematocrit, which was low yesterday but had been stable for several days dropped to 6.9 and 22.7, and he got transfused. PROBLEM LIST: 1. Encephalopathy. He seems more reasonable now. I did start some Risperdal yesterday, and that seems to be calming him down a little bit. We will continue to follow. It may be a component of withdrawal or low-level underlying dementia. 2. Congestive heart failure. We will continue his medications. Kidney function is worsening but stable. His creatinine actually came down a little bit yesterday. Nephrology is going to continue to follow. He is just on p.o. Lasix. 3. Recurrent pleural effusion. Continue diuretics and follow. 4. Coronary artery disease is stable. DISPOSITION: Patient is not ambulatory, but he refuses to go along with inpatient rehab. He really has nobody to care for him at home so we are going to have to look at things closely. cc: Allen Miranda MD
[2018-11-21] MEDS ORDERED: AFRIN NASAL SPRAY NAS PRN (19:43)
[2018-11-21] MEDS: LIPITOR PO SCH (21:25)
[2018-11-22] MEDS: DUONEB (A & A) INH SCH ×4 (03:58→21:15)
[2018-11-22] MEDS: HUMALOG SUBQ SCH ×4 (06:33→21:30)
[2018-11-22] MEDS: PROTONIX PO SCH (06:34)
[2018-11-22] MEDS: RISPERDAL M-TAB PO SCH (10:31)
[2018-11-22] MEDS: PHOSLO PO SCH ×3 (10:31→17:16)
[2018-11-22] MEDS: FOLIC ACID PO SCH (10:32)
[2018-11-22] MEDS: HEPARIN SUBQ SCH ×2 (10:32→21:31)
[2018-11-22] MEDS: ICAR-C PO SCH (10:32)
[2018-11-22] MEDS: LASIX PO SCH (10:32)
[2018-11-22] MEDS: MIRALAX PO SCH ×2 (10:32→21:31)
[2018-11-22] MEDS: ENTRESTO 24 MG-26 MG TABLET PO SCH ×2 (10:33→21:31)
[2018-11-22] MEDS: COLCRYS PO SCH (10:33)
[2018-11-22] MEDS: COREG PO SCH ×2 (10:33→21:30)
[2018-11-22] MEDS: ASPIRIN PO SCH (10:34)
[2018-11-22] MEDS: PULMICORT INH SCH ×2 (16:01→21:15)
[2018-11-22] MEDS ORDERED: RISPERDAL M-TAB PO PRN (16:27)
[2018-11-22 17:31] LABS: BASO# 0.02 X1000 (0.0-0.2); BASO% 0.3 % (0.0-0.8); EOS# 0.07 X1000 (0.0-0.7); EOS% 0.9 % (0.0-10.0); HEMATOCRIT 29.1 % (42.0-52.0); HEMOGLOBIN 8.9 g/dL (14.0-18.0); IMM GRAN# 0.02 X1000 (0.0-0.04); IMM GRAN% 0.3 % (0.0-0.5); LYMPH# 1.49 X1000 (1.2-3.4); LYMPH% 19.6 % (20.5-51.1); MCH 26.6 PG (27-31); MCHC 30.6 g/dL (33-37); MCV 86.9 FL (81-99); MONO# 1.03 X1000 (0.11-0.59); MONO% 13.5 % (1.7-9.3); MPV 11.5 FL (7.4-10.4); NEUT# 4.99 X1000 (1.4-6.5); NEUT% 65.4 % (42.2-75.2); PLT 141 X1000 (130-400); RBC 3.35 XMIL (4.7-6.1); RDW 20.9 % (11.5-14.5); WBC 7.62 X1000 (4.8-10.8)
--- NOTE | 2018-11-22 17:57 | PROGRESS NOTE ---
DATE: 11/22/2018 SUBJECTIVE: The patient has no focal complaints. He is very weak today, just kind of sleepy. No other major complaints. He is also kind of talking tangentially, but he has done that before. OBJECTIVE: Vital Signs: Blood pressure is 129/55, heart rate of 81, respiratory 16, temperature 98.7, 95% on room air. Cardiovascular: Regular rate and rhythm. Pulmonary: Bilateral breath sounds. Clear to auscultation. GI: Was soft, nontender, nondistended. Bowel sounds are positive. Extremity: Exam, no clubbing or cyanosis. Lymphatic exam: No peripheral edema. Neurological: Nonfocal. LABORATORY DATA: Unremarkable. I do not have any labs today. PROBLEM LIST: 1. Encephalopathy. He did seem to be improved. He is on Risperdal but now he is probably a little too sedated. I am going to cut down on the dosing and follow closely. Still unclear what the underlying etiology is per se versus possibly some vascular dementia. 2. Congestive heart failure. He is stable at this point. I think he is a bit on the overloaded side. He is on p.o. Lasix. 3. Recurrent pleural effusion. We will continue diuresis and follow. 4. Coronary artery disease. Stable on current measures. DISPOSITION: Pending clinical status. Anticipate discharge. He has agreed to rehab so we will look at that Saturday. cc: Allen Miranda MD
[2018-11-22 18:06] LABS: CREATININE 3.7 mg/dL (0.7-1.2); POTASSIUM 4.6 mmol/L (3.5-5.1)
[2018-11-22] MEDS: LIPITOR PO SCH (21:30)
[2018-11-23] MEDS: DUONEB (A & A) INH SCH ×3 (03:22→21:16)
[2018-11-23] MEDS: HUMALOG SUBQ SCH ×4 (06:25→22:02)
[2018-11-23] MEDS: PROTONIX PO SCH (06:26)
[2018-11-23 06:45] LABS: BASO# 0.01 X1000 (0.0-0.2); BASO% 0.1 % (0.0-0.8); EOS# 0.07 X1000 (0.0-0.7); EOS% 0.9 % (0.0-10.0); HEMATOCRIT 25.7 % (42.0-52.0); HEMOGLOBIN 7.7 g/dL (14.0-18.0); LYMPH# 1.61 X1000 (1.2-3.4); LYMPH% 21.4 % (20.5-51.1); MCH 26.2 PG (27-31); MCV 87.4 FL (81-99); MONO# 0.86 X1000 (0.11-0.59); MONO% 11.4 % (1.7-9.3); MPV 11.4 FL (7.4-10.4); NEUT# 4.98 X1000 (1.4-6.5); NEUT% 66.2 % (42.2-75.2); PLT 141 X1000 (130-400); RBC 2.94 XMIL (4.7-6.1); RDW 20.9 % (11.5-14.5); WBC 7.53 X1000 (4.8-10.8)
[2018-11-23 07:32] LABS: CALCIUM 8.7 mg/dL (8.8-10.2); CREATININE 3.7 mg/dL (0.7-1.2); POTASSIUM 4.3 mmol/L (3.5-5.1)
[2018-11-23] MEDS: PHOSLO PO SCH ×7 (10:58→17:05)
[2018-11-23] MEDS: MIRALAX PO SCH ×3 (10:58→22:01)
[2018-11-23] MEDS: LASIX PO SCH ×2 (10:58→11:10)
[2018-11-23] MEDS: HEPARIN SUBQ SCH ×3 (10:59→22:02)
[2018-11-23] MEDS: ICAR-C PO SCH (10:59)
[2018-11-23] MEDS: ENTRESTO 24 MG-26 MG TABLET PO SCH ×3 (11:00→22:00)
[2018-11-23] MEDS: COLCRYS PO SCH ×2 (11:00→11:12)
[2018-11-23] MEDS: FOLIC ACID PO SCH (11:00)
[2018-11-23] MEDS: COREG PO SCH ×3 (11:00→22:02)
[2018-11-23] MEDS: ASPIRIN PO SCH ×2 (11:01→11:11)
[2018-11-23] MEDS: PULMICORT INH SCH ×2 (16:11→21:16)
--- NOTE | 2018-11-23 19:21 | PROGRESS NOTE ---
DATE: 11/23/2018 SUBJECTIVE: The patient has no major complaints except he wants to get home or he wants some sort of resolution in what he is doing. I explained to him he is very weak and will likely need rehab. He seems amenable to that at this time. His PT note from yesterday does show some ambulation, but he is very unsteady on his feet with an ataxic gait. OBJECTIVE: Vital Signs: Blood pressure is 130/65, heart rate of 72, respiratory rate of 20, temperature was 97.6 degrees, and 95% on room air. Cardiovascular: Regular rate and rhythm. Pulmonary: Bilateral breath sounds. Clear to auscultation. GI: Soft, nontender, nondistended. Bowel sounds are positive. LABORATORY DATA: White count is 7. Hemoglobin and hematocrit have dropped to 7.7 and 25. There was a drop from yesterday, but it is essentially unchanged from the day before. He did get 2 units of blood on the . I do not think he has had any further bleeding, but we will monitor. ASSESSMENT AND PLAN: 1. Encephalopathy seems to be improved. I am going to leave him on the low-dose Risperdal at night and see how he does. 2. Congestive heart failure. We are going to continue to follow. He is fairly well compensated. He is on Entresto. Cardiology had been checking on him, but I do not think they have seen him in several days. He has been relatively stable. 3. Renal failure, cardiorenal syndrome. His BUN and creatinine are stable. They have been stable for the last several days, essentially since the . So, despite the diuretics he seems to be stable from that standpoint. 4. Recurrent pleural effusion. We will continue to monitor. His last chest x-ray showed persistence, but no big change. DISPOSITION: He has agreed to go to rehab. We will pursue that venue. Hopefully, he can be discharged soon. cc: Allen Miranda MD
[2018-11-23] MEDS: LIPITOR PO SCH (22:00)
[2018-11-23] MEDS: RISPERDAL M-TAB PO SCH (22:01)
[2018-11-24] MEDS: DUONEB (A & A) INH SCH ×3 (03:45→16:37)
[2018-11-24] MEDS: PROTONIX PO SCH (06:18)
[2018-11-24] MEDS: HUMALOG SUBQ SCH ×4 (06:19→23:01)
[2018-11-24 07:18] LABS: BASO# 0.02 X1000 (0.0-0.2); BASO% 0.3 % (0.0-0.8); EOS# 0.14 X1000 (0.0-0.7); EOS% 1.8 % (0.0-10.0); HEMATOCRIT 24.4 % (42.0-52.0); HEMOGLOBIN 7.2 g/dL (14.0-18.0); IMM GRAN# 0.02 X1000 (0.0-0.04); IMM GRAN% 0.3 % (0.0-0.5); LYMPH% 22.3 % (20.5-51.1); MCH 26.1 PG (27-31); MCHC 29.5 g/dL (33-37); MCV 88.4 FL (81-99); MONO% 14.4 % (1.7-9.3); MPV 11.5 FL (7.4-10.4); NEUT# 4.64 X1000 (1.4-6.5); NEUT% 60.9 % (42.2-75.2); PLT 166 X1000 (130-400); RBC 2.76 XMIL (4.7-6.1); RDW 20.8 % (11.5-14.5); WBC 7.62 X1000 (4.8-10.8)
--- NOTE | 2018-11-24 07:19 | Diag Imaging Result Doc PS360 ---
CHEST-1 VIEW - 11/24/2018 INDICATION: SOB COMPARISON: 11/21/2018 FINDINGS: Stable cardiomegaly and pulmonary vascular congestion. Stable moderate right pleural effusion. Slight worsening atelectasis or effusion at the left lung base as well. IMPRESSION: Stable moderate right pleural effusion. There is worsening small left pleural effusion versus basilar atelectasis. Electronically signed by Power Peralta 11/24/2018 7:16 AM
[2018-11-24 07:38] LABS: ALBUMIN 2.5 g/dL (3.5-5.0); CALCIUM 9.1 mg/dL (8.8-10.2); PHOSPHORUS 4.9 mg/dL (2.7-4.5)
[2018-11-24] MEDS: PULMICORT INH SCH (11:10)
[2018-11-24] MEDS: HEPARIN SUBQ SCH ×3 (11:14→23:01)
[2018-11-24] MEDS: COREG PO SCH ×2 (11:15→23:00)
[2018-11-24] MEDS: ICAR-C PO SCH (11:15)
[2018-11-24] MEDS: LASIX PO SCH (11:15)
[2018-11-24] MEDS: COLCRYS PO SCH (11:15)
[2018-11-24] MEDS: ASPIRIN PO SCH (11:16)
[2018-11-24] MEDS: ENTRESTO 24 MG-26 MG TABLET PO SCH ×2 (11:16→23:00)
[2018-11-24] MEDS: FOLIC ACID PO SCH (11:16)
[2018-11-24] MEDS: PHOSLO PO SCH ×3 (11:16→17:00)
[2018-11-24] MEDS: MIRALAX PO SCH ×2 (11:17→23:00)
--- NOTE | 2018-11-24 12:15 | NEPHROLOGY PROGRESS NOTE ---
DATE: 11/24/2018 TIME SEEN: 0745. SUBJECTIVE: Mr. Stewart is resting quietly in bed. He digresses off of his answers upon how he is feeling this morning. No acute distress. VITAL SIGNS: His most recent vital signs show his temperature is 99.3 degrees, blood pressure 135/65, heart rate 84, respirations 20. He is on room air. Last recorded saturation 100%. He has had 180 in. He has had 1000 out to void. LABS: Sodium 145, potassium 4, chloride 102, CO2 29, BUN 84, creatinine 3, glucose is 133. His anion gap is 14, calcium 9.1, phosphorus 4.9, albumin is 2.5. White count 7.62, hemoglobin 7.2, hematocrit 24.4, with a platelet count of 166,000. PHYSICAL EXAMINATION: General: This is a 62-year-old -[place] male who is resting quietly in bed. No acute distress. Skin: Warm and dry. HEENT: Normocephalic, atraumatic. Conjunctiva is pale. He is LYNDA. Mucous membranes are dry. Neck: Supple. Trachea midline. No evidence of JVD. Cardiovascular: He is regular rate and rhythm. Lungs: Clear to auscultation anteriorly. Equal excursion on room air. Abdomen: Soft, nontender, positive bowel sounds. Genitourinary: Not inspected. Patient has adequate urine out to void. Extremities: He currently has 1 to 2+ lower extremity edema. Neurological: Alert to person and to place, though he does not stay on one subject when questioned in regards with how he is feeling. ASSESSMENT AND PLAN: 1. Cardiorenal syndrome. The patient's labs indicate that his creatinine has remained stable with a creatinine of 3. His BUN does remain slightly elevated at 84. The patient has had adequate urine output. He continues in an 11 liter fluid negative balance since his hospitalization. No indications for further changes. 2. Electrolytes, acid-base balance and anemia. These are all acceptable. I would like to thank you for allowing us to follow with this patient. Dictated by CLAY Gary for Baron Lemon MD Face to face encounter, data reviewed, discussed with Amaris Grissom on 11/24/18. I agree with the above assessment and plan of care. cc: CLAY Gary Gladish, MD [facility]
--- NOTE | 2018-11-24 13:44 | PROGRESS NOTE ---
DATE: 11/24/2018 SUBJECTIVE: Mr. Stewart is sitting in bed, watching TV. He is in no acute distress. OBJECTIVE: Vital signs: Blood pressure is 120/60 with heart rate of 84, respirations are 16, temperature is 98 degrees with room air saturations 96% to 98%. Cardiovascular: Regular rate and rhythm. S1 and S2 appreciated. He does have some lower extremity edema. Peripheral pulses are palpable x4 extremities. Calves are nontender. Pulmonary: Breath sounds are clear with no increased work of breathing noted. Chest rises and falls symmetrically with respiration. Chest wall is nontender to palpation. Gastrointestinal: Soft, nontender, nondistended with bowel sounds in all 4 quadrants. Genitourinary: He denies any CVA or suprapubic tenderness. Skin: Warm and dry. Neurologic: He is alert and oriented to person and place. DIAGNOSTIC STUDIES: WBC is 7.6, hemoglobin 7.2, hematocrit 24.4, platelets 166,000. Sodium 145, potassium 4, BUN 84, creatinine 3, blood sugars ranging from 180 to 220, calcium 9.1, phosphorus of 4.9. Chest x-ray reveals stable moderate right pleural effusion with a worsening small left pleural effusion versus bibasilar atelectasis. ASSESSMENT AND PLAN: 1. Cardiorenal syndrome. Creatinine continues to remain stable at 3. He carries an 11 L negative fluid balance cumulative. He is being followed by Nephrology. 2. Encephalopathy. This seems to be improving. He is oriented to person and knows he is in a hospital. Rambles when asked questions. 3. Congestive heart failure. We will continue his medication regimen. 4. Recurrent pleural effusion. Continue diuresis, hemodialysis, and follow. 5. Coronary artery disease. We will continue with his current regimen. Dictated by CLAY Roman for Rigo Franco MD This chart was documented by, CLAY Roman and accurately reflects the services performed, treatment plan and medical decisions as attested by the providers signature Rigo Franco MD. cc: CLAY Roman MD [facility]
[2018-11-24] MEDS ORDERED: DUONEB (A & A) INH PRN (16:39)
[2018-11-24] MEDS: RISPERDAL M-TAB PO SCH (23:00)
[2018-11-24] MEDS: LIPITOR PO SCH (23:01)
[2018-11-25] MEDS: HUMALOG SUBQ SCH ×4 (06:23→23:48)
[2018-11-25] MEDS: PROTONIX PO SCH (06:24)
[2018-11-25 06:44] LABS: BASO# 0.01 X1000 (0.0-0.2); BASO% 0.1 % (0.0-0.8); EOS# 0.15 X1000 (0.0-0.7); EOS% 1.9 % (0.0-10.0); HEMATOCRIT 25.8 % (42.0-52.0); HEMOGLOBIN 7.7 g/dL (14.0-18.0); LYMPH% 21.5 % (20.5-51.1); MCHC 29.8 g/dL (33-37); MCV 87.2 FL (81-99); MONO# 0.92 X1000 (0.11-0.59); MONO% 11.6 % (1.7-9.3); MPV 11.1 FL (7.4-10.4); NEUT# 5.14 X1000 (1.4-6.5); NEUT% 64.9 % (42.2-75.2); PLT 169 X1000 (130-400); RBC 2.96 XMIL (4.7-6.1); RDW 20.8 % (11.5-14.5); WBC 7.92 X1000 (4.8-10.8)
[2018-11-25 07:04] LABS: ALBUMIN 2.5 g/dL (3.5-5.0); CALCIUM 9.2 mg/dL (8.8-10.2); CREATININE 2.7 mg/dL (0.7-1.2); PHOSPHORUS 4.3 mg/dL (2.7-4.5); POTASSIUM 4.3 mmol/L (3.5-5.1)
[2018-11-25] MEDS: FOLIC ACID PO SCH (09:48)
[2018-11-25] MEDS: PHOSLO PO SCH ×3 (09:48→20:02)
[2018-11-25] MEDS: COLCRYS PO SCH (09:48)
[2018-11-25] MEDS: ENTRESTO 24 MG-26 MG TABLET PO SCH ×2 (09:48→23:48)
[2018-11-25] MEDS: MIRALAX PO SCH ×2 (09:49→23:47)
[2018-11-25] MEDS: ICAR-C PO SCH (09:51)
[2018-11-25] MEDS: LASIX PO SCH (09:51)
[2018-11-25] MEDS: HEPARIN SUBQ SCH ×2 (09:51→23:48)
[2018-11-25] MEDS: COREG PO SCH ×2 (09:52→23:47)
[2018-11-25] MEDS: ASPIRIN PO SCH (09:53)
--- NOTE | 2018-11-25 15:59 | PROGRESS NOTE ---
DATE: 11/25/2018 SUBJECTIVE: Mr. Stewart is sitting in bed watching TV, in no acute distress. He is not complaining of chest pain or shortness of breath. He is complaining of lower extremity pain/burning sensation. His encephalopathy seems to be improving. He is oriented x2 and he is following commands. OBJECTIVE: Vital Signs: Temperature 98 degrees, pulse 85, respiratory rate 18, blood pressure 126/63, oxygen saturation 95% on room air. HEENT: Head normocephalic. No trauma. PERRLA. Neck: Supple. No JVD. No masses. Central trachea. Chest: Clear to auscultation. No wheezing. No rales. Abdomen: Soft, nontender, nondistended. Positive bowel sounds. Extremities: There is 1 to 2+ lower extremity edema. No clubbing. No cyanosis. Neurological: This patient is alert and oriented x2. He is not oriented to time. He is following commands and moving all 4 extremities, but he is weak. LABORATORY: WBC 7.9, hemoglobin 7.7, hematocrit 25.8, platelets 169,000. Sodium 144, potassium 4.3, chloride 103, bicarbonate 30, BUN 76, creatinine 2.7, glucose 82, calcium 9.2, albumin 2.5. ASSESSMENT AND PLAN: 1. Acute on chronic kidney disease, likely cardiorenal syndrome. Creatinine continues to remain stable and actually is trending down, as well as the BUN. His urine output is adequate and actually he has been having a negative balance. His total balance is negative at 11.9 L. Nephrology department on board. Will continue with the same management. 2. Encephalopathy, seems to be improving. He is oriented x2. He is following commands, but sometimes he rambles when asked questions. 3. Hypoxemic respiratory failure, resolved. Continue with the same management. 4. Chronic systolic heart failure. We have been diuresing this patient really well. Cardiology Department followed this patient already and like I said, we have a negative balance of almost 12 L. He is not having shortness of breath or chest pain at this moment. 5. Peripheral vascular disease and peripheral neuropathy. Aware. Continue to monitor. 6. Recurrent pleural effusion. Continue with diuresis. 7. Anemia has been stable for the past few days. We will just monitor. 8. History of coronary artery disease. No chest pain at this moment. He has a history of ischemic cardiomyopathy. 9. Type 2 diabetes, controlled. 10. Hyperlipidemia. Continue with Lipitor. 11. Physical deconditioning. This patient hopefully will go to a rehab center. cc: Rigo Franco MD
[2018-11-25] MEDS ORDERED: DULCOLAX PR SCH (21:00)
[2018-11-25] MEDS: RISPERDAL M-TAB PO SCH (23:47)
[2018-11-25] MEDS: LIPITOR PO SCH (23:48)
[2018-11-26] MEDS: PROTONIX PO SCH (06:10)
[2018-11-26] MEDS: HUMALOG SUBQ SCH ×2 (06:10→11:31)
[2018-11-26 06:54] LABS: BASO# 0.01 X1000 (0.0-0.2); BASO% 0.1 % (0.0-0.8); EOS# 0.13 X1000 (0.0-0.7); EOS% 1.8 % (0.0-10.0); HEMATOCRIT 25.9 % (42.0-52.0); HEMOGLOBIN 7.6 g/dL (14.0-18.0); LYMPH# 1.74 X1000 (1.2-3.4); LYMPH% 23.7 % (20.5-51.1); MCH 25.6 PG (27-31); MCHC 29.3 g/dL (33-37); MCV 87.2 FL (81-99); MONO% 10.9 % (1.7-9.3); MPV 11.2 FL (7.4-10.4); NEUT# 4.66 X1000 (1.4-6.5); NEUT% 63.5 % (42.2-75.2); PLT 188 X1000 (130-400); RBC 2.97 XMIL (4.7-6.1); RDW 20.9 % (11.5-14.5); WBC 7.34 X1000 (4.8-10.8)
[2018-11-26 07:35] LABS: ALBUMIN 2.7 g/dL (3.5-5.0); CALCIUM 9.4 mg/dL (8.8-10.2); CREATININE 2.4 mg/dL (0.7-1.2); PHOSPHORUS 4.2 mg/dL (2.7-4.5); POTASSIUM 4.6 mmol/L (3.5-5.1)
[2018-11-26] MEDS: HEPARIN SUBQ SCH (08:03)
[2018-11-26] MEDS: ENTRESTO 24 MG-26 MG TABLET PO SCH (08:03)
[2018-11-26] MEDS: MIRALAX PO SCH ×2 (08:05→11:26)
[2018-11-26] MEDS: COREG PO SCH (08:06)
[2018-11-26] MEDS: PHOSLO PO SCH ×2 (08:08→13:19)
[2018-11-26] MEDS: COLCRYS PO SCH (08:08)
[2018-11-26] MEDS: ASPIRIN PO SCH (08:09)
[2018-11-26] MEDS: LASIX PO SCH (08:10)
[2018-11-26] MEDS: FOLIC ACID PO SCH (08:10)
[2018-11-26] MEDS: ICAR-C PO SCH (08:11)
--- NOTE | 2018-11-26 08:15 | NEPHROLOGY PROGRESS NOTE ---
DATE: 11/26/2018 DATE AND TIME SEEN: 11/26/2018 at 0620. SUBJECTIVE: Mr. Stewart is resting quietly in bed. He states that he has been peeing all night long, just aches all over. Ready to go home. OBJECTIVE: MOST RECENT VITAL SIGNS: His last temperature 98.6 degrees, blood pressure 120/57, heart rate 69, respirations 18. He is on room air, last recorded saturation 98%. He has had 1260 in, 1150 out to void. LABORATORY DATA: Sodium 147, potassium 4.6, chloride 107, CO2 31, BUN 68, creatinine 2.4, glucose 148. His anion gap is 9. His calcium is 9.4, phosphorus 4.2, albumin is 2.7. White count 7.34, hemoglobin 7.6, hematocrit 25.9 with a platelet count of 188,000. PHYSICAL EXAMINATION: General: This is a 62-year-old male resting quietly in bed. Head of the bed is elevated. He is in no acute distress. Skin: Warm and dry. HEENT: Normocephalic, atraumatic. Conjunctiva is pale pink. He has LYNDA. Mucous membranes are dry. Neck: Supple. Trachea midline. No JVD. Cardiovascular: He is regular rate and rhythm. Lungs: Clear to auscultation anteriorly. Equal excursion on room air. Abdomen: Soft, nontender. Positive bowel sounds. Genitourinary: Not inspected. Patient has been voiding large amounts of urine in response to his diuretics. Extremities: Currently have only trace to 1+ lower extremity edema though these are non dependent. Neurological: He is alert to person and to place, though he does drift during conversations. ASSESSMENT AND PLAN: 1. Cardiorenal syndrome. The patient's labs indicate the creatinine has remained stable. It is actually down to 2.4 in spite of having his continued Lasix on board. Adequate urine output. No indications for intervention. 2. Electrolytes and acid-base balance and anemia. These are all low but acceptable. I would like to thank you for allowing us to follow with this patient. Dictated by CLAY Gary for Baron Lemon MD cc: CLAY Gary MD
[2018-11-26 11:23] VITALS: BP 126/65
--- NOTE | 2018-11-26 12:16 | DISCHARGE SUMMARY ---
ADMISSION DATE: 11/05/2018 DISCHARGE DATE: 11/26/2018 DIAGNOSES: 1. Ischemic cardiomyopathy with an ejection fraction of 15 to 20 percent. 2. Systolic heart failure. 3. History of coronary artery disease. 4. Recurrent right pleural effusion with multiple thoracenteses, with the last being 11/07/2018 for 2 L removed. 5. Hypoxic respiratory failure. 6. Chronic obstructive pulmonary disease exacerbation. 7. Cardiorenal syndrome. 8. Chronic kidney disease stage 3. 9. Diabetes mellitus type 2. 10. Hypertension. 11. Folic acid deficiency. CONSULTS: 1. Dr. Del Rosario, pulmonology. 2. Dr. Flavio Parish, general surgery. 3. Dr. Ilan Biswas. 4. Dr. Baron Lemon, nephrology. 5. Dr. Quintanilla, cardiology. PROCEDURES: Thoracentesis. IMAGIN. On 11/05/2018, chest x-ray revealed right basilar atelectasis, infiltrate, and right pleural effusion. 2. On 11/05/2018, CT of the chest revealed slight increase in the size of the large right pleural effusion, cardiomegaly, and interstitial pulmonary edema. 3. On 11/06/2018, renal ultrasound revealed very small amount of ascites. Kidneys are hyperechoic, similar to prior. Stable right renal cyst. No hydronephrosis. 4. On 11/07/2018, chest x-ray revealed right basilar pleural effusion. No infiltrates or change from prior. 5. On 11/10/2018, chest x-ray revealed improved aeration of the right lung base, stable cardiomegaly, and significant pulmonary vascular congestion. 6. On 11/13/2018, chest x-ray revealed pulmonary vascular congestion resolved, stable cardiomegaly, with trace left pleural effusion. 7. On 11/15/2018, CT of the head revealed chronic appearing changes. No definite acute intracranial pathology by CT. 8. On 11/18/2018, chest x-ray revealed decreased pulmonary edema, otherwise stable exam. 9. On 11/24/2018, chest x-ray revealed stable moderate right pleural effusion, worsening of the small left pleural effusion with basilar atelectasis. MICROBIOLOGY: 1. Blood cultures x2 revealed no growth after 5 days. 2. Stool for occult blood was negative. HOSPITAL COURSE: Mr. Stewart presented to the emergency room with shortness of breath and increasing swelling of the abdomen and lower extremities. He was found to be in acute systolic heart failure for which he was diuresed. Cardiology was consulted. He was placed on dobutamine. Medications were adjusted and this has remained stable. He does have a history of recurrent right pleural effusions, having multiple thoracenteses in the past. He did undergo a thoracentesis on 11/07/2018 which was ultrasound-guided for 2 L removed. He did have improved aeration of his lung. His COPD exacerbation was treated with DuoNebs. Blood sugars were monitored. He was treated with pattern of blood glucose with sliding scale insulin. Dr. Lemon followed the patient for chronic kidney disease stage 3 and cardiorenal syndrome. With diuresis, he had good urine output. He has been -12,000 cumulative this hospitalization. We trended electrolytes and repleted, and treated this with appropriate results. He was found to have folic acid deficiency, which we did supplement. He does have a history of gout for which we treated with colchicine. Thankfully, he has improved and he is ready to be discharged to rehab. DISCHARGE VITAL SIGNS: Blood pressure is 126/65, with a heart rate of 70, respirations are 18, temperature is 98.2 degrees, room air saturations are 96 to 100 percent. PHYSICAL EXAMINATION: Cardiovascular: Regular rate and rhythm. S1 and S2 are appreciated. He has no murmur. He has 1+ lower extremity edema bilateral. Calves are nontender to palpation. Pulmonary: Breath sounds are clear. Chest rises and falls symmetric with respiration. Chest wall is nontender to palpation. Gastrointestinal: Abdomen is soft, nontender, nondistended, with bowel sounds in all 4 quadrants. Neurologic: He is alert and oriented x2. He does follow commands. DISCHARGE MEDICATIONS: 1. Atorvastatin 80 mg p.o. at bedtime. 2. Novolin 70/30 with 8 units at bedtime. 3. Dulcolax 10 mg at bedtime. 4. Risperdal 0.25 p.o. at bedtime. 5. Aspirin 81 mg daily. 6. Colchicine 0.3 p.o. daily. 7. Carvedilol 6.25 daily. 8. DuoNebs q.4 hours p.r.n. wheezing. 9. Entresto one b.i.d. 10. Folic acid 1 mg daily. 11. Lasix 80 mg p.o. daily. 12. Icar-C 1 p.o. daily. 13. MiraLAX 17 g b.i.d. 14. PhosLo 667 mg p.o. t.i.d. with meals. 15. Ultram 50 mg p.o. b.i.d. p.r.n. pain. 16. Vitamin D2 50,000 units p.o. every 7 days. DISPOSITION: He is being discharged in transfer to rehab in stable condition with family members present. TIME SPENT: This is a greater than 30 minute discharge. Dictated by CLAY Roman for Rigo Franco MD This chart was documented by, CLAY Roman and accurately reflects the services performed, treatment plan and medical decisions as attested by the providers signature Rigo Franco MD. cc: CLAY Roman MD
== END 2018-11-26 13:59 | DRG 291 ==
LOC: SUPCPDRO → ED 13:00 → EDIPHOLD 19:28 → SUATTDRO 19:28 → 3N 19:57 → 3S 11-06 16:42 → 4N 11-10 17:49 → ICU 11-15 04:30 → 4N 11-16 12:35
PROVIDERS: ATTEND Internal Medicine
CPT/HCPCS: 32421; 32555; 36430; 70220; 70450; 71010; 71020; 71045; 71046; 71250; 76770; 80048; 80053; 80069; 80101; 80301; 80307; 80324; 80345; 80346; 80353; 80358; 80361; 80365; 81001; 81050; 82270; 82550; 82570; 82575; 82607; 82728; 82746; 82805; 82948; 83540; 83550; 83735; 83880; 83992; 84100; 84132; 84156; 84300; 84484; 85014; 85018; 85025; 85610; 85730; 86140; 86850; 86900; 86901; 86920; 87040; 93005; 93010; 94640; 94760; 94761; 94799; 96374; 96375; 97162; 97530; 99285; A9270; G0431; G0434; G0479; G0480; J0696; J1250; J1644; J1815; J1940; J2405; J2930; J3475; J7030; P9016; P9047; XXXXX

== ENCOUNTER 2019-01-20 18:41 | Inpatient (IN) ==
[2019-01-20 23:23] LABS: BASO# 0.01 X1000 (0.0-0.2); BASO% 0.2 % (0.0-0.8); EOS# 0.02 X1000 (0.0-0.7); EOS% 0.5 % (0.0-10.0); HEMATOCRIT 39.4 % (42.0-52.0); HEMOGLOBIN 12.4 g/dL (14.0-18.0); LYMPH# 1.65 X1000 (1.2-3.4); LYMPH% 40.8 % (20.5-51.1); MCH 28.5 PG (27-31); MCHC 31.5 g/dL (33-37); MCV 90.6 FL (81-99); MONO# 0.24 X1000 (0.11-0.59); MONO% 5.9 % (1.7-9.3); MPV 11.7 FL (7.4-10.4); NEUT# 2.12 X1000 (1.4-6.5); NEUT% 52.6 % (42.2-75.2); PLT 138 X1000 (130-400); RBC 4.35 XMIL (4.7-6.1); RDW 21.7 % (11.5-14.5); WBC 4.04 X1000 (4.8-10.8)
[2019-01-20 23:43] LABS: INR 0.95; PROTIME 13.5 Seconds (11.0-16.0)
[2019-01-20 23:44] LABS: PTT 42.5 Seconds (22.3-41.8)
[2019-01-21 00:32] LABS: ALB/GLOB RATIO 0.9; ALBUMIN 3.5 g/dL (3.5-5.0); CALCIUM 8.7 mg/dL (8.8-10.2); CREATININE 1.8 mg/dL (0.7-1.2); POTASSIUM 4.4 mmol/L (3.5-5.1); TOTAL BILIRUBIN 1.01 mg/dL (0.20-1.00); TOTAL PROTEIN 7.3 g/dL (6.3-8.3)
[2019-01-21] MEDS ORDERED: LASIX IV ONE (00:36)
[2019-01-21] MEDS ORDERED: TYLENOL PO PRN (04:34)
[2019-01-21] MEDS ORDERED: ZOFRAN IV PRN (04:34)
[2019-01-21] MEDS ORDERED: ULTRAM PO PRN (04:34)
[2019-01-21] MEDS: HUMALOG SUBQ SCH ×5 (04:34→23:38)
[2019-01-21] MEDS: DUONEB (A & A) INH PRN (05:33)
--- NOTE | 2019-01-21 05:37 | Diag Imaging Result Doc PS360 ---
EXAM: CHEST-2 VIEWS HISTORY: PLEURAL EFFUSION TECHNIQUE: Chest, three views COMPARISON: 12/10/2018 FINDINGS: There is a moderate to large right pleural effusion. There is atelectasis in the lower right lung. There may be underlying infiltrates as well. The heart is enlarged. The left lung is clear. IMPRESSION: Large right pleural effusion with right-sided atelectasis Electronically signed by Juan Henderson 01/21/2019 5:35 AM
[2019-01-21] MEDS ORDERED: VITAMIN D PO SCH (06:00)
--- NOTE | 2019-01-21 07:06 | EKG Report ---
Test Performed on : 01/20/2019 6:55:12 PM Test Reason : sob Blood Pressure : / mmHG Vent. Rate : 087 BPM Atrial Rate : 075 BPM P-R Int : 000 ms QRS Dur : 106 ms QT Int : 404 ms P-R-T Axes : 000 -40 140 degrees QTc Int : 486 ms Accelerated Junctional rhythm. Left axis deviation Inferior infarct (cited on or before 02-OCT-2018) T wave abnormality, consider lateral ischemia Abnormal ECG When compared with ECG of 10-DEC-2018 12:25, (Unconfirmed) Junctional rhythm. has replaced Sinus rhythm. Nonspecific T wave abnormality has replaced inverted T waves in Inferior leads Unconfirmed Result
--- NOTE | 2019-01-21 07:20 | HISTORY AND PHYSICAL ---
CHIEF COMPLAINT: Shortness of breath. HISTORY OF PRESENT ILLNESS: Mr. Stewart is a 63-year-old male. He was reportedly told to come 3 days ago for a thoracentesis by Dr. Quintanilla, I believe. He did not come and today started having increasing shortness of breath. X-ray was obtained which showed a large right pleural effusion as well as atelectasis. A CT of the chest is pending. He will be admitted for further evaluation and treatment. PAST MEDICAL HISTORY: 1. Severe ischemic cardiomyopathy with systolic congestive heart failure, ejection fraction 20- 25%. 2. Severe coronary artery disease. 3. Hypertension. 4. Hyperlipidemia. 5. Diabetes mellitus type 2. 6. Medical noncompliance. 7. History of cocaine abuse. 8. Recurrent right pleural effusion that has required thoracentesis. 9. Gout. 10.Folic acid deficiency. 11.Constipation. 12.COPD. 13.Chronic kidney disease stage 3. PREVIOUS SURGICAL HISTORY: 1. Multiple thoracenteses. 2. Coronary stenting on multiple occasions. 3. Right foot surgery. SOCIAL HISTORY: He quit smoking in 2018. Prior to that, he smoked a pack a day for several years. Denies any current illicit drugs. No alcohol. FAMILY HISTORY: Positive for coronary artery disease. ALLERGIES: No known drug allergies. HOME MEDICATIONS: List of home medications has not been reconciled. An order was placed for nursing to reconcile home medications. I believe the patient takes 1. Atorvastatin 80 mg p.o. daily. 2. NovoLog 70/30, 8 units subcu nightly. 3. Apresoline 75 mg p.o. t.i.d. 4. Aspirin 81 mg p.o. daily. 5. Coreg 6.25 mg p.o. twice a day. 6. Colchicine 0.3 mg p.o. daily. 7. DuoNeb. 8. Folic acid 1 mg p.o. daily. 9. Furosemide 80 mg p.o. daily. 10.Isosorbide 60 mg p.o. 3 times a day. 11.MiraLAX 17 grams p.o. twice a day. 12.Neurontin 100 mg p.o. twice a day. 13.PhosLo 667 mg p.o. t.i.d. 14.Ultram 50 mg p.o. twice a day p.r.n. 15.Vitamin D2 50,000 units p.o. every 7 days. 16.Allopurinol 100 mg p.o. twice a day. REVIEW OF SYSTEMS: Fourteen point review of systems conducted with the patient. Pertinent positives as listed above in the HPI. All other systems reviewed and found to be negative. PHYSICAL EXAMINATION: VITAL SIGNS: Temp 97.8 degrees, pulse 91, respirations 16, blood pressure 169/107, oxygen saturation 97% on room air. GENERAL: 63-year-old male lying in the ER stretcher. He is in mild respiratory distress. Answers all questions appropriately. HEENT: Head is atraumatic, normocephalic. Pupils equal, round and react to light. Extraocular eye movements intact. Sclerae nonicteric. Conjunctivae are mildly pale. Oral mucosa is moist. NECK: Supple. Mild JVD noted. Trachea midline. No cervical lymphadenopathy. CARDIAC: S1, S2 appreciated. No murmurs, gallops, rubs. 1+ pedal pulses bilaterally. LUNGS: Right is decreased, mild crepitations noted throughout the air rawls. No rhonchi. No wheezing. Symmetric rise and fall of respirations. ABDOMEN: Soft, nondistended, nontender. Bowel sounds present in all 4 quadrants. Normoactive. No pulsatile masses. No organomegaly. EXTREMITIES: No cyanosis, clubbing. Trace edema bilateral lower extremities. NEUROLOGICAL: Alert and oriented x3. No focal motor deficits. Otherwise nonfocal examination. GENITOURINARY: No bladder distention. The patient voids. Otherwise deferred. DIAGNOSTIC DATA: A chest x-ray shows a right pleural effusion and atelectasis. LABORATORY DATA: WBC 4.04, hemoglobin 12.4, hematocrit 39.4, platelet count 138,000. Sodium 146, potassium 4.4, chloride 108, carbon dioxide 25, BUN 20, creatinine 1.8, glucose 147. ProBNP greater than 35,000. ASSESSMENT AND PLAN: 1. Right pleural effusion. CT of the chest has been ordered. We will order an ultrasound-guided thoracentesis for this morning. 2. Systolic heart failure. Continue Lasix 40 mg IV q.12 hours. We will continue his Coreg at 6.25 b.i.d. 3. Hypoxic respiratory failure secondary to #1. Continue O2. 4. Hypertension. Continue home medications. 5. Hyperlipidemia. Continue statins. 6. Diabetes mellitus type 2. Sliding scale insulin with fingerstick blood sugars before meals and at bedtime. Further recommendations as per patient's clinical course. Dictated by CLAY Baum for Kumar Gordon MD I have performed a face to face diagnostic evaluation. Labs/ Xrays- reviewed. Exam- chest- rales, CV- regular A/P- Rt Pleural effusion- Admit- IR thoracentesis Dr. Gordon cc: CLAY Baum MD Hiteshri S. Bhavsar, MD Ashish K. Basu, MD [facility]IT[facility]ishma
--- NOTE | 2019-01-21 07:46 | Diag Imaging Result Doc PS360 ---
EXAM: CT THORAX W/O CONTRAST 01/21/2019 HISTORY: EMPYEMA TECHNIQUE: This exam was performed using automated exposure control, adjustment of mA or kV according to patient size, and/or use of iterative reconstruction technique. COMMENT: The current examination is compared with 11/05/2018. There is a large right pleural fluid collection which is slightly larger than on the previous study. There is considerable compressive atelectasis on the right. There is a small somewhat irregular opacity present posteriorly in the left lower lobe on image 79 which is slightly denser than on the previous examination. Some subsegmental atelectasis which was present previously in the lingula has resolved. There is apparent scarring associated with localized emphysematous change in the left upper lobe laterally around image 28 which has not changed appreciably since the previous study. There are also emphysematous changes in the right upper lobe adjacent to the pleura. There is anasarca similar to the previous study. There is ascites which was also apparently present on the previous study. There is no evidence of bronchial obstruction. There is some prevascular and precarinal adenopathy which has not changed significantly since the previous study. There is extensive coronary calcification. There are degenerative changes in the right acromioclavicular joint and mild spondylotic changes in the thoracic spine. No evidence of acute bony abnormality is present. IMPRESSION: Slightly worsened right pleural fluid collection. The CT density of this fluid collection is less than 10 Hounsfield units, consistent with a transudate. Compressive atelectasis of the right lung. Other nonacute findings as described above. Electronically signed by Chan Abdi 01/21/2019 7:43 AM
--- NOTE | 2019-01-21 09:22 | Diag Imaging Result Doc PS360 ---
EXAM: US THORACENTESIS W/IMAGE GUIDE HISTORY: right effusion TECHNIQUE: Ultrasound-guided thoracentesis COMPARISON: None. FINDINGS: Prior to the procedure I discussed the risk and benefits with the patient. Primary risks include bleeding, infection, and pneumothorax. Questions were answered. Consent was given. The permit was signed. Ultrasound was used to localize the largest fluid collection. This area was cleaned and draped in the normal fashion. Lidocaine was used as a local anesthetic. Needle and catheter were advanced into the fluid collection on the first attempt without difficulty. The needle was withdrawn. The catheter was hooked to hand suction. Approximately 1.5 L of thin yellowish fluid were withdrawn without difficulty. The catheter was then withdrawn. No immediate postprocedural complications. IMPRESSION: Ultrasound-guided thoracentesis with no immediate complication. Electronically signed by Juan Henderson 01/21/2019 9:20 AM
--- NOTE | 2019-01-21 09:31 | Diag Imaging Result Doc PS360 ---
EXAM: CHEST-2 VIEWS HISTORY: POST RIGHT THORA TECHNIQUE: Inspiratory and expiratory chest, two views COMPARISON: 10:55 AM on 01/20/2019 FINDINGS: Inspiratory and expiratory chest two views. Interval decrease in the size of the right pleural effusion. There has been partial reexpansion of the mid and lower right lung. A small effusion remains. No pneumothorax. The heart is enlarged. IMPRESSION: No postprocedural pneumothorax following the right sided thoracentesis. Follow-up films in four hours will be obtained. Electronically signed by Juan Henderson 01/21/2019 9:29 AM
[2019-01-21] MEDS: MIRALAX PO SCH ×2 (10:03→23:33)
[2019-01-21] MEDS: ICAR-C PO SCH (10:04)
[2019-01-21] MEDS: FOLIC ACID PO SCH (10:04)
[2019-01-21] MEDS: PHOSLO PO SCH ×3 (10:04→18:36)
[2019-01-21] MEDS: COREG PO SCH ×2 (10:05→23:33)
[2019-01-21] MEDS: COLCRYS PO SCH (10:05)
[2019-01-21] MEDS: ASPIRIN PO SCH (10:06)
[2019-01-21] MEDS: ENTRESTO 24 MG-26 MG TABLET PO SCH ×2 (10:59→23:34)
--- NOTE | 2019-01-21 13:18 | Diag Imaging Result Doc PS360 ---
EXAM: CHEST-2 VIEWS HISTORY: post throacentesis TECHNIQUE: Inspiratory and expiratory chest, two views COMPARISON: 9:20 AM FINDINGS: The appearance of the chest is unchanged from the films taken earlier. No postprocedural pneumothorax. Electronically signed by Juan Henderson 01/21/2019 1:16 PM
--- NOTE | 2019-01-21 14:41 | PROGRESS NOTE ---
DATE: 01/21/2019 SUBJECTIVE: Today, Mr. Stewart referred to be feeling a little better after he has had a right- sided thoracentesis whereby 1.5 L was removed. He still complains of edema almost everywhere else. OBJECTIVE: Vital Signs: His current vitals blood pressure is 153/118, pulse 84, respirations 24, and temperature 97.6 degrees. The patient was saturating 97% on room air. General: Mr. Stewart is a 63-year-old gentleman. He was in bed. He did not seem to be in any distress. HEENT: Mucosa is slightly pale but anicteric. Neck: Supple. There is positive JVD. Chest: Air entry is bilaterally reduced. There are crackles in posterior lung rawls, almost filling all the way up to the mid lung rawls. Cardiovascular: Regular rate and rhythm. Questionable positive S3. GI: Abdomen is soft, and is distended. There is positive edema on the lateral aspect of the abdominal wall. Extremities: About 4+ pedal edema. 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 LABORATORY DATA: Data has been reviewed. Chemistry shows a creatinine of 1.8 which is slightly better than the one we have. The latest we have, which was in November, and it was 2.1. A chest x- ray on admission did show a large right pleural effusion with right side atelectasis. CURRENT MEDICATIONS: Also have been reviewed. He is on IV Lasix at 40 q.12. He is also on Entresto and Coreg. ASSESSMENT: 1. Acute hypoxemic respiratory failure secondary to pleural effusions. 2. Acute on chronic systolic heart failure with the ejection fraction said to be 20% on a recent stress test. 3. Severe coronary artery disease status post stents, associated with ischemic cardiomyopathy. 4. Hypertension. We will continue to titrate home medications for adequate blood pressure control. 5. Diabetes mellitus controlled. 6. Medication non-compliance. Patient has been advised. cc: MD PILO Isabel
--- NOTE | 2019-01-21 14:43 | PROVIDER DOCUMENTATION ---
This chart was entered by Ludivina Loyd Scribe, acting as scribe for Altagracia Marinelli MD. HPI-General Adult - General Chief Complaint: Shortness of Breath Stated Complaint: FLUID Time Seen by Provider: 01/20/19 22:04 Source: patient Allergies/Adverse Reactions: Patient Allergies Allergy/AdvReac Type Severity Reaction Status Date / Time No Known Allergies Allergy Verified 12/10/18 12:03 Home Medications: Home Medication List Medication Instructions Recorded Confirmed Last Taken Type Atorvastatin Calcium 80 mg PO HS 02/25/16 11/05/18 06/04/18 20:00 History Hum Insulin NPH/Reg Insulin Hm 8 unit SQ HS 01/29/18 11/05/18 06/04/18 20:00 History [Novolin 70-30 100 Unit/ml Vial] Aspirin 81 mg PO DAILY chewtab 04/22/18 11/05/18 06/05/18 07:00 Rx Folic Acid 1 mg PO DAILY tablet 04/22/18 11/05/18 06/05/18 07:00 Rx Polyethylene Glycol 3350 [Miralax] 17 gm PO BID powder, packet 04/22/18 11/05/18 06/05/18 07:00 Rx Albuterol 2.5MG/Ipratrop 0.5MG 3 ml INH Q4H PRN PRN #30 neb 09/03/18 11/05/18 Unknown Rx [Duoneb (A & A)] Furosemide 80 mg PO DAILY #90 tab 09/03/18 11/05/18 Unknown Rx Calcium Acetate [Phoslo] 667 mg PO TID CC #90 tab 10/21/18 11/05/18 Unknown Rx Colchicine [Colcrys] 0.3 mg PO DAILY #60 tab 10/21/18 11/05/18 Unknown Rx Ergocalciferol (Vitamin D2) 50,000 unit PO Q7D #30 cap 10/21/18 11/05/18 Unknown Rx [Vitamin D] Bisacodyl [Dulcolax] 10 mg OR QHS supp 11/26/18 Unknown Rx Carvedilol [Coreg] 6.25 mg PO BID #90 tab 11/26/18 Unknown Rx Iron Carbonyl/Ascorbic Acid 1 ea PO DAILY #60 tab 11/26/18 Unknown Rx [Icar-C] Risperidone [Risperdal M-Tab] 0.25 mg PO QHS #30 tab.rapdis 11/26/18 Unknown Rx Sacubitril/Valsartan [Entresto 24 1 ea PO BID #60 tab 11/26/18 Unknown Rx mg-26 mg Tablet] Tramadol [Ultram] 50 mg PO BID PRN PRN #20 tab 11/26/18 Unknown Rx - History of Present Illness -Gen Adult Nature of Presenting Problems: 63 yom c/o bilat leg edema, dyspnea, and bloated. pt was sent to er [address] abrams for fluid build up and to have it drawn but pt did not come. pt sts he comes to dr to get fluid drawn every month. pt sts he isn't on o2 at home but will be soon. pt denies cp. Review of Systems - Adult - REVIEW OF SYSTEMS - ADULT Constitutional: reports: no symptoms reported. denies: chills, fever, fatique Eyes: reports: no symptoms reported Ears, Nose, Mouth & Throat: reports: no symptoms reported Cardiovascular: reports: no symptoms reported. denies: chest pain, edema, palpitations Respiratory: reports: see HPI, dyspnea on exertion. denies: cough, pleurisy, wheezing Gastrointestinal: reports: see HPI, other (bloating). denies: diarrhea, nausea, vomiting Genitourinary: reports: no symptoms reported Musculoskeletal: reports: no symptoms reported Integumentary: reports: no symptoms reported Neurological: reports: no symptoms reported Psychiatric: reports: no symptoms reported Endocrine: reports: no symptoms reported Hematologic/Lymphatic: reports: no symptoms reported Allergic/Immunologic: reports: no symptoms reported All Other Systems: Reviewed and Negative Past History - Adult - PAST MEDICAL HISTORY-ADULT Review of Records: reports: Old Records Reviewed, Nursing Assessment Review, Medications Reviewed, Social history reviewed & non-contributory. Major Childhood Illnesses: reports: denies history Cardiovascular: reports: CAD, CHF, HTN, hyperlipidemia Respiratory: reports: COPD Gastrointestinal: reports: denies history Obstetrical/Gynecological: reports: denies history Genitourinary: reports: denies history Musculoskeletal: reports: denies history Neurological: reports: CVA Endocrine/Immune: reports: Diabetes Other Conditions: reports: denies history - PRIOR SURGERIES/PROCEDURES Surgical/Procedure History: reports: appendectomy, CABG, cholecystectomy, cardiac stent - IMMUNIZATION STATUS Childhood Immunizations: See Nurse Assessment Flu Vaccine: See Nurse Assessment - FAMILY HISTORY Family History: reviewed, not pertinent - SOCIAL HISTORY Smoking: cigarettes, greater than 1 pack/day Provider spent 3-5 mins advising pt. on dangers of tobacco.: Discussed manners to quit use, and f/u contacts for add'l counseling. Substance Use: none/never Physical Exam-General - PHYSICAL EXAM-ADULT Initial Vital Signs Reviewed: Yes - CONSTITUTIONAL General Appearance: appears well, alert, no apparent distress - EYES Eyes: PERRL/EOMI, pink conjunctivae - HEAD, EARS, NOSE, MOUTH & THROAT HENMT: normocephalic/atraumatic, moist mucous membranes, normal ENT inspection - NECK Neck: non-tender, full range of motion, supple, normal inspection - RESPIRATORY Respiratory: chest non-tender, lungs clear, normal breath sounds - CARDIOVASCULAR Cardiovascular: normal peripheral pulses, regular rate, rhythm - GASTROINTESTINAL (ABDOMEN) Abdominal Exam: normal bowel sounds, non tender, soft, no organomegaly, no pulsatile mass. negative: distended, rebound, tenderness - LYMPHATIC Lymphatic: no adenopathy - MUSCULOSKELETAL Back Exam: normal inspection, no CVA tenderness, no vertebral tenderness Extremity: normal range of motion, non-tender, normal inspection, no calf tenderness, normal capillary refill, pedal edema (bilat 2+ up to thigh). negative: no pedal edema, deformity, erythema, inflammation Peripheral Pulses: radial (R): 2+, radial (L): 2+ - SKIN Integumentary: normal color, normal turgor, warm/dry - NEUROLOGIC Neurologic: grossly normal, no motor/sensory deficits - PSYCHIATRIC Psych/Mental Status: normal mood/affect, normal thought content, normal thought process, oriented x 3 Progress - PLAN OF CARE/RESULTS Progress/Plan/Lab Results: Vital Signs - 8 hr 01/20/19 18:47 01/20/19 22:26 01/20/19 22:27 Temperature 97.8 F Pulse Rate 87 92 H 91 H Respiratory Rate 18 25 H 4 L Blood Pressure 155/97 169/107 O2 Sat by Pulse Oximetry 100 97 Orders Category Date Time Status cxr [CHEST-2 VIEWS] [RAD] Stat Exams 01/20/19 22:35 Ordered CBC WITH ELECTRONIC DIFF [HEME] Stat Lab 01/20/19 22:35 Uncollected COMPREHENSIVE METABOLIC PANEL [CHEM] Stat Lab 01/20/19 22:35 Uncollected bnp [PRO B-NATRIURETIC PEPTIDE] Stat Lab 01/20/19 22:37 Uncollected EKG [EKG] Stat Ther 01/20/19 18:53 Ordered Result Diagrams: 01/20/19 23:15 01/20/19 23:15 - EKG 1 Time of EKG reading by physician:: 18:55 EKG Read and Signed by:: Altagracia Marinelli EKG Interpretation (*Must complete 3 of following elements*): Abnormal Rate: 87 (inferior infarct, age undetermined ) Rhythm: acclerated junctional rhythm [place]: left QRS: normal ST Wave: non-specific ST changes (t wave abnormality consider lateral ischemia) - XRAY 1 XRAY: Bilateral XRAY Study: Chest (Impression: 1. Large right pleural effusion w/likely component of loculation laterally. There is overlyng consolidation which likely represents atelectasis. Superimposed infection or aspiration could potentially also be present. 2. Cardiomegaly w/mild pulmonary edema.) Impression: Abnormal Comparison with other Films: no prior study - CONSULTS/PCP/HOSPITALIST Notification #1 *Consult/PCP/Hospitalist*: Dr. Gordon Time Discussed: 00:33 Reason/Comments: Admit pt Consult Disposition: Admit Departure - Departure Date of Disposition Decision: 01/21/19 Time of Disposition Decision: 00:34 DIAGNOSIS: CHF (congestive heart failure), Lower extremity edema, Pleural effusion Disposition: ADMITTED INPATIENT 09 Certified Medical Emergency: Emergent Condition: Stable Referrals and Follow-Ups: Sanchez Mcodnald MD [Primary Care Provider] - - Critical Care Note This patient required my direct & personal management of CC.: No Attestation - Physician/ EUGENIO Attestation Patient care was provided by Advanced Practice Provider:: No The physician spent face to face time with patient:: Yes Advanced Practice Provider documentation review:: Supervising physician onsite and consulted in the evaluation and care of this patient. The physician did have a face to face encounter with the patient. This chart was documented by the indicated scribe, (Ludivina Loyd Scribe) and accurately reflects the services I performed and decisions made by me, Yves,Altagracia Silva MD, as attested by the provider's signature.
[2019-01-21] MEDS: LASIX IV SCH ×2 (14:52→23:34)
[2019-01-21] MEDS: LIPITOR PO SCH (23:31)
[2019-01-21] MEDS: RISPERDAL M-TAB PO SCH (23:34)
[2019-01-22] MEDS: HUMALOG SUBQ SCH ×6 (01:31→22:54)
--- NOTE | 2019-01-22 07:21 | EKG Report ---
Test Performed on : 01/22/2019 07:09:14 AM Test Reason : chest pain Blood Pressure : / mmHG Vent. Rate : 067 BPM Atrial Rate : 067 BPM P-R Int : 118 ms QRS Dur : 112 ms QT Int : 472 ms P-R-T Axes : 040 -31 166 degrees QTc Int : 498 ms Normal sinus rhythm. Left axis deviation T wave abnormality, consider lateral ischemia Prolonged QT Abnormal ECG When compared with ECG of 20-JAN-2019 18:55, (Unconfirmed) Sinus rhythm. has replaced Junctional rhythm. Confirmed by Marko RAYMOND, Demetris Victoria ([id number]) on 01/22/2019 6:39:18 PM
--- NOTE | 2019-01-22 07:24 | Diag Imaging Result Doc PS360 ---
EXAM: CHEST-PORTABLE 01/22/2019 HISTORY: dyspnea TECHNIQUE: AP portable at 0559 COMMENT: There is pleural thickening and/or loculated effusion on the right. There is hazy alveolar opacity present in the parahilar portions of the right upper middle and lower lobes with volume loss and opacity in the right base. The left lung is relatively clear. The heart size is enlarged. Compared to the previous study of 01/21/2019, perihilar opacity on the right has worsened slightly. IMPRESSION: Worsened right pneumonia and atelectasis. Electronically signed by Chan Abdi 01/22/2019 7:22 AM
[2019-01-22 08:05] LABS: BASO# 0.01 X1000 (0.0-0.2); BASO% 0.3 % (0.0-0.8); EOS# 0.05 X1000 (0.0-0.7); EOS% 1.3 % (0.0-10.0); HEMATOCRIT 32.7 % (42.0-52.0); HEMOGLOBIN 10.1 g/dL (14.0-18.0); LYMPH# 1.48 X1000 (1.2-3.4); LYMPH% 38.6 % (20.5-51.1); MCH 28.1 PG (27-31); MCHC 30.9 g/dL (33-37); MCV 90.8 FL (81-99); MONO# 0.35 X1000 (0.11-0.59); MONO% 9.1 % (1.7-9.3); MPV 11.8 FL (7.4-10.4); NEUT# 1.94 X1000 (1.4-6.5); NEUT% 50.7 % (42.2-75.2); PLT 111 X1000 (130-400); RDW 21.3 % (11.5-14.5); WBC 3.83 X1000 (4.8-10.8)
[2019-01-22 08:14] LABS: CALCIUM 8.4 mg/dL (8.8-10.2); CREATININE 1.8 mg/dL (0.7-1.2); MAGNESIUM 1.8 mg/dL (1.5-2.7); POTASSIUM 3.8 mmol/L (3.5-5.1)
[2019-01-22] MEDS: PHOSLO PO SCH ×3 (09:05→18:48)
[2019-01-22] MEDS: COLCRYS PO SCH (09:06)
[2019-01-22] MEDS: COREG PO SCH ×2 (09:06→20:58)
[2019-01-22] MEDS: FOLIC ACID PO SCH (09:06)
[2019-01-22] MEDS: ENTRESTO 24 MG-26 MG TABLET PO SCH ×2 (09:06→20:58)
[2019-01-22] MEDS: ASPIRIN PO SCH (09:07)
[2019-01-22] MEDS: MIRALAX PO SCH ×2 (09:09→20:58)
[2019-01-22] MEDS: ICAR-C PO SCH (09:10)
[2019-01-22] MEDS: LASIX IV SCH (12:28)
--- NOTE | 2019-01-22 17:35 | PROGRESS NOTE ---
DATE: 01/22/2019 SUBJECTIVE: This morning Mr. Stewart refers to be doing a lot better. He was sitting up at the edge of the bed. Does not seem to be in any distress. OBJECTIVE: HEENT: Mucosa is pink and moist. Anicteric. Acyanotic. Neck: Supple. There is still positive JVD. Vital Signs: Blood pressure is 147/85, pulse of 69, respirations 16, temperature 97.8. Patient was saturating 100% on room air. Chest: Air entry was bilaterally reduced. There are still some crackles in the posterior lung rawls. Cardiovascular: Regular rate and rhythm. Did not hear any murmurs. Gastrointestinal: Abdomen is soft, distended, but nontender. There is a positive edema on the lateral aspect of the abdominal wall. Extremities about 3+ pedal edema. Central Nervous System: Patient is awake, alert and oriented. Patient I's and O's: Only 200 of urine is documented, but it looks like he has gotten more than that. His current weight is 101. PATIENT MEDICATIONS: Have all been reviewed. Discontinue on 40 mg of IV Lasix. ASSESSMENT: 1. Acute hypoxemic respiratory failure secondary to pleural effusions and pulmonary edema. 2. Acute on chronic systolic heart failure with ejection fraction of 20% on recent stress test. 3. Severe coronary artery disease status post multiple stents, associated with ischemic cardiomyopathy. 4. Hypertension, controlled. 5. Diabetes mellitus. 6. Medication noncompliance. Patient has been counseled. PLAN: So, in general, we are going to continue with the diuretic therapy. He seems to be diuresing adequately. I do not think it is well documented. Will request for strict I's and O's and proper documentation of the patient's urine output. cc: Sanjay Cronin MD
[2019-01-22] MEDS: LIPITOR PO SCH (20:58)
[2019-01-22] MEDS: RISPERDAL M-TAB PO SCH (22:54)
[2019-01-23] MEDS: HUMALOG SUBQ SCH ×4 (05:01→14:46)
[2019-01-23] MEDS: DUONEB (A & A) INH PRN (08:13)
[2019-01-23 08:24] VITALS: BP 132/60
[2019-01-23] MEDS: ENTRESTO 24 MG-26 MG TABLET PO SCH (09:46)
[2019-01-23] MEDS: FOLIC ACID PO SCH (09:46)
[2019-01-23] MEDS: PHOSLO PO SCH ×2 (09:46→14:46)
[2019-01-23] MEDS: ASPIRIN PO SCH (09:46)
[2019-01-23] MEDS: COREG PO SCH (09:46)
[2019-01-23] MEDS: ICAR-C PO SCH (09:46)
[2019-01-23] MEDS: COLCRYS PO SCH (09:46)
[2019-01-23] MEDS: MIRALAX PO SCH (09:49)
[2019-01-23] MEDS: LASIX IV SCH ×2 (14:46)
--- NOTE | 2019-01-24 15:46 | DISCHARGE SUMMARY ---
ADMISSION DATE: 01/21/2019 DISCHARGE DATE: 01/23/2019 DISPOSITION: Home. FOLLOW-UP: 1. Dr. Mcdonald. 2. Dr. Robins. CONSULTATION DURING ADMISSION: None. IMAGING STUDIES OF SIGNIFICANCE: 1. A chest x-ray initially did show a large right pleural effusion. 2. A CT scan of the chest shows slightly worsened right pleural effusion, compressive atelectasis. 3. Ultrasound-guided thoracentesis was done 1.5 thin yellowish fluid was withdrawn without difficulty. 4. Repeated chest x-ray showed some improvement. ADMISSION DIAGNOSES: 1. Right pleural effusion. 2. Systolic heart failure. 3. Hypoxemic respiratory failure. 4. Hypertension. DIAGNOSES AT TIME OF DISCHARGE: 1. Acute hypoxemic respiratory failure secondary to pleural effusion and pulmonary edema. 2. Acute on chronic systolic heart failure with ejection fraction of 20% on recent stress test. 3. Severe coronary artery disease status post multiple stents, associated with dilated ischemic cardiomyopathy. 4. Recurrent right pleural effusion status post ultrasound-guided thoracentesis. 5. Hypertension. 6. Diabetes mellitus. 7. Medication noncompliance. DISCHARGE MEDICATIONS: 1. Atorvastatin 80 mg p.o. at bedtime. 2. MiraLAX. 3. Risperdal 0.25 p.o. at bedtime. 4. Hydralazine 25 mg b.i.d. 5. Colchicine 0.3 mg p.o. daily. 6. Coreg 6.25 b.i.d. 7. Entresto 1 tablet b.i.d. 8. Furosemide 80 mg p.o. daily. 9. Gabapentin 100 mg b.i.d. 10. Imdur 20 mg 3 times per day. 11. Folic Acid 1 tab daily. PRESENTING COMPLAINT: Shortness of breath. HISTORY OF PRESENTING COMPLAINT: Mr. Stewart is a 63 years gentleman who is known to have severe congestive heart failure as a result of ischemic cardiomyopathy and drug related as well in the past who has had recurrent right pleural effusion requiring thoracentesis. He said he had run out of his medication for some time, and came into the emergency department and was found to be in congestive heart failure with pulmonary edema, and recurrent pleural effusions. The patient was admitted for further medical care. HOSPITAL COURSE: Mr. Stewart was admitted to the medical floor under tele monitoring. He was started on IV diuretic therapy, and thoracentesis was done. He felt better. We still thought that he could benefit a couple more days with IV diuretic therapy, but he was very adamant that he needed to be discharged because he has some business to take care of. He has been given a complete prescription for all of his medications, and he has been advised to be compliant with medications and with medical appointments. We also stressed about the need for a low-sodium diet. All the discharge instructions were discussed with Mr. Stewart, and he voiced understanding. TIME SPENT FOR DISCHARGE: 38 minutes. cc: MD Sanchez Isabel MD Ashish K. Basu, MD William D. Denney, MD
== END 2019-01-23 15:37 | disposition home health service (06) | DRG 291 ==
LOC: ED 18:41 → SUATTDRO 01-21 04:30 → EDIPHOLD 01-21 04:30 → 3N 01-21 11:46
PROVIDERS: ATTEND Internal Medicine
CPT/HCPCS: 32421; 32555; 71010; 71020; 71045; 71046; 71250; 80048; 80053; 82550; 82948; 83735; 83880; 84443; 84484; 85025; 85610; 85730; 93005; 93010; 94640; 96374; 99285; A9270; J1815; J1940; XXXXX

== ENCOUNTER 2019-04-16 13:30 | Inpatient (IN) ==
--- NOTE | 2019-04-16 13:41 | PROVIDER DOCUMENTATION ---
HPI-General Adult - General Chief Complaint: Extremity Pain Stated Complaint: LEFT FOOT PAIN Time Seen by Provider: 04/16/19 13:39 Source: patient Allergies/Adverse Reactions: Patient Allergies Allergy/AdvReac Type Severity Reaction Status Date / Time No Known Allergies Allergy Verified 04/16/19 15:45 Home Medications: Home Medication List Medication Instructions Recorded Confirmed Last Taken Type Divalproex E.r. [Depakote ER] 250 mg PO BID 01/21/19 01/21/19 Unknown History Ergocalciferol (Vitamin D2) 50,000 units PO Q7D 01/21/19 04/16/19 Unknown His tory [Vitamin D2] ATORVAstatin [Lipitor] 80 mg PO HS #120 tab 01/23/19 04/16/19 Unknown Rx Carvedilol [Coreg] 6.25 mg PO BID 120 Days #90 tab 01/23/19 04/16/19 Unknown Rx Colchicine [Colcrys] 0.3 mg PO DAILY #60 tab 01/23/19 04/16/19 Unknown Rx Folic Acid 1 mg PO DAILY #120 tab 01/23/19 04/16/19 Unknown Rx Furosemide 80 mg PO DAILY #90 tab 01/23/19 04/16/19 Unknown Rx Gabapentin 100 mg PO BID #60 cap 01/23/19 04/16/19 Unknown Rx Hydralazine [Apresoline] 25 mg PO BID #120 tab 01/23/19 04/16/19 Unknown Rx Iron Carbonyl/Ascorbic Acid 1 ea PO DAILY #60 tab 01/23/19 04/16/19 Unknown Rx [Icar-C] Isosorbide Mononitrate E.r. [Imdur] 20 mg PO TID #120 tab 01/23/19 04/16/19 Unknown Rx Polyethylene Glycol 3350 [Miralax] 17 gm PO BID #12 powder, packet 01/23/19 04/16/19 Unknown Rx Sacubitril/Valsartan [Entresto 24 1 ea PO BID #60 tab 01/23/19 04/16/19 Unknown Rx mg-26 mg Tablet] Tramadol [Ultram] 50 mg PO BID PRN PRN #20 tab 01/23/19 04/16/19 Unknown Rx - History of Present Illness -Gen Adult Nature of Presenting Problems: Pt. is 63 yom that presents with c/o left foot pain. He was sent in by his PCP for evaluation of possible gangrene to the left foot. Pt. does not want to be in the ED and is here reluctantly. Pt. denies any other complaint. Location of Pain/Injury: reports: feet (Left). denies: none, head, face, mouth, neck, chest, upper extremity, hand(s), abdomen, back, pelvis, genitalia, lower extremity, upper body, lower body, generalized, other Pain Radiation: reports: no radiation. denies: arm(s), back, buttocks, chest, epigastric, feet, groin, jaw, flank (L), legs (lower), LLQ, LUQ, neck, periumbilical, flank (R), RLQ, RUQ, shoulder(s), scapula, scrotal, sternal notch, suprapubic, legs (upper), urethral, vaginal, other Quality of Pain: reports: aching. denies: burning, cramping, pressure, stabbing, throbbing, tightness Severity: reports: moderate. denies: mild, severe Onset/Duration: reports: unsure, gradual Timing: reports: still present. denies: improving, intermittent, getting worse Context/Activities at Onset: reports: none. denies: light activity, moderate activity, vigorous activity, recent emotional stress, recent physical stress, recent trauma history, possible bad food, cold exposure, eating, out of country travel, rest, sleep, sexual activity, other Modifying Factors: improves with: nothing Associated Symptoms: reports: joint pain (Left foot). denies: denies symptoms, anxiety, arm pain, back/neck pain, chest pain, constipation, cough, diaphoresis, diarrhea, dizziness, EENT symptoms, fatigue, fever/chills, genitourinary problems, headaches, heartburn, loss of appetite, malaise, muscle aches, sinus congestion/drainage, nausea, rash, seizure, shortness of breath, sensory/motor loss, pain with inspiration, swelling/mass in abdomen, syncope, vomiting, weakness, trouble walking, other Similar Symptoms Previously?: Yes Recently seen or treated by another doctor?: Yes Review of Systems - Adult - REVIEW OF SYSTEMS - ADULT Constitutional: reports: no symptoms reported Eyes: reports: no symptoms reported Ears, Nose, Mouth & Throat: reports: no symptoms reported Cardiovascular: reports: no symptoms reported Respiratory: reports: no symptoms reported Gastrointestinal: reports: no symptoms reported Genitourinary: reports: no symptoms reported Musculoskeletal: reports: see HPI, joint pain (Left foot). denies: bone pain, frequent leg cramps, neck pain Integumentary: reports: see HPI, skin sores/ulcer (Left foot). denies: hair loss, itching, rash Neurological: reports: no symptoms reported Psychiatric: reports: no symptoms reported Past History - Adult - PAST MEDICAL HISTORY-ADULT Review of Records: reports: Old Records Reviewed, Nursing Assessment Review, Medications Reviewed, Social history reviewed & non-contributory. Major Childhood Illnesses: reports: denies history Cardiovascular: reports: CAD, CHF, HTN, hyperlipidemia Respiratory: reports: COPD Gastrointestinal: reports: denies history Obstetrical/Gynecological: reports: denies history Genitourinary: reports: denies history Musculoskeletal: reports: denies history Neurological: reports: CVA Endocrine/Immune: reports: Diabetes Other Conditions: reports: denies history - PRIOR SURGERIES/PROCEDURES Surgical/Procedure History: reports: appendectomy, CABG, cholecystectomy, cardiac stent - IMMUNIZATION STATUS Childhood Immunizations: See Nurse Assessment Flu Vaccine: See Nurse Assessment - FAMILY HISTORY Family History: reviewed, not pertinent - SOCIAL HISTORY Smoking: cigarettes, greater than 1 pack/day Provider spent 3-5 mins advising pt. on dangers of tobacco.: Discussed manners to quit use, and f/u contacts for add'l counseling. Physical Exam-General - PHYSICAL EXAM-ADULT Initial Vital Signs Reviewed: Yes - CONSTITUTIONAL General Appearance: alert, mild distress. negative: anxious, obtunded, combative - EYES Eyes: PERRL/EOMI, pink conjunctivae - HEAD, EARS, NOSE, MOUTH & THROAT HENMT: normocephalic/atraumatic, moist mucous membranes - NECK Neck: non-tender, full range of motion, supple, normal inspection - RESPIRATORY Respiratory: lungs clear, normal breath sounds - CARDIOVASCULAR Cardiovascular: normal peripheral pulses, regular rate, rhythm - GASTROINTESTINAL (ABDOMEN) Abdominal Exam: normal bowel sounds, non tender, soft - LYMPHATIC Lymphatic: no adenopathy - MUSCULOSKELETAL Back Exam: normal inspection, no CVA tenderness, no vertebral tenderness Extremity: swelling (Left foot), tenderness (Left foot), other (The left foot is mostly black with the left great toe moderately eroded away.). negative: deformity, erythema, inflammation Peripheral Pulses: radial (R): 2+, radial (L): 2+ - SKIN Integumentary: normal color, normal turgor, warm/dry - NEUROLOGIC Neurologic: grossly normal, no motor/sensory deficits - PSYCHIATRIC Psych/Mental Status: normal mood/affect, normal thought content, normal thought process, oriented x 3. negative: anxious, paranoid, tearful Progress - PLAN OF CARE/RESULTS Progress/Plan/Lab Results: Vital Signs - 8 hr 04/16/19 13:32 Temperature 98.2 F Pulse Rate 98 H Respiratory Rate 18 Blood Pressure 151/77 O2 Sat by Pulse Oximetry 97 Laboratory Tests 04/16/19 04/16/19 04/16/19 14:44 14:44 14:44 WBC 6.14 RBC 3.61 L Hgb 10.1 L Hct 32.6 L MCV 90.3 MCH 28.0 MCHC 31.0 L RDW Std Deviation 17.7 H Plt Count 140 MPV 12.0 H Immature Gran % (Auto) 0.3 Neut % (Auto) 70.0 Lymph % (Auto) 17.3 L [place] % (Auto) 11.9 H Eos % (Auto) 0.3 Baso % (Auto) 0.2 Immature Gran # (Auto) 0.02 Neut # (Auto) 4.30 Lymph # (Auto) 1.06 L [place] # (Auto) 0.73 H Eos # (Auto) 0.02 Baso # (Auto) 0.01 PT INR PTT (Actin FS) Sodium 144 Potassium 4.1 Chloride 106 Carbon Dioxide 28 Anion Gap 10 BUN 24 H Creatinine 2.2 H Estimated GFR/1.73 m2 37 BUN/Creatinine Ratio 11 Glucose 227 H Calculated Osmolality 298 Calcium 8.0 L Total Bilirubin 0.45 AST 10 ALT < 5 L Alkaline Phosphatase 186 H Creatine Kinase 141 Troponin T [id number] Pept > 67390 H Total Protein 6.3 Albumin 2.7 L Globulin 3.6 Albumin/Globulin Ratio 0.8 Urine Source Urine Color Urine Turbidity Urine pH Ur Specific [facility] Urine Protein Ur Glucose (Stick) Ur Ketones (Stick) Urine Blood Urine Nitrite Urine Bilirubin Urobilinogen Dipstick Urine Leukocytes Urine WBC (Auto) Urine RBC (Auto) U Epithel Cells (Auto) Urine Bacteria (Auto) 08/04/16/19 04/16/19 14:44 14:44 16:27 WBC RBC Hgb Hct MCV MCH MCHC RDW Std Deviation Plt Count MPV Immature Gran % (Auto) Neut % (Auto) Lymph % (Auto) [place] % (Auto) Eos % (Auto) Baso % (Auto) Immature Gran # (Auto) Neut # (Auto) Lymph # (Auto) [place] # (Auto) Eos # (Auto) Baso # (Auto) PT 15.9 INR 1.25 PTT (Actin FS) 45.7 H Sodium Potassium Chloride Carbon Dioxide Anion Gap BUN Creatinine Estimated GFR/1.73 m2 BUN/Creatinine Ratio Glucose Calculated Osmolality Calcium Total Bilirubin AST ALT Alkaline Phosphatase Creatine Kinase Troponin T 0.037 [id number] Pept Total Protein Albumin Globulin Albumin/Globulin Ratio Urine Source CLEAN CATCH Urine Color YELLOW Urine Turbidity CLEAR Urine pH 6.0 Ur Specific [facility] 1.008 Urine Protein 100 A Ur Glucose (Stick) NEGATIVE Ur Ketones (Stick) NEGATIVE Urine Blood TRACE A Urine Nitrite NEGATIVE Urine Bilirubin NEGATIVE Urobilinogen Dipstick NORMAL Urine Leukocytes NEGATIVE Urine WBC (Auto) <10 Urine RBC (Auto) <10 U Epithel Cells (Auto) <10 Urine Bacteria (Auto) NEGATIVE Discussed results and plan of care with patient. Patient agrees with plan and verbalizes understanding. Result Diagrams: 04/16/19 14:44 04/16/19 14:44 - XRAY 1 XRAY: Left XRAY Study: Foot [facility] - [address] , [address] [place], [place] [id number] [place] [address] [address] [place] [address] Department of Imaging Patient: AUDREY CLAY Date: 04/16/19MR#: [id number] : 1955DM Status: REG [facility]#: [id number] Age/Sex: 63/MRoom/Bed: Loc: ED Ordering Physician: Joseline Pereira Family Physician: Sanchez Mcdonald MD Reason for Procedure: infection Signed EXAM: FOOT COMPLETE LEFT 04/16/2019 HISTORY: infection TECHNIQUE: Left foot three views COMMENT: There is vascular calcification. There is erosion of the distal tuft of the great toe. This was also the case at the time the previous study of 10/18/2018. IMPRESSION: Erosion of the distal phalanx of the great toe which may indicate osteomyelitis. Electronically signed by Chan Abdi 04/16/2019 2:11 PM 04/16/19 1411 Interpreting Physician: Chan Abdi MD Dictated Date/Time: 04/16/19 1402 cc: Joseline Pereira; Sanchez Mcdonald MD) XRAY Interpretation: See note 2 XRAY Study: Chest ([facility] - [address] [place], [place] [id number] [place] [address] - [address] [place] [address] Department of Imaging Patient: AUDREY CLAY Date: 04/16/19#: [id number] : 1955DM Status: [facility]#: [id number] Age/Sex: 63/MRoom/Bed: Loc: ED Ordering Physician: Joseline Pereira Family Physician: Sanchez Mcdonald MD Reason for Procedure: wheezing Signed EXAM: CHEST-PORTABLE 04/16/2019 HISTORY: wheezing TECHNIQUE: AP portable semiupright chest at 1400 COMMENT: There is a pleural effusion on the right which may be loculated. There is left ventricular enlargement. There is ill- defined opacity in the right base which was also present at the time the previous study of 01/22/2019. The inspiration is actually less optimal but this may be slightly improved considering the degree of inspiration. IMPRESSION: Right pleural effusion and/or pleural thickening. Atelectasis versus pneumonia in the right upper, middle and lower lobes. Cardiomegaly. Electronically sign ed by Chan Abdi 04/16/2019 2:12 PM 04/16/19 1412 Interpreting Physician: Chan Abdi MD Dictated Date/Time: 04/16/19 1411 cc: Joseline Pereira; Sanchez Mcdonald MD) XRAY Interpretation: See note - CONSULTS/PCP/HOSPITALIST Notification #1 *Consult/PCP/Hospitalist*: Beth for Dr. Funk Time Discussed: 17:06 Reason/Comments: Admission Consult Disposition: Will see in ED, Admit Departure - Departure Date of Disposition Decision: 04/16/19 Time of Disposition Decision: 17:06 DIAGNOSIS: Renal insufficiency, Hyperglycemia due to type 1 diabetes mellitus Osteomyelitis Qualifiers: Osteomyelitis type: unspecified type Osteomyelitis location: foot Laterality: left Qualified Code(s): M86.9 - Osteomyelitis, unspecified Disposition: ADMITTED INPATIENT 09 Certified Medical Emergency: Emergent Condition: Stable Referrals and Follow-Ups: Sanchez Mcdonald MD [Primary Care Provider] - - Critical Care Note This patient required my direct & personal management of CC.: No Attestation - Physician/ EUGENIO Attestation Patient care was provided by Advanced Practice Provider:: Yes Advanced Practice Provider:: Joseline Pereira Advanced Practice Provider documentation review:: The Mid-level provider documentation, treatment plan and medical decision making was reviewed by the physician who agrees with all treatment and medical decision making by the MLP. The physician spent face to face time with patient:: No Advanced Practice Provider documentation review:: Supervising physician onsite and consulted in the evaluation and care of this patient. The physician did not have a face to face encounter with the patient.
--- NOTE | 2019-04-16 14:13 | Diag Imaging Result Doc PS360 ---
EXAM: FOOT COMPLETE LEFT 04/16/2019 HISTORY: infection TECHNIQUE: Left foot three views COMMENT: There is vascular calcification. There is erosion of the distal tuft of the great toe. This was also the case at the time the previous study of 10/18/2018. IMPRESSION: Erosion of the distal phalanx of the great toe which may indicate osteomyelitis. Electronically signed by Chan Abdi 04/16/2019 2:11 PM
--- NOTE | 2019-04-16 14:15 | Diag Imaging Result Doc PS360 ---
EXAM: CHEST-PORTABLE 04/16/2019 HISTORY: wheezing TECHNIQUE: AP portable semiupright chest at 1400 COMMENT: There is a pleural effusion on the right which may be loculated. There is left ventricular enlargement. There is ill-defined opacity in the right base which was also present at the time the previous study of 01/22/2019. The inspiration is actually less optimal but this may be slightly improved considering the degree of inspiration. IMPRESSION: Right pleural effusion and/or pleural thickening. Atelectasis versus pneumonia in the right upper, middle and lower lobes. Cardiomegaly. Electronically signed by Chan Abdi 04/16/2019 2:12 PM
[2019-04-16 15:36] LABS: BASO# 0.01 X1000 (0.0-0.2); BASO% 0.2 % (0.0-0.8); EOS# 0.02 X1000 (0.0-0.7); EOS% 0.3 % (0.0-10.0); HEMATOCRIT 32.6 % (42.0-52.0); HEMOGLOBIN 10.1 g/dL (14.0-18.0); IMM GRAN# 0.02 X1000 (0.0-0.04); IMM GRAN% 0.3 % (0.0-0.5); LYMPH# 1.06 X1000 (1.2-3.4); LYMPH% 17.3 % (20.5-51.1); MCV 90.3 FL (81-99); MONO# 0.73 X1000 (0.11-0.59); MONO% 11.9 % (1.7-9.3); PLT 140 X1000 (130-400); RBC 3.61 XMIL (4.7-6.1); RDW 17.7 % (11.5-14.5); WBC 6.14 X1000 (4.8-10.8)
[2019-04-16 15:43] LABS: INR 1.25; PROTIME 15.9 Seconds (11.0-16.0)
[2019-04-16 15:44] LABS: PTT 45.7 Seconds (22.3-41.8)
--- NOTE | 2019-04-16 16:10 | ED EKG INTERP ---
This chart was entered by Laura Lanier Scribe, acting as scribe for Liam Spence MD. EKG Interpretation - EKG Time of EKG reading by physician:: 15:59 EKG Read and Signed by:: Liam Spence EKG Interpretation (*Must complete 3 of following elements*): Abnormal (T wave abnormality, consider lateral ischemia) Rate: 67 Rhythm: sinus rhythm with marked sinus arrhythmia [place]: normal [place] Interval: normal Comments: inferior infarct, age undetermined; Attestation - Physician/ EUGENIO Attestation Patient care was provided by Advanced Practice Provider:: Yes Advanced Practice Provider:: Joseline Pereira Advanced Practice Provider documentation review:: The Mid-level provider documentation, treatment plan and medical decision making was reviewed by the physician who agrees with all treatment and medical decision making by the MLP. The physician spent face to face time with patient:: No Advanced Practice Provider documentation review:: Supervising physician onsite and consulted in the evaluation and care of this patient. The physician did not have a face to face encounter with the patient. This chart was documented by the indicated scribe, (Laura Lanier Scribe) and accurately reflects the services I performed and decisions made by me, Liam Spence MD, as attested by the provider's signature.
--- NOTE | 2019-04-16 16:16 | EKG Report ---
Test Performed on : 04/16/2019 3:59:39 PM Test Reason : admit Blood Pressure : / mmHG Vent. Rate : 067 BPM Atrial Rate : 067 BPM P-R Int : 128 ms QRS Dur : 112 ms QT Int : 440 ms P-R-T Axes : 019 -29 169 degrees QTc Int : 464 ms Sinus rhythm. with marked sinus arrhythmia. Inferior infarct , age undetermined T wave abnormality, consider lateral ischemia Abnormal ECG When compared with ECG of 22-JAN-2019 07:09, No significant change was found Unconfirmed Result
[2019-04-16 16:26] LABS: AGAP 10; ALB/GLOB RATIO 0.8; ALBUMIN 2.7 g/dL (3.5-5.0); ALKALINE PHOSPHATASE 186 U/L (32-122); BUN 24 mg/dL (8-22); CHLORIDE 106 mmol/L (98-107); CK PROFILE 141 U/L (24-204); COSMO 298; CREATININE 2.2 mg/dL (0.7-1.2); ESTIMATED GFR 37; GLUCOSE 227 mg/dL (70-104); GOT 10 U/L (10-34); GPT < 5 U/L (10-44); POTASSIUM 4.1 mmol/L (3.5-5.1); SODIUM 144 mmol/L (136-145); TCO2 28 mmol/L (25-35); TOTAL BILIRUBIN 0.45 mg/dL (0.20-1.00); TOTAL PROTEIN 6.3 g/dL (6.3-8.3)
[2019-04-16 16:42] LABS: URINE SOURCE CLEAN CATCH
[2019-04-16 16:48] LABS: BILIRUBIN URINE NEGATIVE (NEGATIVE); BLOOD URINE TRACE (NEGATIVE); COLOR YELLOW; GLUCOSE URINE NEGATIVE (NEGATIVE); KETONE URINE NEGATIVE (NEGATIVE); LEUKOCYTES URINE NEGATIVE (NEGATIVE); NITRITE URINE NEGATIVE (NEGATIVE); PROTEIN URINE 100 mg/dL (NEGATIVE); SP GRAVITY URINE 1.008; TURBIDITY URINE CLEAR (CLEAR); UROBILINOGEN URINE NORMAL (NORMAL)
[2019-04-16 16:50] LABS: UR EPITHELIAL CELLS <10 /HPF (<10); URINE BACTERIA NEGATIVE /HPF; URINE RBC <10 /HPF (<10); URINE WBC <10 /HPF (<10)
[2019-04-16] MEDS ORDERED: ROCEPHIN 1 GM in NS 50 ML IV ONE (17:03)
[2019-04-16] MEDS ORDERED: ZOFRAN IV PRN (19:09)
[2019-04-16] MEDS ORDERED: ULTRAM PO PRN (19:09)
[2019-04-16] MEDS ORDERED: DUONEB (A & A) INH PRN (19:09)
--- NOTE | 2019-04-16 19:22 | HISTORY AND PHYSICAL ---
PRIMARY CARE PROVIDER: Sanchez Mcdonald MD CHIEF COMPLAINT: Left foot pain. HISTORY OF PRESENT ILLNESS: Mr. Stewart is a 63-year-old male who carries an extensive past medical history for medical noncompliance; severe ischemic cardiomyopathy with systolic congestive heart failure, with an EF of 20% to 25%; severe coronary artery disease; hypertension; hyperlipidemia; type 2 diabetes; history of cocaine abuse; recurrent right pleural effusion that has required thoracentesis; gout; folic acid deficiency; constipation; COPD; chronic kidney disease stage 3. He reported to the ED with left foot pain. Workup in the ED showed erosion of the distal phalanx of the great toe, which may indicate osteomyelitis. His chest x-ray indicated a right pleural effusion and/or pleural thickening, atelectasis versus pneumonia in the right upper, middle and lower lobes, and cardiomegaly. He has a chronically elevated proBNP, greater than 35,000 since the beginning of the year. He does not appear to be any respiratory distress. His white count is normal. His creatinine appears to be at his baseline. We will admit him and start him on broad-spectrum antibiotics with Zyvox and cefepime, as well as consult Orthopedics, Wound Care and Infectious Disease. PAST MEDICAL HISTORY: As per HPI. PAST SURGICAL HISTORY: 1. Multiple thoracenteses. 2. Coronary stenting on multiple occasions. 3. Right foot surgery. SOCIAL HISTORY: He quit smoking in 2018. Prior to that he smoked a pack per day. History of cocaine abuse in the past, but no current illicit drug use. No alcohol. FAMILY HISTORY: Positive for coronary artery disease. ALLERGIES: No known drug allergies. HOME MEDICATIONS: Please see MAR. They have not all been reconciled. REVIEW OF SYSTEMS: Twelve-point review of systems completed and negative except for those mentioned in HPI. The patient denies any headache, fever, chills, chest pain, shortness of breath, nausea, vomiting or diarrhea. His main complaint was his left foot pain. PHYSICAL EXAMINATION: VITAL SIGNS: Temperature is 98.2 degrees, heart rate 98, respirations 18, blood pressure 151/77, O2 is 97% on room air. GENERAL: Mr. Stewart is a 63-year-old male who is sitting up on the stretcher in no acute distress. He is not requiring any supplemental O2. HEENT: Atraumatic, normocephalic. PERRL. NECK: Supple. Trachea midline. Mild JVD noted. Trachea midline. CARDIOVASCULAR: S1, S2 appreciated. No murmurs, gallops or rubs noted. He does have what appears to be chronically edematous lower extremities. LUNGS: He is decreased in the right base, with some mild crepitations, no rhonchi, no wheezes. ABDOMEN: Soft, nontender, nondistended. He did complain of some right upper quadrant tenderness with palpation. EXTREMITIES: No clubbing, no cyanosis. He does have what appears to be a left infected toe. It is dry on the top. It does appear to have a whitish appearance to the bottom of the great toe; however, I did not appreciate any oozing or malodor coming from that area. NEUROLOGIC: He is awake, alert and oriented. He does follow commands. He does answer questions; however, he does appear to repeat himself. I am not sure if there is a component of dementia that has not been diagnosed. DIAGNOSTIC DATA: Chest x-ray: Right pleural effusion and/or pleural thickening, atelectasis versus pneumonia in the right upper, middle and lower lobes. Left foot x-ray: Erosion of the distal phalanx of the great toe, which may indicate osteomyelitis. EKG: Sinus rhythm with a marked sinus arrhythmia at 67 beats per minute. LABORATORY DATA: White count 6, hemoglobin and hematocrit 10 and 32, platelet count is 140,000. Sodium 144, potassium 4.1, BUN 24, creatinine 2.2, blood glucose is 227. ProBNP was greater than 35,000. ASSESSMENT AND PLAN: 1. Left great toe with probable osteomyelitis. We will initiate on Zyvox and cefepime. We will consult Orthopedics, Infectious Disease and Wound care, and provide him with p.r.n. morphine for any pain. 2. Severe ischemic cardiomyopathy with systolic congestive heart failure, with an ejection fraction of 20% to 25%. He does appear to have chronic lower extremity edema. He does not appear to be in any acute fluid volume overload; however, he has had a proBNP that has been greater than 35,000 since August. He reports he has been taking his diuretics. 3. Diabetes mellitus type 2. Appears to be uncontrolled. We will continue with pattern blood sugars and sliding scale. 4. Recurrent right pleural effusions that have required thoracenteses in the past. He does sound decreased in the right base. We will continue to monitor. 5. Questionable upper, middle and right lower lobe pneumonia versus atelectasis. We will continue treatment with intravenous antibiotics to cover; however, he does not report any fever, chills or productive cough. 6. Chronic kidney disease stage 3. He appears to be at his baseline. 7. Hypertension. We will continue home medications. 8. Hyperlipidemia. We will continue Lipitor. 9. History of medical noncompliance and history of cocaine abuse. 10. Chronic obstructive pulmonary disease without exacerbation. 11. Constipation. We will continue MiraLAX. 12. Further recommendations to follow physician evaluation, laboratory and diagnostic data. Dictated by CLAY Riley for Becka Segovia MD cc: MD Sanchez Espinoza MD Leroy F. Harris, MD Dr. Real I performed a face to face encounter on the patient. I reviewed all labs and imaging on the patient. I agree with the H&P as dictated. MTDD
[2019-04-16] MEDS ORDERED: ZYVOX 600 MG/D5W 600 MG/300 ML IVPB IV SCH (20:00)
[2019-04-16] MEDS: MAXIPIME 1 GM in NS 50 ML IV SCH ×2 (21:46→21:48)
[2019-04-16] MEDS: MIRALAX PO SCH (21:47)
[2019-04-16] MEDS: LIPITOR PO SCH (21:47)
[2019-04-16] MEDS: HUMALOG SUBQ SCH ×2 (21:47→21:56)
[2019-04-16] MEDS: APRESOLINE PO SCH (21:47)
[2019-04-16] MEDS: HEPARIN SUBQ SCH (21:47)
[2019-04-16] MEDS: ENTRESTO 24 MG-26 MG TABLET PO SCH (21:47)
[2019-04-16] MEDS: COREG PO SCH (21:47)
[2019-04-16] MEDS: NEURONTIN PO SCH (21:47)
[2019-04-17] MEDS: HEPARIN SUBQ SCH ×3 (05:57→21:08)
[2019-04-17] MEDS: HUMALOG SUBQ SCH ×4 (06:03→21:08)
--- NOTE | 2019-04-17 06:37 | Diag Imaging Result Doc PS360 ---
CHEST-PORTABLE - 04/17/2019 INDICATION: follow up ? pna COMPARISON: 04/16/2019 FINDINGS: Stable cardiomegaly and pulmonary vascular congestion. There is a moderate right basilar pleural effusion, increase since prior. No dense consolidations. IMPRESSION: Enlarging moderate right basilar pleural effusion. Electronically signed by Power Peralta 04/17/2019 6:35 AM
[2019-04-17 06:39] LABS: BASO# 0.01 X1000 (0.0-0.2); BASO% 0.2 % (0.0-0.8); EOS# 0.05 X1000 (0.0-0.7); HEMATOCRIT 30.7 % (42.0-52.0); HEMOGLOBIN 9.3 g/dL (14.0-18.0); LYMPH# 1.34 X1000 (1.2-3.4); LYMPH% 26.9 % (20.5-51.1); MCH 27.1 PG (27-31); MCHC 30.3 g/dL (33-37); MCV 89.5 FL (81-99); MONO# 0.72 X1000 (0.11-0.59); MONO% 14.4 % (1.7-9.3); MPV 12.3 FL (7.4-10.4); NEUT# 2.87 X1000 (1.4-6.5); NEUT% 57.5 % (42.2-75.2); PLT 148 X1000 (130-400); RBC 3.43 XMIL (4.7-6.1); RDW 17.8 % (11.5-14.5); WBC 4.99 X1000 (4.8-10.8)
--- NOTE | 2019-04-17 07:00 | EKG Report ---
Test Performed on : 04/17/2019 06:26:42 AM Test Reason : chest pain Blood Pressure : / mmHG Vent. Rate : 064 BPM Atrial Rate : 064 BPM P-R Int : 114 ms QRS Dur : 110 ms QT Int : 432 ms P-R-T Axes : 008 -18 207 degrees QTc Int : 445 ms Normal sinus rhythm. T wave abnormality, consider lateral ischemia Abnormal ECG When compared with ECG of 16-APR-2019 15:59, (Unconfirmed) No significant change was found Confirmed by Mateo Klein MD ([id number]) on 04/20/2019 8:32:25 AM
[2019-04-17 07:01] LABS: ALB/GLOB RATIO 0.7; ALBUMIN 2.4 g/dL (3.5-5.0); CALCIUM 8.5 mg/dL (8.8-10.2); MAGNESIUM 1.9 mg/dL (1.5-2.7); POTASSIUM 3.9 mmol/L (3.5-5.1); TOTAL BILIRUBIN 0.38 mg/dL (0.20-1.00)
[2019-04-17] MEDS ORDERED: IMDUR PO SCH (09:00)
[2019-04-17] MEDS: MAXIPIME 1 GM in NS 50 ML IV SCH ×2 (09:45→21:07)
[2019-04-17] MEDS: COLCRYS PO SCH (09:46)
[2019-04-17] MEDS: ICAR-C PO SCH (09:46)
[2019-04-17] MEDS: COREG PO SCH ×2 (09:47→21:08)
[2019-04-17] MEDS: APRESOLINE PO SCH ×2 (09:47→21:08)
[2019-04-17] MEDS: FOLIC ACID PO SCH (09:47)
[2019-04-17] MEDS: NEURONTIN PO SCH ×2 (09:47→21:08)
[2019-04-17] MEDS: ENTRESTO 24 MG-26 MG TABLET PO SCH ×2 (09:47→21:08)
[2019-04-17] MEDS: ISORDIL PO SCH ×3 (09:47→17:10)
[2019-04-17] MEDS: ZYVOX PO SCH ×3 (09:48→21:08)
[2019-04-17] MEDS: MIRALAX PO SCH ×2 (09:52→21:08)
--- NOTE | 2019-04-17 10:25 | ORTHOPAEDICS CONSULTATION ---
DATE: 04/17/2019 HISTORY OF PRESENT ILLNESS: Mr. Stewart is a 63-year-old male. He presented to the emergency department with foot pain. He was admitted per the medicine service and orthopedics was consulted for a wound on his great toe on this left side. PAST MEDICAL HISTORY: Severe ischemic cardiomyopathy with congestive heart failure. Coronary artery disease, hypertension, hyperlipidemia, type 2 diabetes, history of cocaine abuse, COPD and chronic kidney disease. PAST SURGICAL HISTORY: Thoracentesis, coronary stenting and he has had a right foot surgery in the past. SOCIAL HISTORY: Says he quit smoking about 2018. FAMILY HISTORY: Positive for heart problems. ALLERGIES: No known drug allergies. HOME MEDICATIONS: Per the medical record. REVIEW OF SYSTEMS: Positive for left foot pain. PHYSICAL EXAMINATION: General: Mr. Stewart is lying in bed this morning. Complains of pain in his left foot. He is in no acute distress. Head and Neck: Normocephalic, atraumatic. Respirations: Nonlabored breathing. Cardiovascular: Regular pulse. Abdomen: Nondistended. Extremities: Left lower extremity exam: Looking at the great toe he does have a lot of necrotic looking tissue to the toe and it is woody be as well. There is not a lot of drainage there. He does have tenderness to palpation to the great toe. RADIOGRAPHS: Radiographs show some erosion of the distal phalanx of the great toe. ASSESSMENT: Left great toe dry gangrene with osteomyelitis. PLAN: I discussed with Mr. Stewart about his great toe. Unfortunately I think it is dying. What I would like to do is get an MRI to better evaluate the extent of his osteomyelitis. More than likely he will require an amputation of the great toe. He is high risk for surgery given his comorbidities. We will order the MRI and then I will make a final decision after that. cc: Delfino Erwin MD
--- NOTE | 2019-04-17 10:28 | Diag Imaging Result Doc PS360 ---
EXAM: MRI LOWER EXT JT W/O CON-LEFT 04/17/2019 HISTORY: possible osteomylitis left foot TECHNIQUE: Short axis proton density and T1, long axis water T1 and in phase T1, sagittal STIR, short axis TI fat sat, short axis STIR. COMMENT: There is no evidence of bone marrow edema in the great toe. There is some increased STIR signal intensity present in the proximal portion of the first metatarsal of uncertain significance. This was also seen in the base of the second and fifth metatarsals. There are apparent degenerative changes in the first metatarsophalangeal joint. There is erosion in the distal phalanx of the great toe which does not appear to be associated with marrow changes to suggest osteomyelitis. There is extensive subcutaneous edema particularly over the dorsum of the foot. IMPRESSION: No evidence of osteomyelitis. Electronically signed by Chan Abdi 04/17/2019 10:25 AM
--- NOTE | 2019-04-17 10:53 | INFECTIOUS DISEASE CONSULT REP ---
DATE: 04/17/2019 CONCLUSION: The patient is admitted to the hospital with infection primarily in his left great toe. On x-ray, there are signs to suggest that the patient has osteomyelitis of the great toe. The patient may have decreased arterial perfusion of his legs. One x-ray says that it is possible the patient has pneumonia. The other x-ray showed that it was pulmonary venous congestion and not pneumonia. I think that the patient does not have pneumonia and that the infiltrates seen on the chest x-ray are due to pulmonary venous congestion. In any event, I am also going to order a procalcitonin level to help differentiate between pneumonia and pulmonary venous congestion. RECOMMENDATIONS: I agree with treating the patient with Zyvox and cefepime. I have discontinued tramadol because it can interact with Zyvox, and I have also put that the patient should not have tramadol ordered as long as he is on Zyvox. An MRI has already been ordered of the patient's left foot, and I have ordered arterial studies of both legs. DISCUSSION: The patient was somewhat of a vague historian. He says that he in the past 4 to 5 weeks has developed progressive pain and swelling in his left foot, especially the left great toe. He has not had any fever or chills. He thinks he injured his left great toe when he had the toe hit a solid object. DIAGNOSTIC STUDIES: His current studies the show a CBC with a white count of 4990, hemoglobin 9.3, and platelet count 148,000. Creatinine is 2, GFR is 41, alkaline phosphatase is 170. Urinalysis did not show any white cells or bacteria. Blood cultures are pending. Chest x-ray shows cardiomegaly and pulmonary venous congestion. I doubt that pneumonia is present. X-ray of the left foot showed left great toe erosion compatible with osteomyelitis. An MRI is pending. I have taken a culture from the left great toe. PREVIOUS HOSPITALIZATIONS AND OPERATIONS: He has had stents placed in his coronary arteries. He has also had an appendectomy. MEDICAL DISEASES: Positive for diabetes mellitus, hypertension, coronary artery disease, gout, and hyperlipidemia. INFECTIOUS DISEASE HISTORY: Positive for pneumonia negative for UTI. FAMILY HISTORY: Positive for diabetes mellitus and hypertension. SOCIAL HISTORY: [place] He is . He has a dog as a pet. He stopped smoking 3 months ago. He does not abuse drugs or drink alcoholic beverages. HOME MEDICATIONS: Home medications include Lipitor, Coreg, colchicine, Depakote, furosemide, gabapentin, Isordil, Entresto, and tramadol. PHYSICAL EXAMINATION: Vital Signs: Temperature is 98.2 degrees, pulse 63, respirations 20, blood pressure is 152/67. Weight: The patient weighs 195 pounds. General: This is a somewhat ill- appearing, middle-aged male. He is in no acute distress. Head, Eyes, Ears, Nose, and Throat: He can hear my spoken words and see near objects. There is no drainage from his nose or ears. He does not have any white patches on his tongue. Neck: No meningismus. Lungs: Clear to auscultation. Cardiovascular: Heart rate is regular. Extremities: Both legs are edematous. The left great toe has dry necrotic tissues medially. It has purulent drainage with a foul odor. Abdomen: Soft and nontender. Neurologic: The patient is awake. He is able to ambulate, but it is difficult for me because his left toe hurts him a lot. There is no tremor. His memory as regarding his medical history is decreased. Integument: No rash noted. Thank you for the consult. cc: Jeffery Platt MD
[2019-04-17] MEDS: PERCOCET-5 PO PRN (10:59)
--- NOTE | 2019-04-17 13:08 | PROGRESS NOTE ---
DATE: 04/17/2019 SUBJECTIVE: The patient is sitting up eating breakfast. He complains of pain in his foot. OBJECTIVE: Vitals: Temperature 98.2 degrees, blood pressure 152/67, heart rate 63, respirations 20, O2 saturation 96% on room air. General: This is a chronically ill- appearing elderly male lying in bed in no acute distress. Heart: S1, S2 normal. Regular rate and rhythm. Lungs: Clear to auscultation bilaterally. Abdomen: Positive bowel sounds. Soft, nontender, nondistended. Extremities: Trace pedal edema. The patient has dry gangrene involving the left great toe. Neurologic: The patient is alert and oriented x3. LABORATORY DATA: White blood cell count 4.9, hemoglobin 9.3, hematocrit 30, platelets 148,000. Sodium 141, potassium 3.9, chloride 107, CO2 25, BUN 23, creatinine 2, glucose 123, calcium 8.5, magnesium 1.9, AST 11, ALT 6, alkaline phosphatase 107. ASSESSMENT AND PLAN: 1. Left great toe dry gangrene with possible osteomyelitis. Continue with antibiotic therapy as directed by Dr. Platt. Orthopedic Surgery is also following. 2. Chronic kidney disease stage 3. Stable. 3. Suspected peripheral arterial disease. The patient had arterial studies done on his legs today. Will await the results. 4. Hypertension. Continue on the current antihypertensive regimen. 5. History of gout. Continue on Colcrys. 6. Diabetes mellitus type 2. Continue with sliding scale insulin. 7. Chronic systolic congestive heart failure. Continue on Entresto and Coreg. 8. Constipation. Will start the patient on scheduled laxative therapy. 9. Deep vein thrombosis prophylaxis. Continue on heparin. cc: Becka Segovia MD MTDD
[2019-04-17] MEDS: LIPITOR PO SCH (21:08)
[2019-04-18] MEDS: HUMALOG SUBQ SCH ×4 (06:24→23:27)
[2019-04-18] MEDS: HEPARIN SUBQ SCH ×3 (06:27→23:24)
[2019-04-18 07:14] LABS: HEMATOCRIT 31.4 % (42.0-52.0); HEMOGLOBIN 9.5 g/dL (14.0-18.0); MCH 27.5 PG (27-31); MCHC 30.3 g/dL (33-37); MPV 12.3 FL (7.4-10.4); RBC 3.45 XMIL (4.7-6.1); RDW 17.9 % (11.5-14.5); WBC 5.39 X1000 (4.8-10.8)
[2019-04-18 07:34] LABS: CALCIUM 8.4 mg/dL (8.8-10.2); POTASSIUM 3.8 mmol/L (3.5-5.1)
[2019-04-18] MEDS: NEURONTIN PO SCH ×2 (08:41→23:23)
[2019-04-18] MEDS: FOLIC ACID PO SCH (08:41)
[2019-04-18] MEDS: ISORDIL PO SCH ×3 (08:41→19:04)
[2019-04-18] MEDS: ICAR-C PO SCH (08:41)
[2019-04-18] MEDS: COLCRYS PO SCH (08:41)
[2019-04-18] MEDS: ENTRESTO 24 MG-26 MG TABLET PO SCH ×2 (08:41→23:24)
[2019-04-18] MEDS: APRESOLINE PO SCH ×2 (08:41→23:23)
[2019-04-18] MEDS: COREG PO SCH ×2 (08:42→23:24)
[2019-04-18] MEDS: ZYVOX PO SCH ×2 (08:42→23:24)
[2019-04-18] MEDS: MAXIPIME 1 GM in NS 50 ML IV SCH ×2 (08:42→23:25)
[2019-04-18] MEDS: PERCOCET-5 PO PRN ×2 (08:51→15:57)
[2019-04-18] MEDS: MIRALAX PO SCH ×2 (12:11→23:26)
--- NOTE | 2019-04-18 16:50 | PROGRESS NOTE ---
DATE: 04/18/2019 SUBJECTIVE: The patient is sitting up eating his lunch. He states that his pain medication is controlling the pain in his foot. OBJECTIVE: Vital Signs: Temperature 98.6 degrees, blood pressure 135/66, heart rate 69, respirations 16, O2 saturation 97% on room air. General: This is a chronically ill-appearing elderly male sitting at the edge of the bed in no acute distress. Heart: S1, S2 normal. Regular rate and rhythm. Lungs: Equal air entry bilaterally. No wheezing, no rales, no rhonchi. Abdomen: Positive bowel sounds. Soft, nontender, nondistended. Extremities: The patient has dry growing gangrene involving the left great toe. Neuro: The patient is alert and oriented x4. LABS: Sodium 141, potassium 3.8, chloride 107, CO2 29, BUN 24, creatinine 2, glucose 71. ASSESSMENT AND PLAN: 1. Left great toe dry gangrene with possible osteomyelitis. Continue with antibiotic therapy. The wound culture is growing gram-negative rods. 2. Chronic systolic congestive heart failure. Continue on Entresto and Coreg. 3. Diabetes mellitus type 2. Continue on sliding scale insulin. 4. History of gout. Continue on Colcrys. 5. Hypertension. Stable. Continue on the current antihypertensive regimen. 6. Constipation. Will adjust the laxative regimen. 7. Deep vein thrombosis prophylaxis. Continue on heparin. cc: Becka Segovia MD
[2019-04-18] MEDS: LIPITOR PO SCH (23:23)
[2019-04-18] MEDS: LACTULOSE PO SCH (23:59)
[2019-04-18] MEDS: SENOKOT PO SCH (23:59)
[2019-04-19 05:52] LABS: HEMATOCRIT 30.3 % (42.0-52.0); HEMOGLOBIN 9.2 g/dL (14.0-18.0); MCH 27.7 PG (27-31); MCHC 30.4 g/dL (33-37); MCV 91.3 FL (81-99); MPV 11.5 FL (7.4-10.4); RBC 3.32 XMIL (4.7-6.1); RDW 17.7 % (11.5-14.5); WBC 5.75 X1000 (4.8-10.8)
[2019-04-19 06:41] LABS: CALCIUM 8.1 mg/dL (8.8-10.2); CREATININE 2.2 mg/dL (0.7-1.2)
[2019-04-19] MEDS: HUMALOG SUBQ SCH ×2 (06:56→11:03)
[2019-04-19] MEDS: HEPARIN SUBQ SCH ×3 (06:57→22:00)
[2019-04-19] MEDS: ZYVOX PO SCH ×2 (10:53→22:00)
[2019-04-19] MEDS: ICAR-C PO SCH (10:54)
[2019-04-19] MEDS: FOLIC ACID PO SCH (10:54)
[2019-04-19] MEDS: ISORDIL PO SCH ×3 (10:54→18:12)
[2019-04-19] MEDS: COREG PO SCH ×2 (10:54→22:00)
[2019-04-19] MEDS: COLCRYS PO SCH (10:55)
[2019-04-19] MEDS: MORPHINE IV PRN (10:57)
[2019-04-19] MEDS: MIRALAX PO SCH ×2 (11:04→21:59)
[2019-04-19] MEDS: LACTULOSE PO SCH ×2 (11:04→21:58)
[2019-04-19] MEDS: MAXIPIME 1 GM in NS 50 ML IV SCH ×2 (11:06→21:59)
[2019-04-19] MEDS: APRESOLINE PO SCH ×2 (11:06→22:01)
[2019-04-19] MEDS: ENTRESTO 24 MG-26 MG TABLET PO SCH ×2 (11:07→22:15)
[2019-04-19] MEDS: SENOKOT PO SCH ×2 (11:07→21:59)
[2019-04-19] MEDS: NEURONTIN PO SCH ×2 (11:07→22:01)
[2019-04-19] MEDS: PERCOCET-5 PO PRN ×2 (12:13→16:16)
--- NOTE | 2019-04-19 14:12 | PROGRESS NOTE ---
DATE: 04/19/2019 SUBJECTIVE: The patient is resting comfortably. He has no complaints at this time. He has not had a bowel movement yet. OBJECTIVE: Vital Signs: Temperature 98.2 degrees, blood pressure 146/73, heart rate 73, respirations 18, O2 saturation 98% on room air. General: This is a chronically ill-appearing, elderly male, lying in bed in no acute distress. Heart: S1, S2 normal. Regular rate and rhythm. Lungs: Equal air entry bilaterally. No wheezing. No rales. Abdomen: Positive bowel sounds. Soft, nontender, nondistended. Extremities: No edema. No cyanosis. No calf tenderness. Neurologic: The patient is alert and oriented x3. LABORATORY DATA: Reviewed. ASSESSMENT AND PLAN: 1. Left great toe gangrene. The culture is growing Providencia. Continue with antibiotic therapy as directed by Dr. Platt. 2. Chronic kidney disease stage 3. Stable. 3. Chronic systolic congestive heart failure. Continue on the current cardiac medications. 4. Diabetes mellitus type 2. Continue on sliding scale insulin. 5. History of gout. Continue on Colcrys. 6. Constipation. Continue with laxative therapy. 7. Deep vein thrombosis prophylaxis. Continue on heparin. cc: Becka Segovia MD
[2019-04-19] MEDS: HUMULIN R SUBQ SCH ×2 (16:19→22:00)
[2019-04-19] MEDS: LIPITOR PO SCH (22:00)
[2019-04-20 05:47] LABS: HEMATOCRIT 29.5 % (42.0-52.0); HEMOGLOBIN 8.8 g/dL (14.0-18.0); MCH 27.6 PG (27-31); MCHC 29.8 g/dL (33-37); MCV 92.5 FL (81-99); MPV 11.6 FL (7.4-10.4); RBC 3.19 XMIL (4.7-6.1); WBC 5.2 X1000 (4.8-10.8)
[2019-04-20 05:57] LABS: HEMOGLOBIN A1C 7.3 % (4.8-6.0)
[2019-04-20 06:14] LABS: POTASSIUM 4.2 mmol/L (3.5-5.1)
--- NOTE | 2019-04-20 06:56 | ORTHOPAEDICS PROGRESS NOTE ---
DATE: 04/20/2019 SUBJECTIVE: Mr. Stewart is lying in bed this morning. Pain seems controlled. OBJECTIVE: Left lower extremity: Skin around that great toe does not look great. It feels like eschar all through there, and he has lost a lot of the soft tissue. There is just a little bit of drainage there, but not much. There is not really any swelling at all. IMAGING: MRI was reviewed, which shows no osteomyelitis. ASSESSMENT: Left great toe necrosis. PLAN: I discussed with Mr. Stewart about this toe. I am not sure what may have caused his necrosis. It may end up being a vascular tissue, so I am going to discuss with the primary team today about getting some vascular studies to see, if we do a great toe amputation, would he be able to heal it, and also I will talk with the primary team about risk factors for surgical intervention. I know he has a lot of medical comorbidities that we will have to work through as well. He understands this. More than likely, he will require at least a great toe amputation, but if he does not have good blood flow, we may end up having to make that level of amputation higher. cc: Delfino Erwin MD
[2019-04-20] MEDS: HUMULIN R SUBQ SCH ×4 (07:10→23:22)
[2019-04-20] MEDS: HEPARIN SUBQ SCH ×3 (08:06→21:15)
--- NOTE | 2019-04-20 08:47 | VASCULAR LAB ---
STUDY: Bilateral lower extremity segmental Doppler. DATE: 04/17/2019 INDICATION: History of arterial disease with dry gangrene of the great toe. FINDINGS: Brachial on the right is 164, left 148. High thigh on the right is noncompressible, on the left 112. Low thigh on the right is noncompressible, left 103. Calf on the right is 93, left 90. DP on the right is 114, on the left 76. PT on the right is 109, on the left 65. Toe pressure on the right is 67, on the left 20. TRACI on the right 0.70, left 0.46. Toe pressure on the right is 0.41, on the left 0.12. SUMMARY: In the right lower extremity there is a depressed TRACI at 0.70, which would correlate to a moderate degree of atherosclerotic changes. There is blunting of the wave forms throughout with noncompressibility proximally and a steep transition at the level of the popliteal artery. This would suggest diffuse atherosclerotic changes with a more focal lesion at the popliteal or distal SFA. On the left, there is more severe blunting and depression of the TRACI at 0.46, suggesting diffuse atherosclerotic changes. Toe wave forms were obtained, and on the right there was blunting of the toe wave forms in each location and near flatline of the toe wave form at the 5th toe. In the left, the great toe shows flat wave forms with very significantly blunted wave forms and flat wave form at the 5th. The wave forms at 2, 3 and 4 are near flatlines. IMPRESSION: Significant atherosclerotic changes in the bilateral lower extremities, worse on the left, with flatline wave forms noted at several locations of the bilateral toes. Would recommend correlation with angiography as clinically indicated. cc: MD Jeffery Reinoso MD
[2019-04-20] MEDS: ZYVOX PO SCH (09:33)
[2019-04-20] MEDS: NEURONTIN PO SCH ×2 (09:33→21:15)
[2019-04-20] MEDS: COREG PO SCH ×2 (09:34→21:15)
[2019-04-20] MEDS: APRESOLINE PO SCH ×2 (09:34→21:15)
[2019-04-20] MEDS: FOLIC ACID PO SCH (09:34)
[2019-04-20] MEDS: ENTRESTO 24 MG-26 MG TABLET PO SCH ×2 (09:34→21:23)
[2019-04-20] MEDS: ICAR-C PO SCH (09:34)
[2019-04-20] MEDS: COLCRYS PO SCH (09:34)
[2019-04-20] MEDS: MAXIPIME 1 GM in NS 50 ML IV SCH (09:35)
[2019-04-20] MEDS: COLACE PO SCH (09:42)
[2019-04-20] MEDS: SENOKOT PO SCH ×2 (09:42→21:15)
[2019-04-20] MEDS: DULCOLAX PR SCH (09:43)
[2019-04-20] MEDS: MIRALAX PO SCH ×2 (09:43→21:36)
[2019-04-20] MEDS: LACTULOSE PO SCH ×2 (09:43→21:35)
[2019-04-20] MEDS: ISORDIL PO SCH ×2 (09:43→18:50)
--- NOTE | 2019-04-20 10:06 | Diag Imaging Result Doc PS360 ---
EXAM: ABDOMEN FLAT/UPRIGHT HISTORY: constipation TECHNIQUE: Flat and upright, two views COMPARISON: None. FINDINGS: There is a right pleural effusion with basilar atelectasis. No bowel obstruction. No foreign body. Moderate atherosclerosis. Mild arthritis to each hip. IMPRESSION: No significant constipation. Electronically signed by Juan Henderson 04/20/2019 10:04 AM
[2019-04-20] MEDS ORDERED: NS 500 ML ONE (10:15)
[2019-04-20] MEDS: LEVAQUIN PO SCH (15:17)
--- NOTE | 2019-04-20 17:35 | PROGRESS NOTE ---
DATE: 04/20/2019 SUBJECTIVE: The patient is sitting comfortably in bed. He has no complaints. OBJECTIVE: Vital Signs: Temperature 97.9 degrees, blood pressure 153/67, heart rate 69, respirations 16, and O2 saturation 95% on room air. General: This is a chronically ill-appearing elderly male sitting in bed in no acute distress. Heart: S1, S2 normal. Regular rate and rhythm. Lungs: Clear to auscultation bilaterally. No wheezing. No rales. Abdomen: Positive bowel sounds. Soft, nontender, and nondistended. Extremities: The patient has dry gangrene involving the left great toe. Neurologic: The patient is alert and oriented x4. LABORATORY: White blood cell count of 5.2, hemoglobin 8.8, hematocrit 29, and platelets 159,000. Sodium 143, potassium 4.2, chloride 109, CO2 26, BUN 24, creatinine 2, and glucose 134. ASSESSMENT AND PLAN: 1. Left great toe necrosis with gangrene. The patient has severe peripheral arterial disease. Continue with antibiotic therapy. General Surgery has been consulted for further evaluation. 2. Chronic kidney disease stage 3. Stable. We will avoid nephrotoxic agents. 3. Chronic systolic congestive heart failure. Continue on the current heart failure medications. 4. Insulin-dependent diabetes mellitus. Continue with insulin therapy. 5. History of gout. Continue on Colcrys. 6. Severe peripheral arterial disease. Aware. We will await recommendations from the general surgeon. 7. Deep vein thrombosis prophylaxis. Continue on heparin. cc: Becka Segovia MD MTDD
--- NOTE | 2019-04-20 17:53 | INFECTIOUS DISEASE PROGRESS NO ---
DATE: 04/20/2019 PRESENT ILLNESS: The patient has Providencia osteomyelitis of the left great toe. The patient also has an associated bacteremia with Providencia which came from the patient's infected toe. On Gram stain, gram-positive cocci were seen in the blood culture but they did not grow. MEDICATIONS: Currently the patient is on a combination of cefepime and Zyvox. PHYSICAL EXAMINATION: Vital Signs: Temperature is 97.8 degrees, pulse 79, respirations 16, blood pressure is 164/69. General: This is an obese, middle-aged male. He is in no acute distress. Head, eyes, ears, nose, and throat: He can hear my spoken words and see near objects. He does not have any white patches in his mouth. Neck: No pain with movement of the neck. Lungs: Clear to auscultation. Cardiovascular: Heart rate is regular. Abdomen: Soft and nontender. Extremities: Both legs are edematous. The left great toe is necrotic and it medially has a wound which has purulent drainage with a foul odor. Neurologic: Patient is alert. He can move his extremities. There is no tremor. LAB AND X-RAY: The patient had a vascular study done of both legs and it showed significant atherosclerotic changes. The patient's great toe and blood grew Providencia and as mentioned above, the blood culture also had on Gram stain a gram-positive cocci in it but it did not grow. The patient's creatinine is 2. The GFR is 41. CBC shows a white count of 5,200, hemoglobin 8.8, and platelet count 159,000. The patient had an MRI of the foot. It did not show osteomyelitis. However, there was no contrast given. An x-ray of the foot did show findings of osteomyelitis, namely erosion of the distal phalanx of the patient's great toe. ASSESSMENT AND PLAN: The patient has an infection of his foot. There is necrosis. There is, I believe, osteomyelitis and there is an associated bacteremia. My plan is to switch the patient from cefepime and Zyvox to p.o. Levaquin. Some of the side effects of the antibiotic, including rash, diarrhea, seizures, and tendon rupture have been explained to the patient who agrees with treatment. Dr. Erwin has been consulted and he will decide what, if any surgery needs to be done to the patient's foot. COMORBIDITIES: He has atherosclerosis. He is a diabetic. The patient stopped smoking 3 months ago but before that, had smoked quite a bit. cc: Jeffery Platt MD
--- NOTE | 2019-04-20 18:08 | GENERAL SURGERY CONSULTATION ---
DATE: 04/20/2019 REASON FOR CONSULTATION: Gangrenous necrosis in the left 1st toe with peripheral vascular disease. HISTORY: The patient is a 63-year-old gentleman who has multiple medical issues. He came in with discoloration and pain in the left first toe. He has had symptoms consistent with claudication several months. Dr. Erwin was initially consulted and noninvasive arterial studies were obtained which confirmed peripheral vascular disease. MEDICAL HISTORY: 1. Congestive heart failure, coronary disease, including PCI and chronic kidney disease. 2. Peripheral vascular disease. 3. Diabetes. SURGICAL HISTORY: He has had PCIs, but no other peripheral vascular surgery. SOCIAL HISTORY: He does smoke. Denies any alcohol or other drugs. FAMILY HISTORY: Reviewed noncontributory. REVIEW OF SYSTEMS: Ten point review of systems negative other than hpi PHYSICAL EXAMINATION: Vital Signs: He is afebrile, pulse 69, blood pressure 153/67, oxygen saturation is 95%. General: He is alert. HEENT: No scleral icterus. No cervical mass. Cardiovascular: Normal rate. Pulmonary: No increased work of breathing. Abdomen: Soft. Integument: Warm, dry. Psychiatric: Appropriate affect. Neurologic: No gross deficits. Musculoskeletal Exam: Exam shows dry necrosis left first toe. No purulence. No cellulitis. Peripheral vascular, pedal pulse not palpable. Lower popliteal and femoral pulses are not clearly palpable. LABORATORY DATA: White count 5. Creatinine is 2.0, this is near his baseline. Glucose 130s. His AGUSTIN's show that his TRACI on the left is 0.46 and 0.7 on the right. ASSESSMENT AND PLAN: A 63-year-old gentleman with dry necrosis of the left first toe. He also has severe peripheral vascular disease with TRACI of 0.4. Recommend Betadine paint to the toe as wound care and he needs an investigation for possible peripheral vascular intervention. We do need to obtain a CT angiogram with runoff, although given his chronic kidney disease, I would recommend renal protection prior to this with Mucomyst and bicarbonate solution. We will follow along for these results. cc: Elke Blandon MD [facility]ish[facility]
[2019-04-20] MEDS: PERCOCET-5 PO PRN (21:12)
[2019-04-20] MEDS: LIPITOR PO SCH (21:15)
[2019-04-20] MEDS: MORPHINE IV PRN (21:23)
[2019-04-21] MEDS: PERCOCET-5 PO PRN ×2 (02:02→21:22)
[2019-04-21] MEDS: MORPHINE IV PRN ×2 (02:03→05:41)
[2019-04-21 05:43] LABS: HEMATOCRIT 29.2 % (42.0-52.0); HEMOGLOBIN 8.9 g/dL (14.0-18.0); MCH 28.1 PG (27-31); MCHC 30.5 g/dL (33-37); MCV 92.1 FL (81-99); MPV 11.3 FL (7.4-10.4); RBC 3.17 XMIL (4.7-6.1); RDW 17.9 % (11.5-14.5); WBC 5.58 X1000 (4.8-10.8)
[2019-04-21] MEDS: HEPARIN SUBQ SCH ×3 (05:45→21:23)
[2019-04-21 06:02] LABS: CALCIUM 7.9 mg/dL (8.8-10.2); CREATININE 1.9 mg/dL (0.7-1.2); POTASSIUM 4.1 mmol/L (3.5-5.1)
[2019-04-21] MEDS: HUMULIN R SUBQ SCH ×4 (06:55→21:23)
[2019-04-21] MEDS: NEURONTIN PO SCH ×2 (09:02→21:23)
[2019-04-21] MEDS: COLCRYS PO SCH (09:02)
[2019-04-21] MEDS: APRESOLINE PO SCH ×2 (09:02→21:23)
[2019-04-21] MEDS: ENTRESTO 24 MG-26 MG TABLET PO SCH ×2 (09:02→21:23)
[2019-04-21] MEDS: ICAR-C PO SCH (09:02)
[2019-04-21] MEDS: LACTULOSE PO SCH ×2 (09:03→21:24)
[2019-04-21] MEDS: MIRALAX PO SCH ×2 (09:03→21:24)
[2019-04-21] MEDS: LEVAQUIN PO SCH (09:03)
[2019-04-21] MEDS: COREG PO SCH ×2 (09:03→21:22)
[2019-04-21] MEDS: ISORDIL PO SCH ×3 (09:04→16:25)
[2019-04-21] MEDS: SENOKOT PO SCH ×2 (09:04→21:22)
[2019-04-21] MEDS: DULCOLAX PR SCH (09:05)
[2019-04-21] MEDS: FOLIC ACID PO SCH (09:05)
[2019-04-21] MEDS: COLACE PO SCH (09:05)
[2019-04-21] MEDS ORDERED: MUCOMYST 20% PO SCH (13:00)
[2019-04-21] MEDS ORDERED: SODIUM BICARBONATE 8.4% 100 MEQ in STERILE WATER INJ. 1,000 ML IV SCH (13:00)
--- NOTE | 2019-04-21 13:05 | PROGRESS NOTE ---
DATE: 04/21/2019 SUBJECTIVE: The patient is resting comfortably in bed. He complains of pain in his left great toe. OBJECTIVE: Vital Signs: Temperature 97.9 degrees, blood pressure 145/71, heart rate 64, respirations 18, O2 saturations 100% on room air. General: This is an elderly male lying in bed, in no acute distress. Heart: S1, S2 normal. Regular rate and rhythm. Lungs: Clear to auscultation bilaterally. No wheezing. No rales. No rhonchi. Abdomen: Positive bowel sounds. Soft, nontender, nondistended. Extremities: The patient has dry gangrene involving the left great toe with necrosis between the left great toe and the 2nd toe on the left. Neurologic: The patient is alert and oriented x4. LABORATORY DATA: White blood cell count 5.5, hemoglobin 8.9, hematocrit 29, platelets 142,000. Sodium 144, potassium 4.1, chloride 111, CO2 23, BUN 25, creatinine 1.9, glucose 112. ASSESSMENT AND PLAN: 1. Left great toe necrosis with gangrene in the setting of severe peripheral arterial disease. The patient will likely undergo a CT angiogram to delineate the vessels that are occluded. We will continue with antibiotic therapy. Further management as per the general surgeon. 2. Chronic kidney disease stage 3. Stable. Will consult nephrology to follow since a CT angio with runoff is planned. 3. Chronic systolic congestive heart failure. Continue on the current heart failure medications. 4. Insulin dependent diabetes mellitus. Continue on insulin therapy. 5. History of gout. Continue on Colcrys. 6. Severe CAD with EF 30%. Continue with the current cardiac medications. 7. Hypertension. Stable. Continue on the current antihypertensive regimen. 8. Deep vein thrombosis prophylaxis. Continue on heparin. cc: Becka Segovia MD MTDD
--- NOTE | 2019-04-21 17:53 | NEPHROLOGY CONSULTATION ---
DATE: 04/21/2019 REASON FOR CONSULTATION: Assistance with management. HISTORY OF PRESENT ILLNESS: Mr. Stewart is a 63-year-old man who is known to us. He was last seen during hospitalization early this year when he had decompensated heart failure as well as chronic kidney disease with proteinuria. His last LVEF was 15 to 20 percent by echocardiogram in August of this year. He had global hypokinesis and RV filling pressure 47 and severe left atrial enlargement. He has been in stage 2 to stage 3 heart failure essentially since that time. He has been admitted several times this year and was admitted on this occasion because of dry gangrene in his left foot associated with pain and impaired functional status. He is eating well. He has shortness of breath with exertion. He is able lie flat. In this context, he has known chronic kidney disease with baseline creatinine of approximately 1.9. His creatinine was 2.2 on presentation and 1.9 today. Highest creatinine this year was 4.2 in the context of aggressive diuresis. We are asked to see him because he has planned aortogram with runoff to evaluate his peripheral vascular disease. PAST MEDICAL HISTORY: 1. Chronic kidney disease stage 4 with proteinuria. 2. Coronary artery disease. 3. Peripheral vascular disease. 4. Dilated cardiomyopathy secondary to ischemic heart disease. HOME MEDICATIONS: Include ergocalciferol, atorvastatin, MiraLAX, hydralazine, colchicine, carvedilol, Entresto, furosemide, gabapentin, iron carbonyl, isosorbide, tramadol, folate. ALLERGIES: None. SOCIAL HISTORY: He is . He has kids and grand kids with him he is involved. Former smoker. FAMILY HISTORY: Otherwise noncontributory. REVIEW OF SYSTEMS: Otherwise noncontributory. PHYSICAL EXAMINATION: Vital Signs: Blood pressure 145/71, heart rate 64, respiration 18, afebrile. General: Chronically-ill man, lying in bed. No distress. Skin: Warm and dry. HEENT: Conjunctivae are pink. Pupils are equal. Oropharynx is clear. Normal tongue. Neck: Supple. Trachea is midline. Neck vein distention is present. PMI is difficult to palpate. Regular rate and rhythm with gallop and murmur. Lungs: Have equal breath sounds. Few crackles. Abdomen: Soft, distended, nontender. Bowel sounds present. Extremities: With 3+ edema pitting up on to the ribcage. Dry gangrene of the left great toe. Neurologic: Nonfocal. IMPRESSION: 1. Chronic kidney disease stage 4. Estimated GFR 44 but I think this is an over estimate. He has chronic decompensated heart failure but no significant change from baseline. I do not think more fluids will be helpful in mitigating his acute interstitial nephritis risk. I would estimate his risk of acute interstitial nephritis at approximately 25% though his risk of requiring renal replacement therapy much lower around 5%. I have reviewed his medications and none of them need to be discontinued prior to his procedure. No Mucomyst. We will follow with you. I have discussed the case directly with Drs. Segovia and Barber. cc: Baron Lemon MD [facility]
--- NOTE | 2019-04-21 18:16 | GENERAL SURGERY PROGRESS NOTE ---
DATE: 04/21/2019 SUBJECTIVE: Overall doing about the same. He does have some discomfort in his left foot. No fevers. No tachycardia. OBJECTIVE: He has stable dry necrosis of left first toe. Foot is otherwise warm. LABORATORY: White count 5, hematocrit 29. Creatinine is 1.9; he is at his baseline. Glucose has been in the low 100s. ASSESSMENT AND PLAN: A 63-year-old gentleman with multiple medical issues, congestive heart failure, chronic renal insufficiency, extensive peripheral vascular disease. I spoke with Dr. Lemon. He thinks he is tending towards volume overload at this juncture and advised against any further IV fluids and he is also agreeable with pursuing with CT angiography, although he is at risk for acute worsening of his renal function. Will discuss in more clear detail with the patient to ensure that he wants to pursue, but I do think he needs contrasted imaging to guide further management and potential limb salvage. In meantime, continue Betadine paint. I do not see any evidence of infected necrosis here. cc: Elke Blandon MD [facility]
[2019-04-21] MEDS: LIPITOR PO SCH (21:23)
[2019-04-22 05:39] LABS: HEMATOCRIT 30.5 % (42.0-52.0); HEMOGLOBIN 9.2 g/dL (14.0-18.0); MCH 27.7 PG (27-31); MCHC 30.2 g/dL (33-37); MCV 91.9 FL (81-99); MPV 11.5 FL (7.4-10.4); RBC 3.32 XMIL (4.7-6.1); RDW 17.9 % (11.5-14.5); WBC 5.43 X1000 (4.8-10.8)
[2019-04-22 06:01] LABS: CALCIUM 8.2 mg/dL (8.8-10.2); POTASSIUM 4.2 mmol/L (3.5-5.1)
[2019-04-22] MEDS: HEPARIN SUBQ SCH ×3 (06:12→20:52)
[2019-04-22] MEDS: PERCOCET-5 PO PRN ×3 (06:17→20:52)
[2019-04-22] MEDS: HUMULIN R SUBQ SCH ×4 (06:41→21:00)
[2019-04-22] MEDS: ICAR-C PO SCH (10:26)
[2019-04-22] MEDS: ENTRESTO 24 MG-26 MG TABLET PO SCH ×2 (10:26→20:53)
[2019-04-22] MEDS: FOLIC ACID PO SCH (10:26)
[2019-04-22] MEDS: NEURONTIN PO SCH ×2 (10:28→20:52)
[2019-04-22] MEDS: APRESOLINE PO SCH ×2 (10:28→20:54)
[2019-04-22] MEDS: LEVAQUIN PO SCH (10:28)
[2019-04-22] MEDS: COREG PO SCH ×2 (10:28→20:54)
[2019-04-22] MEDS: COLCRYS PO SCH (10:28)
[2019-04-22] MEDS: ISORDIL PO SCH ×3 (10:28→20:58)
[2019-04-22] MEDS: COLACE PO SCH (10:30)
[2019-04-22] MEDS: LACTULOSE PO SCH ×2 (10:30→20:54)
[2019-04-22] MEDS: MIRALAX PO SCH ×2 (10:30→20:55)
[2019-04-22] MEDS: DULCOLAX PR SCH (10:30)
[2019-04-22] MEDS: SENOKOT PO SCH ×2 (12:51→20:53)
--- NOTE | 2019-04-22 15:06 | NEPHROLOGY PROGRESS NOTE ---
DATE: 04/22/2019 SUBJECTIVE: Patient resting in bed. No complaints overnight. OBJECTIVE: Vital Signs: Temperature 97.6 degrees, pulse 76, respiratory rate 16, blood pressure 132/59. Intake 774 mL, output 800 mL. General: This is middle-aged gentleman resting in bed, awake and alert, in no acute distress. HEENT: Normocephalic, atraumatic. Oral mucosa moist. Neck: Supple. Trace JVD. Cardiovascular: Regular rate and rhythm with a gallop and systolic murmur. Pulmonary: Clear bilaterally. There are no rales or crackles today. Abdomen: Soft. Positive bowel sounds. : Not inspected. Extremities: He has 3+ pitting edema up to the rib cage. Dry gangrene noted to the left foot, primarily great toe. Integumentary: Skin is warm and dry otherwise. LAB DATA: WBC of 5.4, hemoglobin 9.2. Sodium 142, potassium 4.2, CO2 23, creatinine 2. ASSESSMENT/PLAN: Chronic kidney disease stage 4. The patient's renal function is stable over the last 24 hours. Patient has chronic decompensated heart failure and chronic issues with fluid volume management. From a renal perspective, we would not initiate fluid volume expansion in the setting of to utilize contrast. Continue to follow along. Patient does not have indication for intervention otherwise at this time. Dictated by CLAY Waldron for Baron Lemon MD Face to face encounter, data reviewed, discussed with Pradeep Kiran on 04/22/19. I agree with the above assessment and plan of care. cc: Baron Lemon MD [facility]
--- NOTE | 2019-04-22 15:23 | PROGRESS NOTE ---
DATE: 04/22/2019 SUBJECTIVE: The patient is resting comfortably in bed. He has no complaints at this time. OBJECTIVE: Vital Signs: Temperature 97.8 degrees, blood pressure 148/80, heart rate 90, respirations 18, O2 saturations 97% on room air, intake 774, output 800. General: This is a chronically ill-appearing elderly male sitting up in bed in no acute distress. Heart: S1, S2 normal. Regular rate and rhythm. Lungs: Clear to auscultation bilaterally. No wheezing. No rales. No rhonchi. Abdomen: Positive bowel sounds. Soft, nontender, nondistended. Extremities: The patient has dry gangrene involving the left great toe. Trace pedal edema. Neurologic: The patient is alert and oriented x4. LABS: Reviewed. ASSESSMENT AND PLAN: 1. Left great toe dry gangrene in the setting of severe peripheral arterial disease. CTA with runoff is scheduled for tomorrow. Continue with antibiotic therapy. 2. Chronic kidney disease stage 3. Stable. Nephrology is following. 3. Chronic systolic congestive heart failure. Stable. Continue on the current heart failure medications. 4. History of gout. Continue on Colcrys. 5. Insulin dependent diabetes mellitus. Continue on sliding scale insulin. 6. Severe coronary artery disease with an ejection fraction of 30%. Continue on the current cardiac medications. 7. Hypertension. Stable. 8. Deep vein thrombosis prophylaxis. Continue on heparin. cc: Becka Segovia MD [facility]
--- NOTE | 2019-04-22 17:42 | INFECTIOUS DISEASE PROGRESS NO ---
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 Gram-positive cocci were seen in blood culture, but they did not grow. MEDICATIONS: The patient is on Levaquin as a single agent. PHYSICAL EXAMINATION: Vital Signs: Temperature is 98 degrees, pulse 70, respirations 16, blood pressure 150/70. General: This is an obese, middle-aged male. He is in no acute distress. Head/eyes/ears/nose/throat: He can hear my spoken words and see near objects. He does not have any white coating on his tongue. Neck: No pain with movement. Lungs: Clear to auscultation. Cardiovascular: Heart rate is regular. Abdomen: Soft and nontender. Extremities: The patient's left great toe for the most part is dry necrosis, but at the base there is some purulent drainage which has a foul odor. Neurologic: Patient is alert. He can move his extremities. There is no tremor. LAB AND X-RAY: There is no new x-ray. The patient's lab shows a CBC with a white count of 5430, hemoglobin 9.2, and platelet count 137,000. Creatinine is 2. GFR is 41. ASSESSMENT AND PLAN: I plan on continuing to treat the patient with p.o. Levaquin. The patient tomorrow is going to be going down for a study to determine how good the blood supply is to the patient's toe, which will determine what if any procedures can be performed on the foot. COMORBIDITIES: The patient has atherosclerosis. He is a diabetic. The patient stopped smoking 3 months ago but before that smoked quite a bit. cc: Jeffery Platt MD
[2019-04-22] MEDS: LIPITOR PO SCH (20:53)
--- NOTE | 2019-04-22 21:26 | GENERAL SURGERY PROGRESS NOTE ---
DATE: 04/22/2019 SUBJECTIVE: No events overnight. OBJECTIVE: He is afebrile. No tachycardia. Betadine dressings to the left foot are going well. I reviewed his labs. His creatinine today is back to 2. ASSESSMENT AND PLAN: This is a 61-year-old gentleman with congestive heart failure teetering on volume overload, with peripheral vascular disease and necrosis of the left 1st toe. I have discussed with Dr. Lemon and the patient, and the patient agreed to proceed with angiography, although the risk of acute kidney injury or even without recovery was discussed with the patient. Dr. Lemon feels as though from volume status, he does not have any room for further hydration, so we will order a CT angiography to guide further care with hopes of limb salvage. cc: Elke Blandon MD
[2019-04-23] MEDS: PERCOCET-5 PO PRN ×5 (01:51→22:55)
[2019-04-23] MEDS: HEPARIN SUBQ SCH ×3 (05:17→22:30)
[2019-04-23 06:13] LABS: HEMATOCRIT 27.6 % (42.0-52.0); HEMOGLOBIN 8.4 g/dL (14.0-18.0); MCH 28.1 PG (27-31); MCHC 30.4 g/dL (33-37); MCV 92.3 FL (81-99); MPV 12.2 FL (7.4-10.4); RBC 2.99 XMIL (4.7-6.1); WBC 4.84 X1000 (4.8-10.8)
[2019-04-23 06:27] LABS: CREATININE 1.8 mg/dL (0.7-1.2)
--- NOTE | 2019-04-23 07:28 | NEPHROLOGY PROGRESS NOTE ---
DATE: 04/23/2019 SUBJECTIVE: Patient is resting in bed. No events overnight. OBJECTIVE: Vital Signs: Temperature 98.4 degrees, pulse 77, respiratory rate 16, blood pressure 146/64. Intake 1.4 L. Output voided 750 mL measured. He has had a couple of incontinent voids that were not measured. Physical Examination: General: Middle-aged gentleman resting in bed. He does not appear in any distress. HEENT: Normocephalic, atraumatic. LYNDA. Neck: Supple with trace JVD in a reclined position. Cardiovascular: Regular rate and rhythm with a systolic murmur and a gallop. Pulmonary: He is clear bilaterally. He has equal excursion. He remains on O2 supplementation via nasal cannula. Abdomen: Soft, with positive bowel sounds. : Voiding. Extremities: There is 3+ pitting edema up to the ribcage. Continues with dry gangrene to the left foot, primarily the great toe. His other integumentary is warm and dry. Lab Data: WBC of 4.8, hemoglobin 8.4. Sodium 140, potassium 4.0, CO2 of 22, creatinine 1.8. ASSESSMENT AND PLAN: 1. Chronic kidney disease stage 4. Renal function remains stable at his historical baseline. No changes to current plan. 2. Dry gangrene, peripheral vascular disease, necrosis of the left great toe. The patient is to have a CT angiogram today. Followed by surgery. Dictated by CLAY Waldron for Baron Lemon MD Face to face encounter, data reviewed, discussed with Pradeep Kiran on 04/23/19. I agree with the above assessment and plan of care. cc: Baron Lemon MD [facility]
[2019-04-23] MEDS: HUMULIN R SUBQ SCH ×4 (07:41→22:30)
[2019-04-23] MEDS: ENTRESTO 24 MG-26 MG TABLET PO SCH ×2 (09:11→22:30)
[2019-04-23] MEDS: ISORDIL PO SCH ×4 (09:11→22:30)
[2019-04-23] MEDS: COLCRYS PO SCH (09:11)
[2019-04-23] MEDS: APRESOLINE PO SCH ×2 (09:11→22:30)
[2019-04-23] MEDS: NEURONTIN PO SCH ×2 (09:11→22:30)
[2019-04-23] MEDS: LEVAQUIN PO SCH (09:12)
[2019-04-23] MEDS: COREG PO SCH ×2 (09:12→22:30)
[2019-04-23] MEDS: FOLIC ACID PO SCH (09:12)
[2019-04-23] MEDS: ICAR-C PO SCH (09:12)
[2019-04-23] MEDS: COLACE PO SCH (09:15)
[2019-04-23] MEDS: SENOKOT PO SCH ×2 (09:16→22:30)
[2019-04-23] MEDS: MIRALAX PO SCH ×2 (09:16→22:50)
[2019-04-23] MEDS: DULCOLAX PR SCH (10:10)
[2019-04-23] MEDS: LACTULOSE PO SCH ×2 (10:10→22:30)
--- NOTE | 2019-04-23 10:50 | Diag Imaging Result Doc PS360 ---
EXAM: CT ANGIOGRAM AORTA W/RUNOFF HISTORY: pvd; left 1st toe necrosis TECHNIQUE: CT angiogram aorta with runoff in the lower extremities. Arteriogram protocol with MIP images. COMPARISON: None. FINDINGS: There is a moderate to large right-sided pleural effusion measuring 6.3 cm posteriorly and inferiorly in the midline. Smaller left pleural effusion measuring 11 mm. There are infiltrates and atelectasis in the right lung. The heart is enlarged. The gallbladder has been removed. No focal hepatic abnormality. Spleen is not enlarged. Normal pancreas and adrenal glands. There are bilateral renal calcifications. It is difficult to tell if these are our vascular or nonobstructing stones. No bowel obstruction. Small amount of abdominal and pelvic ascites. The urinary bladder is distended and is normal. The prostate is not enlarged. Small right inguinal hernia. There is body wall edema. No aortic aneurysm. Noncalcified plaque takeoff of the celiac and superior mesenteric arteries with mild narrowing. There are two right renal arteries. Narrowing of between 50 and 70%. Approximately 50% narrowing in the proximal left renal artery. Small inferior mesenteric artery. Right: Mild narrowing in the common iliac artery of less than 40%. Normal flow in the external iliac artery and common femoral artery. Multiple narrowed segments in the upper mid superficial femoral artery approaching 50%. There is flow in a distal graft. Narrowing in the proximal popliteal artery approaching 70%. Narrowing distally of at least 50%. Occluded anterior posterior tibial artery superiorly. Peroneal artery continues to the ankle. Left: Mild narrowing in the common iliac artery of between 40 and 50%. Normal external iliac artery. Normal common femoral artery. There is complete occlusion in the superficial femoral artery. Reconstitution distally in the abductor canal. Multiple popliteal stenoses approaching 70%. There is a three vessel trifurcation, but with occlusion of the anterior posterior tibial arteries. Peroneal artery continues to the ankle. IMPRESSION: 1.Occluded left superficial femoral artery 2.Occluded bilateral anterior and posterior tibial arteries 3.Body wall edema with cardiomegaly, bilateral pleural effusions, and ascites This exam was performed using automated exposure control, adjustment of mA or kV according to patient size, and/or use of iterative reconstruction technique. Electronically signed by Juan Henderson 04/23/2019 10:47 AM
--- NOTE | 2019-04-23 16:15 | PROGRESS NOTE ---
DATE: 04/23/2019 SUBJECTIVE: This morning Mr. Stewart refers to be doing fairly okay. Still has some residual shortness of breath and pain in the left big toe. OBJECTIVELY: Vitals: Blood pressure is 148/64, pulse of 72, respiration is 20, temperature 98.2 degrees.General: Mr. Stewart is a 63-year-old gentleman who was sitting at the edge of the bed. He was not in any distress. HEENT: Mucosa is pink and moist. Anicteric. Acyanotic. Neck: Supple. There is positive JVD. Chest: Air entry is bilaterally reduced. A few crackles in the posterior lung rawls. Cardiovascular: Tachycardic. No murmurs, no rubs, no gallops. Abdomen: Soft, it is distended globally, but nontender. Bowel sounds present. Extremities: About 3+ pedal edema. The left big toe is very necrotic, no exudation, but there is a foul smell. IMAGING: There aortic runoff which was done this morning shows occluded left superficial femoral artery. There is also occluded bilateral anterior and posterior tibial arteries. There is body edema with cardiomegaly, bilateral pleural effusions and ascites. The patient I then those urine output was about 750. The patient consumes 75% of his lunch. LABORATORY DATA: Has also been reviewed. The patient is borderline normocytic anemia. Chemistry reveals a creatinine of 1.8. His this. ASSESSMENT: 1. Left great toe dry gangrene with culture positive of Providencia rettgeri. The patient is on antimicrobial therapy (Levaquin). Infectious disease is on board. 2. Severe bilateral peripheral artery disease, worse on the left with the superior femoral artery total occlusion. The patient is pending surgery evaluation. 3. Anasarca secondary to congestive heart failure. 4. Chronic kidney disease stage 3A to 4. Nephrology is on board. There is anticipation of worsening of this because of contrast. The patient might ultimately end up on hemodialysis. 5. Severe coronary artery disease with dilated ischemic cardiomyopathy. Ejection fraction of to 20 percent on recent echocardiogram. 6. Hypertension. PLAN: So in general I think Mr. Stewart is fairly stable. Still has a lot of congestive symptoms. His aortic runoff is pretty remarkable for bilateral distal artery occlusions. There is also okay occluded left superior femoral artery with pending vascular surgery evaluation and then go from there. cc: Sanjay Cronin MD
--- NOTE | 2019-04-23 20:52 | GENERAL SURGERY PROGRESS NOTE ---
DATE: 04/23/2019 SUBJECTIVE: He is sleeping this afternoon. No family is available. ASSESSMENT AND PLAN: I have reviewed his CT angiogram. He has an superficial femoral artery occlusion on the left with single-vessel runoff. I reviewed these findings. I think he would benefit from a femoral to above-knee popliteal bypass. We will discuss in more detail over the next day or 2 with the family and the patient, but for limb salvage I think this is going to be the next step. We will work on coordinating this. From a surgical standpoint, we could schedule this in the next week or 2 as an outpatient as his limb is not acutely threatened, with more chronic changes, and to promote healing of his left necrotic 1st toe after amputation. We will discuss further with family and patient tomorrow. cc: Elke Blandon MD
[2019-04-23] MEDS: LIPITOR PO SCH (22:30)
[2019-04-24] MEDS: PERCOCET-5 PO PRN ×3 (05:00→16:23)
[2019-04-24] MEDS: HEPARIN SUBQ SCH ×2 (05:08→13:17)
[2019-04-24 06:21] LABS: BASO# 0.01 X1000 (0.0-0.2); BASO% 0.2 % (0.0-0.8); EOS# 0.11 X1000 (0.0-0.7); HEMATOCRIT 29.9 % (42.0-52.0); LYMPH# 1.13 X1000 (1.2-3.4); LYMPH% 20.5 % (20.5-51.1); MCH 27.1 PG (27-31); MCHC 30.1 g/dL (33-37); MCV 90.1 FL (81-99); MONO# 0.48 X1000 (0.11-0.59); MONO% 8.7 % (1.7-9.3); MPV 11.8 FL (7.4-10.4); NEUT# 3.78 X1000 (1.4-6.5); NEUT% 68.6 % (42.2-75.2); PLT 125 X1000 (130-400); RBC 3.32 XMIL (4.7-6.1); RDW 17.9 % (11.5-14.5); WBC 5.51 X1000 (4.8-10.8)
[2019-04-24 06:43] LABS: ALBUMIN 2.5 g/dL (3.5-5.0); CALCIUM 8.7 mg/dL (8.8-10.2); CREATININE 2.1 mg/dL (0.7-1.2); PHOSPHORUS 2.9 mg/dL (2.7-4.5); POTASSIUM 3.8 mmol/L (3.5-5.1)
[2019-04-24] MEDS: HUMULIN R SUBQ SCH ×3 (07:00→16:27)
[2019-04-24] MEDS ORDERED: LASIX IV SCH (08:00)
[2019-04-24] MEDS: APRESOLINE PO SCH (10:35)
[2019-04-24] MEDS: COLACE PO SCH (10:36)
[2019-04-24] MEDS: ICAR-C PO SCH (10:36)
[2019-04-24] MEDS: FOLIC ACID PO SCH (10:36)
[2019-04-24] MEDS: SENOKOT PO SCH (10:36)
[2019-04-24] MEDS: NEURONTIN PO SCH (10:36)
[2019-04-24] MEDS: ENTRESTO 24 MG-26 MG TABLET PO SCH (10:37)
[2019-04-24] MEDS: DULCOLAX PR SCH (10:37)
[2019-04-24] MEDS: COLCRYS PO SCH (10:38)
[2019-04-24] MEDS: ISORDIL PO SCH ×3 (10:38→16:23)
[2019-04-24] MEDS: LEVAQUIN PO SCH (10:40)
[2019-04-24] MEDS: LACTULOSE PO SCH (10:40)
[2019-04-24] MEDS: MIRALAX PO SCH (10:41)
[2019-04-24] MEDS: COREG PO SCH (10:51)
--- NOTE | 2019-04-24 13:56 | NEPHROLOGY PROGRESS NOTE ---
DATE: 04/24/2019 SUBJECTIVE: He is lying on his side. No shortness of breath or other new complaints. OBJECTIVE: Vital Signs: Blood pressure 150/74, heart rate 80, respirations 20, afebrile. General: No acute distress. Skin: Warm and dry. Neck: Neck veins are distended. No change. Heart: Regular. Lungs: Equal. No crackles. Abdomen: Soft, nontender. Bowel sounds present. Extremities: Have 3+ edema. No clubbing or cyanosis. IMPRESSION: 1. Chronic kidney disease. At baseline. 2. Volume overload. Heart failure/chronic kidney disease. We will add furosemide 100 mg twice daily. cc: Baron Lemon MD
--- NOTE | 2019-04-24 15:49 | GENERAL SURGERY PROGRESS NOTE ---
DATE: 04/24/2019 SUBJECTIVE: No complaints. OBJECTIVE: Vital Signs: No fevers. No tachycardia. Extremities: Left foot has stable dry necrotic changes, left 1st toe. Cardiovascular: Normal rate. General: He is alert, no acute distress. LABS: Reviewed. His creatinine remains about his baseline, slightly increased to 2.1 from yesterday of 1.8. I reviewed the CT angiogram. He has a left SFA occlusion of long segment with reconstitution of the above-knee popliteal vessel. ASSESSMENT AND PLAN: Peripheral vascular disease with dry necrosis and ischemic pain of the left leg. Limb is not acutely threatened. He does need a femoral to above-knee popliteal bypass, which we will schedule as an outpatient to promote healing after left 1st toe amputation. We discussed this with the patient. We will see him in the office. Surgically, he is okay to discharge with Betadine paint to left 1st toe twice daily. We will see him within the next week to schedule surgery in the near future. cc: Elke Blandon MD
[2019-04-24 16:29] VITALS: BP 145/60
--- NOTE | 2019-04-24 18:19 | INFECTIOUS DISEASE PROGRESS NO ---
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 MEDICATIONS: The patient is receiving Levaquin as a single agent. This is day 4 of treatment with Levaquin with day 1 being the first day that the patient's blood cultures turn negative. PHYSICAL EXAMINATION: Vital Signs: Temperature is 98.4 degrees, pulse 80, respirations 20, blood pressure 150/74. General: This is an obese, middle-aged male. He is in no acute distress. Head/Eyes/Ears/Nose/Throat: He can hear my spoken words and see near objects. He does not have any white patches in his mouth. Neck: No pain with movement of the neck. Lungs: Clear to auscultation. Cardiovascular: Heart rate is regular. Abdomen: Soft and nontender. Extremities: The patient's left great toe continues to have dry necrosis and areas where there are large eschars. At the base of the toe, there is still some sanguinous drainage. Neurologic: The patient is alert. He is able to ambulate without difficulty. LAB AND X-RAY: There is no new radiographic study for today. Lab-sanchez, the patient has a CBC with a white count of 5510, hemoglobin 9, platelet count 125,000. Creatinine is 2.1. GFR is 39. ASSESSMENT AND PLAN: I am going to continue the patient's Levaquin and see him back in the office in 2 weeks. In the meanwhile, Dr. Blandon is going to meet with the patient and discuss revascularizing the patient's left leg. He may operate on the patient before the time I see him back in the office, but if he does, I will be seeing him in the hospital. The patient will need 38 more days of Levaquin treatment to treat the bacteremia and the osteomyelitis. The dose of Levaquin I am sending him home on is 500 mg daily. cc: Jeffery Platt MD
--- NOTE | 2019-04-24 23:50 | DISCHARGE SUMMARY ---
ADMISSION DATE: 04/16/2019 DISCHARGE DATE: 04/24/2019 DISPOSITION: Home. FOLLOW-UP: 1. Dr. Quintanilla. 2. Dr. Platt. 3. Dr. Lemon. 4. Dr. Blandon. CONSULTATION DURING ADMISSION: 1. Orthopedics was consulted. Initially, patient was seen by Dr. Erwin. 2. Infectious Disease was consulted. Patient was seen by Dr. Platt. 3. Nephrology was consulted. Patient was seen by Dr. Lemon. 4. Surgery was consulted. Patient was seen by Dr. Blandon. INVESTIGATIVE PROCEDURES DURING ADMISSION: None. IMAGING STUDIES OF SIGNIFICANCE: 1. A chest x-ray, initial showed right pleural effusion and pleural thickening, atelectasis versus pneumonia. 2. An initial x-ray of the foot showed erosion of the distal phalanx of the great toe, which may be indicative of osteomyelitis. 3. Lower extremity MRI showed no evidence of osteomyelitis. 4. Vascular study of the lower extremity shows significant atherosclerotic changes in the bilateral lower extremity, worse on the left, with flat waveforms noted at several locations on the bilateral toes. 5. An aorta angiogram with runoff showed occluded left superficial femoral artery, occluded bilateral anterior and posterior tibial arteries, and body wall edema with cardiomegaly. ADMISSION DIAGNOSES: 1. Left great toe with possible osteomyelitis. 2. Severe ischemic cardiomyopathy. 3. Diabetes mellitus. 4. Recurrent pleural effusion. 5. Chronic kidney disease stage 3. 6. Chronic obstructive pulmonary disease. DIAGNOSES AT DISCHARGE: 1. Left great toe dry gangrene with culture positive for Providencia rettgeri and possible associated underlying osteomyelitis. 2. Severe bilateral peripheral artery disease, worse on the left, with the left superficial femoral artery total occlusion and bilateral anterior and posterior tibial arteries on CTA. 3. Anasarca secondary to congestive heart failure and renal impairment. 4. Chronic kidney disease stage IIIB to IV. 5. Severe coronary artery disease with dilated ischemic cardiomyopathy. 6. Congestive heart failure with ejection fraction of 30% associated with global hypokinesis on echocardiogram done on 01/30/2018. 7. Hypertension. 8. Normocytic anemia. 9. Providencia rettgeri bacteremia which we think is what is coming from the left big toe gangrene. DISCHARGE MEDICATIONS: 1. Ergocalciferol. 2. Atorvastatin 80 mg p.o. at bedtime. 3. MiraLAX. 4. Hydralazine 25 mg b.i.d. 5. Colchicine 0.3 p.o. daily. 6. Carvedilol 6.25 b.i.d. 7. Entresto 24/26 mg, 1 tablet b.i.d. 8. Gabapentin 100 mg b.i.d. 9. Iron sulfate. 10. Imdur 20 mg 3 times per day. 11. Levaquin 500 p.o. daily. 12. Spironolactone 25 mg p.o. daily. 13. Torsemide 20 mg p.o. daily. 14. Metolazone 5 mg p.o. daily. Mr. Stewart is also supposed to do a basic metabolic panel in 1 week to follow up with Dr. Lemon as well as with Dr. Platt. PRESENTING COMPLAINT: Left foot pain. HISTORY OF PRESENTING COMPLAINT: Mr. Stewart is a 63-year-old male with a history of ischemic dilated cardiomyopathy, congestive heart failure with ejection fraction of 30%, severe coronary artery disease, diabetes mellitus, history of cocaine abuse in the past, and suspected noncompliance. The patient came to the emergency department because of left foot pain. He was evaluated, was thought to have some gangrene features, so he was subsequently admitted for further medical care. HOSPITAL COURSE: Mr. Stewart was admitted to the medical floor, was initially started on broad- spectrum antimicrobial therapy. The big toe on the left turned out to have Providencia rettgeri infection. Blood cultures also came back positive for the same. An MRI did not reveal any osteomyelitis. The patient's antibiotics was titrated to p.o. Levaquin. The patient was seen by Infectious Disease. During the hospital course, Mr. Stewart was also seen by both Orthopedics and surgery because of gangrene big left toe. Multiple vascular studies were done. Eventually, decision was made to do an angiogram, even not withstanding his poor renal function. This test was successfully done yesterday and it revealed a total occlusion of the left superficial femoral artery, and also bilateral anterior and posterior tibial arteries on both lower extremities. Surgery evaluated him and made the decision that this will be addressed on outpatient basis. Mr Stewart also had a lot of fluid overload during the hospital course. He was making some urine, but obviously oliguric. He was evaluated by Nephrology as well. Mr. Stewart has been on large doses of Lasix, even at home, so we think that he probably is either not very compliant or Lasix resistant, so we switched him to torsemide and we have added metolazone to enhance the diuretic properties of the loop diuretic. Because of his advanced congestive heart failure and the advanced ischemic cardiomyopathy, we have also added spironolactone. Mr. Stewart is clinically stable, at this point, for discharge. He does have numerous comorbidities. He has been advised to be extremely compliant with his medications. He is supposed to do a BMP in 1 week's time and follow up with the results with Nephrology. Because he was given contrast, there is a high probability that his kidney function could get worse and he might even end up on dialysis. This was all addressed with him. He seems to understand to some extent. We told him the final decision will be made and will be followed up with Nephrology on outpatient. Mr. Ortiz is also supposed to follow up with Cardiology on outpatient basis. All the discharge instructions have been discussed with him. He voiced understanding. TIME SPENT: For discharge is 37 minutes. cc: Sanjay Cronin MD MTDD
== END 2019-04-24 16:56 | disposition hospice, home (50) | DRG 638 ==
LOC: ED 13:30 → SUATTDRO 18:41 → 2N 18:41 → 4N 04-18 15:07
PROVIDERS: ATTEND Internal Medicine

== ENCOUNTER 2019-05-11 14:06 | Inpatient (IN) ==
[2019-05-11 15:49] LABS: BASO# 0.01 X1000 (0.0-0.2); BASO% 0.2 % (0.0-0.8); EOS# 0.07 X1000 (0.0-0.7); EOS% 1.1 % (0.0-10.0); HEMATOCRIT 24.8 % (42.0-52.0); HEMOGLOBIN 7.8 g/dL (14.0-18.0); LYMPH# 1.09 X1000 (1.2-3.4); LYMPH% 17.8 % (20.5-51.1); MCHC 31.5 g/dL (33-37); MCV 85.8 FL (81-99); MONO# 1.06 X1000 (0.11-0.59); MONO% 17.3 % (1.7-9.3); MPV 11.9 FL (7.4-10.4); NEUT# 3.91 X1000 (1.4-6.5); NEUT% 63.6 % (42.2-75.2); PLT 129 X1000 (130-400); RBC 2.89 XMIL (4.7-6.1); RDW 18.5 % (11.5-14.5); WBC 6.14 X1000 (4.8-10.8)
[2019-05-11 16:01] LABS: INR 1.25; PROTIME 15.9 Seconds (11.0-16.0)
[2019-05-11 16:14] LABS: ALB/GLOB RATIO 0.7; ALBUMIN 2.9 g/dL (3.5-5.0); CALCIUM 7.8 mg/dL (8.8-10.2); CREATININE 2.7 mg/dL (0.7-1.2); POTASSIUM 3.6 mmol/L (3.5-5.1); TOTAL BILIRUBIN 0.53 mg/dL (0.20-1.00); TOTAL PROTEIN 6.8 g/dL (6.3-8.3)
--- NOTE | 2019-05-11 17:36 | PROVIDER DOCUMENTATION ---
HPI-General Adult - General Chief Complaint: Abnormal Lab[s] Stated Complaint: ABNORMAL LAB[S] - DR GILL REFERRAL Time Seen by Provider: 05/11/19 14:21 Source: patient, family Allergies/Adverse Reactions: Patient Allergies Allergy/AdvReac Type Severity Reaction Status Date / Time No Known Allergies Allergy Verified 04/16/19 15:45 Home Medications: Home Medication List Medication Instructions Recorded Confirmed Last Taken Type Ergocalciferol (Vitamin D2) 50,000 units PO Q7D 01/21/19 05/05/19 Unknown History [Vitamin D2] ATORVAstatin [Lipitor] 80 mg PO HS #120 tab 01/23/19 05/05/19 Unknown Rx Carvedilol [Coreg] 6.25 mg PO BID 120 Days #90 tab 01/23/19 05/05/19 Unknown Rx Colchicine [Colcrys] 0.3 mg PO DAILY #60 tab 01/23/19 05/05/19 Unknown Rx Folic Acid 1 mg PO DAILY #120 tab 01/23/19 05/05/19 Unknown Rx Gabapentin 100 mg PO BID #60 cap 01/23/19 05/05/19 Unknown Rx Hydralazine [Apresoline] 25 mg PO BID #120 tab 01/23/19 05/05/19 Unknown Rx Iron Carbonyl/Ascorbic Acid 1 ea PO DAILY #60 tab 01/23/19 05/05/19 Unknown Rx [Icar-C] Isosorbide Mononitrate E.r. [Imdur] 20 mg PO TID #120 tab 01/23/19 05/05/19 Unknown Rx Polyethylene Glycol 3350 [Miralax] 17 gm PO BID #12 powder, packet 01/23/19 05/05/19 Unknown Rx Sacubitril/Valsartan [Entresto 24 1 ea PO BID #60 tab 01/23/19 05/05/19 Unknown Rx mg-26 mg Tablet] Levofloxacin [Levaquin] 500 mg PO DAILY #19 tab 04/24/19 05/05/19 Unknown Rx Metolazone 5 mg PO DAILY #120 tab 04/24/19 05/05/19 Unknown Rx Oxycodone/APAP 5 mg/325 mg 1 ea PO Q4H PRN PRN #20 tab 04/24/19 05/05/19 Unknown Rx [Percocet-5] Spironolactone 25 mg PO DAILY #60 tab 04/24/19 05/05/19 Unknown Rx Torsemide [Demadex] 20 mg PO DAILY #60 tab 04/24/19 05/05/19 Unknown Rx Hum Insulin NPH/Reg Insulin Hm 0 - 12 unit SQ BID 05/05/19 05/05/19 Unknown History [Novolin 70-30 100 Unit/ml Vial] - History of Present Illness -Gen Adult Nature of Presenting Problems: 63 YO M pmh for CKD and being followed by Dr. Gill was sent today by Dr. Gill for low hemoglobin of 6.9 and creat of 3.7. He is due for surgery bypass grafting of his left lower extremity but is unsure of who is supposed to be performing his surgery. Timing: reports: still present Context/Activities at Onset: reports: none Review of Systems - Adult - REVIEW OF SYSTEMS - ADULT Constitutional: denies: chills, fever Eyes: reports: no symptoms reported Ears, Nose, Mouth & Throat: reports: no symptoms reported Cardiovascular: denies: chest pain, edema Gastrointestinal: reports: no symptoms reported Genitourinary: reports: no symptoms reported Musculoskeletal: reports: other (left lower extremity pain) Past History - Adult - PAST MEDICAL HISTORY-ADULT Review of Records: reports: Old Records Reviewed, Nursing Assessment Review Major Childhood Illnesses: reports: denies history Cardiovascular: reports: CAD, CHF, HTN, hyperlipidemia Respiratory: reports: COPD Gastrointestinal: reports: denies history Obstetrical/Gynecological: reports: denies history Genitourinary: reports: denies history Musculoskeletal: reports: denies history Neurological: reports: CVA Endocrine/Immune: reports: Diabetes Other Conditions: reports: denies history - PRIOR SURGERIES/PROCEDURES Surgical/Procedure History: reports: appendectomy, CABG, cholecystectomy, cardiac stent - IMMUNIZATION STATUS Childhood Immunizations: See Nurse Assessment Flu Vaccine: See Nurse Assessment - FAMILY HISTORY Family History: reviewed, not pertinent Physical Exam-General - PHYSICAL EXAM-ADULT Initial Vital Signs Reviewed: Yes - CONSTITUTIONAL General Appearance: alert, no apparent distress - HEAD, EARS, NOSE, MOUTH & THROAT HENMT: normocephalic/atraumatic, moist mucous membranes - NECK Neck: full range of motion - RESPIRATORY Respiratory: lungs clear, normal breath sounds - CARDIOVASCULAR Cardiovascular: regular rate, rhythm - GASTROINTESTINAL (ABDOMEN) Abdominal Exam: non tender, soft - MUSCULOSKELETAL Back Exam: other (LE swelling b/l) - SKIN Integumentary: warm/dry - NEUROLOGIC Neurologic: grossly normal - PSYCHIATRIC Psych/Mental Status: normal mood/affect Progress - PLAN OF CARE/RESULTS Progress/Plan/Lab Results: Vital Signs - 8 hr 05/11/19 14:10 Temperature 99.1 F Pulse Rate 73 Respiratory Rate 20 Blood Pressure 127/58 O2 Sat by Pulse Oximetry 95 Laboratory Results - last 24 hr 05/11/19 05/11/19 05/11/19 15:09 15:09 15:09 WBC 6.14 RBC 2.89 L Hgb 7.8 L Hct 24.8 L MCV 85.8 MCH 27.0 MCHC 31.5 L RDW Std Deviation 18.5 H Plt Count 129 L MPV 11.9 H Immature Gran % (Auto) 0.0 Neut % (Auto) 63.6 Lymph % (Auto) 17.8 L [place] % (Auto) 17.3 H Eos % (Auto) 1.1 Baso % (Auto) 0.2 Immature Gran # (Auto) 0.00 Neut # (Auto) 3.91 Lymph # (Auto) 1.09 L [place] # (Auto) 1.06 H Eos # (Auto) 0.07 Baso # (Auto) 0.01 PT 15.9 INR 1.25 PTT (Actin FS) 44.0 H Sodium 139 Potassium 3.6 Chloride 101 Carbon Dioxide 24 L Anion Gap 14 BUN 46 H Creatinine 2.7 H Estimated GFR/1.73 m2 29 BUN/Creatinine Ratio 17 Glucose 151 H Calculated Osmolality 292 Calcium 7.8 L Total Bilirubin 0.53 AST 21 ALT 15 Alkaline Phosphatase 229 H Total Protein 6.8 Albumin 2.9 L Globulin 3.9 Albumin/Globulin Ratio 0.7 Orders Category Date Time Status CBC WITH ELECTRONIC DIFF [HEME] Stat Lab 05/11/19 15:09 Completed COMPREHENSIVE METABOLIC PANEL [CHEM] Stat Lab 05/11/19 15:09 Completed PT [PROTIME WITH INR] [COAG] Stat Lab 05/11/19 15:09 Completed PTT [COAG] Stat Lab 05/11/19 15:09 Completed TYPE & SCREEN [BBK] Stat Lab 05/11/19 15:22 Uncollected Result Diagrams: 05/11/19 15:09 05/11/19 15:09 - REASSESSMENT Reassessment #1 Time Reassessed: 17:40 Status: unchanged (per record review, Dr. Blandon is supposed to be performing his bypass graft surgery on May 13, 2019.) Reassessment #2 Time Reassessed: 17:50 Status: unchanged (called and spoke with Dr. Gill who suggests that pt have a unit of blood before his procedure due for 2 days from now.) - CONSULTS/PCP/HOSPITALIST Notification #1 *Consult/PCP/Hospitalist*: Dr. Cantor Time Discussed: 18:24 Consult Disposition: Will see in ED Departure - Departure Date of Disposition Decision: 05/11/19 Time of Disposition Decision: 18:21 DIAGNOSIS: Elevated serum creatinine, CKD (chronic kidney disease), Pain of left lower extremity, Anemia Disposition: ADMITTED INPATIENT 09 Certified Medical Emergency: Emergent Condition: Stable Referrals and Follow-Ups: Sanchez Mcdonald MD [Primary Care Provider] - - Critical Care Note This patient required my direct & personal management of CC.: No Attestation - Physician/ EUGENIO Attestation The physician spent face to face time with patient:: Yes Advanced Practice Provider documentation review:: Supervising physician onsite and consulted in the evaluation and care of this patient. The physician did have a face to face encounter with the patient.
[2019-05-11] MEDS ORDERED: NS 500 ML IV ONE (18:17)
--- NOTE | 2019-05-11 19:07 | HISTORY AND PHYSICAL ---
REASON FOR ADMISSION: He needed to have a transfusion. HISTORY OF PRESENT ILLNESS: This is a 63-year-old male who came in with a past medical history for medical noncompliance, severe ischemic cardiomyopathy with systolic congestive heart failure, ejection fraction 20 to 25 percent, severe coronary artery disease, hypertension, hyperlipidemia, diabetes mellitus type 2, history of cocaine abuse, recurrent right pleural effusion for which she has required thoracentesis. Has a history of gout, folic acid deficiency, constipation, COPD, chronic kidney disease stage 3. He started having foot pain. He had started having foot pain. He had erosion of the distal phalanx of the right great toe and osteomyelitis. PAST SURGICAL HISTORY: 1. Multiple thoracentesis. 2. Coronary stenting, multiple occasions. 3. Right foot surgery. SOCIAL HISTORY: Quit smoking in 2018. He smoked a pack a day for years. History of cocaine abuse in the past. Denies any current illicit drug use. FAMILY HISTORY: Positive for coronary artery disease. ALLERGIES: No known drug allergies. REVIEW OF SYSTEMS: He denies any weight gain or loss. No fever or chills.HEENT: HEENT. No change in vision or hearing acuity. Respiratory: No increased work of breathing or dyspnea. Cardiovascular: No chest pain or tachy palpitation. GI and : Unremarkable. Musculoskeletal and neurologic: No significant issues. Endocrinologic/immunologic: No significant history. PHYSICAL EXAMINATION: VITAL SIGNS: Temperature 98.2 degrees, pulse 63, respirations 16, blood pressure 132/64. HEENT: Pupils are equal and round. LUNGS: Clear in all lung rawls. CARDIOVASCULAR: Regular rhythm and rate without murmur or S3. ABDOMEN: Soft. SKIN: Warm and dry. Height is 6 feet 2 inches. O2 saturations were 100%. SUMMARY: He had been seen and followed by Dr. Blandon. He has necrosis of the left 1st toe, also severe peripheral vascular disease with an TRACI of 0.4. So, they have treated him with Betadine, wound care and then they did a workup to investigate for possible vascular intervention. So, I think they obtained a CT with CDA runoff. Occluded left superficial femoral artery, occluded bilateral anterior and posterior tibial arteries. Body wall edema and cardiomegaly, bilateral pleural effusion, ascites. I think surgery, I am not sure if they were planning definitive vascular surgery or if they were planning amputation, but they recommended that he get a blood transfusion and apparently he saw Dr. Lemon in his office and Dr. Lemon reiterated that. So plan to admit and see if we can give him a transfusion. I am going to give him 2 units of packed red blood cells. I saw a note where Dr. Platt had seen him for Providencia osteomyelitis of left great toe with associated bacteremia. Getting Levaquin as a single agent for a while. cc: MD Elke June MD MTDD
[2019-05-11] MEDS ORDERED: TYLENOL PO PRN (21:05)
[2019-05-11] MEDS ORDERED: ZOFRAN IV PRN (21:05)
[2019-05-12] MEDS: ENTRESTO 24 MG-26 MG TABLET PO SCH ×3 (01:22→21:50)
[2019-05-12] MEDS: MIRALAX PO SCH ×3 (01:22→21:52)
[2019-05-12] MEDS: LIPITOR PO SCH ×2 (01:22→21:50)
[2019-05-12] MEDS: ISMO PO SCH ×4 (01:22→21:50)
[2019-05-12] MEDS: NEURONTIN PO SCH ×3 (01:22→21:50)
[2019-05-12] MEDS: APRESOLINE PO SCH ×3 (01:23→21:50)
[2019-05-12] MEDS: COREG PO SCH ×3 (01:23→21:51)
[2019-05-12] MEDS: VITAMIN D PO SCH (01:24)
[2019-05-12] MEDS ORDERED: NS 250 ML IV SCH (03:45)
[2019-05-12] MEDS: HUMULIN R SUBQ SCH ×5 (06:56→23:20)
[2019-05-12 07:48] LABS: BASO# 0.01 X1000 (0.0-0.2); BASO% 0.2 % (0.0-0.8); EOS# 0.11 X1000 (0.0-0.7); EOS% 1.8 % (0.0-10.0); HEMATOCRIT 25.3 % (42.0-52.0); IMM GRAN# 0.03 X1000 (0.0-0.04); IMM GRAN% 0.5 % (0.0-0.5); LYMPH% 21.4 % (20.5-51.1); MCH 27.2 PG (27-31); MCHC 31.6 g/dL (33-37); MCV 86.1 FL (81-99); MONO# 1.03 X1000 (0.11-0.59); MPV 12.2 FL (7.4-10.4); NEUT# 3.59 X1000 (1.4-6.5); NEUT% 59.1 % (42.2-75.2); PLT 126 X1000 (130-400); RBC 2.94 XMIL (4.7-6.1); RDW 17.7 % (11.5-14.5); WBC 6.07 X1000 (4.8-10.8)
[2019-05-12] MEDS ORDERED: DEMADEX PO SCH (09:00)
[2019-05-12] MEDS: FOLIC ACID PO SCH (10:04)
[2019-05-12] MEDS: ICAR-C PO SCH (10:04)
[2019-05-12] MEDS: COLCRYS PO SCH (10:05)
[2019-05-12] MEDS: ALDACTONE PO SCH (10:05)
[2019-05-12] MEDS: LEVAQUIN PO SCH (10:05)
[2019-05-12] MEDS: ZAROXOLYN PO SCH (10:06)
[2019-05-12] MEDS: PERCOCET-5 PO PRN ×2 (11:49→21:55)
--- NOTE | 2019-05-12 12:44 | PROGRESS NOTE ---
DATE: 05/12/2019 SUBJECTIVE: This morning, Mr. Stewart refers to be doing okay. No new complaints. Still has some cramps and pains in his left toes and foot. He is pending surgery evaluation for possible intervention on that foot. OBJECTIVE: Vital Signs: Blood pressure is 136/68, pulse of 70, respirations 18, temperature 97.6 degrees, the patient is saturating 100%. General: Mr. Stewart is a 63-year-old gentleman. He is in bed. No distress. HEENT: Mucosa is pink and moist. Anicteric. Acyanotic. Neck: Supple. Chest: Good air entry bilaterally. No crepitations. No rhonchi. Cardiovascular: Regular rate and rhythm. No murmurs. Abdomen: Soft and distended, but nontender. Bowel sounds present. Extremities: No pedal edema. The left big toe obviously looks necrotic, looks dry. No smell. LABORATORY DATA: Hemoglobin is up to 8.0. Rest of CBC is unremarkable. Glucose is 111. No chemistry for this morning. The patient is status post 1 unit of PRBC transfused. SIGNIFICANT IMAGING STUDIES: On 04/23/2019, an aorta runoff was done, which showed an occluded left superficial femoral artery. There were also occluded bilateral anterior and posterior tibial arteries. There is body edema with cardiomegaly noted. ASSESSMENT: 1. Left great toe dry gangrene. 2. Severe bilateral peripheral vascular disease with totally occluded left superficial femoral artery and bilateral posterior and anterior tibial arteries on both lower extremities. 3. Chronic kidney disease stage IIIB to IV. 4. Severe coronary artery disease with dilated ischemic cardiomyopathy, ejection fraction of about 20%. 5. Hypertension. 6. Gout, currently in no flare. In general, I feel Mr. Stewart is fairly stable. He has been given a unit of blood, and he is pending Surgery evaluation for possible vascular intervention on the left lower extremity. We are going to continue with his home medications, and address all of his other comorbidities accordingly. cc: Sanjay Cronin MD
--- NOTE | 2019-05-12 13:26 | Diag Imaging Result Doc PS360 ---
EXAM: CHEST-2 VIEWS 05/12/2019 HISTORY: for surgery TECHNIQUE: PA and lateral chest COMMENT: There is a fairly large right pleural effusion. The volume may have decreased somewhat since 04/17/2019. There is less apparent pulmonary edema. The atelectatic changes in the right base have improved somewhat. IMPRESSION: Improved right pleural effusion and basilar atelectasis. Electronically signed by Chan Abdi 05/12/2019 1:23 PM
[2019-05-12] MEDS ORDERED: LASIX IV ONE (17:34)
--- NOTE | 2019-05-12 22:22 | CONSULTATION ---
DATE OF CONSULTATION: 05/12/2019 IMPRESSION: 1. Acute on chronic biventricular systolic heart failure. Patient continues to manifest evidence of volume overload with neck vein distention, pleural effusion and edema. 2. Severe cardiomyopathy with left ventricular ejection fraction approximately 20%. 3. Atherosclerotic coronary disease with previous coronary angioplasty/stenting. Cardiomyopathy somewhat out of proportion to documented coronary disease. 4. Hypertension. 5. Hyperlipidemia. 6. Type 2 diabetes mellitus. 7. History of cocaine abuse. 8. Extensive history of peripheral vascular disease. Patient currently with severe peripheral vascular disease lower extremities worse in the left lower extremity with recent CT angiogram with runoff indicating occluded left superficial femoral artery, occluded bilateral anterior and posterior tibial arteries. 9. Left great toe with suspected osteomyelitis. 10. Chronic kidney disease nearing stage 4. RECOMMENDATIONS: 1. Diurese with IV Lasix. 2. Consider thoracentesis. 3. Patient moderate risk for perioperative cardiovascular complications when congestive heart failure ideally improved. However, this ideal does not seem to be easily achieved. HISTORY: This 63-year-old -[place] male with past history of chronic congestive heart failure, severe cardiomyopathy, atherosclerotic coronary disease, severe peripheral vascular disease, diabetes mellitus, and chronic kidney disease stage 3 nearing stage IV was admitted for preoperative management prior to surgery to address ischemic left lower extremity. Is not clear whether he is to have further efforts at peripheral revascularization or possibly even amputation. He is to receive transfusion preoperatively. The patient denies shortness of breath or chest pain. He has chronic tendency for lower extremity edema. He has recently been suspected of having osteomyelitis of left great toe. He has required multiple thoracenteses in the past for persistently recurrent right pleural effusion related to his congestive heart failure. Radiographic studies this admission again showed significant right pleural effusion. PAST MEDICAL HISTORY: 1. Severe cardiomyopathy. 2. Status post multiple coronary angioplasty/stent procedures in the past. 3. Chronic kidney disease stage 3 bordering on stage 4. 4. Chronic congestive heart failure with recurrent right pleural effusions requiring thoracentesis. 5. Type 2 diabetes mellitus. 6. Hypertension. 7. Hyperlipidemia. 8. Severe peripheral vascular disease. 9. Suspected left great toe osteomyelitis. PAST SURGICAL HISTORY: Includes cholecystectomy, hemorrhoidectomy, cyst removal and toe surgery. ALLERGIES: He has no known drug allergies. SOCIAL HISTORY: He is . He lives alone but has a daughter. Has history of cocaine use. He quit smoking in 2018 after smoking a pack of cigarettes daily for many years. FAMILY HISTORY: Positive for coronary disease. REVIEW OF SYSTEMS: Pulmonary: Negative for dyspnea or cough. Gastrointestinal: Negative. Constitutional: Noncontributory. Remainder review of systems negative/noncontributory with 14 total systems reviewed. PHYSICAL EXAMINATION: General: This is a older -[place] male in no distress on room air. Vital signs: Blood pressure 148/72, heart rate 69, oxygen saturation 96%. HEENT: Extraocular movements appear intact. Mucous membranes are moist. Neck: Supple. Jugular distention is present suggesting significantly elevated central venous pressure. Auscultation of the chest reveals diminished breath sounds at bases particularly in the right base. Cardiac: Reveals a regular rate and rhythm without appreciable murmur or gallop. Abdomen: Soft. Bowel sounds are normal. Extremities: Demonstrate mild to moderate edema which is somewhat woody in nature. There is bandage in place over left foot. Neurologic: Reveals him to be awake and responsive. Speech is fluent. Moves all 4 extremities equally well. DATA: Twelve lead EKG is pending. LABORATORY DATA: Includes a white blood cell count 6.07, hematocrit 25.3, hemoglobin 8.0, platelet count 126,000. Sodium 139, potassium 3.6, chloride 101, carbon dioxide 24, BUN 46, creatinine 2.7. Estimated GFR 29. Glucose 151, albumin 2.9. cc: Eldon Robins MD
--- NOTE | 2019-05-13 03:37 | GENERAL SURGERY CONSULTATION ---
DATE: 05/12/2019 REASON FOR CONSULTATION: Known peripheral vascular disease, ischemia of the toes, and anemia. HISTORY OF PRESENT ILLNESS: This 63-year-old gentleman known to me who was recently admitted and found to have ischemic changes to his left foot. He is found to have SFA occlusion and scheduled for surgery tomorrow. He has a chronic anemia related to multiple issues. No bleeding, but came in anemic and was transfused since he has been here. Creatinine is chronically elevated, it is up to 2.7, slightly worse than it was when he left the hospital previously. Otherwise, he is in no acute distress. PHYSICAL EXAMINATION: Vital signs: No fevers. Pulse has been in the 60s to 70s, blood pressure 148/72, oxygen saturation 96%. General: He is alert, no acute distress. HEENT: No scleral icterus. No cervical mass. Cardiovascular: Normal rate. Pulmonary: No increased work of breathing. Abdomen: Soft. Integumentary: Warm and dry. He has a wound on his left foot and chronic ischemic changes. LABORATORY DATA: White count 6, hematocrit 25, platelets 126,000. Creatinine is 2.7, glucose is high at 259. LFTs are normal with the exception of mild elevation of his alkaline phosphatase. ASSESSMENT AND PLAN: This is a 63-year-old gentleman with peripheral vascular disease. We will make him n.p.o. at midnight and transfuse him in anticipation of surgery tomorrow. Otherwise, I do not see any contraindication to his surgery, as it is doubtful that his foot will improve. He does have cardiomyopathy, hypertension, and gout. We will plan for femoral-popliteal above knee bypass and amputation of his ischemic toes tomorrow. cc: Elke Blandon MD
[2019-05-13] MEDS ORDERED: HURRICAINE SPRAY (DOSE) ONE (06:04)
[2019-05-13] MEDS ORDERED: STERILE WATER INJ. ONE (06:14)
[2019-05-13] MEDS ORDERED: SODIUM CHLORIDE 0.9% 0 ML ONE (06:14)
[2019-05-13] MEDS ORDERED: NEO-SYNEPHRINE ONE (06:14)
[2019-05-13] MEDS ORDERED: NORCURON ONE (06:14)
[2019-05-13] MEDS ORDERED: XYLOCAINE-MPF 2% ONE (06:14)
[2019-05-13] MEDS ORDERED: QUELICIN (DOSE) ONE (06:14)
[2019-05-13] MEDS ORDERED: ROBINUL ONE (06:16)
[2019-05-13] MEDS ORDERED: FENTANYL ONE (06:16)
[2019-05-13] MEDS ORDERED: DIPRIVAN 1% ONE (06:16)
[2019-05-13] MEDS ORDERED: PAPAVERINE ONE (06:20)
[2019-05-13] MEDS ORDERED: KEFZOL ONE (06:20)
[2019-05-13] MEDS ORDERED: HEPARIN ONE (06:20)
[2019-05-13] MEDS ORDERED: NS 0 ML ONE (06:21)
[2019-05-13] MEDS: HUMULIN R SUBQ SCH ×5 (06:50→22:22)
[2019-05-13 07:10] LABS: BASO# 0.01 X1000 (0.0-0.2); BASO% 0.2 % (0.0-0.8); EOS# 0.06 X1000 (0.0-0.7); EOS% 0.9 % (0.0-10.0); HEMATOCRIT 26.7 % (42.0-52.0); HEMOGLOBIN 8.3 g/dL (14.0-18.0); LYMPH# 1.27 X1000 (1.2-3.4); LYMPH% 19.8 % (20.5-51.1); MCH 26.7 PG (27-31); MCHC 31.1 g/dL (33-37); MCV 85.9 FL (81-99); MONO# 1.01 X1000 (0.11-0.59); MONO% 15.8 % (1.7-9.3); NEUT# 4.06 X1000 (1.4-6.5); NEUT% 63.3 % (42.2-75.2); PLT 139 X1000 (130-400); RBC 3.11 XMIL (4.7-6.1); WBC 6.41 X1000 (4.8-10.8)
[2019-05-13 07:35] LABS: ALBUMIN 2.6 g/dL (3.5-5.0); CALCIUM 8.7 mg/dL (8.8-10.2); CREATININE 2.5 mg/dL (0.7-1.2); PHOSPHORUS 3.2 mg/dL (2.7-4.5); POTASSIUM 3.7 mmol/L (3.5-5.1)
[2019-05-13] MEDS: PERCOCET-5 PO PRN ×3 (08:01→19:56)
[2019-05-13] MEDS: NEURONTIN PO SCH ×3 (10:51→22:21)
[2019-05-13] MEDS: ISMO PO SCH ×4 (10:51→22:22)
[2019-05-13] MEDS: ICAR-C PO SCH (10:51)
[2019-05-13] MEDS: APRESOLINE PO SCH ×4 (10:52→22:21)
[2019-05-13] MEDS: ALDACTONE PO SCH (10:52)
[2019-05-13] MEDS: MIRALAX PO SCH ×3 (10:52→22:22)
[2019-05-13] MEDS: FOLIC ACID PO SCH (10:52)
[2019-05-13] MEDS: COLCRYS PO SCH (10:52)
[2019-05-13] MEDS: ENTRESTO 24 MG-26 MG TABLET PO SCH ×3 (10:52→22:21)
[2019-05-13] MEDS: COREG PO SCH ×3 (10:53→22:21)
[2019-05-13] MEDS: ZAROXOLYN PO SCH (10:53)
[2019-05-13] MEDS: LASIX IV SCH (10:53)
[2019-05-13] MEDS: LEVAQUIN PO SCH (10:54)
--- NOTE | 2019-05-13 14:18 | PROGRESS NOTE ---
DATE: 05/13/2019 SUBJECTIVE: Patient continues without chest discomfort or shortness of breath. OBJECTIVE: Vital Signs: Blood pressure 142/69, heart rate 68, and oxygen saturation 97% on room air. Neck: Jugular venous distention is significantly elevated consistent with elevated central venous pressure. Lungs: Auscultation of chest reveals diminished breath sounds at right base to almost chcf up. Cardiac: Exam reveals a regular rate and rhythm without appreciable murmur or gallop. Extremities: Demonstrate trace edema with some chronic stasis changes. LABORATORY DATA: Includes a white blood cell count 6.41, hematocrit 26.7, hemoglobin 8.3, and platelet count 139,000. Sodium 142, potassium 3.7, chloride 103, carbon dioxide 27, BUN 46, creatinine 2.5, glucose 115, and albumin 2.6. IMPRESSION: 1. Acute on chronic biventricular congestive heart failure predominantly right-sided with neck vein distention, and pleural effusion on the right. 2. Severe cardiomyopathy with left ventricular ejection fraction approximately 20%. 3. Atherosclerotic coronary disease. 4. Hypertension. 5. Hyperlipidemia. 6. Extensive peripheral vascular disease. 7. Left great toe with suspected osteomyelitis. 8. Chronic kidney disease nearing stage IV. RECOMMENDATIONS: 1. Continue to diurese with IV Lasix. 2. Arrange right-sided thoracentesis with ultrasound guidance to try to expedite clinical improvement from a standpoint of congestive heart failure. This was discussed with the patient. He very much wishes to proceed. 3. Arrange abdominal ultrasound given some suspicion raised for possible cirrhosis with hypoalbuminemia and elevated ProTime. cc: Eldon Robins MD
--- NOTE | 2019-05-13 16:10 | PROGRESS NOTE ---
DATE: 05/13/2019 SUBJECTIVE: This morning Mr. Stewart refers to be doing fairly okay. Denies any new complaints. He is still waiting for surgery to be done; however, we are waiting for euvolemic status, trying to optimize his cardiac status. OBJECTIVE: Current vitals: Blood pressure is 142/69, pulse of 68, respiration is 22, temperature is 97.8 degrees. General exam: Mr. Stewart is a 63-year-old gentleman. He is in bed. He did not seem to be in any distress. HEENT: Mucosa is pink and moist. Anicteric. Acyanotic. Neck: Neck is supple. There is positive JVD. Chest: Air entry is bilaterally reduced with crackles posteriorly. Cardiovascular: Regular rate and rhythm with occasional extrasystolic beats. No murmur. Abdomen: Soft, distended. There is some edema at the lateral aspect of the abdominal wall. Extremities: There is also edema on the upper thighs. The left big toe is necrotic, but looks dry. No smell. LABORATORY DATA: WBC is 6.41, hemoglobin is 8.3, platelet count of 136. Chemistry is also reviewed. Creatinine continues to be 2.5, fairly within his baseline. CURRENT MEDICATIONS: Have all been reviewed. No changes. LABS: The patient's intake and output: Urine output was 2375. Patient is negative balance of 1515. ASSESSMENT: 1. Left great toe dry gangrene with osteomyelitis. The patient is pending surgical intervention. 2. Severe bilateral peripheral vascular disease. 3. Chronic kidney disease stage III-B to IV. 4. Severe coronary artery disease with dilated ischemic cardiomyopathy. Ejection fraction of about 20%. 5. Acute on chronic biventricular systolic heart failure. 6. Hypertension. 7. Gout. 8. Fluid overload secondary to congestive heart failure. PLAN: So, in general, Mr. Stewart seems to be diuresing well on the IV diuretic therapy. He is also on both metolazone and spironolactone to enhance the loop diuretic. He continues to show congestion. Cardiology has ordered ultrasound-guided thoracentesis, and also an ultrasound of the abdomen to rule out cirrhosis of the liver. cc: Sanjay Cronin MD
[2019-05-13] MEDS: LIPITOR PO SCH ×2 (19:56→22:21)
--- NOTE | 2019-05-14 00:46 | GENERAL SURGERY PROGRESS NOTE ---
DATE: 05/13/2019 SUBJECTIVE: Patient's surgery was canceled this morning due to volume overload. He is feeling okay, but his foot and leg still hurt. No fevers. No tachycardia. OBJECTIVE: vital signs: Blood pressure 142/71, oxygen saturation 95%. General: He is alert. Extremities: His left foot dressing is clean, stable necrotic changes on the distal aspect of his toes. LABS: White count is normal, hematocrit 26. Creatinine is 2.5 down from 2.7. ASSESSMENT AND PLAN: This is a 63-year-old gentleman with cardiomyopathy, congestive heart failure. He has peripheral vascular disease and dry gangrene of his toes. He is being optimized by Cardiology and we will work to get him rescheduled for surgery as he is more clear medically. We will continue Betadine paint to his toes. cc: Elke Blandon MD
[2019-05-14] MEDS: PERCOCET-5 PO PRN ×3 (03:13→15:36)
[2019-05-14] MEDS: HUMULIN R SUBQ SCH ×4 (06:13→21:37)
[2019-05-14 07:26] LABS: BASO# 0.01 X1000 (0.0-0.2); BASO% 0.2 % (0.0-0.8); EOS# 0.07 X1000 (0.0-0.7); EOS% 1.1 % (0.0-10.0); HEMOGLOBIN 8.1 g/dL (14.0-18.0); LYMPH# 1.26 X1000 (1.2-3.4); LYMPH% 20.7 % (20.5-51.1); MCHC 31.2 g/dL (33-37); MCV 86.7 FL (81-99); MONO# 0.94 X1000 (0.11-0.59); MONO% 15.4 % (1.7-9.3); MPV 12.1 FL (7.4-10.4); NEUT# 3.81 X1000 (1.4-6.5); NEUT% 62.6 % (42.2-75.2); PLT 130 X1000 (130-400); RDW 18.2 % (11.5-14.5); WBC 6.09 X1000 (4.8-10.8)
[2019-05-14 07:47] LABS: ALBUMIN 2.6 g/dL (3.5-5.0); CALCIUM 8.3 mg/dL (8.8-10.2); CREATININE 2.7 mg/dL (0.7-1.2); MAGNESIUM 1.5 mg/dL (1.5-2.7); PHOSPHORUS 3.4 mg/dL (2.7-4.5); POTASSIUM 3.7 mmol/L (3.5-5.1)
--- NOTE | 2019-05-14 08:54 | Diag Imaging Result Doc PS360 ---
EXAM: CHEST-2 VIEWS 05/14/2019 HISTORY: POST THORACENTESIS TECHNIQUE: Inspiratory expiratory chest following right-sided thoracentesis. COMMENT: The pleural effusion which was present on 05/12/2019 has diminished in volume following thoracentesis. The heart size remains enlarged. There is no pneumothorax. There is some atelectasis if not pneumonia in the right lower lobe. IMPRESSION: Improved right pleural effusion. No evidence of pneumothorax. Electronically signed by Chan Abdi 05/14/2019 8:51 AM
[2019-05-14] MEDS: ALDACTONE PO SCH (09:07)
[2019-05-14] MEDS: NEURONTIN PO SCH ×2 (09:07→20:50)
[2019-05-14] MEDS: LEVAQUIN PO SCH (09:07)
[2019-05-14] MEDS: APRESOLINE PO SCH ×3 (09:07→20:50)
[2019-05-14] MEDS: ENTRESTO 24 MG-26 MG TABLET PO SCH ×2 (09:07→20:53)
[2019-05-14] MEDS: ICAR-C PO SCH (09:07)
[2019-05-14] MEDS: LASIX IV SCH (09:08)
[2019-05-14] MEDS: MIRALAX PO SCH ×2 (09:08→20:50)
[2019-05-14] MEDS: ISMO PO SCH ×3 (09:08→21:38)
[2019-05-14] MEDS: COLCRYS PO SCH (09:08)
[2019-05-14] MEDS: FOLIC ACID PO SCH (09:08)
[2019-05-14] MEDS: COREG PO SCH ×2 (09:08→20:50)
[2019-05-14 09:10] LABS: IRON SATURATION 14 %; TIBC 184 ug/dL; TOTAL IRON 25 ug/dL (53-167); UNBOUND IRON 159 ug/dL (112-346)
--- NOTE | 2019-05-14 09:12 | Diag Imaging Result Doc PS360 ---
EXAM: US ABDOMEN-COMPLETE 05/14/2019 HISTORY: evaluate for cirrhosis TECHNIQUE: Abdominal ultrasound COMMENT: The pancreatic head body and most the tail are within normal limits. The visualized portions of the aorta and inferior vena cava are within normal limits. The liver is unremarkable. There is a right pleural effusion. There is no evidence of biliary dilatation the common bile duct measuring less than 6 mm. There is antegrade flow in the portal vein. The kidneys are hyperechoic in appearance. There is apparent bilateral nephrolithiasis with small stones measuring less than 5 mm in size. There is a 4.5 cm cyst in the right kidney. The spleen is not enlarged. The gallbladder surgically absent. Compared to the previous examination of 11/06/2018 there is no apparent free fluid currently. IMPRESSION: Right pleural effusion. Medical renal disease. Bilateral nephrolithiasis. No evidence of obstructive uropathy. Electronically signed by Chan Abdi 05/14/2019 9:10 AM
--- NOTE | 2019-05-14 09:57 | Diag Imaging Result Doc PS360 ---
EXAM: US THORACENTESIS W/IMAGE GUIDE 05/14/2019 HISTORY: recurrent right pleural effusion TECHNIQUE: Right sided ultrasound-guided thoracentesis COMMENT: The risks and benefits of the procedure including the possibility of bleeding, infection, reaction to lidocaine, and pneumothorax were discussed with the patient and he agreed to the procedure. Following sterile preparation the skin and administration of 1% lidocaine to the skin and deeper soft tissues, the thoracentesis catheter was placed and subsequently 1100 mL of straw-colored fluid was drained. There are no immediate complications. IMPRESSION: Successful ultrasound-guided thoracentesis. Electronically signed by Chan Abdi 05/14/2019 9:54 AM
[2019-05-14 10:15] LABS: FERRITIN 244 ng/mL (30-400)
[2019-05-14] MEDS: ZAROXOLYN PO SCH (11:27)
--- NOTE | 2019-05-14 14:39 | PROGRESS NOTE ---
DATE: 05/14/2019 SUBJECTIVE: This morning, Mr. Stewart refers to be doing okay. No new complaints. He was just waiting for when the surgery will be done. There were two other family members in the room with him at the time of the encounter. OBJECTIVE: Vital Signs: Blood pressure is 149/77, pulse of 73, respirations 19, temperature 97.9 degrees, the patient was saturating 100% on room air. General: Mr. Stewart is a 63-year-old gentleman. He was in bed. No distress. HEENT: Mucosa is pink and moist. Anicteric. Acyanotic. Neck: Supple. There is still some JVD. Lungs: Air entry was bilaterally reduced. A few crackles posteriorly. Cardiovascular: Regular rate and rhythm with extrasystolic beats. No murmurs, no rubs, no gallops. Abdomen: Soft. Minimal edema on the lateral aspect of the abdominal wall. There is also some edema on the upper thighs. Extremities: Lower extremity did not have any edema. The left big toe continues to be necrotic with no draining. JOB PRESS FEEDER: The patient is awake, alert, and oriented. There was no focal neurological deficit. LABORATORY DATA: CBC is reviewed. There is still normocytic anemia. Rest of CBC parameters are within normal range. Chemistry shows a creatinine of 2.7, which is fairly the same baseline. Iron studies are within normal range, except for percent saturation which is on the lower end, and serum iron is also slightly low. Folate is normal. B12 is normal. The patient's I's and O's showed urine output was 1550. He is currently negative balance of 2825. ASSESSMENT: 1. Left great toe dry gangrene with osteomyelitis. The patient is pending surgical intervention once he is cardiovascularly stable. 2. Severe bilateral peripheral vascular disease. 3. Chronic kidney disease stage IIIB to IV. 4. Severe coronary artery disease with dilated ischemic cardiomyopathy. 5. Acute on chronic biventricular systolic heart failure with ejection fraction of 20%. The patient continues to be congested with positive jugular venous distention and crackles in the lungs. We are going to continue with the diuretic therapy. 6. Hypertension. Will continue with medications. 7. Gout. 8. Bilateral pleural effusion. The patient is status post right thoracentesis with about 1000 and 100 mL of straw-colored fluid drained this morning. In general, I think Mr. Stewart is doing remarkably well. He continues to have adequate diuresis on the intravenous diuretic. We are pending further recommendations from Cardiology as to when they would think that Mr. Stewart is clinically stable to undergo the surgery. cc: Sanjay Cronin MD
[2019-05-14] MEDS: LIPITOR PO SCH (20:50)
[2019-05-15] MEDS: HUMULIN R SUBQ SCH ×5 (06:35→21:22)
[2019-05-15 07:36] LABS: EOS% 1.6 % (0.0-10.0); HEMATOCRIT 27.6 % (42.0-52.0); HEMOGLOBIN 8.4 g/dL (14.0-18.0); LYMPH% 22.2 % (20.5-51.1); MCH 26.4 PG (27-31); MCHC 30.4 g/dL (33-37); MCV 86.8 FL (81-99); MONO# 0.81 X1000 (0.11-0.59); MONO% 12.8 % (1.7-9.3); MPV 12.7 FL (7.4-10.4); NEUT% 63.4 % (42.2-75.2); PLT 133 X1000 (130-400); RBC 3.18 XMIL (4.7-6.1); RDW 18.5 % (11.5-14.5); WBC 6.31 X1000 (4.8-10.8)
[2019-05-15 08:06] LABS: CREATININE 2.3 mg/dL (0.7-1.2); POTASSIUM 3.7 mmol/L (3.5-5.1)
[2019-05-15 08:07] LABS: ALBUMIN 2.8 g/dL (3.5-5.0); CALCIUM 8.6 mg/dL (8.8-10.2); PHOSPHORUS 3.3 mg/dL (2.7-4.5)
[2019-05-15] MEDS: NEURONTIN PO SCH ×2 (08:13→21:24)
[2019-05-15] MEDS: LASIX IV SCH (08:13)
[2019-05-15] MEDS: APRESOLINE PO SCH ×3 (08:13→21:24)
[2019-05-15] MEDS: MIRALAX PO SCH ×2 (08:13→21:23)
[2019-05-15] MEDS: COLCRYS PO SCH (08:13)
[2019-05-15] MEDS: ICAR-C PO SCH (08:14)
[2019-05-15] MEDS: ZAROXOLYN PO SCH (08:14)
[2019-05-15] MEDS: ENTRESTO 24 MG-26 MG TABLET PO SCH ×2 (08:14→21:23)
[2019-05-15] MEDS: LEVAQUIN PO SCH (08:14)
[2019-05-15] MEDS: COREG PO SCH ×2 (08:14→21:23)
[2019-05-15] MEDS: FOLIC ACID PO SCH (08:14)
[2019-05-15] MEDS: ISMO PO SCH ×3 (08:14→21:23)
[2019-05-15] MEDS: ALDACTONE PO SCH (08:14)
[2019-05-15] MEDS: PERCOCET-5 PO PRN ×2 (11:32→19:26)
--- NOTE | 2019-05-15 15:32 | PROGRESS NOTE ---
DATE: 05/15/2019 SUBJECTIVE: This morning Mr. Stewart refers to be doing fairly okay. He denies any new complaints. He is just waiting for surgery to be done. OBJECTIVE: Vital Signs: Blood pressure is 150/79, pulse 72, respirations 19, and temperature 98.2. The patient was saturating 100% on room air. General: Mr. Stewart is a 63-year-old gentleman. He was in bed in no distress. HEENT: Mucosa is pink and moist. Anicteric. Acyanotic. Neck: Supple. Positive JVD. Lungs: Good air entry bilaterally. A few crackles posteriorly. Cardiovascular: Regular rate and rhythm with occasional extrasystolic beat. No murmurs, no rubs, and no gallops. A paced beat is at the 5th intercostal space midclavicular line. GI: The abdomen is soft and distended. Some edema on the lateral aspect of the abdominal wall as well as the upper thighs. Extremities: No pedal edema. Some dark hyperpigmentation on the left lower extremity. The toes are all in sterile dressings. WEIGHER AND CRUSHER: The patient is awake, alert, and oriented. INPUT AND OUTPUT: Urine output was 3,200. The patient is currently a negative balance of 5,350. LABORATORY DATA: CBC shows anemia with a hemoglobin of 8.4. Creatinine is 2.3. The rest of the chemistry is unremarkable. BUN is 47 today. No imaging studies today. ASSESSMENT: 1. 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 The patient is on Levaquin and he is pending surgical intervention. 2. Severe bilateral peripheral vascular disease. We will continue with medications. 3. Chronic kidney disease stage IIIB to IV. 4. Severe coronary artery disease with dilated ischemic cardiomyopathy. 5. Acute on chronic biventricular systolic heart failure with an ejection fraction of 20%. The patient continues to be on diuretic therapy. 6. Hypertension, controlled. 7. History of gout. The patient is on colchicine. 8. Bilateral pleural effusions. The patient is status post thoracentesis; 1100 mL of straw color fluid was removed yesterday. We are going to repeat a chest x-ray tomorrow morning. 9. Dyslipidemia. We will continue with Lipitor. 10.Diabetes mellitus. We will continue with insulin regimen. So, in general I think Mr. Stewart is doing well. He still remains slightly congested. He is currently a negative balance of over 5,000. I think he is reaching euvolemic status. We are going to continue following up with further recommendations from Cardiology as to when he will be stable enough for the vascular surgery. cc: Sanjay Cronin MD MTDD
[2019-05-15] MEDS ORDERED: LASIX IV ONE (19:39)
--- NOTE | 2019-05-15 20:02 | PROGRESS NOTE ---
DATE: 05/15/2019 SUBJECTIVE: Patient denies chest discomfort or shortness of breath on room air. He had right- sided thoracentesis yesterday without incident. OBJECTIVE: Vital Signs: Blood pressure 133/66, heart rate 64, oxygen saturation 99% on room air. Neck: Jugular venous distention is evident, consistent with significantly elevated central venous pressure. Jugular distention is evident up to the angle of the jaw. Chest: Auscultation of the chest reveals diminished breath sounds in the right base, but clearly improved from previous exam. Cardiac: Regular rate and rhythm without appreciable murmur or gallop. Extremities: Demonstrate trace edema. LABORATORY DATA: Includes a white blood cell count of 6.31, hematocrit 27.6, hemoglobin 8.4, platelet count 133,000. Sodium 143, potassium 3.7, chloride 102, carbon dioxide 27, BUN 47 creatinine 2.3, glucose 140, albumin 2.8. IMPRESSION: 1. Acute on chronic systolic heart failure, biventricular, but right greater than left. Patient improving with diuresis, but still maintains signs of elevated central venous pressure. 2. Severe cardiomyopathy, with left ventricular ejection fraction approximately 20%. 3. Atherosclerotic coronary disease. 4. Hypertension. 5. Hyperlipidemia. 6. Extensive peripheral vascular disease. 7. Left great toe with suspected osteomyelitis and gangrene. 8. Chronic kidney disease, nearing stage IV. RECOMMENDATIONS: Continue to diuresis with intravenous Lasix. Goal is to optimize congestive heart failure on an inpatient basis prior to vascular surgery procedure some time next week, coupled with toe amputation. Left femoral to popliteal bypass procedure planned per Dr. Blandon. cc: Eldon Robins MD
[2019-05-15] MEDS: LIPITOR PO SCH (21:24)
[2019-05-16] MEDS: PERCOCET-5 PO PRN ×5 (02:09→23:43)
[2019-05-16] MEDS: HUMULIN R SUBQ SCH ×3 (06:22→16:40)
[2019-05-16] MEDS: HUMULIN 70/30 SUBQ SCH (06:48)
[2019-05-16] MEDS ORDERED: INSULIN PEN NEEDLES ONE (07:02)
--- NOTE | 2019-05-16 08:23 | PROGRESS NOTE ---
DATE: 05/16/2019 SUBJECTIVE: This morning Mr. Stewart refers to be doing well. No new complaints, except some cramps and pains in his feet. He also said he did not sleep well last night. OBJECTIVE: Vital signs: Blood pressure is 129/57, pulse of 74, respirations 20, temperature is 98.5 degrees. General exam: Mr. Stewart is a 63-year-old gentleman. He is in bed, not seemingly distressed. HEENT: Mucosa is pink and moist. Anicteric. Acyanotic. Neck: Supple. Positive JVD. Chest: Air entry is bilaterally reduced. A few crackles in the posterior lung rawls. Cardiovascular: Regular rate and rhythm. No murmurs, no rubs, no gallops. Poth beat is at 5th intercostal space, midclavicular line.. GI/Abdomen: Soft, distended, but nontender. Bowel sounds present. No edema on the lateral aspect of the abdominal wall and no edema on the upper thighs. Extremities: The left lower extremity has some dark hyperpigmentation of the foot. The left foot is in sterile dressing. LABS: Patient I's and O's: Urine output was 4200. The patient is currently negative balance of 8429. His weight is 218. This is from the 16, so there was no new weight since then. Glucose is 142. CURRENT MEDICATIONS: Have all been reviewed. No changes. ASSESSMENT: 1. 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 Patient is on Levaquin, and he is pending surgical intervention. 2. Severe bilateral peripheral vascular disease. We will continue with medications. 3. Chronic kidney disease, stage III-B to IV, stable. 4. Severe coronary artery disease with dilated ischemic cardiomyopathy. 5. Acute on chronic biventricular systolic heart failure with ejection fraction of 20%. The patient continues to be on diuretic therapy. He seems to be now getting to euvolemic status. 6. Hypertension, controlled. 7. History of gout. Patient continues to be on colchicine. 8. Diabetes mellitus. We will continue with the insulin regimen. 9. Dyslipidemia. Patient is on Lipitor. 10. Bilateral pleural effusions. The patient is status post thoracentesis 3 days ago. We will repeat a chest x-ray for tomorrow. PLAN: So, in general I think Mr. Stewart is doing a lot better. He is almost euvolemic at this point. We will continue with his current management plan, and hopefully be ready for surgery Saturday, a week. cc: Sanjay Cronin MD
[2019-05-16 08:26] LABS: HEMATOCRIT 25.7 % (42.0-52.0); HEMOGLOBIN 7.9 g/dL (14.0-18.0); MCH 27.4 PG (27-31); MCHC 30.7 g/dL (33-37); MCV 89.2 FL (81-99); MPV 11.9 FL (7.4-10.4); RBC 2.88 XMIL (4.7-6.1); RDW 18.6 % (11.5-14.5); WBC 6.24 X1000 (4.8-10.8)
[2019-05-16 09:13] LABS: ALBUMIN 2.8 g/dL (3.5-5.0); CALCIUM 8.2 mg/dL (8.8-10.2); CREATININE 2.5 mg/dL (0.7-1.2); PHOSPHORUS 3.5 mg/dL (2.7-4.5); POTASSIUM 3.6 mmol/L (3.5-5.1)
[2019-05-16] MEDS: MIRALAX PO SCH ×2 (09:14→20:46)
[2019-05-16] MEDS: APRESOLINE PO SCH ×3 (09:15→20:45)
[2019-05-16] MEDS: FOLIC ACID PO SCH (09:15)
[2019-05-16] MEDS: ISMO PO SCH ×3 (09:15→20:46)
[2019-05-16] MEDS: ICAR-C PO SCH (09:15)
[2019-05-16] MEDS: COLCRYS PO SCH (09:15)
[2019-05-16] MEDS: LEVAQUIN PO SCH (09:16)
[2019-05-16] MEDS: NEURONTIN PO SCH ×2 (09:16→20:45)
[2019-05-16] MEDS: ENTRESTO 24 MG-26 MG TABLET PO SCH ×2 (09:16→20:46)
[2019-05-16] MEDS: ZAROXOLYN PO SCH (09:16)
[2019-05-16] MEDS: ALDACTONE PO SCH (09:16)
[2019-05-16] MEDS: COREG PO SCH ×2 (09:16→20:46)
[2019-05-16] MEDS: LASIX IV SCH (09:17)
--- NOTE | 2019-05-16 17:06 | PROGRESS NOTE ---
DATE: 05/16/2019 SUBJECTIVE: Patient continues without shortness of breath or chest discomfort on room air. He does report some tendency for insomnia. OBJECTIVE: Vital Signs: Blood pressure 147/71, heart rate 74, oxygen saturation 100% on room air. Neck: Jugular venous distention is present consistent with central venous pressure of approximately 12 cm. Chest: Clear to auscultation bilaterally. Cardiac Exam: Reveals a regular rate and rhythm without appreciable murmur, rub or gallop. Extremities: Demonstrate trace edema. LABORATORY DATA: Includes white blood cell count of 6.24 hematocrit 25.7, platelet count 125. Sodium 143, potassium 3.6, chloride 100, carbon dioxide 29. BUN 45, creatinine 2.5, glucose 109. IMPRESSION: 1. Acute on chronic systolic heart failure, biventricular, but right greater than left. The patient improving with diuresis. Central venous pressure now demonstrating progressive decrease, but still mildly elevated. 2. Severe cardiomyopathy with left ventricular ejection fraction approximately 20%. 3. Atherosclerotic coronary disease. Patient continues without angina. 4. Hypertension. 5. Hyperlipidemia. 6. Extensive peripheral vascular disease. 7. Left great toe with suspected osteomyelitis and gangrene. 8. Chronic kidney disease nearing stage IV. RECOMMENDATIONS: Continue gradual diuresis at current rate. cc: Eldon Robins MD
[2019-05-16] MEDS: LIPITOR PO SCH (20:46)
[2019-05-16] MEDS: MELATONIN PO SCH (20:46)
[2019-05-17] MEDS: HUMULIN 70/30 SUBQ SCH (07:00)
[2019-05-17] MEDS: HUMULIN R SUBQ SCH ×4 (07:01→20:00)
--- NOTE | 2019-05-17 07:10 | Diag Imaging Result Doc PS360 ---
EXAM: CHEST-PORTABLE 05/17/2019 HISTORY: dyspnea TECHNIQUE: AP portable at 0551 COMMENT: There is apparent right pleural effusion. This appears slightly worse than on 05/14/2019. There is basilar atelectasis on the right. IMPRESSION: Worsened right pleural effusion. Electronically signed by Chan Abdi 05/17/2019 7:08 AM
[2019-05-17] MEDS: MIRALAX PO SCH ×2 (09:53→19:59)
[2019-05-17] MEDS: ENTRESTO 24 MG-26 MG TABLET PO SCH ×2 (09:55→19:54)
[2019-05-17] MEDS: NEURONTIN PO SCH ×2 (09:55→19:54)
[2019-05-17] MEDS: PERCOCET-5 PO PRN ×4 (09:55→23:43)
[2019-05-17] MEDS: LASIX IV SCH (09:55)
[2019-05-17] MEDS: COREG PO SCH ×2 (09:56→19:55)
[2019-05-17] MEDS: APRESOLINE PO SCH ×3 (09:56→19:55)
[2019-05-17] MEDS: ALDACTONE PO SCH (09:56)
[2019-05-17] MEDS: COLCRYS PO SCH (09:56)
[2019-05-17] MEDS: ICAR-C PO SCH (09:56)
[2019-05-17] MEDS: FOLIC ACID PO SCH (09:56)
[2019-05-17] MEDS: ISMO PO SCH ×3 (09:56→19:54)
[2019-05-17] MEDS: LEVAQUIN PO SCH (09:57)
[2019-05-17] MEDS: ZAROXOLYN PO SCH (09:57)
--- NOTE | 2019-05-17 12:25 | PROGRESS NOTE ---
DATE: 05/17/2019 SUBJECTIVE: The patient denies shortness of breath or chest discomfort on room air. OBJECTIVE: Blood pressure 115/55, heart rate 78, oxygen saturation 97% on room air. Jugular venous distention is no longer apparent. Auscultation of the chest reveals diminished breath sounds in the right base posteriorly. Cardiac Examination: Reveals a regular rate and rhythm without appreciable murmur or gallop. Extremities: Without edema. Repeat chest x-ray, portable, today reveals right pleural effusion which is less than x-ray demonstrated on admission. IMPRESSION: 1. Acute on chronic systolic heart failure, biventricular, but right greater than left. Patient has progressively improved with diuresis and thoracentesis on the right. Central venous pressure now appears to be normal. 2. Severe cardiomyopathy with left ventricular ejection fraction of approximately 20%. 3. Atherosclerotic coronary artery disease. Patient continues without angina. 4. Severe peripheral vascular disease. 5. Left great toe with suspected osteomyelitis and gangrene. 6. Hypertension. 7. Hyperlipidemia. 8. Chronic kidney disease, nearing stage IV. RECOMMENDATIONS: 1. Diurese more slowly to avoid prerenal azotemia. 2. Patient approaching maximal benefit from "tune-up" preoperatively. His perioperative cardiac risk for vascular surgery and toe amputation is moderate but is probably as ideal as possible. It would appear best to not discharge him prior to surgery as I suspect he is fairly noncompliant with his diet as evidenced by the basket of goodies next to his bed. cc: Eldon Robins MD
--- NOTE | 2019-05-17 13:03 | PROGRESS NOTE ---
DATE: 05/17/2019 SUBJECTIVE: This morning, Mr. Stewart refers to be doing fairly okay. Denies any new complaints. OBJECTIVE: Vital Signs: Blood pressure is 115/55, pulse of 78, respirations 19, temperature is 98.9 degrees, the patient is saturating 97% on room air. General: Mr. Stewart is a 63-year-old gentleman. He is in bed, does not seems to be in any distress. HEENT: Mucosa is pink and moist. Anicteric. Acyanotic. Neck: Supple. Positive JVD. Chest: Air entry is bilaterally reduced. There are still some crackles in the posterior lung rawls, more so on the right side. Cardiovascular: Regular rate and rhythm. Abdomen: Soft, distended, but nontender. Bowel sounds present. Extremities: No pedal edema. The left lower extremity is in sterile dressing. There is some dark hyperpigmentation. VIDEO OPERATOR: The patient is awake, alert, and oriented. The patient's I's and O's show urine output 1675. The patient is currently total negative balance of 9214. ASSESSMENT: 1. 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 The patient is on Levaquin. 2. Severe bilateral peripheral vascular disease. 3. Chronic kidney disease stage IIIB to IV. 4. Severe coronary artery disease with dilated ischemic cardiomyopathy. 5. Acute on chronic biventricular systolic heart failure, ejection fraction of 20%. The patient is on diuretic therapy. He is currently negative balance. 6. Hypertension, controlled. 7. History of gout. 8. Diabetes mellitus, on stable insulin regimen. 9. Dyslipidemia. 10. Bilateral pleural effusions. The patient is status post thoracentesis. A repeat chest x-ray this morning seems to suggest that the pleural effusion is reaccumulating. cc: Sanjay Cronin MD
[2019-05-17] MEDS: LIPITOR PO SCH (19:54)
[2019-05-17] MEDS: MELATONIN PO SCH (19:55)
[2019-05-18] MEDS: COREG PO SCH ×3 (05:34→20:21)
[2019-05-18] MEDS: MELATONIN PO SCH ×2 (05:34→20:23)
[2019-05-18] MEDS: LIPITOR PO SCH ×2 (05:34→20:21)
[2019-05-18] MEDS: APRESOLINE PO SCH ×4 (05:34→20:24)
[2019-05-18] MEDS: ISMO PO SCH ×4 (05:34→20:21)
[2019-05-18] MEDS: ENTRESTO 24 MG-26 MG TABLET PO SCH ×3 (05:35→20:22)
[2019-05-18] MEDS: NEURONTIN PO SCH ×3 (05:35→20:22)
[2019-05-18] MEDS: HUMULIN R SUBQ SCH ×5 (06:24→20:25)
[2019-05-18] MEDS: HUMULIN 70/30 SUBQ SCH (06:25)
[2019-05-18 07:14] LABS: BASO# 0.01 X1000 (0.0-0.2); BASO% 0.1 % (0.0-0.8); EOS# 0.07 X1000 (0.0-0.7); EOS% 0.9 % (0.0-10.0); HEMATOCRIT 26.8 % (42.0-52.0); HEMOGLOBIN 8.1 g/dL (14.0-18.0); LYMPH# 1.44 X1000 (1.2-3.4); LYMPH% 18.1 % (20.5-51.1); MCH 26.6 PG (27-31); MCHC 30.2 g/dL (33-37); MCV 88.2 FL (81-99); MONO# 0.96 X1000 (0.11-0.59); MPV 12.1 FL (7.4-10.4); NEUT# 5.49 X1000 (1.4-6.5); NEUT% 68.9 % (42.2-75.2); PLT 145 X1000 (130-400); RBC 3.04 XMIL (4.7-6.1); RDW 18.9 % (11.5-14.5); WBC 7.97 X1000 (4.8-10.8)
[2019-05-18 07:51] LABS: ALBUMIN 2.5 g/dL (3.5-5.0); CALCIUM 8.5 mg/dL (8.8-10.2); CREATININE 3.1 mg/dL (0.7-1.2); PHOSPHORUS 3.4 mg/dL (2.7-4.5); POTASSIUM 3.8 mmol/L (3.5-5.1)
[2019-05-18] MEDS: MIRALAX PO SCH ×2 (08:46→23:17)
[2019-05-18] MEDS: PERCOCET-5 PO PRN ×3 (08:46→20:23)
[2019-05-18] MEDS: FOLIC ACID PO SCH (08:47)
[2019-05-18] MEDS: COLCRYS PO SCH (08:47)
[2019-05-18] MEDS: ALDACTONE PO SCH (08:47)
[2019-05-18] MEDS: ICAR-C PO SCH (08:48)
[2019-05-18] MEDS: ZAROXOLYN PO SCH (08:48)
[2019-05-18] MEDS: LEVAQUIN PO SCH (08:48)
--- NOTE | 2019-05-18 10:28 | Diag Imaging Result Doc PS360 ---
EXAM: CHEST-2 VIEWS HISTORY: hypoxia TECHNIQUE: Chest two views COMPARISON: 05/17/2019 FINDINGS: There is a small right pleural effusion which remains. Atelectasis versus infiltrate in the right base persist. The heart is enlarged. The left lung remains clear. IMPRESSION: Stable chest. Electronically signed by Juan Henderson 05/18/2019 10:26 AM
--- NOTE | 2019-05-18 16:13 | PROGRESS NOTE ---
DATE: 05/18/2019 SUBJECTIVE: This morning Mr. Stewart refers to be doing well. Denies any new complaints. He is waiting for surgery evaluation for possible amputation. OBJECTIVE: Vital signs: Blood pressure is 136/63, pulse is 75 respirations 20, temperature 98.2 degrees. General: Mr. Stewart is a 63 years gentleman. He is in bed, no distress. HEENT: Mucosa is pink and moist. Anicteric. Acyanotic. Neck: Supple. No jugular venous distention. Chest: Air entry is bilaterally reduced. There are still some crackles posteriorly. Cardiovascular: Regular rate and rhythm. No murmurs. Abdomen: Soft, nontender. Bowel sounds present. Extremities: No pedal edema. The left lower extremity is still in sterile dressing. 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 DATA: The patient I's and O's: Urine output was 2020. Patient is currently negative balance of 12,309. His current weight is 181, patient was 218 on admission. This is 37 pounds weight loss during this hospitalization. A chest x-ray this morning shows small right pleural effusion which remains. There is atelectasis versus infiltrate in the right base. ASSESSMENT: 1. 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 Patient is on Levaquin and he is pending surgical intervention. 2. Severe bilateral peripheral vascular disease. Patient is on medications. 3. Chronic kidney disease stage IIIB to 4. Creatinine is stable. 4. Severe coronary artery disease with dilated ischemic cardiomyopathy. 5. Fluid overload on presentation secondary to acute on chronic biventricular systolic heart failure with ejection fraction of 20%. The patient has diuresed very adequately. He is currently negative balance with about 37 pounds weight loss during this hospitalization. I think he is now well euvolemic so I have changed his IV diuretics to p.o. 6. Hypertension controlled. 7. History of gout. Patient continues to be on colchicine, not in any flare. 8. Diabetes mellitus controlled. PLAN: So in general I think Mr. Stewart is euvolemic. He has lost about 37 pounds during this hospital course. He is currently negative balance over 12,000 mL of fluid. He is still pending surgery evaluation and determination as to when intervention will be done. cc: Sanjay Cronin MD
[2019-05-18] MEDS: LASIX PO SCH (20:23)
[2019-05-18] MEDS: VITAMIN D PO SCH (23:18)
[2019-05-19] MEDS: PERCOCET-5 PO PRN ×4 (04:32→21:19)
[2019-05-19] MEDS: HUMULIN R SUBQ SCH ×4 (06:26→21:20)
[2019-05-19] MEDS: HUMULIN 70/30 SUBQ SCH (06:29)
[2019-05-19 07:45] LABS: HEMATOCRIT 26.1 % (42.0-52.0); MCH 27.3 PG (27-31); MCHC 30.7 g/dL (33-37); MCV 89.1 FL (81-99); MPV 11.9 FL (7.4-10.4); RBC 2.93 XMIL (4.7-6.1); RDW 18.7 % (11.5-14.5); WBC 8.67 X1000 (4.8-10.8)
[2019-05-19 08:06] LABS: ALBUMIN 2.6 g/dL (3.5-5.0); CALCIUM 9.3 mg/dL (8.8-10.2); PHOSPHORUS 3.3 mg/dL (2.7-4.5)
[2019-05-19] MEDS: LASIX PO SCH (08:10)
[2019-05-19] MEDS: NEURONTIN PO SCH ×2 (08:10→21:20)
[2019-05-19] MEDS: ALDACTONE PO SCH (08:10)
[2019-05-19] MEDS: ICAR-C PO SCH (08:10)
[2019-05-19] MEDS: FOLIC ACID PO SCH (08:10)
[2019-05-19] MEDS: APRESOLINE PO SCH ×3 (08:10→21:19)
[2019-05-19] MEDS: COLCRYS PO SCH (08:10)
[2019-05-19] MEDS: ZAROXOLYN PO SCH (08:10)
[2019-05-19] MEDS: ISMO PO SCH ×3 (08:10→21:19)
[2019-05-19] MEDS: LEVAQUIN PO SCH (08:10)
[2019-05-19] MEDS: COREG PO SCH ×2 (08:10→21:19)
[2019-05-19] MEDS: ENTRESTO 24 MG-26 MG TABLET PO SCH ×2 (08:11→21:19)
[2019-05-19] MEDS: MIRALAX PO SCH ×2 (08:11→21:18)
--- NOTE | 2019-05-19 18:17 | PROGRESS NOTE ---
DATE: 05/19/2019 SUBJECTIVE: Patient denies shortness of breath or chest discomfort on room air. He still reports left foot pain when it is elevated that seems to be better when it is dependent. OBJECTIVE: Vital Signs: Blood pressure 119/52, heart rate 76, oxygen saturation 100% on room air. Jugular venous distention is estimated to be around 10 cm. Chest: Clear to auscultation bilaterally. Cardiac: Reveals a regular rate and rhythm without appreciable murmur or gallop. Extremities: Appear without edema. LABORATORY DATA: Includes white blood cell count 8.67, hematocrit 26.1, hemoglobin 8.0, platelet count 140,000. Sodium 139, potassium 4.0, chloride 99, carbon dioxide 26, BUN 50, creatinine 3.0, glucose 122. IMPRESSION: 1. Acute on chronic systolic heart failure, biventricular but right greater than left. Patient has progressively improved with diuresis and thoracentesis on the right. He is near euvolemic at this point. 2. Severe cardiomyopathy with left ejection fraction of 20%. 3. Atherosclerotic coronary disease. Patient continues without angina. 4. Severe peripheral vascular disease. 5. Left great toe with suspected osteomyelitis and gangrene. 6. Hypertension. 7. Hyperlipidemia. 8. Chronic kidney disease nearing stage 4. RECOMMENDATIONS: 1. Continue oral Lasix daily and try maintain current volume status. 2. The patient probably has reached maximal benefit from "tune-up" preoperatively. His perioperative cardiac risk for vascular surgery and toe amputation is moderate but is probably as ideal as possible at this point. It would appear best not to discharge him prior to surgery as I suspect he is fairly noncompliant with his diet and would as before have re- emergence of volume overload. cc: Eldon Robins MD
--- NOTE | 2019-05-19 18:41 | PROGRESS NOTE ---
DATE: 05/19/2019 INTERVAL HISTORY: No acute events overnight. SUBJECTIVE: He is denying any new complaints. He states he is awaiting for surgical team evaluation for amputation, which he was supposed to get outpatient. Currently, he is denying any chest pain or shortness of breath. He is complaining of pain in his left foot. He has not had any fever or chills. I discussed with him about reconsulting surgical team. CURRENT VITALS: Temperature 98.4 degrees, pulse 72, respiratory rate 18, blood pressure 120/55, saturating 100% on room air. PHYSICAL EXAMINATION: General: Does not appear in acute distress. Mouth: Oral cavity is moist. Lungs: He has decreased air entry with inspiratory crackles bilateral infrascapular region. Cardiovascular: S1, S2 normal. No murmur, rub, or gallop. Abdomen: Soft, nontender. He has bilateral lower extremity edema. Left foot has gangrenous changes affecting all toes, especially the big toe. However, the other 2 are hard to examine currently because of Betadine, but left great toe is definitely gangrenous with osteomyelitis. LABS: Suggestive of normocytic anemia, chronic kidney disease stage 4. Microbiology: No new data. IMAGING: Chest x-ray on the had small right pleural effusion which remains. ASSESSMENT AND PLAN: 1. 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 Repeat blood cultures on April 20 were negative. Continue oral Levaquin which was sensitive against Providencia and re-consult surgical team for definitive treatment. He did have prior history of peripheral arterial disease, which is contributing to his dry gangrene, which is contributing to his ischemic necrosis of the great toe. 2. Acute on chronic biventricular systolic heart failure with ejection fraction of 20 to 25 percent. He has been -12 L since admission with almost 18 L of urine output. I will continue his current regimen of oral furosemide, metolazone, spironolactone, as well as carvedilol, Entresto, isosorbide and hydralazine. He did have prior history of recurrent right pleural effusion and cocaine abuse, and he was thought not an ideal candidate for automated implantable cardioverter-defibrillator. 3. Others. Continue atorvastatin for hyperlipidemia; colchicine for gout; gabapentin and Percocet for chronic pain; MiraLAX to avoid constipation; folic acid for chronic normocytic anemia, likely related to chronic kidney disease. He is also status post 1 unit of packed red blood cells. DISPOSITION: Awaiting Surgery recommendation. Based on that, he may need surgical intervention of his left great toe gangrene inpatient versus outpatient. Plan of care discussed with him. His questions have been answered. cc: Jaime Greene MD
[2019-05-19] MEDS: LIPITOR PO SCH (21:19)
[2019-05-19] MEDS: MELATONIN PO SCH (21:20)
[2019-05-20] MEDS: PERCOCET-5 PO PRN ×2 (04:29→14:57)
[2019-05-20] MEDS: HUMULIN R SUBQ SCH ×4 (06:17→20:49)
[2019-05-20] MEDS: HUMULIN 70/30 SUBQ SCH (06:19)
[2019-05-20] MEDS: ALDACTONE PO SCH (08:46)
[2019-05-20] MEDS: APRESOLINE PO SCH ×3 (08:46→20:44)
[2019-05-20] MEDS: ISMO PO SCH ×3 (08:46→20:44)
[2019-05-20] MEDS: NEURONTIN PO SCH ×2 (08:46→20:48)
[2019-05-20] MEDS: FOLIC ACID PO SCH (08:46)
[2019-05-20] MEDS: ICAR-C PO SCH (08:46)
[2019-05-20] MEDS: ZAROXOLYN PO SCH (08:47)
[2019-05-20] MEDS: LASIX PO SCH (08:47)
[2019-05-20] MEDS: LEVAQUIN PO SCH (08:47)
[2019-05-20] MEDS: COLCRYS PO SCH (08:47)
[2019-05-20] MEDS: COREG PO SCH ×2 (08:47→20:44)
[2019-05-20] MEDS: MIRALAX PO SCH ×3 (08:47→20:56)
[2019-05-20] MEDS: ENTRESTO 24 MG-26 MG TABLET PO SCH ×2 (08:47→20:44)
--- NOTE | 2019-05-20 18:31 | PROGRESS NOTE ---
DATE: 05/20/2019 INTERVAL HISTORY: No acute events overnight. SUBJECTIVE: He is feeling fine. I had a discussion with the surgical team and I was informed that there is no OR space until Saturday. The patient denies new complaints, except pain at the foot. VITALS: Temperature 98.3 degrees, pulse 73, respiratory 19, blood pressure 130/50 saturating 100% room air. PHYSICAL EXAMINATION: General: Does not appear acute previous acute distress. Oral cavity is moist. Lungs: Decreased air entry with inspiratory crackles bilateral infrascapular region, more pronounced on right. Cardiovascular: S1, S2 normal. No murmur or gallop. Abdomen: Soft, nontender. Extremities: Bilateral lower extremity edema. He his left foot has gangrenous changes especially the big toe. FLUIDS: Input and output suggests negative 900 mL, -1 0.2 L today. LABS: No CBC or BMP today. No microbiological or new imaging data. Chest x-ray on May 18 had loculated right-sided pleural effusion which is chronic. ASSESSMENT AND PLAN: 1. 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 Repeat blood cultures on April 20 were negative. Continue oral Levaquin and appreciate surgery recommendations. Likely he is and is to undergo amputation on May 22 due to OR availability for his left big toe dry gangrene. 2. Acute on chronic biventricular systolic heart failure with ejection fraction of 20 to 25 percent. Continue oral Lasix, metolazone, spironolactone, as well as carvedilol, Entresto, isosorbide, hydralazine. He has a history of recurrent right-sided pleural effusion. Currently, he is breathing well on room air. 3. Others. Continue atorvastatin for hyperlipidemia; colchicine for gout; gabapentin and Percocet for chronic pain; MiraLAX to avoid constipation; folic acid for chronic anemia due to chronic kidney disease. He is status post 1 unit packed red blood cells. DISPOSITION: Awaiting surgical plan. Plan of care discussed with him. His questions have been answered. He previously has been noncompliant with lot of his medications and diet and discharging him home for outpatient surgery may not be a viable option since it has been a challenge managing his multiple cardiac medical conditions outpatient, and there is a possibility that before surgery he would end up with decompensated heart failure again. cc: Jaime Greene MD
[2019-05-20] MEDS ORDERED: OXY IR PO PRN (19:44)
[2019-05-20] MEDS: OXY IR PO PRN (20:43)
[2019-05-20] MEDS: LIPITOR PO SCH (20:44)
[2019-05-20] MEDS: MELATONIN PO SCH (20:44)
[2019-05-21] MEDS: HUMULIN R SUBQ SCH ×4 (06:29→22:47)
[2019-05-21] MEDS: HUMULIN 70/30 SUBQ SCH (06:29)
[2019-05-21] MEDS: OXY IR PO PRN ×3 (06:48→22:49)
[2019-05-21 08:03] LABS: BASO# 0.01 X1000 (0.0-0.2); BASO% 0.1 % (0.0-0.8); EOS% 1.3 % (0.0-10.0); HEMATOCRIT 24.6 % (42.0-52.0); HEMOGLOBIN 7.6 g/dL (14.0-18.0); LYMPH# 1.52 X1000 (1.2-3.4); LYMPH% 19.8 % (20.5-51.1); MCH 26.9 PG (27-31); MCHC 30.9 g/dL (33-37); MCV 86.9 FL (81-99); MONO# 0.94 X1000 (0.11-0.59); MONO% 12.3 % (1.7-9.3); MPV 11.9 FL (7.4-10.4); NEUT# 5.09 X1000 (1.4-6.5); NEUT% 66.5 % (42.2-75.2); PLT 127 X1000 (130-400); RBC 2.83 XMIL (4.7-6.1); RDW 18.7 % (11.5-14.5); WBC 7.66 X1000 (4.8-10.8)
[2019-05-21 08:35] LABS: CALCIUM 8.6 mg/dL (8.8-10.2); CREATININE 3.2 mg/dL (0.7-1.2); POTASSIUM 4.2 mmol/L (3.5-5.1)
[2019-05-21] MEDS: MIRALAX PO SCH ×2 (09:31→22:51)
[2019-05-21] MEDS: ENTRESTO 24 MG-26 MG TABLET PO SCH ×2 (09:32→22:49)
[2019-05-21] MEDS: LASIX PO SCH (09:33)
[2019-05-21] MEDS: ICAR-C PO SCH (09:33)
[2019-05-21] MEDS: LEVAQUIN PO SCH (09:33)
[2019-05-21] MEDS: FOLIC ACID PO SCH (09:33)
[2019-05-21] MEDS: NEURONTIN PO SCH ×3 (09:33→22:50)
[2019-05-21] MEDS: APRESOLINE PO SCH ×3 (09:33→22:49)
[2019-05-21] MEDS: COREG PO SCH ×2 (09:33→22:49)
[2019-05-21] MEDS: ISMO PO SCH ×3 (09:34→22:51)
[2019-05-21] MEDS: ZAROXOLYN PO SCH (09:34)
[2019-05-21] MEDS: ALDACTONE PO SCH (09:34)
[2019-05-21] MEDS: COLCRYS PO SCH (09:34)
--- NOTE | 2019-05-21 14:09 | GENERAL SURGERY PROGRESS NOTE ---
DATE: 05/21/2019 SUBJECTIVE: Doing okay. No issues. No fevers. No tachycardia. He is on room air. He is breathing comfortably. His foot dressing is in place. Blood pressure 126/52.General: He is alert. Integument warm, dry. He has stable lower extremity edema. White count 6, hematocrit 24, platelets 127,000. Creatinine is 3.2. This is near his baseline. Glucose has been as high as 170s and as low as 111. ProBNP on the was greater than 35,000. ASSESSMENT AND PLAN: This is a 63-year-old gentleman who has chronic congestive heart failure, volume overload, chronic kidney disease, peripheral vascular disease with SFA occlusion, dry necrosis of his foot, and ischemic rest pain. According to his pain coordinator, he is as optimized cardiovascularly as he can get. He remains at moderate risk for vascular procedure, but he has threatened to his limb with tissue loss and rest pain and we through extensive discussion have elected to proceed with this tomorrow with the plans for femoral to above knee popliteal bypass with amputation of his gangrenous toes. We will make him n.p.o. at midnight. cc: Elke Blandon MD
[2019-05-21] MEDS ORDERED: OXY IR PO ONE (19:39)
--- NOTE | 2019-05-21 20:33 | PROGRESS NOTE ---
DATE: 05/21/2019 INTERVAL HISTORY: No acute events overnight. In the morning time, he did have epistaxis; however, he did not follow instructions about lying down and compressing his nose, and he kept on bleeding. SUBJECTIVE: At the time of my evaluation, he states that he is hurting like crazy in his foot. We discussed about surgery planned tomorrow. VITALS: Temperature of 98.4. His pulse was 71, respiratory rate of 14, blood pressure 120/53, saturating 96% on room air. PHYSICAL EXAMINATION: General: Not in any acute distress. Input and Output: Input and output suggest -2 L yesterday. HEENT: Oral cavity is moist. Lungs: Air entry bilaterally equal. No wheezes or rhonchi. He does have inspiratory crackles in the bilateral infrascapular regions, more pronounced on the right. Cardiovascular: S1, S2 normal. No murmur, rub, or gallop. Extremities: Bilateral lower extremity edema. Left foot has gangrenous changes affecting the big toe. LABS: Suggestive of normocytic anemia, platelets of 127. Microbiology: No new data. IMAGING: No new data. ASSESSMENT AND PLAN: 1. 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 Continue oral Levaquin until final surgery. Patient to undergo a [id number] bypass with amputation of gangrenous toes tomorrow. Continue oxycodone, gabapentin for pain. 2. Acute on chronic biventricular systolic heart failure with ejection fraction of 25%. Continue oral Lasix, metolazone, spironolactone, carvedilol, Crestor, isosorbide, and hydralazine. He has had a recurrent right pleural effusion requiring thoracentesis because of his heart failure. Currently, he is breathing well on room air. 3. Orders: Continue atorvastatin for hyperlipidemia, colchicine for gout, MiraLAX to avoid constipation, folic acid for chronic anemia due to chronic kidney disease. He is status post 1 unit PRBCs. 4. Disposition: Awaiting surgery tomorrow. Plan of care discussed with him. His questions have been answered. cc: Jaime Greene MD
[2019-05-21] MEDS: LIPITOR PO SCH (22:49)
[2019-05-21] MEDS: MELATONIN PO SCH (22:49)
--- NOTE | 2019-05-21 23:41 | CARDIOLOGY PROGRESS NOTE ---
DATE: 05/21/2019 SUBJECTIVE: The patient denies shortness of breath or chest discomfort on room air. He complains of left foot pain, which seems to be better when it is in dependent position. OBJECTIVE: Blood pressure 126/53, heart rate 71. Oxygen saturation 96% on room air.. Jugular venous distention is present, suggesting elevated central venous pressure of approximately 10 cm. Chest is clear to auscultation bilaterally. Cardiac exam reveals a regular rate and rhythm without appreciable murmur or gallop. Extremities are without edema. LABORATORY DATA: WBC 7.66, HCT 24.6, Hgb 7.6, platelets 127, sodium 140, potassium 4.2, chloride 103, carbon dioxide 21, glucose 111, BUN 58, creatinine 3.2 IMPRESSION: 1. Zeqkl-mi-pxfqqhy systolic heart failure, biventricular but predominantly right-sided. The patient manifests signs of mild volume excess. 2. Severe cardiomyopathy with LVEF 20%.. 3. Coronary artery disease. Patient continues without angina. 4. Severe peripheral vascular disease. 5. Osteomyelitis/gangrene of left great toe. 6. Hypertension 7. Chronic kidney disease. RECOMMENDATIONS: 1. Continue to diurese. 2. Patient near maximum benefit from diuresis preoperatively. Moderate perioperative cardiac risk. cc: Eldon Robins MD [facility]
[2019-05-22] MEDS ORDERED: KEFZOL 1 GM/D5W 1 GM/50 ML IVPB ONE (06:37)
[2019-05-22] MEDS ORDERED: PAPAVERINE ONE (06:41)
[2019-05-22] MEDS ORDERED: KEFZOL ONE (06:41)
[2019-05-22] MEDS ORDERED: NS 1,000 ML ONE (06:41)
[2019-05-22] MEDS ORDERED: HEPARIN ONE (06:41)
[2019-05-22] MEDS ORDERED: NITROGLYCERIN 50 MG/D5W 0 MG/0 ML IV.SOLN ONE (06:53)
[2019-05-22] MEDS ORDERED: VERSED ONE (07:06)
[2019-05-22] MEDS ORDERED: PROTAMINE SULFATE ONE ×2 (09:44→09:52)
[2019-05-22] MEDS ORDERED: THROMBIN-JMI ONE (10:07)
[2019-05-22] MEDS ORDERED: MORPHINE ONE (11:56)
[2019-05-22 11:57] LABS: I-STAT BE 1 mmoll (-2-3); I-STAT GLUCOSE 188 mg/dL (70-105); I-STAT HEMOGLOBIN 8.5 g/dL (11.5-17.5); I-STAT K 4.3 mmoll (3.5-4.9); I-STAT SODIUM 139 mmoll (138-146); I-STAT TCO2 26 mmoll (23-27); I-STAT pH 7.427 (7.350-7.450)
[2019-05-22 11:57] LABS: I-STAT BE 5 mmoll (-2-3); I-STAT GLUCOSE 145 mg/dL (70-105); I-STAT HEMOGLOBIN 8.2 g/dL (11.5-17.5); I-STAT K 4.1 mmoll (3.5-4.9); I-STAT SODIUM 139 mmoll (138-146); I-STAT TCO2 32 mmoll (23-27); I-STAT pH 7.381 (7.350-7.450)
[2019-05-22] MEDS ORDERED: ASPIRIN PO ONE (12:46)
[2019-05-22] MEDS: LEVAQUIN PO SCH (13:41)
[2019-05-22] MEDS: OXY IR PO PRN (13:41)
[2019-05-22 14:16] LABS: URINE SOURCE CATH
[2019-05-22 14:18] LABS: BILIRUBIN URINE NEGATIVE (NEGATIVE); BLOOD URINE MODERATE (NEGATIVE); COLOR YELLOW; GLUCOSE URINE NEGATIVE (NEGATIVE); KETONE URINE NEGATIVE (NEGATIVE); LEUKOCYTES URINE NEGATIVE (NEGATIVE); NITRITE URINE NEGATIVE (NEGATIVE); PROTEIN URINE 300 mg/dL (NEGATIVE); SP GRAVITY URINE 1.015; TURBIDITY URINE HAZY (CLEAR); UROBILINOGEN URINE NORMAL (NORMAL)
[2019-05-22 14:31] LABS: UR EPITHELIAL CELLS <10 /HPF (<10); URINE BACTERIA NEGATIVE /HPF; URINE WBC <10 /HPF (<10)
[2019-05-22 15:06] LABS: HEMATOCRIT 26.5 % (42.0-52.0); HEMOGLOBIN 8.4 g/dL (14.0-18.0)
[2019-05-22] MEDS: TYLENOL PO SCH ×2 (16:10→23:04)
[2019-05-22] MEDS: APRESOLINE PO SCH (16:11)
[2019-05-22] MEDS: DILAUDID IV PRN (16:11)
--- NOTE | 2019-05-22 17:08 | PROGRESS NOTE ---
DATE: 05/22/2019 INTERVAL HISTORY: Mr. Stewart underwent amputation of toe procedure today which he tolerated well so far. Looks like he received about 4 units of blood transfusion. He also underwent looks like a femoropopliteal bypass surgery at the same time, however details are not clear to me at the moment. His operative note is pending. I am seeing patient in ICU. SUBJECTIVE: Patient is currently looks like under influence of some of the anesthetic medications and pain medication and he has intermittent episodes of confusion, however he is alert and he is answering all questions appropriately. His mother and family is at bedside right now. Currently vitals temperature of 98.4 degrees, his pulse is 65, respiratory rate 14, blood pressure 110/57, saturating 99% on 2 L nasal cannula. PHYSICAL EXAMINATION: General: He does not appear in acute distress. Oral cavity is moist. He has decreased air entry right inframammary region. No wheeze, rhonchi. Mild inspiratory crackles. S1, S2 normal. No murmur, rub or gallop. Abdomen: Soft, nontender. He has edema affecting bilateral lower extremity. He has left foot which is in bandage. He has a bandage on left medial thigh as well. He also has A line in left upper extremity. He is moving his toes bilaterally. LABS: His hemoglobin is 8.4 right now. His BMP is pending for tomorrow. ASSESSMENT AND PLAN: 1. 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 Continue Levaquin orally. Patient probably underwent a femoral to popliteal bypass with amputation of gangrenous toe today. The operative note detail is pending. Continue oxycodone, gabapentin and IV hydromorphone for pain. 2. Acute on chronic biventricular systolic heart failure with ejection fraction of 25%. Continue oral Lasix, metolazone, spironolactone, carvedilol, Crestor, isosorbide, hydralazine. He has recurrent right pleural effusion requiring thoracentesis because of heart failure. Currently he is breathing well on room air. 3. Others. Continue atorvastatin for hyperlipidemia, colchicine for gout, MiraLAX to avoid constipation, folic acid for chronic anemia due to chronic kidney disease, status post 1 unit PRBC. DISPOSITION: I will continue monitor patient in ICU for tonight. Plan of care discussed with him, his family members at bedside. I discussed with them about his clinical condition. I discussed with him about his poor heart function and kidney function and poor overall health and answered all of the questions. TIME SPENT: More than 30 minutes of critical care time was spent in taking care of this patient. cc: Jaime Greene MD MTDD
--- NOTE | 2019-05-22 18:04 | CARDIOLOGY PROGRESS NOTE ---
DATE: 05/22/2019 SUBJECTIVE: Mr. Stewart had amputation of left great toe and left femoral-popliteal bypass earlier today. He has received blood transfusion. He is now in the intensive care unit postoperatively. He denies any chest pain or shortness of breath. OBJECTIVE: Blood pressure 92/61, heart rate 67, oxygen saturation 98% on nasal cannula oxygen. Jugular venous distention suggests borderline-elevated central venous pressure.Chest: Clear to auscultation bilaterally. Cardiac: Regular rate and rhythm without appreciable murmur or gallop. Extremities: Without edema. LABORATORY DATA: Includes a hematocrit 26.5, hemoglobin 8.4. Magnesium 1.6. IMPRESSION: 1. Chronic systolic heart failure. Reasonably stable in immediate postoperative period. 2. Severe cardiomyopathy with left ejection fraction of 20%. 3. Atherosclerotic coronary disease. Patient continues without angina. 4. Severe peripheral vascular disease. 5. Osteomyelitis/gangrene of left great toe. Patient is now status post amputation and left uwtiqhe-fo-jlrvlfndn bypass procedure. 6. Hypertension. 7. Chronic kidney disease. RECOMMENDATIONS: 1. Follow volume status and try and maintain near euvolemic as best possible. 2. Conservative cardiovascular management overall. cc: Eldon Robins MD
--- NOTE | 2019-05-22 18:36 | OPERATIVE NOTE ---
PROCEDURE DATE: 05/22/2019 PREOPERATIVE DIAGNOSIS: Left superficial femoral artery occlusion with dry necrosis of his first and second toes. POSTOPERATIVE DIAGNOSIS: Left superficial femoral artery occlusion with dry necrosis of his first and second toes. PROCEDURE PERFORMED: 1. Left femoral to above knee popliteal bypass with Distaflo PTFE 8 mm graft. 2. Transmetatarsal amputation of the first and second toes. ESTIMATED BLOOD LOSS: 1300. ANESTHESIA: General. INDICATIONS: A 63-year-old gentleman who has congestive heart failure and left SFA occlusion with dry necrosis of his first and second digit toes on his left foot. OPERATIVE FINDINGS: There was good back bleeding noted in the popliteal artery and from the profunda. Strong flow noted through the graft at the end of the case. There was dry necrosis of the first digit extending to the mid metatarsal and necrosis of the second digit. OPERATIVE NOTE: Risks, benefits and alternatives were discussed with patient who consented for procedure and sent preoperatively. Surgical site was confirmed and marked. He was taken to the operating room and placed in supine position. General anesthesia was induced. A Diallo catheter was placed. His left leg was prepped including the abdomen to the level of the ankle with chlorhexidine and draped, excluding the foot. After a time-out, we made a longitudinal incision over the femoral pulse, carried this down dissecting out the femoral artery, protecting collaterals and venous drainage and lymphatic structures. We encircled the common femoral, SFA and profunda, as well as the collateral branch, encircling with vessel loops. We then turned our attention to medial distal thigh. We made a longitudinal incision, and carried this down identifying the popliteal artery above the knee. We encircled this proximally and distally, protecting the adjacent vein. Torrey retractor was placed here. We then tunneled an 8 mm Distaflo graft between the 2 incisions. 7000 units of intravenous heparin was administered. We obtained proximal and distal control using DeBakey clamps, and a longitudinal arteriotomy was performed using 6-0 Cl[place]et CV suture. We created an end-to-side anastomosis leaving it partially incomplete. We then turned our attention proximally. We trimmed the graft, created a smith and made a longitudinal arteriotomy, and we were able to pass a 3.5 mm probe down the profunda, ensuring good outflow at least to the profunda. In a similar fashion, created an end-to-side anastomosis with 5.0 CV suture. We then flushed the graft distally, and we passed up to a 4 mm probe into the popliteal artery without trouble, and there was good backbleeding noted, and we completed our anastomosis. There was bleeding from needle holes. A patch stitch was required on both ends. Gelfoam and thrombin was placed in both wound beds as well as protamine was given to reverse the anticoagulation. We were able to ultimately obtain hemostasis, although he remained quite easy. The wounds were closed in layers using running Vicryl suture, and the skin was closed surgical clips. Dressings were applied. The foot was then prepped with Betadine and draped in usual fashion. An elliptical incision was made to include the first and second toes back to the proximal metatarsal, and using bone cutters we divided bone. We then rongeured the bone back to healthy bleeding bone. There was good arterial bleeding noted from the wound bed. All necrosis was removed. There was no purulence. We then loosely approximated the wound with vertical mattress #1 Prolene sutures. A Vashe dressing was applied and loose Kerlix. He tolerated it well. He was awakened and transferred to recovery. I spoke to family. cc: Elke Blandon MD [facility]
[2019-05-22] MEDS: NEURONTIN PO SCH (20:22)
[2019-05-22] MEDS: LIPITOR PO SCH (20:22)
[2019-05-22] MEDS: ENTRESTO 24 MG-26 MG TABLET PO SCH (20:22)
[2019-05-22] MEDS: MIRALAX PO SCH (20:22)
[2019-05-22] MEDS: ISMO PO SCH (20:22)
[2019-05-22] MEDS: COREG PO SCH (20:22)
[2019-05-23] MEDS: OXY IR PO PRN ×3 (05:12→18:57)
[2019-05-23 06:42] LABS: BASO# 0.01 X1000 (0.0-0.2); BASO% 0.1 % (0.0-0.8); EOS# 0.05 X1000 (0.0-0.7); EOS% 0.6 % (0.0-10.0); HEMATOCRIT 24.2 % (42.0-52.0); HEMOGLOBIN 7.7 g/dL (14.0-18.0); IMM GRAN# 0.03 X1000 (0.0-0.04); IMM GRAN% 0.3 % (0.0-0.5); LYMPH# 0.83 X1000 (1.2-3.4); LYMPH% 9.4 % (20.5-51.1); MCH 27.2 PG (27-31); MCHC 31.8 g/dL (33-37); MCV 85.5 FL (81-99); MONO# 1.61 X1000 (0.11-0.59); MONO% 18.2 % (1.7-9.3); MPV 12.5 FL (7.4-10.4); NEUT# 6.31 X1000 (1.4-6.5); NEUT% 71.4 % (42.2-75.2); PLT 105 X1000 (130-400); RBC 2.83 XMIL (4.7-6.1); RDW 17.7 % (11.5-14.5); WBC 8.84 X1000 (4.8-10.8)
--- NOTE | 2019-05-23 07:04 | GENERAL SURGERY PROGRESS NOTE ---
DATE: 05/23/2019 SUBJECTIVE: The patient seems to be doing okay. Nursing staff reports no major issues. OBJECTIVE: Vital Signs: The patient is currently afebrile. Pulse 56, blood pressure 86/40. General: No acute distress. Cardiovascular: Some bradycardia. Lungs: Grossly clear. Abdomen: Soft. Extremities: Left leg with a signal through grafts at this point by Doppler. There is a faint posterior tibial by Doppler. LABORATORY: Hematocrit is 24. ASSESSMENT/PLAN: A 63-year-old gentleman postoperative day #1 from femoral-popliteal bypass Postoperative state: At this time, continue supportive care. We will need to monitor his cardiac status. He has significant cardiac history. His graft seems to be patent at this point but we will continue to monitor him and continue supportive care. cc: Darron Prasad MD
[2019-05-23 07:13] LABS: CALCIUM 7.6 mg/dL (8.8-10.2); CREATININE 3.3 mg/dL (0.7-1.2); POTASSIUM 4.5 mmol/L (3.5-5.1)
[2019-05-23] MEDS: LEVAQUIN PO SCH (08:20)
[2019-05-23] MEDS: NEURONTIN PO SCH ×2 (08:20→20:10)
[2019-05-23] MEDS: ISMO PO SCH ×2 (08:20→20:11)
[2019-05-23] MEDS: COLCRYS PO SCH (08:20)
[2019-05-23] MEDS: ICAR-C PO SCH (08:20)
[2019-05-23] MEDS: FOLIC ACID PO SCH (08:20)
[2019-05-23] MEDS: TYLENOL PO SCH ×3 (08:21→23:31)
[2019-05-23] MEDS: LASIX PO SCH (08:21)
[2019-05-23] MEDS: ZAROXOLYN PO SCH (08:21)
[2019-05-23] MEDS: ENTRESTO 24 MG-26 MG TABLET PO SCH ×2 (08:29→20:11)
[2019-05-23] MEDS: COREG PO SCH ×2 (08:29→20:10)
[2019-05-23] MEDS: DILAUDID IV PRN ×3 (08:30→21:34)
[2019-05-23] MEDS ORDERED: LASIX PO SCH (09:00)
[2019-05-23] MEDS: MIRALAX PO SCH ×3 (10:51→20:11)
[2019-05-23] MEDS: ALDACTONE PO SCH (10:52)
[2019-05-23] MEDS: APRESOLINE PO SCH ×3 (10:52→18:14)
[2019-05-23] MEDS: ZOFRAN IV PRN ×2 (12:34→21:35)
--- NOTE | 2019-05-23 13:51 | PROGRESS NOTE ---
DATE: 05/23/2019 INTERVAL HISTORY: No acute events overnight. He has been a little hypotensive. His Lasix dose has been increased. I discussed with the nurse about holding his hydralazine, isosorbide and Crestor for today. He denies any complaints. His father is at bedside. I again discussed with him about his poor overall general health, need for medical compliance. VITAL SIGNS: Currently temperature 97.1 degrees, pulse 56, respiratory rate 16, blood pressure 80/44. He is saturating 100% on 4 L nasal cannula. PHYSICAL EXAMINATION: General: He does not appear in any acute distress. HEENT: Oral cavity is moist. Lungs: Air entry bilaterally equal. No wheeze or rhonchi. He does have decreased air entry on the right infrascapular region with mild inspiratory crackles. Cardiovascular: S1, S2 normal. Regular rhythm. No murmur, rub, or gallop. Abdomen: Soft, nontender. Extremities: His right lower extremity edema significantly decreased, and left lower extremity his pulses were dopplerable in the morning time. He does have some pain and the foot is in a bandage. Neurologic: He is alert and oriented x3. LABORATORY DATA: Suggestive of normocytic anemia. He does have what appears to be chronic kidney disease stage 3. MICROBIOLOGY: No data. IMAGING: Chest x-ray was performed on May 18. ASSESSMENT AND PLAN: 1. Left great toe gangrene with osteomyelitis due to Providencia. Continue Levaquin. He is status post left femoral to above-knee popliteal bypass and transmetatarsal amputation of the 1st and 2nd toes on May 22. I will start him on DVT prophylaxis, continue oxycodone, gabapentin, IV hydromorphone for pain. 2. Acute on chronic biventricular systolic congestive heart failure with ejection fraction of 20 to 25 percent. Continue oral Lasix, metolazone, spironolactone, carvedilol. I am holding isosorbide hydralazine and Entresto for today and will reassess tomorrow. I will also continue his home Crestor. I will follow up with a chest x-ray tomorrow and as well as EKG. 3. Hypotension: likely because of intravascular volume depletion due to use of multiple antihypertensive medication, diuretics and recent surgery. I will hold Hydralazine, isosorbide and Entresto remaining of the day. I will get stat Lactate levels. If needed, I will give IV fluid back. 3. Others. Continue atorvastatin for hyperlipidemia; colchicine for gout; MiraLAX to avoid constipation; folic acid for chronic anemia due to chronic kidney disease. He is status post 5 units of RBC transfusion throughout this admission. 4. Disposition. I will continue to monitor patient in the intensive care unit for today as he is hypotensive and we will consider transferring him out tomorrow. Plan of care discussed with him and his father at bedside. More than 30 minutes spent in taking care of this critically ill patient. cc: Jaime Greene MD MTDD
[2019-05-23] MEDS ORDERED: LOVENOX SUBQ SCH (16:00)
[2019-05-23] MEDS: LIPITOR PO SCH (20:11)
[2019-05-24] MEDS: ZOFRAN IV PRN (03:12)
[2019-05-24] MEDS: DILAUDID IV PRN ×2 (03:12→10:22)
[2019-05-24 06:32] LABS: HEMATOCRIT 23.5 % (42.0-52.0); HEMOGLOBIN 7.3 g/dL (14.0-18.0); MCH 26.8 PG (27-31); MCHC 31.1 g/dL (33-37); MCV 86.4 FL (81-99); MPV 11.8 FL (7.4-10.4); RBC 2.72 XMIL (4.7-6.1); RDW 17.6 % (11.5-14.5); WBC 9.47 X1000 (4.8-10.8)
--- NOTE | 2019-05-24 06:34 | Diag Imaging Result Doc PS360 ---
EXAM: CHEST-PORTABLE HISTORY: dyspnea TECHNIQUE: Chest single view COMPARISON: 05/18/2019 FINDINGS: Poor inspiration. Cardiomegaly remains. There are small bilateral pleural effusions. Atelectasis and infiltrates in the right base. Mild pulmonary edema. IMPRESSION: Interval worsening. Electronically signed by Juan Henderson 05/24/2019 6:32 AM
[2019-05-24 06:53] LABS: CALCIUM 8.3 mg/dL (8.8-10.2); CREATININE 3.7 mg/dL (0.7-1.2); POTASSIUM 4.8 mmol/L (3.5-5.1)
--- NOTE | 2019-05-24 07:10 | GENERAL SURGERY PROGRESS NOTE ---
DATE: 05/24/2019 The patient seems to be doing about the same. He still has flow noted in his graft and a signal down in his posterior tibial. He is having some burning sensation along his foot. He has been hemodynamically stable. From a surgical point of view, he seems to have a patent graft and so I would recommend continue monitoring and continue current treatment. cc: Darron Prasad MD
[2019-05-24] MEDS ORDERED: NS 500 ML IV SCH (07:30)
[2019-05-24] MEDS ORDERED: MAGNESIUM SULFATE 2 GM/S.W.I. 2 GM/50 ML IVPB IV ONE (08:00)
[2019-05-24] MEDS: FOLIC ACID PO SCH (08:10)
[2019-05-24] MEDS: COLCRYS PO SCH (08:10)
[2019-05-24] MEDS: LEVAQUIN PO SCH (08:10)
[2019-05-24] MEDS: ICAR-C PO SCH (08:10)
[2019-05-24] MEDS: NEURONTIN PO SCH ×2 (08:10→20:17)
[2019-05-24] MEDS: TYLENOL PO SCH ×3 (08:10→23:27)
[2019-05-24] MEDS: COREG PO SCH (08:11)
[2019-05-24] MEDS: OXY IR PO PRN ×2 (09:03→23:59)
[2019-05-24] MEDS: ALDACTONE PO SCH (09:05)
[2019-05-24] MEDS: ENTRESTO 24 MG-26 MG TABLET PO SCH (09:06)
[2019-05-24] MEDS: APRESOLINE PO SCH ×2 (09:06→17:54)
[2019-05-24] MEDS: ISMO PO SCH (09:07)
[2019-05-24] MEDS: LASIX PO SCH (09:07)
[2019-05-24] MEDS: ZAROXOLYN PO SCH (09:08)
[2019-05-24] MEDS: MIRALAX PO SCH ×2 (09:10→20:17)
--- NOTE | 2019-05-24 09:29 | PROGRESS NOTE ---
DATE: 05/24/2019 INTERVAL HISTORY: Overnight, he remained hypotensive with most of his systolic readings less than high 100 during the daytime, though it improved at nighttime. SUBJECTIVE: He is complaining of left foot pain. He denies any new complaints though. His lactate was though within normal limit. Today, I discussed with the nursing team about holding his diuretics and the antihypertensive medications until his blood pressure is stable. OBJECTIVE: Vital Signs: Temperature 98.3 degrees, pulse 67, respiratory rate 12, blood pressure 94/56. He is saturating 99% on 2 L nasal cannula. General: He does not appear in any acute distress. He is eating his breakfast. HEENT: Oral cavity is moist. Lungs: He has decreased air entry with inspiratory crackles on right infrascapular region. Heart: S1, S2 are normal. Regular. No murmur, rub, or gallop. Abdomen: Soft, nontender. Extremities: His right lower extremity edema has significantly decreased since admission. His left lower extremity had first two toes amputated, and it is in a bandage. Pulses are Dopplerable. LABORATORY DATA: Suggestive of normocytic anemia, thrombocytopenia. His electrolytes are suggestive of worsening kidney function with elevated BUN and creatinine. MICROBIOLOGY: No new microbiological data. IMAGING: Has interval worsening of pleural effusions, atelectasis, and pulmonary edema. ASSESSMENT AND PLAN: 1. Left great toe gangrene with osteomyelitis with Providencia. Continue Levaquin. He is status post femoral to above-knee popliteal bypass and transmetatarsal amputation of first and second toes on 05/22/2019. Continue enoxaparin for deep venous thrombosis prophylaxis, oxycodone, gabapentin, and intravenous hydromorphone for pain. 2. Acute on chronic biventricular systolic congestive heart failure with ejection fraction of 20%. Continue carvedilol. I am holding his diuretics, including Lasix, metolazone, and spironolactone for today, and after discussion with Cardiology, I will resume isosorbide, hydralazine, Entresto later today or tomorrow. He continues to remain on atorvastatin for his coronary artery disease, requiring stent in 07/2017. I do not know the reason why he is not on aspirin. I will appreciate Cardiology recommendation on that. 3. Hypotension, likely because of intravascular volume depletion due to use of multiple antihypertensive medication, diuretics, recent surgery. I am holding his antihypertensive medication. His lactate level is normal. I will continue close monitoring of his kidney function. He does have chronic kidney disease, which now appears to be progressing from stage IIIB to stage IV with some acute kidney injury component. 4. Others. Continue colchicine for gout, MiraLAX to avoid constipation, folic acid for chronic anemia. He is status post 4 units of packed red blood cells transfusion throughout this admission. 5. Disposition. Considering his hypotension, I will monitor him in the intensive care unit for today. TIME SPENT: More than 30 minutes of critical care time were spent taking care of this patient. Yesterday, I had a discussion about plan of care with his father at bedside. cc: Jaime Greene MD
[2019-05-24] MEDS ORDERED: DOPAMINE 400 MG/D5W 400 MG/500 ML IV.SOLN IV SCH (11:15)
--- NOTE | 2019-05-24 11:30 | EKG Report ---
Test Performed on : 05/24/2019 06:27:41 AM Test Reason : Follow up QTc Blood Pressure : / mmHG Vent. Rate : 069 BPM Atrial Rate : 069 BPM P-R Int : 144 ms QRS Dur : 106 ms QT Int : 426 ms P-R-T Axes : 000 -23 175 degrees QTc Int : 456 ms Normal sinus rhythm. T wave abnormality, consider lateral ischemia Abnormal ECG When compared with ECG of 17-APR-2019 06:26, No significant change was found Confirmed by Gucci RAYMOND, Jamal Oalkey ([id number]) on 05/25/2019 8:52:58 AM
[2019-05-24] MEDS: LOVENOX SUBQ SCH (15:29)
[2019-05-24] MEDS ORDERED: NS 1,000 ML IV SCH (17:15)
[2019-05-24] MEDS ORDERED: LASIX IV ONE (17:48)
[2019-05-24] MEDS ORDERED: LASIX ONE (18:08)
[2019-05-24] MEDS: LIPITOR PO SCH (20:17)
[2019-05-24] MEDS: DOPAMINE 400 MG/D5W 400 MG/500 ML IV.SOLN IV SCH (23:26)
[2019-05-25] MEDS: OXY IR PO PRN ×2 (05:32→14:30)
[2019-05-25] MEDS: TYLENOL PO SCH ×2 (07:09→16:40)
[2019-05-25 07:10] LABS: BASO# 0.01 X1000 (0.0-0.2); BASO% 0.1 % (0.0-0.8); HEMATOCRIT 23.2 % (42.0-52.0); HEMOGLOBIN 7.2 g/dL (14.0-18.0); LYMPH# 1.03 X1000 (1.2-3.4); LYMPH% 10.6 % (20.5-51.1); MCH 26.9 PG (27-31); MCV 86.6 FL (81-99); MONO% 15.5 % (1.7-9.3); MPV 10.9 FL (7.4-10.4); PLT 128 X1000 (130-400); RBC 2.68 XMIL (4.7-6.1); RDW 17.7 % (11.5-14.5); WBC 9.69 X1000 (4.8-10.8)
[2019-05-25 07:15] LABS: CALCIUM 8.2 mg/dL (8.8-10.2); CREATININE 4.2 mg/dL (0.7-1.2); POTASSIUM 5.1 mmol/L (3.5-5.1)
[2019-05-25 07:50] LABS: BANDS 2 % (0-1); LYMPHS 16 % (21-51); MONO 8 % (1-9); SEGS 72 % (42-75)
[2019-05-25] MEDS: COLCRYS PO SCH (09:23)
[2019-05-25] MEDS: ICAR-C PO SCH (09:23)
[2019-05-25] MEDS: FOLIC ACID PO SCH (09:24)
[2019-05-25] MEDS: NEURONTIN PO SCH ×2 (09:24→20:47)
[2019-05-25] MEDS: MIRALAX PO SCH ×2 (09:24→20:47)
[2019-05-25] MEDS: LEVAQUIN PO SCH (09:24)
[2019-05-25] MEDS: ALDACTONE PO SCH (09:56)
[2019-05-25] MEDS: LASIX PO SCH (09:56)
[2019-05-25] MEDS: ZAROXOLYN PO SCH (09:56)
[2019-05-25] MEDS: DOPAMINE 400 MG/D5W 400 MG/500 ML IV.SOLN IV SCH (10:29)
[2019-05-25] MEDS ORDERED: DOPAMINE 400 MG/D5W 400 MG/500 ML IV.SOLN IV SCH (14:17)
[2019-05-25] MEDS: DOBUTAMINE 500/D5W 500 MG/250 ML IV.SOLN IV SCH (14:33)
--- NOTE | 2019-05-25 14:43 | GENERAL SURGERY PROGRESS NOTE ---
DATE: 05/25/2019 SUBJECTIVE: He is doing okay. Still a little confused and combative at times. He is in restraints. Urine output has been okay. No fevers. No tachycardia. Blood pressures have been low 100s to 120s. His right lower leg is warm. There is minimal amount of drainage on his wound. His other wounds are flat. White count is 9, hematocrit is 23. Creatinine is up to 4.2. Glucose has been okay. ASSESSMENT AND PLAN: This is a 63-year-old gentleman status post left femoral to above knee popliteal bypass and amputation of his first and second toes. It seems to have good flow and improved perfusion of his leg. Unfortunately, his creatinine has risen above his baseline level now to 4.2, but urine output seems okay. He is a little confused. He is anemic. I do think that he would benefit from possible transfusion, however, volume status remains an issue. We will continue to follow along although he is doing well from a surgical standpoint. Vashe dressings twice a day to his left foot. cc: Elke Blandon MD
[2019-05-25] MEDS: LOVENOX SUBQ SCH (17:00)
--- NOTE | 2019-05-25 19:38 | PROGRESS NOTE ---
DATE: 05/25/2019 INTERVAL HISTORY: He did have worsening kidney function and decreasing urine output yesterday so late in the day he was started on dopamine drip. I also gave him a liter of intravenous fluid back to see if that helps with his blood pressure and kidney function and his antihypertensive medication diuretics were held. Currently vitals suggest temperature of 98.5 degrees, pulse 69, respiratory rate 14, blood pressure 120/62, he is saturating 100% on room air. PHYSICAL EXAMINATION: He is partly confused. He has intermittent episodes of confusion and he had to be restrained. I took out his denture since it was loose so that he does not choke on his denture. He denies new complaints though he is confused at the moment. Temperature of 98.5 degrees, pulse 69, respiratory 14, blood pressure 122/62, saturating 100% on 2 L nasal cannula.General: Not in acute distress. Oral cavity is moist. He has inspiratory crackles right inframammary region. Adequate air entry on left hemithorax. S1, S2 normal regular. No murmur, rub, or gallop. Abdomen: Soft, nontender. He has right lower extremity edema which is better than before. He does have a left lower extremity left foot in bandage. His pulses are Doppler able according the nursing report. His 1st 2 toes on the left foot have been amputated. LABS: Suggestive of normocytic anemia, thrombocytopenia, worsening BUN and creatinine. Microbiology no new data. No new imaging. ASSESSMENT AND PLAN: 1. Left great toe gangrene with osteomyelitis with Providencia in March 2019 now status post femoral above-knee popliteal bypass and transmetatarsal amputation of 1st and 2nd toe on May 22. Continue oral Levaquin until wound healing is ensured, enoxaparin for deep venous thrombosis prophylaxis, gabapentin intravenous hydromorphone and oxycodone as needed for pain. I decreased the dose of oxycodone and gabapentin considering his confusion. I will keep him on acetaminophen scheduled. 2. Acute on chronic biventricular systolic congestive heart failure with ejection fraction of 20% now developing hypotension and acute kidney injury on chronic kidney disease stage 3 to stage 4 with decreasing urine output. According to Cardiology recommendations he is on intravenous dopamine and dobutamine. He is also receiving diuretic including Lasix, spironolactone, metolazone and we are holding his carvedilol hydralazine isosorbide and Entresto for now. We will closely monitor his input and output through Diallo catheter. 3. Acute kidney injury on chronic kidney disease stage 3 to stage 4. This is in part also due to cardiorenal syndrome I assume. If his BUN, creatinine is worse I may consider Nephrology consultation as he may need dialysis soon. He is currently confused though he is on narcotic pain medication, uremia could be a component as well. 4. Others. Continue colchicine for gout, MiraLAX to avoid constipation, folic acid for chronic anemia, he is status post 4 units of packed red blood cell throughout this admission. DISPOSITION: I will continue monitor him in ICU. TIME SPENT: More than 30 minutes of critical care time was spent taking care of this patient. Plan of care discussed with patient and the nursing team. cc: Jaime Greene MD
[2019-05-25] MEDS ORDERED: LASIX IV ONE (20:00)
[2019-05-25] MEDS: LIPITOR PO SCH (20:47)
[2019-05-26] MEDS: TYLENOL PO SCH ×3 (00:06→15:22)
[2019-05-26] MEDS: DILAUDID IV PRN ×2 (01:53→06:59)
[2019-05-26 07:19] LABS: BASO# 0.01 X1000 (0.0-0.2); BASO% 0.1 % (0.0-0.8); EOS# 0.06 X1000 (0.0-0.7); EOS% 0.6 % (0.0-10.0); HEMATOCRIT 20.8 % (42.0-52.0); HEMOGLOBIN 6.2 g/dL (14.0-18.0); IMM GRAN# 0.02 X1000 (0.0-0.04); IMM GRAN% 0.2 % (0.0-0.5); LYMPH# 1.24 X1000 (1.2-3.4); LYMPH% 12.4 % (20.5-51.1); MCH 26.4 PG (27-31); MCHC 29.8 g/dL (33-37); MCV 88.5 FL (81-99); MONO# 1.31 X1000 (0.11-0.59); MONO% 13.1 % (1.7-9.3); MPV 10.8 FL (7.4-10.4); NEUT# 7.39 X1000 (1.4-6.5); NEUT% 73.6 % (42.2-75.2); PLT 137 X1000 (130-400); RBC 2.35 XMIL (4.7-6.1); RDW 17.5 % (11.5-14.5); WBC 10.03 X1000 (4.8-10.8)
--- NOTE | 2019-05-26 07:23 | Diag Imaging Result Doc PS360 ---
EXAM: CHEST-PORTABLE 05/26/2019 HISTORY: dyspnea TECHNIQUE: AP portable at 0529 COMMENT: There is a right pleural effusion. Compared to 05/24/2019 there has been some slight improvement in the opacity in the right lower lobe. The platelike opacity in the left costophrenic angle region has also resolved. IMPRESSION: Improved atelectasis and/or pneumonia. Right pleural effusion. Electronically signed by Chan Abdi 05/26/2019 7:20 AM
[2019-05-26 07:59] LABS: CREATININE 3.9 mg/dL (0.7-1.2); POTASSIUM 5.3 mmol/L (3.5-5.1)
[2019-05-26] MEDS: COLCRYS PO SCH (08:10)
[2019-05-26] MEDS: FOLIC ACID PO SCH (08:10)
[2019-05-26] MEDS: NEURONTIN PO SCH ×2 (08:11→20:45)
[2019-05-26] MEDS: ICAR-C PO SCH (08:12)
[2019-05-26] MEDS: LEVAQUIN PO SCH (08:12)
[2019-05-26] MEDS: MIRALAX PO SCH ×2 (08:13→20:46)
[2019-05-26] MEDS: ALDACTONE PO SCH (08:20)
[2019-05-26] MEDS: ZAROXOLYN PO SCH (09:34)
[2019-05-26] MEDS ORDERED: NS 500 ML IV ONE (09:36)
[2019-05-26] MEDS: LASIX PO SCH (10:57)
[2019-05-26] MEDS: COREG PO SCH ×2 (10:58→20:45)
[2019-05-26] MEDS: LOVENOX SUBQ SCH (15:22)
[2019-05-26 19:11] LABS: URINE SOURCE CLEAN CATCH
[2019-05-26 19:22] LABS: BILIRUBIN URINE NEGATIVE (NEGATIVE); BLOOD URINE MODERATE (NEGATIVE); COLOR YELLOW; GLUCOSE URINE NEGATIVE (NEGATIVE); KETONE URINE NEGATIVE (NEGATIVE); LEUKOCYTES URINE NEGATIVE (NEGATIVE); NITRITE URINE NEGATIVE (NEGATIVE); PROTEIN URINE 50 mg/dL (NEGATIVE); SP GRAVITY URINE 1.012; TURBIDITY URINE HAZY (CLEAR); UROBILINOGEN URINE NORMAL (NORMAL)
[2019-05-26 19:24] LABS: UR EPITHELIAL CELLS <10 /HPF (<10); URINE BACTERIA NEGATIVE /HPF; URINE RBC TNTC /HPF (<10); URINE WBC <10 /HPF (<10)
--- NOTE | 2019-05-26 19:32 | GENERAL SURGERY PROGRESS NOTE ---
DATE: 05/26/2019 SUBJECTIVE: He is more alert. His renal function is back down to 3.9. He has being transfused a unit of blood. He remains on dobutamine. OBJECTIVE: Hemodynamically stable. He has a strong signal over his graft well as well as the posterior tibial location. Dressing is clean. ASSESSMENT AND PLAN: A 63-year-old gentleman status post left femoral below-knee popliteal bypass with amputation of the 1st and 2nd toes, doing well. He has good flow in his graft and increased perfusion in his foot. We will continue medical management and diurese. Inotropic support per the foreign exchange clerk. cc: Elke Blandon MD
[2019-05-26 19:33] LABS: URINE CASTS NONE SEEN; URINE CRYSTALS NONE SEEN; URINE YEAST NONE SEEN
[2019-05-26 19:37] LABS: HEMATOCRIT 23.3 % (42.0-52.0); HEMOGLOBIN 7.3 g/dL (14.0-18.0)
[2019-05-26 19:43] LABS: UR CREAT RANDOM 47.7 mg/dL (14-26); UR PROT RANDOM 69.4 mg/dL
[2019-05-26] MEDS: LIPITOR PO SCH (20:46)
--- NOTE | 2019-05-26 21:51 | NEPHROLOGY CONSULTATION ---
DATE: 05/26/2019 REASON FOR ADMISSION: Weakness with need for transfusion, low hemoglobin . REASON FOR CONSULT: Acute kidney injury. CONSULTING PHYSICIAN: Dr. Becka Segovia. HPI: Mr. Stewart is a 63-year-old male who is in known for in patient hospital treatment for chronic kidney disease stage 3B-4. Patient's baseline creatinine earlier this year was 1.9 seen in the hospital, had plan for a followup in our office a month ago on 04/15 was found to have a low hemoglobin, was requested to go to the hospital for evaluation and possible transfusion prior to a surgery for a left femoral-popliteal bypass. The patient did come to the hospital on 04/16. He was treated with 2 units of packed red blood cells, was subsequently discharged for further workup in regards with having his left femoral-popliteal bypass. During this hospitalization he was admitted on 05/11/2019. At that time he had worsening renal function, found to have a baseline creatinine of 2.7 on admission, at that time he was started on a dopamine drip. They gave him 1 L of IV fluids cautiously secondary to patient's underlying cardiomyopathy and chronic systolic heart failure. The patient has an LVEF 15 to 20 percent documented in August 2018. He is also noted to have global hypokinesis and RV filling pressures low with the left atrial enlargement. He is in stage II- stage III heart failure, he has been followed by Cardiology. During this hospital stay patient did have a thoracentesis on 05/14/2019 for 1100 mL under ultrasound- guided thoracentesis for straw color. He has also had a left femoral-popliteal bypass with amputation of his 1st and 2nd toe on the left secondary to osteomyelitis and gangrene per Dr. Blandon. He has continued to be followed by Cardiology and is currently residing in ICU secondary to low blood pressure and systolic heart failure. He has been given Lasix due to his increased work of breathing, increased extremity swelling and decreased urinary output with elevated BUN and creatinine. Patient was subsequently placed on dobutamine and dopamine in the last 48 hours. Dopamine has completed and he remains on dobutamine. During this period of time it is found that he has a BUN of 90 with a creatinine of 3.9. Urine output is stable with a Diallo catheter of 1025 in the last 24 hours. He is in -10 L fluid balance. His Lasix is currently been held. He has renal dosed IV antibiotics. Chest x-ray this morning showed improved atelectasis/pneumonia with right pleural effusions present. Urinalysis has been completed showing positive urine eosinophiles. He had BNP this morning of greater than 35,000, remains on dobutamine. Patient is awake and alert. He denies chest pain. No increased work of breathing without exertion. Denies nausea, vomiting or diarrhea though states that he has a poor appetite. No recent fever or chills. The patient has been afebrile. Patient has received 7 units of packed red blood cells during his hospital stay and is noted to have a hemoglobin of 6.2 this a.m. PAST MEDICAL HISTORY: Positive for severe ischemic cardiomyopathy with systolic congestive heart failure, last ejection fraction of 20 to 25 percent in August 2018, he has a history of hypertension, hyperlipidemia, diabetes mellitus type 2, recurrent right pleural effusion requiring previous thoracentesis, he has gout, folic acid deficiency, COPD, chronic kidney disease stage 3B-4, constipation, coronary artery disease, gangrenous left great toe with recent osteomyelitis and amputation with a femoral popliteal bypass. PAST SURGICAL HISTORY: Right foot surgery, left leg femoral-popliteal bypass, 1st and great toe amputation on 05/22, coronary artery stenting multiples, multiple thoracentesis. SOCIAL HISTORY: He is , he has grandchildren and children who are attentive to his care. Quit smoking in 2018, pack per day for greater than 40 years. He does have a history of cocaine abuse in the past. Denies any current illicit drug use, alcohol or current tobacco. FAMILY HISTORY: Positive for coronary artery disease. ALLERGIES: Listed as no known drug allergies. HOME MEDICATIONS: Previously listed, herbal calciferol, atorvastatin, MiraLAX, hydralazine, colchicine, carvedilol, Entresto, furosemide, gabapentin, iron carbonyl, isosorbide, tramadol and folate. REVIEW OF SYSTEMS: Times 10 with pertinent positives listed above in the HPI. Most recent vital signs temperature 97.5 degrees, blood pressure 97/47, heart rate is 52, respirations are 16, he is on 2 L nasal cannula, last recorded saturation is 100%, he has had 1240 in, 1025 out to Diallo catheter. He is in a -10 L fluid balance on his I's and O's. LABS: Sodium is 137, potassium 5.3, chloride 100, CO2 23, BUN 90, creatinine 3.9, glucose is 92, anion gap 14, calcium 8, magnesium 2. White count 10.03, hemoglobin 6.2, hematocrit 20.8, platelet count 137,000. Negative for urine eosinophils. BNP greater than 35,000. Chest x-ray this a.m. again showing improved atelectasis and pneumonia with continued right pleural effusion. PHYSICAL EXAMINATION: This is a 63-year-old male who is resting quietly in bed. He appears chronically ill, no acute distress. Skin is warm and dry.HEENT: Normocephalic, atraumatic. Conjunctiva is pale. He has LYNDA. Mucous membranes are dry. Poor dentition present. Neck: Supple. Trachea midline. No evidence of JVD in the upright position. Cardiovascular: Regular rate and rhythm. S4 is present. Lungs: Clear to auscultation bilateral. Equal excursion on O2. Abdomen: Soft, round, large, nontender, positive bowel sounds. Genitourinary: Not inspected. Diallo catheter remains in place with adequate urine documented out. Extremities: Left foot remains dressing. Upper left leg has light dressing intact. Positive pulses diminished to the left lower extremity. No edema to the right, continues with Doppler according to the nurses. Neurological: He is alert and oriented x2, forgetful to some recent events though he does recognize Dr. Lemon during the interview. ASSESSMENT AND PLAN: 1. Acute kidney injury on chronic kidney disease stage 3B-4. Patient's baseline creatinine over the last year has been 1.9 to 2.7. Creatinine is at 3.9 with a BUN of 90. He has adequate urine output documented. Patient has urine electrolytes ordered. We will recheck a renal ultrasound. Patient has had large doses of Lasix infusing, these are currently on hold. He continues on dobutamine, dopamine has been stopped. We will continue to monitor. No indications for acute dialysis. 2. Electrolytes and acid-base balance. These are acceptable. 3. Anemia. This remains low, hemoglobin of 6.2. Patient has orders to transfuse 1 unit of packed red blood cells once ready today. 4. Status post femoropopliteal bypass. This is followed by Surgery and the primary care. The patient is currently on renal dosed antibiotics. He currently has his Entresto on hold. 5. Acute on chronic biventricular systolic congestive heart failure, ejection fraction noted at 15 to 20 percent. This is currently being followed by Cardiology. He remains on a dobutamine drip. 6. Left great toe gangrene with osteomyelitis status post repair with a left great toe, left 2nd toe amputation followed by Dr. Blandon and the primary care. Like to thank you for allowing us to follow with this patient. Dictated by CLAY Gary for Baron Lemon MD Face to face encounter, data reviewed, discussed with Amaris Grissom on05/26/19. I agree with the above assessment and plan of care. cc: CLAY Gary MD [facility]
--- NOTE | 2019-05-26 22:14 | PROGRESS NOTE ---
DATE: 05/26/2019 SUBJECTIVE: The patient is resting comfortably in bed. He is currently on a dobutamine drip. He does have periods of confusion. OBJECTIVE: Vital signs: Temperature 98.6 degrees, blood pressure 115/55, heart rate 60, respirations 17, O2 saturation is 100% on 2 L nasal cannula. Intake 1.2 L, output 1 L.General: This is a chronically ill-appearing elderly male, lying comfortably in bed in no acute distress. Head normocephalic, atraumatic. Heart: S1, S2 normal. Regular rate and rhythm. Lungs: Equal air entry bilaterally. No wheezing. No rales. No rhonchi. Abdomen: Positive bowel sounds. Soft, nontender, nondistended. Extremities: Edema 1+ bilaterally. Neurologic: The patient is alert and oriented x3. LABORATORY DATA: White blood cell count 10, hemoglobin 7.3, hematocrit 23, platelets 137,000. Sodium 137, potassium 5.3, chloride 100, CO2 is 23, BUN 90, creatinine 3.9, glucose 92. ProBNP greater than 35,000. DIAGNOSTIC DATA: Chest x-ray shows right pleural effusion, improved atelectasis. ASSESSMENT AND PLAN: 1. Status post [id number] popliteal bypass and transmetatarsal amputation of 1st and 2nd toes, secondary to left great toe gangrene and severe peripheral arterial disease. Continue with wound care and oral antibiotic therapy. 2. Acute on chronic systolic congestive heart failure exacerbation. Management as per the bath mixer. 3. Severe cardiomyopathy. Aware. 4. Acute kidney injury on chronic kidney disease. The patient's renal function is slightly worse than it was on admission. We will check urine studies and consult with the shop service technician. 5. Diabetes mellitus type 2, uncontrolled. We will cover the patient with sliding scale insulin. 6. Severe peripheral vascular disease. Aware. 7. Coronary artery disease. Continue on the current cardiac medications. 8. Deep vein thrombosis prophylaxis. Continue on Lovenox. cc: Becka Segovia MD MTDD
[2019-05-27] MEDS: DILAUDID IV PRN ×2 (02:55→21:47)
[2019-05-27] MEDS: TYLENOL PO SCH ×2 (02:55→08:09)
[2019-05-27] MEDS ORDERED: ATIVAN IV ONE (03:40)
[2019-05-27 04:34] LABS: BASO# 0.01 X1000 (0.0-0.2); BASO% 0.1 % (0.0-0.8); EOS# 0.05 X1000 (0.0-0.7); EOS% 0.5 % (0.0-10.0); HEMATOCRIT 23.2 % (42.0-52.0); HEMOGLOBIN 7.2 g/dL (14.0-18.0); IMM GRAN# 0.03 X1000 (0.0-0.04); IMM GRAN% 0.3 % (0.0-0.5); LYMPH# 0.96 X1000 (1.2-3.4); LYMPH% 9.7 % (20.5-51.1); MCV 90.3 FL (81-99); MONO# 1.11 X1000 (0.11-0.59); MONO% 11.2 % (1.7-9.3); MPV 10.8 FL (7.4-10.4); NEUT# 7.71 X1000 (1.4-6.5); NEUT% 78.2 % (42.2-75.2); PLT 138 X1000 (130-400); RBC 2.57 XMIL (4.7-6.1); RDW 17.5 % (11.5-14.5); WBC 9.87 X1000 (4.8-10.8)
[2019-05-27 04:51] LABS: CREATININE 4.1 mg/dL (0.7-1.2); POTASSIUM 5.2 mmol/L (3.5-5.1)
[2019-05-27] MEDS: DOBUTAMINE 500/D5W 500 MG/250 ML IV.SOLN IV SCH (06:28)
[2019-05-27] MEDS: LEVAQUIN PO SCH (08:09)
[2019-05-27] MEDS: FOLIC ACID PO SCH (08:09)
[2019-05-27] MEDS: MIRALAX PO SCH ×2 (08:09→21:47)
[2019-05-27] MEDS: ICAR-C PO SCH (08:09)
[2019-05-27] MEDS: COREG PO SCH ×2 (08:09→21:47)
[2019-05-27] MEDS: LASIX PO SCH (08:10)
[2019-05-27] MEDS: NEURONTIN PO SCH ×2 (08:10→21:46)
[2019-05-27] MEDS: COLCRYS PO SCH (08:10)
[2019-05-27 12:36] LABS: HEMATOCRIT 21.6 % (42.0-52.0); HEMOGLOBIN 6.8 g/dL (14.0-18.0)
--- NOTE | 2019-05-27 12:50 | NEPHROLOGY PROGRESS NOTE ---
DATE: 05/27/2019 TIME SEEN: 0705. SUBJECTIVE: Mr. Stewart is resting quietly in bed. He is in no acute distress. States that he is unsure as to why he is not feeling well today. Appears slightly confused at this time. LABORATORY DATA: Sodium 136, potassium 5.2, chloride 101, CO2 of 23, BUN 94, creatinine 4.1, glucose 103, anion gap 12, calcium 8. White count 9.87, hemoglobin 7.2, hematocrit 23.2, with a platelet count of 138,000. The patient had a fractionated urea score of 37.16%. Remains on dobutamine drip. PHYSICAL EXAMINATION: Most Recent Vital Signs: Temperature 98.7 degrees, blood pressure 89/58, heart rate 68, respirations 12. He is on 2 L nasal cannula. Last recorded saturation 100%. He has had 918 in, 800 out to void. General: This is a 63-year-old male. He is resting quietly in bed. He appears chronically ill. He is in no acute distress. Skin: Warm and dry. HEENT: Atraumatic, normocephalic. Conjunctivae pale. He has LYNDA. Mucous membranes are dry. Poor dentition. Neck: Supple. Trachea midline. No evidence of JVD in the upright position. Cardiovascular: He is regular rate and rhythm on the monitor. He has a systolic murmur present. Lungs: Clear to auscultation bilaterally. Equal excursion on O2. Abdomen: Soft, round, large, nontender. Positive bowel sounds. Genitourinary: Not inspected. The patient has been voiding. Adequate amount recorded. Extremities: The patient continues with 1+ upper thigh edema on the left greater than right. Dressing remains to the left foot and the inner aspect of the left leg. Neurological: He is alert to person and to place. ASSESSMENT AND PLAN: 1. Acute kidney injury on chronic kidney disease, stage IIIB/IV. The patient's BUN and creatinine remained stable during his hospital stay. BUN is just slightly elevated at 94, with a BUN of 4.1. He has had adequate urine output documented. No indications for MOLD PRESSER. 2. Electrolytes. These are acceptable with a potassium of 5.2. 3. Acid-base balance. This is acceptable with a CO2 of 23. 4. Anemia. Hemoglobin has dropped during his hospital stay. Hemoglobin is up to 7.2 from 6.2 yesterday after receiving 1 unit of packed red blood cells. 5. Status post femoropopliteal bypass with surgical removal of the first and second toe. This is followed by Surgery and the primary care team. I would like to thank you for allowing us to follow with this patient. Dictated by CLAY Gary for Baron Lemon MD Face to face encounter, data reviewed, discussed with Amaris Grissom on 05/27/19. I agree with the above assessment and plan of care. cc: CLAY Gary MD [facility]
[2019-05-27] MEDS ORDERED: NS 500 ML IV ONE (12:52)
[2019-05-27] MEDS: LOVENOX SUBQ SCH (16:10)
--- NOTE | 2019-05-27 16:33 | GENERAL SURGERY PROGRESS NOTE ---
DATE: 05/27/2019 SUBJECTIVE: Doing much better. Seemed more alert. He is on dobutamine. His legs are warm. Dressing is clean. I reviewed his labs. ASSESSMENT/PLAN: A 61-year-old gentleman status post above knee popliteal bypass. He has good flow to his foot and his wound seems to be healing. We will continue to follow along the labor utilization superintendent for providing inotropic support via dobutamine to facilitate his diuresis. cc: Elke Blandon MD
[2019-05-27] MEDS ORDERED: LASIX IV ONE (19:26)
[2019-05-27 19:44] LABS: URINE SOURCE CATH
[2019-05-27 19:48] LABS: COLOR RED; SP GRAVITY URINE 1.012; TURBIDITY URINE TURBID (CLEAR)
[2019-05-27 19:54] LABS: BILIRUBIN URINE LARGE (NEGATIVE); BLOOD URINE LARGE (NEGATIVE); GLUCOSE URINE NEGATIVE (NEGATIVE); KETONE URINE 10 mg/dL (NEGATIVE); LEUKOCYTES URINE MODERATE (NEGATIVE); NITRITE URINE POSITIVE (NEGATIVE); PH URINE 6.5; PROTEIN URINE 600 mg/dL (NEGATIVE); UROBILINOGEN URINE 4 mg/dL (NORMAL)
[2019-05-27 19:55] LABS: URINE RBC TNTC /HPF (<10)
[2019-05-27 20:13] LABS: HEMATOCRIT 25.4 % (42.0-52.0); HEMOGLOBIN 8.1 g/dL (14.0-18.0)
[2019-05-27] MEDS: ROCEPHIN 1 GM in NS 50 ML IV SCH (21:46)
[2019-05-27] MEDS: LIPITOR PO SCH (21:46)
--- NOTE | 2019-05-27 22:46 | PROGRESS NOTE ---
DATE: 05/27/2019 SUBJECTIVE: Patient continues without shortness of breath or chest discomfort on room air. He is receiving transfusion of packed red cells this afternoon. OBJECTIVE: Vital Signs: Blood pressure 117/56, heart rate 65, oxygen saturation 100%. Neck: Jugular venous distention suggests borderline elevated central venous pressure. Chest: Clear to auscultation bilaterally. Cardiac Exam: Reveals a regular rate and rhythm without appreciable murmur or gallop. Extremities: Without edema. LABORATORY DATA: Includes white blood cell count of 9.87, hematocrit 21.6, hemoglobin 6.8, platelet count 138,000, sodium 136, potassium 5.2, chloride 101, carbon dioxide 23, BUN 94, creatinine 4.1, glucose 103. IMPRESSION: 1. Chronic systolic heart failure. Volume status reasonable at present; however, the patient may require additional Lasix following transfusion. 2. Severe cardiomyopathy with left ventricular ejection fraction of 20%. 3. Atherosclerotic coronary disease. Patient continues without angina. 4. Severe peripheral vascular disease. Patient is status post left femoral to popliteal bypass as well as amputation of left great toe due to gangrene. 5. Hypertension. 6. Chronic kidney disease. RECOMMENDATIONS: 1. Agree with transfusion. 2. Supplement Lasix intravenously following transfusion. cc: Eldon Robins MD
--- NOTE | 2019-05-28 01:48 | PROGRESS NOTE ---
DATE: 05/27/2019 SUBJECTIVE: The patient is confused this morning. He has been hallucinating and pulling at his lines. He pulled out his Diallo this morning. OBJECTIVE: Vital signs: Temperature 97.6 degrees, blood pressure 119/57, heart rate 67, respirations 12, O2 saturation is 100% on room air. Intake 962, output 1.3 L.General: This is a chronically ill-appearing elderly male, lying in bed in no acute distress. Head normocephalic, atraumatic. Heart: S1, S2 normal. Regular rate and rhythm. Lungs: Equal air entry bilaterally. No wheezing. No rales. No rhonchi. Abdomen: Positive bowel sounds. Soft, nontender, nondistended. Extremities: No edema. No cyanosis. The left foot is wrapped in a clean, dry dressing. Neurologic: The patient is oriented to self only. He is able to move all 4 extremities. LABORATORY DATA: White blood cell count 9.8, hemoglobin 8.1, hematocrit 25, platelets 138,000. Sodium 136, potassium 5.2, chloride 101, CO2 is 23, BUN 94, creatinine 4.1, glucose 103. UA positive for nitrites, moderate leukocytes, positive for blood and RBCs. ASSESSMENT AND PLAN: 1. Metabolic encephalopathy. The patient was noted to be hallucinating this morning and he pulled out his Diallo catheter amidst all the confusion. This is likely multifactorial, given the patient's multiple medical issues. We will continue to monitor closely and treat the underlying problems. 2. Urinary tract infection. We will discontinue the Levaquin and start the patient on Rocephin. We will await the urine culture results. 3. Gross hematuria. This is likely secondary to a traumatic Diallo catheter removal by the patient. We will consult with the urologist for further recommendations. 4. Status post above-knee popliteal bypass and transmetatarsal amputation of the 1st and 2nd toes secondary to left great toe gangrene and osteomyelitis, complicated by severe peripheral arterial disease. Continue with wound care. General Surgery is following. 5. Acute on chronic systolic congestive heart failure exacerbation. The patient is currently on diuretic therapy. Continue with management as per the iron caster. 6. Acute kidney injury on chronic kidney disease. Unchanged. Nephrology is following. 7. Severe cardiomyopathy. Aware. 8. Diabetes mellitus type 2, uncontrolled. Continue with sliding scale insulin. 9. Severe peripheral vascular disease. Aware. 10. Coronary artery disease. Continue on the current cardiac medications. 11. Severe anemia. The patient is scheduled to receive 1 unit of packed red blood cells today. We will do a posttransfusion hemoglobin and hematocrit and monitor. We will also check iron studies as well. cc: Becka Segovia MD MTDD
--- NOTE | 2019-05-28 05:59 | CONSULTATION ---
DATE OF CONSULTATION: 05/27/2019 CONSULTING PHYSICIAN: Dr. Segovia. REASON FOR CONSULTATION: Traumatic Diallo removal and gross hematuria. HISTORY OF PRESENT ILLNESS: A 63-year-old male without previous significant urologic history, who was admitted on 05/11/2019 with severe peripheral vascular disease and left lower extremity necrosis. He underwent above the knee popliteal bypass. He is currently in the ICU. Reportedly, per previous strategic sourcing specialist nurse, he pulled out his Diallo catheter with a balloon in place. The day shift nursing staff eventually placed a Diallo in, but there was quite a bit of blood although there was urine return with it. There was some blood reportedly around the Diallo catheter. No pulsatile bleeding was noted. The patient denies significant lower urinary tract symptoms prior to hospitalization. He does have hesitancy and frequency. He denies episodes of gross hematuria in the past. He reports he feels comfortable with the catheter in place currently. PAST MEDICAL HISTORY: Peripheral vascular disease, congestive heart failure, hypertension, diabetes mellitus, hyperlipidemia, gout, COPD, and chronic kidney disease. PAST SURGICAL HISTORY: Right foot surgery, left femoral-popliteal bypass, toe amputation, percutaneous coronary stenting, thoracenteses, and recent femoral popliteal bypass. ALLERGIES: No known drug allergies. HOME MEDICATIONS: 1. Atorvastatin. 2. Hydralazine. 3. Colchicine. 4. Carvedilol. 5. Entresto. 6. Furosemide. 7. Gabapentin. 8. Isosorbide nitrite. 9. Tramadol. 10. Folate. FAMILY HISTORY: Negative for malignancies. SOCIAL HISTORY: Reportedly quit smoking a year ago. Denies alcohol or illicit drug use currently. REVIEW OF SYSTEMS: Reviewed and 12 systems negative except for the HPI. PHYSICAL EXAMINATION: Vital Signs: T 97.6 degrees, P 63, and BP 120/53. General: No acute distress. HEENT: Normocephalic and atraumatic. Pulmonary: Bilateral inspiratory effort. Cardiovascular: Regular rhythm. Abdomen: Nontender, nondistended, and scaphoid. : Normal external male genitalia. Diallo catheter in place with some dried blood at the meatus, but no active bleeding noted. There was bloody urine in the Diallo catheter. It appears to be draining well. There were no clots seen in the tubing. Testes descended bilaterally without masses. Dermatologic: No obvious skin rashes. Neurologic: Alert and oriented x3. Psychiatric: Appropriate mood and affect. PERTINENT LABORATORY DATA: White cell count 10,000, hematocrit 22, and creatinine is 4.1. ASSESSMENT/PLAN: A 63-year-old male with multiple comorbidities who is recovering after bypass of his lower extremity who reportedly inadvertently removed his Diallo catheter with the balloon in place. The patient reports he does not recall the event, and attributes to having medications on board. He currently has Diallo catheter in place that is draining bloody urine but no clots. I have discussed with the patient that as long as the catheter is draining, the plan would be to leave it alone in place for 1 week, and then have it removed. We discussed trauma associated with pulling the Diallo catheter with the balloon in place could result in the future in a urethral stricture. He voiced understanding. PLAN: 1. Keep Diallo catheter to gravity drainage. Recommend for it to be removed in about 7 days. 2. Please call if questions. cc: Raoul Monae MD
[2019-05-28] MEDS: DILAUDID IV PRN (06:09)
--- NOTE | 2019-05-28 06:34 | Diag Imaging Result Doc PS360 ---
EXAM: CHEST-PORTABLE HISTORY: dyspnea TECHNIQUE: Portable chest COMPARISON: 05/26/2019 FINDINGS: There are infiltrates in the right base with atelectasis and a small left effusion. The heart is mildly enlarged. Mild vascular distention. IMPRESSION: No interval improvement Electronically signed by Juan Henderson 05/28/2019 6:32 AM
[2019-05-28 07:22] LABS: BASO# 0.01 X1000 (0.0-0.2); BASO% 0.1 % (0.0-0.8); EOS# 0.02 X1000 (0.0-0.7); EOS% 0.2 % (0.0-10.0); HEMOGLOBIN 7.9 g/dL (14.0-18.0); IMM GRAN# 0.03 X1000 (0.0-0.04); IMM GRAN% 0.3 % (0.0-0.5); LYMPH# 0.95 X1000 (1.2-3.4); LYMPH% 10.4 % (20.5-51.1); MCH 27.5 PG (27-31); MCHC 31.6 g/dL (33-37); MCV 87.1 FL (81-99); MONO% 12.1 % (1.7-9.3); MPV 10.9 FL (7.4-10.4); NEUT# 6.99 X1000 (1.4-6.5); NEUT% 76.9 % (42.2-75.2); PLT 134 X1000 (130-400); RBC 2.87 XMIL (4.7-6.1); RDW 16.7 % (11.5-14.5)
[2019-05-28 07:35] LABS: IRON SATURATION 19 %; TIBC 171 ug/dL; TOTAL IRON 33 ug/dL (53-167); UNBOUND IRON 138 ug/dL (112-346)
[2019-05-28 07:40] LABS: CALCIUM 8.6 mg/dL (8.8-10.2); CREATININE 3.9 mg/dL (0.7-1.2)
[2019-05-28 07:54] LABS: FERRITIN 562 ng/mL (30-400)
[2019-05-28] MEDS: FOLIC ACID PO SCH (08:11)
[2019-05-28] MEDS: ICAR-C PO SCH (08:11)
[2019-05-28] MEDS: COLCRYS PO SCH (08:12)
[2019-05-28] MEDS: NEURONTIN PO SCH ×2 (08:12→22:44)
[2019-05-28] MEDS: LASIX PO SCH (08:12)
[2019-05-28] MEDS: COREG PO SCH ×2 (08:12→22:44)
[2019-05-28] MEDS: MIRALAX PO SCH ×2 (08:12→22:45)
[2019-05-28] MEDS ORDERED: ASPIRIN PO ONE (14:01)
[2019-05-28] MEDS: LOVENOX SUBQ SCH (15:16)
--- NOTE | 2019-05-28 15:35 | NEPHROLOGY PROGRESS NOTE ---
DATE: 05/28/2019 TIME SEEN: 0640. SUBJECTIVE: Mr. Stewart is currently resting quietly in bed. He is more awake and alert today, states that he is feeling better. OBJECTIVE: His temperature 98.7 degrees, blood pressure 114/50, heart rate 78, respirations 21. He is on room air. Last recorded saturation 99%. He has had 814 in, 1050 out to Diallo catheter. LABS: Sodium is 140, potassium is 5, chloride 104, CO2 22, BUN of 91, creatinine of 3.9, glucose of 82. Patient's anion gap is 14, calcium is 8.6. White count 9.10, hemoglobin 7.9, hematocrit 25, platelet count 134,000. The patient's iron is 33, TIBC 171, P sats are 19, ferritin 562, vitamin B12 880 with a folate of 28. PHYSICAL EXAM: This is a 63-year-old male. He is resting quietly in bed. He appears chronically ill. He is in no acute distress.Skin: Warm and dry. HEENT: Normocephalic, atraumatic. Conjunctivae pale. He has LYNDA. Mucous membranes are dry. Poor dentition. Neck: Supple. Trachea midline. No evidence of JVD in the upright position. Cardiovascular: He is regular rate and rhythm. S4 is present. Lungs: Clear to auscultation bilaterally. Equal excursion, now on room air. Abdomen: Soft, nontender, positive bowel sounds. Genitourinary: Not inspected. Diallo catheter is in place. Extremities: Has 1+ edema up into the hip region, left greater than right. Dressing remains intact to the left foot, inner aspect of the left leg. Neurological: Alert and oriented x2, person and place. ASSESSMENT AND PLAN: 1. Acute kidney injury on chronic kidney disease, stage IIIB 4. Patient's BUN and creatinine are improved today. BUN of 91, creatinine 3.9. 2. Electrolytes, acid-base balance. These are acceptable. 3. Anemia. This is low but stable. 4. Status post femoral-popliteal bypass with surgical removal of the first and second toe on the left, followed by Surgery and the primary care team. 5. I would to thank you for allowing us to follow with this patient. Dictated by CLAY Gary for Baron Lemon MD Face to face encounter, data reviewed, discussed with Amaris Grissom on 05/28/19. I agree with the above assessment and plan of care. cc: CLAY Gary MD [facility]
--- NOTE | 2019-05-28 15:39 | GENERAL SURGERY PROGRESS NOTE ---
DATE: 05/28/2019 SUBJECTIVE: Doing well, hematocrit is 25. His foot is warm. Dressing is clean. Creatinine is 3.9. White count normal at 9. No fevers. No tachycardia. I believe he is off the dobutamine. ASSESSMENT/PLAN: A 61-year-old gentleman status post left femoral popliteal bypass and toe amputations for necrosis. He is off his inotropic support, felt to be euvolemic. His hematocrit is at 25 and stable. His wounds are flat and clean. His foot is warm. We will continue wound care. Physical therapy and management per the hospitalist or roll skinner. cc: Elke Blandon MD
--- NOTE | 2019-05-28 18:04 | PROGRESS NOTE ---
DATE: 05/28/2019 SUBJECTIVE: The patient continues without chest discomfort or shortness of breath on room air. OBJECTIVE: Blood pressure 115/60, heart rate 66, oxygen saturation 94% on room air. There is jugular venous distention consistent with central venous pressure around 8-10. Chest is clear to auscultation. Cardiac exam reveals a regular rate and rhythm without appreciable murmur or gallop. Extremities are without edema. LABORATORY DATA: Includes a white blood cell count of 9.1, hematocrit 25.0, hemoglobin 7.9, platelet count 134,000. Sodium 140, potassium 5.0, chloride 104, carbon dioxide 22, BUN 91, creatinine 3.9 glucose 82. IMPRESSION: 1. Chronic systolic heart failure. Current volume status appears reasonable. 2. Severe cardiomyopathy with left ventricular ejection fraction of 20%. 3. Atherosclerotic coronary disease. The patient continues without angina. 4. Severe peripheral vascular disease, status post recent left femoral to popliteal bypass as well as amputation of left great toe due to gangrene. 5. Hypertension. 6. Chronic kidney disease. RECOMMENDATIONS: 1. Continue current cardiovascular regimen unchanged. 2. Resume aspirin p.o. daily as tolerated. cc: Eldon Robins MD
[2019-05-28] MEDS: OXY IR PO PRN (18:25)
[2019-05-28] MEDS: LIPITOR PO SCH (22:44)
[2019-05-28] MEDS: ROCEPHIN 1 GM in NS 50 ML IV SCH (22:45)
[2019-05-29] MEDS: DILAUDID IV PRN ×2 (02:19→12:15)
[2019-05-29] MEDS: ZOFRAN IV PRN (02:19)
--- NOTE | 2019-05-29 03:50 | PROGRESS NOTE ---
DATE: 05/28/2019 SUBJECTIVE: The patient is resting comfortably in bed. He is awake and alert, and has no complaints. OBJECTIVE: Vital Signs: Temperature 98.1 degrees, blood pressure 130/54, heart rate 65, respirations 14, O2 saturations 100% on 2 L nasal cannula. Intake 814, output 2.1 L. General: This is a chronically ill-appearing, elderly male, lying in bed in no acute distress. Heart: S1, S2. Normal. Regular rate and rhythm. Lungs: Equal air entry bilaterally. No wheezing. No rales. No rhonchi. Abdomen: Positive bowel sounds. Soft, nontender, nondistended. Extremities: No edema. The left foot is wrapped in a clean, dry dressing. Neurologic: The patient is alert and oriented x3. LABS: White blood cell count 9, hemoglobin 7.9, hematocrit 25, platelets 134,000. Sodium 140, potassium 5, BUN 91, creatinine 3.4, glucose 163. ASSESSMENT AND PLAN: 1. Metabolic encephalopathy. Improved. The patient is awake and alert. 2. Gross hematuria. Slightly improved today. Will continue to monitor closely. 3. Status post left femoral to above the knee popliteal bypass with transmetatarsal amputation of the 1st and 2nd toes, secondary to dry gangrene and osteomyelitis. Continue with wound care. General Surgery is following. 4. Acute on chronic systolic congestive heart failure exacerbation. Continue on the current cardiac regimen. 5. Acute kidney injury on chronic kidney disease. Stable. 6. Severe cardiomyopathy. Aware. 7. Severe peripheral vascular disease. Aware. 8. Uncontrolled diabetes mellitus type 2. Continue on the current insulin regimen. 9. Coronary artery disease. Continue on the current cardiac medications. 10. Iron deficiency anemia. Will start the patient on iron supplementation. 11. Disposition. The patient is stable for transfer to the surgical floor. Will also reconsult Physical Therapy to assist with ambulation. cc: Becka Segovia MD [facility]TD[facility]
[2019-05-29 07:22] LABS: HEMATOCRIT 25.9 % (42.0-52.0); HEMOGLOBIN 8.8 g/dL (14.0-18.0); MCH 30.1 PG (27-31); MCV 88.7 FL (81-99); MPV 10.9 FL (7.4-10.4); RBC 2.92 XMIL (4.7-6.1); RDW 17.2 % (11.5-14.5); WBC 9.03 X1000 (4.8-10.8)
[2019-05-29 08:14] LABS: ALBUMIN 2.3 g/dL (3.5-5.0); CALCIUM 8.8 mg/dL (8.8-10.2); CREATININE 3.5 mg/dL (0.7-1.2); PHOSPHORUS 4.8 mg/dL (2.7-4.5); POTASSIUM 4.7 mmol/L (3.5-5.1)
[2019-05-29] MEDS: ICAR-C PO SCH (09:25)
[2019-05-29] MEDS: COREG PO SCH ×2 (09:25→22:54)
[2019-05-29] MEDS: NEURONTIN PO SCH ×2 (09:25→22:54)
[2019-05-29] MEDS: COLCRYS PO SCH (09:25)
[2019-05-29] MEDS: FOLIC ACID PO SCH (09:25)
[2019-05-29] MEDS: ASPIRIN PO SCH (09:25)
[2019-05-29] MEDS: LASIX PO SCH (09:25)
[2019-05-29] MEDS: MIRALAX PO SCH ×2 (09:26→22:55)
--- NOTE | 2019-05-29 15:09 | NEPHROLOGY PROGRESS NOTE ---
DATE: 05/29/2019 SUBJECTIVE: He is having epistaxis this morning. No obvious bleeding at the time of my exam. Shortness of breath and swelling are about the same by his estimation. OBJECTIVE: Vital Signs: Blood pressure 121/53, heart rate 68, respirations 16, afebrile. Generally: No acute distress. Skin: Warm and dry. Neck: Neck veins are not appreciated. Heart: Regular with a murmur. Lungs: Equal. No crackles. Abdomen: Soft, nontender. Bowel sounds present. Extremities: 2+ edema primarily in the upper thighs. IMPRESSION: Chronic kidney disease. Baseline creatinine is around 2.5. He is slowly improving over the last 48 hours. Good urine output. He remains volume overloaded on exam but improving. cc: Baron Lemon MD
--- NOTE | 2019-05-29 15:43 | GENERAL SURGERY PROGRESS NOTE ---
DATE: 05/29/2019 SUBJECTIVE: About the same. He has been moved out to the floor. Hemodynamically has been stable. He is on room air, saturating in the mid 90s. OBJECTIVE: His left foot dressing is clean, just been changed. Incisions are flat. His leg is warm. LABORATORY: I reviewed his labs. Hematocrit is stable. White count is normal. Creatinine is 3.5, it has been a fluctuating number, but near his baseline. ASSESSMENT/PLAN: A 63-year-old gentleman, status post femoral to above-knee popliteal bypass. We will continue with local wound care, rehabilitation, medical management. cc: Elke Blandon MD
[2019-05-29] MEDS ORDERED: LASIX IV ONE (15:47)
[2019-05-29] MEDS: LOVENOX SUBQ SCH (16:48)
[2019-05-29] MEDS: OXY IR PO PRN (16:48)
--- NOTE | 2019-05-29 18:15 | PROGRESS NOTE ---
DATE: 05/29/2019 SUBJECTIVE: Patient continues without chest discomfort or dyspnea on room air. OBJECTIVE: Vital Signs: Blood pressure 128/54, heart rate 60, oxygen saturation 99% on room air. Jugular venous distention is evident consistent with elevated central venous pressure. Chest: Clear to auscultation. Cardiac: Reveals a regular rate and rhythm without appreciable murmur or gallop. Extremities: Without edema. LABORATORY DATA: Includes a white blood cell count 9.03, hematocrit 25.9, hemoglobin 8.8, platelet count 134,000. Sodium 139, potassium 4.7, chloride 101, carbon dioxide 23, BUN 92, creatinine 3.5, glucose 113, albumin 2.3. IMPRESSION: 1. Acute on chronic systolic heart failure. Volume status mildly increased today. 2. Severe cardiomyopathy with left ejection fraction 20%. 3. Atherosclerotic coronary disease. Patient continues without angina. 4. Severe peripheral vascular disease. Patient is status post recent left femoral to popliteal bypass as well as amputation of left great toe due to gangrene. 5. Hypertension. 6. Chronic kidney disease. RECOMMENDATIONS: 1. Continue current cardiovascular regimen unchanged. 2. Diuresed this evening with additional Lasix IV. 3. The patient appears to be making progress in his convalescence. I will revisit him again on Saturday. Dr. Palencia is available this weekend if needed. cc: Eldon Robins MD
--- NOTE | 2019-05-29 20:14 | PROGRESS NOTE ---
DATE: 05/29/2019 SUBJECTIVE: The patient is very talkative this morning. He is eating without any difficulty. He complains of pain in his left leg. OBJECTIVE: Vital Signs: Temperature 98.3 degrees, blood pressure 128/54, heart rate 60, respirations 16, O2 saturation is 99% on room air. General: This is an chronically ill- appearing, elderly male, lying in bed in no acute distress. Head: Normocephalic, atraumatic. Heart: S1, S2 normal. Regular rate and rhythm. Lungs: Equal air entry bilaterally. No wheezing. No rales. No rhonchi. Abdomen: Positive bowel sounds. Soft, nontender, nondistended. Extremities: No edema. No cyanosis. The left foot is wrapped in a clean dry dressing. Neurologic: The patient is alert and oriented x3. LABORATORY: White blood cell count 9, hemoglobin 8.8, hematocrit 25, platelets 134,000. Sodium 139, potassium 4.7, chloride 101, CO2 of 23, BUN 92, creatinine 3.5, glucose 113, albumin 2.3. ASSESSMENT AND PLAN: 1. Metabolic encephalopathy. Resolved. 2. Status post left femoral to [id number] popliteal bypass with transmetatarsal amputation of the first and second toe secondary to dry gangrene and osteomyelitis. Continue with wound care. 3. Acute on chronic systolic congestive heart failure exacerbation. Continue with diuretic therapy as directed by the compliance counsel. 4. Acute kidney injury on chronic kidney disease. Slowly improving. Nephrology is following. 5. Severe cardiomyopathy. Aware. 6. Diabetes mellitus type 2. Continue on the current insulin regimen. 7. Severe peripheral vascular disease. Aware. 8. Iron deficiency anemia. Continue with iron supplementation. 9. Coronary artery disease. Continue on the current cardiac medications. 10. Disposition. Continue with physical therapy. The patient likely needs inpatient rehab placement. Will consult with Cabin Service Agent to assist with placement. cc: Becka Segovia MD
[2019-05-29] MEDS: LIPITOR PO SCH (22:54)
[2019-05-30] MEDS: OXY IR PO PRN ×2 (02:03→09:18)
[2019-05-30 07:18] LABS: HEMATOCRIT 25.1 % (42.0-52.0); HEMOGLOBIN 7.7 g/dL (14.0-18.0); MCH 27.2 PG (27-31); MCHC 30.7 g/dL (33-37); MCV 88.7 FL (81-99); MPV 11.2 FL (7.4-10.4); RBC 2.83 XMIL (4.7-6.1); RDW 17.3 % (11.5-14.5); WBC 10.14 X1000 (4.8-10.8)
[2019-05-30 07:52] LABS: ALBUMIN 2.1 g/dL (3.5-5.0); CALCIUM 8.8 mg/dL (8.8-10.2); CREATININE 3.1 mg/dL (0.7-1.2); PHOSPHORUS 4.4 mg/dL (2.7-4.5); POTASSIUM 4.4 mmol/L (3.5-5.1)
[2019-05-30] MEDS: LASIX PO SCH (09:19)
[2019-05-30] MEDS: MIRALAX PO SCH ×2 (09:19→22:18)
[2019-05-30] MEDS: COREG PO SCH ×2 (09:19→22:18)
[2019-05-30] MEDS: COLCRYS PO SCH (09:19)
[2019-05-30] MEDS: ICAR-C PO SCH (09:19)
[2019-05-30] MEDS: ASPIRIN PO SCH (09:19)
[2019-05-30] MEDS: NEURONTIN PO SCH ×2 (09:19→22:18)
[2019-05-30] MEDS: FOLIC ACID PO SCH (09:22)
[2019-05-30] MEDS: DILAUDID IV PRN ×2 (11:21→22:19)
--- NOTE | 2019-05-30 15:50 | PROGRESS NOTE ---
DATE: 05/30/2019 SUBJECTIVE: The patient is sitting up in bed. He complains of persistent pain in his left leg. OBJECTIVE: Vital Signs: Temperature 98.7 degrees, blood pressure 112/39, heart rate 70, respirations 16, O2 saturation 96% on room air, intake 480, output 2 L. General: This is a chronically ill-appearing, elderly male, lying in bed in no acute distress. Heart: S1, S2 normal. Regular rate and rhythm. Lungs: Equal air entry bilaterally. No wheezing. No rales. No rhonchi. Abdomen: Positive bowel sounds. Soft, nontender, nondistended. Extremities: 1+ edema bilaterally. The left leg is wrapped in a clean dry dressing. Neurologic: The patient is alert and oriented x3. LABORATORY DATA: White blood cell count 10, hemoglobin 7.7, hematocrit 25, platelets 143,000. Sodium 140, potassium 4.4, chloride 102, CO2 24, BUN 94, creatinine 3.1, glucose 141, albumin 2.1. ASSESSMENT AND PLAN: 1. Metabolic encephalopathy. Resolved. 2. 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 Continue with wound care. 3. Acute on chronic systolic congestive heart failure exacerbation. Stable. Continue on the current cardiac medications. 4. Acute kidney injury on chronic kidney disease. Slowly improving. Nephrology is following. 5. Severe nonischemic dilated cardiomyopathy. Aware. 6. Severe peripheral vascular disease. Aware. 7. Diabetes mellitus type 2. Continue on the current insulin regimen. 8. Coronary artery disease. Continue on the current medications. 9. Iron deficiency anemia. Continue with iron supplementation. 10. Rectal impaction with constipation. Will ask the nurse to disimpact the patient. Continue on laxative therapy. 11. Disposition. The patient has agreed to be placed in inpatient rehab. We will consult with Office Support Specialist for placement. In the meantime, we will continue with physical therapy while hospitalized. cc: Becka Segovia MD MTDD
--- NOTE | 2019-05-30 17:05 | Diag Imaging Result Doc PS360 ---
ABDOMEN FLAT/UPRIGHT - 05/30/2019 INDICATION: abdominal pain COMPARISON: 04/20/2019 FINDINGS: There is significant rectal stool impaction with a 9 cm stool ball. There is constipation throughout the colon. No small bowel obstruction or free air. IMPRESSION: Constipation with rectal stool impaction. Electronically signed by Power Peralta 05/30/2019 5:03 PM
[2019-05-30] MEDS: LOVENOX SUBQ SCH (17:43)
[2019-05-30] MEDS ORDERED: FLEET MINERAL OIL ENEMA PR ONE (20:08)
[2019-05-30] MEDS: LIPITOR PO SCH (22:18)
[2019-05-31] MEDS: OXY IR PO PRN ×4 (04:14→23:40)
[2019-05-31 06:36] LABS: HEMOGLOBIN 7.4 g/dL (14.0-18.0); MCHC 30.8 g/dL (33-37); MCV 90.9 FL (81-99); MPV 10.6 FL (7.4-10.4); RBC 2.64 XMIL (4.7-6.1); RDW 17.5 % (11.5-14.5); WBC 10.82 X1000 (4.8-10.8)
[2019-05-31 07:05] LABS: CALCIUM 8.6 mg/dL (8.8-10.2); CREATININE 3.3 mg/dL (0.7-1.2); PHOSPHORUS 4.1 mg/dL (2.7-4.5); POTASSIUM 4.8 mmol/L (3.5-5.1)
[2019-05-31] MEDS: FOLIC ACID PO SCH (09:00)
[2019-05-31] MEDS: ICAR-C PO SCH (09:58)
[2019-05-31] MEDS: LASIX PO SCH (09:59)
[2019-05-31] MEDS: MIRALAX PO SCH (09:59)
[2019-05-31] MEDS: ASPIRIN PO SCH (09:59)
[2019-05-31] MEDS: COLCRYS PO SCH (09:59)
[2019-05-31] MEDS: NEURONTIN PO SCH ×2 (09:59→23:40)
[2019-05-31] MEDS: COREG PO SCH ×2 (09:59→23:40)
[2019-05-31 12:09] LABS: ALLEN TEST NO; BE 3.1 mmoll (-3.0-3.0); BLOOD TYPE ARTERIAL; HCO3-(ACT) 27.4 mmoll (20.0-26.0); O2(CT) 11.7 mL/dL (15.0-23.0); O2HB 96.9 % (95.0-99.0); PCO2(98.6) 47 mmHg (35-45); PO2(98.6) 122 mmHg (60-100); SAMPLE BLOOD; SAO2 100.1 % (95.0-100.0); THB 8.4 g/dL (11.5-17.4); pH(98.6) 7.39 (7.35-7.45)
[2019-05-31 12:10] LABS: MODALITY CANNULA
--- NOTE | 2019-05-31 13:42 | Diag Imaging Result Doc PS360 ---
ABDOMEN FLAT/UPRIGHT - 05/31/2019 INDICATION: constipation COMPARISON: 05/30/2019 FINDINGS: There has been decrease in the rectal stool impaction. There is overall decrease in the constipation. Nonobstructive bowel gas pattern. The stomach is somewhat distended however. IMPRESSION: Improvement in the constipation. The stomach is somewhat distended. Electronically signed by Power Peralta 05/31/2019 1:39 PM
--- NOTE | 2019-05-31 13:45 | Diag Imaging Result Doc PS360 ---
CHEST-PORTABLE - 05/31/2019 INDICATION: dyspnea COMPARISON: 05/28/2019 FINDINGS: Stable cardiomegaly. Stable pulmonary vascular congestion. There has been improvement in the right lower lobe infiltrate/atelectasis. Stable small right basilar pleural effusion. IMPRESSION: Improved aeration of the right lower lobe. Electronically signed by Power Peralta 05/31/2019 1:42 PM
[2019-05-31] MEDS: DILAUDID IV PRN (14:10)
[2019-05-31] MEDS: LOVENOX SUBQ SCH (17:00)
--- NOTE | 2019-05-31 18:27 | PROGRESS NOTE ---
DATE: 05/31/2019 SUBJECTIVE: The patient is resting comfortably in bed. He has no complaints. OBJECTIVE: Vital Signs: Temperature 98.2 degrees, blood pressure 106/48, heart rate 63, respirations 16, O2 saturation 94% on 2 L nasal cannula. General: This is a chronically ill- appearing elderly male sitting up in bed in no acute distress. Heart: S1, S2 normal. Regular rate and rhythm. Lungs: Equal air entry bilaterally. Diminished breath sounds at the bases. Abdomen: Positive bowel sounds. Soft, nontender, nondistended. Extremities: 1+ edema. The foot is wrapped in a clean dry dressing. Neurologic: The patient is alert and oriented x3. LABS: White blood cell count 10, hemoglobin 7.4, hematocrit 24, platelets 133,000. Sodium 140, potassium 4.8, chloride 102, CO2 27, BUN 92, creatinine 3.3, glucose 187, albumin 2. IMAGING: Chest x-ray shows improved aeration of the right lower lobe. ASSESSMENT AND PLAN: 1. Status post left femoral to [id number] popliteal bypass with transmetatarsal amputation of the 1st and 2nd toes. Continue with wound care. 2. Acute on chronic systolic congestive heart failure exacerbation. Stable. 3. Acute kidney injury on chronic kidney disease. Stable. 4. Severe nonischemic dilated cardiomyopathy. Aware. 5. Severe dilated cardiomyopathy. Aware. 6. Severe peripheral vascular disease. Aware. 7. Coronary artery disease. Continue on the current cardiac medications. 8. Diabetes mellitus type 2. Continue on the current insulin regimen. 9. Constipation. Continue with scheduled laxative therapy. 10. Iron-deficiency anemia. The patient's hemoglobin and hematocrit is a little bit lower today home. Continue with iron supplementation. DISPOSITION: Room Service Attendant has been consulted for inpatient rehab placement. Continue with physical therapy. cc: Becka Segovia MD MTDD
[2019-05-31] MEDS: LIPITOR PO SCH (23:40)
[2019-06-01] MEDS: MIRALAX PO SCH ×3 (03:46→22:24)
[2019-06-01] MEDS: OXY IR PO PRN ×2 (06:14→17:21)
[2019-06-01 06:57] LABS: HEMATOCRIT 24.2 % (42.0-52.0); HEMOGLOBIN 7.4 g/dL (14.0-18.0); MCHC 30.6 g/dL (33-37); MCV 91.7 FL (81-99); MPV 10.8 FL (7.4-10.4); RBC 2.64 XMIL (4.7-6.1); RDW 17.7 % (11.5-14.5); WBC 11.03 X1000 (4.8-10.8)
[2019-06-01 07:22] LABS: ALBUMIN 2.2 g/dL (3.5-5.0); CALCIUM 8.9 mg/dL (8.8-10.2); CREATININE 3.3 mg/dL (0.7-1.2); POTASSIUM 4.9 mmol/L (3.5-5.1)
[2019-06-01] MEDS: FOLIC ACID PO SCH (09:59)
[2019-06-01] MEDS: NEURONTIN PO SCH ×2 (10:00→22:22)
[2019-06-01] MEDS: ICAR-C PO SCH (10:00)
[2019-06-01] MEDS: LASIX PO SCH (10:00)
[2019-06-01] MEDS: COLCRYS PO SCH (10:00)
[2019-06-01] MEDS: COREG PO SCH ×2 (10:00→22:22)
[2019-06-01] MEDS: ASPIRIN PO SCH (10:00)
--- NOTE | 2019-06-01 14:13 | PROGRESS NOTE ---
DATE: 06/01/2019 SUBJECTIVE: The patient is resting comfortably in bed. He complains of pain in his left leg. OBJECTIVE: Vital Signs: Temperature 98.9 degrees, blood pressure 108/44, heart rate 71, respirations 14, O2 saturation is 99% on 2 L nasal cannula. Intake 1.1 L. Output 1.9 L. General: This is a chronically ill-appearing elderly male, sitting up in bed in no acute distress. Head: Normocephalic, atraumatic. Heart: S1, S2 normal. Regular rate and rhythm. Lungs: Equal air entry bilaterally. No wheezing, no rales. Abdomen: Positive bowel sounds. Soft, nontender, nondistended. Extremities: 1+ edema bilaterally. The patient's left foot is wrapped in a clean dry dressing. Neurologic: The patient is alert and oriented x3. LABORATORY DATA: White blood cell count 11, hemoglobin 7.4, hematocrit 24, platelets 138,000. Sodium 143, potassium 4.9, chloride 105, CO2 of 28, BUN 97, creatinine 3.3, glucose 136, albumin 2.2. ASSESSMENT AND PLAN: 1. Pneumonia. Will order blood and sputum cultures and start antibiotic therapy. 2. Status post left femoral to [id number] popliteal bypass with transmetatarsal amputation of the 1st and 2nd toes. Continue with wound care. 3. Acute on chronic systolic congestive heart failure exacerbation. Continue with diuretic therapy as directed by the qc lab technician. 4. Acute kidney injury on chronic kidney disease. Stable. Nephrology is following. 5. Severe dilated cardiomyopathy. Aware. 6. Severe peripheral vascular disease. Aware. 7. Coronary artery disease. Continue on the current cardiac medication regimen. 8. Diabetes mellitus, type 2. Continue on the current insulin regimen. 9. Iron deficiency anemia. The patient's hemoglobin and hematocrit are low, but stable. Continue with iron supplementation. 10. Leukocytosis. We will check a CT thorax since the patient's white blood cell count is increasing. The chest x-ray from yesterday shows a right lower lobe infiltrate versus atelectasis. DISPOSITION: The patient will be discharged to inpatient rehabilitation once a bed is available. cc: MD PILO Espinoza
--- NOTE | 2019-06-01 14:43 | Diag Imaging Result Doc PS360 ---
CT THORAX W/O CONTRAST - 06/01/2019 INDICATION: pneumonia COMPARISON: 01/21/2019, 05/31/2019 FINDINGS: There is a small to moderate right pleural effusion. This measures about 4 cm in depth. There is significant cardiomegaly. There is dense infiltrate in the right middle lobe. There is some mild dependent atelectasis in both lower lobes. Airways are clear. There is stable severe cardiomegaly. Anemia is present. There is severe vascular calcification the upper abdomen. No acute abnormality in the upper abdomen. There are moderate degenerative changes of the spine. No acute or suspicious bony lesion. IMPRESSION: 1. Dense infiltrate in the right middle lobe concerning for pneumonia. 2. Moderate right pleural effusion. 3. Severe cardiomegaly. This exam was performed using automated exposure control, adjustment of mA or kV according to patient size, and/or use of iterative reconstruction technique Electronically signed by Power Peralta 06/01/2019 2:41 PM
[2019-06-01] MEDS ORDERED: LASIX IV ONE (14:51)
[2019-06-01] MEDS: DUONEB (A & A) INH SCH ×2 (16:55→19:17)
[2019-06-01] MEDS: ZOSYN 2.25 GM in NS 50 ML IV SCH (17:23)
[2019-06-01] MEDS: LOVENOX SUBQ SCH (17:23)
--- NOTE | 2019-06-01 18:43 | PROGRESS NOTE ---
DATE: 06/01/2019 SUBJECTIVE: Patient continues without chest discomfort or dyspnea. He is resting comfortably. OBJECTIVE: Vital signs: Blood pressure 108/44, heart rate 71 and regular, oxygen saturation 99%. Neck: Jugular venous pressure estimated to be 8 to 10 cm based on inspection of neck veins. Chest: Clear to auscultation. Cardiac Exam: Reveals a regular rate and rhythm without appreciable murmur or gallop. Extremities: Without edema. LABORATORY DATA: Includes a white blood cell count of 11.03, hematocrit 24.2, hemoglobin 7.4, platelet count 138,000. Sodium 143, potassium 4.9, chloride 105, carbon dioxide 28, BUN 97, creatinine 3.3, glucose 136. IMPRESSION: 1. Acute on chronic systolic heart failure. Volume status mildly increased based on mild elevation of central venous pressure. 2. Severe cardiomyopathy with left ejection fraction of 20%. 3. Atherosclerotic coronary disease. Patient continues without angina. 4. Severe peripheral vascular disease. Patient is status post left femoral-popliteal bypass as well as amputation of left great toe due to gangrene. 5. Hypertension. 6. Chronic kidney disease. RECOMMENDATIONS: 1. Continue cardiovascular regimen unchanged. 2. Diurese with additional IV Lasix this afternoon. cc: Eldon Robins MD
[2019-06-01 19:11] LABS: URINE SOURCE CATH
[2019-06-01 19:16] LABS: BILIRUBIN URINE NEGATIVE (NEGATIVE); BLOOD URINE MODERATE (NEGATIVE); COLOR YELLOW; GLUCOSE URINE NEGATIVE (NEGATIVE); KETONE URINE NEGATIVE (NEGATIVE); LEUKOCYTES URINE NEGATIVE (NEGATIVE); NITRITE URINE NEGATIVE (NEGATIVE); PROTEIN URINE 100 mg/dL (NEGATIVE); SP GRAVITY URINE 1.011; TURBIDITY URINE HAZY (CLEAR); UROBILINOGEN URINE 2 mg/dL (NORMAL)
[2019-06-01 19:26] LABS: UR EPITHELIAL CELLS <10 /HPF (<10); URINE BACTERIA NEGATIVE /HPF; URINE WBC <10 /HPF (<10)
[2019-06-01 19:41] LABS: URINE RBC TNTC /HPF (<10)
--- NOTE | 2019-06-01 21:06 | GENERAL SURGERY PROGRESS NOTE ---
DATE: 06/01/2019 SUBJECTIVE: Doing okay. He is still a little confused at times. DIAGNOSTIC STUDIES: White count 11, hematocrit 24. Creatinine is 3.3, glucoses have fluctuated but for the most part been under 200, albumin is 2.2. OBJECTIVE: His left groin distal thigh incisions are intact. His left foot wound seems to be healing. No purulence. No cellulitis. ASSESSMENT AND PLAN: A 63-year-old gentleman with peripheral vascular disease status post femoral to above-knee popliteal bypass and amputation of first and second toes. We will continue local wound care and medical management. cc: Elke Blandon MD
--- NOTE | 2019-06-01 21:18 | NEPHROLOGY PROGRESS NOTE ---
DATE: 06/01/2019 SUBJECTIVE: He is asleep but arousable. Lying flat. No shortness of breath. OBJECTIVE: Vital Signs: Blood pressure 108/44, heart rate 71, respirations 14, afebrile. Intake 1.1 L. Output 2 L. General: No acute distress. Skin: Warm and dry. Neck: Neck veins are distended and bounding. Heart: Regular with gallop and murmur. Lungs: Equal. No crackles. Abdomen: Soft, nontender. Extremities: Have 2+ edema especially in the left hip. No clubbing or cyanosis. IMPRESSION: Acute kidney injury overlying chronic kidney disease. His baseline creatinine is around 2.5. Peak at 4.2 on the 30th. He is in net negative fluid balance of over 15 L if the chart is accurate. He is currently on oral diuretic therapy, and we will continue this without change. cc: Baron Lemon MD
[2019-06-01] MEDS: DILAUDID IV PRN (22:21)
[2019-06-01] MEDS: LIPITOR PO SCH (22:22)
[2019-06-01] MEDS: ZYVOX PO SCH (22:22)
[2019-06-02] MEDS: ZOSYN 2.25 GM in NS 50 ML IV SCH ×3 (00:42→16:02)
[2019-06-02] MEDS: DUONEB (A & A) INH SCH ×6 (02:46→23:29)
[2019-06-02] MEDS: OXY IR PO PRN ×3 (04:49→13:23)
[2019-06-02 07:05] LABS: HEMATOCRIT 25.6 % (42.0-52.0); HEMOGLOBIN 7.8 g/dL (14.0-18.0); MCH 28.1 PG (27-31); MCHC 30.5 g/dL (33-37); MCV 92.1 FL (81-99); MPV 10.9 FL (7.4-10.4); RBC 2.78 XMIL (4.7-6.1); RDW 17.9 % (11.5-14.5); WBC 11.83 X1000 (4.8-10.8)
[2019-06-02 07:15] LABS: ALBUMIN 1.9 g/dL (3.5-5.0); CALCIUM 8.8 mg/dL (8.8-10.2); CREATININE 3.1 mg/dL (0.7-1.2); PHOSPHORUS 3.8 mg/dL (2.7-4.5); POTASSIUM 4.4 mmol/L (3.5-5.1)
[2019-06-02] MEDS: ICAR-C PO SCH (08:12)
[2019-06-02] MEDS: ASPIRIN PO SCH (08:12)
[2019-06-02] MEDS: COLCRYS PO SCH (08:12)
[2019-06-02] MEDS: COREG PO SCH ×3 (08:12→21:54)
[2019-06-02] MEDS: ZYVOX PO SCH ×2 (08:12→21:54)
[2019-06-02] MEDS: LASIX PO SCH (08:12)
[2019-06-02] MEDS: FOLIC ACID PO SCH (08:19)
--- NOTE | 2019-06-02 08:48 | NEPHROLOGY PROGRESS NOTE ---
DATE: 06/02/2019 SUBJECTIVE: He is about the same. Lying in bed. Hoping for discharge. OBJECTIVE: Vital signs: Blood pressure 95/40, heart rate 70, respirations 16, afebrile. Intake 500 mL, output 1.8 L. PHYSICAL EXAMINATION: No acute distress. Skin is warm and dry. Neck veins are not distended. Heart is regular. Lungs are clear. Abdomen benign. Extremities: 1+ edema. IMPRESSION: Chronic kidney disease stage 4 for overlying acute kidney injury. Creatinine is slowly trending downward. Baseline 2.5. Okay for discharge from my perspective. Electrolytes/acid base/volume status acceptable. cc: Baron Lemon MD
[2019-06-02] MEDS: MIRALAX PO SCH (09:11)
[2019-06-02] MEDS: NEURONTIN PO SCH ×2 (09:31→21:54)
[2019-06-02] MEDS: LOVENOX SUBQ SCH (16:03)
--- NOTE | 2019-06-02 17:07 | PROGRESS NOTE ---
DATE: 06/02/2019 INTERVAL HISTORY: The patient's dyspnea is significantly improved. Weaning off oxygen. No acute events overnight. No new complaints. REVIEW OF SYSTEMS: Twelve point review of systems negative except as per interval history. LABS: WBC 11.8, hemoglobin 7.8, hematocrit 25.6, platelets 129,000. Sodium 140, potassium 4.4, BUN 102, creatinine 3.1, glucose 159 to 254, albumin 1.9. VITALS: T-max 98.9 degrees, pulse 65, respirations 16, blood pressure 107/58, O2 saturation 93% on 2 L by nasal cannula. PHYSICAL EXAMINATION: General: No acute distress. Vitals: As above. HEENT: Normocephalic, atraumatic. Moist mucous membranes. No cervical adenopathy. Cardiovascular: Regular rate and rhythm. Pulmonary: Clear to auscultation bilaterally. No wheezing or rales. Minimal bibasilar crackles. Abdomen: Soft, nontender, nondistended. Bowel sounds positive. Extremities: Peripheral pulses intact. There is 1 to 2+ pitting edema bilaterally. Neurologic: Cranial nerves grossly intact. No focal deficits. Mild global weakness. Psychiatric: Awake, alert, oriented x3. Skin: No new rashes or lesions identified. ASSESSMENT AND PLAN: 1. Acute on chronic systolic congestive heart failure. Much improved at this point. Respiratory status approaching baseline. May be able to wean off oxygen entirely today. Continue diuresis for now but doing pretty well on this front. 2. Pneumonia, newly identified on CT yesterday. Started on antibiotics with Zosyn and Zyvox. White count fairly minimal. Afebrile. Does not appear to be impacting his oxygenation to large degree, so hopefully in another day or 2 can transition to p.o. antibiotics. Continue antibiotics as is for now. 3. Acute kidney injury on CKD 3. Creatinine has trended up as high as 4.2. Baseline appears to be around 2.5 or slightly above, down to 3.1 today. Appears to be tolerating diuresis. Continue to monitor. 4. Peripheral vascular disease. The patient is status post femoral-popliteal and left toe amputation x 2. Appears to be doing okay on this front. 5. Known coronary artery disease. Continue aspirin and statin. 6. Diabetes. Control is not ideal. We will place on sliding scale insulin and monitor. 7. Anemia, likely anemia of chronic disease. Blood counts pretty stable here. Most recent iron studies with some possible minimal iron deficiency but most consistent with chronic disease.
[2019-06-02] MEDS: LIPITOR PO SCH (21:54)
[2019-06-02] MEDS: HUMALOG SUBQ SCH (21:55)
[2019-06-03] MEDS: ZOSYN 2.25 GM in NS 50 ML IV SCH ×3 (00:37→18:21)
[2019-06-03] MEDS: MIRALAX PO SCH ×3 (00:37→22:37)
[2019-06-03] MEDS: DUONEB (A & A) INH SCH ×4 (03:33→21:43)
[2019-06-03] MEDS: HUMALOG SUBQ SCH ×4 (06:40→22:39)
--- NOTE | 2019-06-03 06:54 | Diag Imaging Result Doc PS360 ---
CHEST-PORTABLE - 06/03/2019 INDICATION: dyspnea COMPARISON: 05/31/2019 FINDINGS: There is worsening infiltrate at the right lung base with loss of the hemidiaphragm. There is probably a small effusion here as well. Stable cardiomegaly and pulmonary vascular congestion. IMPRESSION: Worsening opacification at the right lung base. Electronically signed by Power Peralta 06/03/2019 6:52 AM
[2019-06-03 07:10] LABS: ALBUMIN 1.9 g/dL (3.5-5.0); CALCIUM 8.7 mg/dL (8.8-10.2); CREATININE 3.2 mg/dL (0.7-1.2); PHOSPHORUS 4.4 mg/dL (2.7-4.5)
[2019-06-03 07:42] LABS: HEMATOCRIT 23.8 % (42.0-52.0); HEMOGLOBIN 7.1 g/dL (14.0-18.0); MCH 27.1 PG (27-31); MCHC 29.8 g/dL (33-37); MCV 90.8 FL (81-99); MPV 10.9 FL (7.4-10.4); RBC 2.62 XMIL (4.7-6.1); RDW 17.6 % (11.5-14.5); WBC 12.64 X1000 (4.8-10.8)
[2019-06-03] MEDS: ZYVOX PO SCH ×2 (08:13→22:37)
[2019-06-03] MEDS: COLCRYS PO SCH (08:13)
[2019-06-03] MEDS: COREG PO SCH ×2 (08:13→22:39)
[2019-06-03] MEDS: ICAR-C PO SCH (08:14)
[2019-06-03] MEDS: FOLIC ACID PO SCH (08:14)
[2019-06-03] MEDS: NEURONTIN PO SCH ×2 (08:14→22:38)
[2019-06-03] MEDS: LASIX PO SCH (08:14)
[2019-06-03] MEDS: ASPIRIN PO SCH (08:15)
[2019-06-03] MEDS: OXY IR PO PRN ×4 (08:31→22:38)
--- NOTE | 2019-06-03 14:05 | NEPHROLOGY PROGRESS NOTE ---
DATE: 06/03/2019 Times seen 0712 Subjective: patient lying in bed resting. Responds to verbal stimuli voices he is OK and had a good night. Objective: Vital signs. Temperature 98.8, pulse 67, respiration 16, blood pressure 107/43, 100% on 2 L nasal cannula. General: chronically ill appearing -[place] male sitting up in bed in no acute distress Skin: paula noted to left upper thigh. Lungs: clear to auscultation equal air excursion. Cardiovascular regular rate and rhythm soft murmur heard to right midclavicular 2nd ICS. Abdomen: soft nontender nondistended. Bowel sounds present. Extremities: 2+ pitting edema to bilateral lower extremities : fully in place.Non-inspected. Neurological: alert and oriented x3 Impression: Chronic kidney disease stage four overlying acute kidney injury. Creatinine Continues to trend downward. Baseline 2.5. OK for discharge from our perspective. We have scheduled him a follow up appointment in our office for 06/24/2019 at 10am. Electrolytes. In target. Acid base balance. In target. Volume status. Slightly fluid overloaded. However this is normal and stable for this patient. cc: Baron Lemon MD MTDD
--- NOTE | 2019-06-03 14:45 | PROGRESS NOTE ---
DATE: 06/03/2019 INTERVAL HISTORY: Patient is essentially stable. No dyspnea at rest. Still some mild dyspnea on exertion. Continues to deny any significant cough. Afebrile overnight. Blood pressure remains on the low side of normal but stable. No new complaints. No acute events. REVIEW OF SYSTEMS: Twelve point review of systems negative except as per interval history. LABORATORY: WBC 12.6, hemoglobin 7.1, hematocrit 23.8. Sodium 142, potassium 5, BUN 104, creatinine 3.2, glucose 135 to 254, albumin 1.9. IMAGING: Chest x-ray with minimally worsened opacification at the right lung base. VITALS: T-max 98.9 degrees, pulse 65, respirations 16, blood pressure 103/41, O2 saturation 100% on 3 L by nasal cannula. PHYSICAL EXAMINATION: General: No acute distress. Vitals: As above. HEENT: Normocephalic, atraumatic. Moist mucous membranes. No cervical adenopathy. Cardiovascular: Regular rate and rhythm. No murmurs noted. Pulmonary: Still with minimal bibasilar crackles but otherwise remains clear to auscultation bilaterally. Abdomen: Soft, nontender, nondistended. Bowel sounds positive. Extremities: Peripheral pulses intact, 1+ pitting edema bilaterally, stable to minimally improved. Neurologic: Cranial nerves grossly intact. No focal deficits. Mild global weakness. Psychiatric: Awake, alert, oriented x3. Skin: No new rashes or lesions identified. ASSESSMENT AND PLAN: 1. Acute on chronic systolic congestive heart failure. Much improved. Still requiring a little bit of oxygen but some room to wean and respiratory status approaching baseline. Has had excellent diuresis and is down almost 19 liters over the course of hospitalization. Continue on current dose of Lasix and monitor. 2. Pneumonia newly identified on CT 06/01. Started on antibiotics with Zosyn and Zyvox. Clinically pretty stable, but has had some slight increase in white count and possibly slight worsening on chest x-ray today. Given only minimal changes in white count and x-ray and clinical stability and no fevers, will continue current antibiotics for now, but if he develops fever, worsening dyspnea, worsening hypoxia, or other sign of uncontrolled infection, then we will likely change antibiotics, repeat CT chest and consult Infectious Disease. 3. Acute kidney injury on chronic kidney disease 3. Creatinine up a size 4.2. Baseline appears to be 2.5, but his creatinine has been stable around 3 for several days. Tolerating diuresis. May be his new baseline. Nephrology has been following. 4. Peripheral vascular disease. Patient is status post femoral-popliteal bypass and left toe amputation x2. Doing well. 5. Coronary artery disease, continue aspirin and statin. 6. Diabetes. Still some occasional elevations, but overall improved control. Continue to monitor. Depending on what his glucose does, may add some low-dose basal insulin tomorrow. 7. Anemia, likely anemia of chronic disease. Most recent iron studies not very impressive for iron deficiency. Does have a little bit of downtrend in his blood counts today, but no signs or symptoms of active bleeding. Continue to monitor for now, but will consider transfusion if there is any significant worsening of his blood counts. DISPOSITION: Continuing efforts at weaning and monitoring to make sure this pneumonia appears to be getting under control. If he has continued increase in white count and/or fever or increased O2 requirements, will likely need change in antibiotics, ID consult and repeat CT chest. If things begin to improve, then may be stable for discharge to rehab in the next 24 to 48 hours.
[2019-06-03 14:55] LABS: HEMATOCRIT 25.5 % (42.0-52.0); HEMOGLOBIN 7.4 g/dL (14.0-18.0)
[2019-06-03] MEDS: LOVENOX SUBQ SCH (18:21)
--- NOTE | 2019-06-03 19:09 | PROGRESS NOTE ---
DATE: 06/03/2019 SUBJECTIVE: Patient continues without shortness of breath or chest discomfort on room air. OBJECTIVE: Blood pressure 114/41, heart rate 67, and oxygen saturation 98%. Neck: Jugular venous distention suggests mildly elevated central venous pressure. Chest: Clear to auscultation bilaterally. Cardiac: Reveals a regular rate and rhythm without appreciable murmur or gallop. Extremities: Demonstrate mild edema. LABORATORY DATA: White blood cell count 12.64, hematocrit 25.5, hemoglobin 7.4 and platelet count 143,000. Sodium 142, potassium 5.0, chloride 105, carbon dioxide 25, BUN 104, creatinine 3.2, glucose 133, and albumin 1.9. IMPRESSION: 1. Chronic systolic heart failure. Volume status mildly increased based on mild elevation of central venous pressure. 2. Severe cardiomyopathy with left ventricular ejection fraction of 20%. 3. Atherosclerotic coronary disease. Patient continues without angina. 4. Severe peripheral vascular disease with recent left femoral to popliteal bypass along with amputation left great toe due to gangrene. 5. Chronic kidney disease. 6. Hypertension. RECOMMENDATIONS: 1. Continue current cardiovascular regimen unchanged. Volume status appears reasonable for him. 2. Okay from my standpoint for him to be discharged in the next 24 hours. cc: Eldon Robins MD
[2019-06-03] MEDS: LIPITOR PO SCH (22:37)
[2019-06-04] MEDS: ZOSYN 2.25 GM in NS 50 ML IV SCH ×4 (00:23→23:28)
[2019-06-04] MEDS: DUONEB (A & A) INH SCH ×4 (03:39→21:19)
[2019-06-04 06:33] LABS: BASO# 0.01 X1000 (0.0-0.2); BASO% 0.1 % (0.0-0.8); EOS# 0.15 X1000 (0.0-0.7); EOS% 1.2 % (0.0-10.0); HEMATOCRIT 23.4 % (42.0-52.0); IMM GRAN# 0.04 X1000 (0.0-0.04); IMM GRAN% 0.3 % (0.0-0.5); LYMPH% 11.1 % (20.5-51.1); MCH 27.5 PG (27-31); MCHC 29.9 g/dL (33-37); MCV 91.8 FL (81-99); MONO# 1.18 X1000 (0.11-0.59); MONO% 9.4 % (1.7-9.3); MPV 10.9 FL (7.4-10.4); NEUT# 9.82 X1000 (1.4-6.5); NEUT% 77.9 % (42.2-75.2); PLT 159 X1000 (130-400); RBC 2.55 XMIL (4.7-6.1); RDW 17.7 % (11.5-14.5)
[2019-06-04 06:51] LABS: CALCIUM 9.1 mg/dL (8.8-10.2); CREATININE 3.5 mg/dL (0.7-1.2); POTASSIUM 5.1 mmol/L (3.5-5.1)
[2019-06-04] MEDS: OXY IR PO PRN ×4 (08:27→22:29)
[2019-06-04] MEDS: COLCRYS PO SCH (08:31)
[2019-06-04] MEDS: NEURONTIN PO SCH ×2 (08:31→22:28)
[2019-06-04] MEDS: LASIX PO SCH (08:31)
[2019-06-04] MEDS: FOLIC ACID PO SCH (08:31)
[2019-06-04] MEDS: ICAR-C PO SCH (08:32)
[2019-06-04] MEDS: ZYVOX PO SCH ×2 (08:32→22:28)
[2019-06-04] MEDS: ASPIRIN PO SCH (08:32)
[2019-06-04] MEDS: MIRALAX PO SCH ×2 (08:32→22:33)
[2019-06-04] MEDS: HUMALOG SUBQ SCH ×4 (08:34→22:33)
[2019-06-04] MEDS: COREG PO SCH ×2 (08:37→22:28)
[2019-06-04] MEDS ORDERED: NS 500 ML ONE (08:52)
--- NOTE | 2019-06-04 09:53 | Diag Imaging Result Doc PS360 ---
CHEST-PORTABLE - 06/04/2019 INDICATION: dyspnea COMPARISON: 06/03/2019 FINDINGS: Stable cardiomegaly and pulmonary vascular congestion. There is improvement in the small right basilar infiltrate with better visualization of the right hemidiaphragm. Stable trace right pleural effusion. The left lung is clear of infiltrate. No new abnormalities. IMPRESSION: Improved aeration of the right lung base. Electronically signed by Power Peralta 06/04/2019 9:50 AM
--- NOTE | 2019-06-04 11:39 | NEPHROLOGY PROGRESS NOTE ---
DATE: 06/04/2019 Subjective: patient lying in bed resting in no distress. He denies shortness of breath, orthopnea, morning sickness, nausea and vomiting, changes in appetite, and chest pain. Objective: Vital signs. Temperature 97.6, pulse 72, respirations 20, blood pressure 127/50, 97% sat on 2 L nasal cannula. General: chronically ill appearing -[place] male lying in bed in no acute distress Skin: paula noted to left upper thigh. HEENT: A traumatic, normocephalic. Conjunctiva are pink. Pupils equal round and reactive. Neck: jugular vein distention noted, less pronounced from yesterday. Lungs: clear to auscultation equal air excursion. Cardiovascular: S1, S2, S4, with gallop present. Abdomen: soft nontender nondistended. Bowel sounds active. Extremities: 1+ pitting edema to BLE. : Diallo in place.Non-inspected. Neurological: alert and oriented x3 Labs: WBC 12.6, RBC 2.55, hemoglobin seven, hematocrit 23.4, platelet count 159, sodium 141, potassium 5.1, chloride 103, carbon dioxide 26, and I get 12, BUN 110, creatinine 3.5, estimated GFR 22, calcium 9.1. Intake 960, output 1000. Impression: Chronic kidney disease stage four with overlying acute kidney injury. He has cardiorenal syndrome. Creatinine today 3.5 which is stable but elevated from 2.5 baseline. OK for discharge from our perspective. We have scheduled him a follow up appointment in our office for 06/24/2019 at 10am. Electrolytes. In target. Acid base balance. In target. Anemia. Chronic. Stable. Volume status. Clinical exam improved, modest negative fluid balance noted. cc: Baron Lemon MD [facility]
--- NOTE | 2019-06-04 15:01 | PROGRESS NOTE ---
DATE: 06/04/2019 INTERVAL HISTORY: Patient's respiratory status is pretty stable at this point. No signs or symptoms of bleeding. Complains primarily of sore buttocks. No new complaints. No acute events overnight. REVIEW OF SYSTEMS: Twelve point review of systems negative except as per interval history. LABORATORY: WBC 12.6, hemoglobin 7, hematocrit 23.4. Basic metabolic panel significant for BUN 110, creatinine 3.5, glucose 119-174. VITALS: T-max 96.6 degrees, pulse 72, respirations 18, blood pressure 118/64, O2 saturation 100% on 2 L by nasal cannula. PHYSICAL EXAMINATION: General: No acute distress. Vitals: As above. HEENT: Normocephalic, atraumatic. Moist mucous membranes. No cervical adenopathy. Cardiovascular: Regular rate and rhythm. No murmurs noted. Pulmonary: Largely clear to auscultation at this point. Abdomen: Soft, nontender, nondistended. Bowel sounds positive. Extremities: Peripheral pulses intact. Stable 1+ pitting edema bilaterally. Neurologic: Cranial nerves grossly intact. No focal deficits. Mild global weakness. Psychiatric: Awake, alert, oriented to person and place but not time. Largely cooperative. Skin: No new rashes or lesions identified. ASSESSMENT AND PLAN: 1. Acute on chronic systolic congestive heart failure, much improved. Still on oxygen, but can likely be weaned off entirely. Continue current dose of Lasix and monitor. 2. Acute kidney injury on chronic kidney disease 3. Creatinine of as high as 4.2. Baseline appears to be 2.5, but has been hovering around 3 for several days. Slight up trend today, so will likely go ahead and transfuse as below, but likely no need for further intervention. 3. Anemia, likely anemia of chronic disease, but given tenuous cardiac status and bump in creatinine, we will go ahead and transfuse 1 unit today. 4. Pneumonia, newly identified on CT 06/01, started on antibiotics with Zosyn and Zyvox. Chest x- ray improved. Oxygenation stable. No fevers and minimal leukocytosis so, likely okay to transition to p.o. antibiotics on discharge. 5. Peripheral vascular disease. Patient is status post femoral-popliteal bypass and left toe amputation x2, doing well. 6. Coronary artery disease. Continue aspirin and statin. 7. Diabetes. Acceptable control overall. DISPOSITION: Transfusing 1 unit as above, but essentially off of oxygen. Chest x-ray improved. We will plan on transitioning to p.o. antibiotics and discharging to rehab in the morning pending bed availability.
[2019-06-04] MEDS: LOVENOX SUBQ SCH (17:13)
[2019-06-04] MEDS: LIPITOR PO SCH (22:28)
[2019-06-05] MEDS: DUONEB (A & A) INH SCH ×2 (03:24→10:33)
[2019-06-05 06:44] LABS: BASO# 0.02 X1000 (0.0-0.2); BASO% 0.2 % (0.0-0.8); EOS# 0.12 X1000 (0.0-0.7); EOS% 0.9 % (0.0-10.0); HEMATOCRIT 28.5 % (42.0-52.0); HEMOGLOBIN 8.6 g/dL (14.0-18.0); IMM GRAN# 0.04 X1000 (0.0-0.04); IMM GRAN% 0.3 % (0.0-0.5); LYMPH# 1.23 X1000 (1.2-3.4); LYMPH% 9.4 % (20.5-51.1); MCH 27.3 PG (27-31); MCHC 30.2 g/dL (33-37); MCV 90.5 FL (81-99); MONO# 1.09 X1000 (0.11-0.59); MONO% 8.3 % (1.7-9.3); MPV 10.4 FL (7.4-10.4); NEUT# 10.64 X1000 (1.4-6.5); NEUT% 80.9 % (42.2-75.2); PLT 140 X1000 (130-400); RBC 3.15 XMIL (4.7-6.1); RDW 17.5 % (11.5-14.5); WBC 13.14 X1000 (4.8-10.8)
[2019-06-05] MEDS: HUMALOG SUBQ SCH (06:58)
[2019-06-05 07:03] LABS: CALCIUM 8.9 mg/dL (8.8-10.2); CREATININE 3.6 mg/dL (0.7-1.2); POTASSIUM 5.2 mmol/L (3.5-5.1)
[2019-06-05] MEDS: ZOSYN 2.25 GM in NS 50 ML IV SCH (09:21)
[2019-06-05] MEDS: NEURONTIN PO SCH (09:23)
[2019-06-05] MEDS: ZYVOX PO SCH (09:23)
[2019-06-05] MEDS: COLCRYS PO SCH (09:23)
[2019-06-05] MEDS: ASPIRIN PO SCH (09:24)
[2019-06-05] MEDS: OXY IR PO PRN (09:24)
[2019-06-05] MEDS: FOLIC ACID PO SCH (09:24)
[2019-06-05] MEDS: COREG PO SCH (09:24)
[2019-06-05] MEDS: ICAR-C PO SCH (09:25)
[2019-06-05] MEDS: MIRALAX PO SCH (09:25)
--- NOTE | 2019-06-05 10:03 | DISCHARGE SUMMARY ---
ADMISSION DATE: 05/11/2019 DISCHARGE DATE: 06/05/2019 CONSULTATIONS: 1. Cardiology, Dr. Robins. 2. General Surgery, Dr. Prasad and Dr. lBandon. 3. Nephrology, Dr. Lemon. PERTINENT STUDIES: 1. Initial chest x-ray: Fairly large right pleural effusion, pulmonary edema, thoracentesis under ultrasound with 1100 mL of straw-colored fluid. 2. Multiple subsequent chest x-rays with continued edema. 3. Chest CT 06/01 with dense infiltrate in the right middle lobe, most consistent with pneumonia. 4. Final chest x-ray with improved aeration of right lung base. Minimal pulmonary vascular congestion. Stable trace right pleural effusion. LABS: Discharge blood counts 8.6 and 28.5 hemoglobin and hematocrit. Discharge creatinine 3.6. PROCEDURES: Left femoral-popliteal bypass and amputation of left 1st and 2nd toes. DISCHARGE DIAGNOSES: 1. Peripheral vascular disease, which was severe. 2. Acute on chronic congestive heart failure. 3. Acute kidney injury on chronic kidney disease III-IV. 4. Coronary artery disease. 5. Diabetes. 6. Pneumonia. 7. Anemia, both iron deficiency anemia and anemia of chronic disease. 8. Osteomyelitis and foot ulcer. HOSPITAL COURSE: The patient presented initially on 05/11 complaining primarily of foot pain. He was found to have erosion of the distal right toe and infection with osteomyelitis. He was found to have fairly severe peripheral vascular disease for which femoral-popliteal bypass was performed, but he also required amputation of the 2 most affected toes. He did well from a surgical perspective. His wounds healed well. He had no complications postop. He was also found to have fairly significant right pleural effusion, likely related to his congestive heart failure. This required thoracentesis with approximately 1100 mL off. With thoracentesis and fairly aggressive diuresis, his breathing improved. He did require a fair amount of oxygen at one point, which improved with diuresis. At one point, his oxygenation worsened. He had increased cough. So, CT chest was obtained on the , which did show a right middle lobe pneumonia. He was put on antibiotics initially with vancomycin and Zosyn, later transitioned to oral doxycycline. With this he improved rapidly. He was saturating well on room air at the time of discharge. The patient's baseline creatinine appears to be approximately 2.5, but he really never got below 3 on this hospitalization. He did get up as high as 4.2, but was down to 3.6 at discharge. Because of his continued fluctuations in kidney function, his Entresto was held. He also had issues with fluctuating blood pressure and occasional mild hypotension which required holding some of his home CHF medications, notably hydralazine and isosorbide. The patient was anemic for the entire hospitalization, primarily anemia of chronic disease related to his kidney dysfunction and infections, but does have slight worsening. Required transfusion of 1 unit of blood. Hemoglobin was approximately stable at the time of discharge at 8.6. The patient's diabetes was roughly stable during the hospitalization. DISCHARGE VITAL SIGNS: Temperature 98.1 degrees, pulse 65, respirations 20, blood pressure 119/52, O2 saturation 100% on room air. DISCHARGE DIET: Cardiac, diabetic. DISCHARGE MEDICATIONS: Aspirin 81 mg p.o. daily, colchicine 0.6 mg tablets 1/2 tablet p.o. daily, Coreg 6.25 mg p.o. b.i.d., doxycycline 100 mg p.o. b.i.d., folic acid 1 mg p.o. daily, gabapentin 100 mg p.o. b.i.d., Icar-C one tablet daily at least 1 hour separate from doxycycline, Lasix 60 mg p.o. daily, atorvastatin 80 mg p.o. at bedtime, MiraLAX 17 g p.o. b.i.d. hold for 2 or greater bowel movements in the last 24 hours, insulin 70/30 four units subcutaneously b.i.d. with meals, Percocet 5 q. 4 hours p.r.n., spironolactone 25 mg p.o. daily. FOLLOWUP AND PLAN: Patient discharging to rehab to work on his ability to ambulate. The patient to follow up with PCP and Cardiology and Nephrology and Surgery. If the patient's blood pressure remains stable, recommend restarting patient's low-dose hydralazine and isosorbide. Recheck kidney function in 2 to 3 days. TIME SPENT: Greater than 30 minutes spent arranging discharge and counseling patient.
[2019-06-05 12:02] VITALS: BP 129/60
--- NOTE | 2019-06-05 16:06 | NEPHROLOGY PROGRESS NOTE ---
DATE: 06/05/2019 SUBJECTIVE: No new complaints. He anticipates discharge today. No shortness of breath, nausea, vomiting. He remains very weak. OBJECTIVE: Vital Signs: Blood pressure 129/60, heart rate 66, respirations 20, afebrile. Intake 600 mL. Output 1.4 L PHYSICAL EXAMINATION: No acute distress.Skin: Warm and dry. Neck: Neck veins are not distended. Heart: Regular with a gallop. Lungs: Equal no crackles. Abdomen: Soft. Extremities: No edema. IMPRESSION: 1. Acute kidney injury overlying chronic kidney disease. Again, baseline creatinine 2.5. We will simply observe as an outpatient to see if his numbers approximates his baseline. His volume status is certainly much better over the last several days. No significant hyperkalemia or metabolic acidosis. 2. Okay for discharge. cc: Baron Lemon MD
== END 2019-06-05 12:34 | DRG 239 ==
LOC: 3N 14:06 → ED 14:06 → OBSVTOIN 20:21 → SUATTDRO 20:21 → ICU 05-22 11:21 → 4N 05-28 16:56
PROVIDERS: ATTEND Internal Medicine

== ENCOUNTER 2019-06-06 03:34 | Inpatient (IN) ==
--- NOTE | 2019-06-06 04:09 | PROVIDER DOCUMENTATION ---
HPI-Abdominal Pain/GI Problem - General Chief Complaint: Vomiting Blood Stated Complaint: weakness/coughing up blood Time Seen by Provider: 06/06/19 04:07 Source: patient Allergies/Adverse Reactions: Patient Allergies Allergy/AdvReac Type Severity Reaction Status Date / Time No Known Allergies Allergy Verified 06/06/19 04:53 Home Medications: Home Medication List Medication Instructions Recorded Confirmed Last Taken Type ATORVAstatin [Lipitor] 80 mg PO HS #120 tab 01/23/19 06/06/19 05/10/19 Rx Carvedilol [Coreg] 6.25 mg PO BID 120 Days #90 tab 01/23/19 06/06/19 05/10/19 Rx Colchicine [Colcrys] 0.3 mg PO DAILY #60 tab 01/23/19 06/06/19 05/10/19 Rx Folic Acid 1 mg PO DAILY #120 tab 01/23/19 06/06/19 05/10/19 Rx Gabapentin 100 mg PO BID #60 cap 01/23/19 06/06/19 05/10/19 Rx Iron Carbonyl/Ascorbic Acid 1 ea PO DAILY #60 tab 01/23/19 06/06/19 05/10/19 Rx [Icar-C] Spironolactone 25 mg PO DAILY #60 tab 04/24/19 06/06/19 05/10/19 Rx Aspirin 81 mg PO DAILY chewtab 06/05/19 06/06/19 Unknown Rx Doxycycline 100 mg PO BID #12 tab 06/05/19 06/06/19 Unknown Rx Furosemide [Lasix] 60 mg PO DAILY #45 tab 06/05/19 06/06/19 Unknown Rx Insulin Novolog 70/30 [Novolog Mix 4 unit SUBQ BID AC #1 insuln.pen 06/05/19 06/06/19 Unknown Rx 70/30] Oxycodone/APAP 5 mg/325 mg 1 ea PO Q4H PRN PRN #20 tab 06/05/19 06/06/19 Unknown Rx [Percocet-5] Polyethylene Glycol 3350 [Miralax] 17 gm PO BID powder, packet 06/05/19 06/06/19 Unknown Rx - History of Present Illness-ABD Nature of Presenting Problems: Patient is a 63 year old black male , detention resident, with history of CHF and diabetes with reported coughing up blood tonight. SHortly after arrival, patient observed putting fingernail up left nostril with subsequent nosebleed. Review of Systems - Adult - REVIEW OF SYSTEMS - ADULT Constitutional: denies: chills, fever Eyes: reports: no symptoms reported Ears, Nose, Mouth & Throat: reports: see HPI Cardiovascular: denies: chest pain Respiratory: reports: cough. denies: shortness of breath Gastrointestinal: reports: no symptoms reported Genitourinary: reports: no symptoms reported Musculoskeletal: reports: no symptoms reported Integumentary: reports: no symptoms reported Neurological: reports: no symptoms reported Psychiatric: reports: no symptoms reported Endocrine: reports: no symptoms reported Hematologic/Lymphatic: reports: no symptoms reported Allergic/Immunologic: reports: no symptoms reported All Other Systems: Reviewed and Negative Past History - Adult - PAST MEDICAL HISTORY-ADULT Review of Records: reports: Old Records Reviewed, Nursing Assessment Review, Medications Reviewed, Social history reviewed & non-contributory. Major Childhood Illnesses: reports: denies history Cardiovascular: reports: CAD, CHF, HTN, hyperlipidemia Respiratory: reports: COPD Gastrointestinal: reports: denies history Obstetrical/Gynecological: reports: denies history Genitourinary: reports: denies history Musculoskeletal: reports: denies history Neurological: reports: CVA Endocrine/Immune: reports: Diabetes Other Conditions: reports: denies history - PRIOR SURGERIES/PROCEDURES Surgical/Procedure History: reports: appendectomy, CABG, cholecystectomy, cardiac stent - IMMUNIZATION STATUS Childhood Immunizations: See Nurse Assessment Flu Vaccine: See Nurse Assessment - FAMILY HISTORY Family History: reviewed, not pertinent Physical Exam-General - CONSTITUTIONAL General Appearance: alert, no apparent distress - EYES Eyes: other (clear) - HEAD, EARS, NOSE, MOUTH & THROAT HENMT: other (bleeding from left anterior nasal septum) - NECK Neck: supple - RESPIRATORY Respiratory: lungs clear, normal breath sounds - CARDIOVASCULAR Cardiovascular: regular rate, rhythm - GASTROINTESTINAL (ABDOMEN) Abdominal Exam: soft - MUSCULOSKELETAL Back Exam: normal inspection Extremity: other (wound dressing over left foot) - SKIN Integumentary: normal color, normal turgor, warm/dry - NEUROLOGIC Neurologic: grossly normal - PSYCHIATRIC Psych/Mental Status: anxious Progress - PLAN OF CARE/RESULTS Progress/Plan/Lab Results: Vital Signs - 8 hr 06/06/19 03:55 Temperature 98.1 F Pulse Rate 68 Respiratory Rate 20 Blood Pressure 140/77 O2 Sat by Pulse Oximetry 100 Orders Category Date Time Status CBC WITH ELECTRONIC DIFF [HEME] Stat Lab 06/06/19 04:08 Ordered CMP [COMPREHENSIVE METABOLIC PANEL] [CHEM] Stat Lab 06/06/19 04:08 Uncollected TYPE & SCREEN [BBK] Stat Lab 06/06/19 04:07 Uncollected URINE DRUG SCREEN Stat Lab 06/06/19 04:07 Uncollected Result Diagrams: 06/06/19 06:51 06/06/19 06:51 - REASSESSMENT Reassessment #1 Time Reassessed: 08:25 Status: unchanged (chart reviewed (shift change assessment): pt just discharged yest after month-long hosp admit here for PVD/gangrene of toes w/ surgery, acute on chronic JOURDAN and CHF, and PNA. pt' creat and Hb are in range w/ his recent baseline; however he has new marked elevation of LFxT, normal bili and higher alk phos than recent. he had an unremarkable abd sono earlier this year. PT/INR ordered by Dr. Pichardo still pending. K+ now elevated to 5.9, was 5.2 @ discharge. will initiate Rx for latter; pt will need (re-)admit for hyperkalemia and investigation of transaminitis.) - CONSULTS/PCP/HOSPITALIST Notification #1 *Consult/PCP/Hospitalist*: Elke Shore Time Discussed: 09:48 Reason/Comments: admit planned: Dr. Shore requests CT abd & pelvis (ordered) - CHANGE OF SHIFT REPORT (ED Provider) 1 Report Given and Care Transferred to:: Dr. Melton Time of Transfer: 07:00 Items Pending: Labs Procedures - ENT PROCEDURES Epistaxis Management: Left Clots cleared from Nasal Passages:: By Patient Blowing Nose Nasal Drops Instilled: Afrin Inspection: Otoscope Hemostatic Nasal Balloon Insertion: Left, Anterior Departure - Departure Date of Disposition Decision: 06/06/19 Time of Disposition Decision: 11:34 DIAGNOSIS: Epistaxis due to trauma, Renal insufficiency, Acute hyperkalemia, Transaminitis Disposition: ADMITTED INPATIENT 09 Certified Medical Emergency: Emergent Condition: Stable Referrals and Follow-Ups: Sanchez Mcdonald MD [Primary Care Provider] - - Critical Care Note This patient required my direct & personal management of CC.: No Attestation - Physician/ EUGENIO Attestation The physician spent face to face time with patient:: Yes Advanced Practice Provider documentation review:: Supervising physician onsite and consulted in the evaluation and care of this patient. The physician did have a face to face encounter with the patient.
[2019-06-06] MEDS ORDERED: AFRIN NASAL SPRAY NAS ONE ×2 (04:53→18:36)
[2019-06-06 07:05] LABS: BASO# 0.02 X1000 (0.0-0.2); BASO% 0.1 % (0.0-0.8); EOS# 0.06 X1000 (0.0-0.7); EOS% 0.4 % (0.0-10.0); HEMATOCRIT 28.8 % (42.0-52.0); HEMOGLOBIN 8.7 g/dL (14.0-18.0); IMM GRAN# 0.06 X1000 (0.0-0.04); IMM GRAN% 0.4 % (0.0-0.5); LYMPH# 1.08 X1000 (1.2-3.4); LYMPH% 7.6 % (20.5-51.1); MCH 27.4 PG (27-31); MCHC 30.2 g/dL (33-37); MCV 90.9 FL (81-99); MONO# 0.74 X1000 (0.11-0.59); MONO% 5.2 % (1.7-9.3); MPV 10.4 FL (7.4-10.4); NEUT# 12.26 X1000 (1.4-6.5); NEUT% 86.3 % (42.2-75.2); PLT 161 X1000 (130-400); RBC 3.17 XMIL (4.7-6.1); RDW 17.2 % (11.5-14.5); WBC 14.22 X1000 (4.8-10.8)
[2019-06-06 07:12] LABS: UR AMPHETAMINES QUAL NONE DETECTED (NONE DETECT); UR BARBITUATES QUAL NONE DETECTED (NONE DETECT); UR BENZODIAZEPIN QUAL NONE DETECTED (NONE DETECT); UR CANNABINOIDS QUAL NONE DETECTED (NONE DETECT); UR COCAINE QUAL NONE DETECTED (NONE DETECT); UR METHADONE QUAL NONE DETECTED (NONE DETECT); UR OPIATES QUAL NONE DETECTED (NONE DETECT); UR OXYCODONE QUAL PRESUMPTIVE POSITIVE (NONE DETECT); UR PCP QUAL NONE DETECTED (NONE DETECT)
[2019-06-06 07:24] LABS: ALB/GLOB RATIO 0.5; ALBUMIN 2.2 g/dL (3.5-5.0); CALCIUM 8.9 mg/dL (8.8-10.2); CREATININE 3.6 mg/dL (0.7-1.2); POTASSIUM 5.9 mmol/L (3.5-5.1); TOTAL BILIRUBIN 0.95 mg/dL (0.20-1.00)
--- NOTE | 2019-06-06 07:59 | Diag Imaging Result Doc PS360 ---
EXAM: CHEST-PORTABLE INDICATION: sob TECHNIQUE: One view COMPARISON: 06/04/2019 FINDINGS: The right basilar infiltrate has continued to improve slightly. Mild pulmonary venous congestion is stable. No new consolidation is identified. Cardiac silhouette is stable. IMPRESSION: Interval slight improvement. Electronically signed by Matthew Loyd 06/06/2019 7:57 AM
[2019-06-06] MEDS ORDERED: HUMULIN R IV ONE (08:29)
[2019-06-06] MEDS ORDERED: D50W SYRINGE IV ONE (08:29)
[2019-06-06] MEDS ORDERED: SODIUM BICARBONATE 8.4% IV PUSH ONE (08:30)
[2019-06-06 08:49] LABS: INR 1.31; PROTIME 16.5 Seconds (11.0-16.0)
--- NOTE | 2019-06-06 11:09 | Diag Imaging Result Doc PS360 ---
EXAM: CT ABDOMEN/PELVIS W/O CONTRAST INDICATION: abd pain, emesis, marked transaminitis TECHNIQUE: This exam was performed using automated exposure control, adjustment of mA or kV according to patient size, and/or use of iterative reconstruction technique. COMPARISON: 02/10/2011 FINDINGS: There is a moderate-sized right pleural effusion and right basilar atelectasis. There is consolidation in the right middle lobe suggesting pneumonia. It is also possible that it represents dense fibrosis but it was not present on the previous study. There has been a prior cholecystectomy. There is no evidence of significant biliary dilatation. The liver is grossly unremarkable given the limitations of an unenhanced study. The spleen and adrenal glands are unremarkable. There are several punctate pancreatic calcifications mainly involving the tail the pancreas. This could represent chronic pancreatitis. There is no evidence of acute pancreatitis. There are innumerable small nonobstructing intrarenal stones versus vascular calcifications at the renal allison bilaterally. There is a 3 cm right renal cyst. No ureteral stones can be identified and there is no hydronephrosis. There is a Diallo catheter in the urinary bladder lumen. The urinary bladder is grossly unremarkable, otherwise. There is a large amount stool in the colon and especially in the rectum indicating constipation and a rectal fecal impaction. There are a few scattered colonic diverticula but there is no evidence of diverticulitis. There is no focal bowel wall thickening or bowel obstruction identified. There has reportedly been a prior appendectomy. The remainder of the GI tract is grossly unremarkable. No significant free abdominal fluid or free gas is identified. There is extensive aortoiliac atherosclerotic calcification. There are surgical skin paula at the left groin. There is a fluid collection underlying the skin paula with a droplet of internal gas. This probably represents a postsurgical seroma. An infected seroma or abscess would be difficult to completely exclude in the right clinical scenario. There is body wall anasarca and soft tissue edema around both legs, more prominent on the left. IMPRESSION: 1.Constipation with a rectal fecal impaction as described. 2.Moderate-sized right pleural effusion with basilar atelectasis and a dense opacity in the right middle lobe anteriorly at the lung base suggesting pneumonia. However, fibrosis or even rounded atelectasis is possible. 3.Postsurgical changes at the left groin with a fluid collection underlying the skin paula that likely represents a postsurgical seroma. An infected seroma or abscess cannot completely be excluded in the right clinical scenario. 4.Body wall anasarca. 5.Other incidental/nonacute findings detailed above. Electronically signed by Matthew Loyd 06/06/2019 11:07 AM
--- NOTE | 2019-06-06 11:33 | ED EKG INTERP ---
This chart was entered by Lis Velez Scribe, acting as scribe for Siddhartha Melton MD. EKG Interpretation - EKG Time of EKG reading by physician:: 08:33 EKG Read and Signed by:: Siddhartha Melton EKG Interpretation (*Must complete 3 of following elements*): Abnormal Rate: 73 Rhythm: Sinus with short NC [place]: normal QRS: other (inferior infarct) NC Interval: shortened ST Wave: non-specific ST changes (consider lateral ischemia) Attestation - Physician/ EUGENIO Attestation Patient care was provided by Advanced Practice Provider:: No The physician spent face to face time with patient:: Yes Advanced Practice Provider documentation review:: Supervising physician onsite and consulted in the evaluation and care of this patient. The physician did have a face to face encounter with the patient. This chart was documented by the indicated scribe, (Lis Velez Scribe) and accurately reflects the services I performed and decisions made by me, Siddhartha Melton MD, as attested by the provider's signature.
[2019-06-06] MEDS ORDERED: VELTASSA PO ONE (12:52)
[2019-06-06] MEDS ORDERED: ZOFRAN IV PRN (12:52)
--- NOTE | 2019-06-06 13:08 | HISTORY AND PHYSICAL ---
PRIMARY CARE PROVIDER: Dr. Mcdonald. CHIEF COMPLAINT: Lower abdominal pain, lower back pain and nasal bleeding of the left naris primarily. HISTORY OF PRESENT ILLNESS: Mr. Lyndon Stewart is a 63-year-old male who has a significant history of severe peripheral vascular disease where he just most recently was admitted here for left femoral-popliteal bypass performed by Dr. Blandon, along with amputations of the 1st and 2nd toes on the same foot. Also had acute on chronic congestive heart failure while he was here, acute kidney injury on CKD stage 4, was treated for pneumonia, iron-deficiency anemia. He had osteomyelitis of the foot. He was just discharged. He was admitted on 05/11 and discharged on 06/05 to rehab and during the night he was brought in because he started picking at his left naris and started having excessive bleeding from that, some epistaxis and was throwing up with this. He also had complaints of lower abdominal pain and lower back pain. Imaging reveals that he has stool impaction with constipation although he states his last bowel movement was this morning. It is also noted that with the kidney injury he has got an elevated potassium and he has got newly diagnosed elevation in his LFTs. The abdominal pelvic CT does show the rectal fecal impaction. It continues to show right middle lobe and lung base pneumonia but it could also be a fibrosis. CT also suggests that the postsurgical surgical changes in the left groin shows some fluid collection that could possibly be postsurgical seroma versus abscess and General Surgery is reconsulted on the case. PAST MEDICAL HISTORY: 1. Severe ischemic cardiomyopathy with systolic congestive heart failure, ejection fraction 20 to 25 percent. 2. Severe coronary artery disease. 3. Hypertension. 4. Hyperlipidemia. 5. Diabetes mellitus type 2. 6. Medical noncompliance. 7. History of cocaine abuse. 8. Recurrent right pleural effusion that has required thoracentesis. 9. Gout. 10. Folic acid deficiency. 11. Chronic constipation. 12. COPD. 13. CKD stage 4. 14. Severe peripheral vascular disease. 15. Recent treatment for pneumonia. 16. Chronic anemia with iron deficiency anemia. SURGICAL HISTORY: 1. Left femoral popliteal bypass on 05/22/[address] Blandon. 2. Left foot 1st and 2nd toe amputation on 05/22/[address] Bhanu Blandon. 3. Multiple thoracentesis. 4. Coronary artery stenting on multiple occasions. 5. Right foot surgery. SOCIAL HISTORY: Quit smoking in 2018. Prior to that he smoked a pack a day for multiple, multiple years. Denies alcohol or any illicit drug use at this time. FAMILY HISTORY: Positive for CAD. ALLERGIES: No known drug allergies HOME MEDICATIONS: 1. Aspirin enteric coated 81 mg p.o. daily. 2. Colchicine 0.3 mg p.o. daily. 3. Coreg 6.25 mg p.o. twice daily. 4. Doxycycline 100 mg p.o. twice daily. 5. Folic acid 1 mg p.o. daily. 6. Neurontin 100 mg p.o. twice daily. 7. Icar C 1 tab p.o. daily. 8. Lasix 60 mg p.o. daily. 9. Lipitor 80 mg p.o. nightly. 10. MiraLAX 17 g p.o. twice daily. 11. Insulin 70/30, 4 units subcutaneous twice daily. 12. Oxycodone or Percocet 5 1 tablet p.o. every 4 hours p.r.n. 13. Spironolactone 25 mg p.o. daily. REVIEW OF SYSTEMS: Fourteen point review of systems are complete and all were negative except for those mentioned in above HPI. PHYSICAL EXAMINATION: VITAL SIGNS: Temperature 98.1 degrees, heart rate 74, respiratory rate 13, blood pressure 131/68, O2 saturation 100% on room air. GENERAL: Mr. Lyndon Stewart is a 63-year-old male. He is in no acute distress. He answers some questions appropriately. HEENT: Atraumatic, normocephalic. Pupils equal, round, reactive to light. Extraocular movements intact. Mucous membranes are dry. Left naris with a nasal rocket in place and inflated secondary to epistaxis. NECK: Trachea midline. CARDIOVASCULAR: S1, S2. Regular rate and rhythm. No rubs, gallops, murmurs. No lower extremity edema. +2 dorsalis and radial pulses. Negative JVD or carotid bruits. PULMONARY: Clear to auscultation. Bilateral breath sounds. No accessory muscle use or work of breathing noted. GI: Soft, tender in the bilateral lower quadrants. Positive bowel sounds that are hypoactive x4. EXTREMITIES: Moves all extremities equally. Decreased range of motion. NEUROLOGIC: Oriented to name. Answered some questions appropriately. SKIN: Warm, dry, intact. Left knee incision without any signs or symptoms of infection. Dry and intact with paula intact. LABORATORY DATA: White blood cells 14,000, hemoglobin 8, hematocrit 28, platelet count 161,000. INR is 1.31. Sodium 140, potassium 5.9, BUN 22, creatinine 3.6, glucose 160, calcium 8.9, bilirubin 0.98, AST 327, ALT 139, albumin 2.2. Urine drug screen is positive for oxycodone. He had occult blood of the stool that was positive. IMAGING: Chest x-ray: Right basilar infiltrate which is actually improved. There is mild pulmonary venous congestion that is stable, nothing new. Abdominal pelvic CT: Constipation with rectal fecal impaction. Pleural effusion with moderate sized on the right, there is right middle lobe base of lobe that is possible pneumonia versus fibrosis or atelectasis. There are postsurgical surgical changes of the left groin with a fluid collection underlying the skin paula that represents most likely postsurgical seroma but could also be infected seroma or abscess. There is full body wall anasarca. EKG sinus rhythm with initial OK rate of 73. ASSESSMENT/PLAN: 1. Possible gastrointestinal bleeding. The stool was positive for blood. Currently not on a proton pump inhibitor. Hemoglobin hematocrit are 8 and 28 which is pretty stable from what he had yesterday. It is also felt to be more of an epistaxis type thing and we will repeat a H and H later today and if it is low we will start a proton pump inhibitor. 2. Epistaxis of the left naris. He currently has a nasal rocket in to tamponade the bleeding. Currently hemostasis has been achieved. 3. Rectal stool impaction. He has been started on MiraLAX twice a day and he will get a tap water enema. 4. Recent left femoral popliteal bypass performed by Dr. Blandon with questionable abscess or seroma in the left groin on CT. Currently he is only on doxycycline that he was discharged on yesterday with. 5. Possible right lower lobe middle lobe pneumonia versus fibrosis versus atelectasis. Currently on doxycycline, oxygen as needed. 6. Acute kidney injury on CKD stage 4. He is on a renal diet. Just doing to hold nephrotoxic medications for now. 7. Transaminitis, reason unknown. Hepatitis panel ordered. We will trend these labs to determine if there is further investigation needed. 8. Recent acute on chronic systolic congestive heart failure. This will be the reason he is not going to get a whole bunch of extra fluids. He is going to be resumed on his Coreg, 60 of p.o. Lasix daily. 9. Hyperkalemia. Veltassa 8.4 g will be given and we will repeat a potassium later as well. 10. Gout. Colchicine is continued. 11. Folic acid deficiency. Folic acid is continued. 12. DVT prophylaxis. Currently being held secondary to the bleeding. Dictated by CLAY Resendiz for Gabriel Shore MD cc: CLAY Resendiz patient with what sounds like a nose bleed related to picking his nose at the SNF but found to have hyperkalemia and elevated LFTs here. suspect hyperkalemia is related to restarting his home spironolactone, so we will likely leave that off this time. uncertain about his lfts. passive congestion related to his CHF seems likely but has never been noted before. no biliary/liver abnormalities on CT. no tenderness. will monitor LFTs and see what happens. seroma noted at site of previous fem-pop bypass. site looks pretty good to me but will let surgery look at it to make sure it's ok. MTDD
[2019-06-06 15:14] LABS: HEMATOCRIT 26.7 % (42.0-52.0); HEMOGLOBIN 8.2 g/dL (14.0-18.0)
[2019-06-06] MEDS ORDERED: INSULIN PEN NEEDLES ONE (17:32)
[2019-06-06] MEDS: NOVOLOG MIX 70/30 SUBQ SCH (17:43)
[2019-06-06] MEDS: PERCOCET-5 PO PRN (17:44)
[2019-06-06 18:46] LABS: URINE SOURCE CLEAN CATCH
[2019-06-06 19:06] LABS: BILIRUBIN URINE NEGATIVE (NEGATIVE); BLOOD URINE MODERATE (NEGATIVE); COLOR YELLOW; GLUCOSE URINE NEGATIVE (NEGATIVE); KETONE URINE NEGATIVE (NEGATIVE); LEUKOCYTES URINE NEGATIVE (NEGATIVE); NITRITE URINE NEGATIVE (NEGATIVE); PROTEIN URINE 100 mg/dL (NEGATIVE); SP GRAVITY URINE 1.014; TURBIDITY URINE CLEAR (CLEAR); UROBILINOGEN URINE NORMAL (NORMAL)
[2019-06-06 19:39] LABS: UR EPITHELIAL CELLS <10 /HPF (<10); URINE BACTERIA NEGATIVE /HPF; URINE WBC <10 /HPF (<10)
[2019-06-06 19:42] LABS: URINE CRYSTALS NONE SEEN; URINE YEAST NONE SEEN
[2019-06-06 19:43] LABS: URINE CASTS NONE SEEN; URINE SMALL ROUND CELLS NONE SEEN
[2019-06-06] MEDS: NEURONTIN PO SCH (20:11)
[2019-06-06] MEDS: COREG PO SCH (20:11)
[2019-06-06] MEDS: DOXYCYCLINE PO SCH (20:11)
[2019-06-06] MEDS: MIRALAX PO SCH (20:11)
--- NOTE | 2019-06-06 20:34 | CONSULTATION ---
DATE OF CONSULTATION: 06/06/2019 We were asked to see Mr. Lyndon Stewart by our hospitalist because of a recent [id number] femoral-popliteal per Dr. Blandon and seroma in the left groin. Mr. Lyndon Stewart is a 63-year-old black male who was admitted through our emergency department with what appears to be a right-sided pneumonia. We were asked to evaluate him because of a left groin seroma status post left [id number] femoropopliteal per Dr. Blandon on 05/22/2019. He underwent a left femoral popliteal to above knee popliteal bypass with a PTFE 8 mm graft. He also underwent a transmetatarsal amputation 1st and 2nd toes left foot. On exam, his wounds involving his left groin and left medial thigh were intact. There was no evidence of infection. He still had skin clips in place. He did have a palpable seroma in the left groin. He has a partial amputation of his left foot which appeared to be clean without evidence of infection. There appeared to be flow in the left graft. There was some edema involving the left lower extremity. His left foot was warm and seemed to be healing somewhat. IMPRESSION: Seroma left groin status post [id number] femoral-popliteal graft without evidence of infection. PLAN: He is being treated for his pneumonia. I will notify Dr. Blandon of his admission and the skin clips will need to come out soon. cc: Colleen Parish MD
[2019-06-06] MEDS ORDERED: LIPITOR PO SCH (21:00)
[2019-06-07] MEDS: NOVOLOG MIX 70/30 SUBQ SCH ×2 (06:25→16:07)
[2019-06-07 06:56] LABS: BASO# 0.02 X1000 (0.0-0.2); BASO% 0.1 % (0.0-0.8); EOS# 0.08 X1000 (0.0-0.7); EOS% 0.6 % (0.0-10.0); HEMATOCRIT 23.5 % (42.0-52.0); HEMOGLOBIN 7.2 g/dL (14.0-18.0); IMM GRAN# 0.04 X1000 (0.0-0.04); IMM GRAN% 0.3 % (0.0-0.5); LYMPH# 1.25 X1000 (1.2-3.4); MCHC 30.6 g/dL (33-37); MCV 91.4 FL (81-99); MONO# 0.75 X1000 (0.11-0.59); MONO% 5.4 % (1.7-9.3); MPV 10.7 FL (7.4-10.4); NEUT# 11.74 X1000 (1.4-6.5); NEUT% 84.6 % (42.2-75.2); PLT 128 X1000 (130-400); RBC 2.57 XMIL (4.7-6.1); RDW 17.1 % (11.5-14.5); WBC 13.88 X1000 (4.8-10.8)
[2019-06-07 07:03] LABS: ALB/GLOB RATIO 0.5; ALBUMIN 2.1 g/dL (3.5-5.0); CALCIUM 8.5 mg/dL (8.8-10.2); CREATININE 3.5 mg/dL (0.7-1.2); POTASSIUM 4.4 mmol/L (3.5-5.1); TOTAL BILIRUBIN 0.82 mg/dL (0.20-1.00); TOTAL PROTEIN 6.1 g/dL (6.3-8.3)
[2019-06-07] MEDS: LASIX PO SCH (09:01)
[2019-06-07] MEDS: DOXYCYCLINE PO SCH ×2 (09:01→20:20)
[2019-06-07] MEDS: NEURONTIN PO SCH ×2 (09:01→20:21)
[2019-06-07] MEDS: FOLIC ACID PO SCH (09:01)
[2019-06-07] MEDS: COREG PO SCH ×2 (09:02→20:21)
[2019-06-07] MEDS: MIRALAX PO SCH ×2 (09:02→20:21)
[2019-06-07] MEDS ORDERED: NS 500 ML IV SCH (10:00)
--- NOTE | 2019-06-07 11:58 | Diag Imaging Result Doc PS360 ---
EXAM: US GB < RUQ (LIMITED) INDICATION: transaminitis. prior cholecystectomy. COMPARISON: None. FINDINGS: A right pleural effusion is noted incidentally. There has been a prior cholecystectomy. The common bile duct is normal in diameter. The liver is grossly unremarkable. Portal venous flow is hepatopetal. The visualized pancreas is unremarkable. The aorta and IVC are grossly unremarkable. There are several punctate nonobstructing intrarenal stones on the right. There is no hydronephrosis. The renal cortical echotexture is mildly increased, which is a nonspecific indicator of medical renal disease. There is a 4.7 cm simple appearing right renal cyst. IMPRESSION: 1.Increased right renal cortical echotexture, which is a nonspecific indicator of medical renal disease. 2.Nephrolithiasis. 3.Right pleural effusion. Electronically signed by Matthew Loyd 06/07/2019 11:56 AM
--- NOTE | 2019-06-07 16:05 | PROGRESS NOTE ---
DATE: 06/07/2019 INTERVAL HISTORY: Patient with another nosebleed last night after he pulled out his nasal packing. Afrin and pressure were applied, and it did stop spontaneously. The patient again counseled not to pick his nose. The patient with large bowel movement early this morning. His only complaint is his backside being slightly uncomfortable after large bowel movement. REVIEW OF SYSTEMS: A 12 point review of systems negative except as per interval history. LABORATORY DATA: WBC 13.8, hemoglobin 7.2, hematocrit 23.5, platelets 128,000. Sodium 146, potassium 4.4, BUN 124, creatinine 3.5, glucose 148 and 156, bilirubin 0.8, AST 366, ALT 141, alkaline phosphatase 223. IMAGING: CT abdomen and pelvis with rectal fecal impaction, moderate right pleural effusion, stable pneumonia, postsurgical change in the left groin with fluid collection, favored to be postsurgical seroma. Abdominal ultrasound with no biliary ductal or liver abnormality. VITALS: Temperature maximum 98.5 degrees, pulse 73, respirations 16, blood pressure 138/60, O2 saturation 100% on room air. PHYSICAL EXAMINATION: General: No acute distress. Vitals: As above. HEENT: Normocephalic, atraumatic. Minimal dried blood in left naris. Neck: No cervical adenopathy. Cardiovascular: Regular rate and rhythm. Pulmonary: Clear to auscultation bilaterally, aside from minimal bibasilar crackles and very slightly decreased breath sounds at the right lower lung. No accessory muscle use or increased work of breathing. Abdomen: Soft, nontender, nondistended. Bowel sounds present. Extremities: Peripheral pulses decreased but present. Stable left toe amputations. Surgical wounds look good. Neurologic: Cranial nerves grossly intact. No focal deficits identified. Psychiatric: The patient is still with odd affect which appears to be baseline. Requires repeated questioning, but does eventually get all orientation questions correct. Skin: Left thigh incision without erythema, drainage, or other clear sign of infection. Does have some edema of the leg. ASSESSMENT AND PLAN: 1. Hyperkalemia, resolved with treatment overnight. We will likely not continue spironolactone on discharge at this time, as that was likely related. Monitor. 2. Transaminitis. Suspect passive liver congestion related to CHF. The patient has not had this previously, so we did evaluate the liver with CT and ultrasound that show no clear pathology. Bilirubin remains within normal limits. We will monitor LFTs, but will likely need for further evaluation at this time. 3. Epistaxis, acute blood loss anemia on top of anemia of chronic disease. Patient with several bouts of epistaxis after picking his nose and then removing his nasal packing. Appears to have stopped now, but blood counts are down with hemoglobin 7.2. We will go ahead and transfuse 1 unit and monitor. Patient again counseled to leave his nose alone. 4. Chronic systolic congestive heart failure, last known ejection fraction 20%. Relatively stable at this time. Continue diuretics and monitor. We will likely not try to restart spironolactone, given hyperkalemia here. If creatinine remains stable, then may try to restart his Entresto. 5. Rectal stool impaction. Was started on MiraLAX and had plans for enema when the patient had large bowel movement x2. We will obtain KUB to reassess. 6. Recent left femoral-popliteal bypass with suspected seroma. The overlying site really looks pretty good. He does not have any fever or other sign of skin infection currently. We have asked Surgery to look at to make sure there is no issue, but low suspicion for site infection at this time. 7. Right middle lobe pneumonia. Diagnosed on patient's previous admission. On most recent chest x-ray, does appear to be improving on doxycycline which we will continue. 8. Chronic kidney disease, stage 4. Creatinine not all the way to baseline, but stable from previous admission. Continue monitoring. 9. Gout. No sign of flare at this time. Monitor. 10. Folic acid deficiency. Continue repletion. 11. Peripheral vascular disease. We will likely restart aspirin in the morning if he has no further nosebleeds.
[2019-06-07 16:56] LABS: HEMATOCRIT 27.8 % (42.0-52.0); HEMOGLOBIN 8.6 g/dL (14.0-18.0)
[2019-06-07] MEDS: PERCOCET-5 PO PRN (20:21)
[2019-06-08 05:45] LABS: BASO# 0.01 X1000 (0.0-0.2); BASO% 0.1 % (0.0-0.8); EOS# 0.08 X1000 (0.0-0.7); EOS% 0.7 % (0.0-10.0); HEMATOCRIT 28.9 % (42.0-52.0); HEMOGLOBIN 8.9 g/dL (14.0-18.0); IMM GRAN# 0.04 X1000 (0.0-0.04); IMM GRAN% 0.3 % (0.0-0.5); LYMPH# 1.33 X1000 (1.2-3.4); LYMPH% 11.5 % (20.5-51.1); MCH 28.3 PG (27-31); MCHC 30.8 g/dL (33-37); MCV 91.7 FL (81-99); MONO# 0.75 X1000 (0.11-0.59); MONO% 6.5 % (1.7-9.3); MPV 11.3 FL (7.4-10.4); NEUT# 9.36 X1000 (1.4-6.5); NEUT% 80.9 % (42.2-75.2); PLT 116 X1000 (130-400); RBC 3.15 XMIL (4.7-6.1); RDW 16.9 % (11.5-14.5); WBC 11.57 X1000 (4.8-10.8)
[2019-06-08 06:15] LABS: ALB/GLOB RATIO 0.6; ALBUMIN 2.3 g/dL (3.5-5.0); DIRECT BILIRUBIN 0.5 mg/dL (0.00-0.20); TOTAL BILIRUBIN 0.82 mg/dL (0.20-1.00); TOTAL PROTEIN 5.9 g/dL (6.3-8.3)
[2019-06-08 06:29] LABS: CALCIUM 9.5 mg/dL (8.8-10.2); CREATININE 2.9 mg/dL (0.7-1.2); POTASSIUM 4.5 mmol/L (3.5-5.1)
[2019-06-08] MEDS: NOVOLOG MIX 70/30 SUBQ SCH (06:47)
--- NOTE | 2019-06-08 07:53 | EKG Report ---
Test Performed on : 06/06/2019 08:30:46 AM Test Reason : HYPERKALEMIA Blood Pressure : / mmHG Vent. Rate : 073 BPM Atrial Rate : 073 BPM P-R Int : 098 ms QRS Dur : 104 ms QT Int : 398 ms P-R-T Axes : 006 -16 256 degrees QTc Int : 438 ms Sinus rhythm. with short ME Inferior infarct (cited on or before 06-JUN-2019) T wave abnormality, consider lateral ischemia Abnormal ECG When compared with ECG of 24-MAY-2019 06:27, Questionable change in initial forces of Inferior leads Unconfirmed Result
[2019-06-08] MEDS: COREG PO SCH (09:04)
[2019-06-08] MEDS: FOLIC ACID PO SCH (09:04)
[2019-06-08] MEDS: NEURONTIN PO SCH (09:04)
[2019-06-08] MEDS: DOXYCYCLINE PO SCH (09:04)
[2019-06-08] MEDS: LASIX PO SCH (09:04)
[2019-06-08] MEDS: MIRALAX PO SCH (09:05)
[2019-06-08 09:23] LABS: HEPATITIS PROFILE ACUTE SEE COMMENTS
--- NOTE | 2019-06-08 09:35 | Diag Imaging Result Doc PS360 ---
EXAM: KUB ABDOMEN HISTORY: fecal impaction TECHNIQUE: Single view COMPARISON: 05/31/2019 FINDINGS: The bowel gas pattern is nonobstructive. There is mild remaining stool burden. There are surgical clips left inguinal region and right upper quadrant. IMPRESSION: Interval resolution of constipation/impaction. Electronically signed by Joya Galicia 06/08/2019 9:33 AM
--- NOTE | 2019-06-08 11:17 | DISCHARGE SUMMARY ---
ADMISSION DATE: 06/06/2019 DISCHARGE DATE: 06/08/2019 ADMITTING DIAGNOSES: 1. Possible gastrointestinal bleed. 2. Epistaxis of the left nares. 3. Rectal stool impaction. 4. Recent left femoropopliteal bypass performed by Dr. Blandon with questionable abscess or seroma. 5. Possible right lower lobe and middle lobe pneumonia versus fibrosis versus atelectasis. 6. Transaminitis. 7. Acute on chronic systolic congestive heart failure. 8. Hyperkalemia. 9. Gout. 10. Folic acid deficiency. DISCHARGE DIAGNOSES: 1. Transaminitis. 2. Chronic systolic congestive heart failure. 3. Anemia of chronic disease. 4. Right middle lobe pneumonia. 5. Gout. 6. Folic acid deficiency. 7. Peripheral vascular disease. 8. Epistaxis with acute blood loss, resolved. PROCEDURES AND FINDINGS: CT of the abdomen and pelvis done on 06/06/2019 showed constipation with a rectal fecal impaction. It showed moderate-sized right pleural effusion with basilar atelectasis, and dense opacity in the right middle lobe anteriorly at the lung base suggesting pneumonia. However, fibrosis or even rounded atelectasis is possible. It showed postsurgical changes of the right lung, with a fluid collection underlying the skin paula that likely represents a postsurgical seroma. An infected seroma or abscess could not completely be excluded in the right clinical scenario. Body wall anasarca. Abdominal ultrasound showed increased right renal cortical and renal disease, nephrolithiasis, and right pleural effusion. Chest x-ray showed bibasilar infiltrate, with improvement in pulmonary venous congestion that is stable. Abdominal x- ray done on 06/08/2019 showed interval resolution of constipation and impaction. CONSULTS: Dr. Aj Parish. HOSPITAL COURSE: Mr. Lyndon Stewart is a 63-year-old male who was admitted on 06/06/2019. He had recently been in the hospital for a left femoropopliteal bypass surgery by Dr. Blandon, and amputation to his first and second toes on the same foot. He also has chronic congestive heart failure and acute kidney injury with chronic kidney disease stage 4, and was treated for pneumonia and iron-deficiency anemia at that time also. He was discharged to rehab on 06/05/2019. On 06/06/2019, he was sent back to the hospital because he was picking his nose at the rehab, and his nose started bleeding excessively, and he started throwing up. He also started having abdominal pain and back pain. A CT was done in the ER and showed a rectal fecal impaction. He also was noted to have severely elevated LFTs and a high potassium level. He was admitted for possible gastrointestinal bleed, rectal stone impaction, transaminitis, and hyperkalemia. He was given Veltassa. His hemoglobin and hematocrit were trended. He was actually given a unit of blood. His blood count did drop to 7.2 and 23.5. After a unit of blood, his blood count has now come up to 8.9 and 28.9. His bleeding has stopped. Abdominal ultrasound was performed. He was noted to have kidney disease and a few nonobstructing stones. He is noted to have transaminitis. Bilirubin is not elevated. Creatinine has improved. Potassium level has improved. The patient was given medication for the fecal impaction. He has had bowel movements, and has since passed the impaction. He was started on medication for his pneumonia. He was diagnosed with pneumonia the last time he was in the hospital. He will go back to [facility]. He has been consulted to refrain from picking his nose as this will cause more bleeding. Dr. Parish was consulted while the patient was in the hospital. He did note that the area to the left groin [id number] femoropopliteal graft was a seroma without evidence of infection. The patient is being discharged back to [facility] today. DISCHARGE LABORATORY DATA: White blood cell count 11.57, red blood cell count 3.15, hemoglobin 8.9, hematocrit 28.9, platelet count 116,000. PT 16.5, INR 1.31. Sodium 147, potassium 4.5, chloride 110, carbon dioxide 23, anion gap 14, BUN 114, creatinine 2.9, estimated GFR is 27, glucose 168, calcium 9.5. Total bilirubin is 0.82, direct bilirubin is 0.50, AST is 440, ALT is 187, alkaline phosphatase is 278, total protein is 5.9, albumin is 2.3. DISCHARGE MEDICATIONS: Aspirin 81 mg p.o. daily, Coreg 6.25 mg p.o. b.i.d., doxycycline 100 mg p.o. b.i.d., folic acid 1 mg p.o. daily, gabapentin 100 mg p.o. b.i.d., ascorbic acid 1 tablet p.o. daily, Lasix 60 mg p.o. daily, Lipitor 40 mg p.o. at bedtime, MiraLAX 17 grams p.o. b.i.d., NovoLog insulin 70/30 four units subcutaneously b.i.d. before meals, Percocet 5 mg/325 mg 1 tablet p.o. every 4 hours p.r.n. pain. DISCHARGE DIET: Resume healthy heart diet as tolerated. DISCHARGE ACTIVITY: Resume activity per rehab facility. DISCHARGE DISPOSITION: The patient is being discharged to [facility] today. FOLLOWUP: He is to follow up with Dr. Mcdonald, his primary care physician, for any questions or concerns. DISCHARGE INSTRUCTIONS: He is to refrain from picking his nose, and refrain for any smoking or alcohol. Dictated by CLAY Salter for Gabriel Shore MD cc: MD Elke Willoughby MD no further epistaxis. respiratory status stable. impaction resolved. stable to return to rehab. holding spironolactone this time given hyperkalemia and holding entresto until kidney function stabilizes. MTDD
[2019-06-08 11:54] VITALS: BP 135/57
== END 2019-06-08 13:56 | DRG 640 ==
LOC: ED 03:34 → 1N 03:34 → OBSVTOIN 12:10
PROVIDERS: ADMIT Internal Medicine; ATTEND Internal Medicine

== ENCOUNTER 2019-06-11 15:35 | Inpatient (IN) ==
--- NOTE | 2019-06-11 16:30 | PROVIDER DOCUMENTATION ---
HPI-Respiratory General - General Stated Complaint: SOB Time Seen by Provider: 06/11/19 15:59 Source: patient Allergies/Adverse Reactions: Patient Allergies Allergy/AdvReac Type Severity Reaction Status Date / Time No Known Allergies Allergy Verified 06/06/19 04:53 Home Medications: Home Medication List Medication Instructions Recorded Confirmed Last Taken Type Carvedilol [Coreg] 6.25 mg PO BID 120 Days #90 tab 01/23/19 06/11/19 05/10/19 Rx Folic Acid 1 mg PO DAILY #120 tab 01/23/19 06/11/19 05/10/19 Rx Gabapentin 100 mg PO BID #60 cap 01/23/19 06/11/19 05/10/19 Rx Iron Carbonyl/Ascorbic Acid 1 ea PO DAILY #60 tab 01/23/19 06/11/19 05/10/19 Rx [Icar-C] Aspirin 81 mg PO DAILY chewtab 06/05/19 06/11/19 Unknown Rx Doxycycline 100 mg PO BID #12 tab 06/05/19 06/11/19 Unknown Rx Furosemide [Lasix] 60 mg PO DAILY #45 tab 06/05/19 06/11/19 Unknown Rx Insulin Novolog 70/30 [Novolog Mix 4 unit SUBQ BID AC #1 insuln.pen 06/05/19 06/11/19 Unknown Rx 70/30] Polyethylene Glycol 3350 [Miralax] 17 gm PO BID powder, packet 06/05/19 06/11/19 Unknown Rx ATORVAstatin [Lipitor] 40 mg PO HS #120 tab 06/08/19 06/11/19 05/10/19 Rx Oxycodone/APAP 5 mg/325 mg 1 ea PO Q4H PRN PRN #20 tab 06/08/19 06/11/19 Unknown Rx [Percocet-5] Arginine/Glutamine/Calcium Bmb 1 ea PO BID 06/11/19 06/11/19 Unknown History [Felix Packet] Magnesium Hydroxide [Milk of 30 ml PO DIRECTED 06/11/19 06/11/19 Unknown History Magnesia] Multivitamin [Multivitamins] 1 ea PO DAILY 06/11/19 06/11/19 Unknown History - History of Present Illness-Resp Nature of Presenting Problem: 63 YO M poor historian states he was sent to the ED because his o2 sat read at 83%. The home health nurse came to his home and called EMS. He is disoriented and believes today is Jun 19. He states he can barely walk after his bypass graft in his right leg weeks ago. Limited ROS, but denies cough, fever. Pt currently denies pain. Quality of Pain: reports: none Severity in ED: reports: mild Onset/Duration: reports: unsure Timing: reports: still present Context: denies: recent foreign travel Cough Quality/Degree: reports: no cough Associated Symptoms: denies: chest pain/soreness, cough, headache Similar Symptoms Previously?: No Recently seen or treated by another doctor?: No Review of Systems - Adult - REVIEW OF SYSTEMS - ADULT ROS:: limited per condition Constitutional: denies: fever Eyes: reports: no symptoms reported Cardiovascular: denies: chest pain, edema Respiratory: denies: cough, shortness of breath, wheezing Past History - Adult - PAST MEDICAL HISTORY-ADULT Review of Records: reports: Old Records Reviewed, Social history reviewed & non- contributory. Major Childhood Illnesses: reports: denies history Cardiovascular: reports: CAD, CHF, HTN, hyperlipidemia Respiratory: reports: COPD Gastrointestinal: reports: denies history Obstetrical/Gynecological: reports: denies history Genitourinary: reports: denies history Musculoskeletal: reports: denies history Neurological: reports: CVA Endocrine/Immune: reports: Diabetes Other Conditions: reports: denies history - PRIOR SURGERIES/PROCEDURES Surgical/Procedure History: reports: appendectomy, CABG, cholecystectomy, cardiac stent - IMMUNIZATION STATUS Childhood Immunizations: See Nurse Assessment Flu Vaccine: See Nurse Assessment - FAMILY HISTORY Family History: reviewed, not pertinent Physical Exam-General - PHYSICAL EXAM-ADULT Initial Vital Signs Reviewed: Yes - CONSTITUTIONAL General Appearance: alert, no apparent distress - EYES Eyes: PERRL/EOMI, pink conjunctivae - HEAD, EARS, NOSE, MOUTH & THROAT HENMT: moist mucous membranes, normal ENT inspection - NECK Neck: supple - RESPIRATORY Respiratory: chest non-tender, normal breath sounds, no respiratory distress, no accessory muscle use - CARDIOVASCULAR Cardiovascular: regular rate, rhythm - GASTROINTESTINAL (ABDOMEN) Abdominal Exam: non tender, soft - SKIN Integumentary: warm/dry, other (darkened lower extremities) - NEUROLOGIC Neurologic: grossly normal - PSYCHIATRIC Psych/Mental Status: other (disoriented to place and time) Progress - PLAN OF CARE/RESULTS Progress/Plan/Lab Results: Vital Signs - 8 hr 06/11/19 16:06 06/11/19 16:26 06/11/19 19:33 Temperature 98.6 F Pulse Rate 75 74 69 Respiratory Rate 2 L 18 18 Blood Pressure 168/74 168/74 134/73 O2 Sat by Pulse Oximetry 98 100 06/11/19 17:03 Influenza Screen - Final Nasopharyngeal Laboratory Results - last 24 hr 06/11/19 06/11/19 06/11/19 17:05 18:41 18:41 WBC 12.97 H RBC 3.20 L Hgb 9.1 L Hct 29.9 L MCV 93.4 MCH 28.4 MCHC 30.4 L RDW Std Deviation 16.6 H Plt Count 123 L MPV 11.3 H Immature Gran % (Auto) 0.3 Neut % (Auto) 75.8 H Lymph % (Auto) 12.3 L Villalba % (Auto) 10.3 H Eos % (Auto) 1.1 Baso % (Auto) 0.2 Immature Gran # (Auto) 0.04 Neut # (Auto) 9.83 H Lymph # (Auto) 1.60 Villalba # (Auto) 1.34 H Eos # (Auto) 0.14 Baso # (Auto) 0.02 Specimen Type ARTERIAL Sample Site R BRACHIAL pH 7.42 pCO2 41 pO2 162 H HCO3 26.4 H Base Excess 1.9 Oxyhemoglobin 97.0 ABG O2 Sat (Calculated) 18.0 ABG O2 Saturation 99.6 ABG Carboxyhemoglobin 1.80 ABG Methemoglobin 0.8 Randall Test NO A-a O2 Difference 43.0 Total Hemoglobin 13.0 Lactate 1.40 Liter Flow 4.0 Blood Gas Modality CANNULA FiO2 % 36.0 Sodium Potassium Chloride Carbon Dioxide Anion Gap BUN Creatinine Estimated GFR/1.73 m2 BUN/Creatinine Ratio Glucose Calculated Osmolality Calcium Total Bilirubin AST ALT Alkaline Phosphatase Troponin T 0.752 H* Total Protein Albumin Globulin Albumin/Globulin Ratio Urine Source Urine Color Urine Turbidity Urine pH Ur Specific Browning Urine Protein Ur Glucose (Stick) Ur Ketones (Stick) Urine Blood Urine Nitrite Urine Bilirubin Urobilinogen Dipstick Urine Leukocytes Urine WBC (Auto) Urine RBC (Auto) U Epithel Cells (Auto) Urine Bacteria (Auto) 06/11/19 06/11/19 06/11/19 18:41 19:20 22:24 WBC RBC Hgb Hct MCV MCH MCHC RDW Std Deviation Plt Count MPV Immature Gran % (Auto) Neut % (Auto) Lymph % (Auto) Villalba % (Auto) Eos % (Auto) Baso % (Auto) Immature Gran # (Auto) Neut # (Auto) Lymph # (Auto) Villalba # (Auto) Eos # (Auto) Baso # (Auto) Specimen Type Sample Site pH pCO2 pO2 HCO3 Base Excess Oxyhemoglobin ABG O2 Sat (Calculated) ABG O2 Saturation ABG Carboxyhemoglobin ABG Methemoglobin Randall Test A-a O2 Difference Total Hemoglobin Lactate Liter Flow Blood Gas Modality FiO2 % Sodium 148 H Potassium 4.6 Chloride 109 H Carbon Dioxide 28 Anion Gap 11 BUN 88 H Creatinine 2.0 H Estimated GFR/1.73 m2 41 BUN/Creatinine Ratio 44 Glucose 179 H Calculated Osmolality 326 Calcium 8.7 L Total Bilirubin 0.74 AST 392 H ALT 239 H Alkaline Phosphatase 279 H Troponin T 0.732 H* Total Protein 6.1 L Albumin 2.6 L Globulin 3.5 Albumin/Globulin Ratio 0.7 Urine Source CATH Urine Color YELLOW Urine Turbidity CLEAR Urine pH 6.0 Ur Specific Browning 1.014 Urine Protein 200 A Ur Glucose (Stick) NEGATIVE Ur Ketones (Stick) NEGATIVE Urine Blood MODERATE A Urine Nitrite NEGATIVE Urine Bilirubin NEGATIVE Urobilinogen Dipstick NORMAL Urine Leukocytes NEGATIVE Urine WBC (Auto) <10 Urine RBC (Auto) <10 U Epithel Cells (Auto) <10 Urine Bacteria (Auto) NEGATIVE Orders Category Date Time Status Diallo Cath Insertion ORDERED Care 06/11/19 18:00 Active Saline Loc NOW Care 06/11/19 16:26 Active CHEST-2 VIEWS [RAD] Stat Exams 06/11/19 16:[address] HEAD W/O CONTRAST [CT] Stat Exams 06/11/19 21:07 Completed A1C HGB W EST AVG GLUCOSE [CHEM] Routine Lab 06/12/19 06:00 Ordered ABG [RESP] Routine Lab 06/11/19 17:05 Completed CBC WITH ELECTRONIC DIFF [HEME] Stat Lab 06/11/19 18:41 Completed COMPREHENSIVE METABOLIC PANEL [CHEM] Stat Lab 06/11/19 18:41 Completed FERRITIN Routine Lab 06/12/19 06:00 Ordered FOLATE Routine Lab 06/12/19 06:00 Ordered INFLUENZA SCREEN A/B Stat Lab 06/11/19 17:03 Completed LIPASE [CHEM] Stat Lab 06/11/19 23:07 Ordered RETIC COUNT [HEME] Stat Lab 06/11/19 23:08 Ordered TOTAL IRON [CHEM] Routine Lab 06/12/19 06:00 Ordered TROPONIN T Stat Lab 06/11/19 18:41 Completed TROPONIN T Stat Lab 06/11/19 22:24 Completed TSH Routine Lab 06/12/19 06:00 Ordered URINALYSIS W/POSS RFLX CULT [URINALYSIS] Stat Lab 06/11/19 19:20 Completed VITAMIN B12 Routine Lab 06/12/19 06:00 Ordered EKG [EKG] Stat Ther 06/11/19 16:26 Draft Transfer/Admit Order [TRANSFER] Routine Transfer 06/11/19 23:02 Ordered Result Diagrams: 06/11/19 18:41 06/11/19 18:41 - REASSESSMENT Reassessment #1 Time Reassessed: 23:13 Status: unchanged (repeat trop remains at .73 family is bedside, however they do not live with him. They say his mentation has been going in and out. Pt denies pain currently. He is 100% on RA.) - EKG 1 Time of EKG reading by physician:: 20:11 EKG Read and Signed by:: Ora Moody EKG Interpretation (*Must complete 3 of following elements*): Abnormal Rate: 69 Rhythm: NSR with short ID interval [place]: normal ID Interval: shortened ST Wave: non-specific ST changes Prior EKG Comparison: unchanged from prior (deeper t wave inversion in v3, otherwise unchanged EKG from 06/06/19) - XRAY 1 XRAY Study: Chest Impression: See EMR Report (NDICATION: hypoxia TECHNIQUE: 2 views COMPARISON: 06/06/2019 FINDINGS: There is a persistent infiltrate at the right lung base but it has continued to improve since the previous study. There is stable mild blunting of the right costophrenic angle suggesting chronic pleural thickening versus a stable trace effusion. No new consolidation is identified. There is stable cardiomegaly. Pulmonary venous congestion has improved to gross resolution. IMPRESSION: Interval improvement of right basilar consolidation as described. Electronically signed by Matthew Loyd 06/11/2019 5:07 PM) - CT/MRI 1 CT Study: Head Impression: See EMR Report (INDICATION: AMS TECHNIQUE: This exam was performed using automated exposure control, adjustment of mA or kV according to patient size, and/or use of iterative reconstruction technique. COMPARISON: 11/15/2018 FINDINGS: There is suggestion of moderate white matter microangiopathy, stable. There are a couple of chronic lacunar infarcts involving the thalamus on the right and the left caudate head that are stable. There is no definite acute infarct given the limited sensitivity of CT versus MRI. There is no discrete intracranial mass, mass effect, or intracranial hemorrhage. The surrounding soft tissues and bony structures are essentially unremarkable. IMPRESSION: Stable chronic findings as described. No definite acute intracranial pathology. Electronically signed by Matthew Loyd 06/11/2019 9:49 PM) - CONSULTS/PCP/HOSPITALIST Notification #1 *Consult/PCP/Hospitalist*: Dr. Naylor Time Discussed: 22:15 Consult Disposition: Will see in ED Departure - Departure Date of Disposition Decision: 06/11/19 Time of Disposition Decision: 22:56 DIAGNOSIS: Hypoxia, Elevated troponin Disposition: ADMITTED INPATIENT 09 Certified Medical Emergency: Emergent Condition: Stable Referrals and Follow-Ups: Sanchez Mcdonald MD [Primary Care Provider] - - Critical Care Note This patient required my direct & personal management of CC.: No Attestation - Physician/ EUGENIO Attestation The physician spent face to face time with patient:: Yes Advanced Practice Provider documentation review:: Supervising physician onsite and consulted in the evaluation and care of this patient. The physician did have a face to face encounter with the patient.
--- NOTE | 2019-06-11 17:09 | Diag Imaging Result Doc PS360 ---
EXAM: CHEST-2 VIEWS INDICATION: hypoxia TECHNIQUE: 2 views COMPARISON: 06/06/2019 FINDINGS: There is a persistent infiltrate at the right lung base but it has continued to improve since the previous study. There is stable mild blunting of the right costophrenic angle suggesting chronic pleural thickening versus a stable trace effusion. No new consolidation is identified. There is stable cardiomegaly. Pulmonary venous congestion has improved to gross resolution. IMPRESSION: Interval improvement of right basilar consolidation as described. Electronically signed by Matthew Loyd 06/11/2019 5:07 PM
[2019-06-11 17:22] LABS: ALLEN TEST NO; BE 1.9 mmoll (-3.0-3.0); BLOOD TYPE ARTERIAL; HCO3-(ACT) 26.4 mmoll (20.0-26.0); METHB 0.8 % (0.0-1.5); PCO2(98.6) 41 mmHg (35-45); PO2(98.6) 162 mmHg (60-100); SAMPLE BLOOD; SAO2 99.6 % (95.0-100.0); pH(98.6) 7.42 (7.35-7.45)
[2019-06-11 17:23] LABS: MODALITY CANNULA
[2019-06-11 19:03] LABS: BASO# 0.02 X1000 (0.0-0.2); BASO% 0.2 % (0.0-0.8); EOS# 0.14 X1000 (0.0-0.7); EOS% 1.1 % (0.0-10.0); HEMATOCRIT 29.9 % (42.0-52.0); HEMOGLOBIN 9.1 g/dL (14.0-18.0); IMM GRAN# 0.04 X1000 (0.0-0.04); IMM GRAN% 0.3 % (0.0-0.5); LYMPH% 12.3 % (20.5-51.1); MCH 28.4 PG (27-31); MCHC 30.4 g/dL (33-37); MCV 93.4 FL (81-99); MONO# 1.34 X1000 (0.11-0.59); MONO% 10.3 % (1.7-9.3); MPV 11.3 FL (7.4-10.4); NEUT# 9.83 X1000 (1.4-6.5); NEUT% 75.8 % (42.2-75.2); PLT 123 X1000 (130-400); RDW 16.6 % (11.5-14.5); WBC 12.97 X1000 (4.8-10.8)
[2019-06-11 19:30] LABS: URINE SOURCE CATH
[2019-06-11 19:34] LABS: BILIRUBIN URINE NEGATIVE (NEGATIVE); BLOOD URINE MODERATE (NEGATIVE); COLOR YELLOW; GLUCOSE URINE NEGATIVE (NEGATIVE); KETONE URINE NEGATIVE (NEGATIVE); LEUKOCYTES URINE NEGATIVE (NEGATIVE); NITRITE URINE NEGATIVE (NEGATIVE); PROTEIN URINE 200 mg/dL (NEGATIVE); SP GRAVITY URINE 1.014; TURBIDITY URINE CLEAR (CLEAR); UROBILINOGEN URINE NORMAL (NORMAL)
[2019-06-11 19:36] LABS: UR EPITHELIAL CELLS <10 /HPF (<10); URINE BACTERIA NEGATIVE /HPF; URINE RBC <10 /HPF (<10); URINE WBC <10 /HPF (<10)
[2019-06-11 19:36] LABS: ALB/GLOB RATIO 0.7; ALBUMIN 2.6 g/dL (3.5-5.0); CALCIUM 8.7 mg/dL (8.8-10.2); POTASSIUM 4.6 mmol/L (3.5-5.1); TOTAL BILIRUBIN 0.74 mg/dL (0.20-1.00); TOTAL PROTEIN 6.1 g/dL (6.3-8.3)
--- NOTE | 2019-06-11 21:52 | Diag Imaging Result Doc PS360 ---
EXAM: CT HEAD W/O CONTRAST INDICATION: AMS TECHNIQUE: This exam was performed using automated exposure control, adjustment of mA or kV according to patient size, and/or use of iterative reconstruction technique. COMPARISON: 11/15/2018 FINDINGS: There is suggestion of moderate white matter microangiopathy, stable. There are a couple of chronic lacunar infarcts involving the thalamus on the right and the left caudate head that are stable. There is no definite acute infarct given the limited sensitivity of CT versus MRI. There is no discrete intracranial mass, mass effect, or intracranial hemorrhage. The surrounding soft tissues and bony structures are essentially unremarkable. IMPRESSION: Stable chronic findings as described. No definite acute intracranial pathology. Electronically signed by Matthew Loyd 06/11/2019 9:49 PM
--- NOTE | 2019-06-11 22:04 | EKG Report ---
Test Performed on : 06/11/2019 7:51:24 PM Test Reason : CP Blood Pressure : / mmHG Vent. Rate : 069 BPM Atrial Rate : 069 BPM P-R Int : 082 ms QRS Dur : 104 ms QT Int : 420 ms P-R-T Axes : 012 -10 211 degrees QTc Int : 450 ms Sinus rhythm. with short MO Inferior infarct (cited on or before 06-JUN-2019) ST & T wave abnormality, consider anterolateral ischemia Abnormal ECG When compared with ECG of 06-JUN-2019 08:30, (Unconfirmed) T wave inversion more evident in Anterior leads Unconfirmed Result
[2019-06-11 23:24] LABS: RETIC% 0.61 % (0.8-2.1)
--- NOTE | 2019-06-12 00:46 | HISTORY AND PHYSICAL ---
REASON FOR ADMISSION: Altered mental status. HISTORY OF PRESENT ILLNESS: Mr. Lyndon Stewart is a 63-year-old man who was recently discharged from our facility 3 days ago for hemorrhagic anemia secondary to epistaxis, rectal stool impaction and pneumonia. The patient is an extremely poor historian and history was obtained from the daughter and his the daughter's mother, who both were at bedside. They informed me that they were contacted by the rehab facility because the patient was very lethargic and confused today. The daughter informs me that his "confusion" has been ongoing for several months, even prior to the patient's most recent femoral-popliteal bypass done a few weeks ago. They said that at one point they were informed that he may be a candidate for dialysis in the near future, but because of his depressed LV function, i.e., EF of 25% and other comorbidities, they were concerned that if they put in a dialysis catheter or an AV graft he may not survive the procedure. Currently the daughter said there is no history of active bleeding anymore. They are not aware of any change in his medications. The patient is very drowsy and lethargic, and was unable to give any meaningful history. He does say he has pain but cannot localize the pain. He denies any shortness of breath. No reported diarrhea, fever or chills per the family. REVIEW OF SYSTEMS: Extremely limited due to the patient's depressed sensorium and cognitive impairment. ALLERGIES: No known allergies. HOME MEDICATIONS: He is on aspirin 81 mg daily; multivitamin tablets once a day; magnesium hydroxide 30 mL p.r.n.; Felix 1 packet b.i.d.; Coreg 6.25 mg b.i.d.; doxycycline 100 mg b.i.d.; gabapentin 100 mg b.i.d.; folic acid 1 mg daily; Icar-C 1 tablet daily; Lasix 60 mg daily; atorvastatin 40 mg at bedtime; MiraLAX 17 g b.i.d.; 70/30 insulin 4 units b.i.d.; oxycodone 5 mg q.4 p.r.n. PAST MEDICAL HISTORY: 1. Chronic systolic heart failure. 2. Chronic kidney disease. 3. Hypertension. 4. Coronary artery disease. 5. Peripheral arterial disease, status post femoral-popliteal bypass. 6. Gout. 7. Folic acid deficiency. 8. Hyperlipidemia. 9. Type 2 diabetes. 10. History of cocaine abuse. 11. Chronic obstructive pulmonary disease. PAST SURGICAL HISTORY: 1. Left femoral-popliteal bypass. 2. Left 1st and 2nd toe amputation. 3. Coronary artery disease stenting. 4. Right foot surgery. FAMILY HISTORY: Type 2 diabetes and coronary artery disease in first-degree relatives. SOCIAL HISTORY: Currently residing at a intermediate. Does not smoke, drink or use illicit drugs at this time. LABORATORY DATA: White count 13,000, hemoglobin and hematocrit 9 and 29, platelet count is 123,000 with 76% neutrophils. Blood gas on 4 L: PH 7.42, pCO2 is 41, pO2 is 162, bicarbonate 26. Sodium is 148, BUN is 88, creatinine 2.0, AST 392, ALT 239, alkaline phosphatase 279. First troponin 0.752, second one 0.732. Urinalysis shows positive for moderate blood. DIAGNOSTIC DATA: Head CT: No acute intracranial bleed or infarct. Chest film showed interval improvement of right basilar consolidation. PHYSICAL EXAMINATION: VITAL SIGNS: Blood pressure is 134/73, heart rate 69, respirations 18, temperature is 98.6, 100% on room air. GENERAL: Chronically ill man, who is very lethargic and drowsy. Arousable to touch. Will follow basic commands, He is oriented to person, but not to place or time. He has a flat affect. HEENT: Head is normocephalic, atraumatic. Eyes: LYNDA, EOMI. He is anicteric and not pale. ENT and oropharynx exam is grossly normal. No signs of cyanosis. NECK: Supple. No JVD. Mild hepatojugular reflux. No bruit or thyromegaly. CHEST: Clear when auscultated, with good air entry in both lung rawls. CARDIOVASCULAR: First and second heart sounds heard. No gallops, murmurs or rubs. Rhythm is regular. ABDOMEN: Full, with notable epigastric tenderness but no peritoneal signs. Bowel sounds are hypoactive. No mass or organomegaly. RECTAL: Exam deferred at this time. SKIN: The patient has noticeable lichenification of skin below the knee on both extremities. There is also extensive xerosis and weathering of the skin in the same area. There are also hyperpigmentation changes of the skin below the knee. Otherwise grossly unremarkable. EXTREMITIES: The dorsum of the right foot is cool to touch. No palpable distal pulses in the lower extremities, and diminished pulses distally in upper extremities. The patient has amputation of the 1st and 2nd left toes. The area itself where the amputation occurred is healing. At the base there is chronic ulceration, a dry ulcerated area. No exudation. The patient is unable to move his left toes, but can move his feet. No clubbing or peripheral cyanosis. No edema. NEUROLOGICAL: No gross focal deficits. Positive asterixis. MUSCULOSKELETAL: Exam is grossly normal. ASSESSMENT AND PLAN: 1. Encephalopathy, which could be multifactorial, probably metabolic from uremia, hypernatremia secondary to dehydration, and I cannot rule out underlying liver issues. We will cautiously hydrate the patient to correct for hypernatremia which has occurred over the last 1 week. We will see if the patient's sensorium responds to this. Also we will stop any potentially neurotoxic medications. An ammonia level has been ordered and needs to be followed. 2. Markedly elevated BUN, which could be as a result of possible chronic gastrointestinal bleed along with over-diuresis. The patient clinically did have epigastric tenderness. We will start him on high-dose proton pump inhibitors. We will suggest esophagogastroduodenoscopy, or at the very least an upper gastrointestinal series to rule out gastric ulceration. 3. Chronic kidney disease stage 3. Monitor BUN and creatinine. We will hold Lasix for the next 48 hours and p.r.n. intravenous crystalloids. 4. Type 2 diabetes. Continue sliding scale. Check A1c. 5. Anemia, multifactorial from [id number] bleeds and chronic kidney disease. Anemia workup ordered. 6. Coronary artery disease with type 2 [id number] myocardial infarction. The patient is already on optimal treatment. Aspirin, statin and beta-blockers for now. We will trend troponins and may consider consulting Cardiology for further input, which may give further modification of medications, i.e., increased beta-surya dose. 7. Chronic systolic heart failure. Currently stable. 8. Gout. No evidence of acute flare-up at this time. 9. Transaminitis. Etiology could be from medications. May consider cutting the dose of statins. Hepatitis panel was ordered on his last admission and was essentially negative. 10. Plavix would have been ideal in this patient and needs to be considered. This was held because of epistaxis. I would personally prefer switching aspirin to Plavix, as this has better outcomes for this kind of patient who has extensive peripheral arterial disease and coronary artery disease. cc: Odilon Naylor MD
[2019-06-12] MEDS ORDERED: ZOFRAN IV PRN (00:51)
[2019-06-12] MEDS ORDERED: HEPARIN SUBQ SCH (00:51)
[2019-06-12] MEDS ORDERED: 1/2 NS 1,000 ML IV SCH (00:51)
[2019-06-12] MEDS: PRILOSEC PO SCH ×3 (01:47→21:11)
[2019-06-12] MEDS ORDERED: CALMOSEPTINE OINTMENT TOP PRN (01:51)
[2019-06-12 02:47] LABS: BASO# 0.02 X1000 (0.0-0.2); BASO% 0.2 % (0.0-0.8); EOS# 0.16 X1000 (0.0-0.7); EOS% 1.2 % (0.0-10.0); HEMATOCRIT 26.8 % (42.0-52.0); HEMOGLOBIN 8.2 g/dL (14.0-18.0); IMM GRAN# 0.03 X1000 (0.0-0.04); IMM GRAN% 0.2 % (0.0-0.5); LYMPH# 1.65 X1000 (1.2-3.4); LYMPH% 12.8 % (20.5-51.1); MCHC 30.6 g/dL (33-37); MCV 94.7 FL (81-99); MONO# 1.28 X1000 (0.11-0.59); MONO% 9.9 % (1.7-9.3); MPV 11.4 FL (7.4-10.4); NEUT# 9.75 X1000 (1.4-6.5); NEUT% 75.7 % (42.2-75.2); PLT 111 X1000 (130-400); RBC 2.83 XMIL (4.7-6.1); RDW 16.7 % (11.5-14.5); WBC 12.89 X1000 (4.8-10.8)
[2019-06-12 02:49] LABS: HEMOGLOBIN A1C 6.1 % (4.8-6.0)
[2019-06-12 03:22] LABS: CALCIUM 8.7 mg/dL (8.8-10.2); MAGNESIUM 1.7 mg/dL (1.5-2.7); POTASSIUM 4.3 mmol/L (3.5-5.1)
[2019-06-12 03:38] LABS: TSH 3.35 uIUmL (0.27-4.20)
[2019-06-12] MEDS: HUMALOG SUBQ SCH ×4 (06:03→21:12)
[2019-06-12] MEDS: ASPIRIN PO SCH (08:22)
[2019-06-12] MEDS: MIRALAX PO SCH ×2 (08:22→21:12)
[2019-06-12] MEDS: COREG PO SCH ×2 (08:22→21:11)
[2019-06-12] MEDS: LOVENOX SUBQ SCH ×2 (08:26→21:11)
--- NOTE | 2019-06-12 08:28 | EKG Report ---
Test Performed on : 06/12/2019 08:22:05 AM Test Reason : Elevated troponin Blood Pressure : / mmHG Vent. Rate : 072 BPM Atrial Rate : 072 BPM P-R Int : 108 ms QRS Dur : 104 ms QT Int : 414 ms P-R-T Axes : 092 -14 130 degrees QTc Int : 453 ms Sinus rhythm. with short CA Minimal voltage criteria for LVH, may be normal variant Inferior infarct (cited on or before 06-JUN-2019) ST & T wave abnormality, consider lateral ischemia Abnormal ECG When compared with ECG of 11-JUN-2019 19:51, (Unconfirmed) No significant change was found Confirmed by Shelley RAYMOND, Keith Oakley ([id number]) on 06/12/2019 10:32:47 AM
[2019-06-12] MEDS: D5W 1,000 ML IV SCH (08:57)
--- NOTE | 2019-06-12 10:19 | CARDIOLOGY CONSULTATION ---
DATE: 06/12/2019 CHIEF COMPLAINT: Unclear why the patient was sent from the correction. Reportedly, he had hypoxia but I do not believe he had ever any documented hypoxia while here. He has some altered mental status as well. HISTORY OF PRESENT ILLNESS: Mr. Stewart is a 63-year-old black male with a history of an ischemic cardiomyopathy as well as severe peripheral arterial disease. He is an extremely poor historian who seems somewhat confused. His mother is at bedside, who does not seem to be a very good historian either. The patient was sent from the correction yesterday for a checkup per him. He is not clear of any specific complaints that he had yesterday. He was not having any chest pain or shortness of breath. He reports a good appetite. He has had pain and weakness complaints in his lower extremities that apparently has been present since his bypass procedure. PAST MEDICAL HISTORY: 1. Significant for coronary artery disease. His last cardiac catheterization was in 2017 that demonstrated an ostial 30% left main lesion. His LAD had a mid 50%, distal 50%. Circumflex had 20% with OM1 60% lesion. His RCA was dominant and had in-stent stenosis in a mid stent of 90% that was treated with a stent. 2. Ischemic cardiomyopathy. His most recent ejection fractions have been in the 20-25% range. 3. Chronic kidney disease. Creatinines have been widely variable anywhere from the 2s to 3s. 4. Hypertension. 5. Hyperlipidemia. 6. Diabetes. 7. Tobacco abuse. SOCIAL HISTORY: The patient currently resides at a correction. No current tobacco use. FAMILY HISTORY: Type 2 diabetes and coronary artery disease. REVIEW OF SYSTEMS: The patient has no other complaints in a 10 system review of systems but the history is somewhat questionable due to his confusion. PHYSICAL EXAMINATION: Vital signs: He is afebrile. Heart rate 73. His blood pressure is 150/83. General: He is in no acute distress. HEENT: Oropharynx is moist. Poor dentition. Eye examination shows pink conjunctivae, white sclerae. Neck: His neck examination shows no obvious thyromegaly or thyroid tenderness. Cardiovascular: He sounds to be in a regular rate and rhythm. I do not hear any obvious murmurs. He has no S3. He has no lower extremity edema. He has warm extremities. Chest: His chest exam is clear bilaterally. He has no increased work of breathing. Abdomen: Soft, nontender, nondistended. He has no obvious organomegaly. Skin: His skin exam is warm and dry throughout without any rashes. Neurological: He seems to be able to move all extremities well. Psychiatric: The patient is a difficult historian, questions have to be repeated on multiple occasions. PERTINENT DATA: His CT showed no definite intracranial acute pathology. He had a chest x-ray that showed interval improvement of a right basilar consolidation. His initial EKG showed sinus rhythm, inferior Q waves. He had T wave inversions noted in V3 through V6, which does not appear significantly different from old EKGs. His next electrocardiogram occurring on the at 8:22 again shows similar findings with T wave inversions noted laterally, inferior Q waves, sinus mechanism. LABORATORY DATA: Demonstrates a white count of 12.9, hematocrit 27, platelet count of 111. Sodium 147, potassium is 4.3, BUN 86, creatinine is 2. These seem improved from his last check on the . His troponins have been elevated, his initial was 0.752, subsequent of 0.741. ASSESSMENT: Mr. Stewart is a 63-year-old gentleman, who presented with apparent confusion, reported hypoxia from the correction but no apparent hypoxia on evaluation here. His oxygen saturations have all been documented in the high 90s to 100. Those were all on room air. PLAN: At this point, we will treat medically. His EKG does not show any clear differences from old. His echocardiogram initially shows a similar ejection fraction to previous with no clear segmental abnormalities that are different from old. His troponins have been relatively flat. He is not having any complaints of ACS type symptomatology. At this point, I will titrate medications by adding in Isordil and hydralazine for better treatment of his ejection fraction as well as adding an antianginal component. We will do this instead of an ARB or an NAM inhibitor or Entresto given his renal insufficiency. I have escalated his statin therapy and ordered a lipid panel in the morning. cc: Ld Ortiz MD
[2019-06-12] MEDS: ISORDIL PO SCH ×2 (12:59→16:26)
[2019-06-12] MEDS: APRESOLINE PO SCH ×2 (12:59→16:26)
[2019-06-12] MEDS ORDERED: ISORDIL PO SCH (13:00)
[2019-06-12] MEDS ORDERED: APRESOLINE PO SCH (13:00)
--- NOTE | 2019-06-12 15:07 | PROGRESS NOTE ---
DATE: 06/12/2019 SUBJECTIVE: The patient seems to be feeling better. He does not look confused. Vital signs seems to be stable. His sodium level is high as well as his troponin, he has been evaluated by Cardiology Department who readjusted his medications and basically we are going to continue with medical treatment. We have placed this patient on anticoagulation, maybe for a few days. Hopefully, this coming Saturday this patient can go back to the rehab center. OBJECTIVE: Vital Signs: Temperature 98.7 degrees, pulse 76, respiratory rate 20, blood pressure 144/71, oxygen saturation 99 on room air. HEENT: Head normocephalic, no trauma. PERRLA. Neck: Supple. No JVD. No masses. Central trachea. Chest: Clear to auscultation. No wheezing. No rales. Abdomen: Soft, nontender, nondistended. No hepatosplenomegaly. 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 At the base, there is a chronic ulceration, but there is no secretion. He is not complaining of pain and recently he has a surgery. He has paula on the level of the left lower extremity and the area has paula and they look fine. Neurological: No focal deficits. LABORATORY: WBC 12.8, hemoglobin 8.2, hematocrit 36.8, platelets 111,000. Sodium 147, potassium 4.3, chloride 110, bicarbonate 23, BUN 88, creatinine 2, glucose 160, calcium 8.7, magnesium 1.7. Troponins 0.7 x 3. ASSESSMENT AND PLAN: 1. Encephalopathy, resolved, probably that was multifactorial, he seems to be better now. We will continue with same management. 2. Chronic kidney disease with elevated BUN, but checking back this BUN level has been elevated before and actually better compared with the last discharge. 3. Type 2 diabetes. Continue with the same management. 4. Anemia, multifactorial, probably due to chronic disease. 5. History of coronary artery disease. Aware. He is not complaining of chest pain or shortness of breath. 6. Elevated troponins. Cardiology Department already evaluated this patient. Echocardiogram and EKG basically about the same compared with previous admissions. For now we will continue treating this patient just with medical treatment. I have placed this patient on anticoagulation. 7. Chronic systolic heart failure as above. 8. Gout. No evidence of flare up at this moment. 9. Transaminitis, which was present at the beginning of this month also, uncertain etiology. Alkaline phosphatase has been elevated since 2018, though bilirubin within normal limits. 10. Physical deconditioning. I have placed this patient on physical therapy. cc: Rigo Franco MD
--- NOTE | 2019-06-12 19:06 | ECHO REPORT ---
ORDER DATE: 06/12/2019 MEASUREMENTS: Septal thickness 1.0, left ventricular internal diameter end diastole 6.0, posterior wall thickness 0.9, left ventricular internal diameter end systole 5.4. SUMMARY: 1. Adequate quality study. 2. Aortic valve is trileaflet and opens normally on 2-dimensional images. The peak gradient across the aortic valve is less than 5 mmHg. Mitral, tricuspid and pulmonic valves are without evidence of structural abnormality with mild mitral regurgitation and trace tricuspid regurgitation. The aortic root is normal in size. 3. Mild left ventricular enlargement with normal wall thickness demonstrated. The estimated left ejection fraction is approximately 20% in the setting of severe global hypokinesis. There appears to be more severe hypokinesis of the entire inferior wall. Left atrium is mildly to moderately enlarged. Right atrium and right ventricle are normal in size with grossly preserved right ventricular systolic function. 4. Very small pericardial effusion demonstrated. 5. Appearance of inferior vena cava suggests normal central venous pressure. cc: MD Rigo Cunningham MD
[2019-06-12] MEDS ORDERED: LIPITOR PO SCH (21:00)
[2019-06-12] MEDS: LIPITOR PO SCH (21:11)
[2019-06-12] MEDS: TYLENOL PO PRN (21:24)
[2019-06-13] MEDS: PERCOCET-5 PO PRN ×3 (03:53→21:03)
[2019-06-13] MEDS: D5W 1,000 ML IV SCH (03:53)
[2019-06-13] MEDS: HUMALOG SUBQ SCH ×4 (06:21→21:26)
[2019-06-13 06:51] LABS: AGAP 11; BUN 73 mg/dL (8-22); CALCIUM 8.8 mg/dL (8.8-10.2); CHLORIDE 106 mmol/L (98-107); CHOLESTEROL 143 mg/dL (0-200); COSMO 308; ESTIMATED GFR 41; GLUCOSE 150 mg/dL (70-104); HDL 23 mg/dL (35-55); LDL 91 mg/dL; SODIUM 142 mmol/L (136-145); TCO2 25 mmol/L (25-35); TRIGLYCERIDES 145 mg/dL (39-160); VLDL 29 mg/dL
[2019-06-13 06:56] LABS: POTASSIUM 4.5 mmol/L (3.5-5.1)
--- NOTE | 2019-06-13 08:15 | PROGRESS NOTE ---
DATE: 06/13/2019 SUBJECTIVE: The patient is resting comfortably in bed. He is answering my questions, but slowly. Vital signs seem to be stable. Sodium level normalized, so I already stopped his Clinimix. We will continue with the same management for now, and hopefully he is going to go back to his rehab center this coming Saturday. OBJECTIVE: Vital Signs: Temperature 98.2 degrees, pulse 66, respiratory rate 18, blood pressure 149/71, oxygen saturation 97% on room air. HEENT: Head normocephalic, no trauma. PERRLA. Neck: Supple. No JVD. No masses. Central trachea. Chest: Clear to auscultation. No wheezing. Some crepitus at the bases. Abdomen: Soft, nontender, nondistended. No hepatosplenomegaly. Extremities: Decreased pulses distally. He has an amputation of the 1st and 2nd left toes at the base. There is a chronic ulceration. There is no secretion, though. He is not complaining of pain, recently he has a surgery with some paula at the level of the left lower extremity, and that looks clean, dry, and intact. Neurological examination: This patient is alert. He is following commands. He is answering some of my questions, but his answers are slow. LABORATORY: Sodium 142, potassium 4.5, chloride 106, bicarbonate 25. BUN 73, creatinine 2, glucose 150. Hemoglobin A1c 6.1, calcium 8.8. ASSESSMENT AND PLAN: 1. Encephalopathy, resolved. Probably that was multifactorial. He seems to be better now. We will continue with same management. 2. Chronic kidney disease with elevated BUN. BUN is trending down and chronically his BUN has been elevated. 3. Type 2 diabetes, well controlled. Hemoglobin A1c 6.1. 4. Anemia, multifactorial, probably due to chronic disease. 5. History of coronary artery disease, aware. He is not complaining of chest pain or shortness of breath at this moment. 6. Elevated troponin. Cardiology Department already evaluated this patient. Echocardiogram and electrocardiogram basically without too much changes compared with before. For now, we will continue treating this patient medically, I have placed this patient on anticoagulation. 7. Chronic systolic heart failure as above. 8. Gout. No evidence of flare up at this moment. 9. Transaminitis, uncertain etiology. We will continue to monitor. 10. Physical deconditioning. Continue physical therapy and I have requested occupational therapy as well. cc: Rigo Franco MD
[2019-06-13] MEDS ORDERED: LASIX PO SCH (09:00)
[2019-06-13] MEDS: APRESOLINE PO SCH ×3 (09:48→17:58)
[2019-06-13] MEDS: MIRALAX PO SCH ×2 (09:48→21:26)
[2019-06-13] MEDS: PRILOSEC PO SCH ×2 (09:49→21:04)
[2019-06-13] MEDS: ISORDIL PO SCH ×3 (09:49→17:58)
[2019-06-13] MEDS: ASPIRIN PO SCH (09:49)
[2019-06-13] MEDS: COREG PO SCH ×2 (09:49→21:04)
[2019-06-13] MEDS: LOVENOX SUBQ SCH (09:50)
[2019-06-13] MEDS ORDERED: LOVENOX SUBQ SCH (14:30)
--- NOTE | 2019-06-13 14:44 | PROGRESS NOTE ---
DATE: 06/13/2019 SUBJECTIVE: Patient denies shortness of breath or chest pain. He has. He reports some anorexia. OBJECTIVE: Blood pressure 146/92, heart rate 67, oxygen saturation 100% on room air. Jugular venous pressure appears to be around 10. Chest is clear to auscultation bilaterally. Cardiac exam reveals a regular rate and rhythm without appreciable murmur or gallop. Extremities demonstrate trace edema. LABORATORY DATA: Includes a sodium 142, potassium 4.5, chloride 106, carbon dioxide 25, BUN 73, creatinine 2.0. Glucose 150. IMAGING: Recent echocardiography demonstrates mild left ventricular enlargement with estimated left ejection fraction 20% in the setting of severe global hypokinesis and very severe hypokinesis of the entire inferior wall. IMPRESSION: 1. Chronic systolic heart failure. The patient's volume status appears to be reasonable at present. 2. Severe cardiomyopathy with left ejection fraction 20%. 3. Atherosclerotic coronary disease. 4. Chronic kidney disease. 5. Hypertension. 6. Hyperlipidemia. 7. Peripheral vascular disease. Patient is status post recent left femoral-popliteal bypass and amputation of left great toe. 8. Diabetes mellitus. RECOMMENDATIONS: 1. Continue current cardiovascular regimen and current Lasix dose unchanged. 2. Discontinue Lovenox 70 mg subcutaneously every 12 hours. Resume at 30 mg subcutaneously daily. 3. Conservative cardiovascular management overall. cc: Eldon Robins MD
--- NOTE | 2019-06-13 15:13 | GENERAL SURGERY PROGRESS NOTE ---
DATE: 06/13/2019 SUBJECTIVE: This patient is three weeks after a left femoral-popliteal bypass using a PTFE graft by Dr. Blandon. This was to assist in healing of his foot wounds. PLAN: His incisions look good and are healing satisfactorily. I will have the nurse remove the paula. cc: Rui Hackett MD
[2019-06-13] MEDS ORDERED: VITAMIN K SUBQ ONE (18:29)
[2019-06-13 19:28] LABS: INR 1.21; PROTIME 15.5 Seconds (11.0-16.0)
[2019-06-13 19:30] LABS: PTT 62.8 Seconds (22.3-41.8)
[2019-06-13] MEDS: LIPITOR PO SCH (21:04)
[2019-06-14] MEDS: PERCOCET-5 PO PRN (01:32)
[2019-06-14] MEDS: HUMALOG SUBQ SCH ×4 (06:09→21:04)
[2019-06-14 06:43] LABS: BASO# 0.01 X1000 (0.0-0.2); BASO% 0.1 % (0.0-0.8); EOS# 0.14 X1000 (0.0-0.7); EOS% 1.7 % (0.0-10.0); HEMATOCRIT 25.1 % (42.0-52.0); HEMOGLOBIN 7.6 g/dL (14.0-18.0); IMM GRAN# 0.03 X1000 (0.0-0.04); IMM GRAN% 0.4 % (0.0-0.5); LYMPH# 1.18 X1000 (1.2-3.4); MCH 28.3 PG (27-31); MCHC 30.3 g/dL (33-37); MCV 93.3 FL (81-99); MONO% 9.5 % (1.7-9.3); MPV 11.6 FL (7.4-10.4); NEUT# 6.24 X1000 (1.4-6.5); NEUT% 74.3 % (42.2-75.2); PLT 145 X1000 (130-400); RBC 2.69 XMIL (4.7-6.1); RDW 16.2 % (11.5-14.5)
[2019-06-14 06:55] LABS: ALB/GLOB RATIO 0.6; ALBUMIN 2.4 g/dL (3.5-5.0); CALCIUM 9.1 mg/dL (8.8-10.2); POTASSIUM 4.3 mmol/L (3.5-5.1); TOTAL BILIRUBIN 0.81 mg/dL (0.20-1.00); TOTAL PROTEIN 6.4 g/dL (6.3-8.3)
--- NOTE | 2019-06-14 08:44 | PROGRESS NOTE ---
DATE: 06/14/2019 SUBJECTIVE: This patient is resting comfortably in bed. He is answering my questions, but slowly. Vital signs are stable. He has been having nosebleed and also bleeding through his previous leg wound. Yesterday, the paula were removed from that area. He has been having this kind of issue before. He has been bleeding through his nose during previous hospitalization, mostly when we put this patient on anticoagulation, which I have stopped already. Initially, will put this patient on Lovenox twice a day, and then just a low dose, but he seems to be still having bleeding issues. As a matter of fact, a big clot has been removed from his nose, and he has that at the bedside. OBJECTIVE: Vital Signs: Temperature 98.1 degrees, pulse 69, respiratory rate 12, blood pressure 147/68, oxygen saturation 100% on room air. HEENT: Head normocephalic. No trauma. PERRLA. Neck: Supple. No JVD. No masses. Central trachea. Chest: Clear to auscultation. No wheezing. Some crepitus at the bases. Abdomen: Soft, nontender, nondistended. No hepatosplenomegaly. Extremities: Decreased pulses distally. He has an amputation of the first and second left toe at the base. There is a chronic ulceration that looks fine. He is not complaining of pain, but generalized discomfort. Recently, he had a surgery done at the level of the left lower extremity. Driggs have been removed, and there is a new dressing, which apparently has been changed during the night due to bleeding. Neurological: This patient is alert. He is following commands. He is answering some of my questions, but his answers are slow, which I believe is his baseline. LABORATORY DATA: WBC 8.4, hemoglobin 7.6, hematocrit 25.1, platelets 145,000. Sodium 141, potassium 4.3, chloride 105, bicarbonate 24, BUN 67, creatinine 2, glucose 107, calcium 9.1. AST 381, ALT 202, alkaline phosphatase 228. ASSESSMENT AND PLAN: 1. Encephalopathy, resolved. Probably this is multifactorial, and I believe he has a baseline of some psychiatric issue. Will continue with the same management for now. 2. Chronic kidney disease with elevated BUN, trending down. Continue with the same management. 3. Type 2 diabetes, well controlled. Hemoglobin A1c 6.1. 4. Anemia, multifactorial. He has been having nosebleed, and also he has been bleeding some through the previous surgical wound on his left leg. It looks like this has slowed down, and I have stopped the anticoagulation completely due to this. Hemoglobin dropped a little bit compared with yesterday. 5. History of coronary artery disease, aware. He does not complain of chest pain or shortness of breath at this moment. 6. Elevated troponins. Cardiology Department already evaluated this patient. Echocardiogram and electrocardiogram are basically without many changes compared with before. For now, will continue to treat this patient medically. 7. Coagulopathy. He received vitamin K and also 1 unit of fresh frozen plasma, and it looks like this is working for him. The bleeding has slowed down. 8. Gout. No evidence of flare-up at this moment. 9. Transaminitis, uncertain etiology. Will continue to monitor. Getting better slowly. 10. Physical deconditioning. Continue physical therapy and occupational therapy during this hospitalization. Hopefully, we are going to be able to discharge this patient tomorrow to a rehab center, if he is doing fine. cc: Rigo Franco MD
[2019-06-14] MEDS: APRESOLINE PO SCH ×3 (08:45→17:06)
[2019-06-14] MEDS: COREG PO SCH ×2 (08:45→21:03)
[2019-06-14] MEDS: MIRALAX PO SCH ×2 (08:45→21:03)
[2019-06-14] MEDS: ISORDIL PO SCH ×3 (08:45→17:06)
[2019-06-14] MEDS: ASPIRIN PO SCH (08:45)
[2019-06-14] MEDS: PRILOSEC PO SCH ×2 (08:45→21:02)
[2019-06-14] MEDS: LASIX PO SCH (08:47)
--- NOTE | 2019-06-14 08:57 | Diag Imaging Result Doc PS360 ---
EXAM: CHEST-PORTABLE - 06/14/2019 HISTORY: dyspnea TECHNIQUE: Portable chest one view COMPARISON: 06/11/2019 chest two views FINDINGS: There are mild prominence of markings at the right base and small right pleural effusions prior. The remainder the lungs appear essentially clear. There is no discrete pneumothorax identified. Heart size appears within normal limits. IMPRESSION: Stable exam compared to prior. Electronically signed by Jony Jc 06/14/2019 8:55 AM
[2019-06-14] MEDS ORDERED: LOVENOX SUBQ SCH (09:00)
--- NOTE | 2019-06-14 10:24 | GENERAL SURGERY PROGRESS NOTE ---
DATE: 06/14/2019 Mr. Stewart's wounds in his groin and his left thigh are satisfactory. The paula were removed. cc: Rui Hackett MD
[2019-06-14] MEDS: TYLENOL PO PRN (21:03)
[2019-06-14] MEDS: LIPITOR PO SCH (21:03)
[2019-06-15] MEDS: HUMALOG SUBQ SCH ×2 (06:22→11:34)
[2019-06-15 06:36] LABS: HEMATOCRIT 21.7 % (42.0-52.0); HEMOGLOBIN 6.6 g/dL (14.0-18.0)
[2019-06-15 06:44] LABS: ALB/GLOB RATIO 0.5; ALBUMIN 2.3 g/dL (3.5-5.0); CALCIUM 9.1 mg/dL (8.8-10.2); POTASSIUM 4.7 mmol/L (3.5-5.1); TOTAL BILIRUBIN 0.84 mg/dL (0.20-1.00); TOTAL PROTEIN 6.6 g/dL (6.3-8.3)
[2019-06-15] MEDS ORDERED: NS 500 ML IV ONE (08:08)
[2019-06-15] MEDS: ISORDIL PO SCH ×2 (09:03→13:07)
[2019-06-15] MEDS: PRILOSEC PO SCH (09:03)
[2019-06-15] MEDS: LASIX PO SCH (09:03)
[2019-06-15] MEDS: ASPIRIN PO SCH (09:03)
[2019-06-15] MEDS: APRESOLINE PO SCH ×2 (09:03→13:07)
[2019-06-15] MEDS: COREG PO SCH (09:03)
[2019-06-15] MEDS: MIRALAX PO SCH (09:03)
--- NOTE | 2019-06-15 10:35 | DISCHARGE SUMMARY ---
ADMISSION DATE: 06/11/2019 DISCHARGE DATE: DISCHARGE DIAGNOSES: 1. Encephalopathy. 2. Chronic kidney disease, stable. 3. Type 2 diabetes. 4. Anemia, multifactorial. 5. History of coronary artery disease. 6. Elevated troponins. 7. Coagulopathy. 8. Gout. 9. Transaminitis, uncertain etiology. 10. Physical deconditioning. 11. Status post left femoral to above the knee popliteal bypass, transmetatarsal amputation of the 1st and 2nd toes, dated 05/22/2019. PROCEDURES PERFORMED: 1. Chest x-ray dated 06/11/2019, impression: Interval improvement of the right basilar consolidation. 2. Head CT scan dated 06/11/2019, impression: Stable chronic findings. No definite acute intracranial pathology. 3. Echocardiogram dated 06/12/2019, impression: Aortic valve has 3 leaflets and opens normally on 2 dimension images, mild mitral regurgitation and trace tricuspid regurgitation, mild left ventricular enlargement with normal wall thickness. Estimated ejection fraction around 20% in the setting of severe global hypokinesis. Very small pericardial effusion demonstrated. 4. Chest x-ray dated 06/14/2019, impression: Stable exam. HOSPITAL COURSE: A 63-year-old man recently discharged from our facility for hemorrhagic anemia secondary to epistaxis, rectal stool impaction and pneumonia. History basically was obtained from his daughter, and also apparently his daughter's mother, and they were both at the bedside. Apparently, they were informed from the rehab facility because he was lethargic and confused. He was admitted on 06/11/2019. It looks like this confusion has been going on for several months as per the daughter, even prior to this patient's most recent femoral- popliteal bypass done a few weeks ago. They were informed at some point that this patient can be a candidate for dialysis in the future. His ejection fraction is low, at this moment is 20. He came in with elevated troponins. Cardiology Department evaluated this patient and they will continue with medical management. We put him on anticoagulation. He started bleeding through his nose and also his leg from the prior surgery. We stopped the anticoagulation. He received FFP and also vitamin K and that improved, and no more bleeding since Saturday night. His hemoglobin is decreased though, is 6.6 today. He really wants to be discharged today to a rehab center, which I will after giving him 1 unit of blood. He agree with that. His LFTs have been elevated and I told him that I will ask Gastroenterology Department to evaluate him but he refused this. The patient has been improving on a daily basis. Medication has been readjusted by Cardiology Department. He is feeling fine today. He will be discharged today after getting a blood transfusion. OBJECTIVE: Vital Signs: Temperature 97.9 degrees, pulse 68, respiratory rate 16, blood pressure 155/68, oxygen saturation 99 on room air. HEENT: Head normocephalic. No trauma. PERRLA. Neck: Supple. No JVD. No masses. Central trachea. Chest: Clear to auscultation. No wheezing. No rales. Some crepitus at the bases. Abdomen: Soft, nondistended. No hepatosplenomegaly. Extremities: Decreased pulses distally. He has an amputation of the 1st and 2nd left toe at the base, and also a chronic ulceration, but that looks fine. He is not complaining of pain but generalized discomfort. Recently he had a surgery done at the level of the left lower extremity. The paula have been removed recently and Surgery evaluated him. There is a new dressing. No signs of bleeding. Neurological: He is alert. He is following commands, answering my questions. His answers are slow but appropriate. I believe this is his baseline. LABORATORY DATA: Hemoglobin 6.6, hematocrit 21.7. Sodium 142, potassium 4.7, chloride 107, bicarbonate 20, BUN 60, creatinine 2, glucose 104, calcium 9.1. AST 410, ALT 204, alkaline phosphatase 257, albumin 2.3. DISCHARGE MEDICATIONS: 1. Felix packet p.o. b.i.d. 2. Aspirin 81 mg p.o. daily. 3. Atorvastatin 40 mg p.o. at bedtime. 4. Coreg 6.25 mg p.o. b.i.d. 5. Folic acid 1 mg p.o. daily. 6. Lasix 60 mg p.o. daily. 7. Gabapentin 100 mg p.o. b.i.d. 8. Hydralazine 10 mg p.o. t.i.d. 9. NovoLog 70/30 4 units subcutaneous b.i.d. 10. Icar C p.o. daily. 11. Isosorbide dinitrate 5 mg p.o. t.i.d. 12. Milk of magnesia 30 mL p.o. as directed. 13. Multivitamin 1 tablet p.o. daily. 14. Omeprazole 40 mg p.o. b.i.d. 15. Percocet 5 one tablet p.o. q.4 hours as needed for pain. 16. MiraLAX 17 g p.o. b.i.d., which can be decrease or stopped if he is having more than 2 bowel movements per day. I will continue with his aspirin, but if he starts having nasal bleed or through the wound, I recommended to stop it for at least 3 to 5 days and then restart that. This patient's LFTs are elevated but he refused Gastroenterology Department evaluation today because he wants to go back to the rehab center today. He feels better. Time discharging this patient 30 minutes. cc: Rigo Franco MD
[2019-06-15 12:41] VITALS: BP 149/63
--- NOTE | 2019-06-15 19:09 | GASTROENTEROLOGY CONSULTATION ---
DATE: 06/15/2019 REQUESTING PHYSICIAN: Rigo Franco MD PRIMARY CARE DOCTOR: Sanchez Mcdonald MD REASON FOR CONSULTATION: Elevated liver enzymes. HISTORY OF PRESENT ILLNESS: Mr. Stewart is a 63-year-old male who was admitted on 06/11/2019 for altered mental status. He was recently discharged from the hospital 3 days ago for hemorrhagic anemia secondary to epistaxis, rectal stool impaction and pneumonia. He was noted to have elevated liver enzymes during the admission, and Gastroenterology was consulted for further management. Patient denies any known history of hepatitis, denies any prior history of liver disease. He denies any family history of liver disease. His mother and father are present at bedside. The patient does have a history of congestive heart failure with an EF of 25% in the left ventricle. He is being followed by Cardiology. He had a recent femoral popliteal bypass done a few weeks ago with Dr. Blandon. He has difficulty walking since the surgery. He is going to be discharged to rehab today. The patient denies any nausea, vomiting, vomiting blood. He has not had a bowel movement during this admission. He has been getting pain medications per the primary care team, which could have made him constipated. He was also put on MiraLAX twice daily. The patient denies any vomiting or passing blood in the stools. Denies having any EGD or colonoscopy in the past. PAST MEDICAL HISTORY: Chronic systolic heart failure, chronic kidney disease, hypertension, coronary artery disease, peripheral arterial disease, status post femoral- popliteal bypass, gout, folic acid deficiency, hyperlipidemia, type 2 diabetes, history of cocaine abuse, COPD, chronic smoker. He quit recently. PAST SURGICAL HISTORY: Left femoral popliteal bypass, left first and second toe amputation, coronary artery disease stenting, right foot surgery. FAMILY HISTORY: Type 2 diabetes and coronary artery disease in first-degree relatives. SOCIAL HISTORY: Currently residing at residential. He denies any history of smoking currently. He used to be a smoker but quit recently. Denies any alcohol or illicit drug abuse at this time. ALLERGIES: No known drug allergies. MEDICATIONS IN THE HOSPITAL: Include Tylenol 650 mg every 6 hours, aspirin 81 mg every day, Lipitor 80 mg once daily at bedtime, Coreg 6.25 mg p.o. b.i.d., Lasix 60 mg once daily, hydralazine 10 mg p.o. t.i.d., Humalog sliding scale, isosorbide dinitrate 5 mg p.o. t.i.d., menthol/zinc oxide ointment topical as needed, Prilosec 40 mg p.o. twice daily, Zofran 4 mg IV every 4 hours as needed, oxycodone/acetaminophen 1 tablet p.o. q.4 hours as needed, MiraLAX 17 g p.o. b.i.d. DIET: He is on a diabetic diet. REVIEW OF SYSTEMS: Denies any fevers, rigors, chills, chest pain, shortness of breath, dyspnea at rest. Denies any vomiting or passing blood in the stools. Does complain of constipation, does complain of some discomfort in the left mid abdomen. He has not moved his bowels since admission. He complains of pain in his legs and feet and has difficulty walking. Denies any neurological complaints. PHYSICAL EXAMINATION: Vital signs: Temperature of 97.4 degrees, pulse of 70, respiratory rate 18, blood pressure 116/74, saturating 92% on room air. Body weight of 163 pounds, BMI 20.9 kg. General: Thinly built, lying in bed, in no acute distress. HEENT: Pale. No icterus. Pupils equal, reactive to light. Neck: Supple. Abdomen: Discomfort in the left upper quadrant. No rebound or guarding. Extremities: He has bilateral lower extremity mild edema. He has a surgical bandage over the left knee from recent femoral-popliteal bypass. Neurologic: He is alert, awake, oriented x3. LABORATORY DATA: Hemoglobin and hematocrit is 6.6 and 21.7, white count of 8.40, platelet count of 145,000, sodium 140, potassium 4.7, chloride 107, bicarb 29, BUN of 16, creatinine of 2, glucose of 104, calcium is 9.1, total bilirubin is 0.84, AST 14, ALT 204, alkaline phosphatase is 257, total protein 6.6, albumin of 2.3. His troponins on 06/12/2019 was 0.74, triglycerides 145, cholesterol 143, HDL 23, lipase of 94, B12 of 918. Urinalysis: Positive protein, moderate blood. Flu screen was negative on admission. IMAGING: Chest x-ray done yesterday showed mild prominence of the markings in the right base and small right pleural effusions. The remainder of the lungs appear clear. There was no discrete pneumothorax. Heart size appears within normal limits. Head CT showing stable chronic findings. Suggestion of moderate white matter microangiopathy stable. Couple of chronic lacunar infarcts involving thalamus on the right and the left caudate head that are stable. There is no definite acute infarct given the limited sensitivity of CT versus MRI. There is no discrete intracranial mass or mass effect. Last ultrasound on 06/07/2019 showed increased right renal cortical echotexture, which is a nonspecific indicator of medical renal disease, nephrolithiasis and right pleural effusion. There has been prior cholecystectomy. The common bile duct is normal in diameter. The liver is grossly unremarkable. Portal venous flow is hepatopetal. The visualized pancreas is unremarkable. There is a 4.7 cm simple-appearing right renal cyst. CT of the abdomen and pelvis on 06/06/2019 showed constipation with rectal fecal impaction. Moderate sized right pleural effusion with basilar atelectasis and dense opacity in the right middle lobe inferiorly of the lung base suggesting pneumonia. Postsurgical changes of the left groin with fluid collection underlying the skin paula that likely represent a postsurgical seroma. Body wall anasarca. There has been prior cholecystectomy. There is no evidence of significant biliary dilation. There are several punctate pancreatic calcifications mainly on the tail of the pancreas that represent chronic pancreatitis. There is no evidence of any acute pancreatitis. Large amount of stool in the colon especially in the rectum indicating constipation or rectal fecal impaction. There are a few scattered colonic diverticula with no evidence of diverticulitis. No focal wall thickening of the bowels noted. IMPRESSION AND PLAN: 1. Elevated liver enzymes, unclear etiology. Likely differentials include cardiac etiology causing hepatic congestion. We need to check for chronic liver disease profile. 2. Chronic kidney disease, stable. 3. Type 2 diabetes. Patient counseled to keep a good control of diabetes. He will need to be managed by the primary team. He is on sliding scale Humalog. 4. Anemia is being managed by the primary team. Denies any active bleeding. He had recent surgery. He may need to be transfused as needed. 5. History of coronary artery disease and had elevated troponins during this admission complicated with chronic congestive heart failure, the left ventricular ejection fraction of 25%. This is being managed by the cardiology team. I spoke to Dr. Robins. 6. Status post left femoral popliteal bypass, amputation of first and second toes on 05/22/[address] Blandon. Surgery team is following. 7. Physical deconditioning. He is getting discharged to a rehab facility. 8. Gastrointestinal prophylaxis with PPIs, omeprazole, which can be once daily for 3 months and then cut down to Pepcid 20 mg twice daily as needed. 9. Constipation. The patient will be on MiraLAX twice daily. He has had no bowel movement since admission. He is on narcotics. We need to reduce narcotics to as low as possible and try to avoid hepatotoxic drugs. 10. Patient will follow up in the clinic in 3 months after discharge. He will be discharged to the rehab facility and from there he will come and see us to check on his chronic liver disease workup. 11. Diverticulosis of the colon. The patient is to avoid excessive corn, nuts, and seeds in diet. 12. Renal cyst on imaging, aware. 13. Status post cholecystectomy, aware. 14. Anasarca and moderate right-sided pleural effusion. He needs to improve his nutrition. He may benefit from Glucerna shakes 3 times daily. 15. He may benefit from iron C and multivitamin for anemia. 16. We will check the chronic liver disease workup. We will see him back in the clinic in a few months as described above. The above plans were discussed with the patient and family, and all questions answered. Please call with any further questions. cc: MD Sanchez Tyson MD Omar J. Sosa-Chirinos, MD Peter Johnson, MD Robert C. Walker, MD MTDD
[2019-06-15] MEDS ORDERED: ICAR-C PO SCH (21:00)
[2019-06-16] MEDS ORDERED: CENTRUM SILVER PO SCH (09:00)
[2019-06-16 10:24] LABS: HEPATITIS PROFILE ACUTE SEE COMMENTS
== END 2019-06-15 13:55 | DRG 71 ==
LOC: SUPCPDRO → ED 15:35 → 2N 23:52 → SUATTDRO 23:52
PROVIDERS: ATTEND Internal Medicine

== ENCOUNTER 2019-07-17 08:29 | Inpatient (IN) ==
[2019-07-17] MEDS ORDERED: KEFZOL 1 GM/D5W 2 GM/100 ML IVPB ONE (09:09)
[2019-07-17] MEDS ORDERED: 1/2 NS 500 ML ONE (09:09)
[2019-07-17] MEDS ORDERED: VERSED ONE (11:09)
[2019-07-17] MEDS ORDERED: FENTANYL ONE (11:09)
[2019-07-17] MEDS ORDERED: DIPRIVAN 1% ONE (11:09)
[2019-07-17] MEDS ORDERED: XYLOCAINE-MPF 2% ONE (13:00)
[2019-07-17] MEDS: DILAUDID ONE ×2 (13:30→13:34)
[2019-07-17] MEDS ORDERED: ZOFRAN IV PRN (13:40)
[2019-07-17] MEDS: NORCO-7.5 PO PRN ×2 (15:44→19:56)
[2019-07-17] MEDS: NOVOLOG MIX 70/30 SUBQ SCH (18:42)
[2019-07-17] MEDS: PERIDEX MT SCH (20:01)
[2019-07-17] MEDS: APRESOLINE PO SCH (20:01)
[2019-07-17] MEDS: COREG PO SCH (20:01)
[2019-07-17] MEDS: LIPITOR PO SCH (20:01)
[2019-07-17] MEDS: ISORDIL PO SCH (20:01)
[2019-07-17] MEDS: NEURONTIN PO SCH (20:01)
[2019-07-17] MEDS: MIRALAX PO SCH (20:02)
[2019-07-17] MEDS: PRILOSEC PO SCH (20:02)
[2019-07-17 20:38] LABS: BASO# 0.02 X1000 (0.0-0.2); BASO% 0.2 % (0.0-0.8); EOS# 0.07 X1000 (0.0-0.7); EOS% 0.8 % (0.0-10.0); HEMATOCRIT 28.1 % (42.0-52.0); HEMOGLOBIN 8.2 g/dL (14.0-18.0); LYMPH# 1.83 X1000 (1.2-3.4); LYMPH% 21.2 % (20.5-51.1); MCH 29.3 PG (27-31); MCHC 29.2 g/dL (33-37); MCV 100.4 FL (81-99); MONO# 1.03 X1000 (0.11-0.59); MONO% 11.9 % (1.7-9.3); MPV 11.3 FL (7.4-10.4); NEUT# 5.67 X1000 (1.4-6.5); NEUT% 65.9 % (42.2-75.2); PLT 151 X1000 (130-400); RDW 17.6 % (11.5-14.5); WBC 8.62 X1000 (4.8-10.8)
[2019-07-17 20:57] LABS: ALB/GLOB RATIO 0.7; ALBUMIN 2.8 g/dL (3.5-5.0); CALCIUM 8.5 mg/dL (8.8-10.2); CREATININE 1.8 mg/dL (0.7-1.2); MAGNESIUM 1.9 mg/dL (1.5-2.7); POTASSIUM 4.8 mmol/L (3.5-5.1); TOTAL BILIRUBIN 0.44 mg/dL (0.20-1.00); TOTAL PROTEIN 6.6 g/dL (6.3-8.3)
[2019-07-18] MEDS: APRESOLINE IV SCH ×2 (01:02→01:31)
[2019-07-18] MEDS: HUMALOG SUBQ SCH ×5 (01:03→23:09)
[2019-07-18] MEDS: NORCO-7.5 PO PRN ×4 (01:30→23:59)
--- NOTE | 2019-07-18 04:24 | OPERATIVE NOTE ---
PROCEDURE DATE: 07/17/2019 PREOPERATIVE DIAGNOSIS: Peripheral vascular disease, necrosis of his left forefoot. POSTOPERATIVE DIAGNOSIS: Peripheral vascular disease, necrosis of his left forefoot. PROCEDURE PERFORMED: Left transmetatarsal amputation. ESTIMATED BLOOD LOSS: 20 mL. SPECIMENS: Left forefoot. ANESTHESIA: General. INDICATIONS: A 63-year-old gentleman who has a left femoral to above knee popliteal bypass for critical limb ischemia. He had 2 amputated toes, 1st and 2nd at the time of his bypass. He has developed necrosis of adjacent toes. Although his TRACI has improved to now 1 from 0.4. FINDINGS: There was necrosis of the 3rd toe with impending necrosis of the 4th and 5th toes. There was adequate perfusion. OPERATIVE NOTE: Risks, benefits and alternatives were discussed with the patient, consented to the procedure. Seen preoperatively, surgical site was confirmed and marked, taken to operating room, placed in supine position. General anesthesia was induced. His foot was prepped with Betadine and draped in usual fashion. After time-out, we planned a fishmouth type incision connecting the previous wound laterally to include the 3rd, 4th, 5th metatarsals. We carried this down through subcutaneous tissue. Periosteal elevator was used and a bone cutter was used to amputate the forefoot. We then sharply excised the medial wound on his left foot and debrided the bone back to healthy bleeding tissue. We then loosely approximated the wound with #1 Prolene suture. Hemostasis was noted. There was adequate perfusion noted at each location. No purulence. A Vashe dressing with Kerlix and Román wrap was applied. He tolerated it well. No complications. cc: Elke Blandon MD
[2019-07-18] MEDS: NOVOLOG MIX 70/30 SUBQ SCH ×2 (06:35→17:56)
[2019-07-18] MEDS: ISORDIL PO SCH ×3 (09:53→18:05)
[2019-07-18] MEDS: PRILOSEC PO SCH ×2 (09:53→23:59)
[2019-07-18] MEDS: FOLIC ACID PO SCH (09:54)
[2019-07-18] MEDS: CENTRUM TABLET PO SCH (09:54)
[2019-07-18] MEDS: NEURONTIN PO SCH ×2 (09:54→23:59)
[2019-07-18] MEDS: LASIX PO SCH (09:54)
[2019-07-18] MEDS: ASPIRIN PO SCH (09:54)
[2019-07-18] MEDS: PERIDEX MT SCH ×2 (09:55→23:59)
[2019-07-18] MEDS: ICAR-C PO SCH (09:55)
[2019-07-18] MEDS: COREG PO SCH (09:55)
[2019-07-18] MEDS: APRESOLINE PO SCH ×3 (09:55→18:05)
[2019-07-18 11:16] LABS: BASO# 0.01 X1000 (0.0-0.2); BASO% 0.1 % (0.0-0.8); EOS# 0.09 X1000 (0.0-0.7); EOS% 1.2 % (0.0-10.0); HEMATOCRIT 25.2 % (42.0-52.0); HEMOGLOBIN 7.6 g/dL (14.0-18.0); LYMPH# 1.49 X1000 (1.2-3.4); LYMPH% 19.7 % (20.5-51.1); MCH 30.5 PG (27-31); MCHC 30.2 g/dL (33-37); MCV 101.2 FL (81-99); MONO% 11.9 % (1.7-9.3); MPV 11.8 FL (7.4-10.4); NEUT# 5.08 X1000 (1.4-6.5); NEUT% 67.1 % (42.2-75.2); PLT 134 X1000 (130-400); RBC 2.49 XMIL (4.7-6.1); RDW 17.5 % (11.5-14.5); WBC 7.57 X1000 (4.8-10.8)
[2019-07-18 11:25] LABS: CALCIUM 8.4 mg/dL (8.8-10.2); CREATININE 1.7 mg/dL (0.7-1.2); POTASSIUM 4.6 mmol/L (3.5-5.1)
[2019-07-18] MEDS: MIRALAX PO SCH (11:43)
--- NOTE | 2019-07-18 16:05 | PROGRESS NOTE ---
DATE: 07/18/2019 SUBJECTIVE: This patient is resting comfortably in bed. He is complaining of left foot pain. He is status post left transmetatarsal amputation due to peripheral vascular disease, necrosis of the left forefoot. OBJECTIVE: Vital Signs: Temperature 98.7 degrees, pulse 69, respiratory rate 18, blood pressure 137/63, oxygen saturation 100% on 2 L of nasal cannula. HEENT: Head normocephalic, no trauma. PERRLA. Neck: Supple. No JVD. No masses. Central trachea. Chest: Clear to auscultation. No wheezing. No rales. Abdomen: Soft, nontender, nondistended. No hepatosplenomegaly. Extremities: No clubbing. No cyanosis. He does have a left foot that is wrapped with a new dressing. No signs of bleeding. Some edema in that leg also. Neurological: The patient is awake, alert. He is oriented x3. No focal neurological deficit. LABORATORY: WBC 7.5, hemoglobin 7.6, hematocrit 25.2. Pending BMP. ASSESSMENT AND PLAN: 1. Peripheral vascular disease with necrosis of the left forefoot, status post left transmetatarsal amputation. Postoperative day #1. We will continue with the same management, pain medication, and home medications. He seems to be doing fairly good. 2. Chronic kidney disease. Stable. Continue with same management. 3. Type 2 diabetes. Continue with same treatment and sliding scale insulin. 4. Anemia, multifactorial. Will monitor and will transfuse if the hemoglobin drops below 7. 5. History of coronary artery disease with no chest pain at this moment. 6. Status post left femoral to [id number] popliteal bypass, transmetatarsal amputation of the 1st and 2nd toes, dated 05/22/2019. Aware. Now, he has been amputated again. cc: Rigo Franco MD
--- NOTE | 2019-07-18 21:27 | GENERAL SURGERY PROGRESS NOTE ---
DATE: 07/18/2019 SUBJECTIVE: He is postoperative day 1, after a left transmetatarsal amputation. OBJECTIVE: He is afebrile. Hemodynamics are good. ASSESSMENT/PLAN: She is complaining of pain in his foot. He is on [place] 7.5. We are not going to unwrap his foot since he is only 1-day postoperative. No other interventions currently. cc: Rui Hackett MD
--- NOTE | 2019-07-18 23:13 | HISTORY AND PHYSICAL ---
CHIEF COMPLAINT: Peripheral vascular disease with necrosis of the left foot. HISTORY OF PRESENT ILLNESS: This is a 63-year-old male who came in to see Dr. Bhanu Blandon related to left transmetatarsal amputation. This went well and we were asked to admit the patient. The patient's dressing is clean, dry and intact. He seems comfortable with his pain medications. He will keep an eye on his blood counts and he will be admitted inpatient on the medical floor for further evaluation and treatment. PAST MEDICAL HISTORY: Chronic systolic heart failure, chronic kidney disease, hypertension, coronary artery disease, peripheral arterial disease status post femoral- popliteal bypass, gout, folic acid deficiency, hyperlipidemia, diabetes mellitus type 2, history of cocaine abuse, chronic obstructive pulmonary disease. PREVIOUS SURGICAL HISTORY: Left femoral-popliteal bypass, left 1st and 2nd toe amputation, coronary artery disease stenting, right foot surgery and then left transmetatarsal amputation by Dr. Blandon. FAMILY HISTORY: Type 2 diabetes and coronary artery disease in first-degree relatives. SOCIAL HISTORY: I believe he resides in a longterm. No alcohol, tobacco or illicit drugs. ALLERGIES: No known drug allergies. HOME MEDICATIONS: Felix packet 1 p.o. b.i.d., oxycodone 5 q.4 p.r.n., aspirin 81 mg daily, Lipitor 40 mg p.o. daily, carvedilol 6.25 mg p.o. b.i.d., folic acid 1 mg p.o. daily, furosemide 60 mg p.o. daily, Neurontin 100 mg p.o. b.i.d., hydralazine 10 mg p.o. t.i.d., NovoLog 70/30 four units subcutaneous b.i.d. a.c., Icar C 1 p.o. daily, isosorbide 5 mg p.o. t.i.d., milk of magnesia 30 mL p.r.n., multivitamin 1 p.o. daily, Prilosec 40 mg p.o. b.i.d., MiraLAX 17 g p.o. daily. REVIEW OF SYSTEMS: Fourteen-point review of systems conducted with the patient. Pertinent positives listed above in the HPI. He does have some mild left foot pain, but all other systems were reviewed and found to be negative. PHYSICAL EXAMINATION: VITAL SIGNS: Temperature 98.7, pulse 79, respirations 18, blood pressure 169/92, oxygen saturation 100% on 2 L nasal cannula. GENERAL: Chronically-ill male lying in the medical floor bed somewhat mildly lethargic but is arousable, follows all commands. HEENT: Head is atraumatic, normocephalic. Pupils equal, round, reactive to light. Extraocular eye movement is intact. Sclera is anicteric. Conjunctiva is pale. Oral mucosa is somewhat dry and tacky. NECK: Supple. No JVD. No thyromegaly. Trachea is midline. No cervical lymphadenopathy. CARDIAC: S1, S2 appreciated. No murmurs, gallops, rubs. LUNGS: Clear to auscultation bilaterally. No rhonchi, wheezes, rales. ABDOMEN: Soft, nondistended, nontender. Bowel sounds present all 4 quadrants, normoactive. No pulsatile mass. No organomegaly. EXTREMITIES: Left lower extremity dressing is clean, dry, intact. Patient has amputation of the 1st and 2nd left toes as well. Right foot is somewhat cool to touch. Diminished upper extremity pulses. Lower extremities were close to nonpalpable. NEUROLOGIC: Alert and oriented times 3. No focal motor deficits. Otherwise nonfocal examination. LABORATORY DATA: WBC 8.60. Hemoglobin 8.2. Hematocrit 28.1. Platelet count 17.6. Sodium 141. Potassium 4.8. Chloride 106. Carbon dioxide 24. BUN 27. Creatinine 1.8. Glucose 130. ASSESSMENT: 1. Recent left transmetatarsal amputation secondary to peripheral vascular disease with necrosis. 2. Chronic kidney disease. 3. Diabetes mellitus type 2. 4. Anemia. 5. Coronary artery disease. PLAN: Monitor patient on the medical floor. Restart his home medications. His chronic kidney disease is stable. Continue pain management per Orthopedics orders as well as monitoring dressings. Sliding scale insulin with fingerstick blood sugar for his diabetes. Anemia is multifactorial. We will continue to monitor. He appears to be close to his baseline. Further recommendations per patient clinical course. Dictated by CLAY Baum for Kumar Gordon MD I have performed a face to face diagnostic evaluation. Labs/Xrays- reviewed. Exam- Chest - clear, CV- regular, Ext- wound, dry and intact. A/P- S/p left transmetatarsal amputation, CKD- Admit, General surgery consult, monitor renal function. Dr. Gordon cc: CLAY Baum MD [facility]ishma
[2019-07-18] MEDS: LIPITOR PO SCH (23:59)
[2019-07-19] MEDS: NOVOLOG MIX 70/30 SUBQ SCH ×2 (06:44→18:16)
[2019-07-19] MEDS: HUMALOG SUBQ SCH ×4 (06:44→20:33)
[2019-07-19 07:13] LABS: BASO# 0.01 X1000 (0.0-0.2); BASO% 0.2 % (0.0-0.8); EOS# 0.12 X1000 (0.0-0.7); HEMATOCRIT 24.5 % (42.0-52.0); HEMOGLOBIN 7.3 g/dL (14.0-18.0); LYMPH# 1.84 X1000 (1.2-3.4); LYMPH% 30.1 % (20.5-51.1); MCH 29.4 PG (27-31); MCHC 29.8 g/dL (33-37); MCV 98.8 FL (81-99); MONO# 0.78 X1000 (0.11-0.59); MONO% 12.8 % (1.7-9.3); MPV 11.9 FL (7.4-10.4); NEUT# 3.36 X1000 (1.4-6.5); NEUT% 54.9 % (42.2-75.2); PLT 127 X1000 (130-400); RBC 2.48 XMIL (4.7-6.1); WBC 6.11 X1000 (4.8-10.8)
[2019-07-19] MEDS: NORCO-7.5 PO PRN ×2 (07:26→20:21)
[2019-07-19 07:35] LABS: CALCIUM 8.4 mg/dL (8.8-10.2); POTASSIUM 4.5 mmol/L (3.5-5.1)
--- NOTE | 2019-07-19 07:53 | GENERAL SURGERY PROGRESS NOTE ---
DATE: 07/19/2019 Mr. Stewart is doing generally well. His wound is unwrapped today inspected. The transmetatarsal amputation site looks healthy. It was treated with Betadine and re-wrapped. We will simply put him on Kefzol to help assist with infection prevention. cc: Rui Hackett MD
[2019-07-19] MEDS: ASPIRIN PO SCH (09:02)
[2019-07-19] MEDS: PRILOSEC PO SCH ×2 (09:03→20:18)
[2019-07-19] MEDS: LASIX PO SCH (09:03)
[2019-07-19] MEDS: ICAR-C PO SCH (09:04)
[2019-07-19] MEDS: FOLIC ACID PO SCH (09:04)
[2019-07-19] MEDS: NEURONTIN PO SCH ×2 (09:04→20:18)
[2019-07-19] MEDS: ISORDIL PO SCH ×3 (09:04→16:34)
[2019-07-19] MEDS: CENTRUM TABLET PO SCH (09:04)
[2019-07-19] MEDS: PERIDEX MT SCH ×2 (09:05→20:19)
[2019-07-19] MEDS: APRESOLINE PO SCH ×3 (09:05→18:16)
[2019-07-19] MEDS: COREG PO SCH ×3 (09:05→20:19)
[2019-07-19] MEDS: KEFZOL 1 GM/D5W 1 GM/50 ML IVPB IV SCH ×3 (09:09→23:43)
[2019-07-19] MEDS: MIRALAX PO SCH ×3 (11:22→23:43)
--- NOTE | 2019-07-19 16:11 | PROGRESS NOTE ---
DATE: 07/19/2019 SUBJECTIVE: This patient is resting comfortably in bed. He is still complaining of some left foot pain, the wound has been checked by Surgery Department and it looks like it is looking good. OBJECTIVE: Vital Signs: Temperature 97.7 degrees, pulse 71, respiratory rate 16, blood pressure 143/71, oxygen saturation 97 on room air. HEENT: Head normocephalic, no trauma. PERRLA. Neck: Supple. No JVD. No masses. Central trachea. Chest: Clear to auscultation. No wheezing. No rales. Abdomen: Soft, nontender, nondistended. No hepatosplenomegaly. Extremities: No clubbing, no cyanosis. He does have a left foot that is wrapped with a new dressing. No signs of bleeding. Some edema in that leg also just mild. Neurological: The patient is awake alert, he is oriented. No focal neurological deficits. LABORATORY: WBC 6.1, hemoglobin 7.3, hematocrit 24.5, platelet 127,000. Sodium 138, potassium 4.5, chloride 105, bicarbonate 22, BUN 30, creatinine 2, glucose 116, calcium 8.4. ASSESSMENT AND PLAN: 1. Recent left transmetatarsal amputation secondary to peripheral vascular disease with necrosis, status post left transmetatarsal amputation postoperative day #2. Surgery Department just evaluated this patient and his wound and he seems to be doing good. We will continue with same management. Once Surgery Department states that he can be discharged, we will go ahead and discharge him, I do believe he lives in a jail when I ask him where is he going to go upon discharge he mentioned 3 different places including a jail so I am not quite sure about it. 2. Chronic kidney disease stable. 3. Type 2 diabetes. Continue sliding scale insulin and pattern of blood sugar. 4. Anemia, multifactorial. We will transfuse if the hemoglobin drops to 7 or less. 5. History of coronary artery disease with no chest pain at this moment. 6. Status post left femoral to [id number] popliteal bypass, transmetatarsal amputation of the 1st and 2nd toes dated 05/22/2019 aware. Now he has been amputated again. cc: Rigo Franco MD
[2019-07-19] MEDS: LIPITOR PO SCH (20:19)
[2019-07-20] MEDS: NORCO-7.5 PO PRN ×3 (01:54→17:57)
[2019-07-20] MEDS: HUMALOG SUBQ SCH ×4 (06:23→20:03)
[2019-07-20] MEDS: NOVOLOG MIX 70/30 SUBQ SCH ×2 (06:24→15:54)
[2019-07-20 07:15] LABS: BASO# 0.01 X1000 (0.0-0.2); BASO% 0.2 % (0.0-0.8); EOS# 0.16 X1000 (0.0-0.7); EOS% 2.7 % (0.0-10.0); HEMATOCRIT 23.1 % (42.0-52.0); HEMOGLOBIN 6.7 g/dL (14.0-18.0); LYMPH# 1.61 X1000 (1.2-3.4); LYMPH% 27.5 % (20.5-51.1); MCH 28.9 PG (27-31); MCV 99.6 FL (81-99); MONO# 0.67 X1000 (0.11-0.59); MONO% 11.4 % (1.7-9.3); MPV 11.8 FL (7.4-10.4); NEUT# 3.41 X1000 (1.4-6.5); NEUT% 58.2 % (42.2-75.2); PLT 120 X1000 (130-400); RBC 2.32 XMIL (4.7-6.1); WBC 5.86 X1000 (4.8-10.8)
[2019-07-20 07:44] LABS: CALCIUM 8.3 mg/dL (8.8-10.2); CREATININE 2.2 mg/dL (0.7-1.2); POTASSIUM 4.5 mmol/L (3.5-5.1)
[2019-07-20] MEDS: PRILOSEC PO SCH ×2 (09:33→20:02)
[2019-07-20] MEDS: KEFZOL 1 GM/D5W 1 GM/50 ML IVPB IV SCH ×2 (09:33→16:58)
[2019-07-20] MEDS: APRESOLINE PO SCH ×3 (09:34→20:02)
[2019-07-20] MEDS: ISORDIL PO SCH ×3 (09:34→20:02)
[2019-07-20] MEDS: LASIX PO SCH (09:34)
[2019-07-20] MEDS: ASPIRIN PO SCH (09:34)
[2019-07-20] MEDS: FOLIC ACID PO SCH (09:34)
[2019-07-20] MEDS: ICAR-C PO SCH (09:34)
[2019-07-20] MEDS: CENTRUM TABLET PO SCH (09:34)
[2019-07-20] MEDS: NEURONTIN PO SCH ×2 (09:34→20:02)
[2019-07-20] MEDS: COREG PO SCH ×2 (09:34→20:03)
[2019-07-20] MEDS: MIRALAX PO SCH ×2 (09:35→20:03)
[2019-07-20] MEDS: PERIDEX MT SCH ×2 (09:35→20:03)
[2019-07-20] MEDS ORDERED: NS 500 ML IV ONE (15:13)
--- NOTE | 2019-07-20 18:54 | PROGRESS NOTE ---
DATE: 07/20/2019 SUBJECTIVE: Mr. Stewart refers to be doing okay. He said his left transmetatarsal stump dressing is remarkably wet. OBJECTIVE: Vital signs: Blood pressure is 152/63, pulse of 78, respirations of 20, temperature is 98.6 degrees. General: Mr. Stewart is a 63-year-old gentleman. He is in bed, no distress. HEENT: Mucosa is pink and moist. Anicteric. Acyanotic. Neck: Supple. Chest: Good air entry bilateral. No crepitations. Cardiovascular: Regular rate and rhythm. Abdomen: Soft, nontender. There was not any hepatosplenomegaly. Extremities: There is some dark hyperpigmentation of the lower extremities but trace pedal edema. Left lower extremity has a new transmetatarsal site, which is covered with sterile dressing but is wet. LABORATORY DATA: Hemoglobin is 6.7, WBC and platelet count normal, creatinine is 2.2. ASSESSMENT: 1. Severe peripheral vascular disease status post left transmetatarsal amputation. Today is day 3 postop. Surgery is on board. 2. Peripheral vascular disease status post left femoral to above knee popliteal bypass. 3. Chronic kidney disease stage 4. 4. Diabetes mellitus type 2. 5. Anemia. Hemoglobin has dropped below 7 so he is getting a unit of blood transfusion today. 6. History of coronary artery disease. The patient is currently asymptomatic. 7.History of ischemic cardiomyopathy with recent ejection fraction of 20% in the setting of severe global hypokinesis. This was done on June 12, 2019. The patient currently does not look fluid overloaded. PLAN: So for now for today, we are going to wait on surgery to look at his stump and get wound care to redress it. I have also discussed the plan with the nurse. cc: Sanjay Cronin MD [facility]ALTHKarishma
--- NOTE | 2019-07-20 19:21 | GENERAL SURGERY PROGRESS NOTE ---
DATE: 07/20/2019 SUBJECTIVE: Doing okay. Had some pain in his foot. Mobility is limited. Dressing changes going well. No fevers. No tachycardia documented. I reviewed his labs. His white count is normal at 5. Hematocrit is 23. This has been chronically low. His creatinine is 2.2, which is around his baseline. Glucose has been 160s up to as high as 189 in the past 24 hours. ASSESSMENT AND PLAN: A 63-year-old gentleman status post left transmetatarsal amputation. Continue local wound care. Dressing changes due this afternoon. He has been started on prophylactic Ancef, although, I do not have a lot of suspicion for local infection. Continue medical management. Local wound care. I do think he is going to need more long-term rehabilitation. Difficult for him to care for himself at home with his multiple medical issues. cc: Elke Blandon MD
[2019-07-20] MEDS: LIPITOR PO SCH (20:02)
[2019-07-21] MEDS: KEFZOL 1 GM/D5W 1 GM/50 ML IVPB IV SCH ×3 (00:39→18:31)
[2019-07-21] MEDS: NORCO-7.5 PO PRN ×3 (05:07→21:55)
[2019-07-21] MEDS: NOVOLOG MIX 70/30 SUBQ SCH ×2 (06:54→18:07)
[2019-07-21] MEDS: HUMALOG SUBQ SCH ×4 (06:54→21:57)
[2019-07-21 06:55] LABS: HEMATOCRIT 25.7 % (42.0-52.0); HEMOGLOBIN 7.7 g/dL (14.0-18.0); MCH 29.2 PG (27-31); MCV 97.3 FL (81-99); MPV 11.6 FL (7.4-10.4); RBC 2.64 XMIL (4.7-6.1); RDW 17.9 % (11.5-14.5); WBC 6.77 X1000 (4.8-10.8)
[2019-07-21 07:03] LABS: ALBUMIN 2.8 g/dL (3.5-5.0); CALCIUM 8.4 mg/dL (8.8-10.2); CREATININE 2.3 mg/dL (0.7-1.2); MAGNESIUM 1.9 mg/dL (1.5-2.7); PHOSPHORUS 3.1 mg/dL (2.7-4.5)
[2019-07-21] MEDS: PRILOSEC PO SCH ×2 (10:47→21:55)
[2019-07-21] MEDS: APRESOLINE PO SCH ×3 (10:47→18:30)
[2019-07-21] MEDS: FOLIC ACID PO SCH (10:48)
[2019-07-21] MEDS: ICAR-C PO SCH (10:48)
[2019-07-21] MEDS: CENTRUM TABLET PO SCH (10:48)
[2019-07-21] MEDS: COREG PO SCH ×2 (10:48→21:55)
[2019-07-21] MEDS: LASIX PO SCH (10:48)
[2019-07-21] MEDS: ISORDIL PO SCH ×3 (10:50→18:30)
[2019-07-21] MEDS: ASPIRIN PO SCH (10:50)
[2019-07-21] MEDS: PERIDEX MT SCH ×2 (10:53→21:56)
[2019-07-21] MEDS: MIRALAX PO SCH ×2 (10:53→21:56)
[2019-07-21] MEDS: NEURONTIN PO SCH ×2 (10:55→21:55)
[2019-07-21] MEDS ORDERED: MILK OF MAGNESIA PO SCH (21:00)
[2019-07-21] MEDS: LIPITOR PO SCH (21:54)
[2019-07-22] MEDS: KEFZOL 1 GM/D5W 1 GM/50 ML IVPB IV SCH ×2 (01:14→10:49)
[2019-07-22] MEDS: NOVOLOG MIX 70/30 SUBQ SCH (07:00)
[2019-07-22] MEDS: HUMALOG SUBQ SCH ×2 (07:00→11:15)
[2019-07-22] MEDS: NORCO-7.5 PO PRN ×2 (07:46→12:09)
[2019-07-22] MEDS: PERIDEX MT SCH (10:52)
[2019-07-22] MEDS: ICAR-C PO SCH (10:52)
[2019-07-22] MEDS: ASPIRIN PO SCH (10:52)
[2019-07-22] MEDS: ISORDIL PO SCH (10:52)
[2019-07-22] MEDS: LASIX PO SCH (10:53)
[2019-07-22] MEDS: CENTRUM TABLET PO SCH (10:54)
[2019-07-22] MEDS: FOLIC ACID PO SCH (10:54)
[2019-07-22] MEDS: PRILOSEC PO SCH (10:54)
[2019-07-22] MEDS: COREG PO SCH (10:54)
[2019-07-22] MEDS: MIRALAX PO SCH (10:54)
[2019-07-22] MEDS: APRESOLINE PO SCH (10:54)
--- NOTE | 2019-07-22 10:59 | PROGRESS NOTE ---
DATE: 07/21/2019 SUBJECTIVE: This morning Mr. Stewart refers to be doing fairly okay. His dressing had been changed. OBJECTIVELY: Vitals: Blood pressure is 142/70 pulse of 71, respirations 18, temperature is General: Mr. Stewart is a 63-year-old gentleman. He is in bed. He is not in any distress. HEENT: Mucosa is pink and moist. Anicteric. Acyanotic. Neck: Supple. Chest: Good air entry bilaterally. There were no crepitations, no rhonchi. Cardiovascular: Regular rate and rhythm. No murmurs, no rubs, no gallops. GI: Abdomen was soft, nontender. Bowel sounds present. No hepatosplenomegaly. Extremities: Hyperpigmentation of the lower extremities with trace pedal edema. The left lower extremity has a sterile dressing over the transmetatarsal site. SPEECH LANGUAGE PATHOLOGIST PRN: The patient is awake, alert, and oriented. There is no focal deficit. LABORATORY DATA: Has been reviewed. Hemoglobin is 7.7. Rest of CBC is unremarkable. Chemistry is also reviewed. Creatinine is 2.3. CURRENT MEDICATIONS: Have all been reviewed. ASSESSMENT: 1. Severe peripheral vascular disease, status post transmetatarsal amputation. Today is day 4 postoperatively. Vascular surgery is on board. 2. Status post left femoral to above knee popliteal bypass noted. 3. Chronic kidney disease stage IIIB to IV. 4. Diabetes mellitus type 2. The patient is on insulin regimen. 5. Anemia of acute blood loss. The patient is status post 1 unit of packed red blood cell transfusion. 6. History of ischemic cardiomyopathy with ejection fraction of 20% in the setting of severe global hypokinesis on an echo done on 06/14/2019. The patient is currently not fluid overload. He is on home medications. 7. Disposition is pending a rehab placement. cc: Sanjay Cronin MD MTDKarishma
[2019-07-22] MEDS: NEURONTIN PO SCH (11:00)
[2019-07-22 11:17] VITALS: BP 139/62
--- NOTE | 2019-07-22 11:35 | DISCHARGE SUMMARY ---
ADMISSION DATE: 07/17/2019 DISCHARGE DATE: 07/22/2019 DISPOSITION: [facility]. CONSULTATION DURING THIS ADMISSION: Surgery was consulted. Patient was initially seen by Dr. Blandon, followed up by Dr. Hackett. INVASIVE PROCEDURES DONE DURING THIS ADMISSION: A left transmetatarsal amputation was done by Dr. Blandon. ASSESSMENT: 1. Recent left transmetatarsal amputation secondary to peripheral vascular disease with necrosis. 2. Chronic kidney disease. 3. Diabetes type 2. 4. Coronary artery disease. DIAGNOSES AT THE TIME OF DISCHARGE: 1. Severe peripheral vascular disease with necrosis to the left forefoot. Patient is status post left transmetatarsal amputation. Today is day 4. 2. Peripheral vascular disease, status post left femoral to above-knee popliteal bypass. 3. Chronic kidney disease stage IV. 4. Diabetes mellitus type 2. 5. Anemia of chronic disease. 6. History of coronary artery disease status post stents, currently asymptomatic. 7. History of ischemic cardiomyopathy with recent ejection fraction of 20% in setting of severe global hypokinesis. Echocardiogram was done in May 2019. DISCHARGE MEDICATIONS: 1. Coreg 6.25 b.i.d. 2. Gabapentin 100 mg b.i.d. 3. Iron. 4. Folic acid 1 mg daily. 5. Furosemide 60 mg p.o. daily. 6. Novolin 70/30 four units b.i.d. 7. Aspirin 81 mg p.o. daily. 8. Atorvastatin 40 mg p.o. at bedtime. 9. Hydralazine 10 mg three times per day. 10. Isordil 5 mg two times per day. 11. Omeprazole 40 mg b.i.d. 12. Cephalexin 500 b.i.d. 13. Percocet 5 mg p.o. q. 4 hours p.r.n. PRESENTING COMPLAINT: Necrosis of the left foot. HISTORY OF PRESENTING COMPLAINT: Mr. Stewart is a 63-year-old male, who is known to have severe peripheral vascular disease status post femoral-popliteal bypass. However, the forefoot on the left continues to have some necrosis. He was evaluated to be admitted for transmetatarsal amputation. HOSPITAL COURSE: Mr. Stewart was admitted to the medical floor, was started on IV antibiotics, and was evaluated by Surgery. A decision was made for transmetatarsal amputation on the left foot, which was successfully done by Dr. Blandon. Postoperatively, he has been seen by Wound Care and Surgery continues to follow. He did have hemoglobin and hematocrit drop to 6.7, and he was given 1 unit of PRBC; yesterday it had gone up to 7.7, is not showing any evidence of ongoing bleed. His other comorbidities are all under control, and he is on his home medications. This morning he feels a lot better. Vitals: Blood pressure is 144/59, pulse of 67, respiration is 18, temperature is 99.7 degrees. His left foot still has the dressing, but when I took it off the stump is open. There is minimum slough in this. For the most part, the base of the stump is clean with adequate granulation tissue. Mr. Stewart is going to be discharged to [facility] to continue with his wound care, physical therapy and continue controlling his other comorbidities. TIME SPENT FOR DISCHARGE: 37 minutes. cc: MD Elke Isabel MD Hiteshri S. Bhavsar, MD
[2019-07-22] MEDS ORDERED: PNEUMOVAX 23 IM ONE (12:15)
== END 2019-07-22 12:32 | DRG 240 ==
LOC: OR 08:29 → 4N 08:29 → SUATTDRO 14:50 → OBSVTOIN 14:50
PROVIDERS: ATTEND Internal Medicine